=== PATIENT | female | born 1970 | race Caucasian/White ===

== ENCOUNTER → 2023-06-18 | Outpatient (CLI) | payer MEDICAID, SELFPAY ==
--- NOTE | 2023-06-18 15:40 | BI_ITS ---
MAMMOGRAPHY - BILATERAL SCREENING REASON FOR EXAM: Female, 52 years old. Routine annual screening examination. PERTINENT HISTORY: Grandmother with breast cancer. TECHNIQUE: Digital bilateral breast shannan (3D mammographic acquisition) in the CC and MLO projections. 2-D mediolateral oblique (MLO) and craniocaudad (CC) views of both breasts were obtained. CAD: Full Field Digital Mammography with Computer Added Detection was performed. COMPARISON: Comparison is made with prior outside examination dated October 27, 2014. FINDINGS: Breast Composition: The breasts are extremely dense, which lowers the sensitivity of mammography. There are no dominant masses or suspicious calcifications. Stable bilateral fat containing axillary lymph nodes. No other significant abnormalities are identified. There has been no significant change since the prior study. BI/SCRN MAMM (CAD)W/SHANNAN BILAT IMPRESSION: Stable bilateral screening mammogram. Yearly follow-up mammogram recommended. (A) ASSESSMENT CATEGORY: BIRADS Category 2: Benign. A letter regarding these results will be sent to the patient by the facility within 30 days. Approximately 10% of breast cancers are not detected by mammography. A normal mammogram should not delay biopsy of a clinically suspicious abnormality. [id number] Electronically Signed: Misha Machado MD at 9:35 EDT ,
== END | disposition home or self-care (01) ==
PROVIDERS: Referring Provider Nurse Practitioner Family; Visit Provider Nurse Practitioner Family
DX: Z12.31 Encounter for screening mammogram for malignant neoplasm of breast (principal); Z80.3 Family history of malignant neoplasm of breast
CPT/HCPCS: 77063; 77067

== ENCOUNTER 2023-10-11 08:09 | Day surgery (SDC) | payer MEDICAID, SELFPAY ==
[2023-10-11] VITALS (7 sets, daily range): BP systolic 100–124; BP diastolic 74–85; PULSE 59–74; RESP 14–17; TEMP 35.9–37; O2SAT 99–100; BMI 29.5
--- NOTE | 2023-10-11 08:36 | PCM.PRE.AN2 ---
ASA Classification* ASA Classification ASA Classification: 2 and 3 Assessment & Plan Anesthesia* Anesthesia Assessment Anesthesia Assessment: Discussed sedation and/or anesthesia options, risks, benefits, and alternatives with patient/parents/legal guardian/POA. Questions invited. The patient/parents/legal guardian/POA seems to understand and agrees to proceed with anesthesia plan. Reviewed the physical assessment, medical history, allergy history and patient home medications list prior to surgery/procedure/anesthetic and documented any changes. Performed airway and anesthesia risk assessments. Anesthesia Type Anesthesia Type: MAC (see written pre anesthesia record for full assessment) Anesthesia Focused Assessment* Airway Assessment Mouth opens: >3 cm Mallampati Score: II Focused Labs Anesthesia Preop lab: CBC CHEMISTRY COAG Pre-Assessment Diagnosis/Proposed Procedure Planned Operative Procedure(s): Colonoscopy,EGD Anesthesia History Anesthesia History - human resources team member: Anesthesia History - human resources team member Hx Hospitalization No 10/02/23 13:44 Any Problems With Anesthesia Yes: SLOW TO COME OUT OF 10/02/23 13:44 ANESTHESIA Cholinesterase deficiency No 10/02/23 13:44 You/Your Family Experience No 10/02/23 13:44 fever (hyperthermia) with Relationship Recent Exposure to Contagious Disease Does patient have nerve No 10/02/23 13:44 stimulator Patient instructed to have device shut off --Does patient have Pacemaker or ICD? When Was Last Pacemaker Check QUESTION #4 FULL TEXT: You/Your Family Experience fever (hyperthermia) with Anesthesia Last Oral Intake Last Oral intake: Last Oral Intake NPO since Meds taken in AM with sips of water? Meds patient instructed to take am of surgery PONV PONV - human resources team member: PONV - human resources team member Female Yes 10/02/23 13:44 HX of Motion Sickness No 10/02/23 13:44 HX of N/V After Surgery No 10/02/23 13:44 Non-Smoker No 10/02/23 13:44 Duration of Surgery greater No 10/02/23 13:44 than 60 minutes Number of Risk Factors 1 10/02/23 13:44 PONV Score Low Risk 10/02/23 13:44 Height & Weight Height & Weight: Anesthesia: Height & Weight Height 5 ft 9 in 07/13/23 08:34 Respiratory Assessment Respiratory Assessment - human resources team member: Respiratory Tract Infection Hx - human resources team member Hx Respiratory Tract Infection No 10/02/23 13:44 STOP Sleep Apnea STOP Sleep Apnea - human resources team member: STOP Sleep Apnea - human resources team member Hx Hypertension Yes 10/02/23 13:44 Hx Sleep Apnea No 10/02/23 13:44 CPAP BIPAP Do you snore loudly (louder Yes 10/02/23 13:44 than talking or can be heard Do you often feel tired/ No 10/02/23 13:44 fatigued/ sleepy during daytime? Has anyone observed you stop No 10/02/23 13:44 breathing during sleep? STOP Results Positive 10/02/23 13:44 QUESTION #5 FULL TEXT : Do you snore loudly (louder than talking or can be heard through closed doors)? 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 Specify any problems Hx of Preganancy in last 3 No 10/02/23 13:44 Months Nurse Filling Out Transfusion SFRANTZ 10/02/23 13:44 & Questions: Date: 10/02/23 10/02/23 13:44 Time: 13:47 10/02/23 13:44 Patient unable to answer at this time (ie. confused, unrespo /Reproduction History /Reproductive History - human resources team member: /Reproductive Hx- human resources team member Hx Now No 10/02/23 13:44 Gestational Age (in weeks): EDC: Hx Hx Para Hx Section SAB No 10/02/23 13:44 Active Medications Active Medications: Current Medications Generic Name Dose Route Start Last Admin Trade Name Freq PRN Reason Stop Dose Admin Lactated Ringer's 1,000 mls @ 15 mls/hr 10/11/23 08:[address] [facility] Medical History Wears hearing aid Post-menopausal History of steroid therapy Gastric reflux Non-smoker History of edema History of stress test Hypertension History of broken leg Kidney anomaly, congenital (~09/10/23) History of kidney problems delivery delivered Home Medications ?Medication ?Instructions ?Recorded ?Last Taken ?Type amlodipine 5 mg tablet 5 mg PO QDAY 07/13/23 Unknown History atorvastatin 10 mg tablet 10 mg PO QDAY 07/13/23 Unknown History cholecalciferol (vitamin D3) 50 100 mcg PO QDAY 07/13/23 Unknown History mcg (2,000 unit) capsule (Vitamin D3) fluticasone propionate 50 1 spray intranasal DAILY 07/13/23 Unknown History mcg/actuation nasal spray,suspension lisinopril 40 mg tablet 40 mg PO QDAY 07/13/23 Unknown History loratadine 10 mg tablet 10 mg PO QDAY 07/13/23 Unknown History omeprazole 20 mg capsule,delayed 20 mg PO QDAY 07/13/23 Unknown History release simvastatin 20 mg tablet 20 mg PO DAILY hyperlipidemia 07/13/23 Unknown History vitamin E (dl, acetate) 180 mg 180 mg PO QDAY 07/13/23 Unknown History (400 unit) capsule aspirin 81 mg chewable tablet 1 tab PO DAILY 10/02/23 Unknown History (Nuvia Chewable Low Dose Aspirin) cranberry 500 mg capsule 500 mg PO DAILY 10/02/23 Unknown History Allergy/AdvReac Type Severity Reaction Status Date / Time bee venom protein (honey bee) Allergy Severe Anaphylaxis Verified 10/02/23 13:28 Sulfa (Sulfonamide Allergy Severe Anaphylaxis Verified 10/02/23 13:28 Antibiotics) Family History Grandmother Breast cancer Father Heart disease Myocardial infarction Social History Smoking Status: Never smoker alcohol intake: never substance use type: does not use Review of Systems (Anesthesia) ROS Narrative System reviewed and no additional complaints, except as documented.
[2023-10-11] MEDS: Lactated Ringers 1,000 ML 15 ML IV (08:43)
--- NOTE | 2023-10-11 09:30 | IMM_PTH ---
PATIENT: ERI MEMRBENO LOC: EN U#:[id number] AGE/SX: 53/F ROOM: RE10/11/[address]: Dr. Javier Jones MD : 1970 BED: DIS: 10/11/2023 SPEC #: [id number] RECD: 10/11/23 13:55 STATUS: FIOR REGustavo #: [id number] MINERVA: 10/11/23 09:[address]: Javier Jones DEPT: IMMUNOHISTOCHEMISTRY RECD BY: Pedro Luis Floyd ENTERED: 10/11/23 13:55 SP TYPE: IMMUNO OTHR DR: [facility] Tissues: A - Gastric mucous membrane Procedures: H Pylori (initial) PHYSICIAN & INSTITUTION [place] [address] SPECIMEN INFORMATION: Tissue Source: A- Antrum biopsy Clinical Info: GERD, screening for colon cancer Specimen Number: [id number] CPT code: 34585 METHODOLOGY: Deparaffinized sections of prefer/formalin-fixed tissue or PAP/DQ stained slides are incubated with monoclonal/polyclonal antibodies/oligonucleotide probes. Localization is made via biotin free immunoperoxidase method. Appropriate controls are performed and reacted as expected. Results on target cell population are indicated in the following table: RESULTS: ANTIBODY / CLONE RESULT Block A H Pylori (polyclonal) negative These tests were developed and their performance characteristics determined by [facility]. They may not have been cleared or approved by the U.S. Food and Drug Administration. The FDA has determined that such clearance or approval is not necessary. The above immunohistochemical/dualISH markers are ordered and reviewed by the Pathologist. INTERPRETATION: A. Antrum, biopsy: Negative for Helicobacter pylori organisms. LOIS/ 10/12/2023
--- NOTE | 2023-10-11 09:30 | COLBX_PTH ---
PATIENT: ERI MEMBRENO LOC: EN U#:[id number] AGE/SX: 53/F ROOM: RE10/11/[address]: Dr. Javier Jones MD : 1970 BED: DIS: 10/11/2023 SPEC #: [id number] RECD: 10/11/23 13:23 STATUS: FIOR BERNA #: [id number] MINERVA: 10/11/23 09:[address]: Javier Jones DEPT: SURGICAL PATHOLOGY RECD BY: Ant Villafana ENTERED: 10/11/23 13:42 SP TYPE: COLON BX OTHR DR: Bre[facility] Tissues: A - Gastric mucous membrane B - Gastric mucous membrane C - Esophagus, NOS D - Esophagus, NOS E - Sigmoid colon biopsy F - Rectum, NOS Procedures: Surgery Specimen Level IV HEADER OPERATION: Colonoscopy, polypectomy, biopsy, hemostasis clip EGD PRE-OP DIAGNOSIS: GERD, screening for colon cancer TISSUE SUBMITTED: A- Antral biopsy, B- Fundal mucosal biopsy, C- Gastroesophageal junction biopsy, D- Mid esophagus, E- Sigmoid polyp, F- Rectal mucosal biopsy MICROSCOPIC DIAGNOSIS A. Antral biopsy: Mild gastritis. See microscopic description and comment. B. Fundal mucosa, biopsy: Fragments of gastric mucosa with mild chronic inflammation and focal changes suggestive of fundic gland polyp. C. Gastroesophageal junction, biopsy: A fragment of gastroesophageal mucosa with chronic inflammation. Intestinal metaplasia (goblet cell metaplasia) not identified. See comment. D. Mid esophagus, biopsy: Fragments of squamous mucosa with mild chronic inflammation. E. Sigmoid colon polyp, polypectomy: Fragments of tubular adenoma. F. Rectal mucosa, biopsy: A fragment of colonic mucosa, no pathologic diagnosis. LOIS/ 10/12/2023 COMMENT A. The results of immunohistochemistry for Helicobacter pylori will be reported separately ([id number]). C. This specimen predominantly consists of gastric mucosa. Alcian blue/PAS stain with matched control is used in the evaluation of the specimen. MICROSCOPIC DESCRIPTION Slides are reviewed. A. The specimen shows fragments of gastric mucosa with chronic inflammatory cell infiltrates in the lamina propria consisting of lymphocytes and plasma cells, consistent with mild chronic gastritis. GROSS DESCRIPTION A. Received in fixative is one container labeled with the patient's name and designated Antral biopsy. The specimen consists of two irregular fragments of light youngblood soft tissue that in aggregate measure 0.5 x 0.3 x 0.1 cm. The specimen is totally submitted in one cassette. B. Received in fixative is one container labeled with the patient's name and designated Fundal mucosal biopsy. The specimen consists of two irregular fragments of light youngblood soft tissue that measures 0.5 x 0.3 x 0.1 cm. The specimen is totally submitted in one cassette. C. Received in fixative is one container labeled with the patient's name and designated GE junction biopsy. The specimen consists of one irregular fragment of light youngblood soft tissue that measures 0.3 x 0.3 x 0.1 cm. The specimen is totally submitted in one cassette. D. Received in fixative is one container labeled with the patient's name and designated Mid esophagus biopsy. The specimen consists of multiple irregular fragments of light youngblood soft tissue that in aggregate measure 0.6 x 0.3 x 0.1 cm. The specimen is totally submitted in one cassette. E. Received in fixative is one container labeled with the patient's name and designated Sigmoid polyp. The specimen consists of multiple irregular fragments of light youngblood soft tissue that in aggregate measure 1.0 x 0.3 x 0.1 cm. The specimen is totally submitted in one cassette. F. Received in fixative is one container labeled with the patient's name and designated Rectal mucosal biopsy. The specimen consists of one irregular fragment of light youngblood soft tissue that measures 0.3 x 0.3 x 0.1 cm. The specimen is totally submitted in one cassette. LOIS/ 10/11/2023 TC:1 CPT:05011w4,59228
--- NOTE | 2023-10-11 09:45 | HP.PCM_ITS ---
History and Physical Date of Admission: 10/11/23 Date of Service: 07/13/23 MR#: [id number] Acct: [id number] Name: ERI MEMBRENO Rep #: [id number] : 1970 Provider: Dr. Javier Jones MD Age/Sex: 52/F Location: [facility] Status: Signed Intake Vital Signs 07/13/2407:34 Height 5 ft 9 in Weight: 199 lb 6 oz BMI 29.4 BP 120/82 H Blood Pressure Location Rt brachial Position Sitting Respiration 18 Pulse 69 Pulse Source Monitor Temp 97.2 F L Temp Source Temporal Pulse Oximetry (%) 98 Oxygen Delivery Method room air Intake Visit Reasons: GERD , SCREENING SCOPE Chief Complaint: GERD screening scope Is patient in pain?: No Allergies bee venom protein (honey bee) Allergy (Severe, Verified 07/13/23 08:35) AnaphylaxisSulfa (Sulfonamide Antibiotics) Allergy (Severe, Verified 07/13/23 08:35) Anaphylaxis Medications amlodipine 5 mg tablet 5 mg PO QDAY 07/13/23 [History Confirmed 07/13/23] atorvastatin 10 mg tablet 10 mg PO QDAY 07/13/23 [History Confirmed 07/13/23] cholecalciferol (vitamin D3) 50 mcg (2,000 unit) capsule (Vitamin D3) 100 mcg PO QDAY 07/13/23 [History Confirmed 07/13/23] fluticasone propionate 50 mcg/actuation nasal spray,suspension spray intranasal 07/13/23 [History Confirmed 07/13/23] lisinopril 40 mg tablet 40 mg PO QDAY 07/13/23 [History Confirmed 07/13/23] loratadine 10 mg tablet 10 mg PO QDAY 07/13/23 [History Confirmed 07/13/23] omeprazole 20 mg capsule,delayed release 20 mg PO QDAY 07/13/23 [History Confirmed 07/13/23] simvastatin 20 mg tablet 20 mg PO QPM hyperlipidemia 07/13/23 [History Confirmed 07/13/23] vitamin E (dl, acetate) 180 mg (400 unit) capsule 180 mg PO QDAY 07/13/23 [History Confirmed 07/13/23] PFSH Medical History (Updated 07/13/23 @ 20:[address] Javier Jones MD) delivery delivered Family History (Updated 07/13/23 @ 08:34 by Lisa Fry LPN) Grandmother Breast cancerFather Heart disease Myocardial infarction Social History (Updated 07/13/23 @ 08:34 by Lisa Fry LPN) Smoking Status: Never smoker alcohol intake: never substance use type: does not use HPI HPI HPI: Patient is a 52-year-old female who presents for further evaluation of gastroesophageal reflux disease as well as scheduling screening colonoscopy. They are referred for surgical consultation from Blanquita Lim NP of the [facility]. Patient states that she was first diagnosed with gastroesophageal reflux disease approximately 5 years ago when she was begun on omeprazole. She shares that unfortunately she lost her insurance and was unaware of [id number] PPI therapy so she effectively went off of omepr azole January and March 2023. She shares she had many symptoms during this time and was only later in this interval made aware of the [id number] option. She notes that her symptoms are very well-controlled on omeprazole and that she experiences No breakthrough symptoms even when eating spicy foods. She denies any prior history of EGD. She does confirm that her symptoms are those of reflux rather than heartburn when they are experienced and she describes them as burning like a shot of fireball. She denies any frequent nighttime awakenings. She states she takes dinner between 5 and 7 in the evening and is in bed by 11. She reports she is unable to prop her head because she gets a stiff neck. Patient has not had prior colonoscopy nor any other screening for colon cancer. They describe their bowel habits as normal. They have approximately 2 bowel movements per day and spend roughly a few minutes on the toilet without significant straining. They have not noticed recent bleeding or dark stools. They do not regularly take fiber supplements. Patient has no family history of colon cancer, inflammatory bowel disease, or diverticulitis. The patient's weight is stable. The patient is not prescribed anticoagulants/blood thinners. Relevant prior abdominal surgical history includes: section ROS General General: No weight change, appetite, fatigue, colon cancer, breast cancer or weakness HEENT HEENT: No difficulty swallowing, eye injury, eye surgery, swollen glands or hoarseness Endo Endocrine: No thyroid disease, diabetes mellitus, thyroid cancer, Hair loss, heat intolerance or cold intolerance Skin Skin: No rash or changing moles Musc Musculoskeletal: No back problems, arthritis, rheumatoid arthritis, gout or joint pain Cardio Cardiovascular: Yes high blood pressure; No murmur, pacemaker, heart disease, atrial fibrillation, heart attack, heart stent, palpitations, shortness of breat with exertion or chest pain Psych Psychiatric: Yes anxiety; No depression or hearing voices Resp Respiratory: No shortness of breath, Yes sleep apnea, No cough, No COPD, No asthma, No emphysema and No wheezing Gastro Gastrointestinal: No abdominal pain, No nausea or vomiting, No diarrhea, No constipation, No blood in stool, Yes acid reflux, No hemorrhoids, No ulcers, No gallbladder problem and No black,tarry stools Terry Hematologic: No blood thinners, No blood disorders, No bleeding, No anemia and No blood clots Neuro Neurologic: No numbness, No tingling and No weakness Exam Const General: cooperative and no acute distress Resp Effort & Inspection: normal respiratory effort GI Inspection: non-distended Palpation: soft and nontender Assessment and Plan Assessment and Plan (1) GERD (gastroesophageal reflux disease): Status: Chronic Comment: Patient has a history of chronic gastroesophageal reflux disease that is well- controlled on PPI therapy (omeprazole). In fact, she denies any significant breakthrough symptoms. She has never underwent investigative EGD for this diagnosis and wishes to be checked out for this issue at the same time as her colonoscopy, however, she is not necessarily inclined to pursue antireflux surgery at this time. Plan: EGD to be scheduled concurrent with screening colonoscopy below (2) Screening for colon cancer: Status: Acute Comment: Patient is a 52-year-old female who appears to be at average risk for colon cancer and denies any GI?related symptoms. She has never underwent prior colon cancer screening and wishes to do so at this time. She wishes to know the necessity of this procedure and I inform her that she is 8 years past due given the recommended age of 44 to begin screening. When frame this way she states that she is willing to proceed as recommended. We discussed the need to completed bowel prep as well as the procedure and post procedure results reporting. Plan: Plan will be to complete colonoscopy on first mutually agreeable date under local MAC. Pre-procedure prep discussed and paper instructions provided. Patient is also made aware that she will need to have a cdl truck driver with her the day of the procedure. I have examined the patient and the H&P has been reviewed. There are no clinical changes since date of exam. She does confirm she completed a prep for today's procedure and her output is now clear. She denies any questions related to the procedure. Will now proceed to endoscopy suite for EGD and colonoscopy as discussed in greater detail above.
--- NOTE | 2023-10-11 10:42 | PCM.POST.ANE ---
Anesthesia: Postop Eval I Current Vital Signs Temperature: 98.6 F Pulse Rate: 70 Blood Pressure: 118/85 Respiratory Rate: 14 Pulse Ox: 100 Assessment Airway patent: Yes Spontaneous unlabored respirations: Yes nausea: No Vomiting: No Anesthesia Complication: No Fluid Hydration Crystalloid volume administer (ml): 1 Total IV fluid infused: 1 Progress Note Anesthesia document: Postop Eval 1 completed: No
--- NOTE | 2023-10-11 10:56 | OP.EGD_ITS ---
Patient Name: Tamara Jose Procedure Date: 10/11/2023 9:41 AM Date of : 1970 Age: 53 Procedure: Upper GI endoscopy Indications: Gastro-esophageal reflux disease Providers: Javier Jones MD Referring MD: Breanna Mckeon [facility] Medicines: See the Anesthesia note for documentation of the administered medications Patient Profile: Refer to note in patient chart for documentation of history and physical. Complications: No immediate complications. Estimated blood loss: Minimal. Procedure: Pre-Anesthesia Assessment: - The heart rate, respiratory rate, oxygen saturations, blood pressure, adequacy of pulmonary ventilation, and response to care were monitored throughout the procedure. After obtaining informed consent, the endoscope was passed under direct vision. Throughout the procedure, the patient's blood pressure, pulse, and oxygen saturations were monitored continuously. The colonoscope was introduced through the mouth, and advanced to the second part of duodenum. The upper GI endoscopy was somewhat difficult due to the patient's oxygen desaturation. Successful completion of the procedure was aided by withdrawing and reinserting the scope, performing chin lift, administering oxygen and treating with ventilation. The patient tolerated the procedure fairly well. Scope In: 9:57:08 AM Scope Out: 10:17:41 AM Total Procedure Duration Time 0 hours 20 minutes 33 seconds Findings: No gross lesions were noted in the duodenal bulb, in the first portion of the duodenum and in the second portion of the duodenum. No biopsies or other specimens were collected for this exam. Striped moderately erythematous mucosa without bleeding was found in the gastric body and in the gastric antrum. Biopsies were taken with a cold forceps for histology. Estimated blood loss was minimal. Localized granular mucosa was found in the gastric fundus. Biopsies were taken with a cold forceps for histology. Estimated blood loss was minimal. A small hiatal hernia was present. The Z-line was irregular and was found 38 cm from the incisors. Biopsies were taken with a cold forceps for histology. Estimated blood loss was minimal. A few 2 to 4 mm mucosal nodules with a localized distribution were found in the middle third of the esophagus. Biopsies were taken with a cold forceps for histology. Estimated blood loss was minimal. The exam was otherwise without abnormality. Impression: - No gross lesions in the duodenal bulb, in the first portion of the duodenum and in the second portion of the duodenum. No specimens collected. - Erythematous mucosa in the gastric body and antrum. Biopsied. - Granular gastric mucosa. Biopsied. - Small hiatal hernia. - Z-line irregular, 38 cm from the incisors. Biopsied. - Mucosal nodule found in the esophagus. Biopsied. - The examination was otherwise normal. Recommendation: - Discharge patient to home (via wheelchair). - Resume previous diet today. - No aspirin, ibuprofen, naproxen, or other non-steroidal anti-inflammatory drugs for 2 days after biopsy. - Continue present medications. - Await pathology results. - Telephone my office for pathology results in 1 week. Procedure Code(s): --- Professional --- 47648, Esophagogastroduodenoscopy, flexible, transoral; with biopsy, single or multiple Diagnosis Code(s): --- Professional --- K31.89, Other diseases of stomach and duodenum K44.9, Diaphragmatic hernia without obstruction or gangrene K22.89, Other specified disease of esophagus K21.9, Gastro-esophageal reflux disease without esophagitis CPT copyright 2021 [employer]. All rights reserved. The codes documented in this report are preliminary and upon medical billing coder review may be revised to meet current compliance requirements. Javier Jones MD 10/11/2023 10:56:12 AM This report has been signed electronically. Number of Addenda: 0 Note Initiated On: 10/11/2023 9:41 AM
--- NOTE | 2023-10-11 10:56 | OP.CCLET_ITS ---
[facility] This procedure was performed on September. My impressions and recommendations are as follows: Impressions : - No gross lesions in the duodenal bulb, in the first portion of the duodenum and in the second portion of the duodenum. No specimens collected. - Erythematous mucosa in the gastric body and antrum. Biopsied. - Granular gastric mucosa. Biopsied. - Small hiatal hernia. - Z-line irregular, 38 cm from the incisors. Biopsied. - Mucosal nodule found in the esophagus. Biopsied. - The examination was otherwise normal. Recommendations : - Discharge patient to home (via wheelchair). - Resume previous diet today. - No aspirin, ibuprofen, naproxen, or other non-steroidal anti-inflammatory drugs for 2 days after biopsy. - Continue present medications. - Await pathology results. - Telephone my office for pathology results in 1 week. My findings are described in the full procedure note, which is enclosed. If I can be of further assistance, please feel free to contact me at Doctor phone number(s): , Work: . Sincerely, Javier Jones MD 10/11/2023 10:56:12 AM This report has been signed electronically.
--- NOTE | 2023-10-11 10:58 | PCM.POSTANE2 ---
Anesthesia Postop Eval I Sum Postop Eval Completion status Anesthesia document: Postop Eval 1 completed: No Anesthesia Postop Eval I Summary Anesthesia Postop Eval I Summary: Anesthesia Postop Eval I: Assessment Summary Airway patent Yes 10/11/23 10:42 Spontaneous unlabored Yes 10/11/23 10:42 respirations Mental status nausea No 10/11/23 10:42 Vomiting No 10/11/23 10:42 Anesthesia Postop Eval I: Fluid Summary Crystalloid volume administer 1 10/11/23 10:42 (ml) Colloids volume administered ( ml) Blood Product volume administered (ml) Total IV fluid infused 1 10/11/23 10:42 Anesthesia Postop Eval I: Summary Notes Anesthesia Complication No 10/11/23 10:42 Anesthesia Complication Comment: Post-operative progress note Anesthesia: Postop Eval II Evaluation Mental status: Awake Pain Level: 0 nausea: No Vomiting: No
--- NOTE | 2023-10-11 11:03 | OP.CCLET_ITS ---
10/11/2023 Breanna Mckeon [facility] Re : [facility] This procedure was performed on September. My impressions and recommendations are as follows: Impressions : - Congested mucosa in the rectum. Biopsied. - One 5 mm, non-bleeding polyp in the sigmoid colon, removed with a hot snare. Resected and retrieved. Recommendations : - Discharge patient to home (via wheelchair). - Resume previous diet today. - No aspirin, ibuprofen, naproxen, or other non-steroidal anti-inflammatory drugs for 2 days after biopsy. - Await pathology results. - Repeat colonoscopy date to be determined after pending pathology results are reviewed for surveillance based on pathology results. - Telephone my office for pathology results in 1 week. My findings are described in the full procedure note, which is enclosed. If I can be of further assistance, please feel free to contact me at Doctor phone number(s): , Work: . Sincerely, Javier Jones MD 10/11/2023 11:02:35 AM This report has been signed electronically.
--- NOTE | 2023-10-11 11:03 | OP.COLON_ITS ---
Patient Name: Tamara Jose Procedure Date: 10/11/2023 10:17 AM Date of : 1970 Age: 53 Procedure: Colonoscopy Indications: Screening for colorectal malignant neoplasm Providers: Javier Jones MD Referring MD: Breanna Mckeon [facility] Medicines: See the Anesthesia note for documentation of the administered medications Patient Profile: Refer to note in patient chart for documentation of history and physical. Last Colonoscopy: none. The patient's first colonoscopy is today. Complications: No immediate complications. Estimated blood loss: Minimal. Procedure: Pre-Anesthesia Assessment: - The heart rate, respiratory rate, oxygen saturations, blood pressure, adequacy of pulmonary ventilation, and response to care were monitored throughout the procedure. - The heart rate, respiratory rate, oxygen saturations, blood pressure, adequacy of pulmonary ventilation, and response to care were monitored throughout the procedure. After I obtained informed consent, the scope was passed under direct vision. Throughout the procedure, the patient's blood pressure, pulse, and oxygen saturations were monitored continuously. The colonoscope was introduced through the anus and advanced to the cecum, identified by palpation. The colonoscopy was somewhat difficult due to significant looping. Successful completion of the procedure was aided by changing the patient to a supine position and straightening and shortening the scope to obtain bowel loop reduction. The patient tolerated the procedure fairly well. The quality of the bowel preparation was adequate to identify polyps greater than 5 mm in size. Scope In: 10:19:10 AM Scope Withdrawal Time 0 hours 17 minutes 14 seconds Scope Out: 10:44:35 AM Total Procedure Duration Time 0 hours 25 minutes 25 seconds Findings: The perianal and digital rectal examinations were normal. Pertinent negatives include normal sphincter tone. An area of mildly congested mucosa was found in the rectum. Biopsies were taken with a cold forceps for histology. Estimated blood loss: 3 mL requiring treatment with placement of hemostatic clip(s). A 5 mm, non-bleeding polyp was found in the sigmoid colon. The polyp was pedunculated. The polyp was removed with a hot snare. Resection and retrieval were complete. Estimated blood loss was minimal. Impression: - Congested mucosa in the rectum. Biopsied. - One 5 mm, non-bleeding polyp in the sigmoid colon, removed with a hot snare. Resected and retrieved. Recommendation: - Discharge patient to home (via wheelchair). - Resume previous diet today. - No aspirin, ibuprofen, naproxen, or other non-steroidal anti-inflammatory drugs for 2 days after biopsy. - Await pathology results. - Repeat colonoscopy date to be determined after pending pathology results are reviewed for surveillance based on pathology results. - Telephone my office for pathology results in 1 week. Procedure Code(s): --- Professional --- 75754, Colonoscopy, flexible; with removal of tumor(s), polyp(s), or other lesion(s) by snare technique 17557, 59, Colonoscopy, flexible; with biopsy, single or multiple Diagnosis Code(s): --- Professional --- Z12.11, Encounter for screening for malignant neoplasm of colon K62.89, Other specified diseases of anus and rectum D12.5, Benign neoplasm of sigmoid colon CPT copyright 2021 [employer]. All rights reserved. The codes documented in this report are preliminary and upon leather etcher review may be revised to meet current compliance requirements. Javier Jones MD 10/11/2023 11:02:35 AM This report has been signed electronically. Number of Addenda: 0 Note Initiated On: 10/11/2023 10:17 AM
== END 2023-10-11 11:45 | disposition home or self-care (01) ==
LOC: EN 08:12 → AC 08:12
PROVIDERS: Visit Provider Surgery
PROC: 0DJD8ZZ Inspection of Lower Intestinal Tract, Via Natural or Artificial Opening Endoscopic (ICD-10-PCS; CPT 45378; principal; 2023-10-11 09:25)
DX: Z12.11 Encounter for screening for malignant neoplasm of colon (principal); K21.9 Gastro-esophageal reflux disease without esophagitis; K44.9 Diaphragmatic hernia without obstruction or gangrene; K63.5 Polyp of colon; Z79.899 Other long term (current) drug therapy; K31.89 Other diseases of stomach and duodenum; K22.89 Other specified disease of esophagus; K62.89 Other specified diseases of anus and rectum; K29.70 Gastritis, unspecified, without bleeding
CPT/HCPCS: 45380; 45385; 43239; 45382; 88305; 88342; J7120; J2405

== ENCOUNTER → 2024-01-15 | Outpatient (CLI) | payer MEDICAID, SELFPAY ==
[2024-01-23 14:10] LABS: Age Gdln ACOG Testing 30-65 (.); HPV APTIMA, High Risk Negative (Negative)
[2024-01-23 15:52] LABS: HPV Reflexed? YES, CHARGE PATIENT
== END | disposition home or self-care (01) ==
PROVIDERS: Referring Provider Nurse Practitioner Family; Visit Provider Nurse Practitioner Family
DX: Z01.419 Encounter for gynecological examination (general) (routine) without abnormal findings (principal)
CPT/HCPCS: 87624; 88175; G0145

== ENCOUNTER → 2024-03-24 | Outpatient (CLI) | payer MEDICAID, SELFPAY ==
--- NOTE | 2024-03-24 06:55 | CT_ITS ---
STUDY: CT CHEST WITHOUT CONTRAST REASON FOR EXAM: Female, 53 years old. HYPERTENSION RADIATION DOSAGE (If Supplied By Facility): CTDIvol = ( 12.19 ) mGy, DLP = ( 195.04 ) mGycm TECHNIQUE: Transaxial imaging was performed without the administration of intravenous contrast material. Cardiac over read examination. Individualized dose optimization techniques were used for this CT. COMPARISON: No relevant priors. FINDINGS: CHEST Increased linear markings at the lung bases slightly worse on the right side suggestive of scarring. Calcified granuloma in the superior aspect of the left lower lobe. Focal right calcified pleural plaque There are calcifications of the coronary arteries. Normal mediastinum. Normal hilar regions. Normal unenhanced pulmonary arteries. Normal aorta arch and descending thoracic aorta. There are degenerative changes of the thoracic spine. There is no demonstrated abnormality of the visualized upper abdomen. CT/Limited Chest CT Cardiac Only IMPRESSION: Findings suggestive of bibasilar scarring and calcified granuloma in the superior aspect of the left lower lobe. Coronary artery calcification. Electronically Signed: Misha Machado MD at 12:20 EST ,
--- NOTE | 2024-03-24 08:10 | CA.SCORE ---
Calcium Scoring Date of Study:: 03/24/24 Indications Indications: Hypertension hyperlipidemia Coronary Calcium Scoring: High-resolution Computed Tomographic imaging of the chest was performed on [03/24/2024], with particular attention paid to the coronary arteries. Images from the examination were analyzed for the presence and extent of coronary artery calcification , using coronary calcium quantification software. The patient tolerated the procedure well and there were no complications. The results of the coronary calcification analysis are provided below. Findings Coronary Artery Left Main (LM): 48 Left Anterior Descending (LAD): 87 Left Circumflex (LCX): 0 Right Coronary Artery (RCA): 0 Total Agatston Score: 135 Percentile Ranking: Greater than 90th percentile Calcium Scoring Interpretation: Different methods to categorize the overall amount of coronary plaque. Overall amount CAC SIS Visual of coronary plaque P1 Mild -100 <2 1-2 vessels with mild amount of plaque P2 Moderate 101-300 3-4 1-2 vessels with moderate amount, 3 vessels with mild amount of plaque P3 Severe 301-999 5-7 3 vessels with moderate amount, 1 vessel with severe amount of plaque P4 Extensive >1000 >8 2-3 vessels with severe amount of plaque Calcium Score: Moderate: 1-2 vessels w/moderate amt, 3 vessels w/mild amt of plaque Conclusion: Moderate atherosclerotic plaquing noted in 1-2 vessels.
== END | disposition home or self-care (01) ==
PROVIDERS: PCP Nurse Practitioner Family; Referring Provider Nurse Practitioner Family; Visit Provider Nurse Practitioner Family
DX: I10 Essential (primary) hypertension (principal); E78.5 Hyperlipidemia, unspecified; Z82.49 Family history of ischemic heart disease and other diseases of the circulatory system
CPT/HCPCS: 75571; 76380

== ENCOUNTER → 2024-06-13 | Outpatient (CLI) | payer MEDICAID, SELFPAY ==
--- NOTE | 2024-06-17 14:42 | STRESSREP_ITS ---
Stress Test Report Date: 06/13/2024 Procedure: Exercise tolerance test Indications: CAD Consent: Per the patient Procedure: The patient exercised on a Jean Carlos protocol for 6 minutes achieving a peak heart rate of 166 bpm (100% predicted maximal heart rate) with a peak blood pressure 162/90 mmHg and a peak MET capacity of approximately 7 MET's. The baseline ECG demonstrated normal sinus rhythm. The peak exercise ECG demonstrated no significant ischemic changes. [There were no cardiac dysrhythmias pretest, during exercise, or recovery]. The functional capacity was considered normal for age. The patient had no complaint of chest discomfort during exercise or recovery. The examination was discontinued secondary to achieving target heart rate. Impression: 1. Technically adequate (percent predicted maximal heart rate greater than 85%) exercise tolerance test 2. Stress test is negative for exercise-induced chest pain. 3. Stress test test is negative for exercise-induced EKG changes of ischemia. 4. Functional capacity is normal for age This note was generated with [employer] software. It may contain incorrect words, spelling, and punctuation that were not noted in checking the note before signing.
== END | disposition home or self-care (01) ==
LOC: CVS 11:08
PROVIDERS: PCP Nurse Practitioner Family; Referring Provider Internal Medicine Cardiovascular Disease; Visit Provider Internal Medicine Cardiovascular Disease
DX: E78.5 Hyperlipidemia, unspecified (principal); I25.10 Atherosclerotic heart disease of native coronary artery without angina pectoris
CPT/HCPCS: 93017

== ENCOUNTER → 2024-06-20 | Outpatient (CLI) | payer MEDICAID, SELFPAY ==
--- NOTE | 2024-06-20 09:56 | BI_ITS ---
EXAM: SCRN MAMM (CAD)W/SHANNAN BILAT 06/20/2024 CLINICAL HISTORY: F, Age 53 y/o , SCREENING. Family history of breast cancer in maternal grandmother in her 70s. TECHNIQUE: Bilateral screening digital breast tomosynthesis with 2D and 3D images. Computer aided detection. COMPARISON: 06/18/2023 FINDINGS: TISSUE DENSITY: The breast tissue is heterogenously dense, which may obscure small masses. The mammogram demonstrates that the patient has dense breasts. Supplemental screening with whole breast ultrasound or MRI may be considered for further evaluation. Bilateral Breast Mammographic Findings: No significant masses, calcifications or other abnormalities are identified. BI/SCRN MAMM (CAD)W/SHANNAN BILAT IMPRESSION: There is no mammographic evidence of malignancy in either breast. OVERALL FINAL ASSESSMENT: BIRADS 1 NEGATIVE. RECOMMENDATION: Routine annual follow-up in 1 Year A letter with findings and recommendations will be mailed to the patient. Reading Location: [id number]
== END | disposition home or self-care (01) ==
PROVIDERS: PCP Nurse Practitioner Family; Referring Provider Nurse Practitioner Family; Visit Provider Nurse Practitioner Family
DX: Z12.31 Encounter for screening mammogram for malignant neoplasm of breast (principal); Z80.3 Family history of malignant neoplasm of breast
CPT/HCPCS: 77063; 77067

== ENCOUNTER → 2024-09-10 | Outpatient (CLI) | payer MEDICAID, SELFPAY ==
[2024-09-10 17:09] LABS: Absolute Lymphocyte Count 0.77 X10^3/uL (0.83-4.51); Absolute Neutrophil Count 5.2 X10^3/uL (2.0-7.7); Basophil# 0.03 X10^3/uL; Basophil% 0.4 % (0-1); Eosinophil# 0.47 X10^3/uL; Eosinophils% 6.9 % (0-5); Hematocrit 41.7 % (37-47); Hemoglobin 13.8 g/dL (12.0-15.0); Lymphocyte # 0.77 X10^3/ul (0.83-4.51); Lymphocyte % 11.4 % (19-41); Mean Corp Hgb Conc 33.1 g/dL (32-36); Mean Corpuscular Hgb 30.9 pg (27.0-32.0); Mean Corpuscular Volume 93.3 fL (81-99); Mean Platelet Vol. 11.9 fl (6.2-12.0); Monocyte# 0.27 X10^3/uL; NRBC Flagged by Analyzer 0 % (0-5); Neutrophil % 76.9 % (47-70); Platelet Count 216 K/mm3 (150-450); RBC Distribution Width CV 13.5 % (11.6-14.6); RBC Distribution Width SD 45.9 fl (35.1-43.9); Red Blood Count 4.47 M/mm3 (4.2-5.4); White Blood Count 6.8 K/mm3 (4.4-11.0)
[2024-09-10 17:50] LABS: ALB/GLOB Ratio 1.3 RATIO (0.9-2.4); AST(SGOT) 98 U/L (<=31); Alanine Aminotransfer ALT/SGPT 100 U/L (<=34); Albumin, Serum 3.8 g/dL (3.5-5.0); Alkaline Phosphatase 74 U/L (35-104); Anion Gap 11 (5-15); BUN 8 mg/dL (4-19); BUN/Creat Ratio 11.9 RATIO (10-20); Bilirubin, Direct 0.27 mg/dL (0.00-0.30); Calcium,Total 9.4 mg/dL (7.6-11.0); Carbon Dioxide 24.4 mmol/L (21.0-32.0); Chloride 104 mmol/L (98-108); Cholesterol 125 mg/dL (<=200); Creatinine, Serum 0.68 mg/dL (0.70-1.20); EST Glomerular Filtration Rate 103 (>60); Globulin 2.9 g/dL (2.2-4.2); Glucose 106 mg/dL (70-99); High Density Lipoprotein 35 mg/dL; Low Density Lipoprotein Calc. 75 mg/dL; Potassium 3.8 mmol/L (3.3-5.1); Protein, Total 6.7 g/dL (5.9-8.4); Sodium Level 139 mmol/L (133-145); Total Bilirubin 0.63 mg/dL (0.00-1.30); Triglycerides 76 mg/dL; Very Low Density Lipoprotein 15 mg/dL (5-40)
--- OUTSIDE RECORDS SUMMARY | 2024-09-10 21:02 | XMS RPT_ITS | CCD ---
Author Organization [facility] CliniSywv Care Team Providers Care Teletype Or Varitype Keyboard Operator Name Role Phone ANGELINA, BERTHA Admitting Unavailable ANGELINA, BERTHA Attending Unavailable ANGELINA, BERTHA Primary Care Unavailable ANGELINA, BERTHA Consulting Unavailable PROVIDER, UNKNOWN Consulting Unavailable ANGELINA, BERTHA Admitting Unavailable ANGELINA, BERTHA Attending Unavailable ANGELINA, BERTHA Primary Care Unavailable ANGELINA, BERTHA Consulting Unavailable PROVIDER, UNKNOWN Consulting Unavailable ANGELINA, BERTHA Admitting Unavailable ANGELINA, BERTHA Attending Unavailable ANGELINA, BERTHA Primary Care Unavailable ANGELINA, BERTHA Consulting Unavailable PROVIDER, UNKNOWN Consulting Unavailable ANGELINA, BERTHA Admitting Unavailable ANGELINA, BERTHA Attending Unavailable ANGELINA, BERTHA Primary Care Unavailable ANGELINA, BERTHA Consulting Unavailable PROVIDER, UNKNOWN Consulting Unavailable ANGELINA, BERTHA Admitting Unavailable ANGELINA, BERTHA Attending Unavailable ANGELINA, BERTHA Primary Care Unavailable ANGELINA, BERTHA Consulting Unavailable PROVIDER, UNKNOWN Consulting Unavailable Angelina DIRECTOR RELIGIOUS EDUCATION, Bertha K Primary Care Provider ANGELINA, BERTHA Attending Unavailable ANGELINA, BERTHA Admitting Unavailable ANGELINA, BERTHA Primary Care Unavailable ANGELINA, BERTHA Consulting Unavailable PROVIDER, UNKNOWN Consulting Unavailable ANGELINA, BERTHA Consulting Unavailable ANGELINA, BERTHA Attending Unavailable ANGELINA, BERTHA Admitting Unavailable ANGELINA, BERTHA Primary Care Unavailable PROVIDER, UNKNOWN Consulting Unavailable ANGELINA, BERTHA Attending Unavailable ANGELINA, BERTHA Admitting Unavailable ANGELINA, BERTHA Primary Care Unavailable ANGELINA, BERTHA Consulting Unavailable PROVIDER, UNKNOWN Consulting Unavailable ZULEMA, VITA E Admitting Unavailable ZULEMA, VITA E Primary Care Unavailable ZULEMA, VITA E Attending Unavailable ANGELINA, BERTHA Consulting Unavailable PROVIDER, UNKNOWN Consulting Unavailable ANGELINA, BERTHA K Primary Care Unavailable DARON MARTINES Attending Unavailable ANGELINA, BERTHA K Primary Care Unavailable CHRISTI MORGAN Attending Unavailable Javier Morales Attending Unavailable Javier Morales Referring Unavailable Raphael [facility], Blanquita [facility] Referring Unavailable [facility], [facility] Mckeon Primary Care Unavailable Javier Jones Consulting Unavailable Javier Jones Attending Unavailable [facility], [facility] Referring Unavailable [facility] [place], [facility] Primary [facility] Unavailable Javier Jones Attending Unavailable [facility] [place], [facility] Primary Care Unavailable Raphael [facility], Blanquita Attending Unavailabl e Raphael [facility], Blanquita Referring Unavailabl e Raphael [facility], Blanquita Attending Unavailabl e Raphael [facility], Blanquita Referring Unavailabl e Raphael [facility], Blanquita [facility] [place], [facility] Primary Care Unavailable Raphael [facility], Blanquita Attending Unavailabl e Raphael [facility], Blanquita Primary Care Unavailabl e Raphael [facility], Blanquita Attending Unavailabl e Raphael [facility], Blanquita Referring Unavailabl e Javier Morales Attending Unavailable Raphael [facility], [place]an[place]ita Referring Unavailabl e Raphael [facility], [facility] Care Unavailable [facility] [place], [facility] Referring Unavailable Javier Jones Attending Unavailable Raphael [facility], Blanquita Consulting Unavailabl e Jhon Caldwell Attending Unavailable Raphael [facility], Blanquita Referring Unavailabl e Raphael [facility], [facility] Primary Care Unavailabl e Javier Morales Consulting Unavailable Javier Morales Referring Unavailable Vijay Mcclelland Attending Unavailabl e Raphael [facility], [facility] Primary Care Unavailabl e Raphael DIRECTOR RELIGIOUS EDUCATION-C, Blanquita Primary Care Provider Raphael DIRECTOR RELIGIOUS EDUCATION-C, Blanquita Attending Provider Raphael DIRECTOR RELIGIOUS EDUCATION-C, Blanquita Referring Provider Raphael DIRECTOR RELIGIOUS EDUCATION-C, Blanquita Other Provider Javi LIM, Dr. Ferreira Attending Provider [phone] Carmen LIM, Dr. Herrera Attending Provider Dr. Javier Morales MD Referring Provider Carmen LIM, Dr. Herrera Other Provider [phone] Krystin LIM, Dr. Linares Attending Provider Allergies Allergy Classification Reported Allergen(s) Allergy Type Date of Onset Reaction(s) Facility (2 sources) bee venom Drug allergy (disorder) [facility] Repository (2 sources) Sulfonamides (Antibiotic) Drug allergy (disorder) [facility] Repository (3 sources) Sulfonamides (Antibiotic); Translations: [SULFA (SULFONAMIDE ANTIBIOTICS)] Propensity to adverse reactions 3 Swelling [facility] (5 sources) Bee Venom Protein (Honey Bee); Translations: [BEE VENOM PROTEIN (HONEY BEE)] Propensity to adverse reactions 3 Anaphylaxis [facility] (1 source) Sulfonamides (Antibiotic) Drug allergy (disorder) 5 [facility] Repository (1 source) bee venom protein (honey bee) Drug allergy (disorder) 5 [facility] Repository (2 sources) Sulfonamides (Antibiotic) Allergy to substance 5 Anaphylaxis [facility] Medications Current Medications Medication Drug Class(es) Dates Sig (Normalized) Sig (Original) amLODIPine 10 mg oral tablet (6 sources) Dihydropyridine Calcium Channel Wyatt Start: 05-23-2024 take 1 tablet by mouth once daily Amlodipine 10 mg tablet Active 10 mg PO daily May 23, 2024 1:00am Start: 07-13-2023 End: 05-23-2024 take 1 tablet by mouth once daily Amlodipine 5 mg tablet Discontinued 5 mg PO daily July 13, 2023 12:00am May 23, 2024 2:05pm amLODIPine (NORV ASC) 10 mg tablet Take by mouth 1 (one) time each day. Active aspirin 81 mg chewable tablet (4 sources) Platelet Aggregation Inhibitor, Nonsteroidal Anti-inflammatory Drug Start: 10-02-2023 Aspirin (Nuvia Ch ewable Aspirin) 81 mg tablet,chewable Active 1 {tbl} PO DAILY October 02, 2023 12:00am take 1 tablet by mouth once joslyn y aspirin 81 mg EC tablet Take 1 tablet (81 mg total) by mouth 1 (one) time each day. Active cholecalciferol 0.05 mg oral capsule (2 sources) Vitamin D Start: 07-13-2023 take 1 capsule by mouth once daily Cholecalciferol (Vitamin D3) (Vitamin D3) 50 mcg (2,000 unit) capsule Active 100 ug PO daily July 13, 2023 12:00am Cranberry (2 sources) Non-Standardized Food Allergenic Extract, Non-Standardized Plant Allergenic Extract Start: 10-02-2023 take 1 capsule by mouth once daily Cranberry 500 mg capsule Active 500 mg PO DAILY October 02, 2023 12:00am administer with a meal fluticasone propionate 0.05 mg/actuat metered dose nasal spray (6 sources) Corticosteroid Start: 07-13-2023 End: 04-29-2024 Fluticasone Propionate 50 mcg/actuation spray,suspension Active 2 NMA INTRANASAL DAILY April 29, 2024 11:38am take 1 spray(s) nasal route once daily fluticasone propionate (FLONASE) 50 mcg/actuation nasal spray Administer 1 spray into each nostril 1 (one) time each day. Shake gently. Before first use, prime pump. After use, clean tip and replace cap. Active lisinopril 40 mg oral tablet (4 sources) Angiotensin Converting Enzyme Inhibitor Start: 07-13-2023 take 1 tablet by mouth once daily Lisinopril 40 mg tablet Active 40 mg PO daily July 13, 2023 12:00am take 1 tablet by mouth once joslyn y lisinopriL (PRINIVIL,ZESTRIL) 10 mg tablet Take 1 tablet (10 mg total) by mouth 1 (one) time each day. Active omeprazole 20 mg delayed release oral capsule (4 sources) Proton Pump Inhibitor Start: 07-13-2023 take 1 capsule by mouth once daily Omeprazole 20 mg capsule,delayed release(DR/EC) Active 20 mg PO daily July 13, 2023 12:00am take 1 capsule by mouth once dmitriy ly omeprazole (PriLOSEC) [address] capsule Take 1 capsule (10 mg total) by mouth 1 (one) time each day. Do not crush or chew. Active vitamin e 180 mg oral capsule (2 sources) Start: 07-13-2023 take 1 capsule by mouth once daily Vitamin E (Dl, Acetate) 180 mg (400 unit) capsule Active 180 mg PO daily July 13, 2023 12:00am Completed/Discontinued Medications Medication Drug Class(es) Dates Sig (Normalized) Sig (Original) acetaminophen 325 mg / HYDROcodone bitartrate 5 mg oral tablet (1 source) Opioid Agonist Start: 03-03-2023 End: 03-03-2023 HYDROcodone-aceta minophen (NORCO) 5-325 mg per tablet 1 tablet acetaminophen 325 mg / oxyCODONE hydrochloride 5 mg oral tablet (2 sources) Opioid Agonist Start: 08-20-2023 End: 08-20-2023 take 1 tablet by mouth once 1 tablet, oral, Once, On Sun08/20/23 at 1715, For 1 dose Start: 08-20-2023 End: 08-23-2023 take 1 tablet by mouth every six hours as needed oxyCODONE-acetaminophen (PERCOCET) 5-325 mg per tablet Take 1 tablet by mouth every 6 (six) hours if needed for severe pain for up to 3 days. Max Daily Amount: 4 tablets 12 tablet 08/20/2023 08/23/2023 Active amoxicillin 500 mg oral capsule (2 sources) Penicillin-class Antibacterial Start: 09-07-2023 End: 10-02-2023 take 1 capsule by mouth three times daily Amoxicillin 500 mg capsule Discontinued 500 mg PO THREE TIMES A DAY September 07, 2023 12:00am October 02, 2023 1:29pm atorvastatin 80 mg oral tablet (6 sources) HMG-CoA Reductase Inhibitor Start: 05-23-2024 End: 06-19-2024 take 1 tablet by mouth once daily Atorvastatin 80 mg tablet Discontinued 80 mg PO daily May 23, 2024 1:00am June 19, 2024 8:47am Start: 07-13-2023 End: 05-23-2024 take 1 tablet by mouth once daily Atorvastatin 10 mg tablet Discontinued 10 mg PO daily July 13, 2023 12:00am May 23, 2024 2:22pm cephalexin 500 mg oral capsule (2 sources) Cephalosporin Antibacterial Start: 03-03-2023 End: 03-10-2023 cephalexin (KEFLEX) capsule 500 mg ibuprofen 400 mg oral tablet (2 sources) Nonsteroidal Anti-inflammatory Drug Start: 09-07-2023 End: 10-02-2023 take 2 tablets by mouth once daily Ibuprofen 400 mg tablet Discontinued 800 mg PO DAILY September 07, 2023 12:00am October 02, 2023 1:29pm loratadine 10 mg oral tablet (4 sources) Start: 07-13-2023 End: 05-23-2024 take 1 tablet by mouth once daily Loratadine 10 mg tablet Discontinued 10 mg PO daily July 13, 2023 12:00am May 23, 2024 2:06pm phenazopyridine hydrochloride 95 mg oral tablet (2 sources) Start: 03-03-2023 End: 03-03-2023 phenazopyridine (PYRIDIUM) tablet 190 mg Start: 03-03-2023 End: 03-05-2023 take 1 tablet by mouth three times daily phenazopyridine (PYRIDIUM) 200 mg tablet Take 1 tablet (200 mg total) by mouth 3 (three) times a day for 2 days. 6 tablet 0 03/03/2023 03/05/2023 Active simvastatin 20 mg oral tablet (4 sources) HMG-CoA Reductase Inhibitor Start: 07-13-2023 End: 05-23-2024 take 1 tablet by mouth once daily Simvastatin 20 mg tablet Discontinued 20 mg PO DAILY July 13, 2023 12:00am May 23, 2024 2:06pm take 1 tablet by mouth at bedtim e simvastatin (ZOCOR) 10 mg tablet Take 1 tablet (10 mg total) by mouth at bedtime. Active Problems Active Problems Problem Classification Problem Date Documented Date Episodic/Chronic Allergic reactions (2 sources) Allergy status to sulfonamides status; Translations: [Latex allergy status] Onset: 08-14-2023 Episodic Coronary atherosclerosis and other heart disease (6 sources) Atherosclerotic heart disease of [place] coronary artery without angina pectoris; Translations: [Coronary arteriosclerosis] Onset: 05-23-2024 05-23-2024 Chronic Diabetes mellitus without complication (2 sources) Impaired fasting glucose; Translations: [Impaired fasting glucose] Onset: 10-17-2022 Episodic Disorders of lipid metabolism (7 sources) Hyperlipidemia, unspecified; Translations: [Pure hypercholesterolemia, unspecified] Onset: 05-23-2024 05-23-2024 Chronic Disorders of teeth and jaw (3 sources) Other specified disorders of teeth and supporting structures; Translations: [Other specified disorders of teeth and supporting structures] Onset: 08-14-2023 Episodic Esophageal disorders (2 sources) Gastroesophageal reflux disease; Translations: [Gastro-esophageal reflux disease without esophagitis] 07-13-2023 Chronic Comment on above: Patient has a histor y of chronic gastroesophageal reflux disease that is well-controlled on PPI therapy (omeprazole). In fact, she denies any significant breakthrough symptoms. She has never underwent investigative EGD for this diagnosis and wishes to be checked out for this issue at the same time as her colonoscopy, however, she is not necessarily inclined to pursue antireflux surgery at this time. 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 It is 1/3 size of normal kidney Headache; including migraine (1 source) Pain in face; Translations: [Face pain] 08-20-2023 Episodic Headache; including migraine (1 source) Headache; including migraine; Translations: [Headache, unspecified] Onset: 08-20-2023 Other aftercare (1 source) Other mcfp (current) drug therapy; Translations: [Other termite renewal inspector (current) drug therapy] Onset: 08-14-2023 Episodic Other screening for suspected conditions (not mental disorders or infectious disease) (6 sources) Encounter for screening mammogram for malignant neoplasm of breast; Translations: [Encounter for screening for diabetes mellitus] Onset: 10-23-2023 07-13-2023 Episodic Comment on above: Patient is a 52-year -old female who appears to be at average risk for colon cancer and denies any GI related symptoms. She has never underwent prior colon cancer screening and wishes to do so at this time. She wishes to know the necessity of this procedure and I inform her that she is 8 years past due given the recommended age of 44 to begin screening. When frame this way she states that she is willing to proceed as recommended. We discussed the need to completed bowel prep as well as the procedure and post procedure results reporting. Thyroid disorders (2 sources) Hypothyroidism, unspecified; Translations: [Hypothyroidism, unspecified] Onset: 01-19-2023 Chronic Past or Other Problems Problem Classification Problem Date Documented Da te Episodic/Chronic Urinary tract infections (2 sources) Acute cystitis; Translations: [Acute cystitis without hematuria] Onset: 03-03-2023 03-03-2023 Episodic Results Test Name Value Interpretation Reference Range Facility Breast imaging reportOrdered By: Melony Oscar on 06-20-2024 Study report [facility] Imaging Services [address] [place], [place] [id number] SCRN MAMM (CAD)W/SHANNAN NETTLES MR#: [id number] Acct: [id number] Name: TAMARA JOSE Rep #: [id number] : 1970 F 53 From: Heather Oscar MD PCP: ALEXA Bob, DIRECTOR RELIGIOUS EDUCATION-C Status: REG CLI Study:SCRN MAMM (CAD)W/SHANNAN BILAT Date of Exa m: 06/20/24 Exam# [id number] Ordering Dr: Blanquita Lim DIRECTOR RELIGIOUS EDUCATION-C EXAM: SCRN MAMM (CAD)W/SHANNAN BILAT 06/20/2024 CLINICAL HISTORY: F, Age 53 y/o , SCREENING. Family history of breast cancer in maternal grandmother in her 70s. TECHNIQUE: Bilateral screening digital breast tomosynthesis with 2D and 3D images. Computeraided detection. COMPARISON: 06/18/2023 FINDINGS: TISSUE DENSITY: The breast tissue is heterogenously dense, which may obscure small masses. The mammogram demonstrates that the patient has dense breasts. Supplemental screening with whole breast ultrasound or MRI may be considered for further evaluation. Bilateral Breast Mammographic Findings: No significant masses, calcifications or other abnormalities are identified. BI/SCRN MAMM (CAD)W/SHANNAN BILAT IMPRESSION: There is no mammographic evidence of malignancy in either breast. OVERALL FINAL ASSESSMENT: BIRADS 1 NEGATIVE. RECOMMENDATION: Routine annual follow-up in 1 Year A letter with findings and recommendations will be mailed to the patient. Reading Location: [facility] CC: [facility] DIRECTOR RELIGIOUS EDUCATION-C Blanquita Lim ~ Investment Officer: Signed [facility] SCRN MAMM (CAD)W/SHANNAN BILATo n 06-20-2024 SCRN MAMM (CAD)W/SHANNAN BILAT [facility] Imaging Services [address] [place] [id number] SCRN MAMM (CAD)W/SHANNAN BILAT MR#: [id number] Acct: [id number] Name: TAMARA JOSE Rep #: [id number] : 1970 F 53 From: Melony Oscar MD PCP: ALEXA Bob, DIRECTOR RELIGIOUS EDUCATION-C Status: REG CLI Study: SCRN MAMM (CAD)W/SHANNAN BILAT Date of Exam: 06/01 04/26 Exam# [id number] Ordering Dr: Blanquita Lim DIRECTOR RELIGIOUS EDUCATION-C EXAM: SCRN MAMM (CAD)W/SHANNAN BILAT 06/20/2024 CLINICAL HISTORY: F, Age 53 y/o , SCREENING. Family history of breast cancer in maternal grandmother in her 70s. TECHNIQUE: Bilateral screening digital breast tomosynthesis with 2D and 3D images. Computer aided detection. COMPARISON: 06/18/2023 FINDINGS: TISSUE DENSITY: The breast tissue is heterogenously dense, which may obscure small masses. The mammogram demonstrates that the patient has dense breasts. Supplemental screening with whole breast ultrasound or MRI may be considered for further evaluation. Bilateral Breast Mammographic Findings: No significant masses, calcifications or other abnormalities are identified. BI/SCRN MAMM (CAD)W/SHANNAN BILAT IMPRESSION: There is no mammographic evidence of malignancy in either breast. OVERALL FINAL ASSESSMENT: BIRADS 1 NEGATIVE. RECOMMENDATION: Routine annual follow-up in 1 Year A letter with findings and recommendations will be mailed to the patient. Reading Location: [id number] CC: ALEXA DIRECTOR RELIGIOUS EDUCATION-Bishnu Lim Investment Officer: Signed [facility] Cardiovascular stress test r eportOrdered By: Vijay Mcclelland on 06-17-2024 Study report [facility] Cardiovascular Services [address] [place] [address] MR#: [id number] Acct: [id number] Name: TAMARA JOSE Rep #: [id number] : 1970 53 From: Vijay jiménez MD Primary Care: ALEXA Bob, DIRECTOR RELIGIOUS EDUCATION-C Status: REG CLI Referring Dr: Javier Morales MD Sex: F C Stress Test Report Date: 06/13/2024 Procedure: Exercise tolerance test Indications: CAD Consent: Per the patient Procedure: The patient exercised on a Jean Carlos protocol for 6 minutes achieving a peak heart rate of 166 bpm (100% predicted maximal heart rate) with a peak blood pressure 162/90 mmHg and a peak MET capacity of approximately 7 MET's. The baseline ECG demonstrated normal sinus rhythm. The peak exercise ECG demonstrated no significant ischemic changes. [There were no cardiac dysrhythmias pretest, during exercise, or recovery]. The functional capacity was considered normal for age. The patient had no complaint of chest discomfort during exercise or recovery. The examination was discontinued secondary to achieving target heart rate. Impression: 1. Technically adequate (percent predicted maximal heart rate greater than 85%)exercise tolerance test 2. Stress test is negative for exercise-induced chest pain. 3. Stress test test is negative for exercise-induced EKG changes of ischemia. 4. Functional capacity is normal for age This note was generated with Filmasteration software. It may contain incorrectwords, spelling, and punctuation that were not noted in checking the note beforesigning. 06/17/241444 Date _ Vijay Mcclelland MD CC: ALEXA DIRECTOR RELIGIOUS EDUCATION-C Blanquita Lim; Dr. Javier Morales MD ~ Date Dictated: 06/17/241441 Date Transcribed: 06/17/241441 Investment Officer: NORA Londono [facility] Work Phone: Stress Reporton 06-17-[address] [facility] Cardiovascular Services [address] [place] [address] MR#: [id number] Acct: [id number] Name: TEMITAMARA Rep #: [id number] : 1970 53 From: Vijay Mcclelland MD Primary Care: ALEXA Bob, DIRECTOR RELIGIOUS EDUCATION-C Status: REG CLI Referring Dr: Javier Morales MD Sex: F C Stress Test Report Date: 06/13/2024 Procedure: Exercise tolerance test Indications: CAD Consent: Per the patient Procedure: The patient exercised on a Jean Carlos protocol for 6 minutes achieving a peak heart rate of 166 bpm (100% predicted maximal heart rate) with a peak blood pressure 162/90 mmHg and a peak MET capacity of approximately 7 MET's. The baseline ECG demonstrated normal sinus rhythm. The peak exercise ECG demonstrated no significant ischemic changes. [There were no cardiac dysrhythmias pretest, during exercise, or recovery]. The functional capacity was considered normal for age. The patient had no complaint of chest discomfort during exercise or recovery. The examination was discontinued secondary to achieving target heart rate. Impression: 1. Technically adequate (percent predicted maximal heart rate greater than 85%) exercise tolerance test 2. Stress test is negative for exercise-induced chest pain. 3. Stress test test is negative for exercise-induced EKG changes of ischemia. 4. Functional capacity is normal for age This note was generated with Filmasteration software. It may contain incorrect words, spelling, and punctuation that were not noted in checking the note before signing. 06/17/24 1445 Date Vijay Mcclelland MD CC: [facility] DIRECTOR RELIGIOUS EDUCATION-C Blanquita Lim; Dr. Javier Morales MD Date Dictated: 06/17/24 144 Date Transcribed: 06/17/241441 Investment Officer: NN Signed [facility] 12 Lead EKG performed by [facility] on 05-23-2024 12 Lead EKG performed by [address] [address] 12 Lead EKG performed by [facility] 05/23/24 1319 MR#: [id number] Acct: [id number] Name: TEMITAMARA Ivan Rep #: [id number] : 1970 53 From: Javier Morales MD Attending Dr: Dr. Javier Morales MD Status: DE P AMB Ordering Dr: Javier Morales MD Date: 05/23/24 Location: [facility] Sex: F C Admitted: BMS/12 Lead EKG performed by [facility] ECG Report Interpretation --Sinus Rhythm WITHIN NORMAL LIMITSElectronically signed on 05/23/2024 at 14:[address] Javier Morales [employer] Version [id number] 05/23/24 1501 Date Javier Morales MD CC: ALEXA Lim Date Dictated: 05/23/241318 Date Transcribed: 05/23/241318 Investment Officer: Signed [facility] Cardiology Visit Reporton Cardiology Visit Report [facility] [address] [place] [address] OFFICE VISIT Date of Service: 05/23/24 MR#: [id number] Acct: [id number] Name: TAMARA OJSE Rep #: [id number] : 1970 Provider: Dr. Javier krueger MD Age/Sex: 53/F Location[place] [facility] Status: Signed with Addenda ADDENDUM by Dr. Javier Morales MD on 05/23/24 at 1343 Addendum Addendum Details:: ECG in office today showed normal sinus rhythm and is within normal limits. Heart rate was 75. Assessment and Plan Assessment and Plan (1) Hyperlipidemia: Status: Acute Qualifiers: Hyperlipidemia type: pure hypercholesterolemia Qualified Code(s): E78.00 - Pure hypercholesterolemia, unspecified (2) CAD (coronary artery disease): Status: Acute Qualifiers: Coronary Disease-Associated Artery/Lesion type: [place] artery [place] vs. transplanted heart: [place] heart Associated angina: without angina Qualified Code(s): I25.10 - Atherosclerotic heart disease of [place] coronary artery without angina pectoris (3) Hypertension: Status: Chronic Qualifiers: Hypertension type: primary hypertension Qualified Code(s): I10 - Essential (primary) hypertension Comment: ON MEDS Orders: Orders 12 Lead EKG performed by [facility] Today E78.5 - Hyperlipidemia, unspecified Lipid Profile 3 Months E78.5 - Hyperlipidemia, unspecified Liver Profile 3 Months E78.5 - Hyperlipidemia, unspecified Stress Test Regular 2 Weeks E78.5 - Hyperlipidemia, unspecified, I25.10 - Atherosclerotic heart disease of [place] coronary artery without angina pectoris Medications: New atorvastatin 80 mg PO QDAY 30 tabs 3RF Discontinued atorvastatin Discontinued Reason: Order Changed 10 mg PO QDAY Plan Details Follow Up: 3 Years (As needed) 05/23/24 1343 Date Javier Morales MD cc: [facility] JESSICA Lim * Signed HPI HPI History of Present Illness Details: Patient is a 53-year-old white female that comes in today for new patient visit. Patient was referred for elevated calcium scoring. 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 She denies any lightheaded dizzy spells denies any chest tightness or squeezing denies any dyspnea on exertion or shortness of breath. She really has no symptoms at all. The patient has a very strong family history of multiple family members before age 55 with coronary events. She does have a history of hypertension which is treated and hyperlipidemia which is treated. She has never smoked and she is not diabetic. The patient had calcium scoring done March 2024 and her total score came out 135 87 in the left anterior descending and 48 in the left main. She had a remote treadmill stress test where she did 10.3 METS in May 2016 she had no chest symptoms and no EKG changes. There were some occasional PVCs in recovery. It was read as a negative stress test. Intake Vital Signs 10/11/23 08:40 05/23/24 13:02 Height 5 ft 8 in 5 ft 8 in Weight: 202 lb BMI 30.7 BP 121/82 H Blood Pressure Location Lt brachial Position Sitting Respiration 18 Pulse 70 Pulse Source Monitor Pulse Oximetry (%) 98 Oxygen Delivery Method room air Intake Visit Reasons: Moderate Plaque Formation (Raphael) Supervisor Files Required: No Accompanied by: Self Is patient in pain?: No Allergies bee venom protein (honey bee) Allergy (Severe, Verified 05/23/24 13:02) Anaphylaxis Sulfa (Sulfonamide Antibiotics) Allergy (Severe, Verified 05/23/24 13:02) Anaphylaxis Medications ???Medication ???Instructions ???Recorded ???Confirmed ???Type cholecalciferol (vitamin D3) 50 100 mcg PO QDAY 07/13/23 05/23/24 History mcg (2,000 unit) capsule (Vitamin D3) lisinopril 40 mg tablet 40 mg PO QDAY 07/13/23 05/23/24 Hi story omeprazole 20 mg capsule,delayed 20 mg PO QDAY 07/13/23 05/23/24 Hi story release vitamin E (dl, acetate) 180 mg 180 mg PO QDAY 07/13/23 05/23/24 H istory (400 unit) capsule aspirin 81 mg chewable tablet 1 tab PO DAILY 10/02/23 05/23/24 H istory (Nuvia Chewable Low Dose Aspirin) cranberry 500 mg capsule 500 mg PO DAILY 10/02/23 05/23/24 History fluticasone propionate 50 2 spray intranasal DAILY 04/29/24 05/23/24 History mcg/actuation nasal spray,suspension amlodipine 10 mg tablet 10 mg PO QDAY 05/23/24 05/23/24 Hi story atorvastatin 80 mg tablet 80 mg PO QDAY #30 tabs 05/23/24 Rx Have you fallen in the past year?: No [facility] Medical History Hyperlipidemia Wears hearing aid Post-menopausal History of steroid therapy Gastric reflux Non-smoker History of edema History of stress test Hypertension History (more content not included)... Normal [facility] Coronary Angiography CTon Coronary Angiography CT [facility] Imaging Services [address] [place] [address] 03/24/24 0810 MR#: [id number] Acct: [id number] Name: TAMARA JOSE Ivan Rep #: [id number] : 1970 53 From: Jhon Caldwell MD PCP: Blanquita Lim [facility], DIRECTOR RELIGIOUS EDUCATION-C Status:REG CLI Y Location: CT Calcium Scoring Date of Study:: 03/24/24 Indications Indications: Hypertension hyperlipidemia Coronary Calcium Scoring: High-resolution Computed Tomographic imaging of the chest was performed on [03/24/2024], with particular attention paid to the coronary arteries. Images from the examination were analyzed for the presence and extent of coronary artery calcification , using coronary calcium quantification software. The patient tolerated the procedure well and there were no complications. The results of the coronary calcification analysis are provided below. Findings Coronary Artery Left Main (LM): 48 Left Anterior Descending (LAD): 87 Left Circumflex (LCX): 0 Right Coronary Artery (RCA): 0 Total Agatston Score: 135 Percentile Ranking: Greater than 90th percentile Calcium Scoring Interpretation: Different methods to categorize the overall amount of coronary plaque. Overall amount CAC SIS Visual of coronary plaque P1 Mild -100 <2 1-2 vessels with mild amount of plaque P2 Moderate 101-300 3-4 1-2 vessels with moderate amount, 3 vessels with mild amount of plaque P3 Severe 301-999 5-7 3 vessels with moderate amount, 1 vessel with severe amount of plaque P4 Extensive >1000 >8 2-3 vessels with severe amount of plaque Calcium Score: Moderate: 1-2 vessels w/moderate amt, 3 vessels w/mild amt of plaque Conclusion: Moderate atherosclerotic plaquing noted in 1-2 vessels. 03/24/24811 Date [facility] Signature (if applicable): Date CC: [facility] DIRECTOR RELIGIOUS EDUCATION-C Blanquita Lim; Dr. Jhon Caldwell MD Signed Normal [facility] Limited Chest CT Cardiac Onl yon 03-24-[address] Cardiac Only [facility] Imaging Services [address] [place] [id number] Cardiac Only MR#: [id number] Acct: [id number] Name: TAMARA JOSE Rep #: [id number] : 1970 F 53 From: Misha whitten MD PCP: ALEXA Bob, DIRECTOR RELIGIOUS EDUCATION-C Status: [facility] Study: Limited Chest CT Cardiac Only Date of Exam: Exam# [id number] Ordering Dr: Blanquita Lim DIRECTOR RELIGIOUS EDUCATION-C [id number] STUDY: CT CHEST WITHOUT CONTRAST REASON FOR EXAM: Female, 53 years old. HYPERTENSION RADIATION DOSAGE (If Supplied By Facility): CTDIvol = ( 12.19 ) mGy, DLP = ( 195.04 ) mGycm TECHNIQUE: Transaxial imaging was performed without the administration of intravenous contrast material. Cardiac over read examination. Individualized dose optimization techniques were used for this CT. COMPARISON: No relevant priors. FINDINGS: CHEST Increased linear markings at the lung bases slightly worse on the right side suggestive of scarring. Calcified granuloma in the superior aspect of the left lower lobe. Focal right calcified pleural plaque There are calcifications of the coronary arteries. Normal mediastinum. Normal hilar regions. Normal unenhanced pulmonary arteries. Normal aorta arch and descending thoracic aorta. There are degenerative changes of the thoracic spine. There is no demonstrated abnormality of the visualized upper abdomen. CT/Limited Chest CT Cardiac Only IMPRESSION: Findings suggestive of bibasilar scarring and calcified granuloma in the superior aspect of the left lower lobe. Coronary artery calcification. Electronically Signed: Misha Machado MD at 12:20 EST Reading Location ID and State: [address] [place] [address] , Service support , CC: [facility] JESSICA Lim Investment Officer: Signed [facility] PAP IG w/Reflex HPV GDLNon 1 Path.prov.IDC-9 Comment Normal [facility] Comment on above: Order Comment: Speci men Comment: Source.............Cervix Specimen Comment: Other..............Post Menopausal;Other Specimen Comment: No. of containers..01 ThinPrep Vial Performed By: #### L [phone] #### [facility] [place], [address] Colonoscopy Reporton 024 Colonoscopy Report [facility] Medical Records Department [address] [place] [address] Colonoscopy Report MR#: [id number] Acct: [id number] Name: TAMARA JOSE Rep #: [id number] : 1970 53 From: Javier Jones MD PCP: [facility] Status:REG [facility] Patient Name: Tamara Jose Procedure Date: 10/11/2023 10:17 AM Date of : 1970 Age: 53 Procedure: Colonoscopy Indications: Screening for colorectal malignant neoplasm Providers: Javier Jones MD Referring MD: Ashley Mckeon [facility] Medicines: See the Anesthesia note for documentation of the administered medications Patient Profile: Refer to note in patient chart for documentation of history and physical. Last Colonoscopy: none. The patient's first colonoscopy is today. Complications: No immediate complications. Estimated blood loss: Minimal. Procedure: Pre-Anesthesia Assessment: - The heart rate, respiratory rate, oxygen saturations, blood pressure, adequacy of pulmonary ventilation, and response to care were monitored throughout the procedure. - The heart rate, respiratory rate, oxygen saturations, blood pressure, adequacy of pulmonary ventilation, and response to care were monitored throughout the procedure. After I obtained informed consent, the scope was passed under direct vision. Throughout the procedure, the patient's blood pressure, pulse, and oxygen saturations were monitored continuously. The colonoscope was introduced through the anus and advanced to the cecum, identified by palpation. The colonoscopy was somewhat difficult due to significant looping. Successful completion of the procedure was aided by changing the patient to a supine position and straightening and shortening the scope to obtain bowel loop reduction. The patient tolerated the procedure fairly well. The quality of the bowel preparation was adequate to identify polyps greater than 5 mm in size. Scope In: 10:19:10 AM Scope Withdrawal Time 0 hours 17 minutes 14 seconds Scope Out: 10:44:35 AM Total Procedure Duration Time 0 hours 25 minutes 25 seconds Findings: The perianal and digital rectal examinations were normal. Pertinent negatives include normal sphincter tone. An area of mildly congested mucosa was found in the rectum. Biopsies were taken with a cold forceps for histology. Estimated blood loss: 3 mL requiring treatment with placement of hemostatic clip(s). A 5 mm, non-bleeding polyp was found in the sigmoid colon. The polyp was pedunculated. The polyp was removed with a hot snare. Resection and retrieval were complete. Estimated blood loss was minimal. Impression: - Congested mucosa in the rectum. Biopsied. - One 5 mm, non-bleeding polyp in the sigmoid colon, removed with a hot snare. Resected and retrieved. Recommendation: - Discharge patient to home (via wheelchair). - Resume previous diet today. - No aspirin, ibuprofen, naproxen, or other non-steroidal anti-inflammatory drugs for 2 days after biopsy. - Await pathology results. - Repeat colonoscopy date to be determined after pending pathology results are reviewed for surveillance based on pathology results. - Telephone my office for pathology results in 1 week. Procedure Code(s): --- Professional --- 87134, Colonoscopy, flexible; with removal of tumor(s), polyp(s), or other lesion(s) by snare technique 88673, 59, Colonoscopy, flexible; with biopsy, single or multiple Diagnosis Code(s): --- Professional --- Z12.11, Encounter for screening for malignant neoplasm of colon K62.89, Other specified diseases of anus and rectum D12.5, Benign neoplasm of sigmoid colon CPT copyright 2021 [employer]. All rights reserved. The codes documented in this report are preliminary and upon remote medical coder review may be revised to meet current compliance requirements. Javier Jones MD 10/11/2023 11:02:35 AM This report has been signed electronically. Number of Addenda: 0 Note Initiated On: 10/11/2023 10:17 AM 10/11/23 1102 Date Javier Jones MD Cosigner Signature: Date (if indicated) CC: Dr. Javier Jones MD; [facility] Date Dictated: 10/11/23 1017 Date Transcribed: Investment Officer: MARIE Signed [facility] EGD Reporton 10-11-2023 EGD Report [facility] Medical Records Department [address] [place] [address] EGD Report MR#: [id number] Acct: [id number] Name: TAMARA JOSE Rep #: [id number] : 1970 53 From: Javier Jones MD PCP: [facility] Status:REG [facility] Patient Name: Tamara Jose Procedure Date: 10/11/2023 9:41 AM Date of : 1970 Age: 53 Procedure: Upper GI endoscopy Indications: Gastro-esophageal reflux disease Providers: Javier Jones MD Referring MD: Ashley Mckeon [facility] Medicines: See the Anesthesia note for documentation of the administered medications Patient Profile: Refer to note in patient chart for documentation of history and physical. Complications: No immediate complications. Estimated blood loss: Minimal. Procedure: Pre-Anesthesia Assessment: - The heart rate, respiratory rate, oxygen saturations, blood pressure, adequacy of pulmonary ventilation, and response to care were monitored throughout the procedure. After obtaining informed consent, the endoscope was passed under direct vision. Throughout the procedure, the patient's blood pressure, pulse, and oxygen saturations were monitored continuously. The colonoscope was introduced through the mouth, and advanced to the second part of duodenum. The upper GI endoscopy was somewhat difficult due to the patient's oxygen desaturation. Successful completion of the procedure was aided by withdrawing and reinserting the scope, performing chin lift, administering oxygen and treating with ventilation. The patient tolerated the procedure fairly well. Scope In: 9:57:08 AM Scope Out: 10:17:41 AM Total Procedure Duration Time 0 hours 20 minutes 33 seconds Findings: No gross lesions were noted in the duodenal bulb, in the first portion of the duodenum and in the second portion of the duodenum. No biopsies or other specimens were collected for this exam. Striped moderately erythematous mucosa without bleeding was found in the gastric body and in the gastric antrum. Biopsies were taken with a cold forceps for histology. Estimated blood loss was minimal. Localized granular mucosa was found in the gastric fundus. Biopsies were taken with a cold forceps for histology. Estimated blood loss was minimal. A small hiatal hernia was present. The Z-line was irregular and was found 38 cm from the incisors. Biopsies were taken with a cold forceps for histology. Estimated blood loss was minimal. A few 2 to 4 mm mucosal nodules with a localized distribution were found in the middle third of the esophagus. Biopsies were taken with a cold forceps for histology. Estimated blood loss was minimal. The exam was otherwise without abnormality. Impression: - No gross lesions in the duodenal bulb, in the first portion of the duodenum and in the second portion of the duodenum. No specimens collected. - Erythematous mucosa in the gastric body and antrum. Biopsied. - Granular gastric mucosa. Biopsied. - Small hiatal hernia. - Z-line irregular, 38 cm from the incisors. Biopsied. - Mucosal nodule found in the esophagus. Biopsied. - The examination was otherwise normal. Recommendation: - Discharge patient to home (via wheelchair). - Resume previous diet today. - No aspirin, ibuprofen, naproxen, or other non-steroidal anti-inflammatory drugs for 2 days after biopsy. - Continue present medications. - Await pathology results. - Telephone my office for pathology results in 1 week. Procedure Code(s): --- Professional --- 17944, Esophagogastroduodenosco py, flexible, transoral; with biopsy, single or multiple Diagnosis Code(s): --- Professional --- K31.89, Other diseases of stomach and duodenum K44.9, Diaphragmatic hernia without obstruction or gangrene K22.89, Other specified disease of esophagus K21.9, Gastro-esophageal reflux disease without esophagitis CPT copyright 2021 [employer]. All rights reserved. The codes documented in this report are preliminary and upon remote medical coder review may be revised to meet current compliance requirements. Javier Jones MD 10/11/2023 10:56:12 AM This report has been signed electronically. Number of Addenda: 0 Note Initiated On: 10/11/2023 9:41 AM 10/11/23 1056 Date Javier Jones MD Cosigner Signature: Date (if indicated) CC: Dr. Javier Jones MD; [facility] Date Dictated: 10/11/23940 Date Transcribed: Investment Officer: MARIE Signed [facility] H Pylori (initial)on 024 H Pylori (initial) ---- Patient Age/Sex Location Account Attending Physician TAMARA JOSE 53/F EN [id number] Dr. Javier Jones MD Specimen: [id number] Received: 10/11/23-135 Status: FIOR To Num: [id number] Spec Type: IMMUNO Subm Dr: Dr. Javier Jones MD PHYSICIAN INSTITUTION [place] [address] SPECIMEN INFORMATION: Tissue Source: A- Antrum biopsy Clinical Info: GERD, screening for colon cancer Specimen Number: [id number] CPT code: 04691 METHODOLOGY: Deparaffinized sections of prefer/formalin-fixed tissue or PAP/DQ stained slides are incubated with monoclonal/polyclonal antibodies/oligonucleoti de probes. Localization is made via biotin free immunoperoxidase method. Appropriate controls are performed and reacted as expected. Results on target cell population are indicated in the following table: RESULTS: ANTIBODY / CLONE RESULT Block A H Pylori (polyclonal) negative These tests were developed and their performance characteristics determined by [facility]. They may not have been cleared or approved by the U.S. Food and Drug Administration. The FDA has determined that such clearance or approval is not necessary. The above immunohistochemical/dual ADOLFO markers are ordered and reviewed by the Pathologist. INTERPRETATION: A. Antrum, biopsy: Negative for Helicobacter pylori organisms. LOIS/ 10/12/2023 Signed (signature on file) Dr. Mk Frias MD 10/12/23 1256 Normal [facility] Comment on above: Performed By: #### P H.PYLORI #### [facility] [address] [facility] [place], [address] MR/POSTOP.Geno 10-11-2023 MR/POSTOP.[facility] Medical Records Department [address] [place] [address] Anesthesia Postop Eval I 10/11/23 1042 MR#: [id number] Acct: [id number] Name: TAMARA JOSE Rep #: [id number] : 1970 53 From: Geoff Joyner MD PCP: [facility] Status:REG SDC Y Race: C Location: [place] [address] Anesthesia: Postop Eval I Current Vital Signs Temperature: 98.6 F Pulse Rate: 70 Blood Pressure: 118/85 Respiratory Rate: 14 Pulse Ox: 100 Assessment Airway patent: Yes Spontaneous unlabored respirations: Yes nausea: No Vomiting: No Anesthesia Complication: No Fluid Hydration Crystalloid volume administer (ml): 1 Total IV fluid infused: 1 Progress Note Anesthesia document: Postop Eval 1 completed: No 10/11/23 1044 Date Geoff Oviedo Signature: Date CC: Signed [facility] MR/[id number] 10-11-2023 MR/POSTOPAN2 [facility] Medical Records Department [address] [place] [address] Anesthesia Postop Eval II 10/11/23 1058 MR#: [id number] Acct: [id number] Name: TAMARA JOSE Rep #: [id number] : 1970 53 From: Mulugeta Cameron MD PCP: [facility] Status:REG SDC Y Race: C Location: [place] [address] Anesthesia Postop Eval I Sum Postop Eval Completion status Anesthesia document: Postop Eval 1 completed: No Anesthesia Postop Eval I Summary Anesthesia Postop Eval I Summary: Anesthesia Postop Eval I: Assessment Summary Airway patent Yes 10/11/23 10:42 Spontaneous unlabored Yes 10/11/23 10:42 respirations Mental status nausea No 10/11/23 10:42 Vomiting No 10/11/23 10:42 Anesthesia Postop Eval I: Fluid Summary Crystalloid volume administer 1 10/11/23 10:42 (ml) Colloids volume administered ( ml) Blood Product volume administered (ml) Total IV fluid infused 1 10/11/23 10:42 Anesthesia Postop Eval I: Summary Notes Anesthesia Complication No 10/11/23 10:42 Anesthesia Complication Comment: Post-operative progress note Anesthesia: Postop Eval II Evaluation Mental status: Awake Pain Level: 0 nausea: No Vomiting: No 10/11/23 1059 Date [facility] Signature: Date CC: Signed [facility] Surgery Specimen Level Michelle 10-11-2023 Surgery Specimen Level IV Patient Age/Sex Location Account Attending Physician TAMARA JOSE 53/F EN [id number] Dr. Javier Jones MD Specimen: [id number] Received: 10/11/23-1323 Status: FIOR To Num: [id number] Spec Type: COLON BX Subm Dr: Dr. Javier Jones MD HEADER OPERATION: Colonoscopy, polypectomy, biopsy, hemostasis clip EGD PRE-OP DIAGNOSIS: GERD, screening for colon cancer TISSUE SUBMITTED: A- Antral biopsy, B- Fundal mucosal biopsy, C- Gastroesophageal junction biopsy, D- Mid esophagus, E- Sigmoid polyp, F- Rectal mucosal biopsy MICROSCOPIC DIAGNOSIS A. Antral biopsy: Mild gastritis. See microscopic description and comment. B. Fundal mucosa, biopsy: Fragments of gastric mucosa with mild chronic inflammation and focal changes suggestive of fundic gland polyp. C. Gastroesophageal junction, biopsy: A fragment of gastroesophageal mucosa with chronic inflammation. Intestinal metaplasia (goblet cell metaplasia) not identified. See comment. D. Mid esophagus, biopsy: Fragments of squamous mucosa with mild chronic inflammation. E. Sigmoid colon polyp, polypectomy: Fragments of tubular adenoma. F. Rectal mucosa, biopsy: A fragment of colonic mucosa, no pathologic diagnosis. SJ/mr 10/12/2023 COMMENT A. The results of immunohistochemistry for Helicobacter pylori will be reported separately ([id number]). C. This specimen predominantly consists of gastric mucosa. Alcian blue/PAS stain with matched control is used in the evaluation of the specimen. MICROSCOPIC DESCRIPTION Slides are reviewed. A. The specimen shows fragments of gastric mucosa with chronic inflammatory cell infiltrates in the lamina propria consisting of lymphocytes and plasma cells, consistent with mild chronic gastritis. Patient Age/Sex Location Account Attending Physician TAMARA JOSE 53/F EN [id number] Dr. Javier Jones MD GROSS DESCRIPTION A. Received in fixative is one container labeled with the patient's name and designated Antral biopsy. The specimen consists of two irregular fragments of light youngblood soft tissue that in aggregate measure 0.5 x 0.3 x 0.1 cm. The specimen is totally submitted in one cassette. B. Received in fixative is one container labeled with the patient's name and designated Fundal mucosal biopsy. The specimen consists of two irregular fragments of light youngblood soft tissue that measures 0.5 x 0.3 x 0.1 cm. The specimen is totally submitted in one cassette. C. Received in fixative is one container labeled with the patient's name and designated GE junction biopsy. The specimen consists of one irregular fragment of light youngblood soft tissue that measures 0.3 x 0.3 x 0.1 cm. The specimen is totally submitted in one cassette. D. Received in fixative is one container labeled with the patient's name and designated Mid esophagus biopsy. The specimen consists of multiple irregular fragments of light youngblood soft tissue that in aggregate measure 0.6 x 0.3 x 0.1 cm. The specimen is totally submitted in one cassette. E. Received in fixative is one container labeled with the patient's name and designated Sigmoid polyp. The specimen consists of multiple irregular fragments of light youngblood soft tissue that in aggregate measure 1.0 x 0.3 x 0.1 cm. The specimen is totally submitted in one cassette. F. Received in fixative is one container labeled with the patient's name and designated Rectal mucosal biopsy. The specimen consists of one irregular fragment of light youngblood soft tissue that measures 0.3 x 0.3 x 0.1 cm. The specimen is totally submitted in one cassette. Gwen 10/11/2023 TC:1 CPT:10101o6,54595 Patient Age/Sex Location Account Attending Physician TAMARA JOSE 53/F EN [id number] Dr. Javier Jones MD Signed (signature on file) Dr. Mk Frias MD 10/12/23 1227 [facility] Comment on above: Performed By: #### P SUIV #### [facility] [address] [place], [address] Surgery Visit Reporton 07-12 Surgery Visit Report [facility] [address] [place] [address] OFFICE VISIT Date of Service: 07/13/23 MR#: [id number] Acct: [id number] Name: TAMARA JOSE Rep #: [id number] : 1970 Provider: Dr. Javier obregon MD Age/Sex: 52/F Location: [facility] Status: Signed Intake Vital Signs 07/13/23 08:34 Height 5 ft 9 in Weight: 199 lb 6 oz BMI 29.4 BP 120/82 H Blood Pressure Location Rt brachial Position Sitting Respiration 18 Pulse 69 Pulse Source Monitor Temp 97.2 F L Temp Source Temporal Pulse Oximetry (%) 98 Oxygen Delivery Method room air Intake Visit Reasons: GERD , SCREENING SCOPE Chief Complaint: GERD screening scope Is patient in pain?: No Allergies bee venom protein (honey bee) Allergy (Severe, Verified 07/13/23 08:35) Anaphylaxis Sulfa (Sulfonamide Antibiotics) Allergy (Severe, Verified 07/13/23 08:35) Anaphylaxis Medications amlodipine 5 mg tablet 5 mg PO QDAY 07/13/23 [History Confirmed 07/13/23] atorvastatin 10 mg tablet 10 mg PO QDAY 07/13/23 [History Confirmed 07/13/23] cholecalciferol (vitamin D3) 50 mcg (2,000 unit) capsule (Vitamin D3) 100 mcg PO QDAY 07/13/23 [History Confirmed 07/13/23] fluticasone propionate 50 mcg/actuation nasal spray,suspension spray intranasal 07/13/23 [History Confirmed 07/13/23] lisinopril 40 mg tablet 40 mg PO QDAY 07/13/23 [History Confirmed 07/13/23] loratadine 10 mg tablet 10 mg PO QDAY 07/13/23 [History Confirmed 07/13/23] omeprazole 20 mg capsule,delayed release 20 mg PO QDAY 07/13/23 [History Confirmed 07/13/23] simvastatin 20 mg tablet 20 mg PO QPM hyperlipidemia 07/13/23 [History Confirmed 07/13/23] vitamin E (dl, acetate) 180 mg (400 unit) capsule 180 mg PO QDAY 07/13/23 [History Confirmed 07/13/23] [facility] Medical History (Updated 07/13/23 @ 20:[address] Javier Jones MD) delivery delivered Family History (Updated 07/13/23 @ 08:34 by Lisa Fry LPN) Grandmother Breast cancer Father Heart disease Myocardial infarction Social History (Updated 07/13/23 @ 08:34 by Lisa Fry LPN) Smoking Status: Never smoker alcohol intake: never substance use type: does not use HPI HPI HPI: Patient is a 52-year-old female who presents for further evaluation of gastroesophageal reflux disease as well as scheduling screening colonoscopy. They are referred for surgical consultation fr lawrence Lim NP of the [facility]. Patient states that she was first diagnosed with gastroesophageal reflux disease approximately 5 years ago when she was begun on omeprazole. She shares that unfortunately she lost her insurance and was unaware of eiqi-[id number] PPI therapy so she effectively went off of omeprazole January and March 2023. She shares she had many symptoms during this time and was only later in this interval made aware of the vhbw-nch-nerrfbv option. She notes that her symptoms are very well-controlled on omeprazole and that she experiences No breakthrough symptoms even when eating spicy foods. She denies any prior history of EGD. She does confirm that her symptoms are those of reflux rather than heartburn when they are experienced and she describes them as burning like a shot of fireball. She denies any frequent nighttime awakenings. She states she takes dinner between 5 and 7 in the evening and is in bed by 11. She reports she is unable to prop her head because she gets a stiff neck. Patient has not had prior colonoscopy nor any other screening for colon cancer. They describe their bowel habits as normal. They have approximately 2 bowel movements per day and spend roughly a few minutes on the toilet without significant straining. They have not noticed recent bleeding or dark stools. They do not regularly take fiber supplements. Patient has no family history of colon cancer, inflammatory bowel disease, or diverticulitis. The patient's weight is stable. The patient is not prescribed anticoagulants/blood thinners. Relevant prior abdominal surgical history includes: section ROS General General: No weight change, appetite, fatigue, colon cancer, breast cancer or weakness HEENT HEENT: No difficulty swallowing, eye injury, eye surgery, swollen glands or hoarseness Endo Endocrine: No thyroid disease, diabetes mellitus, thyroid cancer, Hair loss, heat intolerance or cold intolerance Skin Skin: No rash or changing moles Musc Musculoskeletal: No back problems, arthritis, rheumatoid arthritis, gout or joint pain Cardio Cardiovascular: Yes high blood pressure; No murmur, pacemaker, heart disease, atrial fibrillation, heart attack, heart stent, palpitations, shortness of breat with exertion or chest pain Psych Psychiatric: Yes anxiety; No depression or hearing voices R (more content not included)... Normal [facility] Microscopic method Nom (U)Or dered By: Zoraida Gaspar on 03-03-2023 Bacteria LM.HPF (Urine sed) [#/Area] Few Abnormal None /HPF [facility] Interpretation and review of laboratory results [facility] Leukocyte clumps LM.HPF (Urine sed) [#/Area] Few Abnormal None /HPF [facility] RBC LM.HPF (Urine sed) [#/Area] 51-100 Abnormal [facility] WBC LM.HPF (Urine sed) [#/Area] 51-100 Abnormal [facility] Urinalysis dipstick W Reflex Microscopic panel (U)on 03-03-2023 Bacteria, Urine Few Abnormal None [facility] Comment on above: Performed By: #### 5 7020-0 #### [facility] LAB [address] [place] [address] RBC, Urine 51-100 Abnormal 0-5 [facility] Comment on above: Performed By: #### 5 7020-0 #### [facility] ([facility]) LAB [address] [place] [address] WBC Clumps, Urine Few Abnormal None [facility] Comment on above: Performed By: #### 5 7020-0 #### [facility] ([facility]) LAB [address] [place] [address] WBC, Urine 51-100 Abnormal 0-5 [facility] Comment on above: Performed By: #### 5 7020-0 #### JIMMY RODRIGUE[facility] ([facility]) LAB [address] [place] [address] Bilirubin Ql (U) Negative Negative mg/dL [facility] Clarity (U) Hazy Abnormal Clear [facility] Color (U) Light Yellow Abnormal Yellow [facility] Glucose Ql (U) Normal Normal mg/dL [facility] Hemoglobin Ql (U) 3+ Abnormal Negative eryth/mcL [facility] Interpretation and review of laboratory results Abnormal [facility] Ketones (U) [Mass/Vol] Negative Negative mg/dL [facility] Leukocyte esterase Test strip Ql (U) 500 Abnormal Negative WBCs/mcL [facility] Nitrite Ql (U) Negative Negative [facility] pH (U) 7.5 [pH] 5.0 - 8.0 pH [facility] Protein (U) [Mass/Vol] 30 mg/dL Abnormal Negative [facility] Specific gravity (U) [Rel density] 1.010 1.002 - 1.030 [facility] Urobilinogen (U) [Mass/Vol] Normal Normal mg/dL [facility] CMP with eGFRon 01-19-2023 AGE 52 years Normal [facility] Comment on above: Performed By: #### 2 68652 #### [facility],[address] [place] [address]3053 Albumin [Mass/Vol] 3.6 g/dL Normal 3.4 - 5.0 [facility] Comment on above: Performed By: #### 2 84688 #### [facility],[address] [place] [address] 58249 Albumin/Globulin [Mass ratio] 1.0 {ratio} Normal 0.9 - 1.6 [facility] Comment on above: Performed By: #### 2 12164 #### [facility],[address] [place] [address] 45842 ALK PHOS 96 U/L Normal 46 - 116 [facility] Comment on above: Performed By: #### 2 19839 #### [facility],[address] [place] [address] 54465 ALT [Catalytic activity/Vol] 54 U/L Normal 14 - 59 [facility] Comment on above: Performed By: #### 2 28573 #### [facility],[address] [place] [address] 72040 Anion gap [Moles/Vol] 13 mmol/L Normal 10 - 20 [facility] Comment on above: Performed By: #### 2 27043 #### [facility],[address] [place] [address] 04906 AST [Catalytic activity/Vol] 38 U/L Normal 13 - 39 [facility] Comment on above: Performed By: #### 2 68103 #### [facility],[address] [place] [address] 06479 B/C RATIO 12 ratio Normal 0 - 30 [facility] Comment on above: Performed By: #### 2 07502 #### [facility],[address] [place] [address] 05627 Bilirubin [Mass/Vol] 0.3 mg/dL Normal 0.2 - 1.0 [facility] Comment on above: Performed By: #### 2 91141 #### [facility],[address] [place] [address] 86830 Calcium [Mass/Vol] 8.8 mg/dL Normal 8.5 - 10.1 [facility] Comment on above: Performed By: #### 2 17691 #### [facility],[address] [place] [address] 98905 Chloride [Moles/Vol] 104 mmol/L Normal 98 - 107 [facility] Comment on above: Performed By: #### 2 36921 #### [facility],[address] [place] [address] 06243 CMP with eGFR Normal [facility] Comment on above: Result Comment: COMP REHENSIVE METABOLIC PANEL Performed By: #### 2 01164 #### [facility],[address] [place] [address] 92144 CO2 [Moles/Vol] 27.9 mmol/L Normal 21.0 - 32.0 [facility] Comment on above: Performed By: #### 2 03194 #### [facility],[address] [place] [address] 97544 Creatinine [Mass/Vol] 0.75 mg/dL Normal 0.55 - 1.02 [facility] Comment on above: Performed By: #### 2 14026 #### [facility],[address] [place] [address] 42844 GFR/1.73 sq M.predicted among non-blacks MDRD (S/P/Bld) [Vol rate/Area] mL/min/{1.73_m2} Normal 60 - 999 [facility] Comment on above: Performed By: #### 2 96736 #### [facility],[address] [place], [place] [address] Result Comment: ACCO RDING TO THE NATIONAL KIDNEY DISEASE EDUCATION PROGRAM(NKDE), A NORMAL eGFR IS A VALUE GREATER THAN OR EQUAL TO 60 ML/MIN/1.73 SQ METERS. CHRONIC KIDNEY DISEASE: <60mL/MIN/1.73 SQ METERS KIDNEY FAILURE: <15mL/MIN/1.73 SQ METERS THIS TEST SHOULD ONLY BE USED FOR PATIENTS 18 YEARS OF AGE AND OLDER. Globulin (S) [Mass/Vol] 3.5 g/dL Normal 1.5 - 3.8 [facility] Comment on above: Performed By: #### 2 03443 #### [facility],[address] [place] [address] 63476 Glucose [Mass/Vol] 147 mg/dL High 74 - 106 [facility] Comment on above: Performed By: #### 2 91883 #### [facility],[address] [place] [address] 70616 Potassium [Moles/Vol] 3.7 mmol/L Normal 3.5 - 5.1 [facility] Comment on above: Performed By: #### 2 00043 #### [facility],[address] [place] [address] 31549 Protein [Mass/Vol] 7.1 g/dL Normal 6.4 - 8.2 [facility] Comment on above: Performed By: #### 2 52839 #### [facility],[address] [place] [address] 68543 Sodium [Moles/Vol] 141 mmol/L Normal 136 - 145 [facility] Comment on above: Performed By: #### 2 00507 #### [facility],[address] [place] [address] 84125 Urea nitrogen [Mass/Vol] 9 mg/dL Normal 7 - 18 [facility] Comment on above: Performed By: #### 2 88483 #### [facility],[address] [place] [address] 73813 T4-FREE (FREE THYROXINE)on Free T4 [Mass/Vol] 0.90 ng/dL Normal 0.76 - 1.46 [facility] Comment on above: Result Comment: P otential of falsely elevated results when biotin concentrations are > 10 ng/mL. Performed By: #### 2 27400 #### [facility],[address] [place] [address] 04726 TSHon 01-19-2023 TSH Qn 4.05 m[IU]/L High 0.35 - 3.74 [facility] Comment on above: Performed By: #### 2 67811 #### [facility],[address] [place] [address] 65697 HGB A1C [CCL]on 10-18-2022 HbA1c (Bld) [Mass fraction] 5.6 % Normal 4.3-5.6 [facility] Comment on above: Result Comment: Amer ican Diabetes Association guidelines indicate that patients with HgbA1c in the range 5.7-6.4% are at increased risk for development of diabetes, and intervention by lifestyle modification may be beneficial. HgbA1c greater or equal to 6.5% is considered diagnostic of diabetes. Performed By: #### 2 06687 #### [address] [address] Hemoglobin A0 114 mg/dL Normal [facility] Comment on above: Result Comment: eAG: (Estimated average glucose) is a calculated value from HgbA1c and is apprenticeship training representative of the average blood glucose level in the last 2-3 month period. [facility] [address] [place] [address] Chris Hinojosa III, M.D. [id number] Performed By: #### 2 75642 #### [place] [id number] T4-FREE (FREE THYROXINE)on 0 10-17-2022 Free T4 [Mass/Vol] 0.79 ng/dL Normal 0.76 - 1.46 [facility] Comment on above: Result Comment: P otential of falsely elevated results when biotin concentrations are > 10 ng/mL. Performed By: #### 2 89374 #### [address] [address] TSHon 10-17-2022 TSH Qn 5.46 m[IU]/L High 0.35 - 3.74 [facility] Comment on above: Performed By: #### 2 31097 #### [address] [address] [employer] Cytology Reporton 2022 [employer] Cytology Report . Pathology Reports Accession: Collected Date/Time: Received Date/Time: Pathologist: [id number] 07/21/2022 09:53 EDT 07/21/2022 18:00 EDT JOCY REA MD [employer] Cytology Report SPECIMEN: Specimen Description: Liquid Prep w/ HPV Specimen: Cervical/Endocervical Screening or Diagnostic: Screening RELEVANT HISTORY: LMP: [id number] SPECIMEN ADEQUACY: SATISFACTORY FOR EVALUATION Endocervical/Transformat ional zone component present INTERPRETATION/RESULTS: EPITHELIAL CELL ABNORMALITIES, SQUAMOUS Atypical squamous cells of undetermined significance (ASC-US) HIGH RISK HPV TESTING: Event Code Result HPV Interp See Interp HPVN HPV Interp Text: High Risk HPV Typing: NEGATIVE HPV types 16, 18, 31, 33, 35, 39, 45, 51, 52, 56, 58, 59, 66 and 68 DNA were undetectable or below the pre-set threshold. The ortega High-Risk HPV DNA Test is not intended for use as a screening device for Pap normal women under age 30 and is not intended to substitute for regular Pap screening. The ortega High-Risk HPV DNA Test is designed to augment existing methods for the detection of cervical disease and should be used in conjunction with clinical information derived from other diagnostic and screening tests, physical examinations and full medical history in accordance with appropriate patient management procedures. NOTE: A negative result does not preclude the presence of HPV infection because results depend on adequate specimen collection, absence of inhibitors and sufficient DNA to be detected. As of: 07/26/22 16:00 EDT COMMENT: This Pap Test was successfully processed and evaluated with the assistance of the ISpeakPrep Test Imaging System. Pathology Reports Accession: Collected Date/Time: Received Date/Time: Pathologist: [id number] 07/21/2022 09:53 EDT 07/21/2022 18:00 EDT JOYC REA MD Electronically Signed by Pathology report verified by [facility] Screened by: PANTERA Electronically signed by JOCY REA Sign-Out Date: 07/27/2022 11:59 Performing Lab: [facility], [address] [place] [address] Pathology Dept Disclaimer The Pap test is a screening test for cervical cancer. As evidenced by published data, it is subject to both inherent false negative and false positive results. Your patient's results should be interpreted in context with pertinent clinical history including gynecological examination. Normal [facility] HPVon 07-26-2022 HPV Interp Normal See Interp HPVN [facility] Comment on above: Order Comment: Order placed by AP_HPV_ORDER rule from [id number] Result Comment: High Risk HPV Typing: NEGATIVE HPV types 16, 18, 31, 33, 35, 39, 45, 51, 52, 56, 58, 59, 66 and 68 DNA were undetectable or below the pre-set threshold. The [place]tega High-Risk HPV DNA Test is not intended for use as a screening device for Pap normal women under age 30 and is not intended to substitute for regular Pap screening. The [place]ga High-Risk HPV DNA Test is designed to augment existing methods for the detection of cervical disease and should be used in conjunction with clinical information derived from other diagnostic and screening tests, physical examinations and full medical history in accordance with appropriate patient management procedures. NOTE: A negative result does not preclude the presence of HPV infection because results depend on adequate specimen collection, absence of inhibitors and sufficient DNA to be detected. See Inter HPVN Performed By: #### H PV #### [place] [address] HPV Source Cervix Normal [facility] Comment on above: Order Comment: Order placed by AP_HPV_ORDER rule from [id number] Performed By: #### H PV #### [place] [address] CBC + DIFFon 07-21-2022 Baso # 0.00 x10EE3/UL Normal 0.00 - 0.10 [facility] Comment on above: Performed By: #### 2 83262 #### [address] [address] Basophils/100 WBC (Bld) 0.9 % Normal 0.0 - 2.0 [facility] Comment on above: Performed By: #### 2 80921 #### [facility],[address] [place] [address] 29034 CBC + DIFF Normal [facility] Comment on above: Result Comment: CBC- COMPLETE BLOOD COUNT Performed By: #### 2 35777 #### [address] [address] EO # 0.20 x10EE3/UL Normal 0.00 - 0.50 [facility] Comment on above: Performed By: #### 2 55985 #### [facility],[address] [place] [address] 07154 Eosinophils/100 WBC (Bld) 4.4 % Normal 0.0 - 7.0 [facility] Comment on above: Performed By: #### 2 00389 #### [facility],[address] [place] [address] Erythrocyte distribution width (RBC) [Ratio] 13.3 % Normal 12.0 - 15.6 [facility] Comment on above: Performed By: #### 2 61534 #### [facility],[address] [place] [address] Hematocrit (Bld) [Volume fraction] 41.2 % Normal 34.0 - 46.0 [facility] Comment on above: Performed By: #### 2 81208 #### [facility],[address] [place] [address] Hemoglobin (Bld) [Mass/Vol] 14.1 g/dL Normal 12.0 - 16.0 [facility] Comment on above: Performed By: #### 2 01118 #### [facility],[address] [place] [address] Lymph # 1.50 x10EE3/UL Normal 0.80 - 2.80 [facility] Comment on above: Performed By: #### 2 71071 #### [facility],[address] [place] [address] Lymphocytes/100 WBC (Bld) 28.9 % Normal 20.0 - 45.0 [facility] Comment on above: Performed By: #### 2 59064 #### [facility],[address] [place], [place] [id number] MANUAL DIFF N/A Normal [facility] Comment on above: Performed By: #### 2 72054 #### [facility],[address] [place] [address] MCH (RBC) [Entitic mass] 31 pg Normal 27 - 33 [facility] Comment on above: Performed By: #### 2 48053 #### [facility],[address] [place] [address] MCHC 34 X10 3 Normal 32 - 36 [facility] Comment on above: Performed By: #### 2 49832 #### [facility],[address] [place] [address] MCV (RBC) [Entitic vol] 91 fL Normal 80 - 99 [facility] Comment on above: Performed By: #### 2 19450 #### [facility],[address] [place] [address] Whitley # 0.50 x10EE3/UL Normal 0.20 - 1.00 [facility] Comment on above: Performed By: #### 2 00119 #### [facility],[address] [place] [address] MONOS % 9.5 % Normal 0.0 - 10.0 [facility] Comment on above: Performed By: #### 2 70135 #### [facility],[address] [place] [address] Morphology Michael (Bld) [Interp] N/A Normal [facility] Comment on above: Performed By: #### 2 58191 #### [facility],[address] [place] [address] Neut # 2.80 x10EE3/UL Normal 1.50 - 7.10 [facility] Comment on above: Performed By: #### 2 51718 #### [facility],[address] [place] [address] Neutrophils/100 WBC (Bld) 56.3 % Normal 46.0 - 76.0 [facility] Comment on above: Performed By: #### 2 82253 #### [facility],[address] [place] [address] PLATELET 242 x10EE3/UL Normal 150 - 450 [facility] Comment on above: Performed By: #### 2 63850 #### [facility],[address],[place] [address] Platelet mean volume (Bld) [Entitic vol] 9.8 fL Normal 6.6 - 10.5 [facility] Comment on above: Result Comment: AUTO MATED DIFFERENTIAL Performed By: #### 2 55781 #### [facility],[address] [place] [address] 23809 RBC 4.51 x 10EE6/UL Normal 4.10 - 5.30 [facility] Comment on above: Performed By: #### 2 10226 #### [facility],[address] [place] [address] 34458 WBC 5.1 x 10EE3/UL Normal 4.5 - 10.8 [facility] Comment on above: Performed By: #### 2 86381 #### [facility],[address] [place] [address] 28307 CMP with eGFRon 07-21-2022 AGE 51 years Normal [facility] Comment on above: Performed By: #### 2 07540 #### [facility],[address] [place] [address] 01956 Albumin [Mass/Vol] 4.3 g/dL Normal 3.4 - 5.0 [facility] Comment on above: Performed By: #### 2 37188 #### [facility],[address] [place] [address] 42893 Albumin/Globulin [Mass ratio] 1.3 {ratio} Normal 0.9 - 1.6 [facility] Comment on above: Performed By: #### 2 89851 #### [facility],[address] [place] [address] 19577 ALK PHOS 103 U/L Normal 46 - 116 [facility] Comment on above: Performed By: #### 2 43929 #### [facility],[address] [place] [address] 06943 ALT [Catalytic activity/Vol] 71 U/L High 14 - 59 [facility] Comment on above: Performed By: #### 2 97574 #### [facility],[address] [place] [address] 62773 Anion gap [Moles/Vol] 14 mmol/L Normal 10 - 20 [facility] Comment on above: Performed By: #### 2 73024 #### [facility],[address] [place] [address] 22816 AST [Catalytic activity/Vol] 50 U/L High 13 - 39 [facility] Comment on above: Performed By: #### 2 31413 #### [facility],[address] [place] [address] 77464 B/C RATIO 22 ratio Normal 0 - 30 [facility] Comment on above: Performed By: #### 2 45464 #### [facility],[address] [place] [address] 49140 Bilirubin [Mass/Vol] 0.4 mg/dL Normal 0.2 - 1.0 [facility] Comment on above: Performed By: #### 2 62208 #### [facility],[address] [place] [address] 12744 Calcium [Mass/Vol] 9.5 mg/dL Normal 8.5 - 10.1 [facility] Comment on above: Performed By: #### 2 30641 #### [facility],[address] [place] [address] 34441 Chloride [Moles/Vol] 106 mmol/L Normal 98 - 107 [facility] Comment on above: Performed By: #### 2 97938 #### [facility],[address] [place] [address] 48278 CMP with eGFR Normal [facility] Comment on above: Result Comment: COMP REHENSIVE METABOLIC PANEL Performed By: #### 2 05528 #### [facility],[address] [place] [address] 93063 CO2 [Moles/Vol] 30.3 mmol/L Normal 21.0 - 32.0 [facility] Comment on above: Performed By: #### 2 55864 #### [facility],[address] [place], [place] [address] Creatinine [Mass/Vol] 0.87 mg/dL Normal 0.55 - 1.02 [facility] Comment on above: Performed By: #### 2 16629 #### [facility],[address] [place], [place] [address] GFR/1.73 sq M.predicted among non-blacks MDRD (S/P/Bld) [Vol rate/Area] mL/min/{1.73_m2} Normal 60 - 999 [facility] Comment on above: Performed By: #### 2 40185 #### [facility] [facility],[address] [place] [address] Result Comment: ACCO RDING TO THE NATIONAL KIDNEY DISEASE EDUCATION PROGRAM(NKDE), A NORMAL eGFR IS A VALUE GREATER THAN OR EQUAL TO 60 ML/MIN/1.73 SQ METERS. CHRONIC KIDNEY DISEASE: <60mL/MIN/1.73 SQ METERS KIDNEY FAILURE: <15mL/MIN/1.73 SQ METERS THIS TEST SHOULD ONLY BE USED FOR PATIENTS 18 YEARS OF AGE AND OLDER. Globulin (S) [Mass/Vol] 3.3 g/dL Normal 1.5 - 3.8 [facility] Comment on above: Performed By: #### 2 [id number] #### [facility],[address] [place] [address]15 Glucose [Mass/Vol] 109 mg/dL High 74 - 106 [facility] Comment on above: Performed By: #### 2 [id number] #### [facility],[address] [place] [address] 58974 Potassium [Moles/Vol] 4.1 mmol/L Normal 3.5 - 5.1 [facility] Comment on above: Performed By: #### 2 [id number] #### [facility],[address] [place], [place] [id number] Protein [Mass/Vol] 7.6 g/dL Normal 6.4 - 8.2 [facility] Comment on above: Performed By: #### 2 [id number] #### [facility],[address] [place] [address] 15901 Sodium [Moles/Vol] 146 mmol/L High 136 - 145 [facility] Comment on above: Performed By: #### 2 [id number] #### [facility],[address] [place] [address] 51755 Urea nitrogen [Mass/Vol] 19 mg/dL High 7 - 18 [facility] Comment on above: Performed By: #### 2 [id number] #### [facility],[address] [place] [address] 77556 LIPID PROFILEon 07-21-2022 Cholesterol [Mass/Vol] 185 mg/dL Normal 0 - 240 [facility] Comment on above: Performed By: #### 2 00055 #### [facility],[address] [place] [address] 72228 Cholesterol in HDL [Mass/Vol] 67 mg/dL High 40 - 60 [facility] Comment on above: Performed By: #### 2 64461 #### [facility],[address] [place] [address] 04294 Cholesterol in LDL [Mass/Vol] 107 mg/dL Normal 0 - 129 [facility] Comment on above: Performed By: #### 2 [id number] #### [facility],[address] [place] [address] 99412 Cholesterol.total/C holesterol in HDL [Mass ratio] 2.8 {ratio} Normal 0.0 - 5.0 [facility] Comment on above: Performed By: #### 2 [id number] #### [facility],[address] [place] [address] 44892 Lipid 1996 panel Normal [facility] Comment on above: Result Comment: LIPI D PROFILE Performed By: #### 2 [id number] #### [facility],[address] [place] [address] 66450 Triglyceride [Mass/Vol] 55 mg/dL Normal 0 - 150 [facility] Comment on above: Performed By: #### 2 [id number] #### [facility],[address] [place] [address] 77432 T4-FREE (FREE THYROXINE)on 0 07-21-2022 Free T4 [Mass/Vol] 0.62 ng/dL Low 0.76 - 1.46 [facility] Comment on above: Result Comment: P otential of falsely elevated results when biotin concentrations are > 10 ng/mL. Performed By: #### 2 [id number] #### [facility],[address] [place] [address] 20537 TSHon 07-21-2022 TSH Qn 10.50 m[IU]/L High 0.35 - 3.74 [facility] Comment on above: Performed By: #### 2 [id number] #### [facility],[address] [place] [address] 29004 VITAMIN D, 25 HYDROXYon 07-02 VitD 25.70 ng/mL Low 30.00 - 100 [facility] Comment on above: Result Comment: 25-O HD3 indicates both endogenous production and supplementation. 25-OHD2 is an indicator of exogenous sources, such as diet or supplementation. Therapy is based on measurement of Total 25-OHD, with levels <20 ng/mL indicative of Vitamin D deficiency, while levels between 20 ng/mL and 30 ng/mL suggest insufficiency. Optimal levels are >=30ng/mL. Vitamin D, 25-OH D3 Not Established Vitamin D, 25-OH D2 Not Established Performed By: #### 2 [id number] #### [facility],[address] [place] [address]88 Vital Signs Date Time Vital Sign Value Performing Clinician Facility 05-23-2024 13:02-0500 Body height 172.72 cm Blanquita LOPEZ Work Phone: [facility] 05-23-2024 13:02-0500 Body mass index (BMI) [Ratio] 30.7 kg/m2 Blanquita LOPEZ Work Phone: [facility] 05-23-2024 13:02-0500 Body weight 91.62 kg Blanquitahelena Lim DIRECTOR RELIGIOUS EDUCATION-C Work Phone: [facility] 05-23-2024 13:02-0500 Diastolic blood pressure 82 mm[Hg] Blanquita Lim DIRECTOR RELIGIOUS EDUCATION-C Work Phone: [facility] 05-23-2024 13:02-0500 Heart rate 70 /min Blanquita Lim DIRECTOR RELIGIOUS EDUCATION-C Work Phone: [facility] 05-23-2024 13:02-0500 Respiratory rate 18 /min Blanquitahelena Lim DIRECTOR RELIGIOUS EDUCATION-C Work Phone: [facility] 05-23-2024 13:02-0500 SaO2% (BldA) [Mass fraction] 98 % Blanquitahelena Lim DIRECTOR RELIGIOUS EDUCATION-C Work Phone: [facility] 05-23-2024 13:02-0500 Systolic blood pressure 121 mm[Hg] Blanquita Lim DIRECTOR RELIGIOUS EDUCATION-C Work Phone: [facility] 08-20-2023 16:48-0400 Body height 172.7 cm Stayci Natterer DO Work Phone: [facility] 08-20-2023 16:48-0400 Body mass index (BMI) [Ratio] 29.19 kg/m2 Stayci Natterer DO Work Phone: [facility] 08-20-2023 16:48-0400 Body temperature 98.2 [degF] Stayci Natterer DO Work Phone: [facility] 08-20-2023 16:48-0400 Body weight 87.09 kg Stayci Natterer DO Work Phone: [facility] 08-20-2023 16:48-0400 Diastolic blood pressure 105 mm[Hg] Stayci Natterer DO Work Phone: [facility] 08-20-2023 16:48-0400 Heart rate 86 /min Stayci Natterer DO Work Phone: [facility] 08-20-2023 16:48-0400 Respiratory rate 18 /min Stayci Natterer DO Work Phone: [facility] 08-20-2023 16:48-0400 SaO2% (BldA) [Mass fraction] 100 % Stayci Natterer DO Work Phone: [facility] 08-20-2023 16:48-0400 Systolic blood pressure 156 mm[Hg] Stayci Natterer DO Work Phone: [facility] 03-03-2023 17:24-0500 Body height 175.3 cm Christi Morgan MD Work Phone: [facility] 03-03-2023 17:24-0500 Body mass index (BMI) [Ratio] 28.35 kg/m2 Christi Morgan MD Work Phone: [facility] 03-03-2023 17:24-0500 Body temperature 97.39 [degF] Christi Morgan MD Work Phone: [facility] 03-03-2023 17:24-0500 Body weight 87.09 kg Christi Morgan MD Work Phone: [facility] 03-03-2023 17:24-0500 Diastolic blood pressure 94 mm[Hg] Christi Morgan MD Work Phone: [facility] 03-03-2023 17:24-0500 Heart rate 94 /min Christi Morgan MD Work Phone: [facility] 03-03-2023 17:24-0500 Respiratory rate 16 /min Christi Morgan MD Work Phone: [facility] 03-03-2023 17:24-0500 SaO2% (BldA) [Mass fraction] 97 % Christi Morgan MD Work Phone: [facility] 03-03-2023 17:24-0500 Systolic blood pressure 140 mm[Hg] Christi Morgan MD Work Phone: [facility] Encounters Encounter Date Encounter Type Care Provider Facility Start: 06-20-2024 End: 06-20-2024 ambulatory Blanquita Lim DIRECTOR RELIGIOUS EDUCATION-C Work Phone: [facility] Work Phone: Start: 06-20-2024 End: 06-20-2024 Patient encounter procedure [facility] Blanquita Raphael DIRECTOR RELIGIOUS EDUCATION-C -Outpatient Breast Imaging Work Phone: Start: 06-20-2024 End: 06-20-2024 ambulatory Blanquita Raphael [facility] Facility:[facility] Start: 06-17-2024 ambulatory Javier Lucernemines Facility :[facility] Start: 06-17-2024 Non-patient / Non-visit Dr. Geneva Mcclelland MD -[facility] Start: 06-13-2024 End: 06-13-2024 ambulatory Blanquita Raphael DIRECTOR RELIGIOUS EDUCATION-C Work Phone: [facility] Work Phone: Start: 06-13-2024 End: 06-13-[address] Javier Morales MD -Cardiovascular Services Work Phone: Start: 06-13-2024 End: 06-13-2024 ambulatory Javier Morales Facility:[facility] Start: 05-23-2024 End: 05-23-[address] Javier Morales MD -[facility] Work Phone: Start: 05-23-2024 End: 05-23-2024 ambulatory Javier Morales Facility:[facility] Start: 03-24-2024 ambulatory [facility] Fa cility:[facility] Start: 03-24-2024 Non-patient / Non-visit Dr. Patricia LIM -[facility] Start: 03-24-2024 End: 03-24-2024 Patient encounter procedure [facility] Blanquita Raphael DIRECTOR RELIGIOUS EDUCATION-C -Cat Scan, [facility] Work Phone: Start: 03-24-2024 End: 03-24-2024 ambulatory Blanquita Raphael [facility] Facility:[facility] Start: 03-03-2024 Encounter for gynecological examination (general) (routine) without abnormal findings [facility] Start: 01-17-2024 ambulatory [facility] Facility:[facility] Start: 01-15-2024 End: 01-15-2024 ambulatory [facility] Facility:[facility] Start: 10-11-2023 ambulatory [facility] Facility[facility] Start: 10-11-2023 End: 10-11-2023 ambulatory [facility] Facility:[facility] Start: 08-20-2023 End: 08-20-2023 Emergency department patient visit BERTHA K ANGELINA [facility] Start: 08-20-2023 End: 08-20-2023 Emergency department patient visit Daron Martines DO Work Phone: [facility] Comment on above: Face pain (Primary D x) Start: 08-20-2023 End: 08-20-2023 Evaluation and management of inpatient Daron Martines DO Work Phone: [facility] Start: 08-15-2023 ambulatory BERTHA [facility] Start: 08-14-2023 End: 08-14-2023 Emergency department patient visit VITA POOLE [facility] Start: 07-13-2023 End: 07-13-2023 ambulatory [facility] Facility:[facility] Start: 06-18-2023 End: 06-18-2023 ambulatory [facility] Work Phone: Start: 06-18-2023 End: 06-18-2023 Patient encounter procedure [facility]-Outpatient Breast Imaging Work Phone: Start: 03-03-2023 End: 03-03-2023 Emergency department patient visit BERTHA ALFARO [facility] Start: 03-03-2023 End: 03-03-2023 Emergency department patient visit Christi Morgan MD Work Phone: [facility] Comment on above: Acute cystitis witho ut hematuria (Primary Dx) Start: 03-03-2023 End: 03-03-2023 Evaluation and management of inpatient Christi Morgan MD Work Phone: [facility] Start: 01-19-2023 End: 01-19-2023 ambulatory [facility] Start: 10-17-2022 End: 10-17-2022 ambulatory [facility] Start: 07-21-2022 End: 07-21-2022 ambulatory [facility] Start: 07-21-2022 Encounter for gynecological examination (general) (routine) without abnormal findings [facility] Procedures Date Procedure Procedure Detail Performing Clinician Start: 06-20-2024 Screening mammography Phani Lim NP-C Work Phone: Start: 05-23-2024 Evaluation of diagno stic study results Blanquita LOPEZ Work Phone: Start: 03-24-2024 CT angiography of co ronary arteries Blanquita LOPEZ Work Phone: Start: 06-18-2023 Screening mammography Start: 03-03-2023 Urnls dip stick/tabl et reagent auto microscopy Christi Morgan MD Work Phone: Plan of Treatment Date Care Activity Detail Author Start: 12-02-2023 Influenza vaccination Influenza Vaccine (Season Ended) [facility] Start: 08-20-2023 Hypertension/CHF/CAD Annual BMP Blood Test Hypertension/CHF/CAD Annual BMP Blood Test [facility] Start: 03-03-2023 Adolescent depression screening assessment Depression Screening [facility] Start: 03-03-2023 Hepatitis C screening Hepatitis C Screening [facility] Start: 03-03-2023 HIV screening HIV Screening [facility] Start: 03-03-2023 Lipid panel Cholesterol Screening (Lipid Panel) [facility] Start: 03-03-2023 Screening for malignant neoplasm of breast Breast Cancer Screening [facility] Start: 03-03-2023 Screening for malignant neoplasm of colon Colorectal Cancer Screening: Colonoscopy [facility] Start: 03-03-2023 Social Influencers of Health Screening Social Influencers of Health Screening [facility] Start: 12-01-2022 COVID-19 Vaccine ( season) COVID-19 Vaccine (2022-24 season) [facility] Start: 12-01-2022 Influenza vaccination Influenza Vaccine (#1) [facility] Start: 09-28-2019 Zoster Vaccines (1 of 2) Zoster Vaccines (1 of 2) [facility] Start: 1990 Screening for malignant neoplasm of cervix Cervical Cancer Screening: Pap Smear [facility] Start: 1988 DTaP,Tdap,and Td Vaccines (1 - Tdap) DTaP,Tdap,and Td Vaccines (1 - Tdap) [facility] Start: 1988 Hepatitis B Vaccines (1 of 3 - 19+ 3-dose series) Hepatitis B Vaccines (1 of 3 - 19+ 3-dose series) [facility] Start: 03-29-1970 COVID-19 Vaccine (#1) COVID-19 Vaccine (#1) [facility] Start: 1969 Hepatitis B Vaccines (1 of 3 - 3-dose series) Hepatitis B Vaccines (1 of 3 - 3-dose series) [facility] Start: 1969 Screening for malignant neoplasm of breast Breast Cancer Screening [facility] Hepatic function panel [facility] Lipid 1996 panel - Serum or Plasma [facility] Patient Education RAD RN Underst anding Coronary Calcium Scan [facility] Work Phone: Patient referral [facility] Work Phone: Payers Date Payer Category Payer Unknown [id number] 2024 Unknown [id number] 2023 Self-pay 2023 Medicaid [employer] [facility] [place] [employer] [id number] 2023-Present [address] [address] [place] [address] [id number] 2023 Unknown [id number] 1970 Unknown [id number] 1969 Unknown [id number] [id number] 1969 Unknown [id number] [id number] 1969 Unknown [id number] 2.16.840.1.206117.3.579.2.651 1969 Unknown [id number] 2.16.840.1.891917.3.579.2.651 1969 Unknown [id number] 2.16.840.1.169032.3.579.2.651 1969 Unknown [id number] [id number] Unknown ANTHEM [id number] Unknown [facility] 0 [id number] Unknown [id number] [id number] Unknown [id number] 2.840.1.375890.3.579.2.462 Unknown [id number] [id number] Unknown [id number] [id number] Unknown [id number] 2.840.1.498541.3.579.2.462 Unknown [id number] 2.16.840.1.572427.3.579.2.462 Unknown [id number] 2.16.840.1.817233.3.579.2.462 Unknown [id number] 2.16.840.1.588626.3.579.2.462 Unknown [id number] [id number] Unknown [id number] [id number] Unknown [id number] [id number] Unknown [id number] [id number] Social History Date Type Detail Facility Start: 03-03-2023 End: 10-02-2023 Tobacco smoking status NHIS Never smoked tobacco [facility] Start: 03-03-2023 Tobacco use and exposure Smokeless tobacco non-user [facility] Start: 03-03-2023 End: 08-20-2023 Alcohol intake Current drinker of alcohol (finding) [facility] Start: 03-03-2023 Alcohol Comment occassionally [facility] Start: 1970 Sex Assigned At Not on file [facility] Gender identity Not on file [facility] Start: 1970 Sex Assigned At Female [facility] Start: 06-24-2024 End: 06-27-2024 Sex Female (finding) [facility] Medical Equipment Procedure Code Equipment Code Equipment Origin al Text Equipment Identifier Dates Colonoscopy Ligation clip, metallic ([id number] Start: 10-11-2023 Evaluation note 05-23-2024 Note Date & Type Note Facility 05-23-2024 Evaluation note Diagnosis Onset Date Resolution CAD (coronary artery disease) acute May 23 12:57pm Hyperlipidemia acute May 042024 12:57pm Hypertension chronic May 12:57pm [facility] Work Phone: Clinical Note 10-11-2023 Note Date & Type Note Facility 10-11-2023 Note [facility] Medical Records Department [address] [place] [address] History Physical Exam 10/11/23 0945 MR#: [id number] Acct: [id number] Name: TAMARA JOSE Rep #: [id number] : 1970 53 From: Javier Jones MD [facility] Status:[facility] Location: [place] [address] History and Physical Date of Admission: 10/11/23 Date of Service: 07/13/23 MR#: [id number] Acct: [id number] Name: TAMARA JOSE Rep #: [id number] : 1970 Provider: Dr. Javier Jones MD Age/Sex: 52/F Location: [facility] Status: Signed Intake Vital Signs 07/13/2407:34 Height 5 ft 9 in Weight: 199 lb 6 oz BMI 29.4 BP 120/82 H Blood Pressure Location Rt brachial Position Sitting Respiration 18 Pulse 69 Pulse Source Monitor Temp 97.2 F L Temp Source Temporal Pulse Oximetry (%) 98 Oxygen Delivery Method room air Intake Visit Reasons: GERD , SCREENING SCOPE Chief Complaint: GERD screening scope Is patient in pain?: No Allergies bee venom protein (honey bee) Allergy (Severe, Verified 07/13/23 08:35) AnaphylaxisSulfa (Sulfonamide Antibiotics) Allergy (Severe, Verified 07/13/23 08:35) Anaphylaxis Medications amlodipine 5 mg tablet 5 mg PO QDAY 07/13/23 [History Confirmed 07/13/23] atorvastatin 10 mg tablet 10 mg PO QDAY 07/13/23 [History Confirmed 07/13/23] cholecalciferol (vitamin D3) 50 mcg (2,000 unit) capsule (Vitamin D3) 100 mcg PO QDAY 07/13/23 [History Confirmed 07/13/23] fluticasone propionate 50 mcg/actuation nasal spray,suspension spray intranasal 07/13/23 [History Confirmed 07/13/23] lisinopril 40 mg tablet 40 mg PO QDAY 07/13/23 [History Confirmed 07/13/23] loratadine 10 mg tablet 10 mg PO QDAY 07/13/23 [History Confirmed 07/13/23] omeprazole 20 mg capsule,delayed release 20 mg PO QDAY 07/13/23 [History Confirmed 07/13/23] simvastatin 20 mg tablet 20 mg PO QPM hyperlipidemia 07/13/23 [History Confirmed 07/13/23] vitamin E (dl, acetate) 180 mg (400 unit) capsule 180 mg PO QDAY 07/13/23 [History Confirmed 07/13/23] PFSH Medical History (Updated 07/13/23 @ 20:[address] Javier Jones MD) delivery delivered Family History (Updated 07/13/23 @ 08:34 by Lisa Fry LPN) Grandmother Breast cancerFather Heart disease Myocardial infarction Social History (Updated 07/13/23 @ 08:34 by Lisa Fry LPN) Smoking Status: Never smoker alcohol intake: never substance use type: does not use HPI HPI HPI: Patient is a 52-year-old female who presents for further evaluation of gastroesophageal reflux disease as well as scheduling screening colonoscopy. They are referred for surgical consultation from Blanquita Lim NP of the [facility]. Patient states that she was first diagnosed with gastroesophageal reflux disease approximately 5 years ago when she was begun on omeprazole. She shares that unfortunately she lost her insurance and was unaware of [id number] PPI therapy so she effectively went off of omeprazole January and March 2023. She shares she had many symptoms during this time and was only later in this interval made aware of the [id number] option. She notes that her symptoms are very well-controlled on omeprazole and that she experiences No breakthrough symptoms even when eating spicy foods. She denies any prior history of EGD. She does confirm that her symptoms are those of reflux rather than heartburn when they are experienced and she describes them as burning like a shot of fireball. She denies any frequent nighttime awakenings. She states she takes dinner between 5 and 7 in the evening and is in bed by 11. She reports she is unable to prop her head because she gets a stiff neck. Patient has not had prior colonoscopy nor any other screening for colon cancer. They describe their bowel habits as normal. They have approximately 2 bowel movements per day and spend roughly a few minutes on the toilet without significant straining. They have not noticed recent bleeding or dark stools. They do not regularly take fiber supplements. Patient has no family history of colon cancer, inflammatory bowel disease, or diverticulitis. The patient's weight is stable. The patient is not prescribed anticoagulants/blood thinners. Relevant prior abdominal surgical history includes: section ROS General General: No weight change, appetite, fatigue, colon cancer, breast cancer or weakness HEENT HEENT: No difficulty swallowing, eye injury, eye surgery, swollen glands or hoarseness Endo Endocrine: No thyroid disease, diabetes mellitus, thyroid cancer, Hair loss, heat intolerance or cold into (more content not included)... [facility] Discharge instructions 05-20-2024 Discharge Instructions Note Date & Type Note Facility 08-20-2023 Hospital Discharg e instructions Marion Wilson NP - 08/20/2023 5:40 PM EDT Have called in a prescription for Percocet to your pharmacy, please take this as directed pain relief. Medicine does contain Tylenol, do not take additional Tylenol when you are taking this medication. Return to the emergency department if you develop any new or worsening symptoms. documented in this encounter [facility] History of Present illness Narrative 08-20-2023 Kianna Juan RN - 08/20/2023 4:47 PM EDT Note Date & Type Note Facility 08-20-2023 History of Presen t illness Narrative Pt had 2 upper teeth extracted today. Now face swollen and having increased pain.pt has been rotating tylenol and ibuprofen with no relief. documented in this encounter [facility] History of Present illness Narrative 03-03-2023 Christi Morgan MD - 03/03/2023 5:16 PM EST Note Date & Type Note Facility 03-03-2023 History of Presen t illness Narrative [facility] Emergency Department Encounter Note Patient Name: Tamara Jose Initial Evaluation: 03/03/2023 : 1970 Patient's PCP: Bertha Alfaro NP Emergency Physician: Christi Morgan MD Chief Complaint Patient presents with Female Dysuria Pt having burning w/ urination, frequency that started last night. History of Present Illness HPI: 52-year-old female with a history of hypertension here with urinary symptoms. Patient reports about 2 days of subjective fevers, urinary urgency, frequency, dysuria and suprapubic discomfort, states she feels like she is being punched in the vagina. Patient denies any back pain or abdominal pain otherwise. She denies vomiting. Patient is a non-smoker, no history of diabetes She has no concern for STI, no vaginal discharge or drainage Family member present at the bedside, niece Chronic conditions affecting care-hypertension PDMP report reviewed ROS: Review of Systems Respiratory: Negative for cough and shortness of breath. Cardiovascular: Negative for chest pain. Gastrointestinal: Negative for diarrhea and vomiting. Genitourinary: Negative for hematuria. Musculoskeletal: Negative for back pain. Skin: Negative for rash. Remaining ROS are as documented in HPI. Previous History Past Medical History: Past Medical History: Diagnosis Date Hypertension Past Surgical History: History reviewed. No pertinent surgical history. Medications: Discharge Medication List as of 03/03/2023 6:13 PM START taking these medications Details cephalexin (KEFLEX) 500 mg capsule Take 1 capsule (500 mg total) by mouth 3 (three) times a day for 7 days., Starting 03/03/2023, Until 03/10/2023, Print phenazopyridine (PYRIDIUM) 200 mg tablet Take 1 tablet (200 mg total) by mouth 3 (three) times a day for 2 days., Starting 03/03/2023, Until 03/05/2023, Print CONTINUE these medications which have NOT CHANGED Details amLODIPine (NORVASC) 10 mg tablet Take by mouth 1 (one) time each day., Historical Med aspirin 81 mg EC tablet Take 1 tablet (81 mg total) by mouth 1 (one) time each day., Historical Med atorvastatin (LIPITOR) 10 mg tablet Take 1 tablet (10 mg total) by mouth at bedtime., Historical Med fluticasone propionate (FLONASE) 50 mcg/actuation nasal spray Administer 1 spray into each nostril 1 (one) time each day. Shake gently. Before first use, prime pump. After use, clean tip and replace cap., Historical Med lisinopriL (PRINIVIL,ZESTRIL) 10 mg tablet Take 1 tablet (10 mg total) by mouth 1 (one) time each day., Historical Med loratadine (CLARITIN) 10 mg tablet Take 1 tablet (10 mg total) by mouth 1 (one) time each day., Historical Med omeprazole (PriLOSEC) [address] capsule Take 1 capsule (10 mg total) by mouth 1 (one) time each day. Do not crush or chew., Historical Med simvastatin (ZOCOR) 10 mg tablet Take 1 tablet (10 mg total) by mouth at bedtime., Historical Med Allergies: Environmental [bee venom protein (honey bee)] and Sulfa (sulfonamide antibiotics) Social and Family History: Social History Tobacco Use Smoking status: Never Smokeless tobacco: Never Substance Use Topics Alcohol use: Yes Comment: occassionally No family history on file. Physical Exam ED Triage Vitals [03/03/23 1724] Temp Heart Rate Resp BP 36.3 C (97.4 F) 94 16 (!) 140/94 SpO2 Temp Source Heart Rate Source Patient Position 97 % Oral Monitor Sitting BP Location FiO2 (%) Left arm -- Pulse ox 97% Physical Exam Vitals and nursing note reviewed. Constitutional: General: She is not in acute distress. Appearance: She is not diaphoretic. HENT: Head: Normocephalic and atraumatic. Eyes: General: No scleral icterus. Conjunctiva/sclera: Conjunctivae normal. Cardiovascular: Rate and Rhythm: Normal rate and regular rhythm. Pulmonary: Effort: Pulmonary effort is normal. No respiratory distress. Breath sounds: Normal breath sounds. Abdominal: General: There is no distension. Palpations: Abdomen is soft. Tenderness: There is no abdominal tenderness. There is no guarding or rebound. Musculoskeletal: General: No swelling or deformity. Cervical back: Normal range of motion and neck supple. Skin: General: Skin is warm and dry. Neurological: Mental Status: She is alert and oriented to person, place, and time. Comments: Moves all extremities without difficulty ED Results: ED Labs: Labs Reviewed URINALYSIS WITH REFLEX MICROSCOPIC - Abnormal Result Value Color, Urine Light Yellow (*) Clarity, Urine Hazy (*) Specific [place]hen[place], Urine 1.010 pH, Urine 7.5 Leukocytes, Urine 500 (*) Nitrite, Urine Negative Protein, Urine 30 (*) Blood, Urine 3+ (*) Glucose, Urine Normal Ketones, Urine Negative Urobilinogen, Urine Normal Bilirubin, Urine Negative URINALYSIS MICROSCOPIC ONLY - Abnormal RBC, Urine 51-100 (*) WBC, Urine 51-100 (*) Bacteria, Urine Few (*) WBC Clumps, Urine Few (*) ED Radiology: No orders to display The laboratory results, imaging results and other diagnostic exam results related to this ED encounter were reviewed in the EMR. ED Procedures: Procedures ED Administered Mediations: Medications cephalexin (KEFLEX) capsule 500 mg (500 mg oral Given 03/03/231803) HYDROcodone-acetaminophen (NORCO) 5-325 mg per tablet 1 tablet (1 tablet oral Given 03/03/231802) phenazopyridine (PYRIDIUM) tablet 190 mg (190 mg oral Given 03/03/231802) ED Pre-Disposition Vitals: Vitals: 03/03/23 1724 BP: (!) 140/94 Pulse: 94 Resp: 16 Temp: 36.3 C (97.4 F) SpO2: 97% Medical Decision Making, ED Course MDM: Medical Decision Making Patient is awake, alert, nontoxic in appearance Afebrile, nontoxic though appears uncomfortable. Multiple diagnoses considered but not limited to cystitis, complicated UTI, STI, PID, ureteral stone Patient has no significant abdominal tenderness, denies any back pain or flank pain. She denies any gross hematuria No history of stones Considered CT imaging though no clinical indication at this time. Urine concerning for infection, will initiate Keflex, Azo Admission/observation considered though no clinical indication at this time, she is tolerating oral intake, hemodynamically stable. I discussed the importance of following up as an outpatient. Please see ED Course below for updates regarding ED results and course of the ED visit. ED Course: Clinical Impressions as of 03/03/232151 Acute cystitis without hematuria ED Prescriptions: ED Prescriptions Medication Sig Dispense Start Date End Date Auth. Provider cephalexin (KEFLEX) 500 mg capsule Take 1 capsule (500 mg total) by mouth 3 (three) times a day for 7 days. 21 each 03/03/2023 03/10/2023 Christi Morgan MD phenazopyridine (PYRIDIUM) 200 mg tablet Take 1 tablet (200 mg total) by mouth 3 (three) times a day for 2 days. 6 tablet 03/03/2023 03/05/2023 Christi Morgan MD Disposition: Discharge Condition: Stable Diagnosis / Impression: Final diagnoses: [N30.00] Acute cystitis without hematuria Physician Attestation Electronically signed by MD Christi Chavez MD 03/03/232156 Christi Morgan MD 03/03/232157 documented in this encounter [facility] Evaluation note Note Date & Type Note Facility Evaluation note Diagnosis Acute cystitis without hematuria- Primary documented in this encounter [facility] Evaluation note Note Date & Type Note Facility Evaluation note No assessment information availa ble [facility] Work Phone: Evaluation note Note Date & Type Note Facility Evaluation note Diagnosis Face pain- Primary Headache documented in this encounter [facility] Hospital Discharge instructions Attachments Note Date & Type Note Facility Hospital Discharge instructions The following attachments cannot be sent through Care Everywhere.UTI (Urinary Tract Infection): Female (Algerian)documented in this encounter [facility] Reason for referral (narrative) Note Date & Type Note Facility Reason for referral (narrative) No reason for referral information available [facility] Work Phone: Summary Purpose Family History Relationship Condition Age at Onset Recorded Date/T ángel grandmother Malignant neoplasm of breast Unknown father Cardiac disease Unknown Myocardial infarction Unknown mother Pulmonary embolism Unknown Advance Directives No Advanced Directives Records FoundNo Advanced Directives Records FoundNo Advanced Directives Records FoundNo Advanced Directives Records FoundNo Advanced Directives Records Found Chief Complaint and Reason for Visit Chief Complaint SCREENING Chief Complaint Admit Date HYPERTENSION March 24, 2024 6:51am HYPERTENSION March 24, 2024 8:10am Moderate Plaque Formation (Raphael) Fe2024 12:57pm CAD/ASHD June 13, 2024 11: 06am CAD/ASHD June 17, 2024 2:4 2pm SCREENING June 20, 2024 9:3 3am Reason for Visit Admit Date CAD (coronary artery disease) May 042024 12:57pm Hyperlipidemia May 23, 2024 12:57pm Hypertension May 23, 2024 12:57pm Additional Source Comments INFORMATION SOURCE (unrecogn ized section and content) DATE CREATED AUTHOR 07/28/2022 [facility] ([place]) DATE CREATED AUTHOR AUTHOR'S ORGANIZ ATION 01/20/2023 [facility] DATE CREATED AUTHOR AUTHOR'S ORGANIZ ATION 08/16/2023 [facility] DATE CREATED AUTHOR AUTHOR'S ORGANIZ ATION 08/22/2023 [facility] DATE CREATED AUTHOR AUTHOR'S ORGANIZ ATION 06/29/2024 [facility] Reason for Visit (unrecogniz ed section and content) Reason Comments Female Dysuria Pt having burning w/ urination, frequency that started last night. Reason Comments mouth pain Ordered Prescriptions (unrec ognized section and content) Prescription Sig Dispensed Refills Start Date End Da te phenazopyridine (PYRIDIUM) 200 mg tablet Take 1 tablet (200 mg total) by mouth 3 (three) times a day for 2 days. 6 tablet 0 03/03/2023 03/05/2023 cephalexin (KEFLEX) 500 mg capsule Take 1 capsule (500 mg total) by mouth 3 (three) times a day for 7 days. 21 each 0 03/03/2023 03/10/2023 Prescription Sig Dispensed Refills Start Date End Da te oxyCODONE-acetaminophen (PERCOCET) 5-325 mg per tablet Take 1 tablet by mouth every 6 (six) hours if needed for severe pain for up to 3 days. Max Daily Amount: 4 tablets 12 tablet 08/20/2023 08/23/2023 Scheduled Active and Recently Administ ered Medications (unrecognized section and content) Medication Order 03/01/2023 03/02/2023 03/03/2023 cephalexin (KEFLEX) capsule 500 mg (COMPLETED) 500 mg, oral, Once, On 03/03/23 at 1758, For 1 dose, Indication: Urinary Tract/Genitourinary 1803 (Given - Provid er: Ariel De Dios RN) HYDROcodone-acetaminophen (NORCO) 5-325 mg per tablet 1 tablet (COMPLETED) 1 tablet, oral, Once, On 03/03/23 at 1758, For 1 dose 1802 (Given - Provid er: Ariel De Dios RN) phenazopyridine (PYRIDIUM) tablet 190 mg (COMPLETED) 190 mg, oral, Once, On 03/03/23 at 1758, For 1 dose 180 (Given - Provid er: Ariel De Dios RN) Scheduled Medication Order 08/18/2023 08/19/2023 08/20/2023 oxyCODONE-acetaminophen (PERCOCET) 5-325 mg per tablet 1 tablet (COMPLETED) 1 tablet, oral, Once, On 08/20/23 at 1715, For 1 dose 172 (Given - Provid er: Solange Cheek RN) Care Teams (unrecognized sec tion and content) Teletype Or Varitype Keyboard Operator Relationship Specialty Start Date End Date Bertha Alfaro NP [address] [place] [phone] PCP - General Nurse Practitioner 03/03/23 Team Status: Active Member Role Status Dates Dr. Nathanael Joyner MD Family Provider Active [facility] Primary Care Provider A ctive Team Status: Inactive Member Role Status Dates [facility] Primary Care Provider A ctive Blanquita Lim DIRECTOR RELIGIOUS EDUCATION, DIRECTOR RELIGIOUS EDUCATION-C Attending Provider, Referrin g Provider Active Teletype Or Varitype Keyboard Operator Relationship Specialty Start Date End Date Bertha Alfaro NP [address] [place] [phone] PCP - General Nurse Practitioner 03/03/23 Team Status: Active Member Role Status Dates Blanquita Lim VSC, DIRECTOR RELIGIOUS EDUCATION-C Primary Care Provider Activ e Team Status: Inactive Member Role Status Dates Blanquita Lim VSC, DIRECTOR RELIGIOUS EDUCATION-C Primary Care Provider Activ e Start: March 24, 2024 End: March 24, 2024 Blanquita Lim VSC, DIRECTOR RELIGIOUS EDUCATION-C Attending Provider Active Start: March 24, 2024 End: March 24, 2024 Blanquita Lim VSC, DIRECTOR RELIGIOUS EDUCATION-C Referring Provider Active Start: March 24, 2024 End: March 24, 2024 Team Status: Active Member Role Status Dates Blanquita Lim VSC, DIRECTOR RELIGIOUS EDUCATION-C Primary Care Provider Activ e Start: March 24, 2024 Blanquita Lim VSC, DIRECTOR RELIGIOUS EDUCATION-C Referring Provider Active Start: March 24, 2024 Blanquita Lim VSC, DIRECTOR RELIGIOUS EDUCATION-C Other Provider Active Start: March 24, 2024 Dr. Jhon Caldwell MD Attending Provider Active S tart: March 24, 2024 Team Status: Inactive Member Role Status Dates Blanquita Lim VSC, DIRECTOR RELIGIOUS EDUCATION-C Primary Care Provider Activ e Start: May 23, 2024 End: May 23, 2024 Blanquita Lim VSC, DIRECTOR RELIGIOUS EDUCATION-C Referring Provider Active Start: May 23, 2024 End: May 23, 2024 Dr. Javier Morales MD Attending Provider Active Start: May 23, 2024 End: May 23, 2024 Team Status: Inactive Member Role Status Dates Blanquita Raphael LIU, DIRECTOR RELIGIOUS EDUCATION-C Primary Care Provider Activ e Start: June 13, 2024 End: June 13, 2024 Dr. Javier Morales MD Attending Provider Active Start: June 13, 2024 End: June 13, 2024 Dr. Javier Morales MD Referring Provider Active Start: June 13, 2024 End: June 13, 2024 Team Status: Active Member Role Status Dates Blanquitahelena SANTANAC, DIRECTOR RELIGIOUS EDUCATION-C Primary Care Provider Activ e Start: June 17, 2024 Dr. Javier Morales MD Referring Provider Active Start: June 17, 2024 Dr. Javier Morales MD Other Provider Active St art: June 17, 2024 Dr. Vijay Mcclelland MD Attending Provider Activ e Start: June 17, 2024 Team Status: Active Member Role Status Dates Blanquitahelena Lim VSC, DIRECTOR RELIGIOUS EDUCATION-C Primary Care Provider Activ e Start: June 20, 2024 Blanquita Lim VSC, DIRECTOR RELIGIOUS EDUCATION-C Attending Provider Active Start: June 20, 2024 Blanquita Lim VSC, DIRECTOR RELIGIOUS EDUCATION-C Referring Provider Active Start: June 20, 2024 Team Status: Inactive Member Role Status Dates Blanquita Lim VSC, DIRECTOR RELIGIOUS EDUCATION-C Primary Care Provider Activ e Start: June 20, 2024 End: June 20, 2024 Blanquita Lim VSC, DIRECTOR RELIGIOUS EDUCATION-C Attending Provider Active Start: June 20, 2024 End: June 20, 2024 Blanquita Lim VSC, DIRECTOR RELIGIOUS EDUCATION-C Referring Provider Active Start: June 20, 2024 End: June 20, 2024 Goals (unrecognized section and content) Goals may be documented in a n alternate sectionGoals may be documented in an alternate sectionGoals may be documented in an alternate section FOR RECORDS PERTAINING TO PATIENTS WHO ARE OR HAVE BEEN ENROLLED IN A CHEMICAL DEPENDENCY/SUBSTANCEABUSE PROGRAM, SOME INFORMATION MAY BE OMITTED. This clinical summary was aggregated from multiple sources. Caution should be exercised in using it in the provision of clinical care. This summary normalizes information from multiple sources, and as a consequence, information in this document may materially change the coding, format and clinical context of patient data. In addition, data may be omitted in some cases. CLINICAL DECISIONS SHOULD BE BASED ON THE PRIMARY CLINICAL RECORDS. [facility]. provides no warranty or guarantee of the accuracy or completeness of information in this document.
== END | disposition home or self-care (01) ==
PROVIDERS: Internal Medicine Cardiovascular Disease; PCP Nurse Practitioner Family; Visit Provider Nurse Practitioner Family
DX: Z13.1 Encounter for screening for diabetes mellitus (principal); R94.6 Abnormal results of thyroid function studies; E78.5 Hyperlipidemia, unspecified; I10 Essential (primary) hypertension
CPT/HCPCS: 36415; 80053; 80061; 82248; 83036; 84439; 84443; 85025

== ENCOUNTER 2024-10-06 09:09 | Observation (INO) | payer MEDICAID, SELFPAY ==
[2024-10-06] VITALS (10 sets, daily range): BP systolic 112–134; BP diastolic 74–86; PULSE 64–96; RESP 15–18; TEMP 36.6–37.1; O2SAT 96–99
--- NOTE | 2024-10-06 09:20 | CT_ITS ---
PROCEDURE: ABDOMEN/PELVIS W IV CONT ONLY 10/06/2024 REASON FOR EXAM: ABDOMINAL PAIN TECHNIQUE: ABDOMEN/PELVIS W IV CONT ONLY Coronal and Sagittal reconstruction series were provided. CONTRAST: Isovue-300 VOLUME: 94 mL One or more dose reduction techniques were used (e.g., Automated exposure control, adjustment of the mA and/or kV according to patient size, use of iterative reconstruction technique. RADIATION DOSE SUMMARY: CTDlvol: 9.97 in 20.0 mGy DLP: 1059.26 mGycm COMPARISON: None. FINDINGS: Lung bases: Sub segmental ground-glass airspace disease in the left lower lobe. Bilateral dependent atelectasis. The liver, spleen, pancreas, adrenals and kidneys are unremarkable. Gallbladder: Large peripheral calcified stone in the gallbladder Urinary bladder and reproductive organs are unremarkable. Bowel: No acute process. Normal caliber and appearance. Appendix: Normal caliber and appearance. Lymph nodes: No adenopathy. Vasculature: Minimal scattered calcific plaque Peritoneum / Retroperitoneum: No free air or free fluid. Bones: No aggressive bone lesion. CT/Abdomen/Pelvis W IV Cont ONLY IMPRESSION: No CT evidence of acute process in the abdomen or pelvis. Reading [facility]
--- NOTE | 2024-10-06 09:26 | EX.ED.DYSGE1 ---
HPI History of Present Illness Chief Complaint: Abd Pain Narrative Narrative: Chief complaint and HPI: Abdominal pain and nausea. 54-year-old female with past medical history of reported 3 kidneys, HTN, GERD, HLD presents for evaluation of abdominal pain and nausea. Patient states for the past 2 weeks she has felt unwell. States it started with URI symptoms and a cough. States that this resolved and now she has had general abdominal pain, nausea, decreased appetite, diarrhea. She states that her taste is different and that she often feels full. Patient states maybe it is my gallbladder. Denies any fever, chills, shortness of breath, chest pain, emesis, dysuria. Review of systems: See HPI Medications: As listed on the chart Allergies: As listed on the chart PFSH: Per chart Vital signs: As listed on the chart. Reviewed. Physical exam: Gen: A&O x3, NAD Head: Normocephalic, atraumatic Eyes: No sclera icterus, conjunctiva clear ENT: Moist mucous membranes Neck: Trachea midline, No JVD CV: RRR, no murmurs, no peripheral edema Resp: Lungs CTA BL, no w/r/c GI: Abd soft, non-distended, mildly tender to palpation diffusely, no r/r/g : No CVA tenderness Musc: Full ROM, no deformity Skin: Warm, dry Neuro: Alert, oriented, grossly intact, sensation intact Psych: Cooperative, appropriate mood and affect [facility] Medical History Hyperlipidemia Wears hearing aid Post-menopausal History of steroid therapy Gastric reflux Non-smoker History of edema History of stress test Hypertension History of broken leg Kidney anomaly, congenital (~09/10/23) History of kidney problems delivery delivered Home Medications ?Medication ?Instructions ?Recorded ?Last Taken ?Type cholecalciferol (vitamin D3) 50 100 mcg PO QDAY 07/13/23 10/10/23 History mcg (2,000 unit) capsule (Vitamin D3) lisinopril 40 mg tablet 40 mg PO QDAY 07/13/23 10/11/23 History omeprazole 20 mg capsule,delayed 20 mg PO QDAY 07/13/23 10/11/23 History release vitamin E (dl, acetate) 180 mg 180 mg PO QDAY 07/13/23 10/10/23 History (400 unit) capsule aspirin 81 mg chewable tablet 1 tab PO DAILY 10/02/23 10/10/23 History (Nuvia Chewable Low Dose Aspirin) cranberry 500 mg capsule 500 mg PO DAILY 10/02/23 10/10/23 History fluticasone propionate 50 2 spray intranasal DAILY 04/29/24 Unknown History mcg/actuation nasal spray,suspension amlodipine 10 mg tablet 10 mg PO QDAY 05/23/24 Unknown History atorvastatin 10 mg tablet 10 mg PO QHS 10/06/24 Unknown History cephalexin 500 mg capsule 500 mg PO Q12 #14 CAPSULES 10/06/24 Unknown Rx simvastatin 20 mg tablet 20 mg PO QHS 10/06/24 Unknown History Allergy/AdvReac Type Severity Reaction Status Date / Time bee venom protein (honey bee) Allergy Severe Anaphylaxis Verified 10/06/24 09:11 Sulfa (Sulfonamide Allergy Severe Anaphylaxis Verified 10/06/24 09:11 Antibiotics) Family History Grandmother Breast cancer Father Heart disease Myocardial infarction Mother Pulmonary embolism Social History Smoking Status: Never smoker alcohol intake: never substance use type: does not use EXAM Physical Exam Const Vital Signs: 10/06/24 09:10 10/06/24 11:09 10/06/24 13:00 Temperature 98 F 98.7 F Temperature Source Oral Oral Pulse Rate 95 86 77 Respiratory Rate 16 16 Blood Pressure 115/78 124/86 H 125/80 H Blood Pressure Mean 90 98 95 Pulse Ox 97 96 Oxygen Delivery Method Room Air Room Air 10/06/24 15:00 Temperature Temperature Source Pulse Rate 64 Respiratory Rate 18 Blood Pressure 134/78 H Blood Pressure Mean 96 Pulse Ox 98 Oxygen Delivery Method Room Air MDM MDM MDM Narrative Medical decision making narrative: 54-year-old female with past medical history of reported 3 kidneys, HTN, GERD, HLD presents for evaluation of abdominal pain and nausea. Patient states 2 weeks ago she developed URI symptoms that resolved. Since then she has had generalized abdominal pain, nausea, decreased appetite, diarrhea. Also endorses taste changes. See physical exam findings. On presentation, patient is no acute distress. Vitals are stable. Differential diagnosis includes but is not limited to viral illness, COVID-19 infection, electrolyte abnormality, dehydration, colitis, cholecystitis, pancreatitis. Zofran and NS bolus ordered. Patient states her pain is minimal and declined pain. Laboratory workup ordered including CT abdomen pelvis. CBC without leukocytosis or anemia. Platelets unremarkable. CMP without MANNY. Patient has transaminitis with an AST of 458 and an ALT of 400. These have significantly increased from August 2024 on chart review. Direct bilirubin mildly elevated at 3.6. Alkaline phosphatase normal. Lipase unremarkable. UA positive for UTI. Urine cultures sent and Keflex prescribed. CT abdomen pelvis shows no acute process of the abdomen or pelvis. Patient does not have 3 kidneys. Gallbladder does have a large peripheral calcified stone but otherwise is unremarkable. On reevaluation, patient not endorsing any epigastric or right upper quadrant pain. Her abdominal exam is benign. However given the significant transaminitis will obtain ultrasound of the abdomen. Ultrasound of the abdomen shows multiple gallstones otherwise no unremarkable. Patient has fatty infiltration of the liver. No clear etiology for the patient's transaminitis at this time however patient is on atorvastatin which may be the cause of her transaminitis. Given her transaminitis, Dr. Mckeon was consulted with GI and patient was discussed. Concerned that her transaminitis may be secondary to statin and concern for possible rhabdomyolysis as the cause of her transaminitis. Recommended LDH and CPK. Patient had a delayed stay at emergency department secondary to labs taking a while to result. I did call the lab multiple times about the LDH and CPK. Patient was informed to wait. LDH elevated at 1314. CPK elevated at 5727. Patient is in rhabdomyolysis likely secondary to statin therapy. Another NS bolus ordered. Patient will warrant admission. She was updated on results and confirmed understanding of plan. I spoke with the hospitalist service who accepted admission. Impression: 1. Rhabdomyolysis likely secondary to statin therapy 2. Transaminitis secondary to #1 3. UTI Lab Data Labs: Laboratory Results - last 24 hr 10/06/24 10/06/24 09:35 09:55 WBC 6.4 RBC 4.46 Hgb 13.7 Hct 41.7 MCV 93.5 MCH 30.7 MCHC 32.9 RDW Std Deviation 52.3 H RDW Coeff of Micheal 15.0 H Plt Count 247 MPV 11.6 Immature Gran % (Auto) 0.200 Neut % (Auto) 75.3 H Lymph % (Auto) 7.6 L [place] % (Auto) 5.9 Eos % (Auto) 10.4 H Baso % (Auto) 0.6 Absolute Neuts (auto) 4.9 Absolute Lymphs (auto) 0.49 L Nucleated RBC % 0 Sodium 139 Potassium 3.6 Chloride 103 Carbon Dioxide 24.7 Anion Gap 11 BUN 8 Creatinine 0.51 L Estim Creat Clear Calc 146.05 Est GFR (MDRD) Non-Af 110 BUN/Creatinine Ratio 15.1 Glucose 110 H Calcium 8.9 Total Bilirubin 0.75 Direct Bilirubin 0.36 H AST 458 H ALT 404 H Alkaline Phosphatase 56 Lactate Dehydrogenase 1314 H Total Creatine Kinase 5727 H Total Protein 6.1 Albumin 3.5 Globulin 2.6 Lipase 28 Urine Color Olga Lidia Urine Clarity Sl. Cloudy Urine pH 6.0 Ur Specific [place] 1.020 Urine Protein 30 H Urine Glucose (UA) Normal Urine Ketones Negative Urine Occult Blood 150 H Urine Nitrite Positive H Urine Bilirubin Negative Urine Urobilinogen 1 H Ur Leukocyte Esterase 100 H Urine RBC 5-10 SEEN Urine WBC 10-25 SEEN Ur Squamous Epith Cells 5-10 SEEN Urine Bacteria 3+ Hyaline Casts 0-5 SEEN Urine Mucus 0 SEEN Radiography Diagnostic Testing: Clinical Impression(s) from Imaging Studies Abdomen/Pelvis CT 10/06/24 09:20 IMPRESSION: No CT evidence of acute process in the abdomen or pelvis. Reading Location: [facility] Abdomen Ultrasound 10/06/24 12:09 IMPRESSION: Multiple gallstones. Fatty infiltration of the liver. Reading Location: [place] [address] Discharge Plan Triage Chief Complaint: Abd Pain ED Provider: Will Silveira Dx/Rx/DC Orders Clinical Impression: UTI (urinary tract infection) Instructions: ED UTIs Women Prescriptions: New cephalexin 500 mg capsule 500 mg PO Q12 Qty: 14 0RF No Action lisinopril 40 mg tablet 40 mg PO QDAY omeprazole 20 mg capsule,delayed release(DR/EC) 20 mg PO QDAY cholecalciferol (vitamin D3) [Vitamin D3] 50 mcg (2,000 unit) capsule 100 mcg PO QDAY vitamin E (dl, acetate) 180 mg (400 unit) capsule 180 mg PO QDAY fluticasone propionate 50 mcg/actuation spray,suspension 2 spray intranasal DAILY amlodipine 10 mg tablet 10 mg PO QDAY cranberry 500 mg capsule 500 mg PO DAILY Rx Instructions: administer with a meal aspirin [Nuvia Chewable Aspirin] 81 mg tablet,chewable 1 tab PO DAILY atorvastatin 10 mg tablet 10 mg PO QHS simvastatin 20 mg tablet 20 mg PO QHS Primary Care Provider: Blanquita Lim Referrals: Blanquita Lim, AUTOMAT[employer] SCREWMAKER-C [Primary Care Provider] - 3-5 Days Print Language: Telugu Disposition Disposition: Home, Self Care
[2024-10-06] MEDS: 0.9% Normal Saline (1000mL) 1,000 ML 999 ML IV (09:42)
[2024-10-06 09:47] LABS: Hematocrit 41.7 % (37-47); Hemoglobin 13.7 g/dL (12.0-15.0); Immature Granulocytes Count 0.010 X10^3/uL (0.0-0.0); Mean Corp Hgb Conc 32.9 g/dL (32-36); Mean Corpuscular Volume 93.5 fL (81-99); Mean Platelet Vol. 11.6 fl (6.2-12.0); NRBC Flagged by Analyzer 0 % (0-5); POSITIVE DIFFERENTIAL YES; Platelet Count 247 K/mm3 (150-450); RBC Distribution Width CV 15.0 % (11.6-14.6); RBC Distribution Width SD 52.3 fl (35.1-43.9); Red Blood Count 4.46 M/mm3 (4.2-5.4); White Blood Count 6.4 K/mm3 (4.4-11.0)
[2024-10-06 10:10] LABS: Mucous, Urine 0 SEEN /hpf (<or=2+)
[2024-10-06 10:22] LABS: Color, Urine Amber (Yellow); Glucose, Dipstick Normal (Normal); Ketone-Dipstick Negative (Negative); Leukocyte Esterase-Dipstick 100 /ul (Negative); Nitrite-Dipstick Positive (Negative); Occult Blood-Urine 150 /ul (Negative); Protein-Dipstick 30 mg/dl (Negative); Specific Gravity, Urine 1.020 (1.002-1.030); Urine Bilirubin Dipstick Negative (Negative)
[2024-10-06 10:23] LABS: AST(SGOT) 458 U/L (<=31); Alanine Aminotransfer ALT/SGPT 404 U/L (<=34); Albumin, Serum 3.5 g/dL (3.5-5.0); Alkaline Phosphatase 56 U/L (35-104); Anion Gap 11 (5-15); BUN 8 mg/dL (4-19); BUN/Creat Ratio 15.1 RATIO (10-20); Bilirubin, Direct 0.36 mg/dL (0.00-0.30); Calcium,Total 8.9 mg/dL (7.6-11.0); Carbon Dioxide 24.7 mmol/L (21.0-32.0); Chloride 103 mmol/L (98-108); Estimated Creatinine Clearance 146.05 ml/min (50-250); Globulin 2.6 g/dL (2.2-4.2); Glucose 110 mg/dL (70-99); Lipase 28 U/L (13-75); Potassium 3.6 mmol/L (3.3-5.1)
[2024-10-06 10:49] LABS: Red Blood Cells-Urine 5-10 SEEN /hpf (0-5)
[2024-10-06 10:50] LABS: Squamous Epithelial Cells - UA 5-10 SEEN /hpf (5-10)
--- NOTE | 2024-10-06 12:09 | US_ITS ---
PROCEDURE: ABDOMEN LIMITED 10/06/2024 REASON FOR EXAM: ELEVATED LIVER ENZYMES, ASSESS FOR LIVER/GALLBLADD COMPARISON: Prior CT scan of the abdomen and pelvis done earlier in the day. FINDINGS: Liver: Fatty infiltration of the liver. The liver is not enlarged. It measures 16.2 cm. Gallbladder: Multiple gallstones are seen. Gallbladder wall is not thickened. Common bile duct: Normal measuring 4 mm. . Pancreas: Normal Other: Visualized portions of the right kidney are unremarkable. No right upper quadrant ascites. US/Abdomen Limited IMPRESSION: Multiple gallstones. Fatty infiltration of the liver. Reading Location: [place] [address]
[2024-10-06 15:22] LABS: CPK Total, Creatine Kinase 5727 U/L (24-195)
[2024-10-06 15:35] LABS: LDH 1314 U/L (84-246)
[2024-10-06] MEDS: 0.9% Normal Saline (1000mL) 1,000 ML 1000 ML IV (16:38)
--- NOTE | 2024-10-06 17:27 | PCM.HP.STD ---
HPI - General General Date of Admission: 10/06/24 Date of Service: 10/06/24 Chief Complaint: Weakness, fatigue, aching muscles HPI Narrative ERI MEMBRENO, is a 54-year-old female history of GERD, hypertension, hyperlipidemia who presented to [facility] ED 10/06/2024 with abdominal pain and nausea. She has felt unwell for 2 weeks and notes that started with URI symptoms and a cough but that has now resolved and she has been having general abdominal pain, nausea, decreased appetite and diarrhea and also feels her taste is different than usual and she has early satiety. No fevers or chills, shortness of breath, chest pain, emesis, dysuria. In the ED temp 98, heart rate 95 blood pressure 115/78, respiratory rate 16 and pulse ox 97% on room air. CBC with white blood cell count 6.4 and hemoglobin 13.7. BMP with normal kidney function and no electrolyte abnormalities. Lipase of 28. LFTs did reveal a total bili of 0.75 with a direct bili of 0.36, AST 458 and ALT of 404 with normal alk phos. UA with nitrate, leuk esterase, blood cells and 3+ bacteria. COVID and flu negative. CTA of the abdomen and pelvis with no acute process and abdominal ultrasound with multiple gallstones and fatty infiltration of the liver but normal common bile duct, no thickening gallbladder wall, and liver is not enlarged. CK noted to be 5700, LDH 1300. Given abnormal labs and persistent symptoms hospitalist contacted for admission. Patient evaluated at bedside. She reports that for the past 2 to 3 weeks she has had significant fatigue and weakness and muscle aches. She has had some intermittent abdominal pain as well the worst of which was on Sunday and is felt nauseated particularly with eating, had diarrhea as well though this is slowly becoming more formed. Does note that she had a sinus infection several weeks ago and finished Augmentin and azithromycin but has not been on these for couple of weeks. Denies fevers but reports she does get some chilled feeling. No present chest pain or shortness of breath, has some chronic swelling in right lower extremity after she broke it. Denies any changes in urination. Reports she has been lightheaded twice over the past couple of weeks as well but none today, at present actually feeling little bit better [facility] Medical History Hyperlipidemia Wears hearing aid Post-menopausal History of steroid therapy Gastric reflux Non-smoker History of edema History of stress test Hypertension History of broken leg Kidney anomaly, congenital (~09/10/23) History of kidney problems delivery delivered Home Medications ?Medication ?Instructions ?Recorded ?Last Taken ?Type cholecalciferol (vitamin D3) 50 100 mcg PO QDAY 07/13/23 10/10/23 History mcg (2,000 unit) capsule (Vitamin D3) lisinopril 40 mg tablet 40 mg PO QDAY 07/13/23 10/11/23 History omeprazole 20 mg capsule,delayed 20 mg PO QDAY 07/13/23 10/11/23 History release vitamin E (dl, acetate) 180 mg 180 mg PO QDAY 07/13/23 10/10/23 History (400 unit) capsule aspirin 81 mg chewable tablet 1 tab PO DAILY 10/02/23 10/10/23 History (Nuvia Chewable Low Dose Aspirin) cranberry 500 mg capsule 500 mg PO DAILY 10/02/23 10/10/23 History fluticasone propionate 50 2 spray intranasal DAILY 04/29/24 Unknown History mcg/actuation nasal spray,suspension amlodipine 10 mg tablet 10 mg PO QDAY 05/23/24 Unknown History atorvastatin 10 mg tablet 10 mg PO QHS 10/06/24 Unknown History cephalexin 500 mg capsule 500 mg PO Q12 #14 CAPSULES 10/06/24 Unknown Rx simvastatin 20 mg tablet 20 mg PO QHS 10/06/24 Unknown History Allergy/AdvReac Type Severity Reaction Status Date / Time bee venom protein (honey bee) Allergy Severe Anaphylaxis Verified 10/06/24 09:11 Sulfa (Sulfonamide Allergy Severe Anaphylaxis Verified 10/06/24 09:11 Antibiotics) Family History Grandmother Breast cancer Father Heart disease Myocardial infarction Mother Pulmonary embolism Social History Smoking Status: Never smoker alcohol intake: never substance use type: does not use ROS ROS Narrative General: Sometimes will feel hot and cold but no overt fever HENT: Denies headache, did have sinus infection with the symptoms improved EYES: Denies changes in vision Resp: Denies cough, denies shortness of breath Cardiac: Denies chest pain GI: Has had some intermittent general abdominal pain, and it is worse on Sunday and nausea especially with eating resulting in poor p.o. intake, had been having diarrhea though this is slowly becoming more formed : Denies changes in urination Extremity: Some chronic right lower extremity swelling MSK: Generalized weakness, fatigue, muscle cramps and aching Neuro: Denies any numbness/tingling Heme: Denies any bleeding or bruising Skin: Denies rashes Psychiatric: No complaints voiced Vital Signs Vital Signs Vital Signs: 10/06/24 09:10 10/06/24 11:09 10/06/24 13:00 Temperature 98 F 98.7 F Temperature Source Oral Oral Pulse Rate 95 86 77 Respiratory Rate 16 16 Blood Pressure 115/78 124/86 H 125/80 H Blood Pressure Mean 90 98 95 Pulse Ox 97 96 Oxygen Delivery Method Room Air Room Air 10/06/24 15:00 10/06/24 16:33 10/06/24 16:57 Temperature 98.2 F 98.1 F Temperature Source Oral Pulse Rate 64 81 78 Respiratory Rate 18 17 15 Blood Pressure 134/78 H 117/76 112/74 Blood Pressure Mean 96 89 86 Pulse Ox 98 96 99 Oxygen Delivery Method Room Air Room Air Weight Weight: 89.721 kg Body Mass Index (BMI) 30.0 Physical Exam Narrative General: Alert, oriented, no apparent distress HEENT: Atraumatic, normocephalic Eyes: Anicteric, normal conjunctiva, extraocular movements grossly intact Neck: Supple Respiratory: Clear to auscultation bilaterally, normal respiratory effort Cardiovascular: Regular rate and rhythm GI: Soft, nontender, nondistended Extremities: Some edema in right lower extremity which she reports is chronic Musculoskeletal: Moving all extremities Neuro: No overt focal neurological deficits Skin: Some bilateral lower extremity chronic skin changes Psych: Cooperative Results Lab / Micro Data 10/06/24 09:35 10/06/24 09:35 Labs: Laboratory Results - last 24 hr 10/06/24 09:35: WBC 6.4, RBC 4.46, Hgb 13.7, Hct 41.7, MCV 93.5, MCH 30.7, MCHC 32.9, RDW Std Deviation 52.3 H, RDW Coeff of Micheal 15.0 H, Plt Count 247, MPV 11.6, Immature Gran % (Auto) 0.200, Neut % (Auto) 75.3 H, Lymph % (Auto) 7.6 L, [place] % (Auto) 5.9, Eos % (Auto) 10.4 H, Baso % (Auto) 0.6, Absolute Neuts (auto) 4.9, Absolute Lymphs (auto) 0.49 L, Nucleated RBC % 0, Sodium 139, Potassium 3.6, Chloride 103, Carbon Dioxide 24.7, Anion Gap 11, BUN 8, Creatinine 0.51 L, Estim Creat Clear Calc 146.05, Est GFR (MDRD) Non-Af 110, BUN/Creatinine Ratio 15.1, Glucose 110 H, Calcium 8.9, Total Bilirubin 0.75, Direct Bilirubin 0.36 H, AST 458 H, ALT 404 H, Alkaline Phosphatase 56, Lactate Dehydrogenase 1314 H, Total Creatine Kinase 5727 H, Total Protein 6.1, Albumin 3.5, Globulin 2.6, Lipase 28 10/06/24 09:55: Urine Color Olga Lidia, Urine Clarity Sl. Cloudy, Urine pH 6.0, Ur Specific [place] 1.020, Urine Protein 30 H, Urine Glucose (UA) Normal, Urine Ketones Negative, Urine Occult Blood 150 H, Urine Nitrite Positive H, Urine Bilirubin Negative, Urine Urobilinogen 1 H, Ur Leukocyte Esterase 100 H, Urine RBC 5-10 SEEN, Urine WBC 10-25 SEEN, Ur Squamous Epith Cells 5-10 SEEN, Urine Bacteria 3+, Hyaline Casts 0-5 SEEN, Urine Mucus 0 SEEN Micro: Microbiology 10/06/24 09:55 Mucosa - Nose SARS-CoV-2, Influenza & RSV (PCR) - Final Imaging Radiology Impression Abdomen/Pelvis CT 10/06/24 09:20 IMPRESSION: No CT evidence of acute process in the abdomen or pelvis. Reading Location: [facility] Abdomen Ultrasound 10/06/24 12:09 IMPRESSION: Multiple gallstones. Fatty infiltration of the liver. Reading Location: [facility] Assessment & Plan Assessment/Plan (1) UTI (urinary tract infection): (2) Elevated LFTs: (3) Elevated CPK: PLAN: Plan # Abdominal pain/nausea/diarrhea -CT abdomen no acute process -Does have elevated LFTs but imaging only reveals fatty infiltration of liver with no acute process -COVID-negative - Given stool is beginning to firm and is not necessarily diarrhea anymore we will hold off on any stool studies -Will check hepatitis panel -Will treat UTI as this could be a cause or contributor of symptoms -IV fluids -Supportive care -TSH - Transitional diet # Elevated CPK and LDH - Concern for rhabdo potentially due to statin, was on atorvastatin and seems to now be on simvastatin, both are listed on med list but will need to clarify what she is taking, has not filled atorvastatin for months, did recently fill the simvastatin however - CK was 5700 with an elevated LDH and elevated liver function tests - IV fluids - Trend CPK and LDH - Trend liver function # Elevated liver function tests -AST of 458 and ALT of 404 - Mild elevation of direct bili 0.36 but total bili within normal limits and alk phos not elevated -Will check hepatitis panel -Repeat in a.m. -Imaging has been fairly benign -Possibly secondary to the above, trend CK and liver function # Abnormal UA with concern for UTI -UA with blood, nitrite, leuk esterase, white blood cells and bacteria -Empiric antibiotics while awaiting culture and sensitivity data #GERD -Continue PPI #Hypertension - BP only 112/74, holding home antihypertensives, add back as tolerated # Hyperlipidemia - Holding home statin #DVT ppx: Lovenox subcu Estrella Gross MD Charges/Coding Visit Charges Inpatient E&M: 06899 Init Hosp L2
[2024-10-06] MEDS: 0.9% Normal Saline (1000mL) 1,000 ML 150 ML IV (19:01)
[2024-10-07] MEDS: 0.9% Normal Saline (1000mL) 1,000 ML 150 ML IV ×4 (02:08→22:35)
[2024-10-07 02:15] VITALS: BP 128/80; PULSE 88; RESP 16; TEMP 36.9; O2SAT 96
[2024-10-07 06:33] LABS: Hematocrit 36.3 % (37-47); Hemoglobin 12.0 g/dL (12.0-15.0); Immature Granulocytes Count 0.020 X10^3/uL (0.0-0.0); Mean Corp Hgb Conc 33.1 g/dL (32-36); Mean Corpuscular Volume 94.8 fL (81-99); Mean Platelet Vol. 11.9 fl (6.2-12.0); NRBC Flagged by Analyzer 0 % (0-5); Platelet Count 222 K/mm3 (150-450); RBC Distribution Width CV 15.2 % (11.6-14.6); RBC Distribution Width SD 52.6 fl (35.1-43.9); Red Blood Count 3.83 M/mm3 (4.2-5.4); White Blood Count 5.7 K/mm3 (4.4-11.0)
[2024-10-07 06:43] LABS: Prothrombin Time (Protime)PT. 15.7 SECONDS (11.7-14.9)
[2024-10-07 07:01] VITALS: PULSE 72
[2024-10-07 07:18] LABS: AST(SGOT) 325 U/L (<=31); Alanine Aminotransfer ALT/SGPT 283 U/L (<=34); Albumin, Serum 2.8 g/dL (3.5-5.0); Alkaline Phosphatase 46 U/L (35-104); Anion Gap 8 (5-15); BUN 6 mg/dL (4-19); BUN/Creat Ratio 13.1 RATIO (10-20); Calcium,Total 8.0 mg/dL (7.6-11.0); Carbon Dioxide 23.0 mmol/L (21.0-32.0); Chloride 108 mmol/L (98-108); Estimated Creatinine Clearance 165.51 ml/min (50-250); Globulin 2.1 g/dL (2.2-4.2); Glucose 102 mg/dL (70-99); LDH 963 U/L (84-246); Potassium 3.3 mmol/L (3.3-5.1)
[2024-10-07 09:10] VITALS: BP 110/73; PULSE 79; RESP 16; TEMP 36.3; O2SAT 95
[2024-10-07] MEDS: Fluticasone 0.05% 1 SPRAY NASAL.SRY 2 SPRAY NASAL (09:15)
[2024-10-07 10:16] LABS: CPK Total, Creatine Kinase 3084 U/L (24-195)
--- NOTE | 2024-10-07 14:09 | CASEMGMT ---
TANIA JESUS Screen: Dx: elevated CK LACE:1 6 Clicks:24 Medical record reviewed and patient evaluated for identification of discharge planning needs. Based on this review, at this time criteria are not present to indicate a need for discharge planning. Will remain available to assist with discharge planning needs as identified or requested.
--- NOTE | 2024-10-07 15:52 | NURSING ---
Pt walking coulter at this time.
[2024-10-07 16:00] VITALS: BP 121/76; PULSE 90; RESP 17; TEMP 36.7; O2SAT 97
--- NOTE | 2024-10-07 16:33 | PCM.PN.HOSP ---
Reason for Visit Reason for Visit: Diagnoses Urinary tract infection, site not specified (10/06/24) Abnormal levels of other serum enzymes (10/06/24) Other specified abnormal findings of blood chemistry (10/06/24) Subjective Subjective Patient was seen and examined today, she does not complain of any abdominal discomfort. CPK and LDH was lower today. I am not sure what is causing the patient's liver enzyme elevation, the CPK elevation may be caused by statin that she was taking for hyperlipidemia. Patient states she does not want to take anything for cholesterol, she has a past history of coronary artery disease according to the medical record, I will have to talk with her tomorrow about perhaps taking Zetia in place of a statin. Patient has no urinary symptoms, she does not want to take Rocephin for her abnormal UA, I have elected to stop antibiotics at this time and observe her. Objective Data Objective Data Vital Signs: Vital Signs Temp Pulse Resp BP Pulse Ox O2 Del Method 98.1 F 90 17 121/76 H 97 Room Air 10/07/24 16:00 10/07/24 16:00 10/07/24 16:00 10/07/24 16:00 10/07/24 16:00 10/07/24 16:00 Oxygen Delivery Method Room Air Weight: 89.7 kg Body Mass Index (BMI) 30.0 Intake & Output: Intake and Output for Last 24 Hours 10/05/24 10/06/24 10/07/24 23:59 23:59 23:59 Intake Total 2500 / 2500 3960 / 3960 Balance 2500 / 2500 3960 / 3960 Lab / Micro Data 10/07/24 05:34 10/07/24 05:34 Labs: Laboratory Results - last 24 hr 10/07/24 05:34: WBC 5.7, RBC 3.83 L, Hgb 12.0, Hct 36.3 L, MCV 94.8, MCH 31.3, MCHC 33.1, RDW Std Deviation 52.6 H, RDW Coeff of Micheal 15.2 H, Plt Count 222, MPV 11.9, Immature Gran % (Auto) 0.400, Neut % (Auto) 64.4, Lymph % (Auto) 12.4 L, [place] % (Auto) 6.9, Eos % (Auto) 15.2 H, Baso % (Auto) 0.7, Absolute Neuts (auto) 3.7, Absolute Lymphs (auto) 0.70 L, Nucleated RBC % 0, PT 15.7 H, INR 1.2, Sodium 139, Potassium 3.3, Chloride 108, Carbon Dioxide 23.0, Anion Gap 8, BUN 6, Creatinine 0.45 L, Estim Creat Clear Calc 165.51, Est GFR (MDRD) Non-Af 114, BUN/Creatinine Ratio 13.1, Glucose 102 H, Calcium 8.0, Total Bilirubin 0.50, AST 325 H, ALT 283 H, Alkaline Phosphatase 46, Lactate Dehydrogenase 963 H, Total Creatine Kinase 3084 H, Total Protein 4.9 L, Albumin 2.8 L, Globulin 2.1 L, Albumin/Globulin Ratio 1.3, TSH 7.560 H Micro: Microbiology 10/06/24 09:55 Urine, Clean Catch Urine Culture - 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 10/06/24 09:55 Mucosa - Nose SARS-CoV-2, Influenza & RSV (PCR) - Final Physical Exam Const alert, oriented x3, no apparent distress and healthy appearing General Appearance: cooperative, well kempt and well developed Orientation / Consciousness: awake, oriented to person, oriented to place and oriented to time HEENT normocephalic, head/scalp atraumatic and moist oral mucous membranes Eyes PERRL, EOMs intact bilaterally and conjunctivae normal Neck supple, no JVD, thyroid normal and no carotid bruits General: trachea midline Resp normal respiratory effort, no retractions, no use of accessory muscles and clear to auscultation bilaterally Auscultation: Negative for rales, rhonchi or wheezes Cardio regular rate, regular rhythm, S1 normal heart sound, S2 normal heart sound, no murmurs, no rub and no gallops GI normal to inspection, nondistended, normoactive bowel sounds, soft to palpation, non-tender and non-distended Extremity no clubbing, cyanosis or edema Skin no rashes or lesions noted General Skin Exam: no breakdown Neuro oriented x3, CN's II-XII intact bilaterally, no focal motor deficits and no sensory deficits noted Sensorium / Orientation: awake and alert Speech: speech normal Psych affect normal Assessment & Plan Assessment/Plan (1) Elevated CPK: PLAN: Plan 1. Rhabdomyolysis-secondary to statin use, lab will be rechecked tomorrow, patient's creatinine remains normal #2 elevated liver function tests-etiology unclear, these appear to be trending downward at this time, patient had a CT of the abdomen as well as an ultrasound, ultrasound did not show the presence of gallstones, I do not think this was causing the elevated liver enzymes. #3 coronary artery disease-again patient will need to take something for her elevated cholesterol, her last LDL cholesterol was 75 while she was taking simvastatin but she was on a small dose. I will discuss placing her on Zetia tomorrow #4 essential hypertension-patient will remain on her present medications for blood pressure, I have elected to cut the dose of her lisinopril and amlodipine due to her normal blood pressure today, I will see if this controls her blood pressure. #5 GERD-patient is on a PPI Total clinical time spent by myself addressing the patient's medical issues, reviewing all of her data, and collaborating with the patient's care team: 35 minutes Charges/Coding Visit Charges Inpatient E&M: 51550 Subs Hosp L2
[2024-10-07 20:30] VITALS: BP 133/85; PULSE 86; RESP 18; TEMP 36.9; O2SAT 98
[2024-10-08] MEDS: 0.9% Normal Saline (1000mL) 1,000 ML 150 ML IV (03:57)
[2024-10-08 04:03] VITALS: BP 118/75; PULSE 83; RESP 18; TEMP 36.3
[2024-10-08 05:07] LABS: HEPATITIS B SURFACE AG Negative (Negative); Hep C Antibodies Non Reactive (Non Reactive)
[2024-10-08 06:57] LABS: AST(SGOT) 316 U/L (<=31); Alanine Aminotransfer ALT/SGPT 295 U/L (<=34); Albumin, Serum 2.7 g/dL (3.5-5.0); Alkaline Phosphatase 47 U/L (35-104); Bilirubin, Direct 0.21 mg/dL (0.00-0.30); Globulin 2.3 g/dL (2.2-4.2)
[2024-10-08 07:10] LABS: CPK Total, Creatine Kinase 3464 U/L (24-195)
[2024-10-08 08:13] VITALS: BP 142/92; PULSE 99; RESP 16; TEMP 36.9; O2SAT 95
--- NOTE | 2024-10-08 08:17 | DCINST_ITS ---
Discharge Instructions Diet Discharge Diet: No restrictions DC O2, CPAP, BIPAP needs Home O2 Discharge instructions: No Dressing / Incision Discharge Activity: Return to Normal Activity Weight Bearing Status: Full weight bearing Follow Up Care Test Results: Test results from this visit will be discussed in further detail at your follow- up appointment, if applicable. Discharge Plan Admission Admit Date/Time: 10/06/24 17:28 Primary Reason for Your Visit: Rhabdomyolysis Attending Provider: Bayron Leal Primary Care Provider: Blanquita Lim Consulting Providers: Estrella Gross Instructions Patient Instructions: ED UTIs Women Discharge Orders/Prescriptions Prescriptions: Continued lisinopril 40 mg tablet 40 mg PO QDAY omeprazole 20 mg capsule,delayed release(DR/EC) 20 mg PO QDAY cholecalciferol (vitamin D3) [Vitamin D3] 50 mcg (2,000 unit) capsule 100 mcg PO QDAY fluticasone propionate 50 mcg/actuation spray,suspension 2 spray intranasal DAILY amlodipine 10 mg tablet 10 mg PO QDAY cranberry 500 mg capsule 500 mg PO DAILY Rx Instructions: administer with a meal Discontinued vitamin E (dl, acetate) 180 mg (400 unit) capsule 180 mg PO QDAY aspirin [Nuvia Chewable Aspirin] 81 mg tablet,chewable 1 tab PO DAILY atorvastatin 10 mg tablet 10 mg PO QHS simvastatin 20 mg tablet 20 mg PO QHS Referrals / Follow Up: Blanquita Lim, MORTGAGE ASSISTANT-C [Primary Care Provider] - In 1 Week (You will need your liver function tests redrawn, a BMP, and a CPK drawn) Disposition Disposition (needs filled in before D/C Order can be placed): Home, Self Care
--- NOTE | 2024-10-08 08:21 | DS.PCM_ITS ---
Providers Date of Admission: 10/06/24 Date of Discharge: 10/08/24 Primary Care Physician: Blanquita Lim [facility], DIALS SUPERVISOR-C Reason For Visit: ELEVATED CK Diagnosis Discharge Diagnosis (1) Elevated CPK: Status: Acute Code(s): R74.8 - Abnormal levels of other serum enzymes Plan 1. Rhabdomyolysis-secondary to statin use, lab will be rechecked tomorrow, patient's creatinine remains normal #2 elevated liver function tests-etiology unclear, these appear to be trending downward at this time, patient had a CT of the abdomen as well as an ultrasound, ultrasound did not show the presence of gallstones, I do not think this was causing the elevated liver enzymes. #3 coronary artery disease-again patient will need to take something for her elevated cholesterol, her last LDL cholesterol was 75 while she was taking simvastatin but she was on a small dose. I will discuss placing her on Zetia tomorrow #4 essential hypertension-patient will remain on her present medications for blood pressure, I have elected to cut the dose of her lisinopril and amlodipine due to her normal blood pressure today, I will see if this controls her blood pressure. #5 GERD-patient is on a PPI Total clinical time spent by myself addressing the patient's medical issues, reviewing all of her data, and collaborating with the patient's care team: 35 minutes Medications at Discharge Home Medications cholecalciferol (vitamin D3) 50 mcg (2,000 unit) capsule (Vitamin D3) 100 mcg PO QDAY 07/13/23 lisinopril 40 mg tablet 40 mg PO QDAY 07/13/23 omeprazole 20 mg capsule,delayed release 20 mg PO QDAY 07/13/23 cranberry 500 mg capsule 500 mg PO DAILY 10/02/23 fluticasone propionate 50 mcg/actuation nasal spray,suspension 2 spray intranasal DAILY 04/29/24 amlodipine 10 mg tablet 10 mg PO QDAY 05/23/24 Hospital Course Operations None Procedures None Summary of Care Provided Minutes Spent on Discharge: 31 Hospital Course: This 54-year-old white female was seen in the emergency room at [facility] with a chief complaint of abdominal pain and nausea. Patient states that for the last 2 weeks prior she had felt unwell, she has a general abdominal pain nausea decreased appetite and diarrhea. Labs obtained showed a normal CBC, chemistry profile was remarkable for an AST of 458, ALT of 404, lactate dehydrogenase at 1314 and a total creatinine kinase of 5724. Urinalysis showed 3+ bacteria, 10-25 WBCs, 5-10 RBCs. Patient's leukocyte Estrace was high at 100. CT of the abdomen and pelvis showed no acute process in the abdomen or pelvis. Abdominal ultrasound was then performed which showed multiple gallstones and fatty infiltration of the liver. Patient was admitted to [place] [id number] for rhabdomyolysis and given IV fluids, liver enzymes trended downward, I had a discussion with Dr. Morales who had seen the patient in his office due to a high coronary calcium score, it was recommended that the patient did take a statin and it was felt that the patient's rhabdomyolysis was probably from statin. I discussed this with the patient and she declined to take any other med for cholesterol. I told her she would need to follow-up with her physician and get a repeat lipid panel off her statin. Dr. Morales recommended that because the calcium heart score was elevated she maintain an LDL cholesterol below 100. Patient had a stress test recently which was unremarkable. On 10/08/2024, patient was seen and examined: On examination she appeared in good health and spirits, she does not appear to be in any distress. Vital signs as documented. Skin warm and dry and without overt rashes. Neck without JVD, thyroid appears normal, trachea is midline, neck is supple. Lungs clear, normal air movement was noted. Heart exam notable for regular rhythm, normal sounds and absence of murmurs, rubs or gallops. Abdomen unremarkable and without evidence of organomegaly, masses, or abdominal aortic enlargement, bowel sounds are present in all 4 quadrants, no abdominal tenderness was noted. Extremities nonedematous, no cyanosis was noted, no clubbing was noted. Neuro: Cranial nerves II through XII are grossly intact, no focal motor deficits were noted, sensation to light touch and pinprick is intact, motor exam 5/5 throughout. Psych: Patient is alert and oriented x3, she does not appear anxious or depressed, she does not appear agitated. Patient was discharged home in stable condition on 10/08/2024 Weight / BMI Weight Weight: 89.7 kg Body Mass Index (BMI) 30.0 ABG / Lab / Microbiology Data 10/07/24 05:34 10/07/24 05:34 Laboratory: Laboratory Results - last 24 hr 10/06/24 19:34: Hepatitis A IgM Ab Negative, Hep Bs Antigen Negative, Hep B Core IgM Ab Negative, Hepatitis C Ab (EIA) Non Reactive, Hep C Ab Comment Comment 10/07/24 05:34: Total Creatine Kinase 3084 H 10/08/24 05:44: Total Bilirubin 0.44, Direct Bilirubin 0.21, AST 316 H, ALT 295 H, Alkaline Phosphatase 47, Total Creatine Kinase 3464 H, Total Protein 5.0 L, A lbumin 2.7 L, Globulin 2.3 Microbiology: Microbiology 10/06/24 09:55 Urine, Clean Catch Urine Culture - Final Escherichia coli 10/06/24 09:55 Mucosa - Nose SARS-CoV-2, Influenza & RSV (PCR) - Final D/C Instructions Discharge Diet: No restrictions Weight Bearing Status: Full weight bearing DC O2, CPAP, BIPAP Needs Home O2 Discharge instructions: No Meaningful Use Info Meaningful Use Meaningful Use Diagnoses (Choose all that apply): None applicable Discharge Plan Admission Admit Date/Time: 10/06/24 17:28 Primary Reason for Your Visit: Rhabdomyolysis Attending Provider: Bayron Leal Primary Care Provider: Blanquita Lim Consulting Providers: Estrella Gross Instructions Patient Instructions: Rhabdomyolysis, ED UTIs Women Discharge Orders/Prescriptions Prescriptions: Continued lisinopril 40 mg tablet 40 mg PO QDAY omeprazole 20 mg capsule,delayed release(DR/EC) 20 mg PO QDAY cholecalciferol (vitamin D3) [Vitamin D3] 50 mcg (2,000 unit) capsule 100 mcg PO QDAY fluticasone propionate 50 mcg/actuation spray,suspension 2 spray intranasal DAILY amlodipine 10 mg tablet 10 mg PO QDAY cranberry 500 mg capsule 500 mg PO DAILY Rx Instructions: administer with a meal Discontinued vitamin E (dl, acetate) 180 mg (400 unit) capsule 180 mg PO QDAY aspirin [Nuvia Chewable Aspirin] 81 mg tablet,chewable 1 tab PO DAILY atorvastatin 10 mg tablet 10 mg PO QHS simvastatin 20 mg tablet 20 mg PO QHS Referrals / Follow Up: Blanquita Lim, DIALS SUPERVISOR-C [Primary Care Provider] - In 1 Week (You will need your liver function tests redrawn, a BMP, and a CPK drawn) Disposition Disposition (needs filled in before D/C Order can be placed): Home, Self Care Charges/Coding Visit Charges Inpatient E&M: 14340 Disch Hosp >30min
== END 2024-10-08 11:40 | disposition home or self-care (01) | DRG 558 ==
LOC: ED 16:06 → MS3 10-07 07:10
PROVIDERS: Admitting Provider Internal Medicine; Emergency Provider Surgery; PCP Nurse Practitioner Family; Visit Provider Internal Medicine
DX: M62.82 Rhabdomyolysis (principal); G72.0 Drug-induced myopathy; N39.0 Urinary tract infection, site not specified; I10 Essential (primary) hypertension; K76.0 Fatty (change of) liver, not elsewhere classified; E78.5 Hyperlipidemia, unspecified; K80.20 Calculus of gallbladder without cholecystitis without obstruction; K21.9 Gastro-esophageal reflux disease without esophagitis; I25.10 Atherosclerotic heart disease of native coronary artery without angina pectoris; R74.01 Elevation of levels of liver transaminase levels; T46.6X5A Adverse effect of antihyperlipidemic and antiarteriosclerotic drugs, initial encounter; Z79.51 Long term (current) use of inhaled steroids; Z79.899 Other long term (current) drug therapy; Z79.82 Long term (current) use of aspirin; R74.8 Abnormal levels of other serum enzymes
CPT/HCPCS: 36415; 74177; 76705; 80048; 80053; 80074; 80076; 81001; 82550; 83615; 83690; 84443; 85025; 85610; 87077; 87086; 87088; 87186; 87631; 96361; 96372; 96374; 99221; 99284; Q9967; A4216; G0378; J2405

== ENCOUNTER → 2024-10-10 | Outpatient (CLI) | payer MEDICAID, SELFPAY ==
[2024-10-10 16:35] LABS: AST(SGOT) 478 U/L (<=31); Alanine Aminotransfer ALT/SGPT 411 U/L (<=34); Albumin, Serum 3.0 g/dL (3.5-5.0); Alkaline Phosphatase 53 U/L (35-104); Anion Gap 11 (5-15); BUN 6 mg/dL (4-19); BUN/Creat Ratio 13.1 RATIO (10-20); Bilirubin, Direct 0.29 mg/dL (0.00-0.30); Calcium,Total 8.9 mg/dL (7.6-11.0); Carbon Dioxide 23.5 mmol/L (21.0-32.0); Chloride 105 mmol/L (98-108); Globulin 2.5 g/dL (2.2-4.2); Glucose 93 mg/dL (70-99); Potassium 3.5 mmol/L (3.3-5.1); Pro- Brain NATRIURETIC PEPTIDE 312 pg/mL (<=900)
[2024-10-10 17:13] LABS: LDH 1317 U/L (84-246)
[2024-10-11 10:09] LABS: CPK Total, Creatine Kinase 6231 U/L (24-195)
[2024-10-15 15:08] LABS: Creatine Kinase BB 0 % (0); Creatine Kinase MM 76 % (97-100); Creatine Kinase,Total,Serum 5834 U/L (32-182); Macro I 17 % (Not Observed); Macro II 0 % (Not Observed)
== END | disposition home or self-care (01) ==
LOC: LAB 14:28
PROVIDERS: PCP Nurse Practitioner Family; Referring Provider Nurse Practitioner Family; Visit Provider Nurse Practitioner Family
DX: M62.82 Rhabdomyolysis (principal); R63.5 Abnormal weight gain
CPT/HCPCS: 36415; 80048; 80076; 82550; 82552; 83615; 83880

== ENCOUNTER → 2024-10-13 | Outpatient (CLI) | payer MEDICAID, SELFPAY ==
[2024-10-13 16:17] LABS: AST(SGOT) 432 U/L (<=31); Alanine Aminotransfer ALT/SGPT 416 U/L (<=34); Albumin, Serum 3.0 g/dL (3.5-5.0); Alkaline Phosphatase 58 U/L (35-104); Anion Gap 11 (5-15); BUN 7 mg/dL (4-19); BUN/Creat Ratio 15.6 RATIO (10-20); Calcium,Total 8.8 mg/dL (7.6-11.0); Carbon Dioxide 24.6 mmol/L (21.0-32.0); Chloride 104 mmol/L (98-108); Globulin 2.6 g/dL (2.2-4.2); Glucose 147 mg/dL (70-99); Potassium 3.5 mmol/L (3.3-5.1)
[2024-10-13 16:33] LABS: CPK Total, Creatine Kinase 5541 U/L (24-195)
[2024-10-13 16:53] LABS: LDH 1301 U/L (84-246)
== END | disposition home or self-care (01) ==
LOC: LAB 14:31
PROVIDERS: PCP Nurse Practitioner Family; Referring Provider Nurse Practitioner Family; Visit Provider Nurse Practitioner Family
DX: M62.82 Rhabdomyolysis (principal); R63.5 Abnormal weight gain
CPT/HCPCS: 36415; 80053; 82550; 83615

== ENCOUNTER 2024-10-16 13:51 | Emergency (ER) | payer MEDICAID, SELFPAY ==
[2024-10-16 13:51] VITALS: BP 135/88; PULSE 105; RESP 18; TEMP 37.1; O2SAT 97; BMI 31.0
--- NOTE | 2024-10-16 14:41 | EX.ED.DYSGE1 ---
HPI <BRIAN Acosta - Last Filed: 10/16/24 21:45> History of Present Illness Chief Complaint: Edema Narrative Narrative: 54-year-old female with past medical history of HTN, HLD, CAD, GERD presents with bilateral leg edema. She was admitted from 10/06 through 10/08 for rhabdomyolysis secondary to statin use and elevated liver enzymes. She was given copious IV fluids. At discharge they discontinued her statin and amlodipine. When going home she states she was edematous with eyelids swelling and some swelling in her feet. She followed up at the [facility] and had repeat labs which looked okay. The swelling in her feet has been worsening. It goes down somewhat overnight but then significantly swells during the day. She took Lasix once last week and once today but does not know the dose. She denies chest pain, shortness of breath, orthopnea but does have a dry cough. [facility] <BRIAN Acosta - Last Filed: 10/16/24 21:45> [facility] Medical History Hyperlipidemia Wears hearing aid Post-menopausal History of steroid therapy Gastric reflux Non-smoker History of edema History of stress test Hypertension History of broken leg Kidney anomaly, congenital (~09/10/23) History of kidney problems delivery delivered Home Medications ?Medication ?Instructions ?Recorded ?Last Taken ?Type cholecalciferol (vitamin D3) 50 100 mcg PO QDAY 07/13/23 10/10/23 History mcg (2,000 unit) capsule (Vitamin D3) lisinopril 40 mg tablet 40 mg PO QDAY 07/13/23 10/11/23 History omeprazole 20 mg capsule,delayed 20 mg PO QDAY 07/13/23 10/11/23 History release cranberry 500 mg capsule 500 mg PO DAILY 10/02/23 10/10/23 History fluticasone propionate 50 2 spray intranasal DAILY 04/29/24 Unknown History mcg/actuation nasal spray,suspension amlodipine 10 mg tablet 10 mg PO QDAY 05/23/24 Unknown History Allergy/AdvReac Type Severity Reaction Status Date / Time bee venom protein (honey bee) Allergy Severe Anaphylaxis Verified 10/16/24 13:53 Sulfa (Sulfonamide Allergy Severe Anaphylaxis Verified 10/16/24 13:53 Antibiotics) Family History Grandmother Breast cancer Father Heart disease Myocardial infarction Mother Pulmonary embolism Social History Smoking Status: Never smoker alcohol intake: never substance use type: does not use ROS <BRIAN Acosta - Last Filed: 10/16/24 21:45> ROS ED ROS Narrative Constitutional: Negative for fever, chills, malaise. CVS: Negative for chest pain. Respiratory: Negative for shortness of breath orthopnea. GI: Negative for abdominal pain, nausea, vomiting. EXAM <BRIAN Acosta Last Filed: 10/16/24 21:45> Physical Exam Narrative Exam Narrative: CONST: Patient sitting in no acute distress. EYES: Normal inspection. NECK: Normal inspection. RESP: No respiratory distress, bibasilar crackles. CVS: Regular rate and rhythm, no murmur, no gallop. ABD: Soft and nontender, no guarding or rebound, nondistended. SKIN: Color normal, no rash, warm, dry, intact. EXTREMITIES: 3+ pitting edema both feet. Chronic venous stasis of the right grady. NEURO: Alert and answering questions appropriately. PSYCH: Normal affect. Const Vital Signs: 10/16/24 13:51 10/16/24 15:27 10/16/24 15:51 Temperature 98.7 F 98.7 F Temperature Source Oral Pulse Rate 105 H 105 H Respiratory Rate 18 18 Respiratory Effort Normal Non-Labored Respiratory Pattern Normal Blood Pressure 135/88 H 135/88 H Blood Pressure Mean 103 103 Pulse Ox 97 97 Oxygen Delivery Method Room Air <Dr. Mulugeta Chaney, DO - Last Filed: 10/16/24 22:35> Physical Exam Const Vital Signs: 10/16/24 13:51 10/16/24 15:27 10/16/24 15:51 Temperature 98.7 F 98.7 F Temperature Source Oral Pulse Rate 105 H 105 H Respiratory Rate 18 18 Respiratory Effort Normal Non-Labored Respiratory Pattern Normal Blood Pressure 135/88 H 135/88 H Blood Pressure Mean 103 103 Pulse Ox 97 97 Oxygen Delivery Method Room Air MDM <BRIAN Acosta - Last Filed: 10/16/24 21:45> MDM MDM Narrative Medical decision making narrative: Differential: Fluid overload, congestive heart failure, dependent edema Patient presents with bilateral lower extremity edema that started after receiving lots of IV fluids during recent admission for IV rhabdomyolysis. She is taken 2 doses of Lasix 20 mg from the [facility] without improvement. She appears well and nontoxic. Heart rate 25 with otherwise normal vital signs. She speaking full sentences in no distress. Lung sounds slight bibasilar rales. She has 3+ pitting edema both feet. There is no signs of infection. There is chronic venous stasis changes of the right leg where she states she had prior surgery. CBC is unremarkable. Electrolytes and renal function are normal. She has transaminitis that looks similar to previous. During her admission she had negative CT of the abdomen/pelvis and gallbladder ultrasound so I provided a GI referral to evaluate the transaminitis but is not causing acute issues. Chest x-ray shows some fluid and likely developing left pleural effusion. Again she is not hypoxic and does not require admission. She was given IV Lasix 40 mg and instructed to start taking the Lasix 20 mg daily and follow-up with her primary care physician. She was discharged in stable condition. Lab Data Attestation: I reviewed the patient's lab results. Labs: Laboratory Results - last 24 hr 10/16/24 14:50 WBC 6.0 RBC 4.48 Hgb 14.0 Hct 41.7 MCV 93.1 MCH 31.3 MCHC 33.6 RDW Std Deviation 54.0 H RDW Coeff of Micheal 15.7 H Plt Count 264 MPV 11.3 Immature Gran % (Auto) 0.200 Neut % (Auto) 73.9 H Lymph % (Auto) 12.5 L Oldham % (Auto) 5.5 Eos % (Auto) 7.2 H Baso % (Auto) 0.7 Absolute Neuts (auto) 4.4 Absolute Lymphs (auto) 0.75 L Nucleated RBC % 0 Sodium 138 Potassium 3.8 Chloride 102 Carbon Dioxide 25.8 Anion Gap 10 BUN 8 Creatinine 0.44 L Estim Creat Clear Calc 171.85 Est GFR (MDRD) Non-Af 114 BUN/Creatinine Ratio 18.2 Glucose 114 H Calcium 9.1 Total Bilirubin 0.55 AST 438 H ALT 390 H Alkaline Phosphatase 54 NT pro BNP II 74 Total Protein 5.5 L Albumin 3.1 L Globulin 2.5 Albumin/Globulin Ratio 1.2 Radiography Diagnostic Testing: Clinical Impression(s) from Imaging Studies Chest X-Ray 10/16/24 15:04 IMPRESSION: Heart size is upper limits of normal. Mild vascular congestion with the blunting of the left costophrenic angle and bibasilar atelectasis worse at the left lung base. Reading Location: [place] [id number] ED attending interpretation of two-view chest x-ray shows normal heart size, left pleural effusion. <Dr. Mulugeta Chaney, DO - Last Filed: 10/16/24 22:35> [facility] History & Record Review Additional record(s) reviewed:: Prior inpatient record, Prior ED visit and Prior labs Lab Data Labs: Laboratory Results - last 24 hr 10/16/24 14:50 WBC 6.0 RBC 4.48 Hgb 14.0 Hct 41.7 MCV 93.1 MCH 31.3 MCHC 33.6 RDW Std Deviation 54.0 H RDW Coeff of Micheal 15.7 H Plt Count 264 MPV 11.3 Immature Gran % (Auto) 0.200 Neut % (Auto) 73.9 H Lymph % (Auto) 12.5 L Old[place] % (Auto) 5.5 Eos % (Auto) 7.2 H Baso % (Auto) 0.7 Absolute Neuts (auto) 4.4 Absolute Lymphs (auto) 0.75 L Nucleated RBC % 0 Sodium 138 Potassium 3.8 Chloride 102 Carbon Dioxide 25.8 Anion Gap 10 BUN 8 Creatinine 0.44 L Estim Creat Clear Calc 171.85 Est GFR (MDRD) Non-Af 114 BUN/Creatinine Ratio 18.2 Glucose 114 H Calcium 9.1 Total Bilirubin 0.55 AST 438 H ALT 390 H Alkaline Phosphatase 54 NT pro BNP II 74 Total Protein 5.5 L Albumin 3.1 L Globulin 2.5 Albumin/Globulin Ratio 1.2 Radiography Diagnostic Testing: Clinical Impression(s) from Imaging Studies Chest X-Ray 10/16/24 15:04 IMPRESSION: Heart size is upper limits of normal. Mild vascular congestion with the blunting of the left costophrenic angle and bibasilar atelectasis worse at the left lung base. Reading Location: [id number] Treatment and Re-Evaluation :: I have personally performed a face to face assessment of the patient and have reviewed the JANEL Note. I performed a substantive portion of the visit including all aspects of the following. My petersen findings include: History: Patient presents with lower extremity swelling that has been getting worse over the past week. Patient states she was recently admitted here and was given IV fluids at that time. Patient states that she noted increased swelling in her legs. Patient admits to some subjective fevers. Patient states her fevers are worse at night. Patient admits to a slight cough but denies any shortness of breath. Patient states her swelling gets better when she is able to elevate her legs. Patient states nothing makes it worse. Exam: Vital signs are stable. Patient is afebrile. Patient is in no acute distress. Oral mucosa is pink and moist. Neck is supple. Trachea is midline. There is no JVD. Heart was regular rate and rhythm. Lungs are clear and equal bilaterally. There is good respiratory effort noted. Abdomen is soft. Bowel sounds are normal. There is no tenderness. Cranial nerves II through XII are intact. There are no focal motor or sensory deficits. Medical Decision Making: Differential diagnosis includes acute kidney injury, congestive heart failure, and peripheral edema. CBC will be obtained to assess for leukocytosis and anemia. Comprehensive metabolic profile will be obtained to assess for hepatic function, renal function, and electrolyte abnormality. BNP will be obtained to assess for congestive heart failure. Chest x-ray will be obtained to assess for congestive heart failure and pneumonia. Patient was given a dose of Lasix here. CBC was reviewed and was within normal limits. Comprehensive metabolic profile was reviewed. AST was slightly elevated at 438 and ALT was slightly elevated at 390. These are unchanged compared to previous results. Total bilirubin and alkaline phosphatase are within normal limits. The remainder is essentially within normal limits. BNP was reviewed and was normal at 74. PA and lateral chest x-ray was obtained. There are 2 views. On my independent interpretation, lung roche are clear. There is borderline cardiomegaly. Bony thorax is normal. There is no acute process noted. Radiologist also interpreted the x-ray and agrees. Patient was advised of her findings. Patient was instructed to continue her Lasix daily. Patient was instructed to follow-up with her primary care physician in 5 to 7 days. Patient understood and was agreeable with the plan. All questions were answered. Discharge Plan Triage Chief Complaint: Edema ED Midlevel Provider: Suzanna Jordan ED Provider: Mulugeta Chaney Dx/Rx/DC Orders Clinical Impression: Bilateral edema of lower extremity, Transaminitis Instructions: ED Peripheral Edema, Bilateral Prescriptions: No Action lisinopril 40 mg tablet 40 mg PO QDAY omeprazole 20 mg capsule,delayed release(DR/EC) 20 mg PO QDAY cholecalciferol (vitamin D3) [Vitamin D3] 50 mcg (2,000 unit) capsule 100 mcg PO QDAY fluticasone propionate 50 mcg/actuation spray,suspension 2 spray intranasal DAILY amlodipine 10 mg tablet 10 mg PO QDAY cranberry 500 mg capsule 500 mg PO DAILY Rx Instructions: administer with a meal Primary Care Provider: Blanquita Lim Referrals: Willis Mckeon DO [Med Staff - Active Staff] - Blanquita Lim, [employer] [Primary Care Provider] - Activity Restrictions/Additional Instructions: You were given a dose of IV Lasix 40 mg. Take the Lasix you have from the [facility] at home once daily. Call them for further instructions as they may need to increase it Travella frequently to help decrease the swelling. You also still have high liver enzymes and need to follow-up with a specialist for this. Print Language: Panamanian Disposition Disposition: Home, Self Care Discharge Date/Time: 10/16/24 16:00
[2024-10-16 15:02] LABS: Hematocrit 41.7 % (37-47); Hemoglobin 14.0 g/dL (12.0-15.0); Immature Granulocytes Count 0.010 X10^3/uL (0.0-0.0); Mean Corp Hgb Conc 33.6 g/dL (32-36); Mean Corpuscular Volume 93.1 fL (81-99); Mean Platelet Vol. 11.3 fl (6.2-12.0); NRBC Flagged by Analyzer 0 % (0-5); Platelet Count 264 K/mm3 (150-450); RBC Distribution Width CV 15.7 % (11.6-14.6); RBC Distribution Width SD 54.0 fl (35.1-43.9); Red Blood Count 4.48 M/mm3 (4.2-5.4); White Blood Count 6.0 K/mm3 (4.4-11.0)
--- NOTE | 2024-10-16 15:04 | RAD_ITS ---
PROCEDURE: CHEST PA AND LATERAL 10/16/2024 REASON FOR EXAM: EDEMA TECHNIQUE: CHEST PA AND LATERAL COMPARISON: None FINDINGS: Hardware: None Heart: Heart size upper limits of normal. Mediastinum: The mediastinal contour is unremarkable. Lungs: Small left pleural effusion with left basilar infiltration and/or atelectasis. Mild atelectasis at the right lung base. Mild vascular congestion. Bones: Degenerative changes are identified within the thoracic spine. RAD/Chest PA and Lateral IMPRESSION: Heart size is upper limits of normal. Mild vascular congestion with the blunting of the left costophrenic angle and b ibasilar atelectasis worse at the left lung base. [facility]
[2024-10-16 15:25] LABS: AST(SGOT) 438 U/L (<=31); Alanine Aminotransfer ALT/SGPT 390 U/L (<=34); Albumin, Serum 3.1 g/dL (3.5-5.0); Alkaline Phosphatase 54 U/L (35-104); Anion Gap 10 (5-15); BUN 8 mg/dL (4-19); BUN/Creat Ratio 18.2 RATIO (10-20); Calcium,Total 9.1 mg/dL (7.6-11.0); Carbon Dioxide 25.8 mmol/L (21.0-32.0); Chloride 102 mmol/L (98-108); Estimated Creatinine Clearance 171.85 ml/min (50-250); Globulin 2.5 g/dL (2.2-4.2); Glucose 114 mg/dL (70-99); Potassium 3.8 mmol/L (3.3-5.1); Pro- Brain NATRIURETIC PEPTIDE 74 pg/mL (<=900)
[2024-10-16 15:51] VITALS: BP 135/88; PULSE 105; RESP 18; TEMP 37.1; O2SAT 97
--- OUTSIDE RECORDS SUMMARY | 2024-10-16 20:25 | XMS RPT_ITS | CCD ---
Author Organization [facility] Care Team Providers Care Channel Cementer Insole Machine Name Role Phone NATE, ADITHYA Admitting Unavailable NATE, ADITHYA Attending Unavailable NATE, ADITHYA Primary Care Unavailable NATE, ADITHYA Consulting Unavailable PROVIDER, UNKNOWN Consulting Unavailable NATE, ADITHYA Admitting Unavailable NATE, ADITHYA Attending Unavailable NATE, ADITHYA Primary Care Unavailable NATE, ADITHYA Consulting Unavailable PROVIDER, UNKNOWN Consulting Unavailable NATE, ADITHYA Admitting Unavailable NATE, ADITHYA Attending Unavailable NATE, ADITHYA Primary Care Unavailable NATE, ADITHYA Consulting Unavailable PROVIDER, UNKNOWN Consulting Unavailable NATE, ADITHYA Admitting Unavailable NATE, ADITHYA Attending Unavailable NATE, ADITHYA Primary Care Unavailable NATE, ADITHYA Consulting Unavailable PROVIDER, UNKNOWN Consulting Unavailable NATE, ADITHYA Admitting Unavailable NATE, ADITHYA Attending Unavailable NATE, ADITHYA Primary Care Unavailable NATE, ADITHYA Consulting Unavailable PROVIDER, UNKNOWN Consulting Unavailable Nate EMPLOYMENT OFFICE CLERK, Adithya K Primary Care Provider NATE, ADITHYA Attending Unavailable NATE, ADITHYA Admitting Unavailable NTAE, ADITHYA Primary Care Unavailable NATE, ADITHYA Consulting Unavailable PROVIDER, UNKNOWN Consulting Unavailable NATE, ADITHYA Consulting Unavailable NATE, ADITHYA Attending Unavailable NATE, ADITHYA Admitting Unavailable NATE, ADITHYA Primary Care Unavailable PROVIDER, UNKNOWN Consulting Unavailable NATE, ADITHYA Attending Unavailable NATE, ADITHYA Admitting Unavailable NATE, ADITHYA Primary Care Unavailable NATE, ADITHYA Consulting Unavailable PROVIDER, UNKNOWN Consulting Unavailable ZULEMAVITA E Admitting Unavailable ZULEMA, VITA E Primary Care Unavailable ZULEMAVITA E Attending Unavailable NATE, ADITHYA Consulting Unavailable PROVIDER, UNKNOWN Consulting Unavailable NATE, ADITHYA K Primary Care Unavailable LACIE MARTINES Attending Unavailable NATE, ADITHYA K Primary Care Unavailable CHRISTI MORGAN Attending Unavailable Raphael EMPLOYMENT OFFICE CLERK-C, Blanquita Primary Care Provider [phone] Raphael EMPLOYMENT OFFICE CLERK-C, Blanquita Attending Provider Raphael EMPLOYMENT OFFICE CLERK-C, Blanquita Referring Provider Raphael EMPLOYMENT OFFICE CLERK-C, Blanquita Other Provider Javi LIM, Dr. Ferreira Attending Provider [phone] Carmen LIM, Dr. Herrera Attending Provider Carmen LIM, Dr. Herrera Referring Provider Carmen LIM, Dr. Herrera Other Provider [phone] Krystin LIM, Dr. Linares Attending Provider Raphael EMPLOYMENT OFFICE CLERK-C, Blanquita Primary Care Provider Raphael EMPLOYMENT OFFICE CLERK-C, Blanquita Referring Provider Raphael EMPLOYMENT OFFICE CLERK-C, Blanquita Attending Provider Raphael EMPLOYMENT OFFICE CLERK-C, Blanquita Primary Care Provider Carmen LIM, Dr. Herrera Attending Provider Raphael EMPLOYMENT OFFICE CLERK-C, [place]ita Referring Provider Raoul SANCHEZ, Dr. [facility] Emergency Provider Renato LIM, Dr. De La Rosa Attending Provider Renato LIM, Dr. De La Rosa Admit Provider Renato LIM, Dr. De La Rosa Other Provider Dr. Bayron Leal DO Attending Provider Elvis SANCHEZ, Dr. Verma Other Provider Raphael VSC, Blanquita Attending Unavailabl e Raphael VSC, Blanquita Primary Care Unavailabl e Raphael VSC, Blanquita Referring Unavailabl e Raphael VSC, Blanquita Attending Unavailabl e Raphael VSC, Blanquita Primary Care Unavailabl e Raphael VSC, Blanquita Primary Care UnavailEstrella Vo Attending Unavailable Estrella Gross Consulting Unavailable Estrella Gross Admitting Unavailable Raphael VSC, [place]anquita Primary Care Unavailabl e Bayron Leal Attending Unavailable Bayron Leal Consulting Unavailable Raphael VSC, [place]quita Primary Care UnavailJavier Santoyo Referring Unavailable Javier Morales Attending Unavailable Raphael [facility]SC, [place] Primary Care Unavailabl e Vijay Mcclelland Attending Unavailabl e Javier Morales Referring Unavailable Javier Morales Consulting Unavailable [facility], [place] Primary Care Unavailabl e Raphael [facility], [place] Referring Unavailabl e Javier Morales Attending Unavailable Raphael [facility], [place] Consulting Unavailabl e Raphael [facility], [place] Primary Care Unavailabl e Raphael [facility], [place] Referring Unavailabl e Jhon Caldwell Attending Unavailable [facility], [place] [facility] Unavailable [facility], [place] Attending Unavailabl [facility], [facility] Unavailable [facility], [place] Attending Unavailabl e Mackenzie Hernandez Referring Unavailable ChicahoMackenzie bravo Attending Unavailable [facility], [facility] Primary Care Unavailabl e [facility], [place] Attending Unavailabl e [facility], [facility] Primary Care Unavailabl e [facility], [place] Referring Unavailabl e Estrella Gross Consulting Unavailable Estrella Gross Admitting Unavailable [facility], [facility] Unavailabl e Bayron Leal Attending Unavailable ChicahoMackenzie bravo Referring Unavailable [facility], [facility] Primary Care Unavailabl e Tannholawrence, Mackenzie Attending Unavailable Allergies Allergy Classification Reported Allergen(s) Allergy Type Date of Onset Reaction(s) Facility (2 sources) bee venom Drug allergy (disorder) [facility] (2 sources) Sulfonamides (Antibiotic) Drug allergy (disorder) [facility] (3 sources) Sulfonamides (Antibiotic); Translations: [SULFA (SULFONAMIDE ANTIBIOTICS)] Propensity to adverse reactions 3 Swelling [facility] (8 sources) Bee Venom Protein (Honey Bee); Translations: [BEE VENOM PROTEIN (HONEY BEE)] Propensity to adverse reactions 3 Anaphylaxis [facility] (5 sources) Sulfonamides (Antibiotic) Allergy to substance 5 Anaphylaxis [facility] (1 source) Sulfonamides (Antibiotic) Drug allergy (disorder) 5 [facility] (1 source) bee venom protein (honey bee) Drug allergy (disorder) 5 [facility] Medications Current Medications Medication Drug Class(es) Dates Sig (Normalized) Sig (Original) amLODIPine 10 mg oral tablet (12 sources) Dihydropyridine Calcium Channel Wyatt Start: 05-23-2024 [...] mouth 1 (one) time each day. Active cephalexin 500 mg oral capsule (3 sources) Cephalosporin Antibacterial Start: 10-06-2024 take 1 capsule by mouth every twelve hours Cephalexin 500 mg capsule Active 500 mg PO EVERY 12 HOURS 14 0 October 06, 2024 12:00am Start: 03-03-2023 End: 03-10-2023 cephalexin (KEFLEX) capsule 500 mg cholecalciferol 0.05 mg oral capsule (5 sources) Vitamin D Start: 07-13-2023 take 1 capsule by mouth once daily Cholecalciferol (Vitamin D3) (Vitamin D3) 50 mcg (2,000 unit) capsule Active 100 ug PO daily July 13, 2023 12:00am Cranberry (5 sources) Non-Standardized Food Allergenic Extract, Non-Standardized Plant Allergenic Extract Start: 10-02-2023 take 1 capsule by mouth once daily Cranberry 500 mg capsule Active 500 mg PO DAILY October 02, 2023 12:00am administer with a meal fluticasone propionate 0.05 mg/actuat metered dose nasal spray (12 sources) Corticosteroid Start: 07-13-2023 End: 04-29-2024 Fluticasone [...] cap. Active lisinopril 40 mg oral tablet (7 sources) Angiotensin Converting Enzyme Inhibitor Start: 07-13-2023 take 1 tablet by mouth once daily Lisinopril 40 mg tablet Active 40 mg PO daily July 13, 2023 12:00am take 1 tablet by mouth once joslyn y lisinopriL (PRINIVIL,ZESTRIL) 10 mg tablet Take 1 tablet (10 mg total) by mouth 1 (one) time each day. Active omeprazole 20 mg delayed release oral capsule (7 sources) Proton Pump Inhibitor Start: 07-13-2023 take 1 capsule by mouth once daily Omeprazole 20 mg capsule,delayed release(DR/EC) Active 20 mg PO daily July 13, 2023 12:00am take 1 capsule by mouth once dmitriy ly omeprazole (PriLOSEC) [address] capsule Take 1 capsule (10 mg total) by mouth 1 (one) time each day. Do not crush or chew. Active Completed/Discontinued Medications Medication Drug Class(es) Dates Sig [...] 08/23/2023 Active amoxicillin 500 mg oral capsule (5 sources) Penicillin-class Antibacterial Start: 09-07-2023 End: 10-02-2023 take 1 capsule by mouth three times daily Amoxicillin 500 mg capsule Discontinued 500 mg PO THREE TIMES A DAY September 07, 2023 12:00am October 02, 2023 1:29pm aspirin 81 mg chewable tablet (7 sources) Platelet Aggregation Inhibitor, Nonsteroidal Anti-inflammatory Drug Start: 10-02-2023 End: 10-08-2024 Aspirin (Nuvia Chewable Aspirin) 81 mg tablet,chewable Discontinued 1 {tbl} PO DAILY October 02, 2023 12:00am October 08, 2024 8:19am take 1 tablet by mouth once joslyn y aspirin 81 mg EC tablet Take 1 tablet (81 mg total) by mouth 1 (one) time each day. Active atorvastatin 10 mg oral tablet (14 sources) HMG-CoA Reductase Inhibitor Start: 10-06-2024 End: 10-08-2024 take 1 tablet by mouth at bedtime Atorvastatin 10 mg tablet Discontinued 10 mg PO AT BEDTIME October 06, 2024 12:00am October 08, 2024 8:19am Start: 05-23-2024 End: 06-19-2024 take 1 tablet by mouth once daily Atorvastatin 80 mg tablet Discontinued 80 mg PO daily 29 06May 23, 2024 1:00am June 19, 2024 8:47am Start: 07-13-2023 End: 05-23-2024 take 1 tablet by mouth once daily Atorvastatin 10 mg tablet Discontinued 10 mg PO daily July 13, 2023 12:00am May 23, 2024 2:22pm ibuprofen 400 mg oral tablet (5 sources) Nonsteroidal Anti-inflammatory Drug Start: 09-07-2023 End: 10-02-2023 take 2 tablets by mouth once daily Ibuprofen 400 mg tablet Discontinued 800 mg PO DAILY September 07, 2023 12:00am October 02, 2023 1:29pm loratadine 10 mg oral tablet (7 sources) Start: 07-13-2023 End: 05-23-2024 take 1 [...] 03/05/2023 Active simvastatin 20 mg oral tablet (9 sources) HMG-CoA Reductase Inhibitor Start: 10-06-2024 End: 10-08-2024 take 1 tablet by mouth at bedtime Simvastatin 20 mg tablet Discontinued 20 mg PO AT BEDTIME October 06, 2024 12:00am October 08, 2024 8:20am Start: 07-13-2023 End: 05-23-2024 take 1 tablet by mouth once daily Simvastatin 20 mg tablet Discontinued 20 mg PO DAILY July 13, 2023 12:00am May 23, 2024 2:06pm hyperlipidemia take 1 tablet by nakia th at bedtime simvastatin (ZOCOR) 10 mg tablet Take 1 tablet (10 mg total) by mouth at bedtime. Active vitamin e 180 mg oral capsule (5 sources) Start: 07-13-2023 End: 10-08-2024 take 1 capsule by mouth once daily Vitamin E (Dl, Acetate) 180 mg (400 unit) capsule Discontinued 180 mg PO daily July 13, 2023 12:00am October 08, 2024 8:20am Problems Problem Classification Problem Date Documented Date Episodic/Chronic Allergic reactions (2 sources) Allergy status to sulfonamides status; Translations: [Latex allergy status] Onset: 08-14-2023 Episodic Coronary atherosclerosis and other heart disease (10 sources) Coronary arteriosclerosis; Translations: [Atherosclerotic heart disease of algaaciq coronary artery without angina pectoris] Onset: 05-23-2024 05-23-2024 Chronic Diabetes mellitus without complication (2 sources) Impaired fasting glucose; Translations: [Impaired fasting glucose] Onset: 10-17-2022 Episodic Disorders of lipid metabolism (11 sources) Hyperlipidemia; Translations: [Hyperlipidemia, unspecified] Onset: 05-23-2024 05-23-2024 Chronic Disorders of teeth and jaw (3 sources) Other specified disorders of teeth and supporting structures; Translations: [Other specified disorders of teeth and supporting structures] Onset: 08-14-2023 Episodic Esophageal disorders (5 sources) Gastroesophageal reflux disease; Translations: [Gastro-esophageal reflux [...] antireflux surgery at this time. Essential hypertension (13 sources) Essential (primary) hypertension; Translations: [Hypertensive disorder] Onset: 01-19-2023 05-23-2024 Chronic Comment on above: ON MEDS Genitourinary congenital anomalies (5 sources) Congenital anomaly of the kidney; Translations: [...] Onset: 08-20-2023 Other aftercare (1 source) Other group home (current) drug therapy; Translations: [Other manager intermediate (current) drug therapy] Onset: 08-14-2023 Episodic Other connective tissue disease (1 source) Rhabdomyolysis; Translations: [Rhabdomyolysis] Onset: 10-13-2024 Episodic Other liver diseases (4 sources) Increased creatine kinase level; Translations: [Abnormal levels of other serum enzymes] 10-06-2024 Episodic Other liver diseases (2 sources) Abnormal levels of other serum enzymes; Translations: [Abnormal levels of other serum enzymes] Onset: 10-12-2024 Episodic Other nutritional; endocrine; and metabolic disorders (1 source) Abnormal weight gain; Translations: [Abnormal weight gain] Onset: 10-13-2024 Episodic Other screening for suspected conditions (not mental disorders or infectious disease) (16 sources) Patient encounter status; Translations: [Encounter for screening for malignant neoplasm of colon] Onset: 01-16-2024 07-13-2023 Episodic Comment on above: Patient is [...] unspecified; Translations: [Hypothyroidism, unspecified] Onset: 01-19-2023 Chronic Unclassified (1 source) You will need your liver function tests redrawn, a BMP, and a CPK drawn Urinary tract infections (8 sources) Acute cystitis; Translations: [Acute cystitis without hematuria] Onset: 03-03-2023 03-03-2023 Episodic Results Test Name Value Interpretation Reference Range Facility CPK Total, Creatine Kinaseon 10-13-2024 CPK TOTAL 5541 U/L High 24-195 [facility] Comment on above: Performed By: #### L 500.4050, L501.3620, L504.2610 #### [facility] [address] [place], [address] Comprehensive Metabolic Prof ilon 10-13-2024 Albumin [Mass/Vol] 3.0 g/dL Low 3.5-5.0 [facility] Comment on above: Performed By: #### L 500.4050, L501.3620, L504.2610 #### [facility] [address] [place], [address] Albumin/Globulin [Mass ratio] 1.2 {ratio} Normal 0.9-2.4 [facility] Comment on above: Performed By: #### L 500.4050, L501.3620, L504.2610 #### [facility] [address] [place], [address] ALK PHOS 58 U/L Normal 35-104 [facility] Comment on above: Performed By: #### L 500.4050, L501.3620, L504.2610 #### [facility] [address] [place], [address] ALT [Catalytic activity/Vol] 416 U/L High <=34 [facility] Comment on above: Performed By: #### L 500.4050, L501.3620, L504.2610 #### [facility] [address] [place], [address] AST [Catalytic activity/Vol] 432 U/L High <=31 [facility] Comment on above: Performed By: #### L 500.4050, L501.3620, L504.2610 #### [facility] [address] [place], [address] Bilirubin [Mass/Vol] 0.61 mg/dL Normal 0.00-1.30 [facility] Comment on above: Performed By: #### L 500.4050, L501.3620, L504.2610 #### [facility] [address] [place], [address] BUN/CRE 15.6 RATIO Normal 10-20 [facility] Comment on above: Performed By: #### L 500.4050, L501.3620, L504.2610 #### [facility] [address] [place], [address] Calcium [Mass/Vol] 8.8 mg/dL Normal 7.6-11.0 [facility] Comment on above: Performed By: #### L 500.4050, L501.3620, L504.2610 #### [facility] [address] [place], [address] Chloride [Moles/Vol] 104 mmol/L Normal 98-108 [facility] Comment on above: Performed By: #### L 500.4050, L501.3620, L504.2610 #### [facility] [address] [place], [address] CO2 [Moles/Vol] 24.6 mmol/L Normal 21.0-32.0 [facility] Comment on above: Performed By: #### L 500.4050, L501.3620, L504.2610 #### [facility] [address] [place], [address] Creatinine [Mass/Vol] 0.48 mg/dL Low 0.70-1.20 [facility] Comment on above: Performed By: #### L 500.4050, L501.3620, L504.2610 #### [facility] [address] [place], [address] GAP 11 Normal 5-15 [facility] Comment on above: Performed By: #### L 500.4050, L501.3620, L504.2610 #### [facility] [address] [place], [address] GFR/1.73 sq M.predicted among non-blacks MDRD (S/P/Bld) [Vol rate/Area] 112 mL/min/{1.73_m2} Normal >60 [facility] Comment on above: Result Comment: mL/m in/1.73m2 CKD-EPI Creatinine Equation (2020) Performed By: #### L 500.4050, L501.3620, L504.2610 #### [facility] [address] [place], [address] Globulin (S) [Mass/Vol] 2.6 g/dL Normal 2.2-4.2 [facility] Comment on above: Performed By: #### L 500.4050, L501.3620, L504.2610 #### [facility] [address] [place], [address] Glucose [Mass/Vol] 147 mg/dL High 70-99 [facility] Comment on above: Performed By: #### L 500.4050, L501.3620, L504.2610 #### [facility] [address] [place], [address] Potassium [Moles/Vol] 3.5 mmol/L Normal 3.3-5.1 [facility] Comment on above: Performed By: #### L 500.4050, L501.3620, L504.2610 #### [facility] [address] [place], [address] Sodium [Moles/Vol] 140 mmol/L Normal 133-145 [facility] Comment on above: Performed By: #### L 500.4050, L501.3620, L504.2610 #### [facility] [address] [place], [address] T PROT 5.5 g/dL Low 5.9-8.4 [facility] Comment on above: Performed By: #### L 500.4050, L501.3620, L504.2610 #### [facility] [address] [place], [address] Urea nitrogen [Mass/Vol] 7 mg/dL Normal 4-19 [facility] Comment on above: Performed By: #### L 500.4050, L501.3620, L504.2610 #### [facility] [address] [place], [address] LDHon 10-13-2024 LDH 1301 U/L High 84-246 [facility] Comment on above: Order Comment: 1 Performed By: #### L 500.4050, L501.3620, L504.2610 #### [facility] [address] [place], [address] CPK Total, Creatine Kinaseon 10-11-2024 CPK TOTAL 6231 U/L High 24-195 [facility] Comment on above: Performed By: #### L 3000.0375 #### [facility] [address] [place], [address] Basic Metabolic Profile (BMP )on 10-10-2024 BUN/CRE 13.1 RATIO Normal 10-20 [facility] Comment on above: Performed By: #### L 500.3400, L504.2610, L501.3620, L503.7505, L500.2500 #### [facility] [address] [place], [address] Calcium [Mass/Vol] 8.9 mg/dL Normal 7.6-11.0 [facility] Comment on above: Performed By: #### L 500.3400, L504.2610, L501.3620, L503.7505, L500.2500 #### [facility] [address] [place], [address] Chloride [Moles/Vol] 105 mmol/L Normal 98-108 [facility] Comment on above: Performed By: #### L 500.3400, L504.2610, L501.3620, L503.7505, L500.2500 #### [facility] [address] [place], [address] CO2 [Moles/Vol] 23.5 mmol/L Normal 21.0-32.0 [facility] Comment on above: Performed By: #### L 500.3400, L504.2610, L501.3620, L503.7505, L500.2500 #### [facility] [address] [place], [address] Creatinine [Mass/Vol] 0.45 mg/dL Low 0.70-1.20 [facility] Comment on above: Performed By: #### L 500.3400, L504.2610, L501.3620, L503.7505, L500.2500 #### [facility] [address] [place], [address] GAP 11 Normal 5-15 [facility] Comment on above: Performed By: #### L 500.3400, L504.2610, L501.3620, L503.7505, L500.2500 #### [facility] [address] [place], [address] GFR/1.73 sq M.predicted among non-blacks MDRD (S/P/Bld) [Vol rate/Area] 114 mL/min/{1.73_m2} Normal >60 [facility] Comment on above: Result Comment: mL/m in/1.73m2 CKD-EPI Creatinine Equation (2020) Performed By: #### L 500.3400, L504.2610, L501.3620, L503.7505, L500.2500 #### [facility] [address] [place], [address] Glucose [Mass/Vol] 93 mg/dL Normal 70-99 [facility] Comment on above: Performed By: #### L 500.3400, L504.2610, L501.3620, L503.7505, L500.2500 #### [facility] [address] [place], [address] Potassium [Moles/Vol] 3.5 mmol/L Normal 3.3-5.1 [facility] Comment on above: Performed By: #### L 500.3400, L504.2610, L501.3620, L503.7505, L500.2500 #### [facility] [address] [place], [address] Sodium [Moles/Vol] 140 mmol/L Normal 133-145 [facility] Comment on above: Performed By: #### L 500.3400, L504.2610, L501.3620, L503.7505, L500.2500 #### [facility] [address] [place], [address] Urea nitrogen [Mass/Vol] 6 mg/dL Normal 4-19 [facility] Comment on above: Performed By: #### L 500.3400, L504.2610, L501.3620, L503.7505, L500.2500 #### [facility] [address] [place], [address] L503.7505on 10-10-2024 Natriuretic peptide B (Bld) [Mass/Vol] 312 pg/mL Normal <=900 [facility] Comment on above: Result Comment: Hear t Failure Unlikely: < 300 pg/mL Heart Failure Likely < 50 Years: > 450 pg/mL 50-75 Years: > 900 pg/mL >75 Years: > 1800 pg/mL Performed By: #### L 500.3400, L504.2610, L501.3620, L503.7505, L500.2500 #### [facility] [address] [place], [address] LDHon 10-10-2024 LDH 1317 U/L High 84-246 [facility] Comment on above: Order Comment: 1 Performed By: #### L 3000.0375 #### [facility] [address] [place], [address] Liver Profileon 10-10-2024 Albumin [Mass/Vol] 3.0 g/dL Low 3.5-5.0 [facility] Comment on above: Performed By: #### L 500.3400, L504.2610, L501.3620, L503.7505, L500.2500 #### [facility] [address] [place], [address] ALK PHOS 53 U/L Normal 35-104 [facility] Comment on above: Performed By: #### L 500.3400, L504.2610, L501.3620, L503.7505, L500.2500 #### [facility] [address] [place], [address] ALT [Catalytic activity/Vol] 411 U/L High <=34 [facility] Comment on above: Performed By: #### L 500.3400, L504.2610, L501.3620, L503.7505, L500.2500 #### [facility] [address] [place], [address] AST [Catalytic activity/Vol] 478 U/L High <=31 [facility] Comment on above: Performed By: #### L 500.3400, L504.2610, L501.3620, L503.7505, L500.2500 #### [facility] [address] [place], [address] Bilirubin [Mass/Vol] 0.64 mg/dL Normal 0.00-1.30 [facility] Comment on above: Performed By: #### L 500.3400, L504.2610, L501.3620, L503.7505, L500.2500 #### [facility] [address] [place], [address] Bilirubin.direct [Mass/Vol] 0.29 mg/dL Normal 0.00-0.30 [facility] Comment on above: Performed By: #### L 500.3400, L504.2610, L501.3620, L503.7505, L500.2500 #### [facility] [address] [place], [address] Globulin (S) [Mass/Vol] 2.5 g/dL Normal 2.2-4.2 [facility] Comment on above: Performed By: #### L 500.3400, L504.2610, L501.3620, L503.7505, L500.2500 #### [facility] [address] [place], [address] T PROT 5.5 g/dL Low 5.9-8.4 [facility] Comment on above: Performed By: #### L 500.3400, L504.2610, L501.3620, L503.7505, L500.2500 #### [facility] [address] [place], [address] Bilirubin directOrdered By: Bayron Leal on 10-08-2024 Bilirubin.direct [Mass/Vol] 0.21 mg/dL 0.00-0.30 [facility] Bilirubin, totalOrdered By: Bayron Leal on 10-08-2024 Bilirubin [Mass/Vol] 0.44 mg/dL 0.00-1.30 [facility] CPK Total, Creatine Kinaseon 10-08-2024 CPK TOTAL 3464 U/L High 24-195 [facility] Comment on above: Performed By: #### L 3000.0375 #### [facility] [address] [place], [address] Discharge Instructionon Discharge Instruction [facility] Medical Records Department [address] [place] [address] Instructions for Home/Discharge Instructions 10/08/24 0817 MR#: [id number] Acct: [id number] Name: TAMARA JOSE Rep #: [id number] : 1970 54 From: Bayron Leal DO PCP: LAEXA Bob, VERA-C Status:ADM IN Discharge Instructions Diet Discharge Diet: No restrictions DC O2, CPAP, BIPAP needs Home O2 Discharge instructions: No Dressing / Incision Discharge Activity: Return to Normal Activity Weight Bearing Status: Full weight bearing Follow Up Care Test Results: Test results from this visit will be discussed in further detail at your follow-up appointment, if applicable. Discharge Plan Admission Admit Date/Time: 10/06/24 17:28 Primary Reason for Your Visit: Rhabdomyolysis Attending Provider: Bayron Leal Primary Care Provider: Blanquita Lim Consulting Providers: Estrella Gross Instructions Patient Instructions: ED UTIs Women Discharge Orders/Prescriptions Prescriptions: Continued lisinopril 40 mg tablet 40 mg PO QDAY omeprazole 20 mg capsule,delayed release(DR/EC) 20 mg PO QDAY cholecalciferol (vitamin D3) [Vitamin D3] 50 mcg (2,000 unit) capsule 100 mcg PO QDAY fluticasone propionate 50 mcg/actuation spray,suspension 2 spray intranasal DAILY amlodipine 10 mg tablet 10 mg PO QDAY cranberry 500 mg capsule 500 mg PO DAILY Rx Instructions: administer with a meal Discontinued vitamin E (dl, acetate) 180 mg (400 unit) capsule 180 mg PO QDAY aspirin [Nuvia Chewable Aspirin] 81 mg tablet,chewable 1 tab PO DAILY atorvastatin 10 mg tablet 10 mg PO QHS simvastatin 20 mg tablet 20 mg PO QHS Referrals / Follow Up: Blanquita Lim, EMPLOYMENT OFFICE CLERK-C [Primary Care Provider] - In 1 Week (You will need your liver function tests redrawn, a BMP, and a CPK drawn) Disposition Disposition (needs filled in before D/C Order can be placed): Home, Self Care 10/08/24 0821 Bayron Leal DO CC: [facility] EMPLOYMENT OFFICE CLERK-C Blanquita Lim; Dr. Estrella Gross MD Signed Normal [facility] Hepatitis Panel Acuteon COMMENT Comment Normal . [facility] Comment on above: Result Comment: Not infected with HCV unless early or acute infection is suspected (which may be delayed in an immunocompromised individual), or other evidence exists to indicate HCV infection. Performed at: [facility] [id number] Log Inspector: Kevin Prasad PhD, Phone: [phone] Performed By: #### L 3000.0375 #### [facility] [address] [place], [place], [id number] HEP B CORE,IgM Negative Normal Negative [facility] Comment on above: Performed By: #### L 3000.0375 #### [facility] [address] [place], [place], [address] HEP B SURF AG Negative Normal Negative [facility] Comment on above: Performed By: #### L 3000.0375 #### [facility] [address] [place], [place], [id number] HEP C VIRUS AB Non-Reactive Normal Non Reactive [facility] Comment on above: Performed By: #### L 3000.0375 #### [facility] [address] [place], [place], [address] HEPATITIS A-IgM Negative Normal Negative [facility] Comment on above: Result Comment: A ne gative anti-HAV IgM result suggests no recent or current HAV infection. Performed By: #### L 3000.0375 #### [facility] [address] [place], [place], [address] Laboratory - Chemistry and C hemistry - challengeOrdered By: Bayron Leal on 10-08-2024 AST [Catalytic activity/Vol] 316 U/L High <32 [facility] Liver Profileon 10-08-2024 Albumin [Mass/Vol] 2.7 g/dL Low 3.5-5.0 [facility] Comment on above: Performed By: #### L 3000.0375 #### [facility] [address] [place], [address] ALK PHOS 47 U/L Normal 35-104 [facility] Comment on above: Performed By: #### L 3000.0375 #### [facility] [address] [place], [address] ALT [Catalytic activity/Vol] 295 U/L High <=34 [facility] Comment on above: Performed By: #### L 3000.0375 #### [facility] [address] [place], [address] AST [Catalytic activity/Vol] 316 U/L High <=31 [facility] Comment on above: Performed By: #### L 3000.0375 #### [facility] [address] [place], [address] Bilirubin [Mass/Vol] 0.44 mg/dL Normal 0.00-1.30 [facility] Comment on above: Performed By: #### L 3000.0375 #### [facility] [address] [place], [address] Bilirubin.direct [Mass/Vol] 0.21 mg/dL Normal 0.00-0.30 [facility] Comment on above: Performed By: #### L 3000.0375 #### [facility] [address] [place], [address] Globulin (S) [Mass/Vol] 2.3 g/dL Normal 2.2-4.2 [facility] Comment on above: Performed By: #### L 3000.0375 #### [facility] [address] [place], [place], [address] T PROT 5.0 g/dL Low 5.9-8.4 [facility] Comment on above: Performed By: #### L 3000.0375 #### [facility] [address] [place], [place], [address] Serum globulin measurementOr dered By: Bayron Leal on 10-08-2024 Globulin (S) [Mass/Vol] 2.3 g/dL 2.2-4.2 [facility] Serum or plasma alanine reynoso otransferase (ALT) measurementOrdered By: Bayron Leal on 10-08-2024 ALT [Catalytic activity/Vol] 295 U/L High <35 [facility] Serum or plasma albumin anish urement (mass/volume)Ordered By: Bayron Leal on 10-08-2024 Albumin [Mass/Vol] 2.7 g/dL Low 3.5-5.0 [facility] Serum or plasma alkaline brian sphatase measurementOrdered By: Bayron Leal on 10-08-2024 ALP [Catalytic activity/Vol] 47 U/L 35-104 [facility] Serum or plasma creatine kin ase activityOrdered By: Bayron Leal on 10-08-2024 CK [Catalytic activity/Vol] 3464 U/L High 24-195 [facility] Total proteinOrdered By: Kristen Leal on 10-08-2024 Protein [Mass/Vol] 5.0 g/dL Low 5.9-8.4 [facility] Urine Cultureon 10-08-2024 [facility] Escherichia coli [place] Count >100,000 Escherichia coli: REACTION Ampicillin Islt KATHRYN 8 Ampicillin+Sulbac Islt KATHRYN 4 S Cefepime Islt KATHRYN <=0.12 S cefTRIAXone Islt KATHRYN <=0.25 S Ciprofloxacin Islt KATHRYN <=0.06 S B-Lactamase Extended Susc Islt NEG Gentamicin Islt KATHRYN <=1 S levoFLOXacin Islt KATHRYN <=0.12 S Meropenem Islt KATHRYN <=0.25 S Nitrofurantoin Islt KATHRYN <=16 S Pip+Tazo Islt KATHRYN <=4 S TMP SMX Islt KATHRYN <=20 S Normal [facility] Comment on above: Performed By: #### M 100.2200 #### [facility] [address] [place], [address] Absolute lymphocyte countOrd ered By: Estrella Gross on 10-07-2024 Lymphocytes Auto (Unsp spec) [#/Vol] 0.70 10*3/uL Low 0.83-4.51 [facility] Absolute neutrophil countOrd ered By: Estrella Gross on 10-07-2024 Neutrophils (Bld) [#/Vol] 3.7 10*3/uL 2.0-7.7 [facility] Anion gap in Serum or Plasma Ordered By: Estrella Gross on 10-07-2024 Anion gap [Moles/Vol] 8 mmol/L 5-15 [facility] Automated lymphocyte count a s percentage of total leukocytesOrdered By: Estrella Gross on 10-07-2024 Lymphocytes/100 WBC Auto (Unsp spec) 12.4 % Low 19-41 [facility] BUN/creatinine ratioOrdered By: Estrella Gross on 10-07-2024 Urea nitrogen/Creatinine [Mass ratio] 13.1 mg/mg 10-20 [facility] Basophil percentageOrdered B y: Estrella Gross on 10-07-2024 Basophils/100 WBC (Bld) 0.7 % 0-1 [facility] CBC W/Diff, Automatedon Absolute Lymph 0.70 X10 3/uL Low 0.83-4.51 [facility] Comment on above: Performed By: #### L 3000.0375 #### [facility] [address] [place], [address] Absolute Neut 3.7 X10 3/uL Normal 2.0-7.7 [facility] Comment on above: Performed By: #### L 3000.0375 #### [facility] [address] [place], [address] Basophils/100 WBC (Bld) 0.7 % Normal 0-1 [facility] Comment on above: Performed By: #### L 3000.0375 #### [facility] [address] [place], [address] Eosinophils/100 WBC (Bld) 15.2 % High 0-5 [facility] Comment on above: Performed By: #### L 3000.0375 #### [facility] [address] [place], [address] Erythrocyte distribution width (RBC) [Ratio] 15.2 % High 11.6-14.6 [facility] Comment on above: Performed By: #### L 3000.0375 #### [facility] [address] [place], [address] Hematocrit (Bld) [Volume fraction] 36.3 % Low 37-47 [facility] Comment on above: Performed By: #### L 3000.0375 #### [facility] [address] [place], [address] Hemoglobin (Bld) [Mass/Vol] 12.0 g/dL Normal 12.0-15.0 [facility] Comment on above: Performed By: #### L 3000.0375 #### [facility] [address] [place], [address] IG% 0.400 Normal 0.0-0.9 [facility] Comment on above: Result Comment: IG% - Immature Granulocytes (promyelocytes, myelocytes and metamyelocytes) > 1% indicates that a LEFT SHIFT is Present. Performed By: #### L 3000.0375 #### [facility] [address] [place], [address] Lymphocytes/100 WBC (Bld) 12.4 % Low 19-41 [facility] Comment on above: Performed By: #### L 3000.0375 #### [facility] [address] [place], [address] MCH (RBC) [Entitic mass] 31.3 pg Normal 27.0-32.0 [facility] Comment on above: Performed By: #### L 3000.0375 #### [facility] [address] [place], [address] MCHC (RBC) [Mass/Vol] 33.1 g/dL Normal 32-36 [facility] Comment on above: Performed By: #### L 3000.0375 #### [facility] [address] [place], [address] MCV (RBC) [Entitic vol] 94.8 fL Normal 81-99 [facility] Comment on above: Performed By: #### L 3000.0375 #### [facility] [address] [place], [address] Monocytes/100 WBC (Bld) 6.9 % Normal 0-10 [facility] Comment on above: Performed By: #### L 3000.0375 #### [facility] [address] [place], [address] Neutrophils/100 WBC (Bld) 64.4 % Normal 47-70 [facility] Comment on above: Performed By: #### L 3000.0375 #### [facility] [address] [place], [address] Nucleated RBC (Bld) [#/Vol] 0 10*3/uL Normal 0-5 [facility] Comment on above: Performed By: #### L 3000.0375 #### [facility] [address] [place], [address] Platelet mean volume (Bld) [Entitic vol] 11.9 fL Normal 6.2-12.0 [facility] Comment on above: Performed By: #### L 3000.0375 #### [facility] [address] [place], [address] Platelets (Bld) [#/Vol] 222 10*3/uL Normal 150-450 [facility] Comment on above: Performed By: #### L 3000.0375 #### [facility] [address] [place], [address] RBC (Bld) [#/Vol] 3.83 10*6/uL Low 4.2-5.4 [facility] Comment on above: Performed By: #### L 3000.0375 #### [facility] [address] [place], [address] RDW SD 52.6 fl High 35.1-43.9 [facility] Comment on above: Performed By: #### L 3000.0375 #### [facility] [address] [place], [address] WBC (Bld) [#/Vol] 5.7 10*3/uL Normal 4.4-11.0 [facility] Comment on above: Performed By: #### L 3000.0375 #### [facility] [address] [place], [address] CPK Total, Creatine Kinaseon 10-07-2024 CPK TOTAL 3084 U/L High 24-195 [facility] Comment on above: Performed By: #### L 3000.0375 #### [facility] [address] [place], [address] Carbon dioxide, total [Moles /volume] in Central venous bloodOrdered By: Estrella Gross on 10-07-2024 CO2 [Moles/Vol] 23.0 mmol/L 21.0-32.0 [facility] Chloride assayOrdered By: Kameron Gross on 10-07-2024 Chloride [Moles/Vol] 108 mmol/L 98-108 [facility] Comprehensive Metabolic Prof ilon 10-07-2024 Albumin [Mass/Vol] 2.8 g/dL Low 3.5-5.0 [facility] Comment on above: Performed By: #### L 3000.0375 #### [facility] [address] [place], [address] Albumin/Globulin [Mass ratio] 1.3 {ratio} Normal 0.9-2.4 [facility] Comment on above: Performed By: #### L 3000.0375 #### [facility] [address] [place], [address] ALK PHOS 46 U/L Normal 35-104 [facility] Comment on above: Performed By: #### L 3000.0375 #### [facility] [address] [place], [address] ALT [Catalytic activity/Vol] 283 U/L High <=34 [facility] Comment on above: Performed By: #### L 3000.0375 #### [facility] [address] [place], [address] AST [Catalytic activity/Vol] 325 U/L High <=31 [facility] Comment on above: Performed By: #### L 3000.0375 #### [facility] [address] [place], [address] Bilirubin [Mass/Vol] 0.50 mg/dL Normal 0.00-1.30 [facility] Comment on above: Performed By: #### L 3000.0375 #### [facility] [address] [place], [address] BUN/CRE 13.1 RATIO Normal 10-20 [facility] Comment on above: Performed By: #### L 3000.0375 #### [facility] [address] [place], [address] Calcium [Mass/Vol] 8.0 mg/dL Normal 7.6-11.0 [facility] Comment on above: Performed By: #### L 3000.0375 #### [facility] [address] [place], [address] Chloride [Moles/Vol] 108 mmol/L Normal 98-108 [facility] Comment on above: Performed By: #### L 3000.0375 #### [facility] [address] [place], [address] CO2 [Moles/Vol] 23.0 mmol/L Normal 21.0-32.0 [facility] Comment on above: Performed By: #### L 3000.0375 #### [facility] [address] [place], [address] Creatinine [Mass/Vol] 0.45 mg/dL Low 0.70-1.20 [facility] Comment on above: Performed By: #### L 3000.0375 #### [facility] [address] [place], [address] ECRCL 165.51 ml/min Normal 50-250 [facility] Comment on above: Performed By: #### L 3000.0375 #### [facility] [address] [place], [address] GAP 8 Normal 5-15 [facility] Comment on above: Performed By: #### L 3000.0375 #### [facility] [address] [place], [address] GFR/1.73 sq M.predicted among non-blacks MDRD (S/P/Bld) [Vol rate/Area] 114 mL/min/{1.73_m2} Normal >60 [facility] Comment on above: Result Comment: mL/m in/1.73m2 CKD-EPI Creatinine Equation (2020) Performed By: #### L 3000.0375 #### [facility] [address] [place], [address] Globulin (S) [Mass/Vol] 2.1 g/dL Low 2.2-4.2 [facility] Comment on above: Performed By: #### L 3000.0375 #### [facility] [address] [place], [address] Glucose [Mass/Vol] 102 mg/dL High 70-99 [facility] Comment on above: Performed By: #### L 3000.0375 #### [facility] [address] [place], [address] Potassium [Moles/Vol] 3.3 mmol/L Normal 3.3-5.1 [facility] Comment on above: Performed By: #### L 3000.0375 #### [facility] [address] [place], [address] Sodium [Moles/Vol] 139 mmol/L Normal 133-145 [facility] Comment on above: Performed By: #### L 3000.0375 #### [facility] [address] [place], [address] T PROT 4.9 g/dL Low 5.9-8.4 [facility] Comment on above: Performed By: #### L 3000.0375 #### [facility] [address] [place], [address] Urea nitrogen [Mass/Vol] 6 mg/dL Normal 4-19 [facility] Comment on above: Performed By: #### L 3000.0375 #### [facility] [address] [place], [address] Eosinophil percentageOrdered By: Estrella Gross on 10-07-2024 Eosinophils/100 WBC (Bld) 15.2 % High 0-5 [facility] Erythrocyte distribution wid th ratioOrdered By: Estrella Gross on 10-07-2024 Erythrocyte distribution width (RBC) [Ratio] 15.2 % High 11.6-14.6 [facility] Erythrocyte distribution wid th standard deviationOrdered By: Estrella Gross on 10-07-2024 Erythrocyte distribution width (RBC) [Ratio] 52.6 fl High 35.1-43.9 [facility] Glomerular filtration rate ( GFR) estimation/1.73 sq m using serum, plasma, or whole bOrdered By: Estrella Gross on 10-07-2024 GFR/1.73 sq M.predicted among non-blacks MDRD (S/P/Bld) [Vol rate/Area] 114 mL/min/{1.73_m2} >60 [facility] Comment on above: mL/min/1.73m2 CKD-EP I Creatinine Equation (2020) Hematocrit Auto (Bld) [Volum e fraction]Ordered By: Estrella Gross on 10-07-2024 Hematocrit (Bld) [Volume fraction] 36.3 % Low 37-47 [facility] Hemoglobin measurementOrdere d By: Estrella Gross on 10-07-2024 Hemoglobin (Bld) [Mass/Vol] 12.0 g/dL 12.0-15.0 [facility] Immature granulocytes/100 WB C Auto (Bld)Ordered By: Estrella Gross on 10-07-2024 Immature granulocytes/100 WBC (Bld) 0.400 % 0.0-0.9 [facility] Comment on above: IG% - Immature Granu locytes (promyelocytes, myelocytes and metamyelocytes) > 1% indicates that a LEFT SHIFT is Present. International normalized rat io (INR) calculationOrdered By: Estrella Gross on 10-07-2024 INR Coag (Bld) [Relative time] 1.2 {INR} [facility] LDHon 10-07-2024 LDH 963 U/L High 84-246 [facility] Comment on above: Performed By: #### L 3000.0375 #### [facility] [address] [place] [address], [address] Lactate dehydrogenase (LDH) measurementOrdered By: Estrella Gross on 10-07-2024 LDH [Catalytic activity/Vol] 963 U/L High 84-246 [facility] MCV (mean corpuscular volume ) determinationOrdered By: Estrella Gross on 10-07-2024 MCV (RBC) [Entitic vol] 94.8 fL 81-99 [facility] Mean corpuscular hemoglobin (MCH) determinationOrdered By: Estrella Gross on 10-07-2024 MCH (RBC) [Entitic mass] 31.3 pg 27.0-32.0 [facility] Mean corpuscular hemoglobin concentration (MCHC) determinationOrdered By: Estrella Gross on 10-07-2024 MCHC (RBC) [Mass/Vol] 33.1 g/dL 32-36 [facility] Mean platelet volume determi nationOrdered By: Estrella Gross on 10-07-2024 Platelet mean volume (Bld) [Entitic vol] 11.9 fL 6.2-12.0 [facility] Monocyte percentageOrdered B y: Estrella Gross on 10-07-2024 Monocytes/100 WBC (Bld) 6.9 % 0-10 [facility] Neutrophil percentageOrdered By: Estrella Gross on 10-07-2024 Neutrophils/100 WBC (Bld) 64.4 % 47-70 [facility] Nucleated red blood cell per centageOrdered By: Estrella Gross on 10-07-2024 Nucleated RBC/100 WBC (Bld) [Ratio] 0 % 0-5 [facility] Platelet countOrdered By: Kameron Gross on 10-07-2024 Platelets (Bld) [#/Vol] 222 10*3/uL 150-450 [facility] Potassium measurement (mass/ volume)Ordered By: Estrella Gross on 10-07-2024 Potassium (Unsp spec) [Mass/Vol] 3.3 mmol/L 3.3-5.1 [facility] Prothrombin Time w/INRon INR Coag (PPP) [Relative time] 1.2 {INR} Normal [facility] Comment on above: Performed By: #### L 3000.0375 #### [facility] [address] [place], [address] PT Coag (PPP) [Time] 15.7 s High 11.7-14.9 [facility] Comment on above: Performed By: #### L 3000.0375 #### [facility] [address] [place], [address] Prothrombin timeOrdered By: Estrella Gross on 10-07-2024 PT Coag (PPP) [Time] 15.7 s High 11.7-14.9 [facility] RBC Auto (Bld) [#/Vol]Ordere d By: Estrella Gross on 10-07-2024 RBC (Bld) [#/Vol] 3.83 10*6/uL Low 4.2-5.4 [facility] Serum creatinine measurement (mass/volume)Ordered By: Estrella Gross on 10-07-2024 Creatinine [Mass/Vol] 0.45 mg/dL Low 0.70-1.20 [facility] Serum glucose measurement (m ass/volume)Ordered By: Estrella Gross on 10-07-2024 Glucose [Mass/Vol] 102 mg/dL High 70-99 [facility] Serum or plasma albumin/glob ulin mass ratioOrdered By: Estrella Gross on 10-07-2024 Albumin/Globulin [Mass ratio] 1.3 {ratio} 0.9-2.4 [facility] Serum or plasma calcium anish urement (mass/volume)Ordered By: Estrella Gross on 10-07-2024 Calcium [Mass/Vol] 8.0 mg/dL 7.6-11.0 [facility] Serum or plasma urea nitroge n measurement (mass/volume)Ordered By: Estrella Gross on 10-07-2024 Urea nitrogen [Mass/Vol] 6 mg/dL 4-19 [facility] Sodium levelOrdered By: Sharon Gross on 10-07-2024 Sodium [Moles/Vol] 139 mmol/L 133-145 [facility] TSH DL <= 0.005 mIU/L QnOrde red By: Estrella Gross on 10-07-2024 TSH Qn 7.560 uIU/mL High 0.300-4.200 [facility] Thyroid Stim Hormone (TSH)on 10-07-2024 TSH 7.560 uIU/mL High 0.300-4.200 [facility] Comment on above: Performed By: #### L 3000.0375 #### [facility] [address] [place], [place], [address] White blood cell (WBC) count Ordered By: Estrella Gross on 10-07-2024 WBC (Bld) [#/Vol] 5.7 10*3/uL 4.4-11.0 [facility] Abdomen Limitedon 10-06-2024 Abdomen Limited [facility] [address] [place] [address] Abdomen Limited MR#: [id number] Acct: [id number] Name: TAMARA JOSE Rep #: [id number] : 1970 F 54 From: Misha whitten MD PCP: ALEXA Bob, EMPLOYMENT OFFICE CLERK-C Status: REG ER Study: Abdomen Limited Date of Exam: 10/06/24 Exam# [id number] Ordering Dr: Will Silveira DO PROCEDURE: ABDOMEN LIMITED 10/06/2024 REASON FOR EXAM: ELEVATED LIVER ENZYMES, ASSESS FOR LIVER/GALLBLADD COMPARISON: Prior CT scan of the abdomen and pelvis done earlier in the day. FINDINGS: Liver: Fatty infiltration of the liver. The liver is not enlarged. It measures 16.2 cm. Gallbladder: Multiple gallstones are seen. Gallbladder wall is not thickened. Common bile duct: Normal measuring 4 mm. . Pancreas: Normal Other: Visualized portions of the right kidney are unremarkable. No right upper quadrant ascites. US/Abdomen Limited IMPRESSION: Multiple gallstones. Fatty infiltration of the liver. Reading Location: [facility] CC: [facility] EMPLOYMENT OFFICE CLERK-C Blanquita Lim; Dr. Will Silveira DO Vehicle Service Attendant: Signed Normal [facility] Abdomen/Pelvis W IV Cont ONL Yon 10-06-2024 Abdomen/Pelvis W IV Cont ONLY [facility] Imaging Services [address] [place] [address] Abdomen/Pelvis W IV Cont ONLY MR#: [id number] Acct: [id number] Name: TAMARA JOSE Rep #: [id number] : 1970 F 54 From: Khang Robb DO PCP: ALEXA Bob, EMPLOYMENT OFFICE CLERK-C Status: REG ER Study: Abdomen/Pelvis W IV Cont ONLY Date of Exam: Exam# [id number] Ordering Dr: Will Silveira DO PROCEDURE: ABDOMEN/PELVIS W IV CONT ONLY 10/06/2024 REASON FOR EXAM: ABDOMINAL PAIN TECHNIQUE: ABDOMEN/PELVIS W IV CONT ONLY Coronal and Sagittal reconstruction series were provided. CONTRAST: Isovue-300 VOLUME: 94 mL One or more dose reduction techniques were used (e.g., Automated exposure control, adjustment of the mA and/or kV according to patient size, use of iterative reconstruction technique. RADIATION DOSE SUMMARY: CTDlvol: 9.97 in 20.0 mGy DLP: 1059.26 mGycm COMPARISON: None. FINDINGS: Lung bases: Sub segmental ground-glass airspace disease in the left lower lobe. Bilateral dependent atelectasis. The liver, spleen, pancreas, adrenals and kidneys are unremarkable. Gallbladder: Large peripheral calcified stone in the gallbladder Urinary bladder and reproductive organs are unremarkable. Bowel: No acute process. Normal caliber and appearance. Appendix: Normal caliber and appearance. Lymph nodes: No adenopathy. Vasculature: Minimal scattered calcific plaque Peritoneum / Retroperitoneum: No free air or free fluid. Bones: No aggressive bone lesion. CT/Abdomen/Pelvis W IV Cont ONLY IMPRESSION: No CT evidence of acute process in the abdomen or pelvis. Reading Location[facility] CC: [facility] EMPLOYMENT OFFICE CLERKJasvir Lim; Dr. Will Silveira DO Vehicle Service Attendant: Signed Normal [facility] Absolute lymphocyte countOrd ered By: Will Silveira on 10-06-2024 Lymphocytes Auto (Unsp spec) [#/Vol] 0.49 10*3/uL Low 0.83-4.51 [facility] Absolute neutrophil countOrd ered By: Will Silveira on 10-06-2024 Neutrophils (Bld) [#/Vol] 4.9 10*3/uL 2.0-7.7 [facility] Anion gap in Serum or Plasma Ordered By: Will Silveira on 10-06-2024 Anion gap [Moles/Vol] 11 mmol/L 5-15 [facility] Automated lymphocyte count a s percentage of total leukocytesOrdered By: Will Silveira on 10-06-2024 Lymphocytes/100 WBC Auto (Unsp spec) 7.6 % Low 19-41 [facility] BUN/creatinine ratioOrdered By: Will Silveira on 10-06-2024 Urea nitrogen/Creatinine [Mass ratio] 15.1 mg/mg 10- [facility] Basic Metabolic Profile (BMP )on 10-06-2024 BUN/CRE 15.1 RATIO Normal - [facility] Comment on above: Performed By: #### L 504.2610, [id number] #### [facility] [address] [place], [address] Calcium [Mass/Vol] 8.9 mg/dL Normal 7.6-11.0 [facility] Comment on above: Performed By: #### L [id number], [id number] #### [facility] [address] [place], [address] Chloride [Moles/Vol] 103 mmol/L Normal 98-108 [facility] Comment on above: Performed By: #### L 504.2610, [id number] #### [facility] [address] [place], [address] CO2 [Moles/Vol] 24.7 mmol/L Normal 21.0-32.0 [facility] Comment on above: Performed By: #### L [id number], [id number] #### [facility] [address] [place], [address] Creatinine [Mass/Vol] 0.51 mg/dL Low 0.70-1.20 [facility] Comment on above: Performed By: #### L 504.2610, [id number] #### [facility] [address] [place], [address] ECRCL 146.05 ml/min Normal 50-250 [facility] Comment on above: Performed By: #### L 504.2610, [id number] #### [facility] [address] [place], [address] GAP 11 Normal 5-15 [facility] Comment on above: Performed By: #### L 504.2610, [id number] #### [facility] [address] [place], [address] GFR/1.73 sq M.predicted among non-blacks MDRD (S/P/Bld) [Vol rate/Area] 110 mL/min/{1.73_m2} Normal >60 [facility] Comment on above: Result Comment: mL/m in/1.73m2 CKD-EPI Creatinine Equation (2020) Performed By: #### L 504.2610, [id number] #### [facility] [address] [place], [address] Glucose [Mass/Vol] 110 mg/dL High 70-99 [facility] Comment on above: Performed By: #### L 504.2610, [id number] #### [facility] [address] [place], [address] Potassium [Moles/Vol] 3.6 mmol/L Normal 3.3-5.1 [facility] Comment on above: Performed By: #### L 504.2610, [id number] #### [facility] [address] [place], [address] Sodium [Moles/Vol] 139 mmol/L Normal 133-145 [facility] Comment on above: Performed By: #### L 504.2610, [id number] #### [facility] [address] [place], [address] Urea nitrogen [Mass/Vol] 8 mg/dL Normal 4-19 [facility] Comment on above: Performed By: #### L 504.2610, [id number] #### [facility] [address] [place], [address] Basophil percentageOrdered B y: Will Silveira on 10-06-2024 Basophils/100 WBC (Bld) 0.6 % 0-1 [facility] Bilirubin Test strip Ql (U)O rdered By: Will Silveira on 10-06-2024 Bilirubin Ql (U) Negative Negative [facility] Bilirubin directOrdered By: Will Silveira on 10-06-2024 Bilirubin.direct [Mass/Vol] 0.36 mg/dL High 0.00-0.30 [facility] Bilirubin, totalOrdered By: Will Silveira on 10-06-2024 Bilirubin [Mass/Vol] 0.75 mg/dL 0.00-1.30 [facility] CBC W/Diff, Automatedon Absolute Lymph 0.49 X10 3/uL Low 0.83-4.51 [facility] Comment on above: Performed By: #### L 504.2610, [id number] #### [facility] [address] [place], [address] Absolute Neut 4.9 X10 3/uL Normal 2.0-7.7 [facility] Comment on above: Performed By: #### L 504.2610, [id number] #### [facility] [address] [place], [address] Basophils/100 WBC (Bld) 0.6 % Normal 0-1 [facility] Comment on above: Performed By: #### L 504.2610, [id number] #### [facility] [address] [place], [address] Eosinophils/100 WBC (Bld) 10.4 % High 0-5 [facility] Comment on above: Performed By: #### L 504.2610, [id number] #### [facility] [address] [place], [address] Erythrocyte distribution width (RBC) [Ratio] 15.0 % High 11.6-14.6 [facility] Comment on above: Performed By: #### L 504.2610, [id number] #### [facility] [address] [place], [address] Hematocrit (Bld) [Volume fraction] 41.7 % Normal 37-47 [facility] Comment on above: Performed By: #### L 504.2610, [id number] #### [facility] [address] [place], [address] Hemoglobin (Bld) [Mass/Vol] 13.7 g/dL Normal 12.0-15.0 [facility] Comment on above: Performed By: #### L 504.2610, [id number] #### [facility] [address] [place], [address] IG% 0.200 Normal 0.0-0.9 [facility] Comment on above: Result Comment: IG% - Immature Granulocytes (promyelocytes, myelocytes and metamyelocytes) > 1% indicates that a LEFT SHIFT is Present. Performed By: #### L 504.2610, [id number] #### [facility] [address] [place], [address] Lymphocytes/100 WBC (Bld) 7.6 % Low 19-41 [facility] Comment on above: Performed By: #### L 504.2610, [id number] #### [facility] [address] [place], [address] MCH (RBC) [Entitic mass] 30.7 pg Normal 27.0-32.0 [facility] Comment on above: Performed By: #### L 504.2610, [id number] #### [facility] [address] [place], [address] MCHC (RBC) [Mass/Vol] 32.9 g/dL Normal 32-36 [facility] Comment on above: Performed By: #### L 504.2610, [id number] #### [facility] [address] [place], [address] MCV (RBC) [Entitic vol] 93.5 fL Normal 81-99 [facility] Comment on above: Performed By: #### L 504.2610, [id number] #### [facility] [address] [place], [address] Monocytes/100 WBC (Bld) 5.9 % Normal 0-10 [facility] Comment on above: Performed By: #### L 504.2610, [id number] #### [facility] [address] [place], [address] Neutrophils/100 WBC (Bld) 75.3 % High 47-70 [facility] Comment on above: Performed By: #### L 504.2610, [id number] #### [facility] [address] [place], [address] Nucleated RBC (Bld) [#/Vol] 0 10*3/uL Normal 0-5 [facility] Comment on above: Performed By: #### L 504.2610, [id number] #### [facility] [address] [place], [address] Platelet mean volume (Bld) [Entitic vol] 11.6 fL Normal 6.2-12.0 [facility] Comment on above: Performed By: #### L 504.2610, [id number] #### [facility] [address] [place], [address] Platelets (Bld) [#/Vol] 247 10*3/uL Normal 150-450 [facility] Comment on above: Performed By: #### L 504.2610, [id number] #### [facility] [address] [place], [address] RBC (Bld) [#/Vol] 4.46 10*6/uL Normal 4.2-5.4 [facility] Comment on above: Performed By: #### L 504.2610, [id number] #### [facility] [address] [place], [address] RDW SD 52.3 fl High 35.1-43.9 [facility] Comment on above: Performed By: #### L 504.2610, [id number] #### [facility] [address] [place], [address] WBC (Bld) [#/Vol] 6.4 10*3/uL Normal 4.4-11.0 [facility] Comment on above: Performed By: #### L 504.2610, [id number] #### [facility] [address] [place], [address] CPK Total, Creatine Kinaseon 10-06-2024 CPK TOTAL 5727 U/L High 24-195 [facility] Comment on above: Performed By: #### L 504.2610, [id number] #### [facility] [address] [place], [address] Carbon dioxide, total [Moles /volume] in Central venous bloodOrdered By: Will Silveira on 10-06-2024 CO2 [Moles/Vol] 24.7 mmol/L 21.0-32.0 [facility] Chloride assayOrdered By: Du Silveira on 10-06-2024 Chloride [Moles/Vol] 103 mmol/L 98-108 [facility] Emergency Department Summary on 10-06-2024 Emergency Department Summary [facility] Medical Records Department [address] [place] [address] Emergency Department Summary 10/06/24 MR#: [id number] Acct: [id number] Name: TAMARA JOSE Rep #: [id number] : 1970 54 From: Will Silveira DO PCP: Blanquita Lim Bishnu, EMPLOYMENT OFFICE CLERK-C Status:REG ER Location: ED HPI History of Present Illness Chief Complaint: Abd Pain Narrative Narrative: Chief complaint and HPI: Abdominal pain and nausea. 54-year-old female with past medical history of reported 3 kidneys, HTN, GERD, HLD presents for evaluation of abdominal pain and nausea. Patient states for the past 2 weeks she has felt unwell. States it started with URI symptoms and a cough. States that this resolved and now she has had general abdominal pain, nausea, decreased appetite, diarrhea. She states that her taste is different and that she often feels full. Patient states maybe it is my gallbladder. Denies any fever, chills, shortness of breath, chest pain, emesis, dysuria. Review of systems: See HPI Medications: As listed on the chart Allergies: As listed on the chart PFSH: Per chart Vital signs: As listed on the chart. Reviewed. Physical exam: Gen: A O x3, NAD Head: Normocephalic, atraumatic Eyes: No sclera icterus, conjunctiva clear ENT: Moist mucous membranes Neck: Trachea midline, No JVD CV: RRR, no murmurs, no peripheral edema Resp: Lungs CTA BL, no w/r/c GI: Abd soft, non-distended, mildly tender to palpation diffusely, no r/r/g : No CVA tenderness Musc: Full ROM, no deformity Skin: Warm, dry Neuro: Alert, oriented, grossly intact, sensation intact Psych: Cooperative, appropriate mood and affect [facility] Medical History Hyperlipidemia Wears hearing aid Post-menopausal History of steroid therapy Gastric reflux Non-smoker History of edema History of stress test Hypertension History of broken leg Kidney anomaly, 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) History of kidney problems delivery delivered Home Medications ???Medication ???Instructions ???Recorded ???Last Taken ???Type cholecalciferol (vitamin D3) 50 100 mcg PO QDAY 07/13/23 10/10/23 History mcg (2,000 unit) capsule (Vitamin D3) lisinopril 40 mg tablet 40 mg PO QDAY 07/13/23 10/11/23 Hi story omeprazole 20 mg capsule,delayed 20 mg PO QDAY 07/13/23 10/11/23 Hi story release vitamin E (dl, acetate) 180 mg 180 mg PO QDAY 07/13/23 10/10/23 H istory (400 unit) capsule aspirin 81 mg chewable tablet 1 tab PO DAILY 10/02/23 10/10/23 H istory (Nuvia Chewable Low Dose Aspirin) cranberry 500 mg capsule 500 mg PO DAILY 10/02/23 10/10/23 History fluticasone propionate 50 2 spray intranasal DAILY 04/29/24 Unknown History mcg/actuation nasal spray,suspension amlodipine 10 mg tablet 10 mg PO QDAY 05/23/24 Unknown His tory atorvastatin 10 mg tablet 10 mg PO QHS 10/06/24 Unknown Hist ory cephalexin 500 mg capsule 500 mg PO Q12 #14 CAPSULES 5 Unknown Rx simvastatin 20 mg tablet 20 mg PO QHS 10/06/24 Unknown Hist ory Allergy/AdvReac Type Severity Reaction Status Date / Time bee venom protein (honey bee) Allergy Severe Anaphylaxis Verified 10/06/24 09:11 Sulfa (Sulfonamide Allergy Severe Anaphylaxis Verified 10/06/24 09:11 Antibiotics) Family History Grandmother Breast cancer Father Heart disease Myocardial infarction Mother Pulmonary embolism Social History Smoking Status: Never smoker alcohol intake: never substance use type: does not use EXAM Physical Exam Const Vital Signs: 10/06/24 09:10 10/06/24 11:09 10/06/24 13:00 Temperature 98 F 98.7 F Temperature Source Oral Oral Pulse Rate 95 86 77 Respiratory Rate 16 16 Blood Pressure 115/78 124/86 H 125/80 H Blood Pressure Mean 90 98 95 Pulse Ox 97 96 Oxygen Delivery Method Room Air Room Air 10/06/24 15:00 Temperature Temperature Source Pulse Rate 64 Respiratory Rate 18 Blood Pressure 134/78 H Blood Pressure Mean 96 Pulse Ox 98 Oxygen Delivery Method Room Air MDM MDM MDM Narrative Medical decision making narrative: 54-year-old female with past medical history of reported 3 kidneys, HTN, GERD, HLD presents for evaluation of abdominal pain and nausea. Patient states 2 weeks ago she developed URI symptoms that resolved. Since then she has had generalized abdominal pain, nausea, decreased appetite, diarrhea. Also endorses taste changes. See physical exam findings. On presentation, patient is no acute distress. Vitals are stable. Differential diagnosis includes but is not limited to viral illness, COVID-19 infection, kishor (more content not included)... Normal [facility] Eosinophil percentageOrdered By: [facility] on 10-06-2024 Eosinophils/100 WBC (Bld) 10.4 % High 0-5 [facility] Erythrocyte distribution wid th ratioOrdered By: [facility] on 10-06-2024 Erythrocyte distribution width (RBC) [Ratio] 15.0 % High 11.6-14.6 [facility] Erythrocyte distribution wid th standard deviationOrdered By: [facility] on 10-06-2024 Erythrocyte distribution width (RBC) [Ratio] 52.3 fl High 35.1-43.9 [facility] Glomerular filtration rate ( GFR) estimation/1.73 sq m using serum, plasma, or whole bOrdered By: [facility] on 10-06-2024 GFR/1.73 sq M.predicted among non-blacks MDRD (S/P/Bld) [Vol rate/Area] 110 mL/min/{1.73_m2} >60 [facility] Comment on above: mL/min/1.73m2 CKD-EP I Creatinine Equation (2020) H AND P Exam - [facility] 10-06-2024 H&P Exam - Hospitalist [facility] Medical Records Department [address] [place] [address] H P Exam - Hospitalist 10/06/24 1727 MR#: [id number] Acct: [id number] Name: TAMARA JOSE Ivan Rep #: [id number] : 1970 54 From: Estrella Gross MD PCP: ALEXA Bob, EMPLOYMENT OFFICE CLERK-C Status:REG ER Location: ED HPI - General General Date of Admission: 10/06/24 Date of Service: 10/06/24 Chief Complaint: Weakness, fatigue, aching muscles HPI Narrative TAMARA JOSE, is a 54-year-old female history of GERD, hypertension, hyperlipidemia who presented to [facility] ED 10/06/2024 with abdominal pain and nausea. She has felt unwell for 2 weeks and notes that started with URI symptoms and a cough but that has now resolved and she has been having general abdominal pain, nausea, decreased appetite and diarrhea and also feels her taste is different than usual and she has early satiety. No fevers or chills, shortness of breath, chest pain, emesis, dysuria. In the ED temp 98, heart rate 95 blood pressure 115/78, respiratory rate 16 and pulse ox 97% on room air. CBC with white blood cell count 6.4 and hemoglobin 13.7. BMP with normal kidney function and no electrolyte abnormalities. Lipase of 28. LFTs did reveal a total bili of 0.75 with a direct bili of 0.36, AST 458 and ALT of 404 with normal alk phos. UA with nitrate, leuk esterase, blood cells and 3+ bacteria. COVID and flu negative. CTA of the abdomen and pelvis with no acute process and abdominal ultrasound with multiple gallstones and fatty infiltration of the liver but normal common bile duct, no thickening gallbladder wall, and liver is not enlarged. CK noted to be 5700, LDH 1300. Given abnormal labs and persistent symptoms hospitalist contacted for admission. Patient evaluated at bedside. She reports that for the past 2 to 3 weeks she has had significant fatigue and weakness and muscle aches. She has had some intermittent abdominal pain as well the worst of which was on Sunday and is felt nauseated particularly with eating, had diarrhea as well though this is slowly becoming more formed. Does note that she had a sinus infection several weeks ago and finished Augmentin and azithromycin but has not been on these for couple of weeks. Denies fevers but reports she does get some chilled feeling. No present chest pain or shortness of breath, has some chronic swelling in right lower extremity after she broke it. Denies any changes in urination. 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) History of kidney problems delivery delivered Home Medications ???Medication ???Instructions ???Recorded ???Last Taken ???Type cholecalciferol (vitamin D3) 50 100 mcg PO QDAY 07/13/23 10/10/23 History mcg (2,000 unit) capsule (Vitamin D3) lisinopril 40 mg tablet 40 mg PO QDAY 07/13/23 10/11/23 Hi story omeprazole 20 mg capsule,delayed 20 mg PO QDAY 07/13/23 10/11/23 Hi story release vitamin E (dl, acetate) 180 mg 180 mg PO QDAY 07/13/23 10/10/23 H istory (400 unit) capsule aspirin 81 mg chewable tablet 1 tab PO DAILY 10/02/23 10/10/23 H istory (Nuvia Chewable Low Dose Aspirin) cranberry 500 mg capsule 500 mg PO DAILY 10/02/23 10/10/23 History fluticasone propionate 50 2 spray intranasal DAILY 04/29/24 Unknown History mcg/actuation nasal spray,suspension amlodipine 10 mg tablet 10 mg PO QDAY 05/23/24 Unknown His tory atorvastatin 10 mg tablet 10 mg PO QHS 10/06/24 Unknown Hist ory cephalexin 500 mg capsule 500 mg PO Q12 #14 CAPSULES 5 Unknown Rx simvastatin 20 mg tablet 20 mg PO QHS 10/06/24 Unknown Hist ory Allergy/AdvReac Type Severity Reaction Status Date / Time bee venom protein (honey bee) Allergy Severe Anaphylaxis Verified 10/06/24 09:11 Sulfa (Sulfonamide Allergy Severe Anaphylaxis Verified 10/06/24 09:11 Antibiotics) Family History Grandmother Breast cancer Father Heart disease Myocardial infarction Mother Pulmonary embolism Social History Smoking Status: Never smoker alcohol intake: never substance use type: does not use ROS ROS Narrative General: Sometimes will feel hot and cold but no overt fever HENT: Denies headache, did have sinus infection with the symptoms improved EYES: Denies changes in vision Resp: Denies cough, denies shortness of breath C (more content not included)... Normal [facility] Hematocrit Auto (Bld) [Volum e fraction]Ordered By: Will Silveira on 10-06-2024 Hematocrit (Bld) [Volume fraction] 41.7 % 37-47 [facility] Hemoglobin measurementOrdere d By: Will Silveira on 10-06-2024 Hemoglobin (Bld) [Mass/Vol] 13.7 g/dL 12.0-15.0 [facility] Hyaline casts LM.LPF (Urine sed) [#/Area]Ordered By: Will Silveira on 10-06-2024 Hyaline casts (Urine sed) [#/Area] 0 /[LPF] 0-5 [facility] Immature granulocytes/100 WB C Auto (Bld)Ordered By: Will Silveira on 10-06-2024 Immature granulocytes/100 WBC (Bld) 0.200 % 0.0-0.9 [facility] Comment on above: IG% - Immature Granu locytes (promyelocytes, myelocytes and metamyelocytes) > 1% indicates that a LEFT SHIFT is Present. Influenza virus A and B and SARS-CoV-2 (COVID-19) and Respiratory syncytial virus RNAOrdered By: Will Silveira on 10-06-2024 SARS-CoV-2 (COVID-19) RNA ALISON+probe Ql (Unsp spec) [facility] Ketones Test strip Ql (U)Ord ered By: Will Silveira on 10-06-2024 Ketones Ql (U) Negative Negative [facility] LDHon 10-06-2024 LDH 1314 U/L High 84-246 [facility] Comment on above: Performed By: #### L 504.2610, L501.3620 #### [facility] [address] [place] [address], [address] Laboratory - Chemistry and C hemistry - challengeOrdered By: Will Silveira on 10-06-2024 AST [Catalytic activity/Vol] 458 U/L High <32 [facility] Lactate dehydrogenase (LDH) measurementOrdered By: Will Silveira on 10-06-2024 LDH [Catalytic activity/Vol] 1314 U/L High 84-246 [facility] Lipaseon 10-06-2024 Lipase [Catalytic activity/Vol] 28 U/L Normal 13-75 [facility] Comment on above: Result Comment: Cornelius ace note: LIPASE revised reference range effective 22. New Lipase methodology. Expected to produce lower values than the previous assay method. NEW Reference Range: 13 - 75 U/L Performed By: #### L 504.2610, L501.3620 #### [facility] [address] [place], [address] Lipase measurementOrdered By : Will Silveira on 10-06-2024 Lipase [Catalytic activity/Vol] 28 U/L 13-75 [facility] Comment on above: Please note:LIPASE r evised reference range effective 22. New Lipase methodology. Expected to produce lower values than the previous assay method. NEW Reference Range: 13 - 75 U/L Liver Profileon 10-06-2024 Albumin [Mass/Vol] 3.5 g/dL Normal 3.5-5.0 [facility] Comment on above: Performed By: #### L 504.2610, [id number] #### [facility] [address] [place], [address] ALK PHOS 56 U/L Normal 35-104 [facility] Comment on above: Performed By: #### L 504.2610, [id number] #### [facility] [address] [place], [address] ALT [Catalytic activity/Vol] 404 U/L High <=34 [facility] Comment on above: Performed By: #### L 504.2610, [id number] #### [facility] [address] [place], [address] AST [Catalytic activity/Vol] 458 U/L High <=31 [facility] Comment on above: Performed By: #### L 504.2610, [id number] #### [facility] [address] [place], [address] Bilirubin [Mass/Vol] 0.75 mg/dL Normal 0.00-1.30 [facility] Comment on above: Performed By: #### L 504.2610, [id number] #### [facility] [address] [place], [address] Bilirubin.direct [Mass/Vol] 0.36 mg/dL High 0.00-0.30 [facility] Comment on above: Performed By: #### L 504.2610, [id number] #### [facility] [address] [place], [address] Globulin (S) [Mass/Vol] 2.6 g/dL Normal 2.2-4.2 [facility] Comment on above: Performed By: #### L 504.2610, [id number] #### [facility] [address] [place], [address] T PROT 6.1 g/dL Normal 5.9-8.4 [facility] Comment on above: Performed By: #### L 504.2610, [id number] #### [facility] [address] [place], [address] M100.678on 10-06-2024 M100.678 Pending SARS-CoV-2 (COVID 19) Negative INFLUENZA A Negative INFLUENZA B Negative RSV PCR Negative Normal [facility] Comment on above: Performed By: #### L 504.2610, [id number] #### [facility] [address] [place], [address] MCV (mean corpuscular volume ) determinationOrdered By: Will Silveira on 10-06-2024 MCV (RBC) [Entitic vol] 93.5 fL 81-99 [facility] Mean corpuscular hemoglobin (MCH) determinationOrdered By: Will Silveira on 10-06-2024 MCH (RBC) [Entitic mass] 30.7 pg 27.0-32.0 [facility] Mean corpuscular hemoglobin concentration (MCHC) determinationOrdered By: Will Silveira on 10-06-2024 MCHC (RBC) [Mass/Vol] 32.9 g/dL 32-36 [facility] Mean platelet volume determi nationOrdered By: Will Silveira on 10-06-2024 Platelet mean volume (Bld) [Entitic vol] 11.6 fL 6.2-12.0 [facility] Microscopic analysis of urin e for red blood cells (RBC)Ordered By: Will Silveira on 10-06-2024 Microscopic analysis of urine for red blood cells (RBC) 5-10 SEEN /hpf 0-5 [facility] Monocyte percentageOrdered B y: Will Silveira on 10-06-2024 Monocytes/100 WBC (Bld) 5.9 % 0-10 [facility] Mucus LM Ql (Urine sed)Order ed By: Will Silveira on 10-06-2024 Mucus Ql (Urine sed) 0 SEEN /hpf [facility] Neutrophil percentageOrdered By: Will Silveira on 10-06-2024 Neutrophils/100 WBC (Bld) 75.3 % High 47-70 [facility] Nitrite Test strip Ql (U)Ord ered By: Will Silveira on 10-06-2024 Nitrite Ql (U) Positive High Negative [facility] No Panel InformationOrdered By: Estrella Gross on 10-06-2024 Hepatitis C Antibody Comment Comment . [facility] Comment on above: Not infected with HC V unless early or acute infection issuspected (which may be delayed in an immunocompromisedindividual), or other evidence exists to indicate HCVinfection.Performed at: [facility] [id number] Director: Kevin Prasad PhD, Phone: [phone] Nucleated red blood cell per centageOrdered By: Will Silveira on 10-06-2024 Nucleated RBC/100 WBC (Bld) [Ratio] 0 % 0-5 [facility] Platelet countOrdered By: Du Silveira on 10-06-2024 Platelets (Bld) [#/Vol] 247 10*3/uL 150-450 [facility] Potassium measurement (mass/ volume)Ordered By: Will Silveira on 10-06-2024 Potassium (Unsp spec) [Mass/Vol] 3.6 mmol/L 3.3-5.1 [facility] Protein Test strip Ql (U)Ord ered By: Will Silveira on 10-06-2024 Protein Ql (U) 30 mg/dl High Negative [facility] RBC Auto (Bld) [#/Vol]Ordere d By: Will Silveira on 10-06-2024 RBC (Bld) [#/Vol] 4.46 10*6/uL 4.2-5.4 [facility] Serum creatinine measurement (mass/volume)Ordered By: Will Silveira on 10-06-2024 Creatinine [Mass/Vol] 0.51 mg/dL Low 0.70-1.20 [facility] Serum globulin measurementOr dered By: Will Silveira on 10-06-2024 Globulin (S) [Mass/Vol] 2.6 g/dL 2.2-4.2 [facility] Serum glucose measurement (m ass/volume)Ordered By: Will Silveira on 10-06-2024 Glucose [Mass/Vol] 110 mg/dL High 70-99 [facility] Serum or plasma alanine reynoso otransferase (ALT) measurementOrdered By: Will Silveira on 10-06-2024 ALT [Catalytic activity/Vol] 404 U/L High <35 [facility] Serum or plasma albumin anish urement (mass/volume)Ordered By: Will Atwood on 10-06-2024 Albumin [Mass/Vol] 3.5 g/dL 3.5-5.0 [facility] Serum or plasma alkaline brian sphatase measurementOrdered By: Will Silveira on 10-06-2024 ALP [Catalytic activity/Vol] 56 U/L 35-104 [facility] Serum or plasma calcium anish urement (mass/volume)Ordered By: Will Atwood on 10-06-2024 Calcium [Mass/Vol] 8.9 mg/dL 7.6-11.0 [facility] Serum or plasma creatine kin ase activityOrdered By: Will Silveira on 10-06-2024 CK [Catalytic activity/Vol] 5727 U/L High 24-195 [facility] Serum or plasma hepatitis B virus surface antigen detection by immunoassayOrdered By: Estrella Gross on 10-06-2024 HBV surface Ag IA Ql Negative Negative [facility] Serum or plasma urea nitroge n measurement (mass/volume)Ordered By: Will Silveira on 10-06-2024 Urea nitrogen [Mass/Vol] 8 mg/dL 4-19 [facility] Sodium levelOrdered By: Beka Silveira on 10-06-2024 Sodium [Moles/Vol] 139 mmol/L 133-145 [facility] Squamous epithelial cells de tection in urine sediment by light microscopyOrdered By: Will Silveira on 10-06-2024 Epithelial cells.squamous LM Ql (Urine sed) 5-10 SEEN /hpf 5-10 [facility] Total proteinOrdered By: Mg Silveira on 10-06-2024 Protein [Mass/Vol] 6.1 g/dL 5.9-8.4 [facility] Urinalysis, Completeon 10-06 CAST,HYALINE 0-5 SEEN Normal 0-5 [facility] Comment on above: Order Comment: COLOR OF URINE MAY AFFECT DIPSTICK RESULTS.CLEAN CATCH Performed By: #### L 504.2610, [id number] #### [facility] [address] [place], [address] BACTERIA 3+ /hpf Normal None Seen [facility] Comment on above: Order Comment: COLOR OF URINE MAY AFFECT DIPSTICK RESULTS.CLEAN CATCH Performed By: #### L 504.2610, [id number] #### [facility] [address] [place], [address] EPI,SQUAMOUS 5-10 SEEN Normal 5-10 [facility] Comment on above: Order Comment: COLOR OF URINE MAY AFFECT DIPSTICK RESULTS.CLEAN CATCH Performed By: #### L 504.2610, [id number] #### [facility] [address] [place], [address] RBC 5-10 SEEN Normal 0-5 [facility] Comment on above: Order Comment: COLOR OF URINE MAY AFFECT DIPSTICK RESULTS.CLEAN CATCH Performed By: #### L 504.2610, [id number] #### [facility] [address] [place], [address] WBC 10-25 SEEN Normal 0-5 [facility] Comment on above: Order Comment: COLOR OF URINE MAY AFFECT DIPSTICK RESULTS.CLEAN CATCH Performed By: #### L 504.2610, [id number] #### [facility] [address] [place], [address] Mucus Ql (Urine sed) 0 SEEN Normal [facility] Comment on above: Order Comment: COLOR OF URINE MAY AFFECT DIPSTICK RESULTS.CLEAN CATCH Performed By: #### L 504.2610, [id number] #### [facility] [address] [place], [address] Urine clarityOrdered By: Mg Silveira on 10-06-2024 Clarity (U) Sl. Cloudy Clear [facility] Urine color determinationOrd ered By: Will Silveira on 10-06-2024 Color (U) Olga Lidia Yellow [facility] Urine cultureOrdered By: Mg Silveira on 10-06-2024 Bacteria identified Cx Nom (U) Escherichia coli Abnormal [facility] Urine glucose detectionOrder ed By: Will Silveira on 10-06-2024 Glucose Ql (U) Normal mg/dl Normal [facility] Urine leukocyte esterase det ection by dipstickOrdered By: Will Silveira on 10-06-2024 Leukocyte esterase Test strip Ql (U) 100 /ul High Negative [facility] Urine pHOrdered By: Will Lira on 10-06-2024 pH (U) 6.0 [pH] 5.0 - 8.0 [facility] Urine sediment bacteria coun t by microscopy (number/high power field)Ordered By: Will Silveira on 10-06-2024 Bacteria LM.HPF (Urine sed) [#/Area] 3 /[HPF] None Seen [facility] Urine specific gravity measu rementOrdered By: Will Silveira on 10-06-2024 Specific gravity (U) [Rel density] 1.020 1.002-1.030 [facility] Urine urobilinogen measureme ntOrdered By: Will Silveira on 10-06-2024 Urobilinogen Ql (U) 1 mg/dl High Normal [facility] White blood cell (WBC) count Ordered By: Will Silveira on 10-06-2024 WBC (Bld) [#/Vol] 6.4 10*3/uL 4.4-11.0 [facility] White blood cell countOrdere d By: Will Silveira on 10-06-2024 White blood cell count 10-25 SEEN /hpf 0-5 [facility] Absolute lymphocyte countOrd ered By: Javier Morales on 09-10-2024 Lymphocytes Auto (Unsp spec) [#/Vol] 0.77 10*3/uL Low 0.83-4.51 [facility] Absolute neutrophil countOrd ered By: Javier Morales on 09-10-2024 Neutrophils (Bld) [#/Vol] 5.2 10*3/uL 2.0-7.7 [facility] Anion gap in Serum or Plasma Ordered By: Javier Morales on 09-10-2024 Anion gap [Moles/Vol] 11 mmol/L 5-15 [facility] Automated lymphocyte count a s percentage of total leukocytesOrdered By: Javier Morales on 06-11-2025 Lymphocytes/100 WBC Auto (Unsp spec) 11.4 % Low 19-41 [facility] BUN/creatinine ratioOrdered By: Javier Morales on 09-10-2024 Urea nitrogen/Creatinine [Mass ratio] 11.9 mg/mg 10-20 [facility] Basophil percentageOrdered B y: Javier Morales on 09-10-2024 Basophils/100 WBC (Bld) 0.4 % 0-1 [facility] Bilirubin directOrdered By: Javier Morales on 09-10-2024 Bilirubin.direct [Mass/Vol] 0.27 mg/dL 0.00-0.30 [facility] Bilirubin, Directon 09-11-19 25 Bilirubin.direct [Mass/Vol] 0.27 mg/dL Normal 0.00-0.30 [facility] Comment on above: Order Comment: DR.MH DICKENS ORDERED LIPID AND LIVERNP.MICHAEL ORDERED LIPID,CMP,CBCD,A1C,TSH,AND T4F Performed By: #### L 504.2610, [id number] #### [facility] [address] [place], [address] Bilirubin, totalOrdered By: Javier Morales on 09-10-2024 Bilirubin [Mass/Vol] 0.63 mg/dL 0.00-1.30 [facility] CBC W/Diff, Automatedon 08-31 Absolute Lymph 0.77 X10 3/uL Low 0.83-4.51 [facility] Comment on above: Order Comment: DR.MH DICKENS ORDERED LIPID AND LIVERNP.MICHAEL ORDERED LIPID,CMP,CBCD,A1C,TSH,AND T4F Performed By: #### L 504.2610, [id number] #### [facility] [address] [place], [address] Absolute Neut 5.2 X10 3/uL Normal 2.0-7.7 [facility] Comment on above: Order Comment: DR.MH DICKENS ORDERED LIPID AND LIVERNP.MICHAEL ORDERED LIPID,CMP,CBCD,A1C,TSH,AND T4F Performed By: #### L 504.2610, [id number] #### [facility] [address] [place], [address] Basophils/100 WBC (Bld) 0.4 % Normal 0-1 [facility] Comment on above: Order Comment: DR.MH DICKENS ORDERED LIPID AND LIVERNP.JFRANKLIN ORDERED LIPID,CMP,CBCD,A1C,TSH,AND T4F Performed By: #### L 504.2610, [id number] #### [facility] [address] [place], [address] Eosinophils/100 WBC (Bld) 6.9 % High 0-5 [facility] Comment on above: Order Comment: DR.MH DICKENS ORDERED LIPID AND LIVERNP.JFRANKLIN ORDERED LIPID,CMP,CBCD,A1C,TSH,AND T4F Performed By: #### L 504.2610, [id number] #### [facility] [address] [place], [address] Erythrocyte distribution width (RBC) [Ratio] 13.5 % Normal 11.6-14.6 [facility] Comment on above: Order Comment: DR.MH DICKENS ORDERED LIPID AND LIVERNP.JFRANKLIN ORDERED LIPID,CMP,CBCD,A1C,TSH,AND T4F Performed By: #### L 504.2610, [id number] #### [facility] [address] [place], [address] Hematocrit (Bld) [Volume fraction] 41.7 % Normal 37-47 [facility] Comment on above: Order Comment: DR.MH DICKENS ORDERED LIPID AND LIVERNP.JFRANKLIN ORDERED LIPID,CMP,CBCD,A1C,TSH,AND T4F Performed By: #### L 504.2610, [id number] #### [facility] [address] [place], [address] Hemoglobin (Bld) [Mass/Vol] 13.8 g/dL Normal 12.0-15.0 [facility] Comment on above: Order Comment: DR.MH DICKENS ORDERED LIPID AND LIVERNP.JFRANKLIN ORDERED LIPID,CMP,CBCD,A1C,TSH,AND T4F Performed By: #### L 504.2610, [id number] #### [facility] [address] [place], [address] IG% 0.400 Normal 0.0-0.9 [facility] Comment on above: Order Comment: DR.MH DICKENS ORDERED LIPID AND LIVERNP.RANKLIN ORDERED LIPID,CMP,CBCD,A1C,TSH,AND T4F Result Comment: IG% - Immature Granulocytes (promyelocytes, myelocytes and metamyelocytes) > 1% indicates that a LEFT SHIFT is Present. Performed By: #### L 504.2610, [id number] #### [facility] [address] [facility] [place], [address] Lymphocytes/100 WBC (Bld) 11.4 % Low 19-41 [facility] Comment on above: Order Comment: DR.MH DICKENS [facility] LIPID,CMP,CBCD,A1C,TSH,AND T4F Performed By: #### L 504.2610, [id number] #### [facility] [address] [place], [address] MCH (RBC) [Entitic mass] 30.9 pg Normal 27.0-32.0 [facility] Comment on above: Order Comment: DR.MH DICKENS ORDERED LIPID AND LIVERNP.RANIN ORDERED LIPID,CMP,CBCD,A1C,TSH,AND T4F Performed By: #### L 504.2610, [id number] #### [facility] [address] [place], [address] MCHC (RBC) [Mass/Vol] 33.1 g/dL Normal 32-36 [facility] Comment on above: Order Comment: DR.MH DICKENS ORDERED LIPID AND LIVERNP.RANKLIN ORDERED LIPID,CMP,CBCD,A1C,TSH,AND T4F Performed By: #### L 504.2610, [id number] #### [facility] [address] [place], [address] MCV (RBC) [Entitic vol] 93.3 fL Normal 81-99 [facility] Comment on above: Order Comment: DR.MH DICKENS ORDERED LIPID AND LIVERNP.JFRANKLIN ORDERED LIPID,CMP,CBCD,A1C,TSH,AND T4F Performed By: #### L 504.2610, [id number] #### [facility] [address] [place], [address] Monocytes/100 WBC (Bld) 4.0 % Normal 0-10 [facility] Comment on above: Order Comment: DR.MH DICKENS ORDERED LIPID AND LIVERNP.KDRANKLIN ORDERED LIPID,CMP,CBCD,A1C,TSH,AND T4F Performed By: #### L 504.2610, [id number] #### [facility] [address] [place], [address] Neutrophils/100 WBC (Bld) 76.9 % High 47-70 [facility] Comment on above: Order Comment: DR.MH DICKENS ORDERED LIPID AND LIVERNP.KDRANJANETIN ORDERED LIPID,CMP,CBCD,A1C,TSH,AND T4F Performed By: #### L 504.2610, [id number] #### [facility] [address] [place], [address] Nucleated RBC (Bld) [#/Vol] 0 10*3/uL Normal 0-5 [facility] Comment on above: Order Comment: DR.MH DICKENS ORDERED LIPID AND LIVERNP.KDRANJANETIN ORDERED LIPID,CMP,CBCD,A1C,TSH,AND T4F Performed By: #### L 504.2610, [id number] #### [facility] [address] [place], [address] Platelet mean volume (Bld) [Entitic vol] 11.9 fL Normal 6.2-12.0 [facility] Comment on above: Order Comment: DR.MH DICKENS ORDERED LIPID AND LIVERNP.KDRANKLIN ORDERED LIPID,CMP,CBCD,A1C,TSH,AND T4F Performed By: #### L 504.2610, [id number] #### [facility] [address] [place], [address] Platelets (Bld) [#/Vol] 216 10*3/uL Normal 150-450 [facility] Comment on above: Order Comment: DR.MH DICKENS ORDERED LIPID AND LIVERNP.JFRANKLIN ORDERED LIPID,CMP,CBCD,A1C,TSH,AND T4F Performed By: #### L 504.2610, [id number] #### [facility] [address] [place], [address] RBC (Bld) [#/Vol] 4.47 10*6/uL Normal 4.2-5.4 [facility] Comment on above: Order Comment: DR.MH DICKENS ORDERED LIPID AND LIVERNP.JFRANKLIN ORDERED LIPID,CMP,CBCD,A1C,TSH,AND T4F Performed By: #### L 504.2610, [id number] #### [facility] [address] [place], [address] RDW SD 45.9 fl High 35.1-43.9 [facility] Comment on above: Order Comment: DR.MH DICKENS ORDERED LIPID AND LIVERNP.KDRANKLIN ORDERED LIPID,CMP,CBCD,A1C,TSH,AND T4F Performed By: #### L 504.2610, [id number] #### [facility] [address] [place], [address] WBC (Bld) [#/Vol] 6.8 10*3/uL Normal 4.4-11.0 [facility] Comment on above: Order Comment: DR.MH DICKENS ORDERED LIPID AND LIVERNP.JFRANKLIN ORDERED LIPID,CMP,CBCD,A1C,TSH,AND T4F Performed By: #### L 504.2610, [id number] #### [facility] [address] [place], [address] Calculated very low density lipoprotein (VLDL) cholesterol measurementOrdered By: Javier Morlaes on 09-10-2024 Calculated very low density lipoprotein (VLDL) cholesterol measurement 15 mg/dL 5-40 [facility] Carbon dioxide, total [Moles /volume] in Central venous bloodOrdered By: Javier Morales on 09-10-2024 CO2 [Moles/Vol] 24.4 mmol/L 21.0-32.0 [facility] Chloride assayOrdered By: Ann-Marie Morales on 09-10-2024 Chloride [Moles/Vol] 104 mmol/L 98-108 [facility] Comprehensive Metabolic Prof ilon 09-10-2024 Albumin [Mass/Vol] 3.8 g/dL Normal 3.5-5.0 [facility] Comment on above: Order Comment: DR.MH DICKENS ORDERED LIPID AND LIVERNP.MICHAEL ORDERED LIPID,CMP,CBCD,A1C,TSH,AND T4F Performed By: #### L 504.2610, [id number] #### [facility] [address] [place], [address] Albumin/Globulin [Mass ratio] 1.3 {ratio} Normal 0.9-2.4 [facility] Comment on above: Order Comment: DR.MH DICKENS ORDERED LIPID AND LIVERNP.MICHAEL ORDERED LIPID,CMP,CBCD,A1C,TSH,AND T4F Performed By: #### L 504.2610, [id number] #### [facility] [address] [place], [address] ALK PHOS 74 U/L Normal 35-104 [facility] Comment on above: Order Comment: DR.MH DICKENS ORDERED LIPID AND LIVERNP.MICHAEL ORDERED LIPID,CMP,CBCD,A1C,TSH,AND T4F Performed By: #### L 504.2610, [id number] #### [facility] [address] [place], [address] ALT [Catalytic activity/Vol] 100 U/L High <=34 [facility] Comment on above: Order Comment: DR.MH DICKENS ORDERED LIPID AND LIVERNP.JFRANKLIN ORDERED LIPID,CMP,CBCD,A1C,TSH,AND T4F Performed By: #### L 504.2610, [id number] #### [facility] [address] [place], [address] AST [Catalytic activity/Vol] 98 U/L High <=31 [facility] Comment on above: Order Comment: DR.MH DICKENS ORDERED LIPID AND LIVERNP.JFRANKLIN ORDERED LIPID,CMP,CBCD,A1C,TSH,AND T4F Performed By: #### L 504.2610, [id number] #### [facility] [address] [place], [address] Bilirubin [Mass/Vol] 0.63 mg/dL Normal 0.00-1.30 [facility] Comment on above: Order Comment: DR.MH DICKENS ORDERED LIPID AND LIVERNP.JFRANKLIN ORDERED LIPID,CMP,CBCD,A1C,TSH,AND T4F Performed By: #### L 504.2610, [id number] #### [facility] [address] [place], [address] BUN/CRE 11.9 RATIO Normal 10-20 [facility] Comment on above: Order Comment: DR.MH DICKENS ORDERED LIPID AND LIVERNP.JFRANKLIN ORDERED LIPID,CMP,CBCD,A1C,TSH,AND T4F Performed By: #### L 504.2610, [id number] #### [facility] [address] [place], [address] Calcium [Mass/Vol] 9.4 mg/dL Normal 7.6-11.0 [facility] Comment on above: Order Comment: DR.MH DICKENS ORDERED LIPID AND LIVERNP.JFRANKLIN ORDERED LIPID,CMP,CBCD,A1C,TSH,AND T4F Performed By: #### L 504.2610, [id number] #### [facility] [address] [place], [address] Chloride [Moles/Vol] 104 mmol/L Normal 98-108 [facility] Comment on above: Order Comment: DR.MH DICKENS ORDERED LIPID AND LIVERNP.KDRANKLIN ORDERED LIPID,CMP,CBCD,A1C,TSH,AND T4F Performed By: #### L 504.2610, [id number] #### [facility] [address] [place], [address] CO2 [Moles/Vol] 24.4 mmol/L Normal 21.0-32.0 [facility] Comment on above: Order Comment: DR.MH DICKENS ORDERED LIPID AND LIVERNP.LEOBARDOIN ORDERED LIPID,CMP,CBCD,A1C,TSH,AND T4F Performed By: #### L 504.2610, [id number] #### [facility] [address] [place], [address] Creatinine [Mass/Vol] 0.68 mg/dL Low 0.70-1.20 [facility] Comment on above: Order Comment: DR.MH DICKENS ORDERED LIPID AND LIVERNP.MICHAEL ORDERED LIPID,CMP,CBCD,A1C,TSH,AND T4F Performed By: #### L 504.2610, [id number] #### [facility] [address] [place], [address] GAP 11 Normal 5-15 [facility] Comment on above: Order Comment: DR.MH DICKENS ORDERED LIPID AND LIVERNP.MICHAEL ORDERED LIPID,CMP,CBCD,A1C,TSH,AND T4F Performed By: #### L 504.2610, [id number] #### [facility] [address] [place], [address] GFR/1.73 sq M.predicted among non-blacks MDRD (S/P/Bld) [Vol rate/Area] 103 mL/min/{1.73_m2} Normal >60 [facility] Comment on above: Order Comment: DR.MH DICKENS ORDERED LIPID AND LIVERNP.MICHAEL ORDERED LIPID,CMP,CBCD,A1C,TSH,AND T4F Result Comment: mL/m in/1.73m2 CKD-EPI Creatinine Equation (2020) Performed By: #### L 504.2610, [id number] #### [facility] [address] [place], [address] Globulin (S) [Mass/Vol] 2.9 g/dL Normal 2.2-4.2 [facility] Comment on above: Order Comment: DR.MH DICKENS ORDERED LIPID AND LIVERNP.MICHAEL ORDERED LIPID,CMP,CBCD,A1C,TSH,AND T4F Performed By: #### L 504.2610, [id number] #### [facility] [address] [place], [address] Glucose [Mass/Vol] 106 mg/dL High 70-99 [facility] Comment on above: Order Comment: DR.MH DICKENS ORDERED LIPID AND LIVERNP.MICHAEL ORDERED LIPID,CMP,CBCD,A1C,TSH,AND T4F Performed By: #### L 504.2610, [id number] #### [facility] [address] [place], [address] Potassium [Moles/Vol] 3.8 mmol/L Normal 3.3-5.1 [facility] Comment on above: Order Comment: DR.MH DICKENS ORDERED LIPID AND LIVERNP.MICHAEL ORDERED LIPID,CMP,CBCD,A1C,TSH,AND T4F Performed By: #### L 504.2610, [id number] #### [facility] [address] [place], [address] Sodium [Moles/Vol] 139 mmol/L Normal 133-145 [facility] Comment on above: Order Comment: DR.MH DICKENS ORDERED LIPID AND LIVERNP.KDRANJANETIN ORDERED LIPID,CMP,CBCD,A1C,TSH,AND T4F Performed By: #### L 504.2610, L501.3620 #### [facility] [address] [place], [place], [id number] T PROT 6.7 g/dL Normal 5.9-8.4 [facility] Comment on above: Order Comment: DR.MH DICKENS ORDERED LIPID AND LIVERNP.JFRANKLIN ORDERED LIPID,CMP,CBCD,A1C,TSH,AND T4F Performed By: #### L 504.2610, L501.3620 #### [facility] [address] [place], [address] Urea nitrogen [Mass/Vol] 8 mg/dL Normal 4-19 [facility] Comment on above: Order Comment: DR.MH DICKENS ORDERED LIPID AND LIVERNP.JFRANKLIN ORDERED LIPID,CMP,CBCD,A1C,TSH,AND T4F Performed By: #### L 504.2610, L501.3620 #### [facility] [address] [place], [address] Eosinophil percentageOrdered By: Javier Morales on 09-10-2024 Eosinophils/100 WBC (Bld) 6.9 % High 0-5 [facility] Erythrocyte distribution wid th ratioOrdered By: Javier Morales on 09-10-2024 Erythrocyte distribution width (RBC) [Ratio] 13.5 % 11.6-14.6 [facility] Erythrocyte distribution wid th standard deviationOrdered By: Javier Morales on 09-10-2024 Erythrocyte distribution width (RBC) [Ratio] 45.9 fl High 35.1-43.9 [facility] Glomerular filtration rate ( GFR) estimation/1.73 sq m using serum, plasma, or whole bOrdered By: Javier Morales on 09-10-2024 GFR/1.73 sq M.predicted among non-blacks MDRD (S/P/Bld) [Vol rate/Area] 103 mL/min/{1.73_m2} >60 [facility] Comment on above: mL/min/1.73m2 CKD-EP I Creatinine Equation (2020) Hematocrit Auto (Bld) [Volum e fraction]Ordered By: Javier Morales on 09-10-2024 Hematocrit (Bld) [Volume fraction] 41.7 % 37-47 [facility] Hemoglobin A1con 09-10-2024 HbA1c (Bld) [Mass fraction] 6.0 % High <=5.6 [facility] Comment on above: Order Comment: DR.MH DICKENS ORDERED LIPID AND LIVERNP.MICHAEL ORDERED LIPID,CMP,CBCD,A1C,TSH,AND T4F Result Comment: Norm al < 5.7 % Prediabetic 5.7 - 6.4 % Diabetic >or= 6.5 % Please note range changes. Performed By: #### L 504.2610, L501.3620 #### [facility] [address] [place], [place], [id number] Hemoglobin A1c percentageOrd ered By: Javier Morales on 09-10-2024 HbA1c (Bld) [Mass fraction] 6.0 % High <5.7 [facility] Comment on above: Normal < 5.7 % Predi abetic 5.7 - 6.4 % Diabetic >or= 6.5 % Please note range changes. Hemoglobin measurementOrdere d By: Javier Morales on 09-10-2024 Hemoglobin (Bld) [Mass/Vol] 13.8 g/dL 12.0-15.0 [facility] Immature granulocytes/100 WB C Auto (Bld)Ordered By: Javier Morales on 09-10-2024 Immature granulocytes/100 WBC (Bld) 0.400 % 0.0-0.9 [facility] Comment on above: IG% - Immature Granu locytes (promyelocytes, myelocytes and metamyelocytes) > 1% indicates that a LEFT SHIFT is Present. LDL calc ser/plasOrdered By: Javier Morales on 09-10-2024 Cholesterol in LDL [Mass/Vol] 75 mg/dL [facility] Comment on above: Vlovbscuuy=926-126 m g/dL & Higher Mjla=919 mg/dL or greater Laboratory - Chemistry and C hemistry - challengeOrdered By: Javier Morales on 09-10-2024 AST [Catalytic activity/Vol] 98 U/L High <32 [facility] Lipid Profileon 09-10-2024 CHOL:HDL 3.60 Normal [facility] Comment on above: Order Comment: DR.MH DICKENS ORDERED LIPID AND LIVERNP.MONTEZKLIN ORDERED LIPID,CMP,CBCD,A1C,TSH,AND T4F Performed By: #### L 504.2610, L501.3620 #### [facility] [address] [place], [address] Cholesterol [Mass/Vol] 125 mg/dL Normal <=200 [facility] Comment on above: Order Comment: DR.MH DICKENS ORDERED LIPID AND LIVERNP.KDRANKLIN ORDERED LIPID,CMP,CBCD,A1C,TSH,AND T4F Result Comment: Chol esterol level, Desirable <200 mg/dL Borderline high cholesterol 200-239 mg/dL High cholesterol >=240 mg/dL Recommendations of the NCEP Adult Treatment Panel for the following risk-cutoff thresholds for the [place] population. Performed By: #### L 504.2610, L5.3620 #### [facility] [address] [place], [address] Cholesterol in HDL [Mass/Vol] 35 mg/dL Low [facility] Comment on above: Order Comment: DR.MH DICKENS ORDERED LIPID AND LIVERNP.MONTEZKLIN ORDERED LIPID,CMP,CBCD,A1C,TSH,AND T4F Result Comment: Essence onal Cholesterol Education Program (NCEP) guidelines: <40 mg/dL: Low HDL-cholesterol (major risk factor for CHD) >= 60 mg/dL: High HDL-cholesterol (negative risk factor for CHD) HDL-cholesterol is affected by a number of factors, e.g. smoking, exercise, hormones, sex and age. Performed By: #### L 504.2610, L5.3620 #### [facility] [address] [place], [address] Cholesterol in LDL [Mass/Vol] 75 mg/dL Normal [facility] Comment on above: Order Comment: DR.MH DICKENS ORDERED LIPID AND LIVERNP.MICHAEL ORDERED LIPID,CMP,CBCD,A1C,TSH,AND T4F Result Comment: Bord atqxyd=322-200 mg/dL Higher Fbad=672 mg/dL or greater Performed By: #### L 504.2610, L501.3620 #### [facility] [address] [place], [place], [address] Cholesterol in VLDL [Mass/Vol] 15 mg/dL Normal 5-40 [facility] Comment on above: Order Comment: DR.MH DICKENS ORDERED LIPID AND LIVERNP.MONTEZKLIN ORDERED LIPID,CMP,CBCD,A1C,TSH,AND T4F Performed By: #### L 504.2610, L501.3620 #### [facility] [address] [place], [address] Triglyceride [Mass/Vol] 76 mg/dL Normal [facility] Comment on above: Order Comment: DR.MH DICKENS ORDERED LIPID AND LIVERNP.MICHAEL ORDERED LIPID,CMP,CBCD,A1C,TSH,AND T4F Result Comment: The drugs N-Acetylcysteine and Metamizole may falsely depress this assay. Normal range: <150 mg/dL Borderline High: 150-199 mg/dL High: 200-499 mg/dL Very High: >500 mg/dL Performed By: #### L 504.2610, L501.3620 #### [facility] [address] [place], [place], [address] MCV (mean corpuscular volume ) determinationOrdered By: Javier Morales on 09-10-2024 MCV (RBC) [Entitic vol] 93.3 fL 81-99 [facility] Mean corpuscular hemoglobin (MCH) determinationOrdered By: Javier Morales on 09-10-2024 MCH (RBC) [Entitic mass] 30.9 pg 27.0-32.0 [facility] Mean corpuscular hemoglobin concentration (MCHC) determinationOrdered By: Javier Morales on 09-10-2024 MCHC (RBC) [Mass/Vol] 33.1 g/dL 32-36 [facility] Mean platelet volume determi nationOrdered By: Javier Morales on 09-10-2024 Platelet mean volume (Bld) [Entitic vol] 11.9 fL 6.2-12.0 [facility] Monocyte percentageOrdered B y: Javier Morales on 09-10-2024 Monocytes/100 WBC (Bld) 4.0 % 0-10 [facility] Neutrophil percentageOrdered By: Javier Morales on 09-10-2024 Neutrophils/100 WBC (Bld) 76.9 % High 47-70 [facility] Nucleated red blood cell per centageOrdered By: Javier Morales on 09-10-2024 Nucleated RBC/100 WBC (Bld) [Ratio] 0 % 0-5 [facility] Platelet countOrdered By: Ann-Marie Morales on 09-10-2024 Platelets (Bld) [#/Vol] 216 10*3/uL 150-450 [facility] Potassium measurement (mass/ volume)Ordered By: Javier Morales on 09-10-2024 Potassium (Unsp spec) [Mass/Vol] 3.8 mmol/L 3.3-5.1 [facility] RBC Auto (Bld) [#/Vol]Ordere d By: Javier Morales on 09-10-2024 RBC (Bld) [#/Vol] 4.47 10*6/uL 4.2-5.4 [facility] Screening total cholesterol/ high density lipoprotein (HDL) cholesterol ratioOrdered By: Javier Morales on 09-10-2024 Cholesterol.total/Darlene sterol in HDL [Mass ratio] 3.60 {ratio} [facility] Serum creatinine measurement (mass/volume)Ordered By: Javier Morales on 09-10-2024 Creatinine [Mass/Vol] 0.68 mg/dL Low 0.70-1.20 [facility] Serum globulin measurementOr dered By: Javier Morales on 09-10-2024 Globulin (S) [Mass/Vol] 2.9 g/dL 2.2-4.2 [facility] Serum glucose measurement (m ass/volume)Ordered By: Javier Morales on 09-10-2024 Glucose [Mass/Vol] 106 mg/dL High 70-99 [facility] Serum or plasma alanine reynoso otransferase (ALT) measurementOrdered By: Javier Morales on 09-10-2024 ALT [Catalytic activity/Vol] 100 U/L High <35 [facility] Serum or plasma albumin anish urement (mass/volume)Ordered By: Javier Morales on 09-10-2024 Albumin [Mass/Vol] 3.8 g/dL 3.5-5.0 [facility] Serum or plasma albumin/glob ulin mass ratioOrdered By: Javier Morales on 09-10-2024 Albumin/Globulin [Mass ratio] 1.3 {ratio} 0.9-2.4 [facility] Serum or plasma alkaline brian sphatase measurementOrdered By: Javier Morales on 09-10-2024 ALP [Catalytic activity/Vol] 74 U/L 35-104 [facility] Serum or plasma calcium anish urement (mass/volume)Ordered By: Javier Morales on 09-10-2024 Calcium [Mass/Vol] 9.4 mg/dL 7.6-11.0 [facility] Serum or plasma cholesterol in HDL measurement (mass/volume)Ordered By: Javier Morales on 09-10-2024 Cholesterol in HDL [Mass/Vol] 35 mg/dL Low >40 [facility] Comment on above: National Cholesterol Education Program (NCEP) guidelines:<40 mg/dL: Low HDL-cholesterol (major risk factor for CHD)>= 60 mg/dL: High HDL-cholesterol (negative risk factor for CHD)HDL-cholesterol is affected by a number of factors, e.g. smoking, exercise, hormones, sex and age. Serum or plasma cholesterol measurement (mass/volume)Ordered By: Javier Morales on 09-10-2024 Cholesterol [Mass/Vol] 125 mg/dL <201 [facility] Comment on above: Cholesterol level, D esirable <200 mg/dLBorderline high cholesterol 200-239 mg/dLHigh cholesterol >=240 mg/dLRecommendations of the NCEP Adult Treatment Panel for the following risk-cutoff thresholds for the [place] population. Serum or plasma urea nitroge n measurement (mass/volume)Ordered By: Javier Morales on 09-10-2024 Urea nitrogen [Mass/Vol] 8 mg/dL 4-19 [facility] Sodium levelOrdered By: Ethan Morales on 09-10-2024 Sodium [Moles/Vol] 139 mmol/L 133-145 [facility] T4 Free Directon 09-10-2024 T4 FREE DIRECT 0.80 ng/dL Normal 0.76-1.46 [facility] Comment on above: Order Comment: DR.MH DICKENS ORDERED LIPID AND LIVERNP.MICHAEL ORDERED LIPID,CMP,CBCD,A1C,TSH,AND T4F Performed By: #### L 504.2610, L501.3620 #### [facility] [address] [place], [address] T4 freeOrdered By: Javier dickens on 09-10-2024 Free T4 [Mass/Vol] 0.80 ng/dL 0.76-1.46 [facility] TSH DL <= 0.005 mIU/L QnOrde red By: Javier Morales on 09-10-2024 TSH Qn 7.450 uIU/mL High 0.300-4.200 [facility] Thyroid Stim Hormone (TSH)on 09-10-2024 TSH 7.450 uIU/mL High 0.300-4.200 [facility] Comment on above: Order Comment: DR.MH DICKENS ORDERED LIPID AND LIVERNP.MICHAEL ORDERED LIPID,CMP,CBCD,A1C,TSH,AND T4F Performed By: #### L 504.2610, L501.3620 #### [facility] [address] [facility] [place], [address] Total proteinOrdered By: Kathryn Morales on 09-10-2024 Protein [Mass/Vol] 6.7 g/dL 5.9-8.4 [facility] Triglycerides measurementOrd ered By: Javier Morales on 09-10-2024 Triglyceride [Mass/Vol] 76 mg/dL <199 [facility] Comment on above: The drugs N-Acetylcy steine and Metamizole may falsely depress this assay. Normal range: <150 mg/dLBorderline High: 150-199 mg/dLHigh: 200-499 mg/dLVery High: >500 mg/dL White blood cell (WBC) count Ordered By: Javier Morales on 09-10-2024 WBC (Bld) [#/Vol] 6.8 10*3/uL 4.4-11.0 [facility] Breast imaging reportOrdered By: Melony Oscar on 06-20-2024 Study report [facility] Imaging Services [address] [place], [place] [id number] SCRN MAMM (CAD)W/SHANNAN BILAT MR#: [id number] Acct: [id number] Name: TAMARA JOSE Rep #: [id number] : 1970 F 53 From: Heather Ocsar MD PCP: Blanquita Lim, Bishnu, EMPLOYMENT OFFICE CLERK-C Status: [facility] Study:SCRN MAMM (CAD)W/SHANNAN BILAT Date of Exa m: 06/20/24 Exam# [id number] Ordering Dr: Blanquita Lim Bishnu EMPLOYMENT OFFICE CLERK-C EXAM: SCRN MAMM (CAD)W/SHANNAN BILAT 06/20/2024 CLINICAL [...] be mailed to the patient. Reading Location: [id number] CC: [facility] EMPLOYMENT OFFICE CLERK-C Blanquita Lim ~ Vehicle Service Attendant: Signed [facility] SCRN MAMM (CAD)W/SHANNAN BILATo n 06-20-2024 SCRN MAMM (CAD)W/SHANNAN BILAT [facility] Imaging Services [address] [place] [address] SCRN MAMM (CAD)W/SHANNAN BILAT MR#: [id number] Acct: [id number] Name: TAMARA JOSE Rep #: [id number] : 1970 F 53 From: Melony Oscar MD PCP: ALEXA Bob, EMPLOYMENT OFFICE CLERK-C Status: REG CLI Study: SCRN MAMM (CAD)W/SHANNAN BILAT Date of Exam: 06/01 04/26 Exam# [id number] Ordering Dr: Blanquita Lim EMPLOYMENT OFFICE CLERK-C EXAM: SCRN MAMM (CAD)W/SHANNAN BILAT 06/20/2024 CLINICAL [...] be mailed to the patient. Reading Location: [id number] CC: [facility] EMPLOYMENT OFFICE CLERK-C Blanquita Lim Vehicle Service Attendant: Signed Normal [facility] Cardiovascular stress test r eportOrdered By: Vijay Mcclelland on 06-17-2024 Study report [facility] [address] [place] [address] MR#: [id number] Acct: [id number] Name: TAMARA JOSE Rep #: [id number] : 1970 53 From: Vijay jiménez MD Primary Care: ALEXA Bob, EMPLOYMENT OFFICE CLERK-C Status: REG CLI Referring Dr: Javier Morales [...] for age This note was generated with Skywordation software. It may contain incorrectwords, spelling, and punctuation that were not noted in checking the note beforesigning. 06/17/241444 Date _ Vijay Mcclelland MD CC: ALEXA EMPLOYMENT OFFICE CLERK-C Blanquita Lim; Dr. Javier Morales MD ~ Date Dictated: 06/17/241441 Date Transcribed: 06/17/241441 Vehicle Service Attendant: NORA Londono [facility] Work Phone: Stress Reporton 06-17-2024 Stress Report [facility] [address] [place] [address] MR#: [id number] Acct: [id number] Name: TEMITAMARA Rep #: [id number] : 1970 53 From: Vijay Mcclelland MD Primary Care: ALEXA Bob, EMPLOYMENT OFFICE CLERK-C Status: REG CLI Referring Dr: Javier Morales [...] for age This note was generated with Skywordation software. It may contain incorrect words, spelling, and punctuation that were not noted in checking the note before signing. 06/17/241444 Date Vijay Mcclelland MD CC: Bishnu EMPLOYMENT OFFICE CLERK-C Blanquita Lim; Dr. Javier Morales MD Date Dictated: 06/17/241441 Date Transcribed: 06/17/241441 Vehicle Service Attendant: NN Signed Normal [facility] 12 Lead EKG performed by [facility] on 05-23-2024 12 Lead EKG performed by [address] [address] 12 Lead EKG performed by [facility] 05/23/24 1319 MR#: [id number] Acct: [id number] Name: TEMITAMARA A Rep #: [id number] : 1970 53 From: Javier Morales MD Attending Dr: Dr. Javier Morales MD Status: DE P AMB Ordering Dr: Javier Morales MD Date: 05/23/24 [place] [facility] [place] F C Admitted: [facility]/12 Lead EKG performed by [facility] ECG Report Interpretation ---Sinus Rhythm WITHIN NORMAL LIMITSElectronically signed on 05/23/2024 at 14:[address] Javier Morales [employer] Software Version 8610 05/23/24 1501 Date Javier Morales MD CC: ALEXA Lim Date Dictated: 05/23/241318 Date Transcribed: 05/23/241318 Vehicle Service Attendant: Signed Normal [facility] Cardiology Visit Reporton Cardiology Visit Report [facility] [address] [place] [address] OFFICE VISIT Date of Service: 05/23/24 MR#: [id number] Acct: [id number] Name: TAMARA JOES Rep #: [id number] : 1970 Provider: Dr. Javier krueger MD Age/Sex: 53/F Location: [facility] Status: Signed with Addenda ADDENDUM by Dr. Javier Moraels MD on 05/23/24 at 1343 Addendum Addendum Details:: ECG in office today showed normal sinus rhythm and is within normal limits. Heart rate was 75. Assessment and Plan Assessment and Plan (1) Hyperlipidemia: Status: Acute Qualifiers: Hyperlipidemia type: pure hypercholesterolemia Qualified Code(s): E78.00 - Pure hypercholesterolemia, unspecified (2) CAD (coronary artery disease): Status: Acute Qualifiers: Coronary Disease-Associated Artery/Lesion type: algaaciq artery [place] vs. transplanted heart: alga[place]q heart Associated angina: without angina Qualified Code(s): I25.10 - Atherosclerotic heart disease of algaaciq coronary artery without angina pectoris (3) Hypertension: Status: Chronic Qualifiers: Hypertension type: primary hypertension Qualified Code(s): I10 - Essential (primary) hypertension Comment: ON MEDS Orders: Orders 12 Lead EKG performed by [facility] Today E78.5 - Hyperlipidemia, unspecified Lipid Profile 3 Months E78.5 - Hyperlipidemia, unspecified Liver Profile 3 Months E78.5 - Hyperlipidemia, unspecified Stress Test Regular 2 Weeks E78.5 - Hyperlipidemia, unspecified, I25.10 - Atherosclerotic heart disease of algaaciq coronary artery without angina pectoris Medications: New atorvastatin 80 mg PO QDAY 30 tabs 3RF Discontinued atorvastatin Discontinued Reason: Order Changed 10 mg PO QDAY Plan Details Follow Up: 3 Years (As needed) 05/23/24 1343 Date Javier Morales MD cc: [facility] EMPLOYMENT OFFICE CLERK-Bishnu CampBlanquita Raphael * Signed HPI HPI History of Present Illness Details: Patient is a 53-year-old white female that comes in today for new patient visit. Patient was referred for elevated calcium scoring. 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 Normal [facility] Coronary Angiography CTon Coronary Angiography CT [facility] Imaging Services [address] [place] [address] 03/24/24 0810 MR#: [id number] Acct: [id number] Name: TEMITAMARA A Rep #: [id number] : 1970 53 From: Jhon Caldwell MD PCP: Blanquita Lim Bishnu, EMPLOYMENT OFFICE CLERK-C Status:REG CLI Y Location: CT Calcium Scoring [...] Moderate atherosclerotic plaquing noted in 1-2 vessels. 03/24/24 0812 Date Jhon Oviedo Signature (if applicable): Date CC: [facility] JASMINAC Blanquita Lim; Dr. Jhon Caldwell MD Signed Normal [facility] Limited Chest CT Cardiac [facility] 03-24-[address] Cardiac Only [facility] Imaging Services [address] [place] [address] Cardiac Only MR#: [id number] Acct: [id number] Name: TAMARA JOSE Rep #: [id number] : 1970 F 53 From: Misha whitten MD PCP: ALEXA Bob, EMPLOYMENT OFFICE CLERK-C Status: [facility] Study: Limited Chest CT Cardiac Only Date of Exam: Exam# [id number] Ordering Dr: Blanquita Lim EMPLOYMENT OFFICE CLERK-C [id number] STUDY: CT CHEST WITHOUT CONTRAST REASON FOR [...] Signed: Misha Machado MD at 12:20 EST , CC: [facility] JESSICA Lim Vehicle Service Attendant: Signed Normal [facility] PAP IG w/Reflex HPV GDLNon 1 Path.prov.IDC-9 Comment Normal [facility] Comment on above: Order Comment: Speci men Comment: Source.............CervixSpecimen Comment: Other..............Post Menopausal;OtherSpecimen Comment: No. of containers..01 ThinPrep Vial Performed By: #### L 504.2610, L501.3620 #### [facility] [address] [place], [address] Microscopic method Nom (U)Or dered By: Zoraida Gaspar on 03-03-2023 Bacteria LM.HPF (Urine sed) [#/Area] Few Abnormal None /HPF [facility] Interpretation and review of laboratory results Abnormal [facility] Leukocyte clumps LM.HPF (Urine sed) [#/Area] Few Abnormal None /HPF [facility] RBC LM.HPF (Urine sed) [#/Area] 51-100 Abnormal [facility] WBC LM.HPF (Urine sed) [#/Area] 51-100 Abnormal [facility] Urinalysis dipstick W Reflex Microscopic panel (U)on 03-03-2023 Bacteria, Urine Few Abnormal None [facility] Comment on above: Performed By: #### 5 7020-0 #### [facility] [address] [place] [address] RBC, Urine 51-100 Abnormal 0-5 [facility] Comment on above: Performed By: #### 5 7020-0 #### [facility] [address] [place] [address] WBC Clumps, Urine Few Abnormal None [facility] Comment on above: Performed By: #### 5 7020-0 #### [facility] [address] [place] [address] WBC, Urine 51-100 Abnormal 0-5 [facility] Comment on above: Performed By: #### 5 7020-0 #### [facility] [address] [place] [address] Bilirubin Ql (U) Negative Negative mg/dL [facility] Clarity (U) Hazy Abnormal Clear [facility] Color (U) Light Yellow Abnormal Yellow [facility] Glucose Ql (U) Normal Normal mg/dL [facility] Hemoglobin Ql (U) 3+ Abnormal Negative eryth/mcL [facility] Interpretation and review of laboratory results Abnormal [facility] Ketones (U) [Mass/Vol] Negative Negat madyson mg/dL [facility] Leukocyte esterase Test strip Ql (U) 500 Abnormal Negative WBCs/mcL [facility] Nitrite Ql (U) Negative Negative [facility] pH (U) 7.5 [pH] 5.0 - 8.0 pH [facility] Protein (U) [Mass/Vol] 30 mg/dL Abnormal Negative Tr [facility] Specific gravity (U) [Rel density] 1.010 1.002 - 1.030 [facility] Urobilinogen (U) [Mass/Vol] Normal Normal mg/dL [facility] CMP with eGFRon 01-19-2023 AGE 52 years Normal [facility] Comment on above: Performed By: #### 2 07139 #### [facility],[address] [place] [address] Albumin [Mass/Vol] 3.6 g/dL Normal 3.4 - 5.0 [facility] Comment on above: Performed By: #### 2 09829 #### [facility],[address] [place], [place] [address] Albumin/Globulin [Mass ratio] 1.0 {ratio} Normal 0.9 - 1.6 [facility] Comment on above: Performed By: #### 2 61501 #### [facility],[address] [place] [address] ALK PHOS 96 U/L Normal 46 - 116 [facility] Comment on above: Performed By: #### 2 56389 #### [facility],[address] [place] [address] ALT [Catalytic activity/Vol] 54 U/L Normal 14 - 59 [facility] Comment on above: Performed By: #### 2 99167 #### [facility],[address] [place] [address] Anion gap [Moles/Vol] 13 mmol/L Normal 10 - 20 [facility] Comment on above: Performed By: #### 2 00887 #### [facility],[address] [place] [address] AST [Catalytic activity/Vol] 38 U/L Normal 13 - 39 [facility] Comment on above: Performed By: #### 2 94492 #### [facility],[address] [place] [address] B/C RATIO 12 ratio Normal 0 - 30 [facility] Comment on above: Performed By: #### 2 27207 #### [facility],[address] [place] [address] Bilirubin [Mass/Vol] 0.3 mg/dL Normal 0.2 - 1.0 [facility] Comment on above: Performed By: #### 2 60628 #### [facility] [facility] [place] [address] Calcium [Mass/Vol] 8.8 mg/dL Normal 8.5 - 10.1 [facility] Comment on above: Performed By: #### 2 05252 #### [facility],[address] [place], [place] [address] Chloride [Moles/Vol] 104 mmol/L Normal 98 - 107 [facility] Comment on above: Performed By: #### 2 88464 #### [facility],[address] [place] [address] CMP with eGFR Normal [facility] Comment on above: Result Comment: COMP REHENSIVE METABOLIC PANEL Performed By: #### 2 74162 #### [facility],[address] [place] [address] 18183 CO2 [Moles/Vol] 27.9 mmol/L Normal 21.0 - 32.0 [facility] Comment on above: Performed By: #### 2 71118 #### [facility],[address] [place] [address] 74955 Creatinine [Mass/Vol] 0.75 mg/dL Normal 0.55 - 1.02 [facility] Comment on above: Performed By: #### 2 87314 #### [facility],[address] [place], [place] [address] GFR/1.73 sq M.predicted among non-blacks MDRD (S/P/Bld) [Vol rate/Area] mL/min/{1.73_m2} Normal 60 - 999 [facility] Comment on above: Performed By: #### 2 03467 #### [facility],[address] [place] [address] 27214 Result Comment: ACCO RDING TO THE NATIONAL KIDNEY DISEASE EDUCATION PROGRAM(NKDE), A NORMAL eGFR IS A VALUE GREATER THAN OR EQUAL TO 60 ML/MIN/1.73 SQ METERS. CHRONIC KIDNEY DISEASE: <60mL/MIN/1.73 SQ METERS KIDNEY FAILURE: <15mL/MIN/1.73 SQ METERS THIS TEST SHOULD ONLY BE USED FOR PATIENTS 18 YEARS OF AGE AND OLDER. Globulin (S) [Mass/Vol] 3.5 g/dL Normal 1.5 - 3.8 [facility] Comment on above: Performed By: #### 2 48915 #### [facility],[address] [place] [address] 58092 Glucose [Mass/Vol] 147 mg/dL High 74 - 106 [facility] Comment on above: Performed By: #### 2 79535 #### [address] [address] Potassium [Moles/Vol] 3.7 mmol/L Normal 3.5 - 5.1 [facility] Comment on above: Performed By: #### 2 04461 #### [facility],[address] [place] [address] 71158 Protein [Mass/Vol] 7.1 g/dL Normal 6.4 - 8.2 [facility] Comment on above: Performed By: #### 2 65461 #### [facility],[address] [place] [address] 42379 Sodium [Moles/Vol] 141 mmol/L Normal 136 - 145 [facility] Comment on above: Performed By: #### 2 22535 #### [facility],[address] [place], [place] [address] Urea nitrogen [Mass/Vol] 9 mg/dL Normal 7 - 18 [facility] Comment on above: Performed By: #### 2 36809 #### [address] [address] T4-FREE (FREE THYROXINE)on Free T4 [Mass/Vol] 0.90 ng/dL Normal 0.76 - 1.46 [facility] Comment on above: Result Comment: P otential of falsely elevated results when biotin concentrations are > 10 ng/mL. Performed By: #### 2 30086 #### [address] [address] TSHon 01-19-2023 TSH Qn 4.05 m[IU]/L High 0.35 - 3.74 [facility] Comment on above: Performed By: #### 2 97988 #### [address] [address] HGB A1C [CCL]on 10-18-2022 HbA1c (Bld) [Mass fraction] 5.6 % Normal 4.3-5.6 [facility] Comment on above: Result Comment: [place] Diabetes Association guidelines indicate that patients with HgbA1c in the range 5.7-6.4% are at increased risk for development of diabetes, and intervention by lifestyle modification may be beneficial. HgbA1c greater or equal to 6.5% is considered diagnostic of diabetes. Performed By: #### 2 08890 #### [address] [address] Hemoglobin A0 114 mg/dL Normal [facility] Comment on above: Result Comment: eAG: (Estimated average glucose) is a calculated value from HgbA1c and is herbicide service sales representative of the average blood glucose level in the last 2-[address] [facility] [address] [place] [address] Chris Hinojosa III, M.D. [id number] Performed By: #### 2 47651 #### [facility],[address] [place] [address] T4-FREE (FREE THYROXINE)on 0 10-17-2022 Free T4 [Mass/Vol] 0.79 ng/dL Normal 0.76 - 1.46 [facility] Comment on above: Result Comment: P otential of falsely elevated results when biotin concentrations are > 10 ng/mL. Performed By: #### 2 40755 #### [facility],[address] [place] [address] TSHon 10-17-2022 TSH Qn 5.46 m[IU]/L High 0.35 - 3.74 [facility] Comment on above: Performed By: #### 2 28898 #### [place] [id number] [employer] Cytology Reporton 2022 [employer] Cytology Report . Pathology Reports Accession: Collected Date/Time: Received Date/Time: Pathologist: [id number] 07/21/2022 09:53 EDT 07/21/2022 18:00 EDT JOCY REA MD [employer] Cytology Report SPECIMEN: Specimen Description: Liquid Prep w/ HPV Specimen: Cervical/Endocervical Screening or Diagnostic: Screening RELEVANT HISTORY: LMP: menopausal [id number] SPECIMEN ADEQUACY: SATISFACTORY FOR EVALUATION Endocervical/Transforma tional zone component present INTERPRETATION/RESULTS: EPITHELIAL CELL ABNORMALITIES, [...] and evaluated with the assistance of the [employer] ThinPrep Test Imaging System. Pathology Reports Accession: Collected Date/Time: Received Date/Time: Pathologist: [id number] 07/21/2022 09:53 EDT 07/21/2022 18:00 EDT JOCY REA MD Electronically Signed by Pathology report verified by [facility] Screened by: PANTERA GRIFFIN Electronically signed by JOCY REA Sign-Out Date: 07/27/2022 11:59 Performing Lab: [facility], [address] [place] [address] Pathology Dept Disclaimer The Pap test is a screening test for cervical cancer. As evidenced by published data, it is subject to both inherent false negative and false positive results. Your patient's results should be interpreted in context with pertinent clinical history including gynecological examination. Normal [facility] [place] HPVon 07-26-2022 HPV Interp Normal See Inter HPVN [facility] Comment on above: Order Comment: Order placed by AP_HPV_ORDER rule from [id number] Result Comment: High Risk HPV Typing: NEGATIVE [...] and sufficient DNA to be detected. See Interp HPVN Performed By: #### H PV #### [facility] [address] [place] [address]227 HPV Source Cervix Normal [facility] Comment on above: Order Comment: Order placed by AP_HPV_ORDER rule from [id number] Performed By: #### H PV #### [facility] [address] [place] [address]31 CBC + DIFFon 07-21-2022 Baso # 0.00 x10EE3/UL Normal 0.00 - 0.10 [facility] Comment on above: Performed By: #### 2 17237 #### [facility],[address] [place] [address]150 Basophils/100 WBC (Bld) 0.9 % Normal 0.0 - 2.0 [facility] Comment on above: Performed By: #### 2 40896 #### [facility],[address] [place] [address] 30058 CBC + DIFF Normal [facility] Comment on above: Result Comment: CBC- COMPLETE BLOOD COUNT Performed By: #### 2 01340 #### [facility],[address] [place] [address] 29216 EO # 0.20 x10EE3/UL Normal 0.00 - 0.50 [facility] Comment on above: Performed By: #### 2 63684 #### [facility],[address] [place] [address] Eosinophils/100 WBC (Bld) 4.4 % Normal 0.0 - 7.0 [facility] Comment on above: Performed By: #### 2 55128 #### [facility],[address] [place] [address] 32088 Erythrocyte distribution width (RBC) [Ratio] 13.3 % Normal 12.0 - 15.6 [facility] Comment on above: Performed By: #### 2 13861 #### [facility],[address] [place] [address] Hematocrit (Bld) [Volume fraction] 41.2 % Normal 34.0 - 46.0 [facility] Comment on above: Performed By: #### 2 89692 #### [facility],[address] [place] [address] Hemoglobin (Bld) [Mass/Vol] 14.1 g/dL Normal 12.0 - 16.0 [facility] Comment on above: Performed By: #### 2 89553 #### [facility],[address] [place] [address] Lymph # 1.50 x10EE3/UL Normal 0.80 - 2.80 [facility] Comment on above: Performed By: #### 2 00526 #### [facility],[address] [place] [address] Lymphocytes/100 WBC (Bld) 28.9 % Normal 20.0 - 45.0 [facility] Comment on above: Performed By: #### 2 89684 #### [facility],[address] [place], [place] [address] MANUAL DIFF N/A Normal [facility] Comment on above: Performed By: #### 2 50770 #### [facility],[address] [place], [place] [address] MCH (RBC) [Entitic mass] 31 pg Normal 27 - 33 [facility] Comment on above: Performed By: #### 2 78269 #### [facility],[address] [place] [address]287 MCHC 34 X10 3 Normal 32 - 36 [facility] Comment on above: Performed By: #### 2 93534 #### [facility],[address] [place] [address] 88211 MCV (RBC) [Entitic vol] 91 fL Normal 80 - 99 [facility] Comment on above: Performed By: #### 2 52620 #### [facility],[address] [place], [place] [address] [place] # 0.50 x10EE3/UL Normal 0.20 - 1.00 [facility] Comment on above: Performed By: #### 2 84598 #### [facility],[address] [place] [address] 88475 MONOS % 9.5 % Normal 0.0 - 10.0 [facility] Comment on above: Performed By: #### 2 51112 #### [facility],[address] [place] [address] 68544 Morphology Michael (Bld) [Interp] N/A Normal [facility] Comment on above: Performed By: #### 2 56215 #### [facility],[address] [place] [address] 56908 Neut # 2.80 x10EE3/UL Normal 1.50 - 7.10 [facility] Comment on above: Performed By: #### 2 66175 #### [facility],[address] [place] [address] 79841 Neutrophils/100 WBC (Bld) 56.3 % Normal 46.0 - 76.0 [facility] Comment on above: Performed By: #### 2 48617 #### [facility],[address] [place] [address] 32204 PLATELET 242 x10EE3/UL Normal 150 - 450 [facility] Comment on above: Performed By: #### 2 80149 #### [facility],[address] [place] [address] 05187 Platelet mean volume (Bld) [Entitic vol] 9.8 fL Normal 6.6 - 10.5 [facility] Comment on above: Result Comment: AUTO MATED DIFFERENTIAL Performed By: #### 2 18069 #### [facility],[address] [place] [address] 37730 RBC 4.51 x 10EE6/UL Normal 4.10 - 5.30 [facility] Comment on above: Performed By: #### 2 50368 #### [facility],[address] [place] [address] 77907 WBC 5.1 x 10EE3/UL Normal 4.5 - 10.8 [facility] Comment on above: Performed By: #### 2 90840 #### [facility],[address] [place] [address] 35073 CMP with eGFRon 07-21-2022 AGE 51 years Normal [facility] Comment on above: Performed By: #### 2 59019 #### [facility],[address] [place] [address] Albumin [Mass/Vol] 4.3 g/dL Normal 3.4 - 5.0 [facility] Comment on above: Performed By: #### 2 82774 #### [facility],[address] [place] [address] Albumin/Globulin [Mass ratio] 1.3 {ratio} Normal 0.9 - 1.6 [facility] Comment on above: Performed By: #### 2 30791 #### [facility],[address] [place], [place] [address] ALK PHOS 103 U/L Normal 46 - 116 [facility] Comment on above: Performed By: #### 2 16839 #### [facility],[address] [place] [address] 40591 ALT [Catalytic activity/Vol] 71 U/L High 14 - 59 [facility] Comment on above: Performed By: #### 2 84351 #### [facility],[address] [place] [address] 03468 Anion gap [Moles/Vol] 14 mmol/L Normal 10 - 20 [facility] Comment on above: Performed By: #### 2 31874 #### [address] [address] AST [Catalytic activity/Vol] 50 U/L High 13 - 39 [facility] Comment on above: Performed By: #### 2 80410 #### [facility],[address] [place] [address] 12199 B/C RATIO 22 ratio Normal 0 - 30 [facility] Comment on above: Performed By: #### 2 46310 #### [facility],[address] [place] [address] 35466 Bilirubin [Mass/Vol] 0.4 mg/dL Normal 0.2 - 1.0 [facility] Comment on above: Performed By: #### 2 65456 #### [facility],[address] [place] [address]607 Calcium [Mass/Vol] 9.5 mg/dL Normal 8.5 - 10.1 [facility] Comment on above: Performed By: #### 2 81207 #### [facility],[address] [place] [address]123 Chloride [Moles/Vol] 106 mmol/L Normal 98 - 107 [facility] Comment on above: Performed By: #### 2 56335 #### [facility],[address] [place] [address]9828 CMP with eGFR Normal [facility] Comment on above: Result Comment: COMP REHENSIVE METABOLIC PANEL Performed By: #### 2 41567 #### [facility],[address] [place] [address] 78761 CO2 [Moles/Vol] 30.3 mmol/L Normal 21.0 - 32.0 [facility] Comment on above: Performed By: #### 2 89869 #### [facility],[address] [place] [address] 95397 Creatinine [Mass/Vol] 0.87 mg/dL Normal 0.55 - 1.02 [facility] Comment on above: Performed By: #### 2 77988 #### [facility],[address] [place] [address] 88864 GFR/1.73 sq M.predicted among non-blacks MDRD (S/P/Bld) [Vol rate/Area] mL/min/{1.73_m2} Normal 60 - 999 [facility] Comment on above: Performed By: #### 2 79646 #### [facility],[address] [place] [address] 16873 Result Comment: ACCO RDING TO THE NATIONAL KIDNEY DISEASE EDUCATION PROGRAM(NKDE), A NORMAL eGFR IS A VALUE GREATER THAN OR EQUAL TO 60 ML/MIN/1.73 SQ METERS. CHRONIC KIDNEY DISEASE: <60mL/MIN/1.73 SQ METERS KIDNEY FAILURE: <15mL/MIN/1.73 SQ METERS THIS TEST SHOULD ONLY BE USED FOR PATIENTS 18 YEARS OF AGE AND OLDER. Globulin (S) [Mass/Vol] 3.3 g/dL Normal 1.5 - 3.8 [facility] Comment on above: Performed By: #### 2 39399 #### [facility],[address] [place] [address] 19677 Glucose [Mass/Vol] 109 mg/dL High 74 - 106 [facility] Comment on above: Performed By: #### 2 25106 #### [facility],[address] [place] [address] 21846 Potassium [Moles/Vol] 4.1 mmol/L Normal 3.5 - 5.1 [facility] Comment on above: Performed By: #### 2 26167 #### [facility],[address] [place] [address] 56025 Protein [Mass/Vol] 7.6 g/dL Normal 6.4 - 8.2 [facility] Comment on above: Performed By: #### 2 74753 #### [facility],[address] [place] [address] 23821 Sodium [Moles/Vol] 146 mmol/L High 136 - 145 [facility] Comment on above: Performed By: #### 2 55832 #### [facility],[address] [place] [address] 37137 Urea nitrogen [Mass/Vol] 19 mg/dL High 7 - 18 [facility] Comment on above: Performed By: #### 2 72165 #### [address],[place] [address] LIPID PROFILEon 07-21-2022 Cholesterol [Mass/Vol] 185 mg/dL Normal 0 - 240 [facility] Comment on above: Performed By: #### 2 61458 #### [facility],[address] [place] [address] 97386 Cholesterol in HDL [Mass/Vol] 67 mg/dL High 40 - 60 [facility] Comment on above: Performed By: #### 2 86865 #### [facility],[address] [place] [address] 88522 Cholesterol in LDL [Mass/Vol] 107 mg/dL Normal 0 - 129 [facility] Comment on above: Performed By: #### 2 00719 #### [facility],[address] [place] [address] 71008 Cholesterol.total/Darlene sterol in HDL [Mass ratio] 2.8 {ratio} Normal 0.0 - 5.0 [facility] Comment on above: Performed By: #### 2 54293 #### [facility],[address] [place] [address] 07833 Lipid 1996 panel Normal [facility] Comment on above: Result Comment: LIPI D PROFILE Performed By: #### 2 51986 #### [facility],[address] [place] [address] 68054 Triglyceride [Mass/Vol] 55 mg/dL Normal 0 - 150 [facility] Comment on above: Performed By: #### 2 33234 #### [facility],[address] [place] [address] 17216 T4-FREE (FREE THYROXINE)on 0 07-21-2022 Free T4 [Mass/Vol] 0.62 ng/dL Low 0.76 - 1.46 [facility] Comment on above: Result Comment: P otential of falsely elevated results when biotin concentrations are > 10 ng/mL. Performed By: #### 2 25014 #### [facility],[address] [place] [address] 41966 TSHon 07-21-2022 TSH Qn 10.50 m[IU]/L High 0.35 - 3.74 [facility] Comment on above: Performed By: #### 2 50348 #### [facility],[address] [place] [address] 52224 VITAMIN D, 25 HYDROXYon 07-02 VitD 25.70 ng/mL Low 30.00 - 100 [facility] Comment on above: Result Comment: 25-O HD3 [...] D2 Not Established Performed By: #### 2 57750 #### [facility],[address] [place] [address] 64270 Vital Signs Date Time Vital Sign Value Performing Clinician Facility 10-08-2024 08:13-0400 Body temperature 98.5 [degF] Blanquita Lim NP-C Work Phone: [facility] 10-08-2024 08:13-0400 Diastolic blood pressure 92 mm[Hg] Blanquita Lim EMPLOYMENT OFFICE CLERK-C Work Phone: [facility] 10-08-2024 08:13-0400 Heart rate 99 /min Blanquita Lim NP-C Work Phone: [facility] 10-08-2024 08:13-0400 Respiratory rate 16 /min Blanquita Lim NP-C Work Phone: [facility] 10-08-2024 08:13-0400 SaO2% (BldA) [Mass fraction] 95 % Blanquita Lim NP-C Work Phone: [facility] 10-08-2024 08:13-0400 Systolic blood pressure 142 mm[Hg] Blanquita Raphael EMPLOYMENT OFFICE CLERK-C Work Phone: 3(033)[phone] [place] [address] 10-06-2024 18:44-0400 Body height 172.72 cm Blanquita Lim EMPLOYMENT OFFICE CLERK-C Work Phone: 6(885)189-873775 [place] [address] 10-06-2024 18:44-0400 Body mass index (BMI) [Ratio] 30 kg/m2 Blanquita Lim EMPLOYMENT OFFICE CLERK-C Work Phone: 9(862)729-940461 [place] [address] 10-06-2024 18:44-0400 Body weight 89.7 kg Blanquita Lim EMPLOYMENT OFFICE CLERK-C Work Phone: 4(885)703-986075 [place] [address] 10-06-2024 16:57-0400 Body temperature 98.1 [degF] Blanquita Lim EMPLOYMENT OFFICE CLERK-C Work Phone: 0(605)226-202375 [place] [address] 10-06-2024 16:57-0400 Diastolic blood pressure 74 mm[Hg] Blanquita Lim EMPLOYMENT OFFICE CLERK-C Work Phone: 2(513)177-264875 [place] [address] 10-06-2024 16:57-0400 Heart rate 78 /min Blanquita Lim EMPLOYMENT OFFICE CLERK-C Work Phone: 7(132)958-716675 [place] [address] 10-06-2024 16:57-0400 Respiratory rate 15 /min Blanquita Lim EMPLOYMENT OFFICE CLERK-C Work Phone: 7(626)[phone] [place] [address] 10-06-2024 16:57-0400 SaO2% (BldA) [Mass fraction] 99 % Blanquita Lim EMPLOYMENT OFFICE CLERK-C Work Phone: 5(895)073-178575 [place] [address] 10-06-2024 16:57-0400 Systolic blood pressure 112 mm[Hg] Blanquita Lim EMPLOYMENT OFFICE CLERK-C Work Phone: 5(478)959-138375 [place] [address] 10-06-2024 09:10-0400 Body height 172.72 cm Blanquita Lim EMPLOYMENT OFFICE CLERK-C Work Phone: 5(803)257-349675 [place] [address] 10-06-2024 09:10-0400 Body mass index (BMI) [Ratio] 30 kg/m2 Blanquita Lim EMPLOYMENT OFFICE CLERK-C Work Phone: 0(344)[phone] [address] 10-06-2024 09:10-0400 Body weight 89.72 kg Blanquita Lim EMPLOYMENT OFFICE CLERK-C Work Phone: [facility] 05-23-2024 13:02-0500 Body height 172.72 cm Blanquita Lim EMPLOYMENT OFFICE CLERK-C Work Phone: [facility] 05-23-2024 13:02-0500 Body mass index (BMI) [Ratio] 30.7 kg/m2 Blanquita Lim EMPLOYMENT OFFICE CLERK-C Work Phone: [facility] 05-23-2024 13:02-0500 Body weight 91.62 kg Blanquita Lim EMPLOYMENT OFFICE CLERK-C Work Phone: [facility] 05-23-2024 13:02-0500 Diastolic blood pressure 82 mm[Hg] Blanquita Lim EMPLOYMENT OFFICE CLERK-C Work Phone: [facility] 05-23-2024 13:02-0500 Heart rate 70 /min Blanquita Lim EMPLOYMENT OFFICE CLERK-C Work Phone: [facility] 05-23-2024 13:02-0500 Respiratory rate 18 /min Blanquita Lim EMPLOYMENT OFFICE CLERK-C Work Phone: [facility] 05-23-2024 13:02-0500 SaO2% (BldA) [Mass fraction] 98 % Blanquita Lim EMPLOYMENT OFFICE CLERK-C Work Phone: [facility] 05-23-2024 13:02-0500 Systolic blood pressure 121 mm[Hg] Blanquita Lim EMPLOYMENT OFFICE CLERK-C Work Phone: [facility] 08-20-2023 16:48-0400 Body height 172.7 cm Stayci Natterer DO Work Phone: [facility] 08-20-2023 16:48-0400 Body mass index (BMI) [Ratio] 29.19 kg/m2 Stay Natterer DO Work Phone: [facility] 08-20-2023 16:48-0400 Body temperature 98.2 [degF] Stayci Natterer DO Work Phone: [facility] 08-20-2023 16:48-0400 Body weight 87.09 kg Stayci Natterer DO Work Phone: [facility] 08-20-2023 16:48-0400 Diastolic blood pressure 105 mm[Hg] Stayci Natterer DO Work Phone: [facility] 08-20-2023 16:48-0400 Heart rate 86 /min Stayci Natterer DO Work Phone: [facility] 08-20-2023 16:48-0400 Respiratory rate 18 /min Stayci Natterer DO Work Phone: [facility] 08-20-2023 16:48-0400 SaO2% (BldA) [Mass fraction] 100 % Stayci Natterer DO Work Phone: [facility] 08-20-2023 16:48-0400 Systolic blood pressure 156 mm[Hg] Stayci Natterer DO Work Phone: [facility] 03-03-2023 17:24-0500 Body height 175.3 cm Christi Morgan MD Work Phone: [facility] 03-03-2023 17:24-0500 Body mass index (BMI) [Ratio] 28.35 kg/m2 Christi Morgan MD Work Phone: [facility] 03-03-2023 17:24-0500 Body temperature 97.39 [degF] Christi Morgan MD Work Phone: [facility] 03-03-2023 17:24-0500 Body weight 87.09 kg Christi Morgan MD Work Phone: [facility] 03-03-2023 17:24-0500 Diastolic blood pressure 94 mm[Hg] Christi Morgan MD Work Phone: [facility] 03-03-2023 17:24-0500 Heart rate 94 /min Christi Morgan MD Work Phone: [facility] 03-03-2023 17:24-0500 Respiratory rate 16 /min Christi Morgan MD Work Phone: [facility] 03-03-2023 17:24-0500 SaO2% (BldA) [Mass fraction] 97 % Christi Morgan MD Work Phone: [facility] 03-03-2023 17:24-0500 Systolic blood pressure 140 mm[Hg] Christi Morgan MD Work Phone: [facility] Encounters Encounter Date Encounter Type Care Provider Facility Start: 10-13-2024 ambulatory [facility] Facility :[facility] Start: 10-10-2024 ambulatory [facility] Facility :[facility] Start: 10-07-2024 Non-patient / Non-visit Dr. Barbara Leal DO -[facility] Work Phone: Start: 10-06-2024 End: 10-08-2024 Evaluation and management of inpatient Dr. Estrella Gross MD -[facility] 3 Work Phone: Start: 10-06-2024 ambulatory Estrella Gross Facility:[facility] Start: 10-06-2024 Non-patient / Non-visit Dr. Estrella benavides MD -[facility] Work Phone: Start: 09-10-2024 End: 09-10-2024 ambulatory Blanquita Lim EMPLOYMENT OFFICE CLERK-C Work Phone: [facility] Work Phone: Start: 09-10-2024 End: 09-10-2024 Patient encounter procedure [facility] Blanquita Lim NP-C -Laboratory [facility]anna Mckeon Start: 09-10-2024 End: 09-10-2024 ambulatory Blanquita Lim [facility] Facility:[facility] Start: 06-20-2024 End: 06-20-2024 ambulatory Blanquita Lim EMPLOYMENT OFFICE CLERK-C Work Phone: [facility] Work Phone: Start: 06-20-2024 End: 06-20-2024 Patient encounter procedure [facility] Blanquita Lim EMPLOYMENT OFFICE CLERK-C -Outpatient Breast Imaging Work Phone: Start: 06-20-2024 End: 06-20-2024 ambulatory Blanquita Lim VSC Facility:[facility] Start: 06-17-2024 [facility] Start: 06-17-2024 Non-patient / Non-visit Dr. Geneva Mclcelland MD -[facility] Start: 06-13-2024 End: 06-13-2024 ambulatory Blanquita Lim EMPLOYMENT OFFICE CLERK-C Work Phone: [facility] Work Phone: Start: 06-13-2024 End: 06-13-[address] Javier Morales MD -[facility] Work Phone: Start: 06-13-2024 End: 06-13-20[facility] Start: 05-23-2024 End: 05-23-[address] Javier Morales MD -[facility] Work Phone: Start: 05-23-2024 End: 05-23-2024 ambulatory Blanquita Lim [facility] Facility:[facility] Start: 03-24-2024 ambulatory Blanquita Lim [facility] Fa cility:[facility] Start: 03-24-2024 Non-patient / Non-visit Dr. Patricia LIM -[facility] Start: 03-24-2024 End: 03-24-2024 Patient encounter procedure [facility] Blanquita Lim EMPLOYMENT OFFICE CLERK-C -Cat Scan, [facility] Work Phone: Start: 03-24-2024 End: 03-24-2024 [facility] Start: 03-03-2024 Encounter for gynecological examination (general) (routine) without abnormal findings Blanquita [facility] Start: 01-17-2024 ambulatory [facility] Facility:[facility] Start: 01-15-2024 End: 01-15-2024 [facility] Start: 08-20-2023 End: 08-20-2023 Emergency department patient visit ADITHYA ALFARO [facility] Start: 08-20-2023 End: 08-20-2023 Emergency department patient visit Staysteph Martines DO Work Phone: [facility] Emergency Room Comment on above: Face pain (Primary D x) Start: 08-20-2023 End: 08-20-2023 Evaluation and management of inpatient Lacie Martines DO Work Phone: [facility] Emergency [facility] Start: 08-15-2023 ambulatory [facility] Start: 08-14-2023 End: 08-14-2023 Emergency department patient visit VITA Landeros [facility]ULE[facility] Start: 06-18-2023 End: 06-18-2023 ambulatory [facility] Work Phone: Start: 06-18-2023 End: 06-18-2023 Patient encounter procedure [facility]-Outpatient Breast Imaging Work Phone: Start: 03-03-2023 End: 03-03-2023 Emergency department patient visit ADITHYA ALFARO [facility] Start: 03-03-2023 End: 03-03-2023 Emergency department patient visit Christi Morgan MD Work Phone: [facility] Emergency Room Comment on above: Acute cystitis witho ut hematuria (Primary Dx) Start: 03-03-2023 End: 03-03-2023 Evaluation and management of inpatient Christi Morgan MD Work Phone: [facility] Emergency [facility] Start: 01-19-2023 End: 01-19-2023 ambulatory [facility] Start: 10-17-2022 End: 10-17-2022 ambulatory [facility] Start: 07-21-2022 End: 07-21-2022 ambulatory [facility] Start: 07-21-2022 Encounter for gynecological examination (general) (routine) without abnormal findings [facility] Procedures Date Procedure Procedure Detail Performing Clinician Start: 10-07-2024 Estimated creatinine clearance Blanquita LOPEZ Work Phone: Start: 10-06-2024 Hepatitis A virus an tibody, IgM type Blanquita Lim EMPLOYMENT OFFICE CLERK-C Work Phone: Comment on above: A negative anti-HAV IgM result suggests no recent orcurrent HAV infection. Start: 10-06-2024 Hepatitis B core ant ibody measurement, IgM type Blanquita Lim EMPLOYMENT OFFICE CLERK-C Work Phone: Start: 10-06-2024 Hepatitis C antibody measurement Blanquita Lim EMPLOYMENT OFFICE CLERK-C Work Phone: Start: 10-06-2024 SARS-CoV-2, Influenz a & RSV (PCR) Blanquita Lim EMPLOYMENT OFFICE CLERK-C Work Phone: Start: 10-06-2024 Urine culture Blanquita keith EMPLOYMENT OFFICE CLERK-C Work Phone: Start: 10-06-2024 Ultrasonography of abdomen Blanquita Lim EMPLOYMENT OFFICE CLERK-C Work Phone: Start: 10-06-2024 Urnls dip stick/tabl et reagent auto microscopy Blanquita Lim EMPLOYMENT OFFICE CLERK-C Work Phone: Start: 10-06-2024 Estimated creatinine clearance Blanquita Lim EMPLOYMENT OFFICE CLERK-C Work Phone: Start: 10-06-2024 Computed tomography of abdomen and pelvis with intravenous contrast Blanquita Lim EMPLOYMENT OFFICE CLERK-C Work Phone: Start: 06-20-2024 Screening mammography Phani Lim EMPLOYMENT OFFICE CLERK-C Work Phone: Start: 05-23-2024 Evaluation of diagno stic study results Blanquita Lim EMPLOYMENT OFFICE CLERK-C Work Phone: Start: 03-24-2024 CT angiography of co ronary arteries Blanquita Lim EMPLOYMENT OFFICE CLERK-C Work Phone: Start: 06-18-2023 Screening mammography Start: 03-03-2023 Urnls dip stick/tabl et reagent auto microscopy Christi Morgan MD Work Phone: Plan of Treatment Date Care Activity Detail Author Start: 10-08-2024 Patient discharge [facility] Start: 10-08-2024 [facility] Start: 10-07-2024 Care planning and problem solving actions [facility] Start: 10-07-2024 Prothrombin time [facility] Start: 10-07-2024 Thyroid stimulating hormone measurement [facility] Start: 10-06-2024 Following clinical pathway protocol [facility] Start: 10-06-2024 Assessment of risk of venous thromboembolism [facility] Start: 10-06-2024 Inhalation therapy procedure [facility] Start: 10-06-2024 Insertion of catheter into peripheral vein [facility] Start: 10-06-2024 Measuring intake and output [facility] Start: 10-06-2024 Providing care according to standard [facility] Start: 10-06-2024 Provision of activity privileges [facility] Start: 10-06-2024 [facility] Start: 10-06-2024 Verification routine [facility] Start: 10-06-2024 Admission procedure [facility] Start: 10-06-2024 Bacteria identified in Urine by Culture Urine Culture [facility] Start: 10-06-2024 [facility] Start: 12-02-2023 Influenza vaccination Influenza Vaccine (Season Ended) [facility] Start: 08-20-2023 Hypertension/CHF/CAD Annual BMP Blood Test Hypertension/CHF/CAD Annual BMP Blood Test [facility] Start: 03-03-2023 Adolescent depression screening assessment Depression Screening [facility] Start: 03-03-2023 Hepatitis C screening Hepatitis C Screening [facility] Start: 03-03-2023 HIV screening HIV Screening [facility] Start: 03-03-2023 Lipid panel Cholesterol Screening (Lipid Panel) [facility] Start: 03-03-2023 Screening for malignant neoplasm of breast Breast Cancer Screening [facility] Start: 03-03-2023 Screening for malignant neoplasm of colon Colorectal Cancer Screening: Colonoscopy [facility] Start: 03-03-2023 Social Influencers of Health Screening Social Influencers of Health Screening [facility] Start: 12-01-2022 COVID-19 Vaccine ( season) COVID-19 Vaccine ( season) [facility] Start: 12-01-2022 Influenza vaccination Influenza Vaccine (#1) [facility] Start: 09-28-2019 Zoster Vaccines (1 of 2) Zoster Vaccines (1 of 2) [facility] Start: 1990 Screening for malignant neoplasm of cervix Cervical Cancer Screening: Pap Smear [facility] Start: 1988 DTaP,Tdap,and Td Vaccines (1 - Tdap) DTaP,Tdap,and Td Vaccines (1 - Tdap) [facility] Start: 1988 Hepatitis B Vaccines (1 of 3 - 19+ 3-dose series) Hepatitis B Vaccines (1 of 3 - 19+ 3-dose series) [facility] Start: 03-29-1970 COVID-19 Vaccine (#1) COVID-19 Vaccine (#1) [facility] Start: 1969 Hepatitis B Vaccines (1 of 3 - 3-dose series) Hepatitis B Vaccines (1 of 3 - 3-dose series) [facility] Start: 1969 Screening for malignant neoplasm of breast Breast Cancer Screening [facility] Alanine aminotransfe rase [Enzymatic activity/volume] in Serum or Plasma [facility] Albumin [Mass/volume ] in Serum or Plasma [facility] Alkaline phosphatase [Enzymatic activity/volume] in Serum or Plasma [facility] Anion gap in Serum o r Plasma [facility] Bilirubin, total measurement [facility] BUN/Creatinine ratio [facility] Calcium [Mass/volume ] in Serum or Plasma [facility] Carbon dioxide, tota l [Moles/volume] in Central venous blood [facility] Creatine kinase [Enz ymatic activity/volume] in Serum or Plasma [facility] Creatinine [Mass/vol ume] in Serum or Plasma [facility] Erythrocyte mean corpuscular volume determination [facility] Glucose [Mass/volume ] in Serum or Plasma [facility] Hematocrit [Volume Fraction] of Blood [facility] Hemoglobin [Mass/vol ume] in Blood [facility] Hepatic function panel [facility] Hepatitis A virus Ig M Ab [Presence] in Serum [facility] Hepatitis B core ant ibody measurement, IgM type [facility] Hepatitis B surface antigen measurement [facility] Hepatitis C antibody measurement [facility] INR in Blood by Coag ulation assay [facility] Lactate dehydrogenas e measurement [facility] Leukocytes [#/volume ] in Blood [facility] Lipid 1996 panel - S sara or Plasma [facility] Mean corpuscular hem oglobin concentration determination [facility] Mean corpuscular hem oglobin determination [facility] Measurement of renal function [facility] Neutrophil count [facility] Neutrophil percent differential count [facility] Patient Education [facility] Work Phone: Patient referral [facility] Work Phone: Platelets [#/volume] in Blood [facility] Potassium measurement [facility] Red blood cell count [facility] Red cell distributio n width determination [facility] Serum chloride measurement [facility] Sodium measurement [facility] Total protein measurement [facility] Urea nitrogen [Mass/ volume] in Serum or Plasma [facility] Urine culture [facility] Payers Date Payer Category Payer Unknown [id number] 2024 Unknown [id number] 2024 Self-pay 2023 Medicaid [employer] [facility] [place] [employer] [id number] 2023-Present [address] [address] [place] [address] [id number] 2023 Unknown [id number] 1970 Unknown [id number]..[id number] 1970 Unknown [id number] 2..[id number] 1969 Unknown [id number] 2.16.840.1.216854.3.579.2.651 1969 Unknown [id number] 2.16.840.1.100621.3.579.2.65 1969 Unknown [id number] 2.16.840.1.710042.3.579.2.651 1969 Unknown [id number] 2.16.840.1.004150.3.579.2.651 1969 Unknown [id number] 2.16.840.1.252536.3.579.2.1143 Unknown [id number] Unknown [place] [id number] Unknown [id number] 2.16.840.1.958752.3.579.2.462 Unknown [id number] 2.16.840.1.224392.3.579.2.462 Unknown [id number] 2.16.840.1.815803.3.579.2.462 Unknown [id number] 2.16.840.1.146014.3.579.2.462 Unknown [id number] 2.16.840.1.388815.3.579.2.462 Unknown [id number] 2.16.840.1.137401.3.579.2.462 Unknown [id number] 2.16.840.1.633197.3.579.2.462 Unknown [id number] 2.16.840.1.623395.3.579.2.462 Unknown [id number] 2.16.840.1.023293.3.579.2.462 Unknown [id number] 2.16.840.1.289135.3.579.2.462 Unknown [id number] 2.16.840.1.796058.3.579.2.462 Unknown [id number] 2.16.840.1.922871.3.579.2.462 Unknown [id number] 2.16.840.1.077787.3.579.2.462 Unknown [id number] 2.16.840.1.914622.3.579.2.462 Unknown [id number] 2.16.840.1.191174.3.579.2.462 Unknown [id number] 2.16.840.1.489251.3.579.2.462 Social History Date Type Detail Facility Start: 03-03-2023 End: 10-06-2024 Tobacco smoking status NHIS Never smoked tobacco [facility] Start: 03-03-2023 Tobacco use and exposure Smokeless tobacco non-user [facility] Start: 03-03-2023 End: 08-20-2023 Alcohol intake Current drinker of alcohol (finding) [facility] Start: 03-03-2023 Alcohol Comment occassionally [facility] Start: 1970 Sex Assigned At Not on file [facility] identity [facility] 1970 Sex Assigned At Female [facility] Start: 06-24-2024 End: 06-27-2024 Sex Female (finding) [facility] Medical Equipment Procedure Code Equipment Code Equipment Origin al Text Equipment Identifier Dates Colonoscopy Ligation clip, metallic ([id number] FDA Start: 10-11-2023 Goals Date Patient Goal Desired Activity /State Functional Status Date Assessment Result Facility 10-08-2024 Functional status Ambulates [facility] Work Phone: Mental Status Date Assessment Result Facility 10-08-2024 Cognitive function Voice/Name [facility] Work Phone: Clinical Notes 03-03-2023 to 10-08-2024 Note Date & Type Note Facility 10-08-2024 Discharge summary Note Date/Time October 08, 2024 8:21a m [facility] Medical Records Department [address] [place] [address] Instructions for Home/Discharge Instructions 10/08/24 0817 MR#: [id number] Acct: [id number] Name: TAMARA JOSE Ivan Rep #:[id number] : 1970 54 From: Bayron Leal DO PCP: ALEXA Bob, EMPLOYMENT OFFICE CLERK-C Statu s:ADM IN Discharge Instructions Diet Discharge Diet: No restrictions DC O2, CPAP, BIPAP needs Home O2 Discharge instructions: No Dressing / Incision Discharge Activity: Return to Normal Activity Weight Bearing Status: Full weight bearing Follow Up Care Test Results: Test results from this visit will be discussed in further detail at your follow-up appointment, if applicable. Discharge Plan Admission Admit Date/Time: 10/06/24 17:28 Primary Reason for Your Visit: Rhabdomyolysis Attending Provider: Bayron Leal Primary Care Provider: Blanquita Lim Consulting Providers: Estrella Gross Instructions Patient Instructions: ED UTIs Women Discharge Orders/Prescriptions Prescriptions: Continued lisinopril 40 mg tablet 40 mg PO QDAY omeprazole 20 mg capsule,delayed release(DR/EC) 20 mg PO QDAY cholecalciferol (vitamin D3) [Vitamin D3] 50 mcg (2,000 unit) capsule 100 mcg PO QDAY fluticasone propionate 50 mcg/actuation spray,suspension 2 spray intranasal DAILY amlodipine 10 mg tablet 10 mg PO QDAY cranberry 500 mg capsule 500 mg PO DAILY Rx Instructions: administer with a meal Discontinued vitamin E (dl, acetate) 180 mg (400 unit) capsule 180 mg PO QDAY aspirin [Nuvia Chewable Aspirin] 81 mg tablet,chewable 1 tab PO DAILY atorvastatin 10 mg tablet 10 mg PO QHS simvastatin 20 mg tablet 20 mg PO QHS Referrals / Follow Up: Blanquita Lim, EMPLOYMENT OFFICE CLERK-C [Primary Care Provider] - In 1 Week (You will need your liver function tests redrawn, a BMP, and a CPK drawn) Disposition Disposition (needs filled in before D/C Order can be placed): Home, Self Care 10/08/24 08<Electronically signed by Bayron Leal DO>Bayron Leal DO CC: [facility] EMPLOYMENT OFFICE CLERK-C Blanquita Lim; Dr. Estrella Gross MD ~ Signed [facility] Work Phone: 1(162) 744-748707-09-2025 Discharge summary [facility] Medical Records Department [address] [place] [address] Instructions for Home/Discharge Instructions 10/08/24 0817 MR#: [id number] Acct: [id number] Name: TAMARA JOSE Rep #:[id number] : 1970 54 From: Bayron Leal DO PCP: ALEXA Bob, EMPLOYMENT OFFICE CLERK-C Statu s:ADM IN Discharge Instructions Diet Discharge Diet: No restrictions DC O2, CPAP, BIPAP needs Home O2 Discharge instructions: No Dressing / Incision Discharge Activity: Return to Normal Activity Weight Bearing Status: Full weight bearing Follow Up Care Test Results: Test results from this visit will be discussed in further detail at your follow- up appointment, if applicable. Discharge Plan Admission Admit Date/Time: 10/06/24 17:28 Primary Reason for Your Visit: Rhabdomyolysis Attending Provider: Bayron Leal Primary Care Provider: Blanquita Lim Consulting Providers: Estrella Gross Instructions Patient Instructions: ED UTIs Women Discharge Orders/Prescriptions Prescriptions: Continued lisinopril 40 mg tablet 40 mg PO QDAY omeprazole 20 mg capsule,delayed release(DR/EC) 20 mg PO QDAY cholecalciferol (vitamin D3) [Vitamin D3] 50 mcg (2,000 unit) capsule 100 mcg PO QDAY fluticasone propionate 50 mcg/actuation spray,suspension 2 spray intranasal DAILY amlodipine 10 mg tablet 10 mg PO QDAY cranberry 500 mg capsule 500 mg PO DAILY Rx Instructions: administer with a meal Discontinued vitamin E (dl, acetate) 180 mg (400 unit) capsule 180 mg PO QDAY aspirin [Nuvia Chewable Aspirin] 81 mg tablet,chewable 1 tab PO DAILY atorvastatin 10 mg tablet 10 mg PO QHS simvastatin 20 mg tablet 20 mg PO QHS Referrals / Follow Up: Blanquita Lim, EMPLOYMENT OFFICE CLERK-C [Primary Care Provider] - In 1 Week (You will need your liver function tests redrawn, a BMP, and a CPK drawn) Disposition Disposition (needs filled in before D/C Order can be placed): Home, Self Care 10/08/24 0821Bayron Leal DO CC: ALEXA EMPLOYMENT OFFICE CLERK-C Blanquita Lim; Dr. Estrella Gross MD ~ [facility]07-09-2025 [facility] Medical Records Department [address] [place] [address] Discharge Summary 10/08/24 0821 MR#: [id number] Acct: [id number] Name: TAMARA JOSE Rep #: [id number] : 1970 54 From: Bayron Leal DO PCP: ALEXA Bob, JESSICA Status:DIS IN [place] [facility] [id number] Providers Date of Admission: 10/06/24 Date of Discharge: 10/08/24 Primary Care Physician: ALEXA Bob, EMPLOYMENT OFFICE CLERK-C Reason For Visit: ELEVATED CK Diagnosis Discharge Diagnosis (1) Elevated CPK: Status: Acute Code(s): R74.8 - Abnormal levels of other serum enzymes Plan 1. Rhabdomyolysis-secondary to statin use, lab will be rechecked tomorrow, patient's creatinine remains normal #2 elevated liver function tests-etiology unclear, these appear to be trending downward at this time, patient had a CT of the abdomen as well as an ultrasound, ultrasound did not show the presence of gallstones, I do not think this was causing the elevated liver enzymes. #3 coronary artery disease-again patient will need to take something for her elevated cholesterol, her last LDL cholesterol was 75 while she was taking simvastatin but she was on a small dose. I will discuss placing her on Zetia tomorrow #4 essential hypertension-patient will remain on her present medications for blood pressure, I have elected to cut the dose of her lisinopril and amlodipine due to her normal blood pressure today, I will see if this controls her blood pressure. #5 GERD-patient is on a PPI Total clinical time spent by myself addressing the patient's medical issues, reviewing all of her data, and collaborating with the patient's care team: 35 minutes Medications at Discharge Home Medications cholecalciferol (vitamin D3) 50 mcg (2,000 unit) capsule (Vitamin D3) 100 mcg PO QDAY 07/13/23 lisinopril 40 mg tablet 40 mg PO QDAY 07/13/23 omeprazole 20 mg capsule,delayed release 20 mg PO QDAY 07/13/23 cranberry 500 mg capsule 500 mg PO DAILY 10/02/23 fluticasone propionate 50 mcg/actuation nasal spray,suspension 2 spray intranasal DAILY 04/29/24 amlodipine 10 mg tablet 10 mg PO QDAY 05/23/24 Hospital Course Operations None Procedures None Summary of Care Provided Minutes Spent on Discharge: 31 Hospital Course: This 54-year-old white female was seen in the emergency room at [facility] with a chief complaint of abdominal pain and nausea. Patient states that for the last 2 weeks prior she had felt unwell, she has a general abdominal pain nausea decreased appetite and diarrhea. Labs obtained showed a normal CBC, chemistry profile was remarkable for an AST of 458, ALT of 404, lactate dehydrogenase at 1314 and a total creatinine kinase of 5724. Urinalysis showed 3+ bacteria, 10-25 WBCs, 5-10 RBCs. Patient's leukocyte Estrace was high at 100. CT of the abdomen and pelvis showed no acute process in the abdomen or pelvis. Abdominal ultrasound was then performed which showed multiple gallstones and fatty infiltration of the liver. Patient was admitted to [place] [address] for rhabdomyolysis and given IV fluids, liver enzymes trended downward, I had a discussion with Dr. Morales who had seen the patient in his office due to a high coronary calcium score, it was recommended that the patient did take a statin and it was felt that the patient's rhabdomyolysis was probably from statin. I discussed this with the patient and she declined to take any other med for cholesterol. I told her she would need to follow-up with her physician and get a repeat lipid panel off her statin. Dr. Morales recommended that because the calcium heart score was elevated she maintain an LDL cholesterol below 100. Patient had a stress test recently which was unremarkable. On 10/08/2024, patient was seen and examined: On examination she appeared in good health and spirits, she does not appear to be in any distress. Vital signs as documented. Skin warm and dry and without overt rashes. Neck without JVD, thyroid appears normal, trachea is midline, neck is supple. Lungs clear, normal air movement was noted. Heart exam notable for regular rhythm, normal sounds and absence of murmurs, rubs or gallops. Abdomen unremarkable and without evidence of organomegaly, masses, or abdominal aortic enlargement, bowel sounds are present in all 4 quadrants, no abdominal tenderness was noted. Extremities nonedematous, no cyanosis was noted, no clubbing was noted. Neuro: Cranial nerves II through XII are grossly intact, no focal motor deficits were noted, sensation to light touch and pinprick is intact, motor exam 5/5 throughout. Psych: Patient is alert and oriented x3, she does not appear anxious or depressed, she does not appear agitated. Patient was discharged home in stable condition on 10/08/2024 Weight / BMI Weight Weight: 89.7 kg Body Mass Index (BMI) 30.0 ABG / Lab / M (more content not included)...[facility]07-08-2025 Progress note Author Bayron Leal [facility] Note Date/Time October 07, 2024 4:41p m [facility] Medical Records Department [address] [place] [address] Progress Note - Hospitalist 10/07/24 1633 MR#: [id number] Acct: [id number] Name: TAMARA JOSE Rep #:[id number] : 1970 54 From: Bayron Leal DO PCP: Blanquita Lim, Bishnu, EMPLOYMENT OFFICE CLERK-C Statu s:ADM IN [place] [facility] [place] [id number] Reason for Visit Reason for Visit: Diagnoses Urinary tract infection, site not specified (10/06/24) Abnormal levels of other serum enzymes (10/06/24) Other specified abnormal findings of blood chemistry (10/06/24) Subjective Subjective Patient was seen and examined today, she does not complain of any abdominal discomfort. CPK and LDH was lower today. I am not sure what is causing the patient's liver enzyme elevation, the CPK elevation may be caused by statin thatshe was taking for hyperlipidemia. Patient states she does not want to take anything for cholesterol, she has a past history of coronary artery disease according to the medical record, I will have to talk with her tomorrow about perhaps taking Zetia in place of a statin. Patient has no urinary symptoms, shedoes not want to take Rocephin for her abnormal UA, I have elected to stop antibiotics at this time and observe her. Objective Data Objective Data Vital Signs: Vital Signs Temp Pulse Resp BP Pulse Ox O2 Del Method 98.1 F 90 17 121/76 H 97 Room Air 10/07/24 16:00 10/07/24 16:00 10/07/24 16:00 10/07/24 16:00 10/07/24 16:00 10/07/24 16:00 Oxygen Delivery Method Room Air Weight: 89.7 kg Body Mass Index (BMI) 30.0 Intake & Output: Intake and Output for Last 24 Hours 10/05/24 10/06/24 10/07/24 23:59 23:59 23:59 Intake Total 2500 / 2500 3960 / 3960 Balance 2500 / 2500 3960 / 3960 Lab / Micro Data 10/07/24 05:34 10/07/24 05:34 Labs: Laboratory Results - last 24 hr 10/07/24 05:34: WBC 5.7, RBC 3.83 L, Hgb 12.0, Hct 36.3 L, MCV 94.8, MCH 31.3, MCHC 33.1, RDW Std Deviation 52.6 H, RDW Coeff of Micheal 15.2 H, Plt Count 222, MPV11.9, Immature Gran % (Auto) 0.400, Neut % (Auto) 64.4, Lymph % (Auto) 12.4 L, [place] % (Auto) 6.9, Eos % (Auto) 15.2 H, Baso % (Auto) 0.7, Absolute Neuts (auto)3.7, Absolute Lymphs (auto) 0.70 L, Nucleated RBC % 0, PT 15.7 H, INR 1.2, Sodium 139, Potassium 3.3, Chloride 108, Carbon Dioxide 23.0, Anion Gap 8, BUN 6, Creatinine 0.45 L, Estim Creat Clear Calc 165.51, Est GFR (MDRD) Non-Af 114, BUN/Creatinine Ratio 13.1, Glucose 102 H, Calcium 8.0, Total Bilirubin 0.50, CAU277 H, ALT 283 H, Alkaline Phosphatase 46, Lactate Dehydrogenase 963 H, Total Creatine Kinase 3084 H, Total Protein 4.9 L, Albumin 2.8 L, Globulin 2.1 L, Albumin/Globulin Ratio 1.3, TSH 7.560 H Micro: Microbiology 10/06/24 09:55 Urine, Clean Catch Urine Culture - Preliminary GNR lactose oil field caser 10/06/24 09:55 Mucosa - Nose SARS-CoV-2, Influenza & RSV (PCR) - Final Physical Exam Const alert, oriented x3, no apparent distress and healthy appearing General Appearance: cooperative, well kempt and well developed Orientation / Consciousness: awake, oriented to person, oriented to place and oriented to time HEENT normocephalic, head/scalp atraumatic and moist oral mucous membranes Eyes PERRL, EOMs intact bilaterally and conjunctivae normal Neck supple, no JVD, thyroid normal and no carotid bruits General: trachea midline Resp normal respiratory effort, no retractions, no use of accessory muscles and clearto auscultation bilaterally Auscultation: Negative for rales, rhonchi or wheezes Cardio regular rate, regular rhythm, S1 normal heart sound, S2 normal heart sound, no murmurs, no rub and no gallops GI normal to inspection, nondistended, normoactive bowel sounds, soft to palpation,non-tender and non-distended Extremity no clubbing, cyanosis or edema Skin no rashes or lesions noted General Skin Exam: no breakdown Neuro oriented x3, CN's II-XII intact bilaterally, no focal motor deficits and no sensory deficits noted Sensorium / Orientation: awake and alert Speech: speech normal Psych affect normal Assessment & Plan Assessment/Plan (1) Elevated CPK: PLAN: Plan 1. Rhabdomyolysis-secondary to statin use, lab will be rechecked tomorrow, patient's creatinine remains normal #2 elevated liver function tests-etiology unclear, these appear to be trending downward at this time, patient had a CT of the abdomen as well as an ultrasound,ultrasound did not show the presence of gallstones, I do not think this was causing the elevated liver enzymes. #3 coronary artery disease-again patient will need to take something for her elevated cholesterol, her last LDL cholesterol was 75 while she was taking simvastatin but she was on a small dose. I will discuss placing her on Zetia tomorrow #4 essential hypertension-patient will remain on her present medications for blood pressure, I have elected to cut the dose of her lisinopril and amlodipine due to her normal blood pressure today, I will see if this controls her blood pressure. #5 GERD-patient is on a PPI Total clinical time spent by myself addressing the patient's medical issues, reviewing all of her data, and collaborating with the patient's care team: 35 minutes Charges/Coding Visit Charges Inpatient E&M: 71227 Subs Hosp L2 10/07/24 1641 <Electronically signed by Bayron Leal DO> Cosigner Signature (if applicable): CC: ~ Signed [facility] Work Phone: [phone]) 567-384107-08-2025 Progress note [facility] Medical Records Department [address] [place] [address] Progress Note - Hospitalist 10/07/24 1633 MR#: [id number] Acct: [id number] Name: TAMARA JOSE Rep #:[id number] : 1970 54 From: Bayron Leal DO PCP: ALEXA Bob, EMPLOYMENT OFFICE CLERK-C Statu s:[place]M [place] [facility] [id number] Reason for Visit Reason for Visit: Diagnoses Urinary tract infection, site not specified (10/06/24) Abnormal levels of other serum enzymes (10/06/24) Other specified abnormal findings of blood chemistry (10/06/24) Subjective Subjective Patient was seen and examined today, she does not complain of any abdominal discomfort. CPK and LDHwas lower today. I am not sure what is causing the patient's liver enzyme elevation, the CPK elevation may be caused by statin thatshe was taking for hyperlipidemia. Patient states she does not want to take anything for cholesterol, she has a past history of coronary artery disease according to themedical record, I will have to talk with her tomorrow about perhaps taking Zetia in place of a statin. Patient has no urinary symptoms, shedoes not want to take Rocephin for her abnormal UA, I have elected to stop antibiotics at this time and observe her. Objective Data Objective Data Vital Signs: Vital Signs Temp Pulse Resp BP Pulse Ox O2 Del Method 98.1 F 90 17 121/76 H 97 Room Air 10/07/24 16:00 10/07/24 16:00 10/07/24 16:00 10/07/24 16:00 10/07/24 16:00 10/07/24 16:00 Oxygen Delivery Method Room Air Weight: 89.7 kg Body Mass Index (BMI) 30.0 Intake & Output: Intake and Output for Last 24 Hours 10/05/24 10/06/24 10/07/24 23:59 23:59 23:59 Intake Total 2500 / 2500 3960 / 3960 Balance 2500 / 2500 3960 / 3960 Lab / Micro Data 10/07/24 05:34 10/07/24 05:34 Labs: Laboratory Results - last 24 hr 10/07/24 05:34: WBC 5.7, RBC 3.83 L, Hgb 12.0, Hct 36.3 L, MCV 94.8, MCH 31.3, MCHC 33.1, RDW Std Deviation 52.6 H, RDW Coeff of Micheal 15.2 H, Plt Count 222, MPV11.9, Immature Gran % (Auto) 0.400, Neut% (Auto) 64.4, Lymph % (Auto) 12.4 L, [place] % (Auto) 6.9, Eos % (Auto) 15.2 H, Baso % (Auto) 0.7, Absolute Neuts (auto)3.7, Absolute Lymphs (auto) 0.70 L, Nucleated RBC % 0, PT 15.7 H, INR 1.2, [id number], Potassium 3.3, Chloride 108, Carbon Dioxide 23.0, Anion Gap 8, BUN 6, Creatinine 0.45 L, EstimCreat Clear Calc 165.51, Est GFR (MDRD) Non-Af 114, BUN/Creatinine Ratio 13.1, Glucose 102 H, Calcium 8.0, Total Bilirubin 0.50, [id number] H, ALT 283 H, Alkaline Phosphatase 46, Lactate Dehydrogenase 963 H, Total Creatine Kinase 3084 H, Total Protein 4.9 L, Albumin 2.8 L, Globulin 2.1 L, Albumin/Globulin Ratio 1.3, TSH 7.560 H Micro: Microbiology 10/06/24 09:55 Urine, Clean Catch Urine Culture - Preliminary GNR lactose oil field caser 10/06/24 09:55 Mucosa - Nose SARS-CoV-2, Influenza & RSV (PCR) - Final Physical Exam Const alert, oriented x3, no apparent distress and healthy appearing General Appearance: cooperative, well kempt and well developed Orientation / Consciousness: awake, oriented to person, oriented to place and oriented to time HEENT normocephalic, head/scalp atraumatic and moist oral mucous membranes Eyes PERRL, EOMs intact bilaterally and conjunctivae normal Neck supple, no JVD, thyroid normal and no carotid bruits General: trachea midline Resp normal respiratory effort, no retractions, no use of accessory muscles and clearto auscultation bilaterally Auscultation: Negative for rales, rhonchi or wheezes Cardio regular rate, regular rhythm, S1 normal heart sound, S2 normal heart sound, no murmurs, no rub and no gallops GI normal to inspection, nondistended, normoactive bowel sounds, soft to palpation,non-tender and non-distended Extremity no clubbing, cyanosis or edema Skin no rashes or lesions noted General Skin Exam: no breakdown Neuro oriented x3, CN's II-XII intact bilaterally, no focal motor deficits and no sensory deficits noted Sensorium / Orientation: awake and alert Speech: speech normal Psych affect normal Assessment & Plan Assessment/Plan (1) Elevated CPK: PLAN: Plan 1. Rhabdomyolysis-secondary to statin use, lab will be rechecked tomorrow, patient's creatinine remains normal #2 elevated liver function tests-etiology unclear, these appear to be trending downward at this time, patient had a CT of the abdomen as well as an ultrasound,ultrasound did not show the presence of gallstones, I do not think this was causing the elevated liver enzymes. #3 coronary artery disease-again patient will need to take something for her elevated cholesterol, her last LDL cholesterol was 75 while she was taking simvastatin but she was on a small dose. I willdiscuss placing her on Zetia tomorrow #4 essential hypertension-patient will remain on her present medications for blood pressure, I haveelected to cut the dose of her lisinopril and amlodipine due to her normal blood pressure today, I will see if this controls her blood pressure. #5 GERD-patient is on a PPI Total clinical time spent by myself addressing the patient's medical issues, reviewing all of her data, and collaborating with the patient's care team: 35 minutes Charges/Coding Visit Charges Inpatient E&M: 91000 Subs Hosp L2 10/07/24 1641 Cosigner Signature (if applicable): CC: ~ Signed [facility]07-07-2025 Discharge summary Author Will Silveira [facility] Note Date/Time October 06, 2024 6:05p m [facility] Medical Records Department [address] [place] [address] Emergency Department Summary 10/06/24 MR#: [id number] Acct: [id number] Name: TAMARA JOSE Rep #:[id number] : 1970 54 From: Will easleyett DO PCP: ALEXA Bob, EMPLOYMENT OFFICE CLERK-C Statu s:REG ER Location: ED HPI History of Present Illness Chief Complaint: Abd Pain Narrative Narrative: Chief complaint and HPI: Abdominal pain and nausea. 54-year-old female with past medical history of reported 3 kidneys, HTN, GERD, HLD presents for evaluation of abdominal pain and nausea. Patient states for the past 2 weeks she has felt unwell. States it started with URI symptoms and a cough. States that this resolved and now she has had general abdominal pain, nausea, decreasedappetite, diarrhea. She states that her taste is different and that she often feels full. Patient states maybe it is my gallbladder. Denies any fever, chills, shortness of breath, chest pain, emesis, dysuria. Review of systems: See HPI Medications: As listed on the chart Allergies: As listed on the chart PFSH: Per chart Vital signs: As listed on the chart. Reviewed. Physical exam: Gen: A&O x3, NAD Head: Normocephalic, atraumatic Eyes: No sclera icterus, conjunctiva clear ENT: Moist mucous membranes Neck: Trachea midline, No JVD CV: RRR, no murmurs, no peripheral edema Resp: Lungs CTA BL, no w/r/c GI: Abd soft, non-distended, mildly tender to palpation diffusely, no r/r/g : No CVA tenderness Musc: Full ROM, no deformity Skin: Warm, dry Neuro: Alert, oriented, grossly intact, sensation intact Psych: Cooperative, appropriate mood and affect [facility] Medical History Hyperlipidemia Wears hearing aid Post-menopausal History of steroid therapy Gastric reflux Non-smoker History of edema History of stress test Hypertension History of broken leg Kidney anomaly, congenital (~09/10/23) History of kidney problems delivery delivered Home Medications ?Medication ?Instructions ?Recorded ?Last Taken ?Type cholecalciferol (vitamin D3) 50 100 mcg PO QDAY 10/10/23 History mcg (2,000 unit) capsule (Vitamin D3) lisinopril 40 mg tablet 40 mg PO QDAY 07/13/2310/10 History omeprazole 20 mg capsule,delayed 20 mg PO QDAY 4 10/11/23 History release vitamin E (dl, acetate) 180 mg 180 mg PO QDAY 07/13/23 10/10/23 History (400 unit) capsule aspirin 81 mg chewable tablet 1 tab PO DAILY 10/02/23 10/10/23 History (Nuvia Chewable Low Dose Aspirin) cranberry 500 mg capsule 500 mg PO DAILY 10/02/2301/23 History fluticasone propionate 50 2 spray intranasal DAILY Unknown History mcg/actuation nasal spray,suspension amlodipine 10 mg tablet 10 mg PO QDAY 05/23/24 Unkno wn History atorvastatin 10 mg tablet 10 mg PO QHS 10/06/24 Unknow n History cephalexin 500 mg capsule 500 mg PO Q12 #14 CAPSULES 0 10/06/24 Unknown Rx simvastatin 20 mg tablet 20 mg PO QHS 10/06/24 Unknow n History Allergy/AdvReac Type Severity Reaction Status Date / Time bee venom protein (honey bee) Allergy Severe Anaphylaxis Verified 10/06/24 09:11 Sulfa (Sulfonamide Allergy Severe Anaphylaxis Verified 10/06/24 09:11 Antibiotics) Family History Grandmother Breast cancer Father Heart disease Myocardial infarction Mother Pulmonary embolism Social History Smoking Status: Never smoker alcohol intake: never substance use type: does not use EXAM Physical Exam Const Vital Signs: 10/06/24 09:10 10/06/24 11:09 10/06/24 13:00 Temperature 98 F 98.7 F Temperature Source Oral Oral Pulse Rate 95 86 77 Respiratory Rate 16 16 Blood Pressure 115/78 124/86 H 125/80 H Blood Pressure Mean 90 98 95 Pulse Ox 97 96 Oxygen Delivery Method Room Air Room Air 10/06/24 15:00 Temperature Temperature Source Pulse Rate 64 Respiratory Rate 18 Blood Pressure 134/78 H Blood Pressure Mean 96 Pulse Ox 98 Oxygen Delivery Method Room Air MDM MDM MDM Narrative Medical decision making narrative: 54-year-old female with past medical history of reported 3 kidneys, HTN, GERD, HLD presents for evaluation of abdominal pain and nausea. Patient states 2 weeks ago she developed URI symptoms that resolved. Since then she has had generalized abdominal pain, nausea, decreased appetite, diarrhea. Also endorsestaste changes. See physical exam findings. On presentation, patient is no acute distress. Vitals are stable. Differential diagnosis includes but is not limited to viral illness, COVID-19 infection, electrolyte abnormality, dehydration, colitis, cholecystitis, pancreatitis. Zofran and NS bolus ordered. Patient states her pain is minimal and declined pain. Laboratory workup ordered including CT abdomen pelvis. CBC without leukocytosis or anemia. Platelets unremarkable. CMP without MANNY. Patient has transaminitis with an ASTof 458 and an ALT of 400. These have significantly increased from August 2024 on chart review. Direct bilirubin mildly elevated at 3.6. Alkaline phosphatase normal. Lipase unremarkable. UA positive for UTI. Urine cultures sent and Keflex prescribed. CT abdomen pelvis shows no acute process of the abdomen or pelvis. Patient does not have 3 kidneys. Gallbladder does have a large peripheral calcified stone but otherwise is unremarkable. On reevaluation, patient not endorsing any epigastric or right upper quadrant pain. Her abdominal exam is benign. However given the significant transaminitis will obtain ultrasound of the abdomen. Ultrasound of the abdomen shows multiple gallstones otherwise no unremarkable. Patient has fatty infiltration of the liver. No clear etiology for the patient's transaminitis at this time however patient is on atorvastatin which may be the cause of her transaminitis. Given her transaminitis, Dr. Mckeon was consulted with GI and patient was discussed. Concerned that her transaminitis may be secondary to statin and concern for possible rhabdomyolysis as the cause of her transaminitis. Recommended LDH and CPK. Patient had a delayed stay at emergency department secondary to labs taking a while to result. I did call the lab multiple times about the LDH and CPK. Patient was informed to wait. LDH elevated at 1314. CPK elevated at 5727. Patient is in rhabdomyolysis likely secondary to statin therapy. AnotherNS bolus ordered. Patient will warrant admission. She was updated on results and confirmed understanding of plan. I spoke with the hospitalist service who accepted admission. Impression: 1. Rhabdomyolysis likely secondary to statin therapy 2. Transaminitis secondary to #1 3. UTI Lab Data Labs: Laboratory Results - last 24 hr 10/06/24 10/06/24 09:35 09:55 WBC 6.4 RBC 4.46 Hgb 13.7 Hct 41.7 MCV 93.5 MCH 30.7 MCHC 32.9 RDW Std Deviation 52.3 H RDW Coeff of Micheal 15.0 H Plt Count 247 MPV 11.6 Immature Gran % (Auto) 0.200 Neut % (Auto) 75.3 H Lymph % (Auto) 7.6 L [place] % (Auto) 5.9 Eos % (Auto) 10.4 H Baso % (Auto) 0.6 Absolute Neuts (auto) 4.9 Absolute Lymphs (auto) 0.49 L Nucleated RBC % 0 Sodium 139 Potassium 3.6 Chloride 103 Carbon Dioxide 24.7 Anion Gap 11 BUN 8 Creatinine 0.51 L Estim Creat Clear Calc 146.05 Est GFR (MDRD) Non-Af 110 BUN/Creatinine Ratio 15.1 Glucose 110 H Calcium 8.9 Total Bilirubin 0.75 Direct Bilirubin 0.36 H AST 458 H ALT 404 H Alkaline Phosphatase 56 Lactate Dehydrogenase 1314 H Total Creatine Kinase 5727 H Total Protein 6.1 Albumin 3.5 Globulin 2.6 Lipase 28 Urine Color Olga Lidia Urine Clarity Sl. Cloudy Urine pH 6.0 Ur Specific [place] 1.020 Urine Protein 30 H Urine Glucose (UA) Normal Urine Ketones Negative Urine Occult Blood 150 H Urine Nitrite Positive H Urine Bilirubin Negative Urine Urobilinogen 1 H Ur Leukocyte Esterase 100 H Urine RBC 5-10 SEEN Urine WBC 10-25 SEEN Ur Squamous Epith Cells 5-10 SEEN Urine Bacteria 3+ Hyaline Casts 0-5 SEEN Urine Mucus 0 SEEN Radiography Diagnostic Testing: Clinical Impression(s) from Imaging Studies Abdomen/Pelvis CT 10/06/24 09:20 IMPRESSION: No CT evidence of acute process in the abdomen or pelvis. Reading Location: [facility] Abdomen Ultrasound 10/06/24 12:09 IMPRESSION: Multiple gallstones. Fatty infiltration of the liver. Reading Location: [facility] Discharge Plan Triage Chief Complaint: Abd Pain ED Provider: Will Silveira Dx/Rx/DC Orders Clinical Impression: UTI (urinary tract infection) Instructions: ED UTIs Women Prescriptions: New cephalexin 500 mg capsule 500 mg PO Q12 Qty: 14 0RF No Action lisinopril 40 mg tablet 40 mg PO QDAY omeprazole 20 mg capsule,delayed release(DR/EC) 20 mg PO QDAY cholecalciferol (vitamin D3) [Vitamin D3] 50 mcg (2,000 unit) capsule 100 mcg PO QDAY vitamin E (dl, acetate) 180 mg (400 unit) capsule 180 mg PO QDAY fluticasone propionate 50 mcg/actuation spray,suspension 2 spray intranasal DAILY amlodipine 10 mg tablet 10 mg PO QDAY cranberry 500 mg capsule 500 mg PO DAILY Rx Instructions: administer with a meal aspirin [Nuvia Chewable Aspirin] 81 mg tablet,chewable 1 tab PO DAILY atorvastatin 10 mg tablet 10 mg PO QHS simvastatin 20 mg tablet 20 mg PO QHS Primary Care Provider: Blanquita Lim Referrals: Blanquita Lim, EMPLOYMENT OFFICE CLERK-C [Primary Care Provider] - 3-5 Days Print Language: Iranian Disposition Disposition: Home, Self Care What to do if you have Problems For any increased pain, shortness of breath, bleeding, nausea or vomiting, chestpain, or any unexpected problems, contact your Primary Care Provider. Call [facility] ([phone]) or report to the closest Emergency Room. Call 911 if necessary. 10/06/24 1805 <Electronically signed by Will Silveira DO> Cosigner Signature (if applicable): CC: ALEXA EMPLOYMENT OFFICE CLERK-C Blanquita Lim ~ Signed [facility] Work Phone: [phone] History and physical note Author Estrella Gross [facility] Note Date/Time October 06, 2024 5:48p m [facility] Medical Records Department [address] [place] [address] H&P Exam - Hospitalist 10/06/24 1727 MR#: [id number] Acct: [id number] Name: TAMARA JOSE Rep #:[id number] : 1970 54 From: Estrella Gross MD PCP: ALEXA Bob, EMPLOYMENT OFFICE CLERK-C Statu s:REG ER Location: ED HPI - General General Date of Admission: 10/06/24 Date of Service: 10/06/24 Chief Complaint: Weakness, fatigue, aching muscles HPI Narrative TAMARA JOSE, is a 54-year-old female history of GERD, hypertension, hyperlipidemia who presented to [facility] ED 10/06/2024 with abdominal pain and nausea. She has felt unwell for 2 weeks and notes that started with URI symptoms and a cough but that has now resolved and she has beenhaving general abdominal pain, nausea, decreased appetite and diarrhea and also feels her taste is different than usual and she has early satiety. No fevers orchills, shortness of breath, chest pain, emesis, dysuria. In the ED temp 98, heart rate 95 blood pressure 115/78, respiratory rate 16 and pulse ox 97% on room air. CBC with white blood cell count 6.4 and hemoglobin 13.7. BMP with normal kidney function and no electrolyte abnormalities. Lipase of 28. LFTs did reveal a total bili of 0.75 with a direct bili of 0.36, AST 458 and ALT of 404 with normal alk phos. UA with nitrate, leuk esterase, blood cells and 3+ bacteria. COVID and flu negative. CTA of the abdomen and pelvis with no acute process and abdominal ultrasound with multiple gallstones and fatty infiltrationof the liver but normal common bile duct, no thickening gallbladder wall, and liver is not enlarged. CK noted to be 5700, LDH 1300. Given abnormal labs and persistent symptoms hospitalist contacted for admission. Patient evaluated at bedside. She reports that for the past 2 to 3 weeks she has had significant fatigue and weakness and muscle aches. She has had some intermittent abdominal pain as well the worst of which was on Sunday and is felt nauseated particularlywith eating, had diarrhea as well though this is slowly becoming more formed. Does note that she had a sinus infection several weeks ago and finished Augmentin and azithromycin but has not been on these for couple of weeks. Denies fevers but reports she does get some chilled feeling. No present chest pain or shortness of breath, has some chronic swelling in right lower extremity after she broke it. Denies any changes in urination. Reports she has been lightheaded twice over the past couple of weeks as well but none today, at present actually feeling little bit better [facility] Medical History Hyperlipidemia Wears hearing aid Post-menopausal History of steroid therapy Gastric reflux Non-smoker History of edema History of stress test Hypertension History of broken leg Kidney anomaly, congenital (~09/10/23) History of kidney problems delivery delivered Home Medications ?Medication ?Instructions ?Recorded ?Last Taken ?Type cholecalciferol (vitamin D3) 50 100 mcg PO QDAY 10/10/23 History mcg (2,000 unit) capsule (Vitamin D3) lisinopril 40 mg tablet 40 mg PO QDAY 07/13/2310/10 History omeprazole 20 mg capsule,delayed 20 mg PO QDAY 4 10/11/23 History release vitamin E (dl, acetate) 180 mg 180 mg PO QDAY 04/12/24 07/10/24 History (400 unit) capsule aspirin 81 mg chewable tablet 1 tab PO DAILY 10/02/23 10/10/23 History (Nuvia Chewable Low Dose Aspirin) cranberry 500 mg capsule 500 mg PO DAILY 10/02/2301/23 History fluticasone propionate 50 2 spray intranasal DAILY Unknown History mcg/actuation nasal spray,suspension amlodipine 10 mg tablet 10 mg PO QDAY 05/23/24 Unkno wn History atorvastatin 10 mg tablet 10 mg PO QHS 10/06/24 Unknow n History cephalexin 500 mg capsule 500 mg PO Q12 #14 CAPSULES 0 10/06/24 Unknown Rx simvastatin 20 mg tablet 20 mg PO QHS 10/06/24 Unknow n History Allergy/AdvReac Type Severity Reaction Status Date / Time bee venom protein (honey bee) Allergy Severe Anaphylaxis Verified 10/06/24 09:11 Sulfa (Sulfonamide Allergy Severe Anaphylaxis Verified 10/06/24 09:11 Antibiotics) Family History Grandmother Breast cancer Father Heart disease Myocardial infarction Mother Pulmonary embolism Social History Smoking Status: Never smoker alcohol intake: never substance use type: does not use ROS ROS Narrative General: Sometimes will feel hot and cold but no overt fever HENT: Denies headache, did have sinus infection with the symptoms improved EYES: Denies changes in vision Resp: Denies cough, denies shortness of breath Cardiac: Denies chest pain GI: Has had some intermittent general abdominal pain, and it is worse on Sunday and nausea especially with eating resulting in poor p.o. intake, had been having diarrhea though this is slowly becoming more formed : Denies changes in urination Extremity: Some chronic right lower extremity swelling MSK: Generalized weakness, fatigue, muscle cramps and aching Neuro: Denies any numbness/tingling Heme: Denies any bleeding or bruising Skin: Denies rashes Psychiatric: No complaints voiced Vital Signs Vital Signs Vital Signs: 10/06/24 09:10 10/06/24 11:09 10/06/24 13:00 Temperature 98 F 98.7 F Temperature Source Oral Oral Pulse Rate 95 86 77 Respiratory Rate 16 16 Blood Pressure 115/78 124/86 H 125/80 H Blood Pressure Mean 90 98 95 Pulse Ox 97 96 Oxygen Delivery Method Room Air Room Air 10/06/24 15:00 10/06/24 16:33 10/06/24 16:57 Temperature 98.2 F 98.1 F Temperature Source Oral Pulse Rate 64 81 78 Respiratory Rate 18 17 15 Blood Pressure 134/78 H 117/76 112/74 Blood Pressure Mean 96 89 86 Pulse Ox 98 96 99 Oxygen Delivery Method Room Air Room Air Weight Weight: 89.721 kg Body Mass Index (BMI) 30.0 Physical Exam Narrative General: Alert, oriented, no apparent distress HEENT: Atraumatic, normocephalic Eyes: Anicteric, normal conjunctiva, extraocular movements grossly intact Neck: Supple Respiratory: Clear to auscultation bilaterally, normal respiratory effort Cardiovascular: Regular rate and rhythm GI: Soft, nontender, nondistended Extremities: Some edema in right lower extremity which she reports is chronic Musculoskeletal: Moving all extremities Neuro: No overt focal neurological deficits Skin: Some bilateral lower extremity chronic skin changes Psych: Cooperative Results Lab / Micro Data 10/06/24 09:35 10/06/24 09:35 Labs: Laboratory Results - last 24 hr 10/06/24 09:35: WBC 6.4, RBC 4.46, Hgb 13.7, Hct 41.7, MCV 93.5, MCH 30.7, MCHC 32.9, RDW Std Deviation 52.3 H, RDW Coeff of Micheal 15.0 H, Plt Count 247, MPV 11.6, Immature Gran % (Auto) 0.200, Neut % (Auto) 75.3 H, Lymph % (Auto) 7.6 L, [place] % (Auto) 5.9, Eos % (Auto) 10.4 H, Baso % (Auto) 0.6, Absolute Neuts (auto)4.9, Absolute Lymphs (auto) 0.49 L, Nucleated RBC % 0, Sodium 139, Potassium 3.6, Chloride 103, Carbon Dioxide 24.7, Anion Gap 11, BUN 8, Creatinine 0.51 L, Estim Creat Clear Calc 146.05, Est GFR (MDRD) Non-Af 110, BUN/Creatinine Ratio 15.1, Glucose 110 H, Calcium 8.9, Total Bilirubin 0.75, Direct Bilirubin 0.36 H,AST 458 H, ALT 404 H, Alkaline Phosphatase 56, Lactate Dehydrogenase 1314 H, Total Creatine Kinase 5727 H, Total Protein 6.1, Albumin 3.5, Globulin 2.6, Lipase 28 10/06/24 09:55: Urine Color Olga Lidia, Urine Clarity Sl. Cloudy, Urine pH 6.0, Ur Specific [place] 1.020, Urine Protein 30 H, Urine Glucose (UA) Normal, Urine Ketones Negative, Urine Occult Blood 150 H, Urine Nitrite Positive H, Urine Bilirubin Negative, Urine Urobilinogen 1 H, Ur Leukocyte Esterase 100 H, Urine RBC 5-10 SEEN, Urine WBC 10-25 SEEN, Ur Squamous Epith Cells 5-10 SEEN, Urine Bacteria 3+, Hyaline Casts 0-5 SEEN, Urine Mucus 0 SEEN Micro: Microbiology 10/06/24 09:55 Mucosa - Nose SARS-CoV-2, Influenza & RSV (PCR) - Final Imaging Radiology Impression Abdomen/Pelvis CT 10/06/24 09:20 IMPRESSION: No CT evidence of acute process in the abdomen or pelvis. Reading Location: [facility] Abdomen Ultrasound 10/06/24 12:09 IMPRESSION: Multiple gallstones. Fatty infiltration of the liver. Reading Location: [facility] Assessment & Plan Assessment/Plan (1) UTI (urinary tract infection): (2) Elevated LFTs: (3) Elevated CPK: PLAN: Plan # Abdominal pain/nausea/diarrhea -CT abdomen no acute process -Does have elevated LFTs but imaging only reveals fatty infiltration of liver with no acute process -COVID-negative - Given stool is beginning to firm and is not necessarily diarrhea anymore we will hold off on any stool studies -Will check hepatitis panel -Will treat UTI as this could be a cause or contributor of symptoms -IV fluids -Supportive care -TSH - Transitional diet # Elevated CPK and LDH - Concern for rhabdo potentially due to statin, was on atorvastatin and seems tonow be on simvastatin, both are listed on med list but will need to clarify whatshe is taking, has not filled atorvastatin for months, did recently fill the simvastatin however - CK was 5700 with an elevated LDH and elevated liver function tests - IV fluids - Trend CPK and LDH - Trend liver function # Elevated liver function tests -AST of 458 and ALT of 404 - Mild elevation of direct bili 0.36 but total bili within normal limits and alkphos not elevated -Will check hepatitis panel -Repeat in a.m. -Imaging has been fairly benign -Possibly secondary to the above, trend CK and liver function # Abnormal UA with concern for UTI -UA with blood, nitrite, leuk esterase, white blood cells and bacteria -Empiric antibiotics while awaiting culture and sensitivity data #GERD -Continue PPI #Hypertension - BP only 112/74, holding home antihypertensives, add back as tolerated # Hyperlipidemia - Holding home statin #DVT ppx: Lovenox subcu Estrella Gross MD Charges/Coding Visit Charges Inpatient E&M: 57768 Init Hosp L2 10/06/24 1748 <Electronically signed by Estrella Gross MD> Cosigner Signature (if applicable): CC: [employer] OFFICE CLERK-C Blanquita Lim; Dr. Estrella Gross MD~ Signed [facility] Work Phone: 1(820) 554-474207-07-2025 Evaluation note* Diagnosis Onset Date Resolution Status Admit Date Elevated CPK acute October 06 5:28pm Elevated LFTs acute October 06, 025 5:28pm UTI (urinary tract infection) acute October 06, 2024 5:28pm [facility] Work Phone: [phone]) 825-154907-07-2025 Discharge summary [facility] Medical Records Department [address] [place] [address] Emergency Department Summary 10/06/24 MR#: [id number] Acct: [id number] Name: TAMARA JOSE Rep #:[id number] : 1970 54 From: Will carrasquillo DO PCP: ALEXA Bob, EMPLOYMENT OFFICE CLERK-C Statu s:REG ER Location: ED HPI History of Present Illness Chief Complaint: Abd Pain Narrative Narrative: Chief complaint and HPI: Abdominal pain and nausea. 54-year-old female with past medical history ofreported 3 kidneys, HTN, GERD, HLD presents for evaluation of abdominal pain and nausea. Patient states for the past 2 weeks she has felt unwell. States it started with URI symptoms and a cough. States that this resolved and now she has had general abdominal pain, nausea, decreasedappetite, diarrhea. She states that her taste is different and that she often feels full. Patient states maybe it ismy gallbladder. Denies any fever, chills, shortness of breath, chest pain, emesis, dysuria. Review of systems: See HPI Medications: As listed on the chart Allergies: As listed on the chart PFSH: Per chart Vital signs: As listed on the chart. Reviewed. Physical exam: Gen: A&O x3, NAD Head: Normocephalic, atraumatic Eyes: No sclera icterus, conjunctiva clear ENT: Moist mucous membranes Neck: Trachea midline, No JVD CV: RRR, no murmurs, no peripheral edema Resp: Lungs CTA BL, no w/r/c GI: Abd soft, non-distended, mildly tender to palpation diffusely, no r/r/g : No CVA tenderness Musc: Full ROM, no deformity Skin: Warm, dry Neuro: Alert, oriented, grossly intact, sensation intact Psych: Cooperative, appropriate mood and affect [facility] Medical History Hyperlipidemia Wears hearing aid Post-menopausal History of steroid therapy Gastric reflux Non-smoker History of edema History of stress test Hypertension History of broken leg Kidney anomaly, congenital (~09/10/23) History of kidney problems delivery delivered Home Medications ?Medication ?Instructions ?Recorded ?Last Taken ?Type cholecalciferol (vitamin D3) 50 100 mcg PO QDAY 10/10/23 History mcg (2,000 unit) capsule (Vitamin D3) lisinopril 40 mg tablet 40 mg PO QDAY 07/13/2310/10 History omeprazole 20 mg capsule,delayed 20 mg PO QDAY 4 10/11/23 History release vitamin E (dl, acetate) 180 mg 180 mg PO QDAY 07/13/23 10/10/23 History (400 unit) capsule aspirin 81 mg chewable tablet 1 tab PO DAILY 10/02/23 10/10/23 History (Nuvia Chewable Low Dose Aspirin) cranberry 500 mg capsule 500 mg PO DAILY 10/02/2301/23 History fluticasone propionate 50 2 spray intranasal DAILY Unknown History mcg/actuation nasal spray,suspension amlodipine 10 mg tablet 10 mg PO QDAY 05/23/24 Unkno wn History atorvastatin 10 mg tablet 10 mg PO QHS 10/06/24 Unknow n History cephalexin 500 mg capsule 500 mg PO Q12 #14 CAPSULES 0 10/06/24 Unknown Rx simvastatin 20 mg tablet 20 mg PO QHS 10/06/24 Unknow n History Allergy/AdvReac Type Severity Reaction Status Date / Time bee venom protein (honey bee) Allergy Severe Anaphylaxis Verified 10/06/24 09:11 Sulfa (Sulfonamide Allergy Severe Anaphylaxis Verified 10/06/24 09:11 Antibiotics) Family History Grandmother Breast cancer Father Heart disease Myocardial infarction Mother Pulmonary embolism Social History Smoking Status: Never smoker alcohol intake: never substance use type: does not use EXAM Physical Exam Const Vital Signs: 10/06/24 09:10 10/06/24 11:09 10/06/24 13:00 Temperature 98 F 98.7 F Temperature Source Oral Oral Pulse Rate 95 86 77 Respiratory Rate 16 16 Blood Pressure 115/78 124/86 H 125/80 H Blood Pressure Mean 90 98 95 Pulse Ox 97 96 Oxygen Delivery Method Room Air Room Air 10/06/24 15:00 Temperature Temperature Source Pulse Rate 64 Respiratory Rate 18 Blood Pressure 134/78 H Blood Pressure Mean 96 Pulse Ox 98 Oxygen Delivery Method Room Air MDM MDM MDM Narrative Medical decision making narrative: 54-year-old female with past medical history of reported 3 kidneys, HTN, GERD, HLD presents for evaluation of abdominal pain and nausea. Patient states 2 weeks ago she developed URI symptoms that resolved. Since then she has had generalized abdominal pain, nausea, decreased appetite, diarrhea. Alsoendorsestaste changes. See physical exam findings. On presentation, patient is no acute distress. Vi tals are stable. Differential diagnosis includes but is not limited to viral illness, COVID-19 infection, electrolyte abnormality, dehydration, colitis, cholecystitis, pancreatitis. Zofran and NS bolus ordered. Patient states her pain is minimal and declined pain. Laboratory workup ordered including CT abdomen pelvis. CBC without leukocytosis or anemia. Platelets unremarkable. CMP without MANNY. Patient has transaminitis with an ASTof 458 and an ALT of 400. These have significantly increased fromAugust 2024 on chart review. Direct bilirubin mildly elevated at 3.6. Alkaline phosphatase normal. Lipase unremarkable. UA positive for UTI. Urine cultures sent and Keflex prescribed. CT abdomen pelvisshows no acute process of the abdomen or pelvis. Patient does not have 3 kidneys. Gallbladder does have a large peripheral calcified stone but otherwise is unremarkable. On reevaluation, patient not endorsing any epigastric or right upper quadrant pain. Her abdominal exam is benign. However given the significant transaminitis will obtain ultrasound of the abdomen. Ultrasound of the abdomen shows multiple gallstones otherwise no unremarkable. Patient has fatty infiltration of the liver. No clearetiology for the patient's transaminitis at this time however patient is on atorvastatin which may be the cause of her transaminitis. Given her transaminitis, Dr. Mckeon was consulted with GI and patient was discussed. Concerned that her transaminitis may be secondary to statin and concern for possible rhabdomyolysis as the cause of her transaminitis. Recommended LDH and CPK. Patient had a delayed stay at emergency department secondary to labs taking a while to result. I did call the lab multiple times about the LDH and CPK. Patient was informed to wait. LDH elevated at 1314. CPK elevated at 5727. Patient is in rhabdomyolysis likely secondary to statin therapy. AnotherNS bolus ordered. Patient will warrant admission. She was updated on results and confirmed understanding of plan. I spoke with the hospitalist service who accepted admission. Impression: 1. Rhabdomyolysis likely secondary to statin therapy 2. Transaminitis secondary to #1 3. UTI Lab Data Labs: Laboratory Results - last 24 hr 10/06/24 10/06/24 09:35 09:55 WBC 6.4 RBC 4.46 Hgb 13.7 Hct 41.7 MCV 93.5 MCH 30.7 MCHC 32.9 RDW Std Deviation 52.3 H RDW Coeff of Micheal 15.0 H Plt Count 247 MPV 11.6 Immature Gran % (Auto) 0.200 Neut % (Auto) 75.3 H Lymph % (Auto) 7.6 L [place] % (Auto) 5.9 Eos % (Auto) 10.4 H Baso % (Auto) 0.6 Absolute Neuts (auto) 4.9 Absolute Lymphs (auto) 0.49 L Nucleated RBC % 0 Sodium 139 Potassium 3.6 Chloride 103 Carbon Dioxide 24.7 Anion Gap 11 BUN 8 Creatinine 0.51 L Estim Creat Clear Calc 146.05 Est GFR (MDRD) Non-Af 110 BUN/Creatinine Ratio 15.1 Glucose 110 H Calcium 8.9 Total Bilirubin 0.75 Direct Bilirubin 0.36 H AST 458 H ALT 404 H Alkaline Phosphatase 56 Lactate Dehydrogenase 1314 H Total Creatine Kinase 5727 H Total Protein 6.1 Albumin 3.5 Globulin 2.6 Lipase 28 Urine Color Olga Lidia Urine Clarity Sl. Cloudy Urine pH 6.0 Ur Specific [place] 1.020 Urine Protein 30 H Urine Glucose (UA) Normal Urine Ketones Negative Urine Occult Blood 150 H Urine Nitrite Positive H Urine Bilirubin Negative Urine Urobilinogen 1 H Ur Leukocyte Esterase 100 H Urine RBC 5-10 SEEN Urine WBC 10-25 SEEN Ur Squamous Epith Cells 5-10 SEEN Urine Bacteria 3+ Hyaline Casts 0-5 SEEN Urine Mucus 0 SEEN Radiography Diagnostic Testing: Clinical Impression(s) from Imaging Studies Abdomen/Pelvis CT 10/06/24 09:20 IMPRESSION: No CT evidence of acute process in the abdomen or pelvis. Reading Location: [facility] Abdomen Ultrasound 10/06/24 12:09 IMPRESSION: Multiple gallstones. Fatty infiltration of the liver. Reading Location: [facility]- Discharge Plan Triage Chief Complaint: Abd Pain ED Provider: Will Silveira Dx/Rx/DC Orders Clinical Impression: UTI (urinary tract infection) Instructions: ED UTIs Women Prescriptions: New cephalexin 500 mg capsule 500 mg PO Q12 Qty: 14 0RF No Action lisinopril 40 mg tablet 40 mg PO QDAY omeprazole 20 mg capsule,delayed release(DR/EC) 20 mg PO QDAY cholecalciferol (vitamin D3) [Vitamin D3] 50 mcg (2,000 unit) capsule 100 mcg PO QDAY vitamin E (dl, acetate) 180 mg (400 unit) capsule 180 mg PO QDAY fluticasone propionate 50 mcg/actuation spray,suspension 2 spray intranasal DAILY amlodipine 10 mg tablet 10 mg PO QDAY cranberry 500 mg capsule 500 mg PO DAILY Rx Instructions: administer with a meal aspirin [Nuvia Chewable Aspirin] 81 mg tablet,chewable 1 tab PO DAILY atorvastatin 10 mg tablet 10 mg PO QHS simvastatin 20 mg tablet 20 mg PO QHS Primary Care Provider: Blanquita Lim Referrals: Blanquita Lim, EMPLOYMENT OFFICE CLERK-C [Primary Care Provider] - 3-5 Days Print Language: Iranian Disposition Disposition: Home, Self Care What to do if you have Problems For any increased pain, shortness of breath, bleeding, nausea or vomiting, chestpain, or any unexpected problems, contact your Primary Care Provider. Call [facility] ([phone]) or report tothe closest Emergency Room. Call 911 if necessary. 10/06/24 1805 Cosigner Signature (if applicable): CC: [employer] EMPLOYMENT OFFICE CLERKJasvir Lim ~ Signed [facility]07-07-2025 History and physical note [facility] Medical Records Department [address] [place] [address] H&P Exam - Hospitalist 10/06/24 1727 MR#: [id number] Acct: [id number] Name: TAMARA JOSE Rep #:[id number] : 1970 54 From: Estrella Gross MD PCP: ALEXA Bob, EMPLOYMENT OFFICE CLERK-Bishnu Statu s:REG ER Location: ED HPI - General General Date of Admission: 10/06/24 Date of Service: 10/06/24 Chief Complaint: Weakness, fatigue, aching muscles HPI Narrative TAMARA JOSE, is a 54-year-old female history of GERD, hypertension, hyperlipidemia who presented to [facility] ED 10/06/2024 with abdominal pain and nausea. She has felt unwell for2 weeks and notes that started with URI symptoms and a cough but that has now resolved and she has beenhaving general abdominal pain, nausea, decreased appetite and diarrhea and also feels her taste is different than usual and she has early satiety. No fevers orchills, shortness of breath, chest pain, emesis, dysuria. In the ED temp 98, heart rate 95 blood pressure 115/78, respiratory rate 16 andpulse ox 97% on room air. CBC with white blood cell count 6.4 and hemoglobin 13.7. BMP with normal kidney function and no electrolyte abnormalities. Lipase of 28. LFTs did reveal a total bili of 0.75with a direct bili of 0.36, AST 458 and ALT of 404 with normal alk phos. UA with nitrate, leuk esterase, blood cells and 3+ bacteria. COVID and flu negative. CTA of the abdomen and pelvis with no acute process and abdominal ultrasound with multiple gallstones and fatty infiltrationof the liver but n ormal common bile duct, no thickening gallbladder wall, and liver is not enlarged. CK noted to be 5700, LDH 1300. Given abnormal labs and persistent symptoms hospitalist contacted for admission. Patient evaluated at bedside. She reports that for the past 2 to 3 weeks she has had significant fatigueand weakness and muscle aches. She has had some intermittent abdominal pain as well the worst of which was on Sunday and is felt nauseated particularlywith eating, had diarrhea as well though this isslowly becoming more formed. Does note that she had a sinus infection several weeks ago and finished Augmentin and azithromycin but has not been on these for couple of weeks. Denies fevers but reports she does get some chilled feeling. No present chest pain or shortness of breath, has some chronic swelling in right lower extremity after she broke it. Denies any changes in urination. Reports she has been lightheaded twice over the past couple of weeks as well but none today, at present actually feeling little bit better [facility] Medical History Hyperlipidemia Wears hearing aid Post-menopausal History of steroid therapy Gastric reflux Non-smoker History of edema History of stress test Hypertension History of broken leg Kidney anomaly, congenital (~09/10/23) History of kidney problems delivery delivered Home Medications ?Medication ?Instructions ?Recorded ?Last Taken ?Type cholecalciferol (vitamin D3) 50 100 mcg PO QDAY 10/10/23 History mcg (2,000 unit) capsule (Vitamin D3) lisinopril 40 mg tablet 40 mg PO QDAY 07/13/2310/10 History omeprazole 20 mg capsule,delayed 20 mg PO QDAY 4 10/11/23 History release vitamin E (dl, acetate) 180 mg 180 mg PO QDAY 07/13/23 10/10/23 History (400 unit) capsule aspirin 81 mg chewable tablet 1 tab PO DAILY 10/02/23 10/10/23 History (Nuvia Chewable Low Dose Aspirin) cranberry 500 mg capsule 500 mg PO DAILY 10/02/2301/23 History fluticasone propionate 50 2 spray intranasal DAILY Unknown History mcg/actuation nasal spray,suspension amlodipine 10 mg tablet 10 mg PO QDAY 05/23/24 Unkno wn History atorvastatin 10 mg tablet 10 mg PO QHS 10/06/24 Unknow n History cephalexin 500 mg capsule 500 mg PO Q12 #14 CAPSULES 0 10/06/24 Unknown Rx simvastatin 20 mg tablet 20 mg PO QHS 10/06/24 Unknow n History Allergy/AdvReac Type Severity Reaction Status Date / Time bee venom protein (honey bee) Allergy Severe Anaphylaxis Verified 10/06/24 09:11 Sulfa (Sulfonamide Allergy Severe Anaphylaxis Verified 10/06/24 09:11 Antibiotics) Family History Grandmother Breast cancer Father Heart disease Myocardial infarction Mother Pulmonary embolism Social History Smoking Status: Never smoker alcohol intake: never substance use type: does not use ROS ROS Narrative General: Sometimes will feel hot and cold but no overt fever HENT: Denies headache, did have sinus infection with the symptoms improved EYES: Denies changes in vision Resp: Denies cough, denies shortness of breath Cardiac: Denies chest pain GI: Has had some intermittent general abdominal pain, and it is worse on Sunday and nausea especially with eating resulting in poor p.o. intake, had been having diarrhea though this is slowly becoming more formed : Denies changes in urination Extremity: Some chronic right lower extremity swelling MSK: Generalized weakness, fatigue, muscle cramps and aching Neuro: Denies any numbness/tingling Heme: Denies any bleeding or bruising Skin: Denies rashes Psychiatric: No complaints voiced Vital Signs Vital Signs Vital Signs: 10/06/24 09:10 10/06/24 11:09 10/06/24 13:00 Temperature 98 F 98.7 F Temperature Source Oral Oral Pulse Rate 95 86 77 Respiratory Rate 16 16 Blood Pressure 115/78 124/86 H 125/80 H Blood Pressure Mean 90 98 95 Pulse Ox 97 96 Oxygen Delivery Method Room Air Room Air 10/06/24 15:00 10/06/24 16:33 10/06/24 16:57 Temperature 98.2 F 98.1 F Temperature Source Oral Pulse Rate 64 81 78 Respiratory Rate 18 17 15 Blood Pressure 134/78 H 117/76 112/74 Blood Pressure Mean 96 89 86 Pulse Ox 98 96 99 Oxygen Delivery Method Room Air Room Air Weight Weight: 89.721 kg Body Mass Index (BMI) 30.0 Physical Exam Narrative General: Alert, oriented, no apparent distress HEENT: Atraumatic, normocephalic Eyes: Anicteric, normal conjunctiva, extraocular movements grossly intact Neck: Supple Respiratory: Clear to auscultation bilaterally, normal respiratory effort Cardiovascular: Regular rate and rhythm GI: Soft, nontender, nondistended Extremities: Some edema in right lower extremity which she reports is chronic Musculoskeletal: Moving all extremities Neuro: No overt focal neurological deficits Skin: Some bilateral lower extremity chronic skin changes Psych: Cooperative Results Lab / Micro Data 10/06/24 09:35 10/06/24 09:35 Labs: Laboratory Results - last 24 hr 10/06/24 09:35: WBC 6.4, RBC 4.46, Hgb 13.7, Hct 41.7, MCV 93.5, MCH 30.7, MCHC 32.9, RDW Std Deviation 52.3 H, RDW Coeff of Micheal 15.0 H, Plt Count 247, MPV 11.6, Immature Gran % (Auto) 0.200, Neut % (Auto) 75.3 H, Lymph % (Auto) 7.6 L, [place] % (Auto) 5.9, Eos % (Auto) 10.4 H, Baso % (Auto) 0.6, Absolute Neuts (auto)4.9, Absolute Lymphs (auto) 0.49 L, Nucleated RBC % 0, Sodium 139, Potassium 3.6, Chloride 103, Carbon Dioxide 24.7, Anion Gap 11, BUN 8, Creatinine 0.51 L, Estim Creat Clear Calc 146.05, Est GFR (MDRD) Non-Af 110, BUN/Creatinine Ratio 15.1, Glucose 110 H, Calcium 8.9, Total Bilirubin 0.75, Direct Bilirubin 0.36 H,AST 458 H, ALT 404 H, Alkaline Phosphatase 56, Lactate Dehydrogenase 1314 H, Total Creatine Kinase 5727 H, Total Protein 6.1, Albumin 3.5, Globulin 2.6, Lipase 28 10/06/24 09:55: Urine Color Olga Lidia, Urine Clarity Sl. Cloudy, Urine pH 6.0, Ur Specific [place] 1.020, Urine Protein 30 H, Urine Glucose (UA) Normal, Urine Ketones Negative, Urine Occult Blood 150 H, Urine Nitrite Positive H, Urine Bilirubin Negative, Urine Urobilinogen 1 H, Ur Leukocyte Esterase 100 H, Urine RBC 5-10 SEEN, Urine WBC 10-25 SEEN, Ur Squamous Epith Cells 5-10 SEEN, Urine Bacteria 3+, Hyaline Casts 0-5 SEEN, Urine Mucus 0 SEEN Micro: Microbiology 10/06/24 09:55 Mucosa - Nose SARS-CoV-2, Influenza & RSV (PCR) - Final Imaging Radiology Impression Abdomen/Pelvis CT 10/06/24 09:20 IMPRESSION: No CT evidence of acute process in the abdomen or pelvis. Reading Location: [facility] Abdomen Ultrasound 10/06/24 12:09 IMPRESSION: Multiple gallstones. Fatty infiltration of the liver. [facility] Assessment & Plan Assessment/Plan (1) UTI (urinary tract infection): (2) Elevated LFTs: (3) Elevated CPK: PLAN: Plan # Abdominal pain/nausea/diarrhea -CT abdomen no acute process -Does have elevated LFTs but imaging only reveals fatty infiltration of liver with no acute process -COVID-negative - Given stool is beginning to firm and is not necessarily diarrhea anymore we will hold off on any stool studies -Will check hepatitis panel -Will treat UTI as this could be a cause or contributor of symptoms -IV fluids -Supportive care -TSH - Transitional diet # Elevated CPK and LDH - Concern for rhabdo potentially due to statin, was on atorvastatin and seems tonow be on simvastatin, both are listed on med list but will need to clarify whatshe is taking, has not filled atorvastatin for months, did recently fill the simvastatin however - CK was 5700 with an elevated LDH and elevated liver function tests - IV fluids - Trend CPK and LDH - Trend liver function # Elevated liver function tests -AST of 458 and ALT of 404 - Mild elevation of direct bili 0.36 but total bili within normal limits and alkphos not elevated -Will check hepatitis panel -Repeat in a.m. -Imaging has been fairly benign -Possibly secondary to the above, trend CK and liver function # Abnormal UA with concern for UTI -UA with blood, nitrite, leuk esterase, white blood cells and bacteria -Empiric antibiotics while awaiting culture and sensitivity data #GERD -Continue PPI #Hypertension - BP only 112/74, holding home antihypertensives, add back as tolerated # Hyperlipidemia - Holding home statin #DVT ppx: Lovenox subcu Estrella Gross MD Charges/Coding Visit Charges Inpatient E&M: 25800 Init Hosp L2 10/06/24 1748 Cosigner Signature (if applicable): CC: Bishnu EMPLOYMENT OFFICE CLERK-C Blanquita Lim; Dr. Estrella Gross MD~ Signed [facility]07-07-2025 Radiology Diagnostic study note [facility] Imaging Services [address] [place], [place] [id number] Abdomen Limited MR#: [id number] Acct: [id number] Name: TAMARA JOSE Rep #: [id number] : 1970 F 54 From: Mick Machado MD PCP: ALEXA Bob, EMPLOYMENT OFFICE CLERK-C Status: REG ER Study:Abdomen Limited Date of Exam: 10/24 Exam# [id number] Ordering Dr: Will Tinsley DO PROCEDURE: ABDOMEN LIMITED 10/06/2024 REASON FOR EXAM: ELEVATED LIVER ENZYMES, ASSESS FOR LIVER/GALLBLADD COMPARISON: Prior CT scan of the abdomen and pelvis done earlier in the day. FINDINGS: Liver: Fatty infiltration of the liver. The liver is not enlarged. It xayjtdjt14.2 cm. Gallbladder: Multiple gallstones are seen. Gallbladder wall is not thickened. Common bile duct: Normal measuring 4 mm. . Pancreas: Normal Other: Visualized portions of the right kidney are unremarkable. No right upperquadrant ascites. US/Abdomen Limited IMPRESSION: Multiple gallstones. Fatty infiltration of the liver. Reading Location: [facility] CC: ALEXA EMPLOYMENT OFFICE CLERK-Bishnu Lim; Dr. Will Silveira DO ~ Vehicle Service Attendant: Signed [facility]07-07-2025 Radiology Diagnostic study note [facility] Imaging Services [address] [place] [address] Abdomen/Pelvis W IV Cont ONLY MR#: [id number] Acct: [id number] Name: TAMARA JOSE Rep #: [id number] : 1970 F 54 From: Pet er Desean SANCHEZ PCP: ALEXA Bob, EMPLOYMENT OFFICE CLERK-C Status: REG ER Study:Abdomen/Pelvis W IV Cont ONLY Date of E xam: 10/06/24 Exam# [id number] Ordering Dr: Will Tinsley DO PROCEDURE: ABDOMEN/PELVIS W IV CONT ONLY 10/06/2024 REASON FOR EXAM: ABDOMINAL PAIN TECHNIQUE: ABDOMEN/PELVIS W IV CONT ONLY Coronal and Sagittal reconstruction series were provided. CONTRAST: Isovue-300 VOLUME: 94 mL One or more dose reduction techniques were used (e.g., Automated exposure control, adjustment of the mA and/or kV according to patient size, use of iterative reconstruction technique. RADIATION DOSE SUMMARY: CTDlvol: 9.97 in 20.0 mGy DLP: 1059.26 mGycm COMPARISON: None. FINDINGS: Lung bases: Sub segmental ground-glass airspace disease in the left lower lobe. Bilateral dependentatelectasis. The liver, spleen, pancreas, adrenals and kidneys are unremarkable. Gallbladder: Large peripheral calcified stone in the gallbladder Urinary bladder and reproductive organs are unremarkable. Bowel: No acute process. Normal caliber and appearance. Appendix: Normal caliber and appearance. Lymph nodes: No adenopathy. Vasculature: Minimal scattered calcific plaque Peritoneum / Retroperitoneum: No free air or free fluid. Bones: No aggressive bone lesion. CT/Abdomen/Pelvis W IV Cont ONLY IMPRESSION: No CT evidence of acute process in the abdomen or pelvis. Reading Location: [facility]- CC: [facility] EMPLOYMENT OFFICE CLERK-C Blanquita Lim; Dr. Will Silveira DO ~ Vehicle Service Attendant: Signed [facility]02-21-2025 Evaluation note* Diagnosis Onset Date Resolution Status Admit Date CAD (coronary artery disease) acute May 23, 2024 12:57pm Hyperlipidemia acute May 042024 12:57pm Hypertension chronic May 12:57pm [facility] Work Phone: 1(180) 187-626005-20-2024 Hospital Discharge instructions* Discharge Instructions* Marion Wilson NP - 08/20/2023 5:40 PM EDT Have called in a prescription for Percocet to your pharmacy, please take this as directed pain relief. Medicine does contain Tylenol, do not take additional Tylenol when you are taking this medication. Return to the emergency department if you develop any new or worsening symptoms. documented in this encounterWarren General [id number] History of Present illness Narrative* Kianna Juan RN - 08/20/2023 4:47 PM EDT Pt had 2 upper teeth extracted today. Now face swollen and having increased pain.pt has been rotating tylenol and ibuprofen with no relief. documented in this encounterWarren General [id number] History of Present illness Narrative* Christi Morgan MD - 03/03/2023 5:16 PM EST [facility] Emergency Department Encounter Note Patient Name: Tamara Jose Initial Evaluation: 03/03/2023 : 1970 Patient's PCP: Adithya Alfaro NP Emergency Physician: Christi Morgan MD [...] by mouth 3 (three) times a day for7 days., Starting 03/03/2023, Until 03/10/2023, Print phenazopyridine [...] total) by mouth 1 (one) time each day.Do not crush or chew., Historical Med simvastatin [...] Yellow (*) Clarity, Urine Hazy (*) Specific Cushing, Urine 1.010 pH, Urine 7.5 Leukocytes, Urine [...] capsule 500 mg (500 mg oral Given 03/03/23 1804) HYDROcodone-acetaminophen (NORCO) 5-325 mg per tablet 1 [...] indication at this time, she is tolerating oralintake, hemodynamically stable. I discussed the importance of [...] by mouth 3 (three) times a day for7 days. 21 each 03/03/2023 03/10/2023 Christi Morgan [...] Christi Morgan MD 03/03/232157 documented in this encounterThe [facility]al[facility] [place] note* Diagnosis Acute cystitis without hematuria- Primary documented in this encounter [facility] noteNo assessment information availableWSheltering Arms Hospital Work Phone: Evaluation note* Diagnosis Face pain- Primary Headache documented in this encounter [facility] note* Diagnosis Onset Date Resolution Status Admit Date Elevated CPK acute October 06 5:28pm Elevated LFTs acute October 06 025 5:28pm UTI (urinary tract infection) acute October 06, 2024 5:28pm [facility] Work Phone: History and physical note Author Estrella Gross [facility] Note Date/Time October 06, 2024 5:48p m [facility] Medical Records Department [address] [place] [address] H&P Exam - Hospitalist 10/06/24 1727 MR#: [id number] Acct: [id number] Name: TAMARA JOSE Rep #:[id number] : 1970 54 From: Estrella Gross MD PCP: ALEXA Bob, EMPLOYMENT OFFICE CLERK-C Statu s:REG ER Location: ED HPI - General General Date of Admission: 10/06/24 Date of Service: 10/06/24 Chief Complaint: Weakness, fatigue, aching muscles HPI Narrative TAMARA JOSE, is a 54-year-old female history of GERD, hypertension, hyperlipidemia who presented to [facility] ED 10/06/2024 with abdominal pain and nausea. She has felt unwell for 2 weeks and notes that started with URI symptoms and a cough but that has now resolved and she has beenhaving general abdominal pain, nausea, decreased appetite and diarrhea and also feels her taste is different than usual and she has early satiety. No fevers orchills, shortness of breath, chest pain, emesis, dysuria. In the ED temp 98, heart rate 95 blood pressure 115/78, respiratory rate 16 and pulse ox 97% on room air. CBC with white blood cell count 6.4 and hemoglobin 13.7. BMP with normal kidney function and no electrolyte abnormalities. Lipase of 28. LFTs did reveal a total bili of 0.75 with a direct bili of 0.36, AST 458 and ALT of 404 with normal alk phos. UA with nitrate, leuk esterase, blood cells and 3+ bacteria. COVID and flu negative. CTA of the abdomen and pelvis with no acute process and abdominal ultrasound with multiple gallstones and fatty infiltrationof the liver but normal common bile duct, no thickening gallbladder wall, and liver is not enlarged. CK noted to be 5700, LDH 1300. Given abnormal labs and persistent symptoms hospitalist contacted for admission. Patient evaluated at bedside. She reports that for the past 2 to 3 weeks she has had significant fatigue and weakness and muscle aches. She has had some intermittent abdominal pain as well the worst of which was on Sunday and is felt nauseated particularlywith eating, had diarrhea as well though this is slowly becoming more formed. Does note that she had a sinus infection several weeks ago and finished Augmentin and azithromycin but has not been on these for couple of weeks. Denies fevers but reports she does get some chilled feeling. No present chest pain or shortness of breath, has some chronic swelling in right lower extremity after she broke it. Denies any changes in urination. Reports she has been lightheaded twice over the past couple of weeks as well but none today, at present actually feeling little bit better [facility] Medical History Hyperlipidemia Wears hearing aid Post-menopausal History of steroid therapy Gastric reflux Non-smoker History of edema History of stress test Hypertension History of broken leg Kidney anomaly, congenital (~09/10/23) History of kidney problems delivery delivered Home Medications ?Medication ?Instructions ?Recorded ?Last Taken ?Type cholecalciferol (vitamin D3) 50 100 mcg PO QDAY 10/10/23 History mcg (2,000 unit) capsule (Vitamin D3) lisinopril 40 mg tablet 40 mg PO QDAY 07/13/2310/10 History omeprazole 20 mg capsule,delayed 20 mg PO QDAY 4 10/11/23 History release vitamin E (dl, acetate) 180 mg 180 mg PO QDAY 07/13/23 10/10/23 History (400 unit) capsule aspirin 81 mg chewable tablet 1 tab PO DAILY 10/02/23 10/10/23 History (Nuvia Chewable Low Dose Aspirin) cranberry 500 mg capsule 500 mg PO DAILY 10/02/2301/23 History fluticasone propionate 50 2 spray intranasal DAILY Unknown History mcg/actuation nasal spray,suspension amlodipine 10 mg tablet 10 mg PO QDAY 05/23/24 Unkno wn History atorvastatin 10 mg tablet 10 mg PO QHS 10/06/24 Unknow n History cephalexin 500 mg capsule 500 mg PO Q12 #14 CAPSULES 0 10/06/24 Unknown Rx simvastatin 20 mg tablet 20 mg PO QHS 10/06/24 Unknow n History Allergy/AdvReac Type Severity Reaction Status Date / Time bee venom protein (honey bee) Allergy Severe Anaphylaxis Verified 10/06/24 09:11 Sulfa (Sulfonamide Allergy Severe Anaphylaxis Verified 10/06/24 09:11 Antibiotics) Family History Grandmother Breast cancer Father Heart disease Myocardial infarction Mother Pulmonary embolism Social History Smoking Status: Never smoker alcohol intake: never substance use type: does not use ROS ROS Narrative General: Sometimes will feel hot and cold but no overt fever HENT: Denies headache, did have sinus infection with the symptoms improved EYES: Denies changes in vision Resp: Denies cough, denies shortness of breath Cardiac: Denies chest pain GI: Has had some intermittent general abdominal pain, and it is worse on Sunday and nausea especially with eating resulting in poor p.o. intake, had been having diarrhea though this is slowly becoming more formed : Denies changes in urination Extremity: Some chronic right lower extremity swelling MSK: Generalized weakness, fatigue, muscle cramps and aching Neuro: Denies any numbness/tingling Heme: Denies any bleeding or bruising Skin: Denies rashes Psychiatric: No complaints voiced Vital Signs Vital Signs Vital Signs: 10/06/24 09:10 10/06/24 11:09 10/06/24 13:00 Temperature 98 F 98.7 F Temperature Source Oral Oral Pulse Rate 95 86 77 Respiratory Rate 16 16 Blood Pressure 115/78 124/86 H 125/80 H Blood Pressure Mean 90 98 95 Pulse Ox 97 96 Oxygen Delivery Method Room Air Room Air 10/06/24 15:00 10/06/24 16:33 10/06/24 16:57 Temperature 98.2 F 98.1 F Temperature Source Oral Pulse Rate 64 81 78 Respiratory Rate 18 17 15 Blood Pressure 134/78 H 117/76 112/74 Blood Pressure Mean 96 89 86 Pulse Ox 98 96 99 Oxygen Delivery Method Room Air Room Air Weight Weight: 89.721 kg Body Mass Index (BMI) 30.0 Physical Exam Narrative General: Alert, oriented, no apparent distress HEENT: Atraumatic, normocephalic Eyes: Anicteric, normal conjunctiva, extraocular movements grossly intact Neck: Supple Respiratory: Clear to auscultation bilaterally, normal respiratory effort Cardiovascular: Regular rate and rhythm GI: Soft, nontender, nondistended Extremities: Some edema in right lower extremity which she reports is chronic Musculoskeletal: Moving all extremities Neuro: No overt focal neurological deficits Skin: Some bilateral lower extremity chronic skin changes Psych: Cooperative Results Lab / Micro Data 10/06/24 09:35 10/06/24 09:35 Labs: Laboratory Results - last 24 hr 10/06/24 09:35: WBC 6.4, RBC 4.46, Hgb 13.7, Hct 41.7, MCV 93.5, MCH 30.7, MCHC 32.9, RDW Std Deviation 52.3 H, RDW Coeff of Micheal 15.0 H, Plt Count 247, MPV 11.6, Immature Gran % (Auto) 0.200, Neut % (Auto) 75.3 H, Lymph % (Auto) 7.6 L, [place] % (Auto) 5.9, Eos % (Auto) 10.4 H, Baso % (Auto) 0.6, Absolute Neuts (auto)4.9, Absolute Lymphs (auto) 0.49 L, Nucleated RBC % 0, Sodium 139, Potassium 3.6, Chloride 103, Carbon Dioxide 24.7, Anion Gap 11, BUN 8, Creatinine 0.51 L, Estim Creat Clear Calc 146.05, Est GFR (MDRD) Non-Af 110, BUN/Creatinine Ratio 15.1, Glucose 110 H, Calcium 8.9, Total Bilirubin 0.75, Direct Bilirubin 0.36 H,AST 458 H, ALT 404 H, Alkaline Phosphatase 56, Lactate Dehydrogenase 1314 H, Total Creatine Kinase 5727 H, Total Protein 6.1, Albumin 3.5, Globulin 2.6, Lipase 28 10/06/24 09:55: Urine Color Olga Lidia, Urine Clarity Sl. Cloudy, Urine pH 6.0, Ur Specific Cushing 1.020, Urine Protein 30 H, Urine Glucose (UA) Normal, Urine Ketones Negative, Urine Occult Blood 150 H, Urine Nitrite Positive H, Urine Bilirubin Negative, Urine Urobilinogen 1 H, Ur Leukocyte Esterase 100 H, Urine RBC 5-10 SEEN, Urine WBC 10-25 SEEN, Ur Squamous Epith Cells 5-10 SEEN, Urine Bacteria 3+, Hyaline Casts 0-5 SEEN, Urine Mucus 0 SEEN Micro: Microbiology 10/06/24 09:55 Mucosa - Nose SARS-CoV-2, Influenza & RSV (PCR) - Final Imaging Radiology Impression Abdomen/Pelvis CT 10/06/24 09:20 IMPRESSION: No CT evidence of acute process in the abdomen or pelvis. Reading Location: [facility] Abdomen Ultrasound 10/06/24 12:09 IMPRESSION: Multiple gallstones. Fatty infiltration of the liver. [facility] Assessment & Plan Assessment/Plan (1) UTI (urinary tract infection): (2) Elevated LFTs: (3) Elevated CPK: PLAN: Plan # Abdominal pain/nausea/diarrhea -CT abdomen no acute process -Does have elevated LFTs but imaging only reveals fatty infiltration of liver with no acute process -COVID-negative - Given stool is beginning to firm and is not necessarily diarrhea anymore we will hold off on any stool studies -Will check hepatitis panel -Will treat UTI as this could be a cause or contributor of symptoms -IV fluids -Supportive care -TSH - Transitional diet # Elevated CPK and LDH - Concern for rhabdo potentially due to statin, was on atorvastatin and seems tonow be on simvastatin, both are listed on med list but will need to clarify whatshe is taking, has not filled atorvastatin for months, did recently fill the simvastatin however - CK was 5700 with an elevated LDH and elevated liver function tests - IV fluids - Trend CPK and LDH - Trend liver function # Elevated liver function tests -AST of 458 and ALT of 404 - Mild elevation of direct bili 0.36 but total bili within normal limits and alkphos not elevated -Will check hepatitis panel -Repeat in a.m. -Imaging has been fairly benign -Possibly secondary to the above, trend CK and liver function # Abnormal UA with concern for UTI -UA with blood, nitrite, leuk esterase, white blood cells and bacteria -Empiric antibiotics while awaiting culture and sensitivity data #GERD -Continue PPI #Hypertension - BP only 112/74, holding home antihypertensives, add back as tolerated # Hyperlipidemia - Holding home statin #DVT ppx: Lovenox subcu Estrella Gross MD Charges/Coding Visit Charges Inpatient E&M: 76701 Init Hosp L2 10/06/24 1748 <Electronically signed by Estrella Gross MD> Cosigner Signature (if applicable): CC: C EMPLOYMENT OFFICE CLERK-C Blanquita Lim; Dr. Estrella Gross MD~ Signed [facility] Work Phone: Hospital Discharge instructions* Attachments The following attachments cannot be sent through Care Everywhere. * UTI (Urinary Tract Infection): Female (Iranian) documented in this encounterTr[facility] Centersp[facility] Discharge instructions Additional Instructions Date of Discharge: 10/08/24WShel[facility] Work Phone: Reason for referral (narrative)No reason for referral information availableWSheltering Arms Hospital Work Phone: Summary Purpose Family History No Family History Records Found Relationship Condition Age at Onset Recorded Date/T ángel grandmother Malignant neoplasm of breast Unknown father Cardiac disease Unknown Myocardial infarction Unknown mother Pulmonary embolism Unknown Advance Directives No Advanced Directives Records Found Advance Directive Response Recorded Date/ Time Do you have a Healthcare Power of Quality Control Microbiology Supervisor? No October 06, 2024 9:59am Advance Directive Response Recorded Date/ Time Do you have a Healthcare Power of Quality Control Microbiology Supervisor? No October 06, 2024 6:44pm Chief Complaint and Reason for Visit Chief Complaint SCREENING Chief Complaint Admit Date HYPERTENSION March 24, 2024 6:51am HYPERTENSION March 24, 2024 8:10am Moderate Plaque Formation (Raphael) Fe ru2024 12:57pm CAD/ASHD June 13, 2024 11: 06am CAD/ASHD June 17, 2024 2:4 2pm SCREENING June 20, 2024 9:3 3am Reason for Visit Admit Date CAD (coronary artery disease) May 042024 12:57pm Hyperlipidemia May 23, 2024 12:57pm Hypertension May 23, 2024 12:57pm Chief Complaint Admit Date Moderate Plaque Formation (Raphael) Feb ruary 2024 12:57pm CAD/ASHD June 13, 2024 11: 06am CAD/ASHD June 17, 2024 2:4 2pm SCREENING June 20, 2024 9:3 3am Chief Complaint Admit Date CAD/ASHD June 13, 2024 11: 06am CAD/ASHD June 17, 2024 2:4 2pm SCREENING June 20, 2024 9:3 3am abdom October 06, 2024 5:27p m ELEVATED CK October 06, 2024 5:28p m Reason for Visit Admit Date Elevated CPK October 06, 2024 5:28p m Elevated LFTs October 06, 2024 5:28p m UTI (urinary tract infection) October 06, 2024 5:28pm Chief Complaint Admit Date CAD/ASHD June 13, 2024 11: 06am CAD/ASHD June 17, 2024 2:4 2pm SCREENING June 20, 2024 9:3 3am abdom October 06, 2024 5:27p m ELEVATED CK October 06, 2024 5:28p m ELEVATED CK October 07, 2024 4:33p m Additional Source Comments INFORMATION SOURCE (unrecogn ized section and content) DATE CREATED AUTHOR 07/28/2022 [facility] ([place]) DATE CREATED AUTHOR AUTHOR'S ORGANIZ ATION 01/20/2023 [facility] DATE CREATED AUTHOR AUTHOR'S ORGANIZ ATION 08/16/2023 [facility] DATE CREATED AUTHOR AUTHOR'S ORGANIZ ATION 08/22/2023 [facility] DATE CREATED AUTHOR AUTHOR'S ORGANIZ ATION 10/15/2024 [facility] Reason for Visit (unrecogniz ed section and [...] On 08/20/23 at 1715, For 1 dose 1722 (Given - Provid er: Solange Cheek RN) Care Teams (unrecognized sec tion and content) Channel Cementer Insole Machine Relationship Specialty Start Date End Date Adithya Alfaro NP [address] [facility] [address] [place] [phone] PCP - General Nurse Practitioner 03/03/23 Team Status: Active Member Role Status Dates Dr. Nathanael Joyner MD Family Provider Active [facility] Primary Care Provider A ctive Team Status: Inactive Member Role Status Dates [facility] Primary Care Provider A ctive Blanquita Lim EMPLOYMENT OFFICE CLERK, EMPLOYMENT OFFICE CLERK-C Attending Provider, Referrin g Provider Active [employer] Relationship Specialty Start Date End Date Nate Adithyaivan Ponce NP [address] [place] [phone] PCP - General Nurse Practitioner 03/03/23 Team Status: Active Member Role Status Dates Blanquitahelena Lim VSC, EMPLOYMENT OFFICE CLERK-C Primary Care Provider Activ e Team Status: Inactive Member Role Status Dates Blanquita Lim VSC, EMPLOYMENT OFFICE CLERK-C Primary Care Provider Activ e Start: March 24, 2024 End: March 24, 2024 Blanquita Lim VSC, EMPLOYMENT OFFICE CLERK-C Attending Provider Active Start: March 24, 2024 End: March 24, 2024 Blanquita Lim VSC, EMPLOYMENT OFFICE CLERK-C Referring Provider Active Start: March 24, 2024 End: March 24, 2024 Team Status: Active Member Role Status Dates Blanquitahelena Lim VSC, EMPLOYMENT OFFICE CLERK-C Primary Care Provider Activ e Start: March 24, 2024 Blanquita Lim VSC, EMPLOYMENT OFFICE CLERK-C Referring Provider Active Start: March 24, 2024 Blanquita Lim VSC, EMPLOYMENT OFFICE CLERK-C Other Provider Active Start: March 24, 2024 Dr. Jhon Caldwell MD Attending Provider Active S tart: March 24, 2024 Team Status: Inactive Member Role Status Dates Blanquita Lim VSC, EMPLOYMENT OFFICE CLERK-C Primary Care Provider Activ e Start: May 23, 2024 End: May 23, 2024 Blanquita Lim VSC, EMPLOYMENT OFFICE CLERK-C Referring Provider Active Start: May 23, 2024 End: May 23, 2024 Dr. Javier Morales MD Attending Provider Active Start: May 23, 2024 End: May 23, 2024 Team Status: Inactive Member Role Status Dates Blanquitahelena Lim VSC, EMPLOYMENT OFFICE CLERK-C Primary Care Provider Activ e Start: June 13, 2024 End: June 13, 2024 Dr. Javier Morales MD Attending Provider Active Start: June 13, 2024 End: June 13, 2024 Dr. Javier Morales MD Referring Provider Active Start: June 13, 2024 End: June 13, 2024 Team Status: Active Member Role Status Dates Blanquita Raphael SANTANAC, EMPLOYMENT OFFICE CLERK-C Primary Care Provider Activ e Start: June 17, 2024 Dr. Javier Morales MD Referring Provider Active Start: June 17, 2024 Dr. Javier Morales MD Other Provider Active St art: June 17, 2024 Dr. Vijay Mcclelland MD Attending Provider Activ e Start: June 17, 2024 Team Status: Active Member Role Status Dates Blanquita Lim VSC, EMPLOYMENT OFFICE CLERK-C Primary Care Provider Activ e Start: June 20, 2024 Blanquita Lim VSC, EMPLOYMENT OFFICE CLERK-C Attending Provider Active Start: June 20, 2024 Blanquitaarsalan Lim VSC, EMPLOYMENT OFFICE CLERK-C Referring Provider Active Start: June 20, 2024 Team Status: Inactive Member Role Status Dates Blanquita Lim VSC, EMPLOYMENT OFFICE CLERK-C Primary Care Provider Activ e Start: June 20, 2024 End: June 20, 2024 Blanquita Lim VSC, EMPLOYMENT OFFICE CLERK-C Attending Provider Active Start: June 20, 2024 End: June 20, 2024 Blanquita Lim VSC, EMPLOYMENT OFFICE CLERK-C Referring Provider Active Start: June 20, 2024 End: June 20, 2024 Team Status: Inactive Member Role Status Dates Blanquita Lim VSC, EMPLOYMENT OFFICE CLERK-C Primary Care Provider Activ e Start: September 10, 2024 End: September 10, 2024 Blanquita Lim VSC, EMPLOYMENT OFFICE CLERK-C Attending Provider Active Start: September 10, 2024 End: September 10, 2024 Team Status: Active Member Role/Relationship Status Dates Blanquita Lim VSC, EMPLOYMENT OFFICE CLERK-C Primary Care Provider Activ e Team Status: Inactive Member Role/Relationship Status Dates Blanquita Lim VSC, EMPLOYMENT OFFICE CLERK-C Primary Care Provider Activ e Start: June 13, 2024 End: June 13, 2024 Dr. Javier Morales MD Attending Provider Active Start: June 13, 2024 End: June 13, 2024 Dr. Javier Morales MD Referring Provider Active Start: June 13, 2024 End: June 13, 2024 Team Status: Active Member Role/Relationship Status Dates Blanquita SANTANAC, EMPLOYMENT OFFICE CLERK-C Primary Care Provider Activ e Start: June 17, 2024 Dr. Javier Morales MD Referring Provider Active Start: June 17, 2024 Dr. Javier Morales MD Other Provider Active St art: June 17, 2024 Dr. Vijay Mcclelland MD Attending Provider Activ e Start: June 17, 2024 Team Status: Inactive Member Role/Relationship Status Dates Blanquita SANTANAC, EMPLOYMENT OFFICE CLERK-C Primary Care Provider Activ e Start: June 20, 2024 End: June 20, 2024 Blanquita SANTANAC, EMPLOYMENT OFFICE CLERK-C Attending Provider Active Start: June 20, 2024 End: June 20, 2024 Blanquita Lim VSC, EMPLOYMENT OFFICE CLERK-C Referring Provider Active Start: June 20, 2024 End: June 20, 2024 Team Status: Inactive Member Role/Relationship Status Dates Blanquita Lim VSC, EMPLOYMENT OFFICE CLERK-C Primary Care Provider Activ e Start: September 10, 2024 End: September 10, 2024 Blanquita Lim VSC, EMPLOYMENT OFFICE CLERK-C Attending Provider Active Start: September 10, 2024 End: September 10, 2024 Team Status: Active Member Role/Relationship Status Dates Blanquita SANTANAC, EMPLOYMENT OFFICE CLERK-C Primary Care Provider Activ e Start: October 06, 2024 Dr. Will Silveira , DO Emergency Provider Activ e Start: October 06, 2024 Dr. Estrella Gross MD Attending Provider Active Start: October 06, 2024 Team Status: Active Member Role/Relationship Status Dates Blanquita SANTANAC, EMPLOYMENT OFFICE CLERK-C Primary Care Provider Activ e Start: October 06, 2024 Dr. Will Silveira DO Emergency Provider Activ e Start: October 06, 2024 Dr. Estrella Gross MD Admit Provider Active Star t: October 06, 2024 Dr. Estrella Gross MD Attending Provider Active Start: October 06, 2024 Team Status: Inactive Member Role/Relationship Status Dates Blanquita SANTANAC, EMPLOYMENT OFFICE CLERK-C Primary Care Provider Activ e Start: October 06, 2024 End: October 08, 2024 Dr. Will Silveira DO Emergency Provider Activ e Start: October 06, 2024 End: October 08, 2024 Dr. Estrella Gross MD Admit Provider Active Star t: October 06, 2024 End: October 08, 2024 Dr. Estrella Gross MD Other Provider Active Star t: October 06, 2024 End: October 08, 2024 Dr. Bayron Leal , Attending Provider Active Start: October 06, 2024 End: October 08, 2024 Team Status: Active Member Role/Relationship Status Dates Blanquita Raphael LIU, EMPLOYMENT OFFICE CLERK-C Primary Care Provider Activ e Start: October 07, 2024 Dr. Will Silveira , Emergency Provider Activ e Start: October 07, 2024 Dr. Estrella Gross MD Admit Provider Active Star t: October 07, 2024 Dr. Estrella Gross MD Other Provider Active Star t: October 07, 2024 Dr. Bayron Leal , DO Attending Provider Active Start: October 07, 2024 Dr. Bayron Leal , DO Other Provider Active S tart: October 07, 2024 Goals (unrecognized section and content) Goals [...] BE BASED ON THE PRIMARY CLINICAL RECORDS. [employer] provides no warranty or guarantee of the accuracy or completeness of information in this document.
== END 2024-10-16 16:00 | disposition home or self-care (01) ==
PROVIDERS: Physician Assistant; Emergency Provider Emergency Medicine; PCP Nurse Practitioner Family; Visit Provider Emergency Medicine
DX: R60.0 Localized edema (principal); I25.10 Atherosclerotic heart disease of native coronary artery without angina pectoris; E78.5 Hyperlipidemia, unspecified; I10 Essential (primary) hypertension; R74.8 Abnormal levels of other serum enzymes; R74.01 Elevation of levels of liver transaminase levels
CPT/HCPCS: 71046; 80053; 83880; 85025; 96374; 99284; J1938

== ENCOUNTER → 2024-10-23 | Outpatient (CLI) | payer MEDICAID, SELFPAY ==
[2024-10-23 17:11] LABS: AST(SGOT) 472 U/L (<=31); Alanine Aminotransfer ALT/SGPT 415 U/L (<=34); Albumin, Serum 3.3 g/dL (3.5-5.0); Alkaline Phosphatase 54 U/L (35-104); Anion Gap 12 (5-15); BUN 13 mg/dL (4-19); BUN/Creat Ratio 27.7 RATIO (10-20); Bilirubin, Direct 0.19 mg/dL (0.00-0.30); Calcium,Total 9.3 mg/dL (7.6-11.0); Carbon Dioxide 21.2 mmol/L (21.0-32.0); Chloride 100 mmol/L (98-108); Ferritin 280 ng/mL (22-378); Globulin 2.4 g/dL (2.2-4.2); Glucose 131 mg/dL (70-99); Iron Binding Capacity,Total 263 ug/dL (250-450); Potassium 4.6 mmol/L (3.3-5.1)
[2024-10-23 17:21] LABS: Prothrombin Time (Protime)PT. 14.2 SECONDS (11.7-14.9)
[2024-10-23 18:20] LABS: CRP 8.85 mg/L (0.0-3.0); Iron 63 ug/dL (50-170); Iron Binding Capacity,Unsat 200 ug/dL (228-428); LDH 1179 U/L (84-246)
[2024-10-27 11:08] LABS: CPK Total, Creatine Kinase 5826 U/L (24-195)
[2024-10-27 16:08] LABS: ANTINUCLEAR ANTIBODIES DIRECT Negative (Negative)
[2024-10-28 07:08] LABS: Anti-Smooth Muscle ABS 22 Units (0-19); Cytoplasmic Ab (C-ANCA) <1:20 titer (Neg:<1:20); Immunoglobulin A 248 mg/dL (87-352); Perinuclear Ab (P-ANCA) <1:20 titer (Neg:<1:20)
== END | disposition home or self-care (01) ==
LOC: VSLAB 13:39
PROVIDERS: Nurse Practitioner Acute Care; PCP Nurse Practitioner Family; Visit Provider Nurse Practitioner Family
DX: R63.5 Abnormal weight gain (principal); M62.82 Rhabdomyolysis; R74.01 Elevation of levels of liver transaminase levels; R60.0 Localized edema; R79.89 Other specified abnormal findings of blood chemistry
CPT/HCPCS: 80048; 80076; 82390; 82550; 82728; 82784; 83516; 83540; 83550; 83615; 84443; 85610; 86037; 86038; 86140; 86225; 86704; 86708

== ENCOUNTER → 2024-10-28 | Outpatient (CLI) | payer MEDICAID, SELFPAY ==
[2024-10-28 17:17] LABS: Free T3 2.7 pg/mL (2.18-3.98); T4 Total, Thyroxin 7.8 ug/dL (4.8-13.9)
[2024-10-29 14:08] LABS: Lyme Scn Total Ab w/Rflx Negative (Negative)
== END | disposition home or self-care (01) ==
LOC: VSLAB 12:27
PROVIDERS: PCP Nurse Practitioner Family
DX: R94.6 Abnormal results of thyroid function studies (principal); M62.81 Muscle weakness (generalized)
CPT/HCPCS: 36415; 84436; 84439; 84443; 84481; 86376; 86618; 86800

== ENCOUNTER → 2024-10-30 | Outpatient (CLI) | payer MEDICAID, SELFPAY | END | disposition home or self-care (01) | LOC: LAB 12:38 | PROVIDERS: PCP Nurse Practitioner Family; Referring Provider Nurse Practitioner Acute Care; Visit Provider Nurse Practitioner Acute Care | DX: R74.01 Elevation of levels of liver transaminase levels (principal); R60.0 Localized edema; R74.8 Abnormal levels of other serum enzymes; R53.1 Weakness | CPT/HCPCS: 36415; 82085 ==

== ENCOUNTER → 2024-11-24 | Outpatient (CLI) | payer MEDICAID, SELFPAY ==
--- OUTSIDE RECORDS SUMMARY | 2024-11-24 15:57 | XMS RPT_ITS | CCD ---
Author Organization [facility] CliniSymt Care Team Providers Care Moshgiach Name Role Phone NATE, ADITHYA Admitting Unavailable [...] Consulting Unavailable PROVIDER, UNKNOWN Consulting Unavailable Nate PICKER AND PACKER, Adithya K Primary Care Provider [phone] NATE, ADITHYA Attending Unavailable NATE, ADITHYA Admitting Unavailable NATE, ADITHYA Primary Care Unavailable NATE, ADITHYA Consulting Unavailable PROVIDER, UNKNOWN Consulting Unavailable NATE, ADITHYA Consulting Unavailable NATE, ADITHYA Attending Unavailable NATE, ADITHYA Admitting Unavailable NATE, ADITHYA Primary Care Unavailable PROVIDER, UNKNOWN Consulting Unavailable NATE, ADITHYA Attending Unavailable NATE, ADITHYA Admitting Unavailable NATE, ADITHYA Primary Care Unavailable NATE, ADITHYA Consulting Unavailable PROVIDER, UNKNOWN Consulting Unavailable ZULEMA, VITA E Admitting Unavailable ZULEMA, VITA E Primary Care Unavailable ZULEMA, VITA E Attending Unavailable NATE, ADITHYA Consulting Unavailable PROVIDER, UNKNOWN Consulting Unavailable NATE, ADITHYA K Primary Care Unavailable LACIE MALIK Attending Unavailable NATE, ADITHYA K Primary Care Unavailable CHRISTI MORGAN Attending Unavailable Raphael PICKER AND PACKER-C, Blanquita Primary Care Provider Raphael PICKER AND PACKER-C, Blanquita Attending Provider Raphael PICKER AND PACKER-C, Blanquita Referring Provider Raphael PICKER AND PACKER-C, Blanquita Other Provider Javi ILM, Dr. Ferreira Attending Provider Carmen LIM, Dr. Herrera Attending Provider Carmen LIM, Dr. Herrera Referring Provider Carmen LIM, Dr. Herrera Other Provider [phone] Krystin LIM, Dr. Linares Attending Provider Raphael PICKER AND PACKER-C, Blanquita Primary Care Provider Raphael PICKER AND PACKER-C, Blanquita Referring Provider Raphael PICKER AND PACKER-C, Blanquita Attending Provider Raphael PICKER AND PACKER-C, Blanquita Primary Care Provider Carmen LIM, Dr. Herrera Attending Provider Raphael PICKER AND PACKER-C, Blanquita Referring Provider Raoul SANCHEZ, Dr. Solis Emergency Provider Renato LIM, Dr. De La Rosa Attending Provider Renato LIM, Dr. De La Rosa Admit Provider Renato LIM, Dr. De La Rosa Other Provider Dr. Bayron Leal DO Attending Provider Dr. Bayron Leal DO Other Provider Raphael PICKER AND PACKER-C, Blanquita Primary Care Provider Tannhof PICKER AND PACKER-C, Mackenzie Attending Provider Tannhof PICKER AND PACKER-C, Mackenzie Referring Provider Dr. Mulugeta Chaney DO Emergency Provider [phone] Silviano PICKER AND PACKER-C, Christi Attending Provider Raphael PICKER AND PACKER-C, Blanquita Primary Care Provider Raphael PICKER AND PACKER-C, Blanquita Attending Provider Dr. Mulugeta Chaney DO Attending Provider Raphael PICKER AND PACKER-C, Blanquita Referring Provider Silviano PICKER AND PACKER-C, Christi Other Provider Eh PICKER AND PACKER-CMahesh Attending Provider Silviano PICKER AND PACKER-CChristi Referring Provider Jonathan LIM, Dr. Coffey Attending Provider [phone] Raphael, Blanquita Primary Care Unavailable Raphael, Blanquita Referring Unavailable Raphael, Blanquita Attending Unavailable Raphael, Blanquita Consulting Unavailable Raphael, Blanquita Primary Care Unavailable Raphael, Blanquita Referring Unavailable Jhon Caldwell Attending Unavailable Renato Estrella Consulting Unavailable Gross, Estrella Admitting Unavailable Raphael, Blanquita Primary Care Unavailable Bayron Leal Attending Unavailable Bayron Leal Consulting Unavailable Raphael, Blanquita Primary Care Unavailable David Mackenzie Referring Unavailable Mackenzie Hernandez Attending Unavailable Raphael, Blanquita Referring Unavailable Medical Wolcott, [facility] Care Unavailable Raphael, Blanquita Attending Unavailable Raphael, Blanquita Primary Care Unavailable Beam Mahesh LIU Attending Unavailable Raphael, Blanquita Primary Care Unavailable Alexx Castillo Referring Unavailable Alexx Castillo Attending Unavailable Javier Morales Referring Unavailable Javier Morales Consulting Unavailable Raphael, Blanquita Primary Care Unavailable Vijay Mcclelland Attending Unavailabl e Estrella Gross Attending Unavailable Raphael, Blanquita Primary Care Unavailable Raphael, Blanquita Primary Care Unavailable Alexx Castillo Referring Unavailable Alexx Castillo Attending Unavailable Mackenzie Hernandez Referring Unavailable Mackenzie Hernandez Attending Unavailable Raphael, Blanquita Primary Care Unavailable Raphael, Blanquita Primary Care Unavailable Christi Shore Referring Unavailable Christi Shore Attending Unavailable Javier Morales Attending Unavailable Raphael, Blanquita Primary Care Unavailable Javier Morales Referring Unavailable Gross, Estrella Consulting Unavailable Gross, Estrella Admitting Unavailable Raphael, Blanquita Primary Care Unavailable Bayron Leal Attending Unavailable Medical Wolcott, [facility] Care Unavailable Raphael, Blanquita Attending Unavailable Raphael, Blanquita Attending Unavailable Raphael, Blanquita Referring Unavailable Raphael, Blanquita Primary Care Unavailable Raphael, Blanquita Primary Care Unavailable Mulugeta Chaney Attending Unavailable Raphael, Blanquita Attending Unavailable Raphael, Blanquita Primary Care Unavailable Raphael, Blanquita Primary Care Unavailable Christi Shore Consulting Unavailable Mackenzie Hernandez Attending Unavailable Raphael, Blanquita Primary Care Unavailable Raphael, Blanquita Referring Unavailable Christi Shore Attending Unavailable RaphaelBlanquita Primary Care Unavailable Blanquita Lim Referring Unavailable Alexx Castillo Attending Unavailable Blanquita Lim Referring Unavailable Javier Morales Attending Unavailable RaphaelBlanquita Primary Care Unavailable Allergies Allergy Classification Reported Allergen(s) Allergy Type Date of Onset Reaction(s) Facility (2 sources) bee venom Drug allergy (disorder) [facility] Repository (2 sources) Sulfonamides (Antibiotic) Drug allergy (disorder) [facility] Repository (3 sources) Sulfonamides (Antibiotic); Translations: [SULFA (SULFONAMIDE ANTIBIOTICS)] Propensity to adverse reactions 3 Swelling [facility] (15 sources) Bee Venom Protein (Honey Bee); Translations: [BEE VENOM PROTEIN (HONEY BEE)] Propensity to adverse reactions 3 Anaphylaxis [facility] (12 sources) Sulfonamides (Antibiotic) Allergy to substance 5 Anaphylaxis [facility] (1 source) Sulfonamides (Antibiotic) Drug allergy (disorder) 5 [facility] Repository (1 source) bee venom protein (honey bee) Drug allergy (disorder) 5 [facility] Repository Medications Current Medications Medication Drug Class(es) Dates Sig (Normalized) Sig (Original) amLODIPine 10 mg oral tablet (20 sources) Dihydropyridine Calcium Channel Wyatt Start: 05-23-2024 [...] time each day. Active aspirin 81 mg oral tablet (19 sources) Platelet Aggregation Inhibitor, Nonsteroidal Anti-inflammatory Drug Start: 10-17-2024 take 1 tablet by mouth once daily Aspirin 81 mg tablet Active 81 mg PO daily October 17, 2024 12:00am Start: 10-02-2023 End: 10-08-2024 Aspirin (Nuvia Chewable Aspi rin) 81 mg tablet,chewable Discontinued 1 {tbl} PO DAILY October 02, 2023 12:00am October 08, 2024 8:19am take 1 tablet by nakia th once daily aspirin 81 mg EC tablet Take 1 [...] 500 mg cholecalciferol 0.05 mg oral capsule (12 sources) Vitamin D Start: 07-13-2023 take 1 capsule by mouth once daily Cholecalciferol (Vitamin D3) (Vitamin D3) 50 mcg (2,000 unit) capsule Active 100 ug PO daily July 13, 2023 12:00am Cranberry (12 sources) Non-Standardized Food Allergenic Extract, Non-Standardized Plant Allergenic Extract Start: 10-02-2023 take 1 capsule by mouth once daily Cranberry 500 mg capsule Active 500 mg PO DAILY October 02, 2023 12:00am administer with a meal fluticasone propionate 0.05 mg/actuat metered dose nasal spray (20 sources) Corticosteroid Start: 07-13-2023 End: 04-29-2024 Fluticasone Propionate 50 mcg/actuation spray,suspension Active 2 NMA INTRANASAL DAILY April 29, 2024 11:38am take 1 spray(s) nasal route once daily fluticasone propionate (FLONASE) 50 mcg/actuation nasal spray Administer 1 spray into each nostril 1 (one) time each day. Shake gently. Before first use, prime pump. After use, clean tip and replace cap. Active furosemide 20 mg oral tablet (5 sources) Loop Diuretic Start: 10-17-2024 take 1 tablet by mouth once daily Furosemide (Lasix) 20 mg tablet Active 20 mg PO daily October 17, 2024 12:00am icosapent ethyl 1000 mg oral capsule (5 sources) Start: 10-17-2024 take 2 capsules by mouth twice daily Icosapent Ethyl 1 gram capsule Active 2 g PO TWICE A DAY October 17, 2024 12:00am lisinopril 40 mg oral tablet (14 sources) Angiotensin Converting Enzyme Inhibitor Start: 07-13-2023 take 1 tablet by mouth once daily Lisinopril 40 mg tablet Active 40 mg PO daily July 13, 2023 12:00am take 1 tablet by mouth once joslyn y lisinopriL (PRINIVIL,ZESTRIL) 10 mg tablet Take 1 tablet (10 mg total) by mouth 1 (one) time each day. Active omeprazole 20 mg delayed release oral capsule (14 sources) Proton Pump Inhibitor Start: 07-13-2023 take [...] 08/23/2023 Active amoxicillin 500 mg oral capsule (12 sources) Penicillin-class Antibacterial Start: 09-07-2023 End: 10-02-2023 take 1 capsule by mouth three times daily Amoxicillin 500 mg capsule Discontinued 500 mg PO THREE TIMES A DAY September 07, 2023 12:00am October 02, 2023 1:29pm atorvastatin 10 mg oral tablet (20 sources) HMG-CoA Reductase Inhibitor Start: 10-06-2024 End: 10-08-2024 take 1 tablet by mouth at bedtime Atorvastatin 10 mg tablet Discontinued 10 mg PO AT BEDTIME October 06, 2024 12:00am October 08, 2024 8:19am Start: 05-23-2024 End: 06-19-2024 take 1 tablet by mouth once daily Atorvastatin 80 mg tablet Discontinued 80 mg PO daily 30 3 May 23, 2024 1:00am June 19, 2024 8:47am Start: 07-13-2023 End: 05-23-2024 take 1 tablet by mouth once daily Atorvastatin 10 mg tablet Discontinued 10 mg PO daily July 13, 2023 12:00am May 23, 2024 2:22pm ibuprofen 400 mg oral tablet (12 sources) Nonsteroidal Anti-inflammatory Drug Start: 09-07-2023 End: 10-02-2023 take 2 tablets by mouth once daily Ibuprofen 400 mg tablet Discontinued 800 mg PO DAILY September 07, 2023 12:00am October 02, 2023 1:29pm loratadine 10 mg oral tablet (14 sources) Start: 07-13-2023 End: 05-23-2024 take 1 [...] 03/05/2023 Active simvastatin 20 mg oral tablet (20 sources) HMG-CoA Reductase Inhibitor Start: 10-06-2024 End: [...] Active vitamin e 180 mg oral capsule (12 sources) Start: 07-13-2023 End: 10-08-2024 take 1 capsule by mouth once daily Vitamin E (Dl, Acetate) 180 mg (400 unit) capsule Discontinued 180 mg PO daily July 13, 2023 12:00am October 08, 2024 8:20am Problems Problem Classification Problem Date Documented Date Episodic/Chronic Abdominal pain (1 source) Unspecified abdominal pain; Translations: [Unspecified abdominal pain] Onset: 10-30-2024 Episodic Allergic reactions (2 sources) Allergy status to sulfonamides status; Translations: [Latex allergy status] Onset: 08-14-2023 Episodic Coronary atherosclerosis and other heart disease (17 sources) Coronary arteriosclerosis; Translations: [Atherosclerotic heart disease of [place] coronary artery without angina pectoris] Onset: 05-23-2024 05-23-2024 Chronic Diabetes mellitus without complication (2 sources) Impaired fasting glucose; Translations: [Impaired fasting glucose] Onset: 10-17-2022 Episodic Disorders of lipid metabolism (19 sources) Hyperlipidemia; Translations: [Hyperlipidemia, unspecified] Onset: 05-23-2024 05-23-2024 Chronic Disorders of teeth and jaw (3 sources) Other specified disorders of teeth and supporting structures; Translations: [Other specified disorders of teeth and supporting structures] Onset: 08-14-2023 Episodic Esophageal disorders (12 sources) Gastroesophageal reflux disease; Translations: [Gastro-esophageal reflux [...] antireflux surgery at this time. Essential hypertension (20 sources) Essential (primary) hypertension; Translations: [Hypertensive disorder] Onset: 01-19-2023 05-23-2024 Chronic Comment on above: ON MEDS Genitourinary congenital anomalies (12 sources) Congenital anomaly of the kidney; Translations: [Congenital malformation of kidney, unspecified] Onset: 09-01-2023 04-29-2024 Chronic Comment on above: patient says she has an extra kidney on left side. It is 1/3 size of normal kidney Headache; including migraine (1 source) Pain in face; Translations: [Face pain] 08-20-2023 Episodic Headache; including migraine (1 source) Headache; including migraine; Translations: [Headache, unspecified] Onset: 08-20-2023 Malaise and fatigue (2 sources) Asthenia; Translations: [Weakness] 10-29-2024 Episodic Other aftercare (1 source) Other terminal makeup operator (current) drug therapy; Translations: [Other terminal makeup operator (current) drug therapy] Onset: 08-14-2023 Episodic Other connective tissue disease (1 source) Rhabdomyolysis; Translations: [Rhabdomyolysis] Onset: 10-17-2024 Episodic Other liver diseases (19 sources) Increased creatine kinase level; Translations: [Abnormal levels of other serum enzymes] 10-06-2024 Episodic Other liver diseases (14 sources) Enzyme level - finding; Translations: [Elevated transaminase measurement] 10-16-2024 Episodic Other liver diseases (2 sources) Elevated liver enzymes level; Translations: [Abnormal levels of other serum enzymes] 11-05-2024 Episodic Other liver diseases (1 source) Abnormal levels of other serum enzymes; Translations: [Abnormal levels of other serum enzymes] Onset: 11-19-2024 Episodic Other nutritional; endocrine; and metabolic disorders (1 source) Abnormal weight gain; Translations: [Abnormal weight gain] Onset: 10-28-2024 Episodic Other screening for suspected conditions (not mental disorders or infectious disease) (20 sources) Patient encounter status; Translations: [Encounter for [...] the procedure and post procedure results reporting. Residual codes; unclassified (12 sources) Bilateral lower limb edema; Translations: [Localized edema] 10-16-2024 Episodic Residual codes; unclassified (3 sources) Peripheral edema; Translations: [Localized edema] 10-29-2024 Episodic Residual codes; unclassified (1 source) Localized edema; Translations: [Localized edema] Onset: 10-21-2024 Episodic Thyroid disorders (2 sources) Hypothyroidism, unspecified; Translations: [Hypothyroidism, unspecified] Onset: 01-19-2023 Chronic Unclassified (8 sources) You will need your liver function tests redrawn, a BMP, and a CPK drawn Unclassified (2 sources) Elevation of levels of liver transaminase levels; Translations: [Elevation of levels of liver transaminase levels] Onset: 11-06-2024 Urinary tract infections (20 sources) Acute cystitis; Translations: [Acute cystitis without hematuria] Onset: 03-03-2023 03-03-2023 Episodic Results Test Name Value Interpretation Reference Range Facility Gastroenterology Visit Repor ton 11-05-2024 Gastroenterology Visit Report [facility] Gastroenterology [address] [place] [address] OFFICE VISIT Date of Service: 11/05/24 MR#: [id number] Acct: [id number] Name: TAMARA JOSE Rep #: [id number] 9 : 1970 Provider: Dr. Alexx king MD Age/Sex: 54/F Location[place] [facility] [place] Status: Signed Intake Vital Signs 10/17/24 11:33 11/05/24 13:01 Height 5 ft 8 in 5 ft 8 in Weight: 199 lb 6 oz 192 lb BMI 30.3 29.2 BP 122/75 H 112/76 Blood Pressure Location Lt brachial Lt brachial Position Sitting Sitting Respiration 15 Pulse 101 H 109 H Pulse Source Monitor Monitor Pulse Oximetry (%) 93 93 Oxygen Delivery Method room air room air Intake Visit Reasons: FU Chief Complaint: Elevated Liver Enzymes Allergies bee venom protein (honey bee) Allergy (Severe, Verified 10/17/24 11:37) Anaphylaxis Sulfa (Sulfonamide Antibiotics) Allergy (Severe, Verified 10/17/24 11:37) Anaphylaxis [facility] Medical History (Updated 11/05/24 @ 13:[address] Alexx Castillo MD) Elevated CPK UTI (urinary tract infection) Elevated LFTs Hyperlipidemia Wears hearing aid Post-menopausal History of steroid therapy Gastric reflux Non-smoker History of edema History of stress test Hypertension History of broken leg Kidney anomaly, 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) History of kidney problems delivery delivered Family History Grandmother Breast cancer Father Heart disease Myocardial infarction Mother Pulmonary embolism Social History Smoking Status: Never smoker alcohol intake: never substance use type: does not use HPI HPI Chief Complaint: Elevated Liver Enzymes Details: * TAMARA JOSE, is a 54 F who presents to the office today for hepatology consult for fatty liver and elevated LFTs. [facility] inpatient 7.7 -7.9 for rhabdomyolysis secondary to statin use and elevated liver enzymes. PHM includes HTN, HLD, CAD, GERD. TSH is elevated and recently started on levothyroxine 75 mcg by PCP, Blanquita Lim. She has been on statins for last couple years but from the beginning of this year she was feeling generalized weakness/fatigue and had to exert her for normal walking but she thought she is working 2 jobs that is why she is tired. From [place] she felt like difficulty in getting on steps/walking upstairs and had to push her arms in order to get up from the chair. Imbalance. Social history: Never been a smoker. wine about once or twice in a month for couple years as a teenager. Never been a alcoholic. Denies substance use ROS Const Constitutional: Positive for fatigue, weakness and weight change; No fever(s) ENT ENT: No difficulty swallowing Resp Respiratory: No shortness of breath or wheezing Cardio Cardiology: No chest pain at rest or dyspnea on exertion Gastro GI: Positive for abdominal pain; No belching, bloating, change in bowel habits, change in stool character, coffee ground emesis, constipation, cramping, diarrhea, heartburn, difficulty swallowing, feeling full early, excessive flatus, incontinent of stools, Vomiting blood/hematemesis, Blood in stool, loose stools, Black,tarry stools, nausea/dyspepsia, pain with swallowing, vomiting or other Genitourinary-Female: No difficulty urinating or burning urination Musc Musculoskeletal: Positive for abnormal gait, muscle weakness and stiffness; No joint pain Skin Skin: No yellowing of the eye or itchy eyes Neuro Neurology: Positive for abnormal gait and weakness Psych Psychiatric: No anxiety and No depression Endo Endocrine: Positive for fatigue and weight change Aller/Imm Allergy/Immunologic: No itchy eyes or wheezing Terry/Lymp Hematologic/Lymphatic: No easy bleeding or easy bruising Exam Const General: cooperative, no acute distress and well developed Nutritional Appearance: average body habitus and overweight Orientation: alert, awake and oriented x3 Other: Mainly from fluid. 29.2 kg/m???, body weight 192 pounds HENMT Head: normocephalic and atraumatic Nose: external nose normal Face and sinus: normal facial exam Mouth: moist mucous membranes Eyes Pupils: PERRL EOM: EOM intact bilaterally Neck Neck: normal visual inspection, no meningeal signs and trachea midline Carotids: no bruits Chest Chest palpation inspection: normal inspection of the chest Resp Effort Inspection: normal respiratory effort and symmetric chest movement Auscultation: Bilateral: Clear to Auscultation Cardio Palpation: normal PMI Rate: regular rate Rhythm: regular rhythm Heart Sounds: S1 normal and S2 normal GI Auscultation: normal bowel sounds Percussion: normal to percussion Palpation: soft, no hepatosplenomegaly and no guarding Other: No ascites. No tenderness (more content not included)... Normal [facility] [id number] 11-04-2024 [facility] Misc. COMMENT Normal . [facility] Comment on above: Order Comment: [id number] 9ELF SERUM RF Result Comment: Test Ordered: [id number] Enhanced Liver Fibrosis (ELF) ELF(TM) Score 12.75 [H ] BN Reference Range: <9.80 ELF(TM) Score Interpretation: Risk cut-offs to assess the likelihood of progression to cirrhosis and liver-related clinical events within 3.9 years following baseline ELF score (IQR: 14.0-22.4 months)*: Lower risk < 9.80 Mid risk 9.80 - 11.29 Higher risk >11.29 Note: The ELF(TM) Score is a unitless numerical value. *Almas SA, Alireza VW, Elio T, et al. Selonsertib for patients with bridging fibrosis or compensated cirrhosis due to [place]: Results from randomized phase III STELLAR trials. J Hepatol. 2020 Sep;73(1):26-39. Performed at: [address] [id number] [employer] Teacher: Last Thomson MD, Phone: [phone] Performed at: [facility] [address] [id number] [employer] Teacher: Kevin Prasad PhD, Phone: [phone] Performed By: #### L 504.2610, L501.3620 #### [facility] [address] [place], [place], [id number] Aldolaseon 11-03-2024 ALDOLASE > 56.0 High 3.3-10.3 [facility] Comment on above: Result Comment: Perf ormed at: [address] [id number] [employer] Teacher: Kevin Prasad PhD, Phone: [phone] Performed By: #### L 504.2610, L501.3620 #### [facility] [address] [place], [address] Aldolase ser/plasOrdered By: Christi Shore on 10-30-2024 Aldolase [Catalytic activity/Vol] mU/mL High 3.3-10.3 [facility] Comment on above: Performed at: [address] [id number] Director: Kevin Prasad PhD, Phone: [phone] Thyroid Antibodieson 025 TG AB < 1.0 Normal 0.0-0.9 [facility] Comment on above: Result Comment: Thyr oglobulin Antibody measured by [employer] Methodology It should be noted that the presence of thyroglobulin antibodies may not be pathogenic nor diagnostic, especially at very low levels. The assay deck mechanic has found that four percent of individuals without evidence of thyroid disease or autoimmunity will have positive TgAb levels up to 4 IU/mL. Performed at: [facility] [address] [id number] [employer] Teacher: Kevin Prasad PhD, Phone: [phone] Performed By: #### L 803.2200, L3410.2920, L300.3900, L3400.0700, L3100.5450, L3100.0300, L500.3400, L3100.0460, L3200.1400, L800.1280, L3300.1200 #### [facility] [address] [place], [address] THYR PEROX AB 275 IU/mL High 0-34 [facility] Comment on above: Performed By: #### L 803.2200, L3410.2920, L300.3900, L3400.0700, L3100.5450, L3100.0300, L500.3400, L3100.0460, L3200.1400, L800.1280, L3300.1200 #### [facility] [address] [facility] [place], [address] Lyme Screen W/Reflex WBon LYME SCREEN Ab Negative Normal Negative [facility] Comment on above: Order Comment: ADDED ON AT [facility] FOR QUICKER RESULTS Result Comment: Lyme antibodies not detected. Reflex testing is not indicated. No laboratory evidence of infection with B. burgdorferi (Lyme disease). Negative results may occur in patients recently infected (less than or equal to 14 days) with B. burgdorferi. If recent infection is suspected, repeat testing on a new sample collected in 7 to 14 days is recommended. Performed By: #### L 803.2200, L3410.2920, L300.3900, L3400.0700, L3100.5450, L3100.0300, L500.3400, L3100.0460, L3200.1400, L800.1280, L3300.1200 #### [facility] [address] [place], [address] FERMÍN w/ Reflex Mult Confirmon 10-28-2024 ANTI-DNA (DS)AB TNP Normal [facility] Comment on above: Performed By: #### L 803.2200, L3410.2920, L300.3900, L3400.0700, L3100.5450, L3100.0300, L500.3400, L3100.0460, L3200.1400, L800.1280, L3300.1200 #### [facility] [address] [place], [place], [id number] ANTI-SS-A TNP Normal [facility] Comment on above: Performed By: #### L 803.2200, L3410.2920, L300.3900, L3400.0700, L3100.5450, L3100.0300, L500.3400, L3100.0460, L3200.1400, L800.1280, L3300.1200 #### [facility] [address] [place], [place], [id number] ANTI-SS-B TNP Normal [facility] Comment on above: Performed By: #### L 803.2200, L3410.2920, L300.3900, L3400.0700, L3100.5450, L3100.0300, L500.3400, L3100.0460, L3200.1400, L800.1280, L3300.1200 #### [facility] [address] [place], [place], [id number] ANCAon 10-28-2024 Atypical pANCA <1:20 Normal Neg:<1:20 [facility] Comment on above: Result Comment: The atypical pANCA pattern has been observed in a significant percentage of patients with ulcerative colitis, primary sclerosing cholangitis and autoimmune hepatitis. Performed By: #### L 504.2610, L501.3620 #### [facility] [address] [place], [place], [id number] Cytoplasmic Ab <1:20 Normal Neg:<1:20 [facility] Comment on above: Performed By: #### L 504.2610, L501.3620 #### [facility] [address] [place], [place], [address] Perinuclear Ab. <1:20 Normal Neg:<1:20 [facility] Comment on above: Result Comment: The presence of positive fluorescence exhibiting P-ANCA or C-ANCA patterns alone is not specific for the diagnosis of Ricarda's Granulomatosis (WG) or microscopic polyangiitis. Decisions about treatment should not be based solely on ANCA IFA results. The [employer] ANCA [employer] Consensus recommends follow up testing of positive sera with both WA- 3 and MPO-ANCA enzyme immunoassays. As many as 5% serum samples are positive only by EIA. Ref. AM J Clin Pathol 1999;111:507-513. Performed By: #### L 504.2610, L501.3620 #### [facility] [address] [place], [address] Anti-Smooth Muscle ABSon ANTISMOOTH MUSC 22 Units Abnormal 0-19 [facility] Comment on above: Result Comment: Nega tive 0 - 19 Weak positive 20 - 30 Moderate to strong positive >30 Actin Antibodies are found in 52-85% of patients with autoimmune hepatitis or chronic active hepatitis and in 22% of patients with primary biliary cirrhosis. Performed By: #### L 803.2200, L3410.2920, L300.3900, L3400.0700, L3100.5450, L3100.0300, L500.3400, L3100.0460, L3200.1400, L800.1280, L3300.1200 #### [facility] [address] [place], [address] Ceruloplasminon 10-28-2024 CERULOPLASMIN 21.8 mg/dL Normal 19.0-39.0 [facility] Comment on above: Performed By: #### L 504.2610, L501.3620 #### [facility] [address] [place], [address] Free T3on 10-28-2024 Free T3 [Mass/Vol] 2.7 pg/mL Normal 2.18-3.98 [facility] Comment on above: Performed By: #### L 803.2200, L3410.2920, L300.3900, L3400.0700, L3100.5450, L3100.0300, L500.3400, L3100.0460, L3200.1400, L800.1280, L3300.1200 #### [facility] [address] [place], [place], [id number] Free [id number] By: Mahesh mcfarlane on 10-28-2024 Free T3 [Mass/Vol] 2.7 pg/mL 2.18-3.98 [facility] Hepatitis A AB, Totalon 10-01 HEPATITIS A,TOT Negative Normal Negative [facility] Comment on above: Result Comment: Comm ent: The HAV total antibody assay detects both IgG and IgM but does not differentiate between them. A negative result suggests susceptibility to infection. A positive result could be due to vaccination, previously resolved infection or active infection. Testing for HAV IgM should be performed if active HAV infection is suspected. [employer] offers profiles that will automatically reflex positive HAV total antibody results to IgM (e.g., panel #[id number] HAV Antibody w/ Rfx). Performed at: [facility] [employer] [employer] [address] [id number] [employer] Teacher: Kevin Prasad PhD, Phone: [phone] Performed By: #### L 803.2200, L3410.2920, L300.3900, L3400.0700, L3100.5450, L3100.0300, L500.3400, L3100.0460, L3200.1400, L800.1280, L3300.1200 #### [facility] [address] [place], [place], [address] Hepatitis B Core Ab Totalon 10-28-2024 HEP B CORE,TOT Negative Normal Negative [facility] Comment on above: Performed By: #### L 803.2200, L3410.2920, L300.3900, L3400.0700, L3100.5450, L3100.0300, L500.3400, L3100.0460, L3200.1400, L800.1280, L3300.1200 #### [facility] [address] [place], [address] Immunoglobulin Aon 5 IMMUNOGLOB A QN 248 mg/dL Normal 87-352 [facility] Comment on above: Order Comment: N Performed By: #### L 803.2200, L3410.2920, L300.3900, L3400.0700, L3100.5450, L3100.0300, L500.3400, L3100.0460, L3200.1400, L800.1280, L3300.1200 #### [facility] [address] [place], [address] Serum or plasma thyroperoxid ase antibody assay (units/volume)Ordered By: Mahesh Beam on 10-28-2024 TPO Ab Qn 275 [IU]/mL High 0-34 [facility] T4 Free Directon 10-28-2024 T4 FREE DIRECT 0.90 ng/dL Normal 0.76-1.46 [facility] Comment on above: Performed By: #### L 803.2200, L3410.2920, L300.3900, L3400.0700, L3100.5450, L3100.0300, L500.3400, L3100.0460, L3200.1400, L800.1280, L3300.1200 #### [facility] [address] [place], [address] T4 Total, Thyroxinon 025 T4 [Mass/Vol] 7.8 ug/dL Normal 4.8-13.9 [facility] Comment on above: Performed By: #### L 803.2200, L3410.2920, L300.3900, L3400.0700, L3100.5450, L3100.0300, L500.3400, L3100.0460, L3200.1400, L800.1280, L3300.1200 #### [facility] [address] [place], [address] T4 freeOrdered By: Mahesh B eam on 10-28-2024 Free T4 [Mass/Vol] 0.90 ng/dL 0.76-1.46 [facility] TSH DL <= 0.005 mIU/L QnOrde red By: Zebulun Beam on 10-28-2024 TSH Qn 12.100 uIU/mL High 0.300-4.20 0 [facility] Thyroid Stim Hormone (TSH)on 10-28-2024 TSH 12.100 uIU/mL High 0.300-4.20 0 [facility] Comment on above: Performed By: #### L 803.2200, L3410.2920, L300.3900, L3400.0700, L3100.5450, L3100.0300, L500.3400, L3100.0460, L3200.1400, L800.1280, L3300.1200 #### [facility] [address] [place], [address] ThyroxineOrdered By: Yulun Beam on 10-28-2024 T4 [Mass/Vol] 7.8 ug/dL 4.8-13.9 [facility] t-Transglutaminase IgAon tTG IGA <2 Normal 0-3 [facility] Comment on above: Result Comment: Nega tive 0 - 3 Weak Positive 4 - 10 Positive >10 Tissue Transglutaminase (tTG) has been identified as the endomysial antigen. Studies have demonstr- ated that endomysial IgA antibodies have over 99% specificity for gluten sensitive enteropathy. Performed By: #### L 504.2610, L501.3620 #### [facility] [address] [place], [address] Anti-Mitochondrial ABon 07-2 ANTIMITOCHON AB <20.0 Normal 0.0-20.0 [facility] Comment on above: Result Comment: Nega tive 0.0 - 20.0 Equivocal 20.1 - 24.9 Positive >24.9 Mitochondrial (M2) Antibodies are found in 90-96% of patients with primary biliary cirrhosis. Performed By: #### L 803.2200, L3410.2920, L300.3900, L3400.0700, L3100.5450, L3100.0300, L500.3400, L3100.0460, L3200.1400, L800.1280, L3300.1200 #### [facility] [address] [place], [address] CPK Total, Creatine Kinaseon 10-27-2024 CPK TOTAL 5826 U/L High [facility] Comment on above: Order Comment: THY1 4 [facility],CRP,CPK AND LDHINTERNAL ORDERS FROM ANURADHA AND Performed By: #### L 803.2200, L3410.2920, L300.3900, L3400.0700, L3100.5450, L3100.0300, L500.3400, L3100.0460, L3200.1400, L800.1280, L3300.1200 #### [facility] [address] [place], [address] Anion gap in Serum or Plasma Ordered By: Christi Shore on 10-23-2024 Anion gap [Moles/Vol] 12 mmol/L - [facility] BUN/creatinine ratioOrdered By: Christi Shore on 10-23-2024 Urea nitrogen/Creatinine [Mass ratio] 27.7 mg/mg High 01-19 [facility] Basic Metabolic Profile (BMP )on 10-23-2024 BUN/CRE 27.7 RATIO High 01-19 [facility] Comment on above: Order Comment: PICKER AND PACKER.AT [facility] ORDERED CMP,CRP,AND LDH.INTERNAL ORDERS FROM ANURADHA AND Performed By: #### L 504.2610, L501.3620 #### [facility] [address] [place], [address] Calcium [Mass/Vol] 9.3 mg/dL Normal 7.6-11.0 [facility] Comment on above: Order Comment: PICKER AND PACKER.AT [facility] ORDERED CMP,CRP,AND LDH.INTERNAL ORDERS FROM ANURADHA AND Performed By: #### L 504.2610, L501.3620 #### [facility] [address] [place], [address] Chloride [Moles/Vol] 100 mmol/L Normal 98-108 [facility] Comment on above: Order Comment: PICKER AND PACKER.AT [facility] ORDERED CMP,CRP,AND LDH.INTERNAL ORDERS FROM ANURADHA AND Performed By: #### L 504.2610, L501.3620 #### [facility] [address] [place], [address] CO2 [Moles/Vol] 21.2 mmol/L Normal 21.0-32.0 [facility] Comment on above: Order Comment: PICKER AND PACKER.AT [facility] ORDERED CMP,CRP,AND LDH.INTERNAL ORDERS FROM ANURADHA AND Performed By: #### L 504.2610, L501.3620 #### [facility] [address] [place], [address] Creatinine [Mass/Vol] 0.46 mg/dL Low 0.70-1.20 [facility] Comment on above: Order Comment: PICKER AND PACKER.AT [facility] ORDERED CMP,CRP,AND LDH.INTERNAL ORDERS FROM ANURADHA AND Performed By: #### L 504.2610, L501.3620 #### [facility] [address] [place], [address] GAP 12 Normal 5-15 [facility] Comment on above: Order Comment: PICKER AND PACKER.AT [facility] ORDERED CMP,CRP,AND LDH.INTERNAL ORDERS FROM ANURADHA AND Performed By: #### L 504.2610, L501.3620 #### [facility] [address] [place], [address] GFR/1.73 sq M.predicted among non-blacks MDRD (S/P/Bld) [Vol rate/Area] 113 mL/min/{1.73_m2} Normal >60 [facility] Comment on above: Order Comment: PICKER AND PACKER.AT [facility] ORDERED CMP,CRP,AND LDH.INTERNAL ORDERS FROM ANURADHA AND Result Comment: mL/m in/1.73m2 CKD-EPI Creatinine Equation (2020) Performed By: #### L 504.2610, L501.3620 #### [facility] [address] [place], [address] Glucose [Mass/Vol] 131 mg/dL High 70-99 [facility] Comment on above: Order Comment: PICKER AND PACKER.AT [facility] ORDERED CMP,CRP,AND LDH.INTERNAL ORDERS FROM ANURADHA AND Performed By: #### L 504.2610, L501.3620 #### [facility] [address] [place], [address] Potassium [Moles/Vol] 4.6 mmol/L Normal 3.3-5.1 [facility] Comment on above: Order Comment: PICKER AND PACKER.AT [facility] ORDERED CMP,CRP,AND LDH.INTERNAL ORDERS FROM ANURADHA AND Performed By: #### L 504.2610, L501.3620 #### [facility] [address] [place], [address] Sodium [Moles/Vol] 134 mmol/L Normal 133-145 [facility] Comment on above: Order Comment: PICKER AND PACKER.AT [facility] ORDERED CMP,CRP,AND LDH.INTERNAL ORDERS FROM ANURADHA AND Performed By: #### L 504.2610, L501.3620 #### [facility] [address] [place], [address] Urea nitrogen [Mass/Vol] 13 mg/dL Normal 4-19 [facility] Comment on above: Order Comment: PICKER AND PACKER.AT [facility] ORDERED CMP,CRP,AND LDH.INTERNAL ORDERS FROM ANURADHA AND Performed By: #### L 504.2610, L501.3620 #### [facility] [address] [address] [place], [place], [id number] Bilirubin directOrdered By: Christi Shore on 10-23-2024 Bilirubin.direct [Mass/Vol] 0.19 mg/dL 0.00-0.3 0 [facility] Bilirubin, totalOrdered By: Christi Shore on 10-23-2024 Bilirubin [Mass/Vol] 0.44 mg/dL 0.00-1.30 [facility] CRPon 10-23-2024 C-REACTIVE PROT 8.85 mg/L High 0.0-3.0 [facility] Comment on above: Order Comment: PICKER AND PACKER.AT [facility] ORDERED CMP,CRP,AND LDH.INTERNAL ORDERS FROM ANURADHA AND Performed By: #### L 803.2200, L3410.2920, L300.3900, L3400.0700, L3100.5450, L3100.0300, L500.3400, L3100.0460, L3200.1400, L800.1280, L3300.1200 #### [facility] [address] [facility] [place], [address] Carbon dioxide, total [Moles /volume] in Central venous bloodOrdered By: Christi Shore on 10-23-2024 CO2 [Moles/Vol] 21.2 mmol/L 21.0-32.0 [facility] Chloride assayOrdered By: Randall Shore on 10-23-2024 Chloride [Moles/Vol] 100 mmol/L 98-108 [facility] Ferritinon 10-23-2024 Ferritin [Mass/Vol] 280 ng/mL Normal 22-378 [facility] Comment on above: Order Comment: PICKER AND PACKER.AT [facility] ORDERED CMP,CRP,AND LDH.INTERNAL ORDERS FROM ANURADHA AND Performed By: #### L 803.2200, L3410.2920, L300.3900, L3400.0700, L3100.5450, L3100.0300, L500.3400, L3100.0460, L3200.1400, L800.1280, L3300.1200 #### [facility] [address] [place], [address] Glomerular filtration rate ( GFR) estimation/1.73 sq m using serum, plasma, or whole bOrdered By: Christi Shore on 10-23-2024 GFR/1.73 sq M.predicted among non-blacks MDRD (S/P/Bld) [Vol rate/Area] 113 mL/min/{1.73_m2} >60 [facility] Comment on above: mL/min/1.73m2 CKD-EP I Creatinine Equation (2020) International normalized rat io (INR) calculationOrdered By: Christi Shore on 10-23-2024 INR Coag (Bld) [Relative time] 1.1 {INR} [facility] Iron measurement (mass/mass) Ordered By: Christi Shore on 10-23-2024 Iron (Unsp spec) [Mass/Mass] 63 ug/dL 50-170 [facility] Iron+Iron Binding Capacityon 10-23-2024 Iron [Mass/Vol] 63 ug/dL Normal 50-170 [facility] Comment on above: Order Comment: AT [facility] ORDERED CMP,CRP,AND LDH.INTERNAL ORDERS FROM ANURADHA AND Performed By: #### L 803.2200, L3410.2920, L300.3900, L3400.0700, L3100.5450, L3100.0300, L500.3400, L3100.0460, L3200.1400, L800.1280, L3300.1200 #### [facility] [address] [place], [address] (053 UIBC 200 ug/dL Low 228-428 [facility] Comment on above: Order Comment: AT [facility] ORDERED CMP,CRP,AND LDH.INTERNAL ORDERS FROM ANURADHA AND Performed By: #### L 803.2200, L3410.2920, L300.3900, L3400.0700, L3100.5450, L3100.0300, L500.3400, L3100.0460, L3200.1400, L800.1280, L3300.1200 #### [facility] [address] [place], [address] LDHon 10-23-2024 LDH 1179 U/L High 84-246 [facility] Comment on above: Order Comment: PICKER AND PACKER.AT [facility] ORDERED CMP,CRP,AND LDH.INTERNAL ORDERS FROM ANURADHA AND 1 Performed By: #### L 803.2200, L3410.2920, L300.3900, L3400.0700, L3100.5450, L3100.0300, L500.3400, L3100.0460, L3200.1400, L800.1280, L3300.1200 #### [facility] [address] [place], [address] Laboratory - Chemistry and C hemistry - challengeOrdered By: Christi Shore on 10-23-2024 AST [Catalytic activity/Vol] 472 U/L High <32 [facility] Lactate dehydrogenase (LDH) measurementOrdered By: Christi Shore on 10-23-2024 LDH [Catalytic activity/Vol] 1179 U/L High 84-246 [facility] Liver Profileon 10-23-2024 Albumin [Mass/Vol] 3.3 g/dL Low 3.5-5.0 [facility] Comment on above: Order Comment: PICKER AND PACKER.AT [facility] ORDERED CMP,CRP,AND LDH.INTERNAL ORDERS FROM ANURADHA AND Performed By: #### L 504.2610, L501.3620 #### [facility] [address] [place], [address] ALK PHOS 54 U/L Normal 35-104 [facility] Comment on above: Order Comment: PICKER AND PACKER.AT [facility] ORDERED CMP,CRP,AND LDH.INTERNAL ORDERS FROM PICKER AND PACKER.JANTHONY AND Performed By: #### L 504.2610, L501.3620 #### [facility] [address] [place], [address] ALT [Catalytic activity/Vol] 415 U/L High <=34 [facility] Comment on above: Order Comment: PICKER AND PACKER.AT [facility] ORDERED CMP,CRP,AND LDH.INTERNAL ORDERS FROM ANURADHA AND Performed By: #### L 504.2610, L501.3620 #### [facility] [address] [place], [address] AST [Catalytic activity/Vol] 472 U/L High <=31 [facility] Comment on above: Order Comment: PICKER AND PACKER.AT [facility] ORDERED CMP,CRP,AND LDH.INTERNAL ORDERS FROM ANURADHA AND Performed By: #### L 504.2610, L501.3620 #### [facility] [address] [place], [address] Bilirubin [Mass/Vol] 0.44 mg/dL Normal 0.00-1.30 [facility] Comment on above: Order Comment: PICKER AND PACKER.AT [facility] ORDERED CMP,CRP,AND LDH.INTERNAL ORDERS FROM ANURADHA AND Performed By: #### L 504.2610, L501.3620 #### [facility] [address] [place], [address] Bilirubin.direct [Mass/Vol] 0.19 mg/dL Normal 0.00-0.3 0 [facility] Comment on above: Order Comment: PICKER AND PACKER.AT [facility] ORDERED CMP,CRP,AND LDH.INTERNAL ORDERS FROM ANURADHA AND Performed By: #### L 504.2610, L501.3620 #### [facility] [address] [place], [address] Globulin (S) [Mass/Vol] 2.4 g/dL Normal 2.2-4.2 [facility] Comment on above: Order Comment: PICKER AND PACKER.AT [facility] ORDERED CMP,CRP,AND LDH.INTERNAL ORDERS FROM ANURADHA AND Performed By: #### L 504.2610, L501.3620 #### [facility] [address] [place], [address] T PROT 5.7 g/dL Low 5.9-8.4 [facility] Comment on above: Order Comment: PICKER AND PACKER.AT [facility] ORDERED CMP,CRP,AND LDH.INTERNAL ORDERS FROM ANURADHA AND Performed By: #### L 504.2610, L501.3620 #### [facility] [address] [place], [address] ALB Normal 3.5-5.0 [facility] Comment on above: Result Comment: ADDE D TO C439 Performed By: #### L 803.2200, L3410.2920, L300.3900, L3400.0700, L3100.5450, L3100.0300, L500.3400, L3100.0460, L3200.1400, L800.1280, L3300.1200 #### [facility] [address] [place], [address] ALK PHOS Normal 35-104 [facility] Comment on above: Result Comment: ADDE D TO C439 Performed By: #### L 803.2200, L3410.2920, L300.3900, L3400.0700, L3100.5450, L3100.0300, L500.3400, L3100.0460, L3200.1400, L800.1280, L3300.1200 #### [facility] [address] [place], [address] ALT Normal <=34 [facility] Comment on above: Result Comment: ADDE D TO C439 Performed By: #### L 803.2200, L3410.2920, L300.3900, L3400.0700, L3100.5450, L3100.0300, L500.3400, L3100.0460, L3200.1400, L800.1280, L3300.1200 #### [facility] [address] [place], [address] AST Normal <=31 [facility] Comment on above: Result Comment: ADDE D TO C439 Performed By: #### L 803.2200, L3410.2920, L300.3900, L3400.0700, L3100.5450, L3100.0300, L500.3400, L3100.0460, L3200.1400, L800.1280, L3300.1200 #### [facility] [address] [place], [place], [id number] (415) D BILI Normal 0.00-0.30 [facility] Comment on above: Result Comment: ADDE D TO C439 Performed By: #### L 803.2200, L3410.2920, L300.3900, L3400.0700, L3100.5450, L3100.0300, L500.3400, L3100.0460, L3200.1400, L800.1280, L3300.1200 #### [facility] [address] [place], [place], [id number] (753) T BILI Normal 0.00-1.30 [facility] Comment on above: Result Comment: ADDE D TO C439 Performed By: #### L 803.2200, L3410.2920, L300.3900, L3400.0700, L3100.5450, L3100.0300, L500.3400, L3100.0460, L3200.1400, L800.1280, L3300.1200 #### [facility] [address] [place], [place], [address] (540) T PROT Normal 5.9-8.4 [facility] Comment on above: Result Comment: ADDE D TO C439 Performed By: #### L 803.2200, L3410.2920, L300.3900, L3400.0700, L3100.5450, L3100.0300, L500.3400, L3100.0460, L3200.1400, L800.1280, L3300.1200 #### [facility] [address] [place], [place], [id number] No Panel InformationOrdered By: Christi Shore on 10-23-2024 Unsaturated Iron Binding Capacity 200 ug/dL Low 228-428 [facility] Potassium measurement (mass/ volume)Ordered By: Christi Shore on 10-23-2024 Potassium (Unsp spec) [Mass/Vol] 4.6 mmol/L 3.3-5.1 [facility] Prothrombin Time w/INRon INR Coag (PPP) [Relative time] 1.1 {INR} Normal [facility] Comment on above: Performed By: #### L 803.2200, L3410.2920, L300.3900, L3400.0700, L3100.5450, L3100.0300, L500.3400, L3100.0460, L3200.1400, L800.1280, L3300.1200 #### [facility] [address] [place], [place], [id number] PT Coag (PPP) [Time] 14.2 s Normal 11.7-14.9 [facility] Comment on above: Performed By: #### L 803.2200, L3410.2920, L300.3900, L3400.0700, L3100.5450, L3100.0300, L500.3400, L3100.0460, L3200.1400, L800.1280, L3300.1200 #### [facility] [address] [place], [place], [address] Prothrombin timeOrdered By: Christi Shore on 10-23-2024 PT Coag (PPP) [Time] 14.2 s 11.7-14.9 [facility] Serum DNA double strand anti body assay (units/volume)Ordered By: Christi Shore on 10-23-2024 DNA double strand Ab Qn (S) [facility] Comment on above: Test not performed Serum Scl-70 antibody assay (units/volume)Ordered By: Christi Shore on 10-23-2024 SCL-70 extractable nuclear Ab Qn (S) [facility] Comment on above: Test not performed Serum classic neutrophil cyt oplasmic antibody assay (units/volume)Ordered By: Chrisit Shore on 10-23-2024 Neutrophil cytoplasmic Ab.classic Qn (S) <1:20 titer Neg:<1:20 [facility] Serum creatinine measurement (mass/volume)Ordered By: Christi Shore on 10-23-2024 Creatinine [Mass/Vol] 0.46 mg/dL Low 0.70-1.20 [facility] Serum globulin measurementOr dered By: Christi Shore on 10-23-2024 Globulin (S) [Mass/Vol] 2.4 g/dL 2.2-4.2 [facility] Serum glucose measurement (m ass/volume)Ordered By: Christi Shore on 10-23-2024 Glucose [Mass/Vol] 131 mg/dL High 70-99 [facility] Serum hepatitis B virus core antibody detectionOrdered By: Christi Shore on 10-23-2024 HBV core Ab Ql (S) Negative Negative [facility] Serum mitochondria antibody detectionOrdered By: Christi Shore on 10-23-2024 Mitochondria Ab Ql (S) <20.0 Units 0.0-20.0 [facility] Comment on above: Negative 0.0 - 20.0 Equivocal 20.1 - 24.9 Positive >24.9Mitochondrial (M2) Antibodies are found in 90-96% ofpatients with primary biliary cirrhosis. Serum or plasma C reactive p rotein measurement (mass/volume)Ordered By: Christi Shore on 10-23-2024 CRP [Mass/Vol] 8.85 mg/L High 0.0-3.0 [facility] Serum or plasma IgA measurem ent (mass/volume)Ordered By: Christi Shore on 10-23-2024 IgA [Mass/Vol] 248 mg/dL 87-352 [facility] Serum or plasma actin IgG an tibody assay (units/volume)Ordered By: Christi Shore on 10-23-2024 Actin IgG Qn 22 Units High 0-19 [facility] Comment on above: Negative 0 - 19 Weak positive 20 - 30 Moderate to strong positive >30 Actin Antibodies are found in 52-85% of patients with autoimmune hepatitis or chronic active hepatitis and in 22% of patients with primary biliary cirrhosis. Serum or plasma alanine reynoso otransferase (ALT) measurementOrdered By: Christi Shore on 10-23-2024 ALT [Catalytic activity/Vol] 415 U/L High <35 [facility] Serum or plasma albumin anish urement (mass/volume)Ordered By: Christi Shore on 10-23-2024 Albumin [Mass/Vol] 3.3 g/dL Low 3.5-5.0 [facility] Serum or plasma alkaline brian sphatase measurementOrdered By: Christi Shore on 10-23-2024 ALP [Catalytic activity/Vol] 54 U/L 35-104 [facility] Serum or plasma calcium anish urement (mass/volume)Ordered By: Chrsiti Shore on 10-23-2024 Calcium [Mass/Vol] 9.3 mg/dL 7.6-11.0 [facility] Serum or plasma creatine kin ase activityOrdered By: Christi Shore on 10-23-2024 CK [Catalytic activity/Vol] 5826 U/L High 24-195 [facility] Serum or plasma ferritin alex surement (mass/volume)Ordered By: Christi Shore on 10-23-2024 Ferritin [Mass/Vol] 280 ng/mL 22-378 [facility] Serum or plasma iron saturat ion measurement (mass fraction)Ordered By: Christi Shore on 10-23-2024 Iron saturation [Mass fraction] 24.0 % 13-59 [facility] Serum or plasma urea nitroge n measurement (mass/volume)Ordered By: Christi Shore on 10-23-2024 Urea nitrogen [Mass/Vol] 13 mg/dL 4-19 [facility] Serum perinuclear neutrophil cytoplasmic antibody titer by immunofluorescenceOrdered By: Christi Shore on 10-23-2024 Neutrophil cytoplasmic Ab.perinuclear IF (S) [Titer] <1:20 titer Neg:<1:20 [facility] Comment on above: The presence of posi tive fluorescence exhibiting P-ANCA orC-ANCA patterns alone is not specific for the diagnosis ofWegener's Granulomatosis (WG) or microscopic polyangiitis.Decisions about treatment should not be based solely onANCA IFA results. The [employer] Consensusrecommends follow up testing of positive sera with both WA-3 and MPO-ANCA enzyme immunoassays. As many as 5% serumsamples are positive only by EIA. Ref. AM J Clin Bvkeul6624;111:507-513. Serum tissue transglutaminas e (tTG) IgA antibody assay (units/volume)Ordered By: Christi Shore on 10-23-2024 tTG IgA Qn (S) <2 U/mL 0-3 [facility] Comment on above: Negative 0 - 3 Weak Positive 4 - 10 Positive >10 Tissue Transglutaminase (tTG) has been identified as the endomysial antigen. Studies have demonstr- ated that endomysial IgA antibodies have over 99% specificity for gluten sensitive enteropathy. Sodium levelOrdered By: Moni Shore on 10-23-2024 Sodium [Moles/Vol] 134 mmol/L 133-145 [facility] TSH DL <= 0.005 mIU/L QnOrde red By: Christi Shore on 10-23-2024 TSH Qn 11.200 uIU/mL High 0.300-4.20 0 [facility] Thyroid Stim Hormone (TSH)on 10-23-2024 TSH 11.200 uIU/mL High 0.300-4.20 0 [facility] Comment on above: Order Comment: HUMBERTO KNAPP ORDERED CMP,CRP,AND LDH.INTERNAL ORDERS FROM ANURADHA AND Performed By: #### L 803.2200, L3410.2920, L300.3900, L3400.0700, L3100.5450, L3100.0300, L500.3400, L3100.0460, L3200.1400, L800.1280, L3300.1200 #### [facility] [address] [place], [address] Total proteinOrdered By: Cele Shore on 10-23-2024 Protein [Mass/Vol] 5.7 g/dL Low 5.9-8.4 [facility] Gastroenterology Visit Repor ton 10-17-2024 Gastroenterology Visit Report [facility]astroenterology [address] [place] [address] OFFICE VISIT Date of Service: 10/17/24 MR#: [id number] Acct: [id number] Name: TAMARA JOSE Rep #: [id number] : 1970 Provider: JESSICA medellin Age/Sex: 54/F Location: [facility] Status: Signed Intake Vital Signs 10/16/24 13:51 10/17/24 11:33 Height 5 ft 8 in 5 ft 8 in Weight: 199 lb 6 oz BMI 30.3 BP 122/75 H Blood Pressure Location Lt brachial Position Sitting Respiration 15 Pulse 101 H Pulse Source Monitor Pulse Oximetry (%) 93 Oxygen Delivery Method room air Intake Visit Reasons: ER F ELEVATED LIVER ENZYMES Chief Complaint: Elevated Liver Enzymes Allergies bee venom protein (honey bee) Allergy (Severe, Verified 10/17/24 11:37) Anaphylaxis Sulfa (Sulfonamide Antibiotics) Allergy (Severe, Verified 10/17/24 11:37) Anaphylaxis Medications ???Medication ???Instructions ???Recorded ???Confirmed ???Type cholecalciferol (vitamin D3) 50 100 mcg PO QDAY 07/13/23 10/17/24 History mcg (2,000 unit) capsule (Vitamin D3) lisinopril 40 mg tablet 40 mg PO QDAY 07/13/23 10/17/24 Hi story omeprazole 20 mg capsule,delayed 20 mg PO QDAY 07/13/23 10/17/24 Hi story release cranberry 500 mg capsule 500 mg PO DAILY 10/02/23 10/17/24 History fluticasone propionate 50 2 spray intranasal DAILY 04/29/24 10/17/24 History mcg/actuation nasal spray,suspension amlodipine 10 mg tablet 10 mg PO QDAY 05/23/24 10/17/24 Hi story aspirin 81 mg tablet 81 mg PO QDAY 10/17/24 10/17/24 Hi story furosemide 20 mg tablet (Lasix) 20 mg PO QDAY 10/17/24 10/17/24 Hi story icosapent ethyl 1 gram capsule 2 g PO BID 10/17/24 10/17/24 Histo ry Nurse's Note: Patient is here from a ER follow up due to some high liver enzymes. She originally went into the ER due to the muscle attacks she was getting and they did some lab work and thats when they told her she had high liver enzymes. She has some swelling in her feet and ankles. 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 Rhabdomyolysis-seconda ry to statin use, lab will be rechecked [...] pressure. #5 GERD-patient is on a PPI ER 10/16/2024 54-year-old female with past medical history of HTN, HLD, CAD, GERD presents with bilateral leg edema. She was admitted from 10/06 through 10/08 for rhabdomyolysis secondary to statin use and elevat ed liver enzymes. She was given copious IV fluids. At discharge they discontinued her statin and amlodipine. When going home she states she was edematous with eyelids swelling and some swelling in her feet. She followed up at the [place] [facility] and had repeat labs which looked okay. The swelling in her feet has been worsening. It goes down somewhat overnight but then significantly swells during the day. She took Lasix once last week and once today but does not know the dose. She denies chest pain, shortness of breath, orthopnea but does have a dry cough. ABD US 10/06/2024 Multiple gallstones. Fatty infiltration of the liver. - back in ED yesterday to get Lasix due to BLE edema worsening - she reports she was on a cholesterol medication that she states whiteside (more content not included)... Normal [facility] Absolute lymphocyte countOrd ered By: Suzanna Jordan on 10-16-2024 Lymphocytes Auto (Unsp spec) [#/Vol] 0.75 10*3/uL Low 0.83-4.51 [facility] Absolute neutrophil countOrd ered By: Suzanna Jordan on 10-16-2024 Neutrophils (Bld) [#/Vol] 4.4 10*3/uL 2.0-7.7 [facility] Anion gap in Serum or Plasma Ordered By: Suzanna Jordan on 10-16-2024 Anion gap [Moles/Vol] 10 mmol/L 5-15 [facility] Automated lymphocyte count a s percentage of total leukocytesOrdered By: Suzanna Jordan on 10-16-2024 Lymphocytes/100 WBC Auto (Unsp spec) 12.5 % Low 19-41 [facility] BUN/creatinine ratioOrdered By: Suzanna Jordan on 10-16-2024 Urea nitrogen/Creatinine [Mass ratio] 18.2 mg/mg 10-20 [facility] Basophil percentageOrdered B y: Suzanna Jordan on 10-16-2024 Basophils/100 WBC (Bld) 0.7 % 0-1 [facility] Bilirubin, totalOrdered By: Suzanna Jordan on 10-16-2024 Bilirubin [Mass/Vol] 0.55 mg/dL 0.00-1.30 [facility] CBC W/Diff, Automatedon - Absolute Lymph 0.75 X10 3/uL Low 0.83-4.51 [facility] Comment on above: Performed By: #### L 504.2610, L501.3620 #### [facility] [address] [place], [address] Absolute Neut 4.4 X10 3/uL Normal 2.0-7.7 [facility] Comment on above: Performed By: #### L 504.2610, L501.3620 #### [facility] [address] [place], [address] Basophils/100 WBC (Bld) 0.7 % Normal 0-1 [facility] Comment on above: Performed By: #### L 504.2610, L501.3620 #### [facility] [address] [place], [address] Eosinophils/100 WBC (Bld) 7.2 % High 0-5 [facility] Comment on above: Performed By: #### L 504.2610, L501.3620 #### [facility] [address] [place], [address] Erythrocyte distribution width (RBC) [Ratio] 15.7 % High 11.6-14.6 [facility] Comment on above: Performed By: #### L 504.2610, L501.3620 #### [facility] [address] [place], [address] Hematocrit (Bld) [Volume fraction] 41.7 % Normal 37-47 [facility] Comment on above: Performed By: #### L 504.2610, L501.3620 #### [facility] [address] [place], [address] Hemoglobin (Bld) [Mass/Vol] 14.0 g/dL Normal 12.0-15. 0 [facility] Comment on above: Performed By: #### L 504.2610, L501.3620 #### [facility] [address] [place], [address] IG% 0.200 Normal 0.0-0.9 [facility] Comment on above: Result Comment: IG% - Immature Granulocytes (promyelocytes, myelocytes and metamyelocytes) > 1% indicates that a LEFT SHIFT is Present. Performed By: #### L 504.2610, L501.3620 #### [facility] [address] [place], [address] Lymphocytes/100 WBC (Bld) 12.5 % Low 19-41 [facility] Comment on above: Performed By: #### L 504.2610, L501.3620 #### [facility] [address] [place], [address] MCH (RBC) [Entitic mass] 31.3 pg Normal 27.0-32.0 [facility] Comment on above: Performed By: #### L 504.2610, L501.3620 #### [facility] [address] [place], [address] MCHC (RBC) [Mass/Vol] 33.6 g/dL Normal 32-36 [facility] Comment on above: Performed By: #### L 504.2610, L501.3620 #### [facility] [address] [place], [address] MCV (RBC) [Entitic vol] 93.1 fL Normal 81-99 [facility] Comment on above: Performed By: #### L 504.2610, L501.3620 #### [facility] [address] [place], [address] Monocytes/100 WBC (Bld) 5.5 % Normal 0-10 [facility] Comment on above: Performed By: #### L 504.2610, L501.3620 #### [facility] [address] [place], [address] Neutrophils/100 WBC (Bld) 73.9 % High 47-70 [facility] Comment on above: Performed By: #### L 504.2610, L501.3620 #### [facility] [address] [place], [address] Nucleated RBC (Bld) [#/Vol] 0 10*3/uL Normal 0-5 [facility] Comment on above: Performed By: #### L 504.2610, L501.3620 #### [facility] [address] [place], [address] Platelet mean volume (Bld) [Entitic vol] 11.3 fL Normal 6.2-12.0 [facility] Comment on above: Performed By: #### L 504.2610, L501.3620 #### [facility] [address] [place], [address] Platelets (Bld) [#/Vol] 264 10*3/uL Normal 150-450 [facility] Comment on above: Performed By: #### L 504.2610, L501.3620 #### [facility] [address] [place], [address] RBC (Bld) [#/Vol] 4.48 10*6/uL Normal 4.2-5.4 [facility] Comment on above: Performed By: #### L 504.2610, L501.3620 #### [facility] [address] [place], [address] RDW SD 54.0 fl High 35.1-43.9 [facility] Comment on above: Performed By: #### L 504.2610, L501.3620 #### [facility] [address] [place], [address] WBC (Bld) [#/Vol] 6.0 10*3/uL Normal 4.4-11.0 [facility] Comment on above: Performed By: #### L 504.2610, L501.3620 #### [facility] [address] [place], [address] Carbon dioxide, total [Moles /volume] in Central venous bloodOrdered By: Suzanna Jordan on 10-16-2024 CO2 [Moles/Vol] 25.8 mmol/L 21.0-32.0 [facility] Chest PA and Lateralon 10-16 Chest PA and Lateral [facility] Imaging Services [address] [place] [address] Chest PA and Lateral MR#: [id number] Acct: [id number] Name: TAMARA JOSE Rep #: [id number] : 1970 F 54 From: Misha whitten MD PCP: ALEXA Bob, [employer] Status: REG ER Study: Chest PA and Lateral Date of Exam: 10/16/24 Exam# [id number] Ordering Dr: Suzanna Jordan PROCEDURE: CHEST PA AND LATERAL 10/16/2024 REASON FOR EXAM: EDEMA TECHNIQUE: CHEST PA AND LATERAL COMPARISON: None FINDINGS: Hardware: None Heart: Heart size upper limits of normal. Mediastinum: The mediastinal contour is unremarkable. Lungs: Small left pleural effusion with left basilar infiltration and/or atelectasis. Mild atelectasis at the right lung base. Mild vascular congestion. Bones: Degenerative changes are identified within the thoracic spine. RAD/Chest PA and Lateral IMPRESSION: Heart size is upper limits of normal. Mild vascular congestion with the blunting of the left costophrenic angle and bibasilar atelectasis worse at the left lung base. Reading Location: [facility]-1 CC: [facility] [employer]-Bishnu Lim; BRIAN Acosta Library Assistant: Signed Normal [facility] Chloride assayOrdered By: Rose Jordan on 10-16-2024 Chloride [Moles/Vol] 102 mmol/L 98-108 [facility] Comprehensive Metabolic Prof ilon 10-16-2024 Albumin [Mass/Vol] 3.1 g/dL Low 3.5-5.0 [facility] Comment on above: Performed By: #### L 504.2610, L501.3620 #### [facility] [address] [place], [address] Albumin/Globulin [Mass ratio] 1.2 {ratio} Normal 0.9-2.4 [facility] Comment on above: Performed By: #### L 504.2610, L501.3620 #### [facility] [address] [place], [address] ALK PHOS 54 U/L Normal 35-104 [facility] Comment on above: Performed By: #### L 504.2610, L501.3620 #### [facility] [address] [place], [address] ALT [Catalytic activity/Vol] 390 U/L High <=34 [facility] Comment on above: Performed By: #### L 504.2610, L501.3620 #### [facility] [address] [place], [address] AST [Catalytic activity/Vol] 438 U/L High <=31 [facility] Comment on above: Performed By: #### L 504.2610, L501.3620 #### [facility] [address] [place], [address] Bilirubin [Mass/Vol] 0.55 mg/dL Normal 0.00-1.30 [facility] Comment on above: Performed By: #### L 504.2610, L501.3620 #### [facility] [address] [place], [address] BUN/CRE 18.2 RATIO Normal 10-20 [facility] Comment on above: Performed By: #### L 504.2610, L501.3620 #### [facility] [address] [place], [address] Calcium [Mass/Vol] 9.1 mg/dL Normal 7.6-11.0 [facility] Comment on above: Performed By: #### L 504.2610, L501.3620 #### [facility] [address] [place], [address] Chloride [Moles/Vol] 102 mmol/L Normal 98-108 [facility] Comment on above: Performed By: #### L 504.2610, L501.3620 #### [facility] [address] [place], [address] CO2 [Moles/Vol] 25.8 mmol/L Normal 21.0-32.0 [facility] Comment on above: Performed By: #### L 504.2610, L501.3620 #### [facility] [address] [place], [address] Creatinine [Mass/Vol] 0.44 mg/dL Low 0.70-1.20 [facility] Comment on above: Performed By: #### L 504.2610, L501.3620 #### [facility] [address] [place], [address] ECRCL 171.85 ml/min Normal 50-250 [facility] Comment on above: Performed By: #### L 504.2610, L501.3620 #### [facility] [address] [place], [address] GAP 10 Normal 5-15 [facility] Comment on above: Performed By: #### L 504.2610, L501.3620 #### [facility] [address] [place], [address] GFR/1.73 sq M.predicted among non-blacks MDRD (S/P/Bld) [Vol rate/Area] 114 mL/min/{1.73_m2} Normal >60 [facility] Comment on above: Result Comment: mL/m in/1.73m2 CKD-EPI Creatinine Equation (2020) Performed By: #### L 504.2610, L501.3620 #### [facility] [address] [place], [address] Globulin (S) [Mass/Vol] 2.5 g/dL Normal 2.2-4.2 [facility] Comment on above: Performed By: #### L 504.2610, L501.3620 #### [facility] [address] [place], [address] Glucose [Mass/Vol] 114 mg/dL High 70-99 [facility] Comment on above: Performed By: #### L 504.2610, L501.3620 #### [facility] [address] [place], [address] Potassium [Moles/Vol] 3.8 mmol/L Normal 3.3-5.1 [facility] Comment on above: Performed By: #### L 504.2610, L501.3620 #### [facility] [address] [place], [address] Sodium [Moles/Vol] 138 mmol/L Normal 133-145 [facility] Comment on above: Performed By: #### L 504.2610, L501.3620 #### [facility] [address] [place], [address] T PROT 5.5 g/dL Low 5.9-8.4 [facility] Comment on above: Performed By: #### L 504.2610, L501.3620 #### [facility] [address] [place], [address] Urea nitrogen [Mass/Vol] 8 mg/dL Normal 4-19 [facility] Comment on above: Performed By: #### L 504.2610, L501.3620 #### [facility] [address] [place], [address] Emergency Department Summary on 10-16-2024 Emergency Department Summary [facility] Medical Records Department [address] [place] [address] Emergency Department Summary 10/16/24 MR#: [id number] Acct: [id number] Name: TAMARA JOSE Rep #: [id number] : 1970 54 From: Suzanna TORRES PCP: ALEXA Bob, [employer] Status:DEP ER Location: ED HPI History of Present Illness Chief Complaint: Edema Narrative Narrative: 54-year-old female with past medical history of HTN, HLD, CAD, GERD presents with bilateral leg edema. She was admitted from 10/06 through 10/08 for rhabdomyolysis secondary to statin use and elevated liver enzymes. She was given copious IV fluids. At discharge they discontinued her statin and amlodipine. When going home she states she was edematous with eyelids swelling and some swelling in her feet. She followed up at the [place] [facility] and had repeat labs which looked okay. The swelling in her feet has been worsening. It goes down somewhat overnight but then significantly swells during the day. She took Lasix once last week and once today but does not know the dose. She denies chest pain, shortness of breath, orthopnea but does have a dry cough. [facility] Medical History Hyperlipidemia Wears hearing [...] PO QDAY 07/13/23 10/11/23 Hi story release cranberry 500 mg capsule 500 mg PO DAILY 10/02/23 10/10/23 History fluticasone propionate 50 2 spray intranasal DAILY 04/29/24 Unknown History mcg/actuation nasal spray,suspension amlodipine 10 mg tablet 10 mg PO QDAY 05/23/24 Unknown His tory Allergy/AdvReac Type Severity Reaction Status Date / Time bee venom protein (honey bee) Allergy Severe Anaphylaxis Verified 10/16/24 13:53 Sulfa (Sulfonamide Allergy Severe Anaphylaxis Verified 10/16/24 13:53 Antibiotics) Family History Grandmother Breast cancer Father Heart disease Myocardial infarction Mother Pulmonary embolism Social History Smoking Status: Never smoker alcohol intake: never substance use type: does not use ROS ROS ED ROS Narrative Constitutional: Negative for fever, chills, malaise. CVS: Negative for chest pain. Respiratory: Negative for shortness of breath orthopnea. GI: Negative for abdominal pain, nausea, vomiting. EXAM Physical Exam Narrative Exam Narrative: CONST: Patient sitting in no acute distress. EYES: Normal inspection. NECK: Normal inspection. RESP: No respiratory distress, bibasilar crackles. CVS: Regular rate and rhythm, no murmur, no gallop. ABD: Soft and nontender, no guarding or rebound, nondistended. SKIN: Color normal, no rash, warm, dry, intact. EXTREMITIES: 3+ pitting edema both feet. Chronic venous stasis of the right grady. NEURO: Alert and answering questions appropriately. PSYCH: Normal affect. Const Vital Signs: 10/16/24 13:51 10/16/24 15:27 10/16/24 15:51 Temperature 98.7 F 98.7 F Temperature Source Oral Pulse Rate 105 H 105 H Respiratory Rate 18 18 Respiratory Effort Normal Non-Labored Respiratory Pattern Normal Blood Pressure 135/88 H 135/88 H Blood Pressure Mean 103 103 Pulse Ox 97 97 Oxygen Delivery Method Room Air Physical Exam Const Vital Signs: 10/16/24 13:51 10/16/24 15:27 10/16/24 15:51 Temperature 98.7 F 98.7 F Temperature Source Oral Pulse Rate 105 H 105 H Respiratory Rate 18 18 Respiratory Effort Normal Non-Labored Respiratory Pattern Normal Blood Pressure 135/88 H 135/88 H Blood Pressure Mean 103 103 Pulse Ox 97 97 Oxygen Delivery Method Room Air MDM MDM MDM Narrative Medical decision making narrative: Differential: Fluid overload, congestive heart failure, dependent edema Patient presents with bilateral lower extremity edema that started after receiving lots of IV fluids during recent admission for IV rhabdomyolysis. She is taken 2 doses of Lasix 20 mg from the [place] [facility] without improvement. She appears well and nontoxic. Heart rate 25 with otherwise normal vital signs. She speaking full sentences in no distress. Lung sounds slight bibasilar rales. Sh (more content not included)... Normal [facility] Eosinophil percentageOrdered By: Suzanna Jordan on 10-16-2024 Eosinophils/100 WBC (Bld) 7.2 % High 0-5 [facility] Erythrocyte distribution wid th ratioOrdered By: Suzanna Jordan on 10-16-2024 Erythrocyte distribution width (RBC) [Ratio] 15.7 % High 11.6-14.6 [facility] Erythrocyte distribution wid th standard deviationOrdered By: Suzanna Jordan on 10-16-2024 Erythrocyte distribution width (RBC) [Ratio] 54.0 fl High 35.1-43.9 [facility] Glomerular filtration rate ( GFR) estimation/1.73 sq m using serum, plasma, or whole bOrdered By: Suzanna Jordan on 10-16-2024 GFR/1.73 sq M.predicted among non-blacks MDRD (S/P/Bld) [Vol rate/Area] 114 mL/min/{1.73_m2} >60 [facility] Comment on above: mL/min/1.73m2 CKD-EP I Creatinine Equation (2020) Hematocrit Auto (Bld) [Volum e fraction]Ordered By: Suzanna Jordan on 10-16-2024 Hematocrit (Bld) [Volume fraction] 41.7 % 37-47 [facility] Hemoglobin measurementOrdere d By: Suzanna Jordan on 10-16-2024 Hemoglobin (Bld) [Mass/Vol] 14.0 g/dL 12.0-15. 0 [facility] Immature granulocytes/100 WB C Auto (Bld)Ordered By: Suzanna Jordan on 10-16-2024 Immature granulocytes/100 WBC (Bld) 0.200 % 0.0-0.9 [facility] Comment on above: IG% - Immature Granu locytes (promyelocytes, myelocytes and metamyelocytes) > 1% indicates that a LEFT SHIFT is Present. L503.7505on 10-16-2024 Natriuretic peptide B (Bld) [Mass/Vol] 74 pg/mL Normal <=900 [facility] Comment on above: Result Comment: Hear t Failure Unlikely: < 300 pg/mL Heart Failure Likely < 50 Years: > 450 pg/mL 50-75 Years: > 900 pg/mL >75 Years: > 1800 pg/mL Performed By: #### L 504.2610, L501.3620 #### [facility] [address] [place], [address] Laboratory - Chemistry and C hemistry - challengeOrdered By: Suzanna Jordan on 10-16-2024 AST [Catalytic activity/Vol] 438 U/L High <32 [facility] MCV (mean corpuscular volume ) determinationOrdered By: Suzanna Jordan on 10-16-2024 MCV (RBC) [Entitic vol] 93.1 fL 81-99 [facility] Mean corpuscular hemoglobin (MCH) determinationOrdered By: Suzanna Jordan on 10-16-2024 MCH (RBC) [Entitic mass] 31.3 pg 27.0-32.0 [facility] Mean corpuscular hemoglobin concentration (MCHC) determinationOrdered By: Suzanna Jordan on 10-16-2024 MCHC (RBC) [Mass/Vol] 33.6 g/dL 32-36 [facility] Mean platelet volume determi nationOrdered By: Suzanna Jordan on 10-16-2024 Platelet mean volume (Bld) [Entitic vol] 11.3 fL 6.2-12.0 [facility] Monocyte percentageOrdered B y: Suzanna Jordan on 10-16-2024 Monocytes/100 WBC (Bld) 5.5 % 0-10 [facility] Natriuretic peptide.B prohor jane N-Terminal [Mass/volume] in Serum or PlasmaOrdered By: Suzanna Jordan on 10-16-2024 Natriuretic peptide.B prohormone N-Terminal [Mass/Vol] 74 pg/mL <900 [facility] Comment on above: Heart Failure Unlike ly: < 300 pg/mLHeart Failure Likely< 50 Years: > 450 pg/mL50-75 Years: > 900 pg/mL>75 Years: > 1800 pg/mL Neutrophil percentageOrdered By: Suzanna Jordan on 10-16-2024 Neutrophils/100 WBC (Bld) 73.9 % High 47-70 [facility] Nucleated red blood cell per centageOrdered By: Suzanna Jordan on 10-16-2024 Nucleated RBC/100 WBC (Bld) [Ratio] 0 % 0-5 [facility] Platelet countOrdered By: Rose Jordan on 10-16-2024 Platelets (Bld) [#/Vol] 264 10*3/uL 150-450 [facility] Potassium measurement (mass/ volume)Ordered By: Suzanna Jordan on 10-16-2024 Potassium (Unsp spec) [Mass/Vol] 3.8 mmol/L 3.3-5.1 [facility] RBC Auto (Bld) [#/Vol]Ordere d By: Suzanna Jordan on 10-16-2024 RBC (Bld) [#/Vol] 4.48 10*6/uL 4.2-5.4 [facility] Serum creatinine measurement (mass/volume)Ordered By: Suzanna Jordan on 10-16-2024 Creatinine [Mass/Vol] 0.44 mg/dL Low 0.70-1.20 [facility] Serum globulin measurementOr dered By: Suzanna Jordan on 10-16-2024 Globulin (S) [Mass/Vol] 2.5 g/dL 2.2-4.2 [facility] Serum glucose measurement (m ass/volume)Ordered By: Suzanna Jordan on 10-16-2024 Glucose [Mass/Vol] 114 mg/dL High 70-99 [facility] Serum or plasma alanine reynoso otransferase (ALT) measurementOrdered By: Suzanna Jordan on 10-16-2024 ALT [Catalytic activity/Vol] 390 U/L High <35 [facility] Serum or plasma albumin anish urement (mass/volume)Ordered By: Suzanna Jordan on 10-16-2024 Albumin [Mass/Vol] 3.1 g/dL Low 3.5-5.0 [facility] Serum or plasma albumin/glob ulin mass ratioOrdered By: Suzanna Jordan on 10-16-2024 Albumin/Globulin [Mass ratio] 1.2 {ratio} 0.9-2.4 [facility] Serum or plasma alkaline brian sphatase measurementOrdered By: Suzanna Jordan on 10-16-2024 ALP [Catalytic activity/Vol] 54 U/L 35-104 [facility] Serum or plasma calcium anish urement (mass/volume)Ordered By: Suzanna Jordan on 10-16-2024 Calcium [Mass/Vol] 9.1 mg/dL 7.6-11.0 [facility] Serum or plasma urea nitroge n measurement (mass/volume)Ordered By: Suzanna Jordan on 10-16-2024 Urea nitrogen [Mass/Vol] 8 mg/dL 4-19 [facility] Sodium levelOrdered By: Suzanna Jordan on 10-16-2024 Sodium [Moles/Vol] 138 mmol/L 133-145 [facility] Total proteinOrdered By: Dee Dee Jordan on 10-16-2024 Protein [Mass/Vol] 5.5 g/dL Low 5.9-8.4 [facility] White blood cell (WBC) count Ordered By: Suzanna Jordan on 10-16-2024 WBC (Bld) [#/Vol] 6.0 10*3/uL 4.4-11.0 [facility] CPK Isoenzyme (Ref. Lab)on 0 10-15-2024 CK-BB 0 Normal 0 [facility] Comment on above: Result Comment: Perf ormed at: - [facility] [address] [id number] [employer] Teacher: Kevin Prasad PhD, Phone: [phone] Performed By: #### L 803.2200, L3410.2920, L300.3900, L3400.0700, L3100.5450, L3100.0300, L500.3400, L3100.0460, L3200.1400, L800.1280, L3300.1200 #### [facility] [address] [place], [place], [id number] CK-MM 76 Low 97-100 [facility] Comment on above: Performed By: #### L 803.2200, L3410.2920, L300.3900, L3400.0700, L3100.5450, L3100.0300, L500.3400, L3100.0460, L3200.1400, L800.1280, L3300.1200 #### [facility] [address] [place], [place], [id number] CK.MB [Mass/Vol] 7 ng/mL High 0-3 [facility] Comment on above: Performed By: #### L 803.2200, L3410.2920, L300.3900, L3400.0700, L3100.5450, L3100.0300, L500.3400, L3100.0460, L3200.1400, L800.1280, L3300.1200 #### [facility] [address] [place], [place], [id number] CPK,TOTAL,SERUM 5834 U/L High 32-182 [facility] Comment on above: Result Comment: Resu lts confirmed on dilution. Performed By: #### L 803.2200, L3410.2920, L300.3900, L3400.0700, L3100.5450, L3100.0300, L500.3400, L3100.0460, L3200.1400, L800.1280, L3300.1200 #### [facility] [address] [place], [address] Macro I 17 High Not Observed [facility] Comment on above: Result Comment: Macr o CK Type 1 is a complex of CK-BB and IgG created via an antigen-antibody reaction. It can lead to the false- positive diagnosis of acute myocardial infarction by CK-MB interference in some immunoassay techniques. The clinical relevance of Macro CK Type 1 is not clearly established. It is not associated with a particular type of disease and has been observed with various diseases and in apparently healthy individuals. Myositis, including autoimmune myositis, polymyositis, malignancy-associated dermatomyositis, and drug-induced myositis, has been diagnosed in >50% of the patients with Macro CK Type 1. Performed By: #### L 803.2200, L3410.2920, L300.3900, L3400.0700, L3100.5450, L3100.0300, L500.3400, L3100.0460, L3200.1400, L800.1280, L3300.1200 #### [facility] [address] [facility] [place], [address] Macro II 0 Normal Not Observed [facility] Comment on above: Performed By: #### L 803.2200, L3410.2920, L300.3900, L3400.0700, L3100.5450, L3100.0300, L500.3400, L3100.0460, L3200.1400, L800.1280, L3300.1200 #### [facility] [address] [facility] [address] [facility] [address] [place], [place], [id number] Anion gap in Serum or Plasma Ordered By: Mackenzie Hernandez on 10-13-2024 Anion gap [Moles/Vol] 11 mmol/L - [facility] BUN/creatinine ratioOrdered By: Mackenzie Hernandez on 10-13-2024 Urea nitrogen/Creatinine [Mass ratio] 15.6 mg/mg - [facility] Bilirubin, totalOrdered By: Mackenzie Hernandez on 10-13-2024 Bilirubin [Mass/Vol] 0.61 mg/dL 0.00-1.30 [facility] CPK Total, Creatine Kinaseon 07-14-2025 CPK TOTAL 5541 U/L High 24-195 [facility] Comment on above: Performed By: #### L 803.2200, L3410.2920, L300.3900, L3400.0700, L3100.5450, L3100.0300, L500.3400, L3100.0460, L3200.1400, L800.1280, L3300.1200 #### [facility] [address] [place], [place], [id number] Carbon dioxide, total [Moles /volume] in Central venous bloodOrdered By: Mackenzie Hernandez on 10-13-2024 CO2 [Moles/Vol] 24.6 mmol/L 21.0-32.0 [facility] Chloride assayOrdered By: Wiliam Hernandez on 10-13-2024 Chloride [Moles/Vol] 104 mmol/L 98-108 [facility] Comprehensive Metabolic Prof ilon 10-13-2024 Albumin [Mass/Vol] 3.0 g/dL Low 3.5-5.0 [facility] Comment on above: Performed By: #### L 803.2200, L3410.2920, L300.3900, L3400.0700, L3100.5450, L3100.0300, L500.3400, L3100.0460, L3200.1400, L800.1280, L3300.1200 #### [facility] [address] [place], [place], [id number] Albumin/Globulin [Mass ratio] 1.2 {ratio} Normal 0.9-2.4 [facility] Comment on above: Performed By: #### L 803.2200, L3410.2920, L300.3900, L3400.0700, L3100.5450, L3100.0300, L500.3400, L3100.0460, L3200.1400, L800.1280, L3300.1200 #### [facility] [address] [place], [place], [id number] ALK PHOS 58 U/L Normal 35-104 [facility] Comment on above: Performed By: #### L 803.2200, L3410.2920, L300.3900, L3400.0700, L3100.5450, L3100.0300, L500.3400, L3100.0460, L3200.1400, L800.1280, L3300.1200 #### [facility] [address] [place], [place], [id number] ALT [Catalytic activity/Vol] 416 U/L High <=34 [facility] Comment on above: Performed By: #### L 803.2200, L3410.2920, L300.3900, L3400.0700, L3100.5450, L3100.0300, L500.3400, L3100.0460, L3200.1400, L800.1280, L3300.1200 #### [facility] [address] [place], [address] AST [Catalytic activity/Vol] 432 U/L High <=31 [facility] Comment on above: Performed By: #### L 803.2200, L3410.2920, L300.3900, L3400.0700, L3100.5450, L3100.0300, L500.3400, L3100.0460, L3200.1400, L800.1280, L3300.1200 #### [facility] [address] [place], [address] Bilirubin [Mass/Vol] 0.61 mg/dL Normal 0.00-1.30 [facility] Comment on above: Performed By: #### L 803.2200, L3410.2920, L300.3900, L3400.0700, L3100.5450, L3100.0300, L500.3400, L3100.0460, L3200.1400, L800.1280, L3300.1200 #### [facility] [address] [place], [address] BUN/CRE 15.6 RATIO Normal 10-20 [facility] Comment on above: Performed By: #### L 803.2200, L3410.2920, L300.3900, L3400.0700, L3100.5450, L3100.0300, L500.3400, L3100.0460, L3200.1400, L800.1280, L3300.1200 #### [facility] [address] [place], [address] Calcium [Mass/Vol] 8.8 mg/dL Normal 7.6-11.0 [facility] Comment on above: Performed By: #### L 803.2200, L3410.2920, L300.3900, L3400.0700, L3100.5450, L3100.0300, L500.3400, L3100.0460, L3200.1400, L800.1280, L3300.1200 #### [facility] [address] [place], [place], [phone] Chloride [Moles/Vol] 104 mmol/L Normal 98-108 [facility] Comment on above: Performed By: #### L 803.2200, L3410.2920, L300.3900, L3400.0700, L3100.5450, L3100.0300, L500.3400, L3100.0460, L3200.1400, L800.1280, L3300.1200 #### [facility] [address] [place], [address] CO2 [Moles/Vol] 24.6 mmol/L Normal 21.0-32.0 [facility] Comment on above: Performed By: #### L 803.2200, L3410.2920, L300.3900, L3400.0700, L3100.5450, L3100.0300, L500.3400, L3100.0460, L3200.1400, L800.1280, L3300.1200 #### [facility] [address] [place], [address] Creatinine [Mass/Vol] 0.48 mg/dL Low 0.70-1.20 [facility] Comment on above: Performed By: #### L 803.2200, L3410.2920, L300.3900, L3400.0700, L3100.5450, L3100.0300, L500.3400, L3100.0460, L3200.1400, L800.1280, L3300.1200 #### [facility] [address] [place], [address] GAP 11 Normal 5-15 [facility] Comment on above: Performed By: #### L 803.2200, L3410.2920, L300.3900, L3400.0700, L3100.5450, L3100.0300, L500.3400, L3100.0460, L3200.1400, L800.1280, L3300.1200 #### [facility] [address] [place], [address] GFR/1.73 sq M.predicted among non-blacks MDRD (S/P/Bld) [Vol rate/Area] 112 mL/min/{1.73_m2} Normal >60 [facility] Comment on above: Result Comment: mL/m in/1.73m2 CKD-EPI Creatinine Equation (2020) Performed By: #### L 803.2200, L3410.2920, L300.3900, L3400.0700, L3100.5450, L3100.0300, L500.3400, L3100.0460, L3200.1400, L800.1280, L3300.1200 #### [facility] [address] [place], [address] Globulin (S) [Mass/Vol] 2.6 g/dL Normal 2.2-4.2 [facility] Comment on above: Performed By: #### L 803.2200, L3410.2920, L300.3900, L3400.0700, L3100.5450, L3100.0300, L500.3400, L3100.0460, L3200.1400, L800.1280, L3300.1200 #### [facility] [address] [place], [address] Glucose [Mass/Vol] 147 mg/dL High 70-99 [facility] Comment on above: Performed By: #### L 803.2200, L3410.2920, L300.3900, L3400.0700, L3100.5450, L3100.0300, L500.3400, L3100.0460, L3200.1400, L800.1280, L3300.1200 #### [facility] [address] [place], [address] Potassium [Moles/Vol] 3.5 mmol/L Normal 3.3-5.1 [facility] Comment on above: Performed By: #### L 803.2200, L3410.2920, L300.3900, L3400.0700, L3100.5450, L3100.0300, L500.3400, L3100.0460, L3200.1400, L800.1280, L3300.1200 #### [facility] [address] [place], [address] Sodium [Moles/Vol] 140 mmol/L Normal 133-145 [facility] Comment on above: Performed By: #### L 803.2200, L3410.2920, L300.3900, L3400.0700, L3100.5450, L3100.0300, L500.3400, L3100.0460, L3200.1400, L800.1280, L3300.1200 #### [facility] [address] [place], [address] T PROT 5.5 g/dL Low 5.9-8.4 [facility] Comment on above: Performed By: #### L 803.2200, L3410.2920, L300.3900, L3400.0700, L3100.5450, L3100.0300, L500.3400, L3100.0460, L3200.1400, L800.1280, L3300.1200 #### [facility] [address], [place], [id number] Urea nitrogen [Mass/Vol] 7 mg/dL Normal 4-19 [facility] Comment on above: Performed By: #### L 803.2200, L3410.2920, L300.3900, L3400.0700, L3100.5450, L3100.0300, L500.3400, L3100.0460, L3200.1400, L800.1280, L3300.1200 #### [facility] [address] [place], [address] Glomerular filtration rate ( GFR) estimation/1.73 sq m using serum, plasma, or whole bOrdered By: Mackenzie Hernandez on 10-13-2024 GFR/1.73 sq M.predicted among non-blacks MDRD (S/P/Bld) [Vol rate/Area] 112 mL/min/{1.73_m2} >60 [facility] Comment on above: mL/min/1.73m2 CKD-EP I Creatinine Equation (2020) LDHon 10-13-2024 LDH 1301 U/L High 84-246 [facility] Comment on above: Order Comment: 1 Performed By: #### L 803.2200, L3410.2920, L300.3900, L3400.0700, L3100.5450, L3100.0300, L500.3400, L3100.0460, L3200.1400, L800.1280, L3300.1200 #### [facility] [address] [place], [address] Laboratory - Chemistry and C hemistry - challengeOrdered By: Mackenzie Hernandez on 10-13-2024 AST [Catalytic activity/Vol] 432 U/L High <32 [facility] Lactate dehydrogenase (LDH) measurementOrdered By: Mackenzie Hernandez on 10-13-2024 LDH [Catalytic activity/Vol] 1301 U/L High 84-246 [facility] Potassium measurement (mass/ volume)Ordered By: Mackenzie Hernandez on 10-13-2024 Potassium (Unsp spec) [Mass/Vol] 3.5 mmol/L 3.3-5.1 [facility] Serum creatinine measurement (mass/volume)Ordered By: Mackenzie Hernandez on 10-13-2024 Creatinine [Mass/Vol] 0.48 mg/dL Low 0.70-1.20 [facility] Serum globulin measurementOr dered By: Mackenzie Hernandez on 10-13-2024 Globulin (S) [Mass/Vol] 2.6 g/dL 2.2-4.2 [facility] Serum glucose measurement (m ass/volume)Ordered By: Mackenzie Hernandez on 10-13-2024 Glucose [Mass/Vol] 147 mg/dL High 70-99 [facility] Serum or plasma alanine reynoso otransferase (ALT) measurementOrdered By: Mackenzie Hernandez on 10-13-2024 ALT [Catalytic activity/Vol] 416 U/L High <35 [facility] Serum or plasma albumin anish urement (mass/volume)Ordered By: Mackenzie Hernandez 10-13-2024 Albumin [Mass/Vol] 3.0 g/dL Low 3.5-5.0 [facility] Serum or plasma albumin/glob ulin mass ratioOrdered By: Mackenzie Hernandez 10-13-2024 Albumin/Globulin [Mass ratio] 1.2 {ratio} 0.9-2.4 [facility] Serum or plasma alkaline brian sphatase measurementOrdered By: Mackenzie Hernandez 10-13-2024 ALP [Catalytic activity/Vol] 58 U/L 35-104 [facility] Serum or plasma calcium anish urement (mass/volume)Ordered By: Mackenzie Hernandez 10-13-2024 Calcium [Mass/Vol] 8.8 mg/dL 7.6-11.0 [facility] Serum or plasma creatine kin ase activityOrdered By: Mackenzie Hernandez 10-13-2024 CK [Catalytic activity/Vol] 5541 U/L High 24-195 [facility] Serum or plasma urea nitroge n measurement (mass/volume)Ordered By: Mackenzie Hernandez on 10-13-2024 Urea nitrogen [Mass/Vol] 7 mg/dL 4-19 [facility] Sodium levelOrdered By: Nicole Hernandez on 10-13-2024 Sodium [Moles/Vol] 140 mmol/L 133-145 [facility] Total proteinOrdered By: Arian burnsy David on 10-13-2024 Protein [Mass/Vol] 5.5 g/dL Low 5.9-8.4 [facility] CPK Total, Creatine Kinaseon 10-11-2024 CPK TOTAL 6231 U/L High [facility] Comment on above: Performed By: #### L 803.2200, L3410.2920, L300.3900, L3400.0700, L3100.5450, L3100.0300, L500.3400, L3100.0460, L3200.1400, L800.1280, L3300.1200 #### [facility] [address] [place], [place], [id number] Anion gap in Serum or Plasma Ordered By: Mackenzie Hernandez on 10-10-2024 Anion gap [Moles/Vol] 11 mmol/L 08-14 [facility] BUN/creatinine ratioOrdered By: Mackenzie Hernandez on 10-10-2024 Urea nitrogen/Creatinine [Mass ratio] 13.1 mg/mg 01-19 [facility] Basic Metabolic Profile (BMP )on 10-10-2024 BUN/CRE 13.1 RATIO Normal 01-19 [facility] Comment on above: Performed By: #### L 803.2200, L3410.2920, L300.3900, L3400.0700, L3100.5450, L3100.0300, L500.3400, L3100.0460, L3200.1400, L800.1280, L3300.1200 #### [facility] [address] [place], [place], [id number] Calcium [Mass/Vol] 8.9 mg/dL Normal 7.6-11.0 [facility] Comment on above: Performed By: #### L 803.2200, L3410.2920, L300.3900, L3400.0700, L3100.5450, L3100.0300, L500.3400, L3100.0460, L3200.1400, L800.1280, L3300.1200 #### [facility] [address] [place], [place], [phone] ([phone] Chloride [Moles/Vol] 105 mmol/L Normal 98-108 [facility] Comment on above: Performed By: #### L 803.2200, L3410.2920, L300.3900, L3400.0700, L3100.5450, L3100.0300, L500.3400, L3100.0460, L3200.1400, L800.1280, L3300.1200 #### [facility] [address] [place], [place], [phone] (402) CO2 [Moles/Vol] 23.5 mmol/L Normal 21.0-32.0 [facility] Comment on above: Performed By: #### L 803.2200, L3410.2920, L300.3900, L3400.0700, L3100.5450, L3100.0300, L500.3400, L3100.0460, L3200.1400, L800.1280, L3300.1200 #### [facility] [address] [place], [place], [phone] (436) Creatinine [Mass/Vol] 0.45 mg/dL Low 0.70-1.20 [facility] Comment on above: Performed By: #### L 803.2200, L3410.2920, L300.3900, L3400.0700, L3100.5450, L3100.0300, L500.3400, L3100.0460, L3200.1400, L800.1280, L3300.1200 #### [facility] [address] [place], [place], [phone] Normal 5-15 [facility] Comment on above: Performed By: #### L 803.2200, L3410.2920, L300.3900, L3400.0700, L3100.5450, L3100.0300, L500.3400, L3100.0460, L3200.1400, L800.1280, L3300.1200 #### [facility] [address] [place], [address] GFR/1.73 sq M.predicted among non-blacks MDRD (S/P/Bld) [Vol rate/Area] 114 mL/min/{1.73_m2} Normal >60 [facility] Comment on above: Result Comment: mL/m in/1.73m2 CKD-EPI Creatinine Equation (2020) Performed By: #### L 803.2200, L3410.2920, L300.3900, L3400.0700, L3100.5450, L3100.0300, L500.3400, L3100.0460, L3200.1400, L800.1280, L3300.1200 #### [facility] [address] [place], [address] Glucose [Mass/Vol] 93 mg/dL Normal 70-99 [facility] Comment on above: Performed By: #### L 803.2200, L3410.2920, L300.3900, L3400.0700, L3100.5450, L3100.0300, L500.3400, L3100.0460, L3200.1400, L800.1280, L3300.1200 #### [facility] [address] [place], [address] (508 Potassium [Moles/Vol] 3.5 mmol/L Normal 3.3-5.1 [facility] Comment on above: Performed By: #### L 803.2200, L3410.2920, L300.3900, L3400.0700, L3100.5450, L3100.0300, L500.3400, L3100.0460, L3200.1400, L800.1280, L3300.1200 #### [facility] [address] [facility] [address] [place] [place], [address] Sodium [Moles/Vol] 140 mmol/L Normal 133-145 [facility] Comment on above: Performed By: #### L 803.2200, L3410.2920, L300.3900, L3400.0700, L3100.5450, L3100.0300, L500.3400, L3100.0460, L3200.1400, L800.1280, L3300.1200 #### [facility] [address] [facility] [place], [address] Urea nitrogen [Mass/Vol] 6 mg/dL Normal 4-19 [facility] Comment on above: Performed By: #### L 803.2200, L3410.2920, L300.3900, L3400.0700, L3100.5450, L3100.0300, L500.3400, L3100.0460, L3200.1400, L800.1280, L3300.1200 #### [facility] [address] [facility] [place], [address] Bilirubin directOrdered By: Mackenzie Hernandez on 10-10-2024 Bilirubin.direct [Mass/Vol] 0.29 mg/dL 0.00-0.3 0 [facility] Bilirubin, totalOrdered By: Mackenzie Hernandez on 10-10-2024 Bilirubin [Mass/Vol] 0.64 mg/dL 0.00-1.30 [facility] Carbon dioxide, total [Moles /volume] in Central venous bloodOrdered By: Mackenzie Hernandez on 10-10-2024 CO2 [Moles/Vol] 23.5 mmol/L 21.0-32.0 [facility] Chloride assayOrdered By: Wiliam Hernandez on 10-10-2024 Chloride [Moles/Vol] 105 mmol/L 98-108 [facility] Glomerular filtration rate ( GFR) estimation/1.73 sq m using serum, plasma, or whole bOrdered By: Mackenzie Hernandez on 10-10-2024 GFR/1.73 sq M.predicted among non-blacks MDRD (S/P/Bld) [Vol rate/Area] 114 mL/min/{1.73_m2} >60 [facility] Comment on above: mL/min/1.73m2 CKD-EP I Creatinine Equation (2020) L503.7505on 10-10-2024 Natriuretic peptide B (Bld) [Mass/Vol] 312 pg/mL Normal <=900 [facility] Comment on above: Result Comment: Hear t Failure Unlikely: < 300 pg/mL Heart Failure Likely < 50 Years: > 450 pg/mL 50-75 Years: > 900 pg/mL >75 Years: > 1800 pg/mL Performed By: #### L 803.2200, L3410.2920, L300.3900, L3400.0700, L3100.5450, L3100.0300, L500.3400, L3100.0460, L3200.1400, L800.1280, L3300.1200 #### [facility] [address] [facility] [place], [address] LDHon 10-10-2024 LDH 1317 U/L High 84-246 [facility] Comment on above: Order Comment: 1 Performed By: #### L 803.2200, L3410.2920, L300.3900, L3400.0700, L3100.5450, L3100.0300, L500.3400, L3100.0460, L3200.1400, L800.1280, L3300.1200 #### [facility] [address] [facility] [place], [place], [id number] Laboratory - Chemistry and C hemistry - challengeOrdered By: Mackenzie Hernandez on 10-10-2024 AST [Catalytic activity/Vol] 478 U/L High <32 [facility] Lactate dehydrogenase (LDH) measurementOrdered By: Mackenzie Hernandez on 10-10-2024 LDH [Catalytic activity/Vol] 1317 U/L High 84-246 [facility] Liver Profileon 10-10-2024 Albumin [Mass/Vol] 3.0 g/dL Low 3.5-5.0 [facility] Comment on above: Performed By: #### L 803.2200, L3410.2920, L300.3900, L3400.0700, L3100.5450, L3100.0300, L500.3400, L3100.0460, L3200.1400, L800.1280, L3300.1200 #### [facility] [address] [facility] [place], [address] ALK PHOS 53 U/L Normal 35-104 [facility] Comment on above: Performed By: #### L 803.2200, L3410.2920, L300.3900, L3400.0700, L3100.5450, L3100.0300, L500.3400, L3100.0460, L3200.1400, L800.1280, L3300.1200 #### [facility] [address] [facility] [place], [place], [id number] ALT [Catalytic activity/Vol] 411 U/L High <=34 [facility] Comment on above: Performed By: #### L 803.2200, L3410.2920, L300.3900, L3400.0700, L3100.5450, L3100.0300, L500.3400, L3100.0460, L3200.1400, L800.1280, L3300.1200 #### [facility] [address] [facility] [place], [place], [id number] AST [Catalytic activity/Vol] 478 U/L High <=31 [facility] Comment on above: Performed By: #### L 803.2200, L3410.2920, L300.3900, L3400.0700, L3100.5450, L3100.0300, L500.3400, L3100.0460, L3200.1400, L800.1280, L3300.1200 #### [facility] [address] [facility] [place], [place], [address] Bilirubin [Mass/Vol] 0.64 mg/dL Normal 0.00-1.30 [facility] Comment on above: Performed By: #### L 803.2200, L3410.2920, L300.3900, L3400.0700, L3100.5450, L3100.0300, L500.3400, L3100.0460, L3200.1400, L800.1280, L3300.1200 #### [facility] [address] [place], [address] (248) Bilirubin.direct [Mass/Vol] 0.29 mg/dL Normal 0.00-0.3 0 [facility] Comment on above: Performed By: #### L 803.2200, L3410.2920, L300.3900, L3400.0700, L3100.5450, L3100.0300, L500.3400, L3100.0460, L3200.1400, L800.1280, L3300.1200 #### [facility] [address] [place], [address] Globulin (S) [Mass/Vol] 2.5 g/dL Normal 2.2-4.2 [facility] Comment on above: Performed By: #### L 803.2200, L3410.2920, L300.3900, L3400.0700, L3100.5450, L3100.0300, L500.3400, L3100.0460, L3200.1400, L800.1280, L3300.1200 #### [facility] [address] [place], [address] T PROT 5.5 g/dL Low 5.9-8.4 [facility] Comment on above: Performed By: #### L 803.2200, L3410.2920, L300.3900, L3400.0700, L3100.5450, L3100.0300, L500.3400, L3100.0460, L3200.1400, L800.1280, L3300.1200 #### [facility] [place], [address] Natriuretic peptide.B prohor jane N-Terminal [Mass/volume] in Serum or PlasmaOrdered By: Mackenzie Hernandez on 10-10-2024 Natriuretic peptide.B prohormone N-Terminal [Mass/Vol] 312 pg/mL <900 [facility] Comment on above: Heart Failure Unlike ly: < 300 pg/mLHeart Failure Likely< 50 Years: > 450 pg/mL50-75 Years: > 900 pg/mL>75 Years: > 1800 pg/mL Potassium measurement (mass/ volume)Ordered By: Mackenzie Hernandez on 10-10-2024 Potassium (Unsp spec) [Mass/Vol] 3.5 mmol/L 3.3-5.1 [facility] Serum creatinine measurement (mass/volume)Ordered By: Mackenzie Hernandez on 10-10-2024 Creatinine [Mass/Vol] 0.45 mg/dL Low 0.70-1.20 [facility] Serum globulin measurementOr dered By: Mackenzie Hernandez on 10-10-2024 Globulin (S) [Mass/Vol] 2.5 g/dL 2.2-4.2 [facility] Serum glucose measurement (m ass/volume)Ordered By: Mackenzie Hernandez on 10-10-2024 Glucose [Mass/Vol] 93 mg/dL 70-99 [facility] Serum or plasma alanine reynoso otransferase (ALT) measurementOrdered By: Mackenzie Hernandez on 10-10-2024 ALT [Catalytic activity/Vol] 411 U/L High <35 [facility] Serum or plasma albumin anish urement (mass/volume)Ordered By: Mackenzie Hernandez on 10-10-2024 Albumin [Mass/Vol] 3.0 g/dL Low 3.5-5.0 [facility] Serum or plasma alkaline brian sphatase measurementOrdered By: Mackenzie Hernandez on 10-10-2024 ALP [Catalytic activity/Vol] 53 U/L 35-104 [facility] Serum or plasma calcium anish urement (mass/volume)Ordered By: Mackenzie Hernandez on 10-10-2024 Calcium [Mass/Vol] 8.9 mg/dL 7.6-11.0 [facility] Serum or plasma creatine kin ase BB/total creatine kinase enzymatic activity ratio byOrdered By: Mackenzie Hernandez on 10-10-2024 CK.BB Elph [Catalytic fraction] 0 % 0 [facility] Comment on above: Performed at: [address] [id number] Director: Kevin Prasad PhD, Phone: [phone] Serum or plasma creatine kin ase MB/total creatine kinase enzymatic activity ratio byOrdered By: Mackenzie Hernandez on 10-10-2024 CK.MB Elph [Catalytic fraction] 7 % High 0-3 [facility] Serum or plasma creatine kin ase activityOrdered By: Mackenzie Hernandez on 10-10-2024 CK [Catalytic activity/Vol] 6231 U/L High 24-195 [facility] Serum or plasma macromolecul ar type 1 creatine kinase/total creatine kinase enzymaticOrdered By: Mackenzie Hernandez on 10-10-2024 CK.macromolecular type 1 [Catalytic fraction] 17 % High Not Observed [facility] Comment on above: Macro CK Type 1 is a complex of CK-BB and IgG created viaan antigen-antibody reaction. It can lead to the false-positive diagnosis of acute myocardial infarction by CK-MBinterference in some immunoassay techniques. The clinicalrelevance of Macro CK Type 1 is not clearly established. Itis not associated with a particular type of disease and hasbeen observed with various diseases and in apparentlyhealthy individuals. Myositis, including autoimmunemyositis, polymyositis, malignancy-associateddermatomyositis, and drug-induced myositis, has beendiagnosed in >50% of the patients with Macro CK Type 1. Serum or plasma macromolecul ar type 2 creatine kinase/total creatine kinase enzymaticOrdered By: Mackenzie Hernandez on 10-10-2024 CK.macromolecular type 2 [Catalytic fraction] 0 % Not Observed [facility] Serum or plasma urea nitroge n measurement (mass/volume)Ordered By: Mackenzie Hernandez on 10-10-2024 Urea nitrogen [Mass/Vol] 6 mg/dL 4-19 [facility] Serum total creatine kinase measurementOrdered By: Mackenzie Hernandez on 10-10-2024 CK [Catalytic activity/Vol] 5834 U/L High 32-182 [facility] Comment on above: Results confirmed on dilution. Sodium levelOrdered By: Nicole Hernandez on 10-10-2024 Sodium [Moles/Vol] 140 mmol/L 133-145 [facility] Total proteinOrdered By: Arian Hernandez on 10-10-2024 Protein [Mass/Vol] 5.5 g/dL Low 5.9-8.4 [facility] Bilirubin directOrdered By: Bayron Leal on 10-08-2024 Bilirubin.direct [Mass/Vol] 0.21 mg/dL 0.00-0.3 0 [facility] Bilirubin, totalOrdered By: Bayron Leal on 10-08-2024 Bilirubin [Mass/Vol] 0.44 mg/dL 0.00-1.30 [facility] CPK Total, Creatine Kinaseon 10-08-2024 CPK TOTAL 3464 U/L High 24-195 [facility] Comment on above: Performed By: #### L 803.2200, L3410.2920, L300.3900, L3400.0700, L3100.5450, L3100.0300, L500.3400, L3100.0460, L3200.1400, L800.1280, L3300.1200 #### [facility] [address] [facility] [place], [address] Discharge Instructionon 07 Discharge Instruction [facility] Medical Records Department [address] [place] [address] Instructions for Home/Discharge Instructions 10/08/24 0817 MR#: [id number] Acct: [id number] Name: TAMARA JOSE Rep #: [id number] : 1970 54 From: Bayron Leal DO PCP: ALEXA Bob, [facility] [employer] [facility] Status:ADM IN Discharge Instructions Diet Discharge Diet: [...] QHS Referrals / Follow Up: Blanquita Lim, [employer] [Primary Care Provider] - In 1 Week (You will need your liver function tests redrawn, a BMP, and a CPK drawn) Disposition Disposition (needs filled in before D/C Order can be placed): Home, Self Care 10/08/24 0821 Bayron Leal DO CC: [facility] [employer] [facility] Blanquita Lim; Dr. Estrella Gross MD Signed Normal [facility] Hepatitis Panel Acuteon COMMENT Comment Normal . [facility] Comment on above: Result Comment: Not infected with HCV unless early or acute infection is suspected (which may be delayed in an immunocompromised individual), or other evidence exists to indicate HCV infection. Performed at: [facility] [address] [id number] [employer] Teacher: Kevin Prasad PhD, Phone: [phone] Performed By: #### L 800.8596, X5410.1220, L300.3900, L3400.0700, L3100.5450, L3100.0300, L500.3400, L3100.0460, L3200.1400, L800.1280, L3300.1200 #### [facility] [address] [facility] [place], [address] HEP B CORE,IgM Negative Normal Negative [facility] Comment on above: Performed By: #### L 803.2200, L3410.2920, L300.3900, L3400.0700, L3100.5450, L3100.0300, L500.3400, L3100.0460, L3200.1400, L800.1280, L3300.1200 #### [facility] [address] [place], [address] HEP B SURF AG Negative Normal Negative [facility] Comment on above: Performed By: #### L 803.2200, L3410.2920, L300.3900, L3400.0700, L3100.5450, L3100.0300, L500.3400, L3100.0460, L3200.1400, L800.1280, L3300.1200 #### [facility] [address] [place], [address] HEP C VIRUS AB Non-Reactive Normal Non Reactive [facility] Comment on above: Performed By: #### L 803.2200, L3410.2920, L300.3900, L3400.0700, L3100.5450, L3100.0300, L500.3400, L3100.0460, L3200.1400, L800.1280, L3300.1200 #### [facility] [address] [facility] [place], [address] HEPATITIS A-IgM Negative Normal Negative [facility] Comment on above: Result Comment: A ne gative anti-HAV IgM result suggests no recent or current HAV infection. Performed By: #### L 803.2200, L3410.2920, L300.3900, L3400.0700, L3100.5450, L3100.0300, L500.3400, L3100.0460, L3200.1400, L800.1280, L3300.1200 #### [facility] [address] [place], [address] Laboratory - Chemistry and C hemistry - challengeOrdered By: Bayron Leal on 10-08-2024 AST [Catalytic activity/Vol] 316 U/L High <32 [facility] Liver Profileon 10-08-2024 Albumin [Mass/Vol] 2.7 g/dL Low 3.5-5.0 [facility] Comment on above: Performed By: #### L 803.2200, L3410.2920, L300.3900, L3400.0700, L3100.5450, L3100.0300, L500.3400, L3100.0460, L3200.1400, L800.1280, L3300.1200 #### [facility] [address] [place], [address] ALK PHOS 47 U/L Normal 35-104 [facility] Comment on above: Performed By: #### L 803.2200, L3410.2920, L300.3900, L3400.0700, L3100.5450, L3100.0300, L500.3400, L3100.0460, L3200.1400, L800.1280, L3300.1200 #### [facility] [address] [place], [address] ALT [Catalytic activity/Vol] 295 U/L High <=34 [facility] Comment on above: Performed By: #### L 803.2200, L3410.2920, L300.3900, L3400.0700, L3100.5450, L3100.0300, L500.3400, L3100.0460, L3200.1400, L800.1280, L3300.1200 #### [facility] [address] [place], [address] AST [Catalytic activity/Vol] 316 U/L High <=31 [facility] Comment on above: Performed By: #### L 803.2200, L3410.2920, L300.3900, L3400.0700, L3100.5450, L3100.0300, L500.3400, L3100.0460, L3200.1400, L800.1280, L3300.1200 #### [facility] [address] [place], [address] Bilirubin [Mass/Vol] 0.44 mg/dL Normal 0.00-1.30 [facility] Comment on above: Performed By: #### L 803.2200, L3410.2920, L300.3900, L3400.0700, L3100.5450, L3100.0300, L500.3400, L3100.0460, L3200.1400, L800.1280, L3300.1200 #### [facility] [address] [place], [place], [id number] (375) Bilirubin.direct [Mass/Vol] 0.21 mg/dL Normal 0.00-0.3 0 [facility] Comment on above: Performed By: #### L 803.2200, L3410.2920, L300.3900, L3400.0700, L3100.5450, L3100.0300, L500.3400, L3100.0460, L3200.1400, L800.1280, L3300.1200 #### [facility] [address] [place], [place], [id number] (729) Globulin (S) [Mass/Vol] 2.3 g/dL Normal 2.2-4.2 [facility] Comment on above: Performed By: #### L 803.2200, L3410.2920, L300.3900, L3400.0700, L3100.5450, L3100.0300, L500.3400, L3100.0460, L3200.1400, L800.1280, L3300.1200 #### [facility] [address] [place], [address] T PROT 5.0 g/dL Low 5.9-8.4 [facility] Comment on above: Performed By: #### L 803.2200, L3410.2920, L300.3900, L3400.0700, L3100.5450, L3100.0300, L500.3400, L3100.0460, L3200.1400, L800.1280, L3300.1200 #### [facility] [address] [place], [address] Serum globulin measurementOr dered By: Bayron Leal on 10-08-2024 Globulin (S) [Mass/Vol] 2.3 g/dL 2.2-4.2 [facility] Serum or plasma alanine reynoso otransferase (ALT) measurementOrdered By: Bayron Leal on 10-08-2024 ALT [Catalytic activity/Vol] 295 U/L High <35 [facility] Serum or plasma albumin anish urement (mass/volume)Ordered By: Bayron Leal on 10-08-2024 Albumin [Mass/Vol] 2.7 g/dL Low 3.5-5.0 [facility] Serum or plasma alkaline brian sphatase measurementOrdered By: Bayron Leal on 10-08-2024 ALP [Catalytic activity/Vol] 47 U/L 35-104 [facility] Serum or plasma creatine kin ase activityOrdered By: Bayron Leal on 10-08-2024 CK [Catalytic activity/Vol] 3464 U/L High 24-195 [facility] Total proteinOrdered By: Kristen Leal on 10-08-2024 Protein [Mass/Vol] 5.0 g/dL Low 5.9-8.4 [facility] Urine Cultureon 10-08-2024 URC Escherichia coli Eaton Count >100,000 Escherichia coli: REACTION Ampicillin Islt [...] TMP SMX Islt KATHRYN <=20 S Normal [facility] Comment on above: Performed By: #### L 803.2200, L3410.2920, L300.3900, L3400.0700, L3100.5450, L3100.0300, L500.3400, L3100.0460, L3200.1400, L800.1280, L3300.1200 #### [facility] [address] [place], [place], [id number] Absolute lymphocyte countOrd ered By: Estrella Gross on 10-07-2024 Lymphocytes Auto (Unsp spec) [#/Vol] 0.70 10*3/uL Low 0.83-4.51 [facility] Absolute neutrophil countOrd ered By: Estrella Gross on 10-07-2024 Neutrophils (Bld) [#/Vol] 3.7 10*3/uL 2.0-7.7 [facility] Anion gap in Serum or Plasma Ordered By: Estrella Gross on 10-07-2024 Anion gap [Moles/Vol] 8 mmol/L 5-15 [facility] Automated lymphocyte count a s percentage of total leukocytesOrdered By: Estrella Gross on 10-07-2024 Lymphocytes/100 WBC Auto (Unsp spec) 12.4 % Low 19-41 [facility] BUN/creatinine ratioOrdered By: Estrella Gross on 10-07-2024 Urea nitrogen/Creatinine [Mass ratio] 13.1 mg/mg 10-20 [facility] Basophil percentageOrdered B y: Estrella Gross on 10-07-2024 Basophils/100 WBC (Bld) 0.7 % 0-1 [facility] CBC W/Diff, Automatedon Absolute Lymph 0.70 X10 3/uL Low 0.83-4.51 [facility] Comment on above: Performed By: #### L 803.2200, L3410.2920, L300.3900, L3400.0700, L3100.5450, L3100.0300, L500.3400, L3100.0460, L3200.1400, L800.1280, L3300.1200 #### [facility] [address] [facility] [place], [address] Absolute Neut 3.7 X10 3/uL Normal 2.0-7.7 [facility] Comment on above: Performed By: #### L 803.2200, L3410.2920, L300.3900, L3400.0700, L3100.5450, L3100.0300, L500.3400, L3100.0460, L3200.1400, L800.1280, L3300.1200 #### [facility] [address] [facility] [place], [address] Basophils/100 WBC (Bld) 0.7 % Normal 0-1 [facility] Comment on above: Performed By: #### L 803.2200, L3410.2920, L300.3900, L3400.0700, L3100.5450, L3100.0300, L500.3400, L3100.0460, L3200.1400, L800.1280, L3300.1200 #### [facility] [address] [facility] [place], [address] Eosinophils/100 WBC (Bld) 15.2 % High 0-5 [facility] Comment on above: Performed By: #### L 803.2200, L3410.2920, L300.3900, L3400.0700, L3100.5450, L3100.0300, L500.3400, L3100.0460, L3200.1400, L800.1280, L3300.1200 #### [facility] [address] [facility] [place], [address] Erythrocyte distribution width (RBC) [Ratio] 15.2 % High 11.6-14.6 [facility] Comment on above: Performed By: #### L 803.2200, L3410.2920, L300.3900, L3400.0700, L3100.5450, L3100.0300, L500.3400, L3100.0460, L3200.1400, L800.1280, L3300.1200 #### [facility] [address] [place], [address] Hematocrit (Bld) [Volume fraction] 36.3 % Low 37-47 [facility] Comment on above: Performed By: #### L 803.2200, L3410.2920, L300.3900, L3400.0700, L3100.5450, L3100.0300, L500.3400, L3100.0460, L3200.1400, L800.1280, L3300.1200 #### [facility] [address] [facility] [place], [address] Hemoglobin (Bld) [Mass/Vol] 12.0 g/dL Normal 12.0-15. 0 [facility] Comment on above: Performed By: #### L 803.2200, L3410.2920, L300.3900, L3400.0700, L3100.5450, L3100.0300, L500.3400, L3100.0460, L3200.1400, L800.1280, L3300.1200 #### [facility] [address] [facility] [place], [address] IG% 0.400 Normal 0.0-0.9 [facility] Comment on above: Result Comment: IG% - Immature Granulocytes (promyelocytes, myelocytes and metamyelocytes) > 1% indicates that a LEFT SHIFT is Present. Performed By: #### L 803.2200, L3410.2920, L300.3900, L3400.0700, L3100.5450, L3100.0300, L500.3400, L3100.0460, L3200.1400, L800.1280, L3300.1200 #### [facility] [address] [facility] [place], [address] Lymphocytes/100 WBC (Bld) 12.4 % Low 19-41 [facility] Comment on above: Performed By: #### L 803.2200, L3410.2920, L300.3900, L3400.0700, L3100.5450, L3100.0300, L500.3400, L3100.0460, L3200.1400, L800.1280, L3300.1200 #### [facility] [address] [place], [address] MCH (RBC) [Entitic mass] 31.3 pg Normal 27.0-32.0 [facility] Comment on above: Performed By: #### L 803.2200, L3410.2920, L300.3900, L3400.0700, L3100.5450, L3100.0300, L500.3400, L3100.0460, L3200.1400, L800.1280, L3300.1200 #### [facility] [address] [place], [address] MCHC (RBC) [Mass/Vol] 33.1 g/dL Normal 32-36 [facility] Comment on above: Performed By: #### L 803.2200, L3410.2920, L300.3900, L3400.0700, L3100.5450, L3100.0300, L500.3400, L3100.0460, L3200.1400, L800.1280, L3300.1200 #### [facility] [address] [place], [address] MCV (RBC) [Entitic vol] 94.8 fL Normal 81-99 [facility] Comment on above: Performed By: #### L 803.2200, L3410.2920, L300.3900, L3400.0700, L3100.5450, L3100.0300, L500.3400, L3100.0460, L3200.1400, L800.1280, L3300.1200 #### [facility] [address] [place], [address] Monocytes/100 WBC (Bld) 6.9 % Normal 0-10 [facility] Comment on above: Performed By: #### L 803.2200, L3410.2920, L300.3900, L3400.0700, L3100.5450, L3100.0300, L500.3400, L3100.0460, L3200.1400, L800.1280, L3300.1200 #### [facility] [address] [facility], [address] Neutrophils/100 WBC (Bld) 64.4 % Normal 47-70 [facility] Comment on above: Performed By: #### L 803.2200, L3410.2920, L300.3900, L3400.0700, L3100.5450, L3100.0300, L500.3400, L3100.0460, L3200.1400, L800.1280, L3300.1200 #### [facility] [address] [facility] [place], [address] Nucleated RBC (Bld) [#/Vol] 0 10*3/uL Normal 0-5 [facility] Comment on above: Performed By: #### L 803.2200, L3410.2920, L300.3900, L3400.0700, L3100.5450, L3100.0300, L500.3400, L3100.0460, L3200.1400, L800.1280, L3300.1200 #### [facility] [address] [place], [address] Platelet mean volume (Bld) [Entitic vol] 11.9 fL Normal 6.2-12.0 [facility] Comment on above: Performed By: #### L 803.2200, L3410.2920, L300.3900, L3400.0700, L3100.5450, L3100.0300, L500.3400, L3100.0460, L3200.1400, L800.1280, L3300.1200 #### [facility] [address] [place], [address] ( Platelets (Bld) [#/Vol] 222 10*3/uL Normal 150-450 [facility] Comment on above: Performed By: #### L 803.2200, L3410.2920, L300.3900, L3400.0700, L3100.5450, L3100.0300, L500.3400, L3100.0460, L3200.1400, L800.1280, L3300.1200 #### [facility] [address] [place], [address] ( RBC (Bld) [#/Vol] 3.83 10*6/uL Low 4.2-5.4 [facility] Comment on above: Performed By: #### L 803.2200, L3410.2920, L300.3900, L3400.0700, L3100.5450, L3100.0300, L500.3400, L3100.0460, L3200.1400, L800.1280, L3300.1200 #### [facility] [address] [place], [address] ( RDW SD 52.6 fl High 35.1-43.9 [facility] Comment on above: Performed By: #### L 803.2200, L3410.2920, L300.3900, L3400.0700, L3100.5450, L3100.0300, L500.3400, L3100.0460, L3200.1400, L800.1280, L3300.1200 #### [facility] [address] [place], [address] ( WBC (Bld) [#/Vol] 5.7 10*3/uL Normal 4.4-11.0 [facility] Comment on above: Performed By: #### L 803.2200, L3410.2920, L300.3900, L3400.0700, L3100.5450, L3100.0300, L500.3400, L3100.0460, L3200.1400, L800.1280, L3300.1200 #### [facility] [address] [place], [place], [phone] (191) CPK Total, Creatine Kinaseon 10-07-2024 CPK TOTAL 3084 U/L High 24-195 [facility] Comment on above: Performed By: #### L 803.2200, L3410.2920, L300.3900, L3400.0700, L3100.5450, L3100.0300, L500.3400, L3100.0460, L3200.1400, L800.1280, L3300.1200 #### [facility] [address] [place], [address] Carbon dioxide, total [Moles /volume] in Central venous bloodOrdered By: Estrella Gross on 10-07-2024 CO2 [Moles/Vol] 23.0 mmol/L 21.0-32.0 [facility] Chloride assayOrdered By: Brian Gross on 10-07-2024 Chloride [Moles/Vol] 108 mmol/L 98-108 [facility] Comprehensive Metabolic Prof ilon 10-07-2024 Albumin [Mass/Vol] 2.8 g/dL Low 3.5-5.0 [facility] Comment on above: Performed By: #### L 803.2200, L3410.2920, L300.3900, L3400.0700, L3100.5450, L3100.0300, L500.3400, L3100.0460, L3200.1400, L800.1280, L3300.1200 #### [facility] [address] [place], [place], [phone] (295) Albumin/Globulin [Mass ratio] 1.3 {ratio} Normal 0.9-2.4 [facility] Comment on above: Performed By: #### L 803.2200, L3410.2920, L300.3900, L3400.0700, L3100.5450, L3100.0300, L500.3400, L3100.0460, L3200.1400, L800.1280, L3300.1200 #### [facility] [address] [place], [address] ALK PHOS 46 U/L Normal 35-104 [facility] Comment on above: Performed By: #### L 803.2200, L3410.2920, L300.3900, L3400.0700, L3100.5450, L3100.0300, L500.3400, L3100.0460, L3200.1400, L800.1280, L3300.1200 #### [facility] [address] [facility] [place], [address] ALT [Catalytic activity/Vol] 283 U/L High <=34 [facility] Comment on above: Performed By: #### L 803.2200, L3410.2920, L300.3900, L3400.0700, L3100.5450, L3100.0300, L500.3400, L3100.0460, L3200.1400, L800.1280, L3300.1200 #### [facility] [address] [facility] [place], [address] AST [Catalytic activity/Vol] 325 U/L High <=31 [facility] Comment on above: Performed By: #### L 803.2200, L3410.2920, L300.3900, L3400.0700, L3100.5450, L3100.0300, L500.3400, L3100.0460, L3200.1400, L800.1280, L3300.1200 #### [facility] [address] [facility] [place], [address] Bilirubin [Mass/Vol] 0.50 mg/dL Normal 0.00-1.30 [facility] Comment on above: Performed By: #### L 803.2200, L3410.2920, L300.3900, L3400.0700, L3100.5450, L3100.0300, L500.3400, L3100.0460, L3200.1400, L800.1280, L3300.1200 #### [facility] [address] [place], [address] BUN/CRE 13.1 RATIO Normal 10-20 [facility] Comment on above: Performed By: #### L 803.2200, L3410.2920, L300.3900, L3400.0700, L3100.5450, L3100.0300, L500.3400, L3100.0460, L3200.1400, L800.1280, L3300.1200 #### [facility] [address] [place], [address] Calcium [Mass/Vol] 8.0 mg/dL Normal 7.6-11.0 [facility] Comment on above: Performed By: #### L 803.2200, L3410.2920, L300.3900, L3400.0700, L3100.5450, L3100.0300, L500.3400, L3100.0460, L3200.1400, L800.1280, L3300.1200 #### [facility] [address] [place], [address] Chloride [Moles/Vol] 108 mmol/L Normal 98-108 [facility] Comment on above: Performed By: #### L 803.2200, L3410.2920, L300.3900, L3400.0700, L3100.5450, L3100.0300, L500.3400, L3100.0460, L3200.1400, L800.1280, L3300.1200 #### [facility] [address] [place], [address] CO2 [Moles/Vol] 23.0 mmol/L Normal 21.0-32.0 [facility] Comment on above: Performed By: #### L 803.2200, L3410.2920, L300.3900, L3400.0700, L3100.5450, L3100.0300, L500.3400, L3100.0460, L3200.1400, L800.1280, L3300.1200 #### [facility] [address] [place], [address] Creatinine [Mass/Vol] 0.45 mg/dL Low 0.70-1.20 [facility] Comment on above: Performed By: #### L 803.2200, L3410.2920, L300.3900, L3400.0700, L3100.5450, L3100.0300, L500.3400, L3100.0460, L3200.1400, L800.1280, L3300.1200 #### [facility] [address] [place], [place], [id number] ECRCL 165.51 ml/min Normal 50-250 [facility] Comment on above: Performed By: #### L 803.2200, L3410.2920, L300.3900, L3400.0700, L3100.5450, L3100.0300, L500.3400, L3100.0460, L3200.1400, L800.1280, L3300.1200 #### [facility] [address] [place], [place], [id number] GAP 8 Normal 5-15 [facility] Comment on above: Performed By: #### L 803.2200, L3410.2920, L300.3900, L3400.0700, L3100.5450, L3100.0300, L500.3400, L3100.0460, L3200.1400, L800.1280, L3300.1200 #### [facility] [address] [place], [place], [phone] (855) GFR/1.73 sq M.predicted among non-blacks MDRD (S/P/Bld) [Vol rate/Area] 114 mL/min/{1.73_m2} Normal >60 [facility] Comment on above: Result Comment: mL/m in/1.73m2 CKD-EPI Creatinine Equation (2020) Performed By: #### L 803.2200, L3410.2920, L300.3900, L3400.0700, L3100.5450, L3100.0300, L500.3400, L3100.0460, L3200.1400, L800.1280, L3300.1200 #### [facility] [address] [place], [address] Globulin (S) [Mass/Vol] 2.1 g/dL Low 2.2-4.2 [facility] Comment on above: Performed By: #### L 803.2200, L3410.2920, L300.3900, L3400.0700, L3100.5450, L3100.0300, L500.3400, L3100.0460, L3200.1400, L800.1280, L3300.1200 #### [facility] [address] [place], [address] Glucose [Mass/Vol] 102 mg/dL High 70-99 [facility] Comment on above: Performed By: #### L 803.2200, L3410.2920, L300.3900, L3400.0700, L3100.5450, L3100.0300, L500.3400, L3100.0460, L3200.1400, L800.1280, L3300.1200 #### [facility] [address] [place], [address] Potassium [Moles/Vol] 3.3 mmol/L Normal 3.3-5.1 [facility] Comment on above: Performed By: #### L 803.2200, L3410.2920, L300.3900, L3400.0700, L3100.5450, L3100.0300, L500.3400, L3100.0460, L3200.1400, L800.1280, L3300.1200 #### [facility] [address] [place], [address] Sodium [Moles/Vol] 139 mmol/L Normal 133-145 [facility] Comment on above: Performed By: #### L 803.2200, L3410.2920, L300.3900, L3400.0700, L3100.5450, L3100.0300, L500.3400, L3100.0460, L3200.1400, L800.1280, L3300.1200 #### [facility] [address] [place], [place], [phone] (534) T PROT 4.9 g/dL Low 5.9-8.4 [facility] Comment on above: Performed By: #### L 803.2200, L3410.2920, L300.3900, L3400.0700, L3100.5450, L3100.0300, L500.3400, L3100.0460, L3200.1400, L800.1280, L3300.1200 #### [facility] [address] [facility] [place], [place], [phone] (925) Urea nitrogen [Mass/Vol] 6 mg/dL Normal 4-19 [facility] Comment on above: Performed By: #### L 803.2200, L3410.2920, L300.3900, L3400.0700, L3100.5450, L3100.0300, L500.3400, L3100.0460, L3200.1400, L800.1280, L3300.1200 #### [facility] [address] [facility] [place], [place], [phone] Eosinophil percentageOrdered By: Estrella Gross on 10-07-2024 Eosinophils/100 WBC (Bld) 15.2 % High 0-5 [facility] Erythrocyte distribution wid th ratioOrdered By: Estrella Gross on 10-07-2024 Erythrocyte distribution width (RBC) [Ratio] 15.2 % High 11.6-14.6 [facility] Erythrocyte distribution wid th standard deviationOrdered By: Estrella Gross on 10-07-2024 Erythrocyte distribution width (RBC) [Ratio] 52.6 fl High 35.1-43.9 [facility] Glomerular filtration rate ( GFR) estimation/1.73 sq m using serum, plasma, or whole bOrdered By: Estrella Gross on 10-07-2024 GFR/1.73 sq M.predicted among non-blacks MDRD (S/P/Bld) [Vol rate/Area] 114 mL/min/{1.73_m2} >60 [facility] Comment on above: mL/min/1.73m2 CKD-EP I Creatinine Equation (2020) Hematocrit Auto (Bld) [Volum e fraction]Ordered By: Estrella Gross on 10-07-2024 Hematocrit (Bld) [Volume fraction] 36.3 % Low 37-47 [facility] Hemoglobin measurementOrdere d By: Estrella Gross on 10-07-2024 Hemoglobin (Bld) [Mass/Vol] 12.0 g/dL 12.0-15. 0 [facility] Immature granulocytes/100 WB C Auto (Bld)Ordered By: Estrella Gross on 10-07-2024 Immature granulocytes/100 WBC (Bld) 0.400 % 0.0-0.9 [facility] Comment on above: IG% - Immature Granu locytes (promyelocytes, myelocytes and metamyelocytes) > 1% indicates that a LEFT SHIFT is Present. International normalized rat io (INR) calculationOrdered By: Estrella Gross on 10-07-2024 INR Coag (Bld) [Relative time] 1.2 {INR} [facility] LDHon 10-07-2024 LDH 963 U/L High 84-246 [facility] Comment on above: Performed By: #### L 803.2200, L3410.2920, L300.3900, L3400.0700, L3100.5450, L3100.0300, L500.3400, L3100.0460, L3200.1400, L800.1280, L3300.1200 #### [facility] [address] [place] [address], [phone] Lactate dehydrogenase (LDH) measurementOrdered By: Estrella Gross on 10-07-2024 LDH [Catalytic activity/Vol] 963 U/L High 84-246 [facility] MCV (mean corpuscular volume ) determinationOrdered By: Estrella Gross on 10-07-2024 MCV (RBC) [Entitic vol] 94.8 fL 81-99 [facility] Mean corpuscular hemoglobin (MCH) determinationOrdered By: Estrella Gross on 10-07-2024 MCH (RBC) [Entitic mass] 31.3 pg 27.0-32.0 [facility] Mean corpuscular hemoglobin concentration (MCHC) determinationOrdered By: Estrella Gross on 10-07-2024 MCHC (RBC) [Mass/Vol] 33.1 g/dL 32-36 [facility] Mean platelet volume determi nationOrdered By: Estrella Gross on 10-07-2024 Platelet mean volume (Bld) [Entitic vol] 11.9 fL 6.2-12.0 [facility] Monocyte percentageOrdered B y: Estrella Gross on 10-07-2024 Monocytes/100 WBC (Bld) 6.9 % 0-10 [facility] Neutrophil percentageOrdered By: Estrella Gross on 10-07-2024 Neutrophils/100 WBC (Bld) 64.4 % 47-70 [facility] Nucleated red blood cell per centageOrdered By: Estrella Gross on 10-07-2024 Nucleated RBC/100 WBC (Bld) [Ratio] 0 % 0-5 [facility] Platelet countOrdered By: Brian Gross on 10-07-2024 Platelets (Bld) [#/Vol] 222 10*3/uL 150-450 [facility] Potassium measurement (mass/ volume)Ordered By: Estrella Gross on 10-07-2024 Potassium (Unsp spec) [Mass/Vol] 3.3 mmol/L 3.3-5.1 [facility] Prothrombin Time w/INRon INR Coag (PPP) [Relative time] 1.2 {INR} Normal [facility] Comment on above: Performed By: #### L 803.2200, L3410.2920, L300.3900, L3400.0700, L3100.5450, L3100.0300, L500.3400, L3100.0460, L3200.1400, L800.1280, L3300.1200 #### [facility] [address] [facility] [place], [place], [phone] PT Coag (PPP) [Time] 15.7 s High 11.7-14.9 [facility] Comment on above: Performed By: #### L 803.2200, L3410.2920, L300.3900, L3400.0700, L3100.5450, L3100.0300, L500.3400, L3100.0460, L3200.1400, L800.1280, L3300.1200 #### [facility] [address] [facility] [place], [place], [phone] Prothrombin timeOrdered By: Estrella Gross on 10-07-2024 PT Coag (PPP) [Time] 15.7 s High 11.7-14.9 [facility] RBC Auto (Bld) [#/Vol]Ordere d By: Estrella Gross on 10-07-2024 RBC (Bld) [#/Vol] 3.83 10*6/uL Low 4.2-5.4 [facility] Serum creatinine measurement (mass/volume)Ordered By: Estrella Gross on 10-07-2024 Creatinine [Mass/Vol] 0.45 mg/dL Low 0.70-1.20 [facility] Serum glucose measurement (m ass/volume)Ordered By: Estrella Gross on 10-07-2024 Glucose [Mass/Vol] 102 mg/dL High 70-99 [facility] Serum or plasma albumin/glob ulin mass ratioOrdered By: Estrella Gross on 10-07-2024 Albumin/Globulin [Mass ratio] 1.3 {ratio} 0.9-2.4 [facility] Serum or plasma calcium anish urement (mass/volume)Ordered By: Estrella Gross on 10-07-2024 Calcium [Mass/Vol] 8.0 mg/dL 7.6-11.0 [facility] Serum or plasma urea nitroge n measurement (mass/volume)Ordered By: Estrella Gross on 10-07-2024 Urea nitrogen [Mass/Vol] 6 mg/dL 4-19 [facility] Sodium levelOrdered By: Sharon Gross on 10-07-2024 Sodium [Moles/Vol] 139 mmol/L 133-145 [facility] TSH DL <= 0.005 mIU/L QnOrde red By: Estrella Gross on 10-07-2024 TSH Qn 7.560 uIU/mL High 0.300-4.20 0 [facility] Thyroid Stim Hormone (TSH)on 10-07-2024 TSH 7.560 uIU/mL High 0.300-4.20 0 [facility] Comment on above: Performed By: #### L 803.2200, L3410.2920, L300.3900, L3400.0700, L3100.5450, L3100.0300, L500.3400, L3100.0460, L3200.1400, L800.1280, L3300.1200 #### [facility] [address] [place], [place], [id number] White blood cell (WBC) count Ordered By: Estrella Gross on 10-07-2024 WBC (Bld) [#/Vol] 5.7 10*3/uL 4.4-11.0 [facility] Abdomen Limitedon 10-06-2024 Abdomen Limited [facility] Imaging Services [address] [place], [place] [address] Abdomen Limited MR#: [id number] Acct: [id number] Name: TAMARA JOSE Rep #: [id number] : 1970 F 54 From: Misha whitten MD PCP: Blanquita Lim Bishnu, [employer] Status: REG ER Study: Abdomen Limited Date of Exam: 10/06/24 Exam# [id number] Ordering Dr: Will Silveira DO PROCEDURE: ABDOMEN [...] Fatty infiltration of the liver. Reading Location: [facility] CC: [facility] Blanquita Lim; Dr. Will Silveira DO Library Assistant: Signed Normal [facility] Abdomen/Pelvis W IV Cont ONL Yon 10-06-2024 Abdomen/Pelvis W IV Cont ONLY [facility] Imaging Services [address] [place] [address] Abdomen/Pelvis W IV Cont ONLY MR#: [id number] Acct: [id number] Name: TAMARA JOSE Ivan Rep #: [id number] : 1970 F 54 From: Khang Robb DO PCP: Blanquita Lim [facility], [employer] Status: REG ER Study: Abdomen/Pelvis W IV Cont ONLY Date of Exam: Exam# [id number] Ordering Dr: Will Silveira DO PROCEDURE: ABDOMEN/PELVIS [...] in the abdomen or pelvis. Reading Location: [facility] CC: [facility] [employer] [facility] Lim; Dr. Will Silveira DO Library Assistant: Signed Normal [facility] Absolute lymphocyte countOrd ered By: Will Silveira on 10-06-2024 Lymphocytes Auto (Unsp spec) [#/Vol] 0.49 10*3/uL Low 0.83-4.51 [facility] Absolute neutrophil countOrd ered By: Will Silveira on 10-06-2024 Neutrophils (Bld) [#/Vol] 4.9 10*3/uL 2.0-7.7 [facility] Anion gap in Serum or Plasma Ordered By: Will Silveira on 10-06-2024 Anion gap [Moles/Vol] 11 mmol/L 5-15 [facility] Automated lymphocyte count a s percentage of total leukocytesOrdered By: Will Silveira on 10-06-2024 Lymphocytes/100 WBC Auto (Unsp spec) 7.6 % Low 19-41 [facility] BUN/creatinine ratioOrdered By: Will Silveira on 10-06-2024 Urea nitrogen/Creatinine [Mass ratio] 15.1 mg/mg 10-20 [facility] Basic Metabolic Profile (BMP )on 10-06-2024 BUN/CRE 15.1 RATIO Normal - [facility] Comment on above: Performed By: #### L 803.2200, L3410.2920, L300.3900, L3400.0700, L3100.5450, L3100.0300, L500.3400, L3100.0460, L3200.1400, L800.1280, L3300.1200 #### [facility] [address] [place], [place] [address], [address] Calcium [Mass/Vol] 8.9 mg/dL Normal 7.6-11.0 [facility] Comment on above: Performed By: #### L 803.2200, L3410.2920, L300.3900, L3400.0700, L3100.5450, L3100.0300, L500.3400, L3100.0460, L3200.1400, L800.1280, L3300.1200 #### [facility] [address] [place], [address] Chloride [Moles/Vol] 103 mmol/L Normal 98-108 [facility] Comment on above: Performed By: #### L 803.2200, L3410.2920, L300.3900, L3400.0700, L3100.5450, L3100.0300, L500.3400, L3100.0460, L3200.1400, L800.1280, L3300.1200 #### [facility] [address] [place], [address] CO2 [Moles/Vol] 24.7 mmol/L Normal 21.0-32.0 [facility] Comment on above: Performed By: #### L 803.2200, L3410.2920, L300.3900, L3400.0700, L3100.5450, L3100.0300, L500.3400, L3100.0460, L3200.1400, L800.1280, L3300.1200 #### [facility] [address] [place], [address] Creatinine [Mass/Vol] 0.51 mg/dL Low 0.70-1.20 [facility] Comment on above: Performed By: #### L 803.2200, L3410.2920, L300.3900, L3400.0700, L3100.5450, L3100.0300, L500.3400, L3100.0460, L3200.1400, L800.1280, L3300.1200 #### [facility] [address] [place], [address] ECRCL 146.05 ml/min Normal 50-250 [facility] Comment on above: Performed By: #### L 803.2200, L3410.2920, L300.3900, L3400.0700, L3100.5450, L3100.0300, L500.3400, L3100.0460, L3200.1400, L800.1280, L3300.1200 #### [facility] [address] [place], [address] GAP 11 Normal 5-15 [facility] Comment on above: Performed By: #### L 803.2200, L3410.2920, L300.3900, L3400.0700, L3100.5450, L3100.0300, L500.3400, L3100.0460, L3200.1400, L800.1280, L3300.1200 #### [facility] [address] [facility] [place], [place], [phone] GFR/1.73 sq M.predicted among non-blacks MDRD (S/P/Bld) [Vol rate/Area] 110 mL/min/{1.73_m2} Normal >60 [facility] Comment on above: Result Comment: mL/m in/1.73m2 CKD-EPI Creatinine Equation (2020) Performed By: #### L 803.2200, L3410.2920, L300.3900, L3400.0700, L3100.5450, L3100.0300, L500.3400, L3100.0460, L3200.1400, L800.1280, L3300.1200 #### [facility] [address] [place], [place], [id number] Glucose [Mass/Vol] 110 mg/dL High 70-99 [facility] Comment on above: Performed By: #### L 803.2200, L3410.2920, L300.3900, L3400.0700, L3100.5450, L3100.0300, L500.3400, L3100.0460, L3200.1400, L800.1280, L3300.1200 #### [facility] [address] [facility] [place], [address] Potassium [Moles/Vol] 3.6 mmol/L Normal 3.3-5.1 [facility] Comment on above: Performed By: #### L 803.2200, L3410.2920, L300.3900, L3400.0700, L3100.5450, L3100.0300, L500.3400, L3100.0460, L3200.1400, L800.1280, L3300.1200 #### [facility] [address] [place], [place], [phone] (247) Sodium [Moles/Vol] 139 mmol/L Normal 133-145 [facility] Comment on above: Performed By: #### L 803.2200, L3410.2920, L300.3900, L3400.0700, L3100.5450, L3100.0300, L500.3400, L3100.0460, L3200.1400, L800.1280, L3300.1200 #### [facility] [address] [place], [place], [phone] (312) Urea nitrogen [Mass/Vol] 8 mg/dL Normal 4-19 [facility] Comment on above: Performed By: #### L 803.2200, L3410.2920, L300.3900, L3400.0700, L3100.5450, L3100.0300, L500.3400, L3100.0460, L3200.1400, L800.1280, L3300.1200 #### [facility] [address] [place], [place], [phone] (043) Basophil percentageOrdered B y: Will Silveira on 10-06-2024 Basophils/100 WBC (Bld) 0.6 % 0-1 [facility] Bilirubin Test strip Ql (U)O rdered By: Will Silveira on 10-06-2024 Bilirubin Ql (U) Negative Negative [facility] Bilirubin directOrdered By: Will Silveira on 10-06-2024 Bilirubin.direct [Mass/Vol] 0.36 mg/dL High 0.00-0.3 0 [facility] Bilirubin, totalOrdered By: Will Silveira on 10-06-2024 Bilirubin [Mass/Vol] 0.75 mg/dL 0.00-1.30 [facility] CBC W/Diff, Automatedon Absolute Lymph 0.49 X10 3/uL Low 0.83-4.51 [facility] Comment on above: Performed By: #### L 803.2200, L3410.2920, L300.3900, L3400.0700, L3100.5450, L3100.0300, L500.3400, L3100.0460, L3200.1400, L800.1280, L3300.1200 #### [facility] [address] [place], [place], [phone] Absolute Neut 4.9 X10 3/uL Normal 2.0-7.7 [facility] Comment on above: Performed By: #### L 803.2200, L3410.2920, L300.3900, L3400.0700, L3100.5450, L3100.0300, L500.3400, L3100.0460, L3200.1400, L800.1280, L3300.1200 #### [facility] [address] [place], [address] Basophils/100 WBC (Bld) 0.6 % Normal 0-1 [facility] Comment on above: Performed By: #### L 803.2200, L3410.2920, L300.3900, L3400.0700, L3100.5450, L3100.0300, L500.3400, L3100.0460, L3200.1400, L800.1280, L3300.1200 #### [facility] [address] [place], [address] Eosinophils/100 WBC (Bld) 10.4 % High 0-5 [facility] Comment on above: Performed By: #### L 803.2200, L3410.2920, L300.3900, L3400.0700, L3100.5450, L3100.0300, L500.3400, L3100.0460, L3200.1400, L800.1280, L3300.1200 #### [facility] [address] [place], [address] (111) Erythrocyte distribution width (RBC) [Ratio] 15.0 % High 11.6-14.6 [facility] Comment on above: Performed By: #### L 803.2200, L3410.2920, L300.3900, L3400.0700, L3100.5450, L3100.0300, L500.3400, L3100.0460, L3200.1400, L800.1280, L3300.1200 #### [facility] [address] [place], [place], [phone] (231) Hematocrit (Bld) [Volume fraction] 41.7 % Normal 37-47 [facility] Comment on above: Performed By: #### L 803.2200, L3410.2920, L300.3900, L3400.0700, L3100.5450, L3100.0300, L500.3400, L3100.0460, L3200.1400, L800.1280, L3300.1200 #### [facility] [address] [place], [place], [phone] (308) Hemoglobin (Bld) [Mass/Vol] 13.7 g/dL Normal 12.0-15. 0 [facility] Comment on above: Performed By: #### L 803.2200, L3410.2920, L300.3900, L3400.0700, L3100.5450, L3100.0300, L500.3400, L3100.0460, L3200.1400, L800.1280, L3300.1200 #### [facility] [address] [facility] [place], [address] IG% 0.200 Normal 0.0-0.9 [facility] Comment on above: Result Comment: IG% - Immature Granulocytes (promyelocytes, myelocytes and metamyelocytes) > 1% indicates that a LEFT SHIFT is Present. Performed By: #### L 803.2200, L3410.2920, L300.3900, L3400.0700, L3100.5450, L3100.0300, L500.3400, L3100.0460, L3200.1400, L800.1280, L3300.1200 #### [facility] [address] [facility] [place], [address] Lymphocytes/100 WBC (Bld) 7.6 % Low 19-41 [facility] Comment on above: Performed By: #### L 803.2200, L3410.2920, L300.3900, L3400.0700, L3100.5450, L3100.0300, L500.3400, L3100.0460, L3200.1400, L800.1280, L3300.1200 #### [facility] [address] [facility] [place], [address] MCH (RBC) [Entitic mass] 30.7 pg Normal 27.0-32.0 [facility] Comment on above: Performed By: #### L 803.2200, L3410.2920, L300.3900, L3400.0700, L3100.5450, L3100.0300, L500.3400, L3100.0460, L3200.1400, L800.1280, L3300.1200 #### [facility] [address] [facility] [place], [address] MCHC (RBC) [Mass/Vol] 32.9 g/dL Normal 32-36 [facility] Comment on above: Performed By: #### L 803.2200, L3410.2920, L300.3900, L3400.0700, L3100.5450, L3100.0300, L500.3400, L3100.0460, L3200.1400, L800.1280, L3300.1200 #### [facility] [address] [place], [address] MCV (RBC) [Entitic vol] 93.5 fL Normal 81-99 [facility] Comment on above: Performed By: #### L 803.2200, L3410.2920, L300.3900, L3400.0700, L3100.5450, L3100.0300, L500.3400, L3100.0460, L3200.1400, L800.1280, L3300.1200 #### [facility] [address] [place], [place], [phone] (187) Monocytes/100 WBC (Bld) 5.9 % Normal 0-10 [facility] Comment on above: Performed By: #### L 803.2200, L3410.2920, L300.3900, L3400.0700, L3100.5450, L3100.0300, L500.3400, L3100.0460, L3200.1400, L800.1280, L3300.1200 #### [facility] [address] [place], [address] Neutrophils/100 WBC (Bld) 75.3 % High 47-70 [facility] Comment on above: Performed By: #### L 803.2200, L3410.2920, L300.3900, L3400.0700, L3100.5450, L3100.0300, L500.3400, L3100.0460, L3200.1400, L800.1280, L3300.1200 #### [facility] [address] [place], [address] Nucleated RBC (Bld) [#/Vol] 0 10*3/uL Normal 0-5 [facility] Comment on above: Performed By: #### L 803.2200, L3410.2920, L300.3900, L3400.0700, L3100.5450, L3100.0300, L500.3400, L3100.0460, L3200.1400, L800.1280, L3300.1200 #### [facility] [address] [place], [place], [phone] (187) Platelet mean volume (Bld) [Entitic vol] 11.6 fL Normal 6.2-12.0 [facility] Comment on above: Performed By: #### L 803.2200, L3410.2920, L300.3900, L3400.0700, L3100.5450, L3100.0300, L500.3400, L3100.0460, L3200.1400, L800.1280, L3300.1200 #### [facility] [address] [place], [place], [phone] (603) Platelets (Bld) [#/Vol] 247 10*3/uL Normal 150-450 [facility] Comment on above: Performed By: #### L 803.2200, L3410.2920, L300.3900, L3400.0700, L3100.5450, L3100.0300, L500.3400, L3100.0460, L3200.1400, L800.1280, L3300.1200 #### [facility] [address] [place], [place], [phone] (534) RBC (Bld) [#/Vol] 4.46 10*6/uL Normal 4.2-5.4 [facility] Comment on above: Performed By: #### L 803.2200, L3410.2920, L300.3900, L3400.0700, L3100.5450, L3100.0300, L500.3400, L3100.0460, L3200.1400, L800.1280, L3300.1200 #### [facility] [address] [place], [address] RDW SD 52.3 fl High 35.1-43.9 [facility] Comment on above: Performed By: #### L 803.2200, L3410.2920, L300.3900, L3400.0700, L3100.5450, L3100.0300, L500.3400, L3100.0460, L3200.1400, L800.1280, L3300.1200 #### [facility] [address] [place], [address] WBC (Bld) [#/Vol] 6.4 10*3/uL Normal 4.4-11.0 [facility] Comment on above: Performed By: #### L 803.2200, L3410.2920, L300.3900, L3400.0700, L3100.5450, L3100.0300, L500.3400, L3100.0460, L3200.1400, L800.1280, L3300.1200 #### [facility] [address] [place], [address] CPK Total, Creatine Kinaseon 10-06-2024 CPK TOTAL 5727 U/L High 24-195 [facility] Comment on above: Performed By: #### L 504.2610, L501.3620 #### [facility] [address] [facility] [place], [address] Carbon dioxide, total [Moles /volume] in Central venous bloodOrdered By: Will Silveira on 10-06-2024 CO2 [Moles/Vol] 24.7 mmol/L 21.0-32.0 [facility] Chloride assayOrdered By: Du Silveira on 10-06-2024 Chloride [Moles/Vol] 103 mmol/L 98-108 [facility] Emergency Department Summary on 10-06-2024 Emergency Department Summary [facility] Medical Records Department [address] [place] [address] Emergency Department Summary 10/06/24 MR#: [id number] Acct: [id number] Name: TAMARA JOSE Rep #: [id number] : 1970 54 From: Will Silveira DO PCP: ALEXA Bob, [employer] Status:REG ER Location: ED HPI History of [...] intact Psych: Cooperative, appropriate mood and affect [facility] Medical History Hyperlipidemia Wears hearing [...] infection, kishor (more content not included)... Normal [facility] Eosinophil percentageOrdered By: [facility] on 10-06-2024 Eosinophils/100 WBC (Bld) 10.4 % High 0-5 [facility] Erythrocyte distribution wid th ratioOrdered By: Caromont Healtht on 10-06-2024 Erythrocyte distribution width (RBC) [Ratio] 15.0 % High 11.6-14.6 [facility] Erythrocyte distribution wid th standard deviationOrdered By: [facility] on 10-06-2024 Erythrocyte distribution width (RBC) [Ratio] 52.3 fl High 35.1-43.9 [facility] Glomerular filtration rate ( GFR) estimation/1.73 sq m using serum, plasma, or whole bOrdered By: [facility] on 10-06-2024 GFR/1.73 sq M.predicted among non-blacks MDRD (S/P/Bld) [Vol rate/Area] 110 mL/min/{1.73_m2} >60 [facility] Comment on above: mL/min/1.73m2 CKD-EP I Creatinine Equation (2020) H AND P Exam - [facility] 10-06-2024 H&P Exam - Hospitalist [facility] Medical Records Department [address] [place] [address] H P Exam - Hospitalist 10/06/24 1727 MR#: [id number] Acct: [id number] Name: TAMARA JOSE Ivan Rep #: [id number] : 1970 54 From: Estrella Gross MD PCP: ALEXA Bob, [employer] Status:REG ER Location: ED HPI - General General Date of Admission: 10/06/24 Date of Service: 10/06/24 Chief Complaint: Weakness, fatigue, aching muscles HPI Narrative TAMARA JOSE, is a 54-year-old female history of GERD, hypertension, hyperlipidemia who presented to [facility] ED 10/06/2024 with abdominal pain and nausea. [...] at present actually feeling little bit better [facility] Medical History Hyperlipidemia Wears hearing aid Post-menopausal [...] breath C (more content not included)... Normal [facility] Hematocrit Auto (Bld) [Volum e fraction]Ordered By: Will Silveira on 10-06-2024 Hematocrit (Bld) [Volume fraction] 41.7 % 37-47 [facility] Hemoglobin measurementOrdere d By: Will Silveira on 10-06-2024 Hemoglobin (Bld) [Mass/Vol] 13.7 g/dL 12.0-15. 0 [facility] Hyaline casts LM.LPF (Urine sed) [#/Area]Ordered By: Willmadison Silveira on 10-06-2024 Hyaline casts (Urine sed) [#/Area] 0 /[LPF] 0-5 [facility] Immature granulocytes/100 WB C Auto (Bld)Ordered By: Willmadison Silveira on 10-06-2024 Immature granulocytes/100 WBC (Bld) 0.200 % 0.0-0.9 [facility] Comment on above: IG% - Immature Granu locytes (promyelocytes, myelocytes and metamyelocytes) > 1% indicates that a LEFT SHIFT is Present. Influenza virus A and B and SARS-CoV-2 (COVID-19) and Respiratory syncytial virus RNAOrdered By: Will Silveira on 10-06-2024 SARS-CoV-2 (COVID-19) RNA ALISON+probe Ql (Unsp spec) [facility] Ketones Test strip Ql (U)Ord ered By: Will Silveira on 10-06-2024 Ketones Ql (U) Negative Negative [facility] LDHon 10-06-2024 LDH 1314 U/L High 84-246 [facility] Comment on above: Performed By: #### L 504.2610, L501.3620 #### [facility] [address] [place], [place], [id number] Laboratory - Chemistry and C hemistry - challengeOrdered By: Will Silveira on 10-06-2024 AST [Catalytic activity/Vol] 458 U/L High <32 [facility] Lactate dehydrogenase (LDH) measurementOrdered By: Will Silveira on 10-06-2024 LDH [Catalytic activity/Vol] 1314 U/L High 84-246 [facility] Lipaseon 10-06-2024 Lipase [Catalytic activity/Vol] 28 U/L Normal 13-75 [facility] Comment on above: Result Comment: Cornelius ace note: LIPASE revised reference range effective 22. New Lipase methodology. Expected to produce lower values than the previous assay method. NEW Reference Range: 13 - 75 U/L Performed By: #### L 803.2200, L3410.2920, L300.3900, L3400.0700, L3100.5450, L3100.0300, L500.3400, L3100.0460, L3200.1400, L800.1280, L3300.1200 #### [facility] [address] [facility] [address] [place], [place], [phone] Lipase measurementOrdered By : Will Silveira on 10-06-2024 Lipase [Catalytic activity/Vol] 28 U/L 13-75 [facility] Comment on above: Please note:LIPASE r evised reference range effective 22. New Lipase methodology. Expected to produce lower values than the previous assay method. NEW Reference Range: 13 - 75 U/L Liver Profileon 10-06-2024 Albumin [Mass/Vol] 3.5 g/dL Normal 3.5-5.0 [facility] Comment on above: Performed By: #### L 803.2200, L3410.2920, L300.3900, L3400.0700, L3100.5450, L3100.0300, L500.3400, L3100.0460, L3200.1400, L800.1280, L3300.1200 #### [facility] [address] [place], [place], [phone] (401) ALK PHOS 56 U/L Normal 35-104 [facility] Comment on above: Performed By: #### L 803.2200, L3410.2920, L300.3900, L3400.0700, L3100.5450, L3100.0300, L500.3400, L3100.0460, L3200.1400, L800.1280, L3300.1200 #### [facility] [address] [place], [place], [phone] (533) ALT [Catalytic activity/Vol] 404 U/L High <=34 [facility] Comment on above: Performed By: #### L 803.2200, L3410.2920, L300.3900, L3400.0700, L3100.5450, L3100.0300, L500.3400, L3100.0460, L3200.1400, L800.1280, L3300.1200 #### [facility] [address] [place], [place], [phone] (963) AST [Catalytic activity/Vol] 458 U/L High <=31 [facility] Comment on above: Performed By: #### L 803.2200, L3410.2920, L300.3900, L3400.0700, L3100.5450, L3100.0300, L500.3400, L3100.0460, L3200.1400, L800.1280, L3300.1200 #### [facility] [address] [facility] [place], [address] (822) Bilirubin [Mass/Vol] 0.75 mg/dL Normal 0.00-1.30 [facility] Comment on above: Performed By: #### L 803.2200, L3410.2920, L300.3900, L3400.0700, L3100.5450, L3100.0300, L500.3400, L3100.0460, L3200.1400, L800.1280, L3300.1200 #### [facility] [address] [facility] [place], [address] Bilirubin.direct [Mass/Vol] 0.36 mg/dL High 0.00-0.3 0 [facility] Comment on above: Performed By: #### L 803.2200, L3410.2920, L300.3900, L3400.0700, L3100.5450, L3100.0300, L500.3400, L3100.0460, L3200.1400, L800.1280, L3300.1200 #### [facility] [address] [place], [address] Globulin (S) [Mass/Vol] 2.6 g/dL Normal 2.2-4.2 [facility] Comment on above: Performed By: #### L 803.2200, L3410.2920, L300.3900, L3400.0700, L3100.5450, L3100.0300, L500.3400, L3100.0460, L3200.1400, L800.1280, L3300.1200 #### [facility] [address] [facility] [place], [address] T PROT 6.1 g/dL Normal 5.9-8.4 [facility] Comment on above: Performed By: #### L 803.2200, L3410.2920, L300.3900, L3400.0700, L3100.5450, L3100.0300, L500.3400, L3100.0460, L3200.1400, L800.1280, L3300.1200 #### [facility] [address] [facility] [place], [address] M100.678on 10-06-2024 M100.678 Pending SARS-CoV-2 (COVID 19) Negative INFLUENZA A Negative INFLUENZA B Negative RSV PCR Negative Normal [facility] Comment on above: Performed By: #### L 803.2200, L3410.2920, L300.3900, L3400.0700, L3100.5450, L3100.0300, L500.3400, L3100.0460, L3200.1400, L800.1280, L3300.1200 #### [facility] [address] [facility] [place], [address] MCV (mean corpuscular volume ) determinationOrdered By: Will Silveira on 10-06-2024 MCV (RBC) [Entitic vol] 93.5 fL 81-99 [facility] Mean corpuscular hemoglobin (MCH) determinationOrdered By: Will Silveira on 10-06-2024 MCH (RBC) [Entitic mass] 30.7 pg 27.0-32.0 [facility] Mean corpuscular hemoglobin concentration (MCHC) determinationOrdered By: Will Silveira on 10-06-2024 MCHC (RBC) [Mass/Vol] 32.9 g/dL 32-36 [facility] Mean platelet volume determi nationOrdered By: Will Silveira on 10-06-2024 Platelet mean volume (Bld) [Entitic vol] 11.6 fL 6.2-12.0 [facility] Microscopic analysis of urin e for red blood cells (RBC)Ordered By: Will Silveira on 10-06-2024 Microscopic analysis of urine for red blood cells (RBC) 5-10 SEEN /hpf 0-5 [facility] Monocyte percentageOrdered B y: Will Silveira on 10-06-2024 Monocytes/100 WBC (Bld) 5.9 % 0-10 [facility] Mucus LM Ql (Urine sed)Order ed By: Will Silveira on 10-06-2024 Mucus Ql (Urine sed) 0 SEEN /hpf [facility] Neutrophil percentageOrdered By: Will Raoul on 10-06-2024 Neutrophils/100 WBC (Bld) 75.3 % High 47-70 [facility] Nitrite Test strip Ql (U)Ord ered By: Will Silveira on 10-06-2024 Nitrite Ql (U) Positive High Negative [facility] No Panel InformationOrdered By: Estrella Gross on 10-06-2024 Hepatitis C Antibody Comment Comment . [facility] Comment on above: Not infected with HC V unless early or acute infection issuspected (which may be delayed in an immunocompromisedindividual), or other evidence exists to indicate HCVinfection.Performed at: [facility] [id number] Director: Kevin Prasad PhD, Phone: [phone] Nucleated red blood cell per centageOrdered By: Will Silveira on 10-06-2024 Nucleated RBC/100 WBC (Bld) [Ratio] 0 % 0-5 [facility] Platelet countOrdered By: Du Silveira on 10-06-2024 Platelets (Bld) [#/Vol] 247 10*3/uL 150-450 [facility] Potassium measurement (mass/ volume)Ordered By: Will Silveira on 10-06-2024 Potassium (Unsp spec) [Mass/Vol] 3.6 mmol/L 3.3-5.1 [facility] Protein Test strip Ql (U)Ord ered By: Will Silveira on 10-06-2024 Protein Ql (U) 30 mg/dl High Negative [facility] RBC Auto (Bld) [#/Vol]Ordere d By: Will Silveira on 10-06-2024 RBC (Bld) [#/Vol] 4.46 10*6/uL 4.2-5.4 [facility] Serum creatinine measurement (mass/volume)Ordered By: Will Silveira on 10-06-2024 Creatinine [Mass/Vol] 0.51 mg/dL Low 0.70-1.20 [facility] Serum globulin measurementOr dered By: Will Silveira on 10-06-2024 Globulin (S) [Mass/Vol] 2.6 g/dL 2.2-4.2 [facility] Serum glucose measurement (m ass/volume)Ordered By: Will Silveira on 10-06-2024 Glucose [Mass/Vol] 110 mg/dL High 70-99 [facility] Serum or plasma alanine reynoso otransferase (ALT) measurementOrdered By: Will Silveira on 10-06-2024 ALT [Catalytic activity/Vol] 404 U/L High <35 [facility] Serum or plasma albumin anish urement (mass/volume)Ordered By: Will Atwood on 10-06-2024 Albumin [Mass/Vol] 3.5 g/dL 3.5-5.0 [facility] Serum or plasma alkaline brian sphatase measurementOrdered By: Will Silveira on 10-06-2024 ALP [Catalytic activity/Vol] 56 U/L 35-104 [facility] Serum or plasma calcium anish urement (mass/volume)Ordered By: Will Atwood on 10-06-2024 Calcium [Mass/Vol] 8.9 mg/dL 7.6-11.0 [facility] Serum or plasma creatine kin ase activityOrdered By: Will Silveira on 10-06-2024 CK [Catalytic activity/Vol] 5727 U/L High 24-195 [facility] Serum or plasma hepatitis B virus surface antigen detection by immunoassayOrdered By: Estrella Gross on 10-06-2024 HBV surface Ag IA Ql Negative Negative [facility] Serum or plasma urea nitroge n measurement (mass/volume)Ordered By: Will Silveira on 10-06-2024 Urea nitrogen [Mass/Vol] 8 mg/dL 4-19 [facility] Sodium levelOrdered By: Beka Silveira on 10-06-2024 Sodium [Moles/Vol] 139 mmol/L 133-145 [facility] Squamous epithelial cells de tection in urine sediment by light microscopyOrdered By: Will Silveira on 10-06-2024 Epithelial cells.squamous LM Ql (Urine sed) 5-10 SEEN /hpf 5-10 [facility] Total proteinOrdered By: Mg Silveira on 10-06-2024 Protein [Mass/Vol] 6.1 g/dL 5.9-8.4 [facility] Urinalysis, Completeon 10-06 CAST,HYALINE 0-5 SEEN Normal 0-5 [facility] Comment on above: Order Comment: COLOR OF URINE MAY AFFECT DIPSTICK RESULTS.CLEAN CATCH Performed By: #### L 803.2200, L3410.2920, L300.3900, L3400.0700, L3100.5450, L3100.0300, L500.3400, L3100.0460, L3200.1400, L800.1280, L3300.1200 #### [facility] [address] [place], [address] BACTERIA 3+ /hpf Normal None Seen [facility] Comment on above: Order Comment: COLOR OF URINE MAY AFFECT DIPSTICK RESULTS.CLEAN CATCH Performed By: #### L 803.2200, L3410.2920, L300.3900, L3400.0700, L3100.5450, L3100.0300, L500.3400, L3100.0460, L3200.1400, L800.1280, L3300.1200 #### [facility] [address] [place], [place], [id number] EPI,SQUAMOUS 5-10 SEEN Normal 5-10 [facility] Comment on above: Order Comment: COLOR OF URINE MAY AFFECT DIPSTICK RESULTS.CLEAN CATCH Performed By: #### L 803.2200, L3410.2920, L300.3900, L3400.0700, L3100.5450, L3100.0300, L500.3400, L3100.0460, L3200.1400, L800.1280, L3300.1200 #### [facility] [address] [place], [place], [phone] ([phone] RBC 5-10 SEEN Normal 0-5 [facility] Comment on above: Order Comment: COLOR OF URINE MAY AFFECT DIPSTICK RESULTS.CLEAN CATCH Performed By: #### L 803.2200, L3410.2920, L300.3900, L3400.0700, L3100.5450, L3100.0300, L500.3400, L3100.0460, L3200.1400, L800.1280, L3300.1200 #### [facility] [address] [place], [place], [phone] [phone] 10-25 SEEN Normal 0-5 [facility] Comment on above: Order Comment: COLOR OF URINE MAY AFFECT DIPSTICK RESULTS.CLEAN CATCH Performed By: #### L 803.2200, L3410.2920, L300.3900, L3400.0700, L3100.5450, L3100.0300, L500.3400, L3100.0460, L3200.1400, L800.1280, L3300.1200 #### [facility] [address] [place], [address] Mucus Ql (Urine sed) 0 SEEN Normal [facility] Comment on above: Order Comment: COLOR OF URINE MAY AFFECT DIPSTICK RESULTS.CLEAN CATCH Performed By: #### L 803.2200, L3410.2920, L300.3900, L3400.0700, L3100.5450, L3100.0300, L500.3400, L3100.0460, L3200.1400, L800.1280, L3300.1200 #### [facility] [address] [place], [place], [phone] Urine clarityOrdered By: Mg Silveira on 10-06-2024 Clarity (U) Sl. Cloudy Clear [facility] Urine color determinationOrd ered By: Will Silveira on 10-06-2024 Color (U) Olga Lidia Yellow [facility] Urine cultureOrdered By: Mg Silveira on 10-06-2024 Bacteria identified Cx Nom (U) Escherichia coli Abnormal [facility] Urine glucose detectionOrder ed By: Will Silveira on 10-06-2024 Glucose Ql (U) Normal mg/dl Normal [facility] Urine leukocyte esterase det ection by dipstickOrdered By: Will Silveira on 10-06-2024 Leukocyte esterase Test strip Ql (U) 100 /ul High Negative [facility] Urine pHOrdered By: Will Lira on 10-06-2024 pH (U) 6.0 [pH] 5.0 - 8.0 [facility] Urine sediment bacteria coun t by microscopy (number/high power field)Ordered By: Will Silveira on 10-06-2024 Bacteria LM.HPF (Urine sed) [#/Area] 3 /[HPF] None Seen [facility] Urine specific gravity measu rementOrdered By: Will Silveira on 10-06-2024 Specific gravity (U) [Rel density] 1.020 1.002-1.03 0 [facility] Urine urobilinogen measureme ntOrdered By: Willmadison Silveira on 10-06-2024 Urobilinogen Ql (U) 1 mg/dl High Normal [facility] White blood cell (WBC) count Ordered By: Will Silveira on 10-06-2024 WBC (Bld) [#/Vol] 6.4 10*3/uL 4.4-11.0 [facility] White blood cell countOrdere d By: Will Silveira on 10-06-2024 White blood cell count 10-25 SEEN /hpf 0-5 [facility] Absolute lymphocyte countOrd ered By: Javier Morales on 09-10-2024 Lymphocytes Auto (Unsp spec) [#/Vol] 0.77 10*3/uL Low 0.83-4.51 [facility] Absolute neutrophil countOrd ered By: Javier Morales on 09-10-2024 Neutrophils (Bld) [#/Vol] 5.2 10*3/uL 2.0-7.7 [facility] Anion gap in Serum or Plasma Ordered By: Javier Morales on 09-10-2024 Anion gap [Moles/Vol] 11 mmol/L 5-15 [facility] Automated lymphocyte count a s percentage of total leukocytesOrdered By: Javier Morales on 09-10-2024 Lymphocytes/100 WBC Auto (Unsp spec) 11.4 % Low 19-41 [facility] BUN/creatinine ratioOrdered By: Javier Morales on 09-10-2024 Urea nitrogen/Creatinine [Mass ratio] 11.9 mg/mg 10-20 [facility] Basophil percentageOrdered B y: Javier Morales on 09-10-2024 Basophils/100 WBC (Bld) 0.4 % 0-1 [facility] Bilirubin directOrdered By: Javier Morales on 09-10-2024 Bilirubin.direct [Mass/Vol] 0.27 mg/dL 0.00-0.3 0 [facility] Bilirubin, Directon 09-11-19 25 Bilirubin.direct [Mass/Vol] 0.27 mg/dL Normal 0.00-0.3 0 [facility] Comment on above: Order Comment: DR.MH ALVAREZ ORDERED LIPID AND LIVERNP.MICHAEL ORDERED LIPID,CMP,CBCD,A1C,TSH,AND T4F Performed By: #### L 803.2200, L3410.2920, L300.3900, L3400.0700, L3100.5450, L3100.0300, L500.3400, L3100.0460, L3200.1400, L800.1280, L3300.1200 #### [facility] [address] [place], [place], [phone] ([phone] Bilirubin, totalOrdered By: Javier Morales on 09-10-2024 Bilirubin [Mass/Vol] 0.63 mg/dL 0.00-1.30 [facility] CBC W/Diff, Automatedon 08-31 Absolute Lymph 0.77 X10 3/uL Low 0.83-4.51 [facility] Comment on above: Order Comment: DR.MH ALVAREZ ORDERED LIPID AND LIVERNP.MICHAEL ORDERED LIPID,CMP,CBCD,A1C,TSH,AND T4F Performed By: #### L 803.2200, L3410.2920, L300.3900, L3400.0700, L3100.5450, L3100.0300, L500.3400, L3100.0460, L3200.1400, L800.1280, L3300.1200 #### [facility] [address] [place], [address] Absolute Neut 5.2 X10 3/uL Normal 2.0-7.7 [facility] Comment on above: Order Comment: DR.MH ALVAREZ ORDERED LIPID AND LIVERNP.MICHAEL ORDERED LIPID,CMP,CBCD,A1C,TSH,AND T4F Performed By: #### L 803.2200, L3410.2920, L300.3900, L3400.0700, L3100.5450, L3100.0300, L500.3400, L3100.0460, L3200.1400, L800.1280, L3300.1200 #### [facility] [address] [place], [address] Basophils/100 WBC (Bld) 0.4 % Normal 0-1 [facility] Comment on above: Order Comment: DR.MH ALVAREZ ORDERED LIPID AND LIVERNP.MONTEZKLDULCE ORDERED LIPID,CMP,CBCD,A1C,TSH,AND T4F Performed By: #### L 803.2200, L3410.2920, L300.3900, L3400.0700, L3100.5450, L3100.0300, L500.3400, L3100.0460, L3200.1400, L800.1280, L3300.1200 #### [facility] [address] [place], [address] Eosinophils/100 WBC (Bld) 6.9 % High 0-5 [facility] Comment on above: Order Comment: DR.MH ALVAREZ ORDERED LIPID AND LIVERNP.MICHAEL ORDERED LIPID,CMP,CBCD,A1C,TSH,AND T4F Performed By: #### L 803.2200, L3410.2920, L300.3900, L3400.0700, L3100.5450, L3100.0300, L500.3400, L3100.0460, L3200.1400, L800.1280, L3300.1200 #### [facility] [address] [place], [address] Erythrocyte distribution width (RBC) [Ratio] 13.5 % Normal 11.6-14.6 [facility] Comment on above: Order Comment: DR.MH ALVAREZ ORDERED LIPID AND LIVERNP.KDRANKLDULCE ORDERED LIPID,CMP,CBCD,A1C,TSH,AND T4F Performed By: #### L 803.2200, L3410.2920, L300.3900, L3400.0700, L3100.5450, L3100.0300, L500.3400, L3100.0460, L3200.1400, L800.1280, L3300.1200 #### [facility] [address] [facility], [address] Hematocrit (Bld) [Volume fraction] 41.7 % Normal 37-47 [facility] Comment on above: Order Comment: DR.MH ALVAREZ ORDERED LIPID AND LIVERNP.JFRANKLIN ORDERED LIPID,CMP,CBCD,A1C,TSH,AND T4F Performed By: #### L 803.2200, L3410.2920, L300.3900, L3400.0700, L3100.5450, L3100.0300, L500.3400, L3100.0460, L3200.1400, L800.1280, L3300.1200 #### [facility] [address] [facility] [place], [address] Hemoglobin (Bld) [Mass/Vol] 13.8 g/dL Normal 12.0-15. 0 [facility] Comment on above: Order Comment: DR.MH ALVAREZ ORDERED LIPID AND LIVERNP.JFRANKLIN ORDERED LIPID,CMP,CBCD,A1C,TSH,AND T4F Performed By: #### L 803.2200, L3410.2920, L300.3900, L3400.0700, L3100.5450, L3100.0300, L500.3400, L3100.0460, L3200.1400, L800.1280, L3300.1200 #### [facility] [address] [place], [address] IG% 0.400 Normal 0.0-0.9 [facility] Comment on above: Order Comment: DR.MH ALVAREZ ORDERED LIPID AND LIVERNP.JFRANKLIN ORDERED LIPID,CMP,CBCD,A1C,TSH,AND T4F Result Comment: IG% - Immature Granulocytes (promyelocytes, myelocytes and metamyelocytes) > 1% indicates that a LEFT SHIFT is Present. Performed By: #### L 803.2200, L3410.2920, L300.3900, L3400.0700, L3100.5450, L3100.0300, L500.3400, L3100.0460, L3200.1400, L800.1280, L3300.1200 #### [facility] [address] [place], [address] Lymphocytes/100 WBC (Bld) 11.4 % Low 19-41 [facility] Comment on above: Order Comment: DR.MH ALVAREZ ORDERED LIPID AND LIVERNP.JFRANKLIN ORDERED LIPID,CMP,CBCD,A1C,TSH,AND T4F Performed By: #### L 803.2200, L3410.2920, L300.3900, L3400.0700, L3100.5450, L3100.0300, L500.3400, L3100.0460, L3200.1400, L800.1280, L3300.1200 #### [facility] [address] [place], [address] MCH (RBC) [Entitic mass] 30.9 pg Normal 27.0-32.0 [facility] Comment on above: Order Comment: DR.MH ALVAREZ ORDERED LIPID AND LIVERNP.JFRANKLIN ORDERED LIPID,CMP,CBCD,A1C,TSH,AND T4F Performed By: #### L 803.2200, L3410.2920, L300.3900, L3400.0700, L3100.5450, L3100.0300, L500.3400, L3100.0460, L3200.1400, L800.1280, L3300.1200 #### [facility] [address] [place], [address] MCHC (RBC) [Mass/Vol] 33.1 g/dL Normal 32-36 [facility] Comment on above: Order Comment: DR.MH ALVAREZ ORDERED LIPID AND LIVERNP.JFRANKLIN ORDERED LIPID,CMP,CBCD,A1C,TSH,AND T4F Performed By: #### L 803.2200, L3410.2920, L300.3900, L3400.0700, L3100.5450, L3100.0300, L500.3400, L3100.0460, L3200.1400, L800.1280, L3300.1200 #### [facility] [address] [place], [address] MCV (RBC) [Entitic vol] 93.3 fL Normal 81-99 [facility] Comment on above: Order Comment: DR.MH ALVAREZ ORDERED LIPID AND LIVERNP.KDRANKLIN ORDERED LIPID,CMP,CBCD,A1C,TSH,AND T4F Performed By: #### L 803.2200, L3410.2920, L300.3900, L3400.0700, L3100.5450, L3100.0300, L500.3400, L3100.0460, L3200.1400, L800.1280, L3300.1200 #### [facility] [address] [place], [address] Monocytes/100 WBC (Bld) 4.0 % Normal 0-10 [facility] Comment on above: Order Comment: DR.MH ALVAREZ ORDERED LIPID AND LIVERNP.KDRANJANETIN ORDERED LIPID,CMP,CBCD,A1C,TSH,AND T4F Performed By: #### L 803.2200, L3410.2920, L300.3900, L3400.0700, L3100.5450, L3100.0300, L500.3400, L3100.0460, L3200.1400, L800.1280, L3300.1200 #### [facility] [address] [place], [address] Neutrophils/100 WBC (Bld) 76.9 % High 47-70 [facility] Comment on above: Order Comment: DR.MH ALVAREZ ORDERED LIPID AND LIVERNP.JFRANKLIN ORDERED LIPID,CMP,CBCD,A1C,TSH,AND T4F Performed By: #### L 803.2200, L3410.2920, L300.3900, L3400.0700, L3100.5450, L3100.0300, L500.3400, L3100.0460, L3200.1400, L800.1280, L3300.1200 #### [facility] [address] [place], [address] Nucleated RBC (Bld) [#/Vol] 0 10*3/uL Normal 0-5 [facility] Comment on above: Order Comment: DR.MH ALVAREZ ORDERED LIPID AND LIVERNP.JFRANKLIN ORDERED LIPID,CMP,CBCD,A1C,TSH,AND T4F Performed By: #### L 803.2200, L3410.2920, L300.3900, L3400.0700, L3100.5450, L3100.0300, L500.3400, L3100.0460, L3200.1400, L800.1280, L3300.1200 #### [facility] [address] [facility] [place], [address] Platelet mean volume (Bld) [Entitic vol] 11.9 fL Normal 6.2-12.0 [facility] Comment on above: Order Comment: DR.MH ALVAREZ ORDERED LIPID AND LIVERNP.JFRANKLIN ORDERED LIPID,CMP,CBCD,A1C,TSH,AND T4F Performed By: #### L 803.2200, L3410.2920, L300.3900, L3400.0700, L3100.5450, L3100.0300, L500.3400, L3100.0460, L3200.1400, L800.1280, L3300.1200 #### [facility] [address] [place], [address] Platelets (Bld) [#/Vol] 216 10*3/uL Normal 150-450 [facility] Comment on above: Order Comment: DR.MH ALVAREZ ORDERED LIPID AND LIVERNP.JFRANKLIN ORDERED LIPID,CMP,CBCD,A1C,TSH,AND T4F Performed By: #### L 803.2200, L3410.2920, L300.3900, L3400.0700, L3100.5450, L3100.0300, L500.3400, L3100.0460, L3200.1400, L800.1280, L3300.1200 #### [facility] [address] [place], [address] RBC (Bld) [#/Vol] 4.47 10*6/uL Normal 4.2-5.4 [facility] Comment on above: Order Comment: DR.MH ALVAREZ ORDERED LIPID AND LIVERNP.JFRANKLIN ORDERED LIPID,CMP,CBCD,A1C,TSH,AND T4F Performed By: #### L 803.2200, L3410.2920, L300.3900, L3400.0700, L3100.5450, L3100.0300, L500.3400, L3100.0460, L3200.1400, L800.1280, L3300.1200 #### [facility] [address] [place], [address] RDW SD 45.9 fl High 35.1-43.9 [facility] Comment on above: Order Comment: DR.MH ALVAREZ ORDERED LIPID AND LIVERNP.JFRANKLIN ORDERED LIPID,CMP,CBCD,A1C,TSH,AND T4F Performed By: #### L 803.2200, L3410.2920, L300.3900, L3400.0700, L3100.5450, L3100.0300, L500.3400, L3100.0460, L3200.1400, L800.1280, L3300.1200 #### [facility] [address] [place], [address] WBC (Bld) [#/Vol] 6.8 10*3/uL Normal 4.4-11.0 [facility] Comment on above: Order Comment: DR.MH ALVAREZ ORDERED LIPID AND LIVERNP.JFRANKLIN ORDERED LIPID,CMP,CBCD,A1C,TSH,AND T4F Performed By: #### L 803.2200, L3410.2920, L300.3900, L3400.0700, L3100.5450, L3100.0300, L500.3400, L3100.0460, L3200.1400, L800.1280, L3300.1200 #### [facility] [address] [facility] [place], [place], [id number] Calculated very low density lipoprotein (VLDL) cholesterol measurementOrdered By: Javier Morales on 09-10-2024 Calculated very low density lipoprotein (VLDL) cholesterol measurement 15 mg/dL 5-40 [facility] Carbon dioxide, total [Moles /volume] in Central venous bloodOrdered By: Javier Morales on 09-10-2024 CO2 [Moles/Vol] 24.4 mmol/L 21.0-32.0 [facility] Chloride assayOrdered By: Ann-Marie Morales on 09-10-2024 Chloride [Moles/Vol] 104 mmol/L 98-108 [facility] Comprehensive Metabolic Prof ilon 09-10-2024 Albumin [Mass/Vol] 3.8 g/dL Normal 3.5-5.0 [facility] Comment on above: Order Comment: DR.MH ALVAREZ ORDERED LIPID AND LIVERNP.MICHAEL ORDERED LIPID,CMP,CBCD,A1C,TSH,AND T4F Performed By: #### L 803.2200, L3410.2920, L300.3900, L3400.0700, L3100.5450, L3100.0300, L500.3400, L3100.0460, L3200.1400, L800.1280, L3300.1200 #### [facility] [address] [facility] [place], [place], [id number] Albumin/Globulin [Mass ratio] 1.3 {ratio} Normal 0.9-2.4 [facility] Comment on above: Order Comment: DR.MH ALVAREZ ORDERED LIPID AND LIVERNP.MICHAEL ORDERED LIPID,CMP,CBCD,A1C,TSH,AND T4F Performed By: #### L 803.2200, L3410.2920, L300.3900, L3400.0700, L3100.5450, L3100.0300, L500.3400, L3100.0460, L3200.1400, L800.1280, L3300.1200 #### [facility] [address] [place], [place], [id number] ALK PHOS 74 U/L Normal 35-104 [facility] Comment on above: Order Comment: DR.MH ALVAREZ ORDERED LIPID AND LIVERNP.JFRANKLIN ORDERED LIPID,CMP,CBCD,A1C,TSH,AND T4F Performed By: #### L 803.2200, L3410.2920, L300.3900, L3400.0700, L3100.5450, L3100.0300, L500.3400, L3100.0460, L3200.1400, L800.1280, L3300.1200 #### [facility] [address] [place], [place], [phone] ALT [Catalytic activity/Vol] 100 U/L High <=34 [facility] Comment on above: Order Comment: DR.MH ALVAREZ ORDERED LIPID AND LIVERNP.JFRANKLIN ORDERED LIPID,CMP,CBCD,A1C,TSH,AND T4F Performed By: #### L 803.2200, L3410.2920, L300.3900, L3400.0700, L3100.5450, L3100.0300, L500.3400, L3100.0460, L3200.1400, L800.1280, L3300.1200 #### [facility] [address] [place], [place], [id number] AST [Catalytic activity/Vol] 98 U/L High <=31 [facility] Comment on above: Order Comment: DR.MH ALVAREZ ORDERED LIPID AND LIVERNP.JFRANKLIN ORDERED LIPID,CMP,CBCD,A1C,TSH,AND T4F Performed By: #### L 803.2200, L3410.2920, L300.3900, L3400.0700, L3100.5450, L3100.0300, L500.3400, L3100.0460, L3200.1400, L800.1280, L3300.1200 #### [facility] [address] [place], [address] Bilirubin [Mass/Vol] 0.63 mg/dL Normal 0.00-1.30 [facility] Comment on above: Order Comment: DR.MH ALVAREZ ORDERED LIPID AND LIVERNP.JFRANKLIN ORDERED LIPID,CMP,CBCD,A1C,TSH,AND T4F Performed By: #### L 803.2200, L3410.2920, L300.3900, L3400.0700, L3100.5450, L3100.0300, L500.3400, L3100.0460, L3200.1400, L800.1280, L3300.1200 #### [facility] [address] [facility] [place], [address] BUN/CRE 11.9 RATIO Normal 10-20 [facility] Comment on above: Order Comment: DR.MH ALVAREZ ORDERED LIPID AND LIVERNP.JFRANKLIN ORDERED LIPID,CMP,CBCD,A1C,TSH,AND T4F Performed By: #### L 803.2200, L3410.2920, L300.3900, L3400.0700, L3100.5450, L3100.0300, L500.3400, L3100.0460, L3200.1400, L800.1280, L3300.1200 #### [facility] [address] [place], [place], [id number] Calcium [Mass/Vol] 9.4 mg/dL Normal 7.6-11.0 [facility] Comment on above: Order Comment: DR.MH ALVAREZ ORDERED LIPID AND LIVERNP.JFRANKLIN ORDERED LIPID,CMP,CBCD,A1C,TSH,AND T4F Performed By: #### L 803.2200, L3410.2920, L300.3900, L3400.0700, L3100.5450, L3100.0300, L500.3400, L3100.0460, L3200.1400, L800.1280, L3300.1200 #### [facility] [address] [place], [address] Chloride [Moles/Vol] 104 mmol/L Normal 98-108 [facility] Comment on above: Order Comment: DR.MH ALVAREZ ORDERED LIPID AND LIVERNP.KDRANKLIN ORDERED LIPID,CMP,CBCD,A1C,TSH,AND T4F Performed By: #### L 803.2200, L3410.2920, L300.3900, L3400.0700, L3100.5450, L3100.0300, L500.3400, L3100.0460, L3200.1400, L800.1280, L3300.1200 #### [facility] [address] [place], [place], [phone] (186) CO2 [Moles/Vol] 24.4 mmol/L Normal 21.0-32.0 [facility] Comment on above: Order Comment: DR.MH ALVAREZ ORDERED LIPID AND LIVERNP.KDRANKLIN ORDERED LIPID,CMP,CBCD,A1C,TSH,AND T4F Performed By: #### L 803.2200, L3410.2920, L300.3900, L3400.0700, L3100.5450, L3100.0300, L500.3400, L3100.0460, L3200.1400, L800.1280, L3300.1200 #### [facility] [address] [place], [place], [phone] Creatinine [Mass/Vol] 0.68 mg/dL Low 0.70-1.20 [facility] Comment on above: Order Comment: DR.MH ALVAREZ ORDERED LIPID AND LIVERNP.KDRANKLIN ORDERED LIPID,CMP,CBCD,A1C,TSH,AND T4F Performed By: #### L 803.2200, L3410.2920, L300.3900, L3400.0700, L3100.5450, L3100.0300, L500.3400, L3100.0460, L3200.1400, L800.1280, L3300.1200 #### [facility] [address] [place], [address] GAP 11 Normal 5-15 [facility] Comment on above: Order Comment: DR.MH ALVAREZ ORDERED LIPID AND LIVERNP.MICHAEL ORDERED LIPID,CMP,CBCD,A1C,TSH,AND T4F Performed By: #### L 803.2200, L3410.2920, L300.3900, L3400.0700, L3100.5450, L3100.0300, L500.3400, L3100.0460, L3200.1400, L800.1280, L3300.1200 #### [facility] [address] [place], [place], [id number] GFR/1.73 sq M.predicted among non-blacks MDRD (S/P/Bld) [Vol rate/Area] 103 mL/min/{1.73_m2} Normal >60 [facility] Comment on above: Order Comment: DR.MH ALVAREZ ORDERED LIPID AND LIVERNP.MICHAEL ORDERED LIPID,CMP,CBCD,A1C,TSH,AND T4F Result Comment: mL/m in/1.73m2 CKD-EPI Creatinine Equation (2020) Performed By: #### L 803.2200, L3410.2920, L300.3900, L3400.0700, L3100.5450, L3100.0300, L500.3400, L3100.0460, L3200.1400, L800.1280, L3300.1200 #### [facility] [address] [facility] [place], [place], [phone] Globulin (S) [Mass/Vol] 2.9 g/dL Normal 2.2-4.2 [facility] Comment on above: Order Comment: DR.MH ALVAREZ ORDERED LIPID AND LIVERNP.MICHAEL ORDERED LIPID,CMP,CBCD,A1C,TSH,AND T4F Performed By: #### L 803.2200, L3410.2920, L300.3900, L3400.0700, L3100.5450, L3100.0300, L500.3400, L3100.0460, L3200.1400, L800.1280, L3300.1200 #### [facility] [address] [place], [address] Glucose [Mass/Vol] 106 mg/dL High 70-99 [facility] Comment on above: Order Comment: DR.MH ALVAREZ ORDERED LIPID AND LIVERNP.JFRANKLIN ORDERED LIPID,CMP,CBCD,A1C,TSH,AND T4F Performed By: #### L 803.2200, L3410.2920, L300.3900, L3400.0700, L3100.5450, L3100.0300, L500.3400, L3100.0460, L3200.1400, L800.1280, L3300.1200 #### [facility] [address] [place], [address] Potassium [Moles/Vol] 3.8 mmol/L Normal 3.3-5.1 [facility] Comment on above: Order Comment: DR.MH ALVAREZ ORDERED LIPID AND LIVERNP.JFRANKLIN ORDERED LIPID,CMP,CBCD,A1C,TSH,AND T4F Performed By: #### L 803.2200, L3410.2920, L300.3900, L3400.0700, L3100.5450, L3100.0300, L500.3400, L3100.0460, L3200.1400, L800.1280, L3300.1200 #### [facility] [address] [place], [place], [phone] (210) Sodium [Moles/Vol] 139 mmol/L Normal 133-145 [facility] Comment on above: Order Comment: DR.MH ALVAREZ ORDERED LIPID AND LIVERNP.JFRANKLIN ORDERED LIPID,CMP,CBCD,A1C,TSH,AND T4F Performed By: #### L 803.2200, L3410.2920, L300.3900, L3400.0700, L3100.5450, L3100.0300, L500.3400, L3100.0460, L3200.1400, L800.1280, L3300.1200 #### [facility] [address] [place], [address] T PROT 6.7 g/dL Normal 5.9-8.4 [facility] Comment on above: Order Comment: DR.MH AVLAREZ ORDERED LIPID AND LIVERNP.MICHAEL ORDERED LIPID,CMP,CBCD,A1C,TSH,AND T4F Performed By: #### L 803.2200, L3410.2920, L300.3900, L3400.0700, L3100.5450, L3100.0300, L500.3400, L3100.0460, L3200.1400, L800.1280, L3300.1200 #### [facility] [address] [place], [address] Urea nitrogen [Mass/Vol] 8 mg/dL Normal 4-19 [facility] Comment on above: Order Comment: DR.MH ALVAREZ ORDERED LIPID AND LIVERNP.LEOBARDOIN ORDERED LIPID,CMP,CBCD,A1C,TSH,AND T4F Performed By: #### L 803.2200, L3410.2920, L300.3900, L3400.0700, L3100.5450, L3100.0300, L500.3400, L3100.0460, L3200.1400, L800.1280, L3300.1200 #### [facility] [address] [place], [address] Eosinophil percentageOrdered By: Javier Morales on 09-10-2024 Eosinophils/100 WBC (Bld) 6.9 % High 0-5 [facility] Erythrocyte distribution wid th ratioOrdered By: Javier Morales on 09-10-2024 Erythrocyte distribution width (RBC) [Ratio] 13.5 % 11.6-14.6 [facility] Erythrocyte distribution wid th standard deviationOrdered By: Javier Morales on 09-10-2024 Erythrocyte distribution width (RBC) [Ratio] 45.9 fl High 35.1-43.9 [facility] Glomerular filtration rate ( GFR) estimation/1.73 sq m using serum, plasma, or whole bOrdered By: Javier Morales on 09-10-2024 GFR/1.73 sq M.predicted among non-blacks MDRD (S/P/Bld) [Vol rate/Area] 103 mL/min/{1.73_m2} >60 [facility] Comment on above: mL/min/1.73m2 CKD-EP I Creatinine Equation (2020) Hematocrit Auto (Bld) [Volum e fraction]Ordered By: Javier Morales on 09-10-2024 Hematocrit (Bld) [Volume fraction] 41.7 % 37-47 [facility] Hemoglobin A1con 09-10-2024 HbA1c (Bld) [Mass fraction] 6.0 % High <=5.6 [facility] Comment on above: Order Comment: DR.MH ALVAERZ ORDERED LIPID AND LIVERNP.MICHAEL ORDERED LIPID,CMP,CBCD,A1C,TSH,AND T4F Result Comment: Norm al < 5.7 % Prediabetic 5.7 - 6.4 % Diabetic >or= 6.5 % Please note range changes. Performed By: #### L 803.2200, L3410.2920, L300.3900, L3400.0700, L3100.5450, L3100.0300, L500.3400, L3100.0460, L3200.1400, L800.1280, L3300.1200 #### [facility] [place], [address] Hemoglobin A1c percentageOrd ered By: Javier Morales on 09-10-2024 HbA1c (Bld) [Mass fraction] 6.0 % High <5.7 [facility] Comment on above: Normal < 5.7 % Predi abetic 5.7 - 6.4 % Diabetic >or= 6.5 % Please note range changes. Hemoglobin measurementOrdere d By: Javier Morales on 09-10-2024 Hemoglobin (Bld) [Mass/Vol] 13.8 g/dL 12.0-15. 0 [facility] Immature granulocytes/100 WB C Auto (Bld)Ordered By: Javier Morales on 09-10-2024 Immature granulocytes/100 WBC (Bld) 0.400 % 0.0-0.9 [facility] Comment on above: IG% - Immature Granu locytes (promyelocytes, myelocytes and metamyelocytes) > 1% indicates that a LEFT SHIFT is Present. LDL calc ser/plasOrdered By: Javier Morales on 09-10-2024 Cholesterol in LDL [Mass/Vol] 75 mg/dL [facility] Comment on above: Rgpxjdihwx=610-392 m g/dL & Higher Jctb=100 mg/dL or greater Laboratory - Chemistry and C hemistry - challengeOrdered By: Javier Morales on 09-10-2024 AST [Catalytic activity/Vol] 98 U/L High <32 [facility] Lipid Profileon 09-10-2024 CHOL:HDL 3.60 Normal [facility] Comment on above: Order Comment: DR.MH ALVAREZ ORDERED LIPID AND LIVERNP.MICHAEL ORDERED LIPID,CMP,CBCD,A1C,TSH,AND T4F Performed By: #### L 803.2200, L3410.2920, L300.3900, L3400.0700, L3100.5450, L3100.0300, L500.3400, L3100.0460, L3200.1400, L800.1280, L3300.1200 #### [facility] Laboratory [address] [place], [place], [id number] (994) Cholesterol [Mass/Vol] 125 mg/dL Normal <=200 [facility] Comment on above: Order Comment: DR.MH ALVAREZ ORDERED LIPID AND LIVERNP.MICHAEL ORDERED LIPID,CMP,CBCD,A1C,TSH,AND T4F Result Comment: Chol esterol level, Desirable <200 mg/dL Borderline high cholesterol 200-239 mg/dL High cholesterol >=240 mg/dL Recommendations of the NCEP Adult Treatment Panel for the following risk-cutoff thresholds for the [place]. Performed By: #### L 803.2200, L3410.2920, L300.3900, L3400.0700, L3100.5450, L3100.0300, L500.3400, L3100.0460, L3200.1400, L800.1280, L3300.1200 #### [facility] [address] [place], [address] Cholesterol in HDL [Mass/Vol] 35 mg/dL Low [facility] Comment on above: Order Comment: DR.MH ALVAREZ ORDERED LIPID AND LIVERNP.MONTEZKLIN ORDERED LIPID,CMP,CBCD,A1C,TSH,AND T4F Result Comment: [place] onal Cholesterol Education Program (NCEP) guidelines: <40 mg/dL: Low HDL-cholesterol (major risk factor for CHD) >= 60 mg/dL: High HDL-cholesterol (negative risk factor for CHD) HDL-cholesterol is affected by a number of factors, e.g. smoking, exercise, hormones, sex and age. Performed By: #### L 803.2200, L3410.2920, L300.3900, L3400.0700, L3100.5450, L3100.0300, L500.3400, L3100.0460, L3200.1400, L800.1280, L3300.1200 #### [facility] [address] [place], [place], [phone] (219) Cholesterol in LDL [Mass/Vol] 75 mg/dL Normal [facility] Comment on above: Order Comment: DR.MH ALVAREZ ORDERED LIPID AND LIVERNP.MONTEZKLIN ORDERED LIPID,CMP,CBCD,A1C,TSH,AND T4F Result Comment: Bord ipysge=590-957 mg/dL Higher Pkvf=064 mg/dL or greater Performed By: #### L 803.2200, L3410.2920, L300.3900, L3400.0700, L3100.5450, L3100.0300, L500.3400, L3100.0460, L3200.1400, L800.1280, L3300.1200 #### [facility] [address] [place], [place], [id number] (978) Cholesterol in VLDL [Mass/Vol] 15 mg/dL Normal 5-40 [facility] Comment on above: Order Comment: DR.MH ALVAREZ ORDERED LIPID AND LIVERNP.KDRANKLIN ORDERED LIPID,CMP,CBCD,A1C,TSH,AND T4F Performed By: #### L 803.2200, L3410.2920, L300.3900, L3400.0700, L3100.5450, L3100.0300, L500.3400, L3100.0460, L3200.1400, L800.1280, L3300.1200 #### [facility] [address] [place], [address] Triglyceride [Mass/Vol] 76 mg/dL Normal [facility] Comment on above: Order Comment: DR.MH ALVAREZ ORDERED LIPID AND LIVERNP.MICHAEL ORDERED LIPID,CMP,CBCD,A1C,TSH,AND T4F Result Comment: The drugs N-Acetylcysteine and Metamizole may falsely depress this assay. Normal range: <150 mg/dL Borderline High: 150-199 mg/dL High: 200-499 mg/dL Very High: >500 mg/dL Performed By: #### L 803.2200, L3410.2920, L300.3900, L3400.0700, L3100.5450, L3100.0300, L500.3400, L3100.0460, L3200.1400, L800.1280, L3300.1200 #### [facility] [address] [place], [place], [id number] MCV (mean corpuscular volume ) determinationOrdered By: Javier Morales on 09-10-2024 MCV (RBC) [Entitic vol] 93.3 fL 81-99 [facility] Mean corpuscular hemoglobin (MCH) determinationOrdered By: Javier Morales on 09-10-2024 MCH (RBC) [Entitic mass] 30.9 pg 27.0-32.0 [facility] Mean corpuscular hemoglobin concentration (MCHC) determinationOrdered By: Javier Morales on 09-10-2024 MCHC (RBC) [Mass/Vol] 33.1 g/dL 32-36 [facility] Mean platelet volume determi nationOrdered By: Javier Morales on 09-10-2024 Platelet mean volume (Bld) [Entitic vol] 11.9 fL 6.2-12.0 [facility] Monocyte percentageOrdered B y: Javier Morales on 09-10-2024 Monocytes/100 WBC (Bld) 4.0 % 0-10 [facility] Neutrophil percentageOrdered By: Javier Morales on 09-10-2024 Neutrophils/100 WBC (Bld) 76.9 % High 47-70 [facility] Nucleated red blood cell per centageOrdered By: Javier Morales on 09-10-2024 Nucleated RBC/100 WBC (Bld) [Ratio] 0 % 0-5 [facility] Platelet countOrdered By: Ann-Marie Morales on 09-10-2024 Platelets (Bld) [#/Vol] 216 10*3/uL 150-450 [facility] Potassium measurement (mass/ volume)Ordered By: Javier Morales on 09-10-2024 Potassium (Unsp spec) [Mass/Vol] 3.8 mmol/L 3.3-5.1 [facility] RBC Auto (Bld) [#/Vol]Ordere d By: Javier Morales on 09-10-2024 RBC (Bld) [#/Vol] 4.47 10*6/uL 4.2-5.4 [facility] Screening total cholesterol/ high density lipoprotein (HDL) cholesterol ratioOrdered By: Javier Morales on 09-10-2024 Cholesterol.total/Cholester ol in HDL [Mass ratio] 3.60 {ratio} [facility] Serum creatinine measurement (mass/volume)Ordered By: Javier Morales on 09-10-2024 Creatinine [Mass/Vol] 0.68 mg/dL Low 0.70-1.20 [facility] Serum globulin measurementOr dered By: Javier Morales on 09-10-2024 Globulin (S) [Mass/Vol] 2.9 g/dL 2.2-4.2 [facility] Serum glucose measurement (m ass/volume)Ordered By: Javier Morales on 09-10-2024 Glucose [Mass/Vol] 106 mg/dL High 70-99 [facility] Serum or plasma alanine reynoso otransferase (ALT) measurementOrdered By: Javier Morales on 09-10-2024 ALT [Catalytic activity/Vol] 100 U/L High <35 [facility] Serum or plasma albumin ainsh urement (mass/volume)Ordered By: Javier Morales on 09-10-2024 Albumin [Mass/Vol] 3.8 g/dL 3.5-5.0 [facility] Serum or plasma albumin/glob ulin mass ratioOrdered By: Javier Morales on 09-10-2024 Albumin/Globulin [Mass ratio] 1.3 {ratio} 0.9-2.4 [facility] Serum or plasma alkaline brian sphatase measurementOrdered By: Javier Morales on 09-10-2024 ALP [Catalytic activity/Vol] 74 U/L 35-104 [facility] Serum or plasma calcium anish urement (mass/volume)Ordered By: Javier Morales on 09-10-2024 Calcium [Mass/Vol] 9.4 mg/dL 7.6-11.0 [facility] Serum or plasma cholesterol in HDL measurement (mass/volume)Ordered By: Javier Morales on 09-10-2024 Cholesterol in HDL [Mass/Vol] 35 mg/dL Low >40 [facility] Comment on above: National Cholesterol Education Program (NCEP) guidelines:<40 mg/dL: Low HDL-cholesterol (major risk factor for CHD)>= 60 mg/dL: High HDL-cholesterol (negative risk factor for CHD)HDL-cholesterol is affected by a number of factors, e.g. smoking, exercise, hormones, sex and age. Serum or plasma cholesterol measurement (mass/volume)Ordered By: Javier Morales on 09-10-2024 Cholesterol [Mass/Vol] 125 mg/dL <201 [facility] Comment on above: Cholesterol level, D esirable <200 mg/dLBorderline high cholesterol 200-239 mg/dLHigh cholesterol >=240 mg/dLRecommendations of the NCEP Adult Treatment Panel for the following risk-cutoff thresholds for the [place]. Serum or plasma urea nitroge n measurement (mass/volume)Ordered By: Javier Morales on 09-10-2024 Urea nitrogen [Mass/Vol] 8 mg/dL 4-19 [facility] Sodium levelOrdered By: Ethan Morales on 09-10-2024 Sodium [Moles/Vol] 139 mmol/L 133-145 [facility] T4 Free Directon 09-10-2024 T4 FREE DIRECT 0.80 ng/dL Normal 0.76-1.46 [facility] Comment on above: Order Comment: DR.MH ALVAREZ ORDERED LIPID AND LIVERNP.MICHAEL ORDERED LIPID,CMP,CBCD,A1C,TSH,AND T4F Performed By: #### L 803.2200, L3410.2920, L300.3900, L3400.0700, L3100.5450, L3100.0300, L500.3400, L3100.0460, L3200.1400, L800.1280, L3300.1200 #### [facility] Laboratory [address] [facility] [place], [address] T4 freeOrdered By: Javier alvarez on 09-10-2024 Free T4 [Mass/Vol] 0.80 ng/dL 0.76-1.46 [facility] TSH DL <= 0.005 mIU/L QnOrde red By: Javier Morales on 09-10-2024 TSH Qn 7.450 uIU/mL High 0.300-4.20 0 [facility] Thyroid Stim Hormone (TSH)on 09-10-2024 TSH 7.450 uIU/mL High 0.300-4.20 0 [facility] Comment on above: Order Comment: DR.MH ALVAREZ ORDERED LIPID AND LIVERNP.MICHAEL ORDERED LIPID,CMP,CBCD,A1C,TSH,AND T4F Performed By: #### L 803.2200, L3410.2920, L300.3900, L3400.0700, L3100.5450, L3100.0300, L500.3400, L3100.0460, L3200.1400, L800.1280, L3300.1200 #### [facility] [address] [facility] [place], [address] Total proteinOrdered By: Kathryn Morales on 09-10-2024 Protein [Mass/Vol] 6.7 g/dL 5.9-8.4 [facility] Triglycerides measurementOrd ered By: Javier Morales on 09-10-2024 Triglyceride [Mass/Vol] 76 mg/dL <199 [facility] Comment on above: The drugs N-Acetylcy steine and Metamizole may falsely depress this assay. Normal range: <150 mg/dLBorderline High: 150-199 mg/dLHigh: 200-499 mg/dLVery High: >500 mg/dL White blood cell (WBC) count Ordered By: Javier Morales on 09-10-2024 WBC (Bld) [#/Vol] 6.8 10*3/uL 4.4-11.0 [facility] Breast imaging reportOrdered By: Melony Oscar on 06-20-2024 Study report [facility] Imaging Services [address] [place] [address] SCRN MAMM (CAD)W/SHANNAN BILAT MR#: [id number] Acct: [id number] Name: TAMARA JOSE Rep #: [id number] : 1970 F 53 From: Heather Oscar MD PCP: ALEXA Bob, [employer] Status: REG CLI Study:SCRN MAMM (CAD)W/SHANNAN BILAT Date of Exa m: 06/20/24 Exam# [id number] Ordering Dr: Blanquita Lim [employer] EXAM: SCRN MAMM (CAD)W/SHANNAN BILAT 06/20/2024 CLINICAL [...] be mailed to the patient. Reading Location: [id number] CC: [facility] [employer] Blanquita Lim ~ Library Assistant: Signed [facility] SCRN MAMM (CAD)W/SHANNAN BILATo n 06-20-2024 SCRN MAMM (CAD)W/SHANNAN BILAT [facility] Imaging Services [address] [place] [address] SCRN MAMM (CAD)W/SHANNAN BILAT MR#: [id number] Acct: [id number] Name: TAMARA JOSE Rep #: [id number] : 1970 F 53 From: Melony Oscar MD PCP: ALEXA Bob, [employer] Status: REG CLI Study: SCRN MAMM (CAD)W/SHANNAN BILAT Date of Exam: 06/01 04/26 Exam# [id number] Ordering Dr: Blanquita Lim [employer] EXAM: SCRN MAMM (CAD)W/SHANNAN BILAT 06/20/2024 CLINICAL [...] be mailed to the patient. Reading Location: [id number] CC: [facility] [employer] Blanquita Lim Library Assistant: Signed Normal [facility] Cardiovascular stress test r eportOrdered By: Vijay Mcclellnad on 06-17-2024 Study report [facility] Cardiovascular Services [address] [place] [address] MR#: [id number] Acct: [id number] Name: TAMARA JOSE Rep #: [id number] : 1970 53 From: Vijay jiménez MD Primary Care: ALEXA Bob, [employer] Status: REG CLI Referring Dr: Javier Morales [...] for age This note was generated with [employer]ogl[employer] dictation software. It may contain incorrectwords, spelling, and punctuation that were not noted in checking the note beforesigning. 06/17/24 1445 Date _ Vijay Mcclelland MD CC: [facility] [employer] Blanquita Lim; Dr. Javier Morales MD ~ Date Dictated: 06/17/241441 Date Transcribed: 06/17/24 144 Library Assistant: NORA Signed [facility] Work Phone: Stress Reporton 06-17-2024 Stress Report [facility] Cardiovascular Services [address] [place] [address] MR#: [id number] Acct: [id number] Name: TAMARA JOSE Rep #: [id number] : 1970 53 From: Vijay Mcclelland MD Primary Care: ALEXA Bob, [employer] Status: REG CLI Referring Dr: Javier Morales [...] for age This note was generated with Acceleraation software. It may contain incorrect words, spelling, and punctuation that were not noted in checking the note before signing. 06/17/24 1445 Date Vijay Mcclelland MD CC: [facility] [employer] Blanquita Lim; Dr. Javier Morales MD Date Dictated: 06/17/24 1442 Date Transcribed: 06/17/241441 Library Assistant: NN Signed Normal [facility] 12 Lead EKG performed by [facility] on 05-23-2024 12 Lead EKG performed by [facility] [address] [place] [address] 12 Lead EKG performed by [facility] 05/23/24 1319 MR#: [id number] Acct: [id number] Name: TAMARA JOSE Rep #: [id number] : 1970 53 From: Javier Morales MD Attending Dr: Dr. Javier Morales MD Status: DE P AMB Ordering Dr: Javier Morales MD Date: 05/23/24 [place] [facility] Sex: F C Admitted: [facility]/12 Lead EKG performed by [facility] ECG Report Interpretation ----Sinus Rhythm WITHIN NORMAL LIMITSElectronically signed on 05/23/2024 at 14:[address] Javier Morales [employer] Software Version 8610 05/23/24 1501 Date Javier Morales MD CC: [facility] [employer] Blanquita Lim Date Dictated: 05/23/24 1319 Date Transcribed: 05/23/241318 Library Assistant: Signed Normal [facility] Cardiology Visit Reporton Cardiology Visit Report [facility] [address] [place] [address] OFFICE VISIT Date of Service: 05/23/24 MR#: [id number] Acct: [id number] Name: TAMARA JOSE Rep #: [id number] : 1970 Provider: Dr. Javier krueger MD Age/Sex: 53/F Location: [facility] Status: Signed with Addenda ADDENDUM by Dr. [...] Status: Acute Qualifiers: Coronary Disease-Associated Artery/Lesion type: [place] artery [place] vs. transplanted heart: [place] heart Associated angina: without angina Qualified Code(s): I25.10 - Atherosclerotic heart disease of [place] coronary artery without angina pectoris (3) Hypertension: Status: Chronic Qualifiers: Hypertension type: primary hypertension Qualified Code(s): I10 - Essential (primary) hypertension Comment: ON MEDS Orders: Orders 12 Lead EKG performed by [facility] Today E78.5 - Hyperlipidemia, unspecified Lipid Profile 3 Months E78.5 - Hyperlipidemia, unspecified Liver Profile 3 Months E78.5 - Hyperlipidemia, unspecified Stress Test Regular 2 Weeks E78.5 - Hyperlipidemia, unspecified, I25.10 - Atherosclerotic heart disease of [place] coronary artery without angina pectoris Medications: New atorvastatin 80 mg PO QDAY 30 tabs 3RF Discontinued atorvastatin Discontinued Reason: Order Changed 10 mg PO QDAY Plan Details Follow Up: 3 Years (As needed) 05/23/24 1343 Date Javier Morales MD cc: [facility] [employer] Blanquita Lim * Signed HPI HPI History of Present Illness Details: Patient is a 53-year-old white female that comes in today for new patient visit. Patient was referred for elevated calcium scoring. 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 Normal [facility] Coronary Angiography CTon Coronary Angiography CT [facility] Imaging Services [address] [place] [address] 03/24/24 0810 MR#: [id number] Acct: [id number] Name: TAMARA JOSE Rep #: [id number] : 1970 53 From: Jhon Caldwell MD PCP: ALEXA Bob, [employer] Status:REG CLI Y Location: CT Calcium Scoring [...] in 1-2 vessels. 03/24/24 0812 Date Jhon Ortizign Signature (if applicable): Date CC: ALEXA Lim; Dr. Jhon Caldwell MD Signed Normal [facility] Limited Chest CT Cardiac Onl [facility] 03-24-[address] Cardiac Only [facility] Imaging Services [address] [place] [address] Cardiac Only MR#: [id number] Acct: [id number] Name: TAMARA JOSE Rep #: [id number] : 1970 F 53 From: Misha whitten MD PCP: ALEXA Bob, [employer] Status: REG CLI Study: Limited Chest CT Cardiac Only Date of Exam: Exam# [id number] Ordering Dr: Blanquita Lim [facility] [employer] [id number] STUDY: CT CHEST WITHOUT CONTRAST REASON FOR [...] Machado MD at 12:20 EST , CC: [facility] [employer] Blanquita Lim Library Assistant: Signed Normal [facility] PAP IG w/Reflex HPV GDLNon 1 Path.prov.IDC-9 Comment Normal [facility] Comment on above: Order Comment: Speci men Comment: Source.............CervixSpecimen Comment: Other..............Post Menopausal;OtherSpecimen Comment: No. of containers..01 ThinPrep Vial Performed By: #### L 803.2200, L3410.2920, L300.3900, L3400.0700, L3100.5450, L3100.0300, L500.3400, L3100.0460, L3200.1400, L800.1280, L3300.1200 #### [facility] Laboratory [address] [place], [address] Microscopic method Nom (U)Or dered By: Zoraida Gaspar on 03-03-2023 Bacteria LM.HPF (Urine sed) [#/Area] Few Abnormal None /HPF [facility] Interpretation and review of laboratory results Abnormal [facility] Leukocyte clumps LM.HPF (Urine sed) [#/Area] Few Abnormal None /HPF [facility] RBC LM.HPF (Urine sed) [#/Area] 51-100 Abnormal [facility] WBC LM.HPF (Urine sed) [#/Area] 51-100 Abnormal [facility] Urinalysis dipstick W Reflex Microscopic panel (U)on 03-03-2023 Bacteria, Urine Few Abnormal None [facility] Comment on above: Performed By: #### 5 7020-0 #### [facility] [address] [place] [address] RBC, Urine 51-100 Abnormal 0-5 [facility] Comment on above: Performed By: #### 5 7020-0 #### [facility] [address] [place] [address] WBC Clumps, Urine Few Abnormal None [facility] Comment on above: Performed By: #### 5 7020-0 #### [facility] [address] [place] [address] WBC, Urine 51-100 Abnormal 0-5 [facility] Comment on above: Performed By: #### 5 7020-0 #### [facility] [address] [place] [address] Bilirubin Ql (U) Negative Negative mg/dL [facility] Clarity (U) Hazy Abnormal Clear [facility] Color (U) Light Yellow Abnormal Yellow [facility] Glucose Ql (U) Normal Normal mg/dL [facility] Hemoglobin Ql (U) 3+ Abnormal Negative eryth/mcL [facility] Interpretation and review of laboratory results Abnormal [facility] Ketones (U) [Mass/Vol] Negative Negat madyson mg/dL [facility] Leukocyte esterase Test strip Ql (U) 500 Abnormal Negative WBCs/mcL [facility] Nitrite Ql (U) Negative Negative [facility] pH (U) 7.5 [pH] 5.0 - 8.0 pH [facility] Protein (U) [Mass/Vol] 30 mg/dL Abnormal Negative [facility] Specific gravity (U) [Rel density] 1.010 1.002 - 1.030 [facility] Urobilinogen (U) [Mass/Vol] Normal Normal mg/dL [facility] CMP with eGFRon 01-19-2023 AGE 52 years Normal [facility] Comment on above: Performed By: #### 2 29910 #### [facility],[address] [place] [address] Albumin [Mass/Vol] 3.6 g/dL Normal 3.4 - 5.0 [facility] Comment on above: Performed By: #### 2 80791 #### [facility],[address] [place] [address] Albumin/Globulin [Mass ratio] 1.0 {ratio} Normal 0.9 - 1.6 [facility] Comment on above: Performed By: #### 2 55598 #### [facility],[address] [place] [address] ALK PHOS 96 U/L Normal 46 - 116 [facility] Comment on above: Performed By: #### 2 59195 #### [facility],[address] [place] [address]99 ALT [Catalytic activity/Vol] 54 U/L Normal 14 - 59 [facility] Comment on above: Performed By: #### 2 64475 #### [facility],[address] [place] [address] Anion gap [Moles/Vol] 13 mmol/L Normal 10 - 20 [facility] Comment on above: Performed By: #### 2 18783 #### [facility],[address] [place] [address] AST [Catalytic activity/Vol] 38 U/L Normal 13 - 39 [facility] Comment on above: Performed By: #### 2 64137 #### [facility],[address] [place] [address]755 B/C RATIO 12 ratio Normal 0 - 30 [facility] Comment on above: Performed By: #### 2 57670 #### [facility],[address] [place] [address] 11877 Bilirubin [Mass/Vol] 0.3 mg/dL Normal 0.2 - 1.0 [facility] Comment on above: Performed By: #### 2 55193 #### [facility],[address] [place] [address] 32516 Calcium [Mass/Vol] 8.8 mg/dL Normal 8.5 - 10.1 [facility] Comment on above: Performed By: #### 2 55502 #### [facility],[address] [place] [address] 74116 Chloride [Moles/Vol] 104 mmol/L Normal 98 - 107 [facility] Comment on above: Performed By: #### 2 36319 #### [facility],[address] [place] [address] CMP with eGFR Normal [facility] Comment on above: Result Comment: COMP REHENSIVE METABOLIC PANEL Performed By: #### 2 04712 #### [facility],[address] [place] [address] 99446 CO2 [Moles/Vol] 27.9 mmol/L Normal 21.0 - 32.0 [facility] Comment on above: Performed By: #### 2 [address]22 #### [address] [address] Creatinine [Mass/Vol] 0.75 mg/dL Normal 0.55 - 1.02 [facility] Comment on above: Performed By: #### 2 14237 #### [place] [id number] GFR/1.73 sq M.predicted among non-blacks MDRD (S/P/Bld) [Vol rate/Area] mL/min/{1.73_m2} Normal 60 - 999 [facility] Comment on above: Performed By: #### 2 52496 #### [place] [address] Result Comment: ACCO RDING TO THE NATIONAL KIDNEY DISEASE EDUCATION PROGRAM(NKDE), A NORMAL eGFR IS A VALUE GREATER THAN OR EQUAL TO 60 ML/MIN/1.73 SQ METERS. CHRONIC KIDNEY DISEASE: <60mL/MIN/1.73 SQ METERS KIDNEY FAILURE: <15mL/MIN/1.73 SQ METERS THIS TEST SHOULD ONLY BE USED FOR PATIENTS 18 YEARS OF AGE AND OLDER. Globulin (S) [Mass/Vol] 3.5 g/dL Normal 1.5 - 3.8 [facility] Comment on above: Performed By: #### 2 [address]73 #### [address] [address] Glucose [Mass/Vol] 147 mg/dL High 74 - 106 [facility] Comment on above: Performed By: #### 2 65755 #### [address] [address] Potassium [Moles/Vol] 3.7 mmol/L Normal 3.5 - 5.1 [facility] Comment on above: Performed By: #### 2 39135 #### [address] [address] Protein [Mass/Vol] 7.1 g/dL Normal 6.4 - 8.2 [facility] [facility] Comment on above: Performed By: #### 2 96119 #### [place] [id number] Sodium [Moles/Vol] 141 mmol/L Normal 136 - 145 [facility] Comment on above: Performed By: #### 2 19627 #### [place] [id number] Urea nitrogen [Mass/Vol] 9 mg/dL Normal 7 - 18 [facility] Comment on above: Performed By: #### 2 01921 #### [place] [id number] T4-FREE (FREE THYROXINE)on Free T4 [Mass/Vol] 0.90 ng/dL Normal 0.76 - 1.46 [facility] Comment on above: Result Comment: P otential of falsely elevated results when biotin concentrations are > 10 ng/mL. Performed By: #### 2 99246 #### [address] [address] TSHon 01-19-2023 TSH Qn 4.05 m[IU]/L High 0.35 - 3.74 [facility] Comment on above: Performed By: #### 2 69220 #### [address] [address] HGB A1C [CCL]on 10-18-2022 HbA1c (Bld) [Mass fraction] 5.6 % Normal 4.3-5.6 [facility] Comment on above: Result Comment: Amer [place] Diabetes Association guidelines indicate that patients with HgbA1c in the range 5.7-6.4% are at increased risk for development of diabetes, and intervention by lifestyle modification may be beneficial. HgbA1c greater or equal to 6.5% is considered diagnostic of diabetes. Performed By: #### 2 28862 #### [address] [address] Hemoglobin A0 114 mg/dL Normal [facility] Comment on above: Result Comment: eAG: (Estimated average glucose) is a calculated value from HgbA1c and is product representative of the average blood glucose level in the last 2-3 month period. [facility] [address] [place] [address] Chris Hinojosa III, M.D. [id number] Performed By: #### 2 47669 #### [address] [address] T4-FREE (FREE THYROXINE)on 0 10-17-2022 Free T4 [Mass/Vol] 0.79 ng/dL Normal 0.76 - 1.46 [facility] Comment on above: Result Comment: P otential of falsely elevated results when biotin concentrations are > 10 ng/mL. Performed By: #### 2 81772 #### [address] [address] TSHon 10-17-2022 TSH Qn 5.46 m[IU]/L High 0.35 - 3.74 [facility] Comment on above: Performed By: #### 2 70652 #### [address] [address] [employer] Cytology Reporton 2022 [employer] Cytology Report . Pathology Reports Accession: Collected Date/Time: Received Date/Time: Pathologist: [id number] 07/21/2022 09:53 EDT 07/21/2022 18:00 EDT JOCY REA MD [employer] [facility] Report SPECIMEN: Specimen Description: Liquid Prep w/ HPV Specimen: Cervical/Endocervical Screening or Diagnostic: Screening RELEVANT HISTORY: LMP: menopausal [id number] SPECIMEN ADEQUACY: SATISFACTORY FOR EVALUATION Endocervical/Transform ational zone component present INTERPRETATION/RESULTS : EPITHELIAL CELL ABNORMALITIES, SQUAMOUS Atypical squamous cells [...] and evaluated with the assistance of the [employer] ThinPrep Test Imaging System. Pathology Reports Accession: Collected Date/Time: Received Date/Time: Pathologist: [id number] 07/21/2022 09:53 EDT 07/21/2022 18:00 EDT JOCY REA MD Electronically Signed by Pathology report verified by [facility] Screened by: PANTERA DW Electronically signed by JOCY REA Sign-Out Date: 07/27/2022 11:59 Performing Lab: [facility], [address] [place] [address] Pathology Dept Disclaimer The Pap test is a screening test for cervical cancer. As evidenced by published data, it is subject to both inherent false negative and false positive results. Your patient's results should be interpreted in context with pertinent clinical history including gynecological examination. [facility] HPVon 07-26-2022 HPV Interp Normal See Interp HPVN [facility] Comment on above: Order Comment: Order placed by AP_HPV_ORDER rule from [id number] Result Comment: High Risk HPV Typing: NEGATIVE [...] HPVN Performed By: #### H PV #### [place] [address] HPV Source Cervix Normal [facility] Comment on above: Order Comment: Order placed by AP_HPV_ORDER rule from [id number] Performed By: #### H PV #### [place] [id number] CBC + DIFFon 07-21-2022 Baso # 0.00 x10EE3/UL Normal 0.00 - 0.10 [facility] Comment on above: Performed By: #### 2 26722 #### [facility],[address] [place] [address] Basophils/100 WBC (Bld) 0.9 % Normal 0.0 - 2.0 [facility] Comment on above: Performed By: #### 2 47080 #### [facility],[address] [place] [address] CBC + DIFF Normal [facility] Comment on above: Result Comment: CBC- COMPLETE BLOOD COUNT Performed By: #### 2 40638 #### [facility],[address] [place] [address] EO # 0.20 x10EE3/UL Normal 0.00 - 0.50 [facility] Comment on above: Performed By: #### 2 57920 #### [facility],[address] [place] [address] Eosinophils/100 WBC (Bld) 4.4 % Normal 0.0 - 7.0 [facility] Comment on above: Performed By: #### 2 14372 #### [facility],[address] [place], [place] [id number] Erythrocyte distribution width (RBC) [Ratio] 13.3 % Normal 12.0 - 15.6 [facility] Comment on above: Performed By: #### 2 91548 #### [facility],[address] [place] [address] Hematocrit (Bld) [Volume fraction] 41.2 % Normal 34.0 - 46.0 [facility] Comment on above: Performed By: #### 2 74815 #### [facility],[address] [place] [address] Hemoglobin (Bld) [Mass/Vol] 14.1 g/dL Normal 12.0 - 16.0 [facility] Comment on above: Performed By: #### 2 38205 #### [facility],[address] [place] [address] Lymph # 1.50 x10EE3/UL Normal 0.80 - 2.80 [facility] Comment on above: Performed By: #### 2 14189 #### [facility],[address] [place] [address] Lymphocytes/100 WBC (Bld) 28.9 % Normal 20 .0 - 45.0 [facility] Comment on above: Performed By: #### 2 04408 #### [facility],[address] [place], [place] [id number] MANUAL DIFF N/A Normal [facility] Comment on above: Performed By: #### 2 68394 #### [facility],[address] [place], [place] [id number] MCH (RBC) [Entitic mass] 31 pg Normal 27 - 33 [facility] Comment on above: Performed By: #### 2 75867 #### [facility],[address] [place], [place] [id number] MCHC 34 X10 3 Normal 32 - 36 [facility] Comment on above: Performed By: #### 2 11600 #### [facility],[address] [place] [address] MCV (RBC) [Entitic vol] 91 fL Normal 80 - 99 [facility] Comment on above: Performed By: #### 2 67398 #### [facility],[address] [place] [address] Madera # 0.50 x10EE3/UL Normal 0.20 - 1.00 [facility] Comment on above: Performed By: #### 2 17471 #### [facility],[address] [place] [address] MONOS % 9.5 % Normal 0.0 - 10.0 [facility] Comment on above: Performed By: #### 2 33364 #### [facility],[address] [place] [address] Morphology Michael (Bld) [Interp] N/A Normal [facility] Comment on above: Performed By: #### 2 05769 #### [facility],[address] [place] [address] Neut # 2.80 x10EE3/UL Normal 1.50 - 7.10 [facility] Comment on above: Performed By: #### 2 55695 #### [facility],[address] [place] [address] Neutrophils/100 WBC (Bld) 56.3 % Normal 46 .0 - 76.0 [facility] Comment on above: Performed By: #### 2 77166 #### [facility],[address] [place] [address] PLATELET 242 x10EE3/UL Normal 150 - 450 [facility] Comment on above: Performed By: #### 2 08212 #### [facility],[address] [place] [address] Platelet mean volume (Bld) [Entitic vol] 9.8 fL Normal 6.6 - 10.5 [facility] Comment on above: Result Comment: AUTO MATED DIFFERENTIAL Performed By: #### 2 94524 #### [facility],[address] [place] [address] RBC 4.51 x 10EE6/UL Normal 4.10 - 5.30 [facility] Comment on above: Performed By: #### 2 27993 #### [facility],[address] [place] [address] WBC 5.1 x 10EE3/UL Normal 4.5 - 10.8 [facility] Comment on above: Performed By: #### 2 54692 #### [facility],[address] [place] [address] CMP with eGFRon 07-21-2022 AGE 51 years Normal [facility] Comment on above: Performed By: #### 2 71026 #### [facility],[address] [place] [address] Albumin [Mass/Vol] 4.3 g/dL Normal 3.4 - 5.0 [facility] Comment on above: Performed By: #### 2 08121 #### [facility],[address] [place] [address] Albumin/Globulin [Mass ratio] 1.3 {ratio} Normal 0.9 - 1.6 [facility] Comment on above: Performed By: #### 2 14935 #### [facility],[address] [place] [address] ALK PHOS 103 U/L Normal 46 - 116 [facility] Comment on above: Performed By: #### 2 92649 #### [facility],[address] [place] [address]69 ALT [Catalytic activity/Vol] 71 U/L High 14 - 59 [facility] Comment on above: Performed By: #### 2 46812 #### [facility],[address] [place] [address] Anion gap [Moles/Vol] 14 mmol/L Normal 10 - 20 [facility] Comment on above: Performed By: #### 2 73578 #### [facility],[address] [place] [address] AST [Catalytic activity/Vol] 50 U/L High 13 - 39 [facility] Comment on above: Performed By: #### 2 29024 #### [facility],[address] [place], [place] [id number] B/C RATIO 22 ratio Normal 0 - 30 [facility] Comment on above: Performed By: #### 2 87383 #### [facility],[address] [place] [address] Bilirubin [Mass/Vol] 0.4 mg/dL Normal 0.2 - 1.0 [facility] Comment on above: Performed By: #### 2 25250 #### [facility],[address] [place] [address] Calcium [Mass/Vol] 9.5 mg/dL Normal 8.5 - 10.1 [facility] Comment on above: Performed By: #### 2 85699 #### [facility],[address] [place] [address] Chloride [Moles/Vol] 106 mmol/L Normal 98 - 107 [facility] Comment on above: Performed By: #### 2 26018 #### [facility],[address] [place] [address] 21196 CMP with eGFR Normal [facility] Comment on above: Result Comment: COMP REHENSIVE METABOLIC PANEL Performed By: #### 2 57215 #### [facility],[address] [place] [address]23 CO2 [Moles/Vol] 30.3 mmol/L Normal 21.0 - 32.0 [facility] Comment on above: Performed By: #### 2 09570 #### [facility],[address] [place] [address] Creatinine [Mass/Vol] 0.87 mg/dL Normal 0.55 - 1.02 [facility] Comment on above: Performed By: #### 2 51693 #### [facility],[address] [place] [address] 11613 GFR/1.73 sq M.predicted among non-blacks MDRD (S/P/Bld) [Vol rate/Area] mL/min/{1.73_m2} Normal 60 - 999 [facility] Comment on above: Performed By: #### 2 18655 #### [facility],[address] [place] [address] Result Comment: ACCO RDING TO THE NATIONAL KIDNEY DISEASE EDUCATION PROGRAM(NKDE), A NORMAL eGFR IS A VALUE GREATER THAN OR EQUAL TO 60 ML/MIN/1.73 SQ METERS. CHRONIC KIDNEY DISEASE: <60mL/MIN/1.73 SQ METERS KIDNEY FAILURE: <15mL/MIN/1.73 SQ METERS THIS TEST SHOULD ONLY BE USED FOR PATIENTS 18 YEARS OF AGE AND OLDER. Globulin (S) [Mass/Vol] 3.3 g/dL Normal 1.5 - 3.8 [facility] Comment on above: Performed By: #### 2 85466 #### [address] [address] Glucose [Mass/Vol] 109 mg/dL High 74 - 106 [facility] Comment on above: Performed By: #### 2 15758 #### [address] [address] Potassium [Moles/Vol] 4.1 mmol/L Normal 3.5 - 5.1 [facility] Comment on above: Performed By: #### 2 54052 #### [address] [address] Protein [Mass/Vol] 7.6 g/dL Normal 6.4 - 8.2 [facility] Comment on above: Performed By: #### 2 94384 #### [facility],[address] [place] [address]196 Sodium [Moles/Vol] 146 mmol/L High 136 - 145 [facility] Comment on above: Performed By: #### 2 45787 #### [facility],[address] [place] [address] 38488 Urea nitrogen [Mass/Vol] 19 mg/dL High 7 - 18 [facility] Comment on above: Performed By: #### 2 82072 #### [facility],[address] [place] [address]10 LIPID PROFILEon 07-21-2022 Cholesterol [Mass/Vol] 185 mg/dL Normal 0 - 240 [facility] Comment on above: Performed By: #### 2 79608 #### [facility],[address] [place] [address] 30110 Cholesterol in HDL [Mass/Vol] 67 mg/dL High 40 - 60 [facility] Comment on above: Performed By: #### 2 69695 #### [facility],[address] [place] [address] 61239 Cholesterol in LDL [Mass/Vol] 107 mg/dL Normal 0 - 129 [facility] Comment on above: Performed By: #### 2 07227 #### [facility],[address] [place] [address] 67896 Cholesterol.total/Cholester ol in HDL [Mass ratio] 2.8 {ratio} Normal 0.0 - 5.0 [facility] Comment on above: Performed By: #### 2 91429 #### [facility],[address] [place] [address] 67436 Lipid 1996 panel Normal [facility] Comment on above: Result Comment: LIPI D PROFILE Performed By: #### 2 55641 #### [facility],[address] [place] [address] 65815 Triglyceride [Mass/Vol] 55 mg/dL Normal 0 - 150 [facility] Comment on above: Performed By: #### 2 47493 #### [facility],[address] [place] [address] 15084 T4-FREE (FREE THYROXINE)on 0 07-21-2022 Free T4 [Mass/Vol] 0.62 ng/dL Low 0.76 - 1.46 [facility] Comment on above: Result Comment: P otential of falsely elevated results when biotin concentrations are > 10 ng/mL. Performed By: #### 2 21834 #### [facility],[address] [place] [address] 13735 TSHon 07-21-2022 TSH Qn 10.50 m[IU]/L High 0.35 - 3.74 [facility] Comment on above: Performed By: #### 2 01808 #### [address] [address] VITAMIN D, 25 HYDROXYon 07-02 VitD 25.70 ng/mL Low 30.00 - 100 [facility] Comment on above: Result Comment: 25-O [...] D2 Not Established Performed By: #### 2 64428 #### [facility],[address] [place] [address] 14635 Vital Signs Date Time Vital Sign Value Performing Clinician Facility 11-05-2024 13:01-0400 Body height 172.72 cm Blanquita LOPEZ Work Phone: [facility] 11-05-2024 13:01-0400 Body mass index (BMI) [Ratio] 29.2 kg/m2 Blanquita LOPEZ Work Phone: [facility] 11-05-2024 13:01-0400 Body weight 87.08 kg Blanquita Rapahel [employer] Work Phone: 6(764)936-093820 [place] [address] 11-05-2024 13:01-0400 Diastolic blood pressure 76 mm[Hg] Blanquita Lim [employer] Work Phone: 6(647)006-807805 [place] [address] 11-05-2024 13:01-0400 Heart rate 109 /min Blanquita Lim [employer] Work Phone: 7(583)795-064205 [place] [address] 11-05-2024 13:01-0400 SaO2% (BldA) [Mass fraction] 93 % Blanquita Lim [employer] Work Phone: 4(845)235-082305 [place] [address] 11-05-2024 13:01-0400 Systolic blood pressure 112 mm[Hg] Blanquita Lim [employer] Work Phone: 3(052)969-589505 [place] [address] 10-17-2024 11:33-0400 Body height 172.72 cm Blanquita Lim [employer] Work Phone: 6(907)432-443305 [place] [address] 10-17-2024 11:33-0400 Body mass index (BMI) [Ratio] 30.3 kg/m2 Blanquita Lim [employer] Work Phone: 9(516)380-336705 [place] [address] 10-17-2024 11:33-0400 Body weight 90.43 kg Blanquita Lim [employer] Work Phone: 4(451)104-956105 [place] [address] 10-17-2024 11:33-0400 Diastolic blood pressure 75 mm[Hg] Blanquita Lim [employer] Work Phone: 3(666)237-375305 [place] [address] 10-17-2024 11:33-0400 Heart rate 101 /min Blanquita Lim [employer] Work Phone: 6(188)209-757305 [place] [address] 10-17-2024 11:33-0400 Respiratory rate 15 /min Blanquita Lim [employer] Work Phone: 2(985)279-127205 [place] [address] 10-17-2024 11:33-0400 SaO2% (BldA) [Mass fraction] 93 % Blanquita Lim [employer] Work Phone: 3(374)352-266705 [place] [address] 10-17-2024 11:33-0400 Systolic blood pressure 122 mm[Hg] Blanquita Lim [employer] Work Phone: 0(587)290-126320 [place] [address] 10-16-2024 15:51-0400 Body temperature 98.7 [degF] Blanquita Lim [employer] Work Phone: 0(210)548-219605 [place] [address] 10-16-2024 15:51-0400 Diastolic blood pressure 88 mm[Hg] Blanquita Lim [employer] Work Phone: 9(367)289-435005 [place] [address] 10-16-2024 15:51-0400 Heart rate 105 /min Blanquita Lim [employer] Work Phone: 6(074)032-537205 [place] [address] 10-16-2024 15:51-0400 Respiratory rate 18 /min Blanquita Lim [employer] Work Phone: 0(477)991-114405 [place] [address] 10-16-2024 15:51-0400 SaO2% (BldA) [Mass fraction] 97 % Blanquita Lim [employer] Work Phone: 3(290)185-631805 [place] [address] 10-16-2024 15:51-0400 Systolic blood pressure 135 mm[Hg] Blanquita Lim [employer] Work Phone: 7(321)729-696905 [place] [address] 10-16-2024 13:51-0400 Body height 172.72 cm Blanquita Lim [employer] Work Phone: 0(051)923-813305 [place] [address] 10-16-2024 13:51-0400 Body mass index (BMI) [Ratio] 31 kg/m2 Blanquita Lim [employer] Work Phone: 8(672)334-156405 [place] [address] 10-16-2024 13:51-0400 Body temperature 98.7 [degF] Blanquita Lim [employer] Work Phone: 9(775)983-663405 [place] [address] 10-16-2024 13:51-0400 Body weight 92.53 kg Blanquita Lim [employer] Work Phone: 5(830)710-123705 [place] [address] 10-16-2024 13:51-0400 Diastolic blood pressure 88 mm[Hg] Blanquita Lim [employer] Work Phone: 1(415)266-541505 [place] [address] 10-16-2024 13:51-0400 Heart rate 105 /min Blanquita Lim [employer] Work Phone: 4(196)985-875705 [place] [address] 10-16-2024 13:51-0400 Respiratory rate 18 /min Blanquita Lim [employer] Work Phone: 7(799)760-370305 [place] [address] 10-16-2024 13:51-0400 SaO2% (BldA) [Mass fraction] 97 % Blanquita Lim [employer] Work Phone: 8(069)742-380405 [place] [address] 10-16-2024 13:51-0400 Systolic blood pressure 135 mm[Hg] Blanquita Lim [employer] Work Phone: 4(873)960-341905 [place] [address] 10-08-2024 08:13-0400 Body temperature 98.5 [degF] Blanquita Lim [employer] Work Phone: 3(820)270-764505 [place] [address] 10-08-2024 08:13-0400 Diastolic blood pressure 92 mm[Hg] Blanquita Lim [employer] Work Phone: 3(549)349-349705 [place] [address] 10-08-2024 08:13-0400 Heart rate 99 /min Blanquita Lim [employer] Work Phone: 8(915)136-113205 [place] [address] 10-08-2024 08:13-0400 Respiratory rate 16 /min Blanquita Lim [employer] Work Phone: 6(333)986-579505 [place] [address] 10-08-2024 08:13-0400 SaO2% (BldA) [Mass fraction] 95 % Blanquita Lim [employer] Work Phone: 1(159)724-353805 [place] [address] 10-08-2024 08:13-0400 Systolic blood pressure 142 mm[Hg] Blanquita Lim [employer] Work Phone: 2(661)655-284605 [place] [address] 10-06-2024 18:44-0400 Body height 172.72 cm Blanquita Lim [employer] Work Phone: 8(127)301-630505 [place] [address] 10-06-2024 18:44-0400 Body mass index (BMI) [Ratio] 30 kg/m2 Blanquita Lim [employer] Work Phone: 5(019)129-920705 [place] [address] 10-06-2024 18:44-0400 Body weight 89.7 kg Blanquita Lim [employer] Work Phone: 9(251)315-327005 [place] [address] 10-06-2024 16:57-0400 Body temperature 98.1 [degF] Blanquita Lim [employer] Work Phone: 4(073)890-623520 [place] [address] 10-06-2024 16:57-0400 Diastolic blood pressure 74 mm[Hg] Blanquita Lim [employer] Work Phone: 2(761)614-428905 [place] [address] 10-06-2024 16:57-0400 Heart rate 78 /min Blanquita Lim [employer] Work Phone: 5(283)549-933605 [place] [address] 10-06-2024 16:57-0400 Respiratory rate 15 /min Blanquitaarsalan Lim [employer] Work Phone: 6(353)728-426005 [place] [address] 10-06-2024 16:57-0400 SaO2% (BldA) [Mass fraction] 99 % Blanquita Lim [employer] Work Phone: 8(902)384-690605 [place] [address] 10-06-2024 16:57-0400 Systolic blood pressure 112 mm[Hg] Blanquita Lim [employer] Work Phone: 1(552)104-128205 [place] [address] 10-06-2024 09:10-0400 Body height 172.72 cm Blanquita Lim [employer] Work Phone: 3(893)394-122605 [place] [address] 10-06-2024 09:10-0400 Body mass index (BMI) [Ratio] 30 kg/m2 Blanquita Lim [employer] Work Phone: 0(667)306-804305 [place] [address] 10-06-2024 09:10-0400 Body weight 89.72 kg Blanquita Lim [employer] Work Phone: 1(541)620-712505 [place] [address] 05-23-2024 13:02-0500 Body height 172.72 cm Blanquita Lim [employer] Work Phone: 2(851)580-943405 [place] [address] 05-23-2024 13:02-0500 Body mass index (BMI) [Ratio] 30.7 kg/m2 Blanquita Lim [employer] Work Phone: 2(584)304-047605 [place] [address] 05-23-2024 13:02-0500 Body weight 91.62 kg Blanquita Lim [employer] Work Phone: 3(296)554-056405 [place] [address] 05-23-2024 13:02-0500 Diastolic blood pressure 82 mm[Hg] Blanquita Lim [employer] Work Phone: [facility] 05-23-2024 13:02-0500 Heart rate 70 /min Blanquita Lim [employer] Work Phone: [facility] 05-23-2024 13:02-0500 Respiratory rate 18 /min Blanquita Raphael [employer] Work Phone: [facility] 05-23-2024 13:02-0500 SaO2% (BldA) [Mass fraction] 98 % Blanquita Lim [employer] Work Phone: [facility] 05-23-2024 13:02-0500 Systolic blood pressure 121 mm[Hg] Blanquita Lim [employer] Work Phone: [facility] 08-20-2023 16:48-0400 Body height 172.7 cm Stayci Natterer DO Work Phone: [employer] 08-20-2023 16:48-0400 Body mass index (BMI) [Ratio] 29.19 kg/m2 Stayci Natterer DO Work Phone: [employer] 08-20-2023 16:48-0400 Body temperature 98.2 [degF] Stayci Natterer DO Work Phone: [employer] 08-20-2023 16:48-0400 Body weight 87.09 kg Stayci Natterer DO Work Phone: [employer] 08-20-2023 16:48-0400 Diastolic blood pressure 105 mm[Hg] Stayci Natterer DO Work Phone: [employer] 08-20-2023 16:48-0400 Heart rate 86 /min Stayci Natterer DO Work Phone: [employer] 08-20-2023 16:48-0400 Respiratory rate 18 /min Stayci Natterer DO Work Phone: [employer] 08-20-2023 16:48-0400 SaO2% (BldA) [Mass fraction] 100 % Stayci Natterer DO Work Phone: [employer] 08-20-2023 16:48-0400 Systolic blood pressure 156 mm[Hg] Stayci Natterer DO Work Phone: [employer] 03-03-2023 17:24-0500 Body height 175.3 cm Christi Morgan MD Work Phone: [employer] 03-03-2023 17:24-0500 Body mass index (BMI) [Ratio] 28.35 kg/m2 Christi Morgan MD Work Phone: [employer] [employer] 03-03-2023 17:24-0500 Body temperature 97.39 [degF] Christi Morgan MD Work Phone: [employer] 03-03-2023 17:24-0500 Body weight 87.09 kg Christi Morgan MD Work Phone: [employer] 03-03-2023 17:24-0500 Diastolic blood pressure 94 mm[Hg] Christi Morgan MD Work Phone: [employer] 03-03-2023 17:24-0500 Heart rate 94 /min Christi Morgan MD Work Phone: [employer] 03-03-2023 17:24-0500 Respiratory rate 16 /min Christi Morgan MD Work Phone: [employer] 03-03-2023 17:24-0500 SaO2% (BldA) [Mass fraction] 97 % Christi Morgan MD Work Phone: [employer] 03-03-2023 17:24-0500 Systolic blood pressure 140 mm[Hg] Christi Morgan MD Work Phone: [employer] Encounters Encounter Date Encounter Type Care Provider Facility Start: 12-05-2024 ambulatory Blanquita Hoffman ty:[facility] Start: 12-04-2024 ambulatory Blanquita Hoffman ty:[facility] Start: 11-17-2024 Encounter for other preprocedural examination Alexx Castillo [facility] Start: 11-05-2024 End: 11-05-[address] Alexx Castillo MD -[facility] Work Phone: Start: 11-05-2024 End: 11-05-2024 ambulatory Blanquita Lim [employer] Work Phone: -[facility] Start: 10-30-2024 Patient encounter procedure Christi Shore [employer] -Laboratory Work Phone: Start: 10-30-2024 End: 10-30-2024 ambulatory [facility] Facility:[facility] Start: 10-28-2024 End: 10-28-2024 ambulatory Blanquita Raphael [employer] Work Phone: -Laboratory Breanna Mckeon Start: 10-28-2024 End: 10-28-2024 Patient encounter procedure Mahesh Stauffer [employer] -Laboratory [place] [facility] Start: 10-28-2024 End: 10-28-2024 ambulatory Blanquita Lim Facility:[facility] Start: 10-23-2024 End: 10-23-2024 ambulatory Blanquitaarsalan Lim [employer] Work Phone: -Laboratory [place] [facility] Start: 10-23-2024 End: 10-23-2024 Patient encounter procedure Mackenzie Hernandez [employer] -Laboratory Breanna Mckeon Start: 10-23-2024 End: 10-23-2024 ambulatory Blanquita Raphael Facility:[facility] Start: 10-17-2024 End: 10-17-2024 Patient encounter procedure Christi Shore [employer] -[facility] Work Phone: Start: 10-17-2024 End: 10-17-2024 ambulatory Blanquita Lim [employer] Work Phone: -[facility] Start: 10-16-2024 End: 10-16-2024 Emergency department patient visit Blanquita Raphael [employer] Work Phone: -Emergency Department Work Phone: Start: 10-13-2024 End: 10-13-2024 ambulatory Blanquita Lim [employer] Work Phone: -Laboratory Start: 10-13-2024 End: 10-13-2024 Patient encounter procedure Mackenzie Hernandez [employer] -Laboratory Work Phone: Start: 10-13-2024 End: 10-13-2024 ambulatory Blanquita Lim Facility:[facility] Start: 10-10-2024 End: 10-10-2024 ambulatory Blanquita Lim [employer] Work Phone: -Laboratory Start: 10-10-2024 End: 10-10-2024 Patient encounter procedure Mackenzie Hernandez [employer] -Laboratory Work Phone: Start: 10-10-2024 End: 10-10-2024 ambulatory Mackenzie Hernandez Facility:[facility] Start: 10-08-2024 Non-patient / Non-visit Dr. Barbara Leal -[facility] Work Phone: Start: 10-07-2024 Non-patient / Non-visit Dr. Barbara Leal [facility] Work Phone: Start: 10-06-2024 End: 10-08-2024 Evaluation and management of inpatient Dr. Estrella Gross MD -[facility] 3 Work Phone: Start: 10-06-2024 End: 10-08-2024 ambulatory Estrella Gross Facility:[facility] Start: 10-06-2024 Non-patient / Non-visit Dr. Estrella benavides MD -[facility] Work Phone: Start: 09-10-2024 End: 09-10-2024 ambulatory Blanquita Lim [employer] Work Phone: [facility] Work Phone: Start: 09-10-2024 End: 09-10-2024 Patient encounter procedure [facility] Blanquita Lim [employer] -Laboratory Breanna Mckeon Start: 09-10-2024 End: 09-10-2024 [facility] Facility:[facility] Start: 06-20-2024 End: 06-20-2024 ambulatory Blanquita Raphael [employer] Work Phone: [facility] Work Phone: Start: 06-20-2024 End: 06-20-2024 Patient encounter procedure [facility] Blanquita Lim [employer] -Outpatient Breast Imaging Work Phone: Start: 06-20-2024 End: 06-20-2024 ambulatory [facility] Facility:[facility] Start: 06-17-2024 ambulatory Javier Morales Facility :[facility] Start: 06-17-2024 Non-patient / Non-visit Dr. Geneva Mcclelland MD -[facility] Start: 06-13-2024 End: 06-13-2024 ambulatory [facility] Raphael [employer] Work Phone: [facility] Work Phone: Start: 06-13-2024 End: 06-13-[address] Javier Morales MD -Cardiovascular Services Work Phone: Start: 06-13-2024 End: 06-13-2024 ambulatory Javier Morales [facility] Facility:[facility] Start: 05-23-2024 End: 05-23-[address] Javier Morales MD -[facility] Work Phone: Start: 05-23-2024 End: 05-23-2024 ambulatory [facility] Facility:[facility] Start: 03-24-2024 ambulatory Blanquita Raphael Facili ty:[facility] Start: 03-24-2024 Non-patient / Non-visit Dr. Patricia LIM -[facility] Start: 03-24-2024 End: 03-24-2024 Patient encounter procedure [facility] Blanquita Lim [employer] -Cat Scan, [facility] Work Phone: Start: 03-24-2024 End: 03-24-2024 ambulatory [facility] Facility:[facility] Start: 03-03-2024 Encounter for gynecological examination (general) (routine) without abnormal findings [facility] Start: 01-17-2024 ambulatory Breanna Potter [facility] Facility:[facility] Start: 01-15-2024 End: 01-15-2024 ambulatory Blanquita Lim Facility:[facility] Start: 08-20-2023 End: 08-20-2023 Emergency department patient visit ADITHYAIvan SULLIVAN [facility] Start: 08-20-2023 End: 08-20-2023 Emergency department patient visit Lacie Malik DO Work Phone: [facility] Comment on above: Face pain (Primary D x) Start: 08-20-2023 End: 08-20-2023 Evaluation and management of inpatient Aubreysteph Bobbi SANCHEZ Work Phone: [facility] Start: 08-15-2023 ambulatory ADITHYA [facility] Start: 08-14-2023 End: 08-14-2023 Emergency department patient visit VITA POOLE [facility] Start: 06-18-2023 End: 06-18-2023 ambulatory [facility] Work Phone: Start: 06-18-2023 End: 06-18-2023 Patient encounter procedure [facility]-Outpatient Breast Imaging Work Phone: Start: 03-03-2023 End: 03-03-2023 Emergency department patient visit ADITHYA K NATE [facility] Start: 03-03-2023 End: 03-03-2023 Emergency department patient visit Christi Morgan MD Work Phone: [facility] Comment on above: Acute cystitis witho ut hematuria (Primary Dx) Start: 03-03-2023 End: 03-03-2023 Evaluation and management of inpatient Christi Morgan MD Work Phone: [facility] Start: 01-19-2023 End: 01-19-2023 ambulatory ADITHYA [facility] Start: 10-17-2022 End: 10-17-2022 ambulatory ADITHYA SULLIVAN [facility] Start: 07-21-2022 End: 07-21-2022 ambulatory [facility] Start: 07-21-2022 Encounter for gynecological examination (general) (routine) without abnormal findings [facility] Procedures Date Procedure Procedure Detail Performing Clinician Start: 10-30-2024 Procedure Blanquita sherwood [employer] Work Phone: Comment on above: Test Ordered: [id number] Enhanced Liver Fibrosis (ELF)ELF(TM) Score 12.75 [H ] Reference Range: <9.80ELF(TM) Score Interpretation:Risk cut-offs to assess the likelihood of progressionto cirrhosis and liver-related clinical events within3.9 years following baseline ELF score (IQR: 14.0-22.4months)*: Lower risk < 9.80 Mid risk 9.80 - 11.29 Higher risk >11.29Note: The ELF(TM) Score is a unitless numerical value.*Almas SA, Alireza VW, Elio T, et al. Selonsertibfor patients with bridging fibrosis or compensatedcirrhosis due to OSBORNE: Results from randomized phaseIII STELLAR trials. J Hepatol. 2020 Sep;73(1):26-39.Performed at: [facility] [address] [id number] Director: Last Thomson MD, Phone: [phone] at: [facility] [place] [address] [id number] Director: Kevin Prasad PhD, Phone: [phone] Start: 10-28-2024 Thyroglobulin antibo dy measurement Blanquita Lim [employer] Work Phone: Comment on above: Thyroglobulin Antibo dy measured by Son CoulterMethodologyIt should be noted that the presence of thyroglobulinantibodies may not be pathogenic nor diagnostic, especiallyat very low levels. The assay deck mechanic has found thatfour percent of individuals without evidence of thyroiddisease or autoimmunity will have positive TgAb levels upto 4 IU/mL.Performed at: [facility] [address] [place] [address] [id number] Director: Kevin Prasad PhD, Phone: [phone] Start: 10-23-2024 Measurement of Borre pb burgdorferi antibody Blanquita Lim [employer] Work Phone: Comment on above: Lyme antibodies not detected. Reflex testing is notindicated.No laboratory evidence of infection with B. burgdorferi(Lyme disease). Negative results may occur in patientsrecently infected (less than or equal to 14 days) with B.burgdorferi. If recent infection is suspected, repeattesting on a new sample collected in 7 to 14 days isrecommended. Start: 10-23-2024 FERMÍN measurement Blanquita Lim [employer] Work Phone: Comment on above: Performed at: [place] [id number] Director: Kevin Prasad PhD, Phone: [phone] Start: 10-23-2024 Antibody measurement Randall Lim [employer] Work Phone: Comment on above: The atypical pANCA p attern has been observed in asignificant percentage of patients with ulcerative colitis,primary sclerosing cholangitis and autoimmune hepatitis. Start: 10-23-2024 Antibody to centrome re measurement Blanquita Lim [employer] Work Phone: Comment on above: Test not performed Start: 10-23-2024 Antibody to extracta ble nuclear antigen measurement Blanquita Lim [employer] Work Phone: Comment on above: Test not performed Start: 10-23-2024 Antibody to MARLEN-1 measurement Blanquita Lim [employer] Work Phone: Comment on above: Test not performed Start: 10-23-2024 Antibody to lupus La protein measurement Blanquita Lim [employer] Work Phone: Comment on above: Test not performed Start: 10-23-2024 Antibody to SS-A measurement Blanquita Lim [employer] Work Phone: Comment on above: Test not performed Start: 10-23-2024 Autoantibody measurement Blanquita Lim [employer] Work Phone: Comment on above: Test not performed Start: 10-23-2024 Ceruloplasmin measurement Blanquita Lim [employer] Work Phone: Start: 10-23-2024 Hepatitis A virus an tibody, total measurement Blanquita Lim [employer] Work Phone: Comment on above: Comment: The HAV tot al antibody assay detects both IgG andIgM but does not differentiate between them. A negativeresult suggests susceptibility to infection. A positiveresult could be due to vaccination, previously resolvedinfection or active infection. Testing for HAV IgM shouldbe performed if active HAV infection is suspected. Labcorpoffers profiles that will automatically reflex positive HAVtotal antibody results to IgM (e.g., panel #[id number] HAVAntibody w/ Rfx).Performed at: [address] [id number] Director: Kevin Prasad PhD, Phone: [phone] Start: 10-23-2024 [employer] antibody measurement Blanquita Lim [employer] Work Phone: Comment on above: Test not performed Start: 10-23-2024 Total iron binding c apacity measurement Blanquita Lim [employer] Work Phone: Start: 10-16-2024 X-ray of chest, PA a nd lateral views Blanquita Lim [employer] Work Phone: Start: 10-16-2024 Estimated creatinine clearance Balnquita Lim [employer] Work Phone: Start: 10-10-2024 Creatine kinase MM i soenzyme measurement Blanquita Lim [employer] Work Phone: Start: 10-07-2024 Estimated creatinine clearance Blanquita Lim [employer] Work Phone: Start: 10-06-2024 Hepatitis A virus an tibody, IgM type Blanquita Lim [employer] Work Phone: Comment on above: A negative anti-HAV IgM result suggests no recent orcurrent HAV infection. Start: 10-06-2024 Hepatitis B core ant ibody measurement, IgM type Blanquita Lim [employer] Work Phone: Start: 10-06-2024 Hepatitis C antibody measurement Blanquita Lim [employer] Work Phone: Start: 10-06-2024 SARS-CoV-2, Influenz a & RSV (PCR) Blanquita Lim [employer] Work Phone: Start: 10-06-2024 Urine culture Blanquita keith [employer] Work Phone: Start: 10-06-2024 Ultrasonography of abdomen Blanquita Lim [employer] Work Phone: Start: 10-06-2024 Urnls dip stick/tabl et reagent auto microscopy Blanquita Lim [employer] Work Phone: Start: 10-06-2024 Estimated creatinine clearance Blanquita Lim [employer] Work Phone: Start: 10-06-2024 Computed tomography of abdomen and pelvis with intravenous contrast Blanquita Lim [employer] Work Phone: Start: 06-20-2024 Screening mammography Phani Lim [employer] Work Phone: Start: 05-23-2024 Evaluation of diagno stic study results Blanquita Lim [employer] Work Phone: Start: 03-24-2024 CT angiography of co ronary arteries Blanquita Lim [employer] Work Phone: Start: 06-18-2023 Screening mammography Start: 03-03-2023 Urnls dip stick/tabl et reagent auto microscopy Christi Morgan MD Work Phone: Plan of Treatment Date Care Activity Detail Author Start: 10-28-2024 [facility] Start: 10-23-2024 Measurement of Borrelia burgdorferi antibody [facility] Start: 10-16-2024 [facility] Start: 10-08-2024 Patient discharge [facility] Start: 10-08-2024 [facility] Start: 10-07-2024 Care planning and problem solving actions [facility] Start: 10-07-2024 Prothrombin time [facility] Start: 10-07-2024 Thyroid stimulating hormone measurement [facility] Start: 10-06-2024 Following clinical pathway protocol [facility] Start: 10-06-2024 Assessment of risk of venous thromboembolism [facility] Start: 10-06-2024 Inhalation therapy procedure [facility] Start: 10-06-2024 Insertion of catheter into peripheral vein [facility] Start: 10-06-2024 Measuring intake and output [facility] Start: 10-06-2024 Providing care according to standard [facility] Start: 10-06-2024 Provision of activity privileges [facility] Start: 10-06-2024 [facility] Start: 10-06-2024 Verification routine [facility] Start: 10-06-2024 Admission procedure [facility] Start: 10-06-2024 Bacteria identified in Urine by Culture Urine Culture [facility] Start: 10-06-2024 [facility] Start: 12-02-2023 Influenza vaccination Influenza Vaccine (Season Ended) [facility] Start: 08-20-2023 Hypertension/CHF/CAD Annual BMP Blood Test Hypertension/CHF/CAD Annual BMP Blood Test [facility] Start: 03-03-2023 Adolescent depression screening assessment Depression Screening [facility] Start: 03-03-2023 Hepatitis C screening Hepatitis C Screening [facility] Start: 03-03-2023 HIV screening HIV Screening [facility] Start: 03-03-2023 Lipid panel Cholesterol Screening (Lipid Panel) [facility] Start: 03-03-2023 Screening for malignant neoplasm of breast Breast Cancer Screening [facility] Start: 03-03-2023 Screening for malignant neoplasm of colon Colorectal Cancer Screening: Colonoscopy [facility] Start: 03-03-2023 Social Influencers of Health Screening Social Influencers of Health Screening [facility] Start: 12-01-2022 COVID-19 Vaccine ( season) COVID-19 Vaccine ( season) [facility] Start: 12-01-2022 Influenza vaccination Influenza Vaccine (#1) [facility] Start: 09-28-2019 Zoster Vaccines (1 of 2) Zoster Vaccines (1 of 2) [facility] Start: 1990 Screening for malignant neoplasm of cervix Cervical Cancer Screening: Pap Smear [facility] Start: 1988 DTaP,Tdap,and Td Vaccines (1 - Tdap) DTaP,Tdap,and Td Vaccines (1 - Tdap) [facility] Start: 1988 Hepatitis B Vaccines (1 of 3 - 19+ 3-dose series) Hepatitis B Vaccines (1 of 3 - 19+ 3-dose series) [facility] Start: 03-29-1970 COVID-19 Vaccine (#1) COVID-19 Vaccine (#1) [facility] Start: 1969 Hepatitis B Vaccines (1 of 3 - 3-dose series) Hepatitis B Vaccines (1 of 3 - 3-dose series) [facility] Start: 1969 Screening for malignant neoplasm of breast Breast Cancer Screening [facility] Alanine aminotransfe rase [Enzymatic activity/volume] in Serum or Plasma [facility] Albumin [Mass/volume ] in Serum or Plasma [facility] Alkaline phosphatase [Enzymatic activity/volume] in Serum or Plasma [facility] [id number]. tumor marker [Units/volume] in Serum or Plasma [facility] Anion gap in Serum o r Plasma [facility] Bilirubin, total measurement [facility] BUN/Creatinine ratio [facility] C reactive protein [Mass/volume] in Serum or Plasma [facility] Calcium [Mass/volume ] in Serum or Plasma [facility] Carbon dioxide, tota l [Moles/volume] in Central venous blood [facility] Ceruloplasmin [Mass/ volume] in Serum or Plasma [facility] Comprehensive metabo lic 2000 panel - Serum or Plasma [facility] Creatine kinase [Enz ymatic activity/volume] in Serum or Plasma [facility] Creatinine [Mass/vol ume] in Serum or Plasma [facility] Creatinine [Mass/vol ume] in Urine collected for unspecified duration [facility] Cytoplasmic ANCA Screen [facility] Drugs identified in Urine by Screen method [facility] Erythrocyte mean corpuscular volume determination [facility] Ferritin [Mass/volum e] in Serum or Plasma [facility] Folate [Moles/volume ] in Serum or Plasma [facility] Gamma glutamyl trans ferase measurement [facility] Glucose [Mass/volume ] in Serum or Plasma [facility] Hematocrit [Volume Fraction] of Blood [facility] Hemoglobin [Mass/vol ume] in Blood [facility] Hemoglobin A1c/Hemoglobin.total in Blood [facility] Hepatic function panel [facility] Hepatic function panel [facility] Hepatitis A virus Ab [Presence] in Serum [facility] Hepatitis A virus Ig M Ab [Presence] in Serum [facility] Hepatitis B core ant ibody measurement, IgM type [facility] Hepatitis B surface antigen measurement [facility] Hepatitis B virus co re Ab [Presence] in Serum [facility] Hepatitis B virus menchaca rface Ab [Presence] in Serum [facility] Hepatitis C antibody measurement [facility] Hepatitis C virus RNA assay [facility] IgA [Mass/volume] in Serum or Plasma [facility] Immunoglobulin measurement [facility] INR in Blood by Coag ulation assay [facility] Iron and Iron bindin g capacity panel - Serum or Plasma [facility] Lactate dehydrogenas e measurement [facility] Lactate dehydrogenas e measurement [facility] Lactic acid measurement [facility] Leukocytes [#/volume ] in Blood [facility] Lipid 1995 panel - S sara or Plasma [facility] Lipid 1995 panel - S sara or Plasma [facility] Liver stiffness by US.transient elastography [facility] Mean corpuscular hem oglobin concentration determination [facility] Mean corpuscular hem oglobin determination [facility] Measurement of renal function [facility] Microalbumin [Mass/v olume] in Urine [facility] Mitochondria Ab [Pre sence] in Serum [facility] Myoglobin [Mass/volu me] in Urine [facility] Neutrophil count [facility] Neutrophil percent differential count [facility] Osmolality of Urine [facility] Patient Education [facility] Work Phone: Patient referral [facility] Work Phone: Platelets [#/volume] in Blood [facility] Potassium measurement [facility] Procedure [facility] Protein/Creatinine [ Ratio] in Urine [facility] Prothrombin time [facility] Prothrombin time [facility] Red blood cell count [facility] Red cell distributio n width determination [facility] Serum chloride measurement [facility] Serum immunofixation [facility] Smooth muscle Ab [Pr esence] in Serum [facility] Smooth muscle Ab [Pr esence] in Serum [facility] Sodium measurement [facility] T4 free measurement [facility] Thyroglobulin antibo dy measurement [facility] Thyroid stimulating hormone measurement [facility] Thyroid stimulating hormone measurement [facility] Thyroperoxidase Ab [Units/volume] in Serum or Plasma [facility] Tissue transglutamin ase IgA Ab [Units/volume] in Serum [facility] Total protein measurement [facility] Urea nitrogen [Mass/ volume] in Serum or Plasma [facility] Urinalysis complete panel - Urine [facility] Urine culture [facility] Vitamin B12 measurement [facility] Vitamin D, 25-hydrox y measurement [facility] Payers Date Payer Category Payer Unknown [id number] 2024 Unknown [id number] 2024 Self-pay 2023 Medicaid [employer] [employer] [facility] [place] [id number] 2023-Present [address] [address] [place] [address] [id number]. [id number] 2023 Unknown [id number] 1970 Unknown [id number] 2.16.840.1.464935.3.579.2.651 1970 Unknown [id number] 2.16.840.1.406142.3.579.2.651 1969 Unknown [id number] 2.16.840.1.111105.3.579.2.651 1969 Unknown [id number] 2.16.840.1.766564.3.579.2.651 1969 Unknown [id number] 2.16.840.1.367719.3.579.2.651 1969 Unknown [id number] 2.16.840.1.863607.3.579.2.651 1969 Unknown [id number] 2.16.840.1.172011.3.579.2.1143 Unknown [id number] [facility] [id number] Unknown [id number] 2.16.840.1.942242.3.579.2.462 Unknown [id number] 2.16.840.1.694699.3.579.2.462 Unknown [id number] 2.16.840.1.528463.3.579.2.462 Unknown [id number] 2.16.840.1.980887.3.579.2.462 Unknown [id number] 2..840.1.810332.3.579.2.462 Unknown [id number] 2.16.840.1.271901.3.579.2.462 Unknown [id number] 2.840.1.600661.3.579.2.462 Unknown [id number] 2..840.1.846395.3.579.2.462 Unknown [id number] 2.16.840.1.199188.3.579.2.462 Unknown [id number] 2..840.1.377975.3.579.2.462 Unknown [id number] 2.16.840.1.279086.3.579.2.462 Unknown [id number] 2.840.1.863956.3.579.2.462 Unknown [id number] 2.16.840.1.390701.3.579.2.462 Unknown [id number] 2.16.840.1.023921.3.579.2.462 Unknown [id number] 2.16.840.1.964235.3.579.2.462 Unknown [id number] 2.16.840.1.886700.3.579.2.462 Unknown [id number] 2.16.840.1.139693.3.579.2.462 Unknown [id number] 2.16.840.1.879219.3.579.2.462 Unknown [id number] 2.16.840.1.270955.3.579.2.462 Unknown [id number] 2.16.840.1.704489.3.579.2.462 Unknown [id number] 2.16.840.1.890676.3.579.2.462 Unknown [id number] 2.16.840.1.948547.3.579.2.462 Unknown [id number] 2.16.840.1.427372.3.579.2.462 Unknown 1981 2.16.840.1.544859.3.579.2.462 Social History Date Type Detail Facility Start: 03-03-2023 End: 10-16-2024 Tobacco smoking status NHIS Never smoked tobacco [facility] Start: 03-03-2023 Tobacco use and exposure Smokeless tobacco non-user [facility] Start: 03-03-2023 End: 08-20-2023 Alcohol intake Current drinker of alcohol (finding) [facility] Start: 03-03-2023 Alcohol Comment occassionally [facility] Start: 1970 Sex Assigned At Not on file [facility] Gender identity Not on file [facility] Start: 1970 Sex Assigned At Female [facility] Start: 06-24-2024 End: 06-27-2024 Sex Female (finding) [facility] Medical Equipment Procedure Code Equipment Code Equipment Origin al Text Equipment Identifier Dates Colonoscopy Ligation clip, metallic ([id number] [facility] Start: 10-11-2023 Goals Date Patient Goal Desired Activity /State Functional Status Date Assessment Result Facility 10-08-2024 Functional status Ambulates [facility] Work Phone: Mental Status Date Assessment Result Facility 10-16-2024 Cognitive function Level Of Cons ciousness Awake;Alert;Appropriate;Follow s Commands [facility] Work Phone: 07-09-2025 Cognitive function Voice/Name [facility] Work Phone: Clinical Notes 03-03-2023 to 10-16-2024 Note Date & Type Note Facility 10-16-2024 Radiology Diagnostic study note [facility] Imaging Services [address] [place] [address] Chest PA and Lateral MR#: [id number] Acct: [id number] Name: TAMARA JOSE Rep #: [id number] : 1970 F 54 From: Mick Machado MD PCP: ALEXA Bob, [employer] Status: REG ER Study:Chest PA and Lateral Date of Exam: 10/16/24 Exam# [id number] Ordering Dr: uSzanna Calzada PROCEDURE: CHEST PA AND LATERAL 10/16/2024 REASON FOR EXAM: EDEMA TECHNIQUE: CHEST PA AND LATERAL COMPARISON: None FINDINGS: Hardware: None Heart: Heart size upper limits of normal. Mediastinum: The mediastinal contour is unremarkable. Lungs: Small left pleural effusion with left basilar infiltration and/or atelectasis. Mild atelectasis at the right lung base. Mild vascular congestion. Bones: Degenerative changes are identified within the thoracic spine. RAD/Chest PA and Lateral IMPRESSION: Heart size is upper limits of normal. Mild vascular congestion with the blunting of the left costophrenic angle and bibasilar atelectasis worse at the left lung base. Reading Location: [facility] CC: Bishnu [employer] Blanquita Lim; BRIAN Acosta ~ Library Assistant: Signed [facility] 10-08-2024 Discharge summary Note Date/Time October 08, 2024 8:21a m [facility] Medical Records Department [address] [place] [address] Instructions for Home/Discharge Instructions 10/08/24 0817 MR#: [id number] Acct: [id number] Name: SREE JOSEJANINE Love Rep #:[id number] : 1970 54 From: Bayron Leal DO PCP: ALEXA Bob, [employer] Statu s:ADM IN Discharge Instructions Diet Discharge [...] QHS Referrals / Follow Up: Blanquita Lim, [employer] [Primary Care Provider] - In 1 Week (You will need your liver function tests redrawn, a BMP, and a CPK drawn) Disposition Disposition (needs filled in before D/C Order can be placed): Home, Self Care 10/08/24820<Electronically signed by Bayron Leal DO>Bayron Leal DO CC: [facility] [employer] Blanquita Lim; Dr. Estrella Gross MD ~ Signed [facility] Work Phone: 1(140) 349-483507-09-2025 Discharge summary [facility] Medical Records Department [address] [place] [address] Instructions for Home/Discharge Instructions 10/08/24816 MR#: [id number] Acct: [id number] Name: TAMARA JOSE Rep #:[id number] : 1970 54 From: Bayron Leal DO PCP: ALEXA Bob, [employer] Statu s:ADM IN Discharge Instructions Diet Discharge [...] QHS Referrals / Follow Up: Blanquita Lim, [employer] [Primary Care Provider] - In 1 Week (You will need your liver function tests redrawn, a BMP, and a CPK drawn) Disposition Disposition (needs filled in before D/C Order can be placed): Home, Self Care 10/08/24 0821Bayron Leal DO CC: ALEXA [employer] Blanquita Lim; Dr. Estrella Gross MD ~ [facility]07-09-2025 [facility] Medical Records Department [address] [place] [address] Discharge Summary 10/08/24 08 MR#: [id number] Acct: [id number] Name: TAMARA JOSE Rep #: [id number] : 1970 54 From: Bayron Leal DO PCP: ALEXA Bob, [employer] Status:DIS IN Location: MS3 [id number] Providers Date of Admission: 10/06/24 Date of Discharge: 10/08/24 Primary Care Physician: ALEXA Bob, [employer] Reason For Visit: ELEVATED CK Diagnosis Discharge [...] was seen in the emergency room at [facility] with a chief complaint of abdominal [...] of the liver. Patient was admitted to [place] [address] for rhabdomyolysis and given IV fluids, liver [...] / Lab / M (more content not included)...[facility]07-08-2025 Progress note Author Bayron Leal [facility] Note Date/Time October 07, 2024 4:41p m [facility] Medical Records Department [address] [place] [address] Progress Note - Hospitalist 10/07/24 1633 MR#: [id number] Acct: [id number] Name: TAMARA JOSE Rep #:[id number] : 1970 54 From: Bayron Leal DO PCP: ALEXA Bob, [employer] Statu s:ADM IN Location: [facility] LM019-0 Reason for Visit Reason for Visit: Diagnoses [...] 10/07/24 16:00 10/07/24 16:00 10/07/24 16:00 10/07/24 16:10/07/24 16:00 Oxygen Delivery Method Room Air Weight: 89.7 kg Body Mass Index (BMI) 30.0 Intake & Output: Intake and Output for Last 24 Hours 07/06/25 07/07/25 07/08/25 23:59 23:59 23:59 Intake Total 2500 / [...] (Auto) 64.4, Lymph % (Auto) 12.4 L, [place] % (Auto) 6.9, Eos % (Auto) 15.2 [...] 102 H, Calcium 8.0, Total Bilirubin 0.50, YMR076 H, ALT 283 H, Alkaline Phosphatase 46, Lactate Dehydrogenase 963 H, Total Creatine Kinase 3084 H, Total Protein 4.9 L, Albumin 2.8 L, Globulin 2.1 L, Albumin/Globulin Ratio 1.3, TSH 7.560 H Micro: Microbiology 10/06/24 09:55 Urine, Clean Catch Urine Culture - Preliminary GNR lactose leather shaver 10/06/24 09:55 Mucosa - Nose SARS-CoV-2, Influenza [...] 35 minutes Charges/Coding Visit Charges Inpatient E&M: 86878 Subs Hosp L2 10/07/24 1641 <Electronically signed by Bayron Leal DO> Cosigner Signature (if applicable): CC: ~ Signed [facility] Work Phone: 1(281) 175-959107-08-2025 Progress note [facility] Medical Records Department [address] [place] [address] Progress Note - Hospitalist 10/07/24 1633 MR#: [id number] Acct: [id number] Name: TAMARA JOSE Rep #:[id number] : 1970 54 From: Bayron Leal DO PCP: ALEXA Bob, [employer] Statu s:ADM IN Location: MS3 [id number] Reason for Visit Reason for Visit: Diagnoses [...] (Auto) 64.4, Lymph % (Auto) 12.4 L, [place] % (Auto) 6.9, Eos % (Auto) 15.2 H, Baso % (Auto) 0.7, Absolute Neuts (auto)3.7, Absolute Lymphs (auto) 0.70 L, Nucleated RBC % 0, PT 15.7 H, INR 1.2, Ynkrtp327, Potassium 3.3, Chloride 108, Carbon Dioxide 23.0, Anion Gap 8, BUN 6, Creatinine 0.45 L, EstimCreat Clear Calc 165.51, Est GFR (MDRD) Non-Af 114, BUN/Creatinine Ratio 13.1, Glucose 102 H, Calcium 8.0, Total Bilirubin 0.50, MPL802 H, ALT 283 H, Alkaline Phosphatase 46, Lactate Dehydrogenase 963 H, Total Creatine Kinase 3084 H, Total Protein 4.9 L, Albumin 2.8 L, Globulin 2.1 L, Albumin/Globulin Ratio 1.3, TSH 7.560 H Micro: Microbiology 10/06/24 09:55 Urine, Clean Catch Urine Culture - Preliminary GNR lactose leather shaver 10/06/24 09:55 Mucosa - Nose SARS-CoV-2, Influenza [...] 35 minutes Charges/Coding Visit Charges Inpatient E&M: 10817 Subs Hosp L2 10/07/24 1641 Cosigner Signature (if applicable): CC: ~ Signed [facility]07-07-2025 Discharge summary Author Will Silveira [facility] Note Date/Time October 06, 2024 6:05p m [facility] Medical Records Department [address] [place] [address] Emergency Department Summary 10/06/24 MR#: [id number] Acct: [id number] Name: TAMARA JOSE Ivan Rep #:[id number] : 1970 54 From: Will carrasquillo DO PCP: ALEXA Bob, [employer] Statu s:REG ER Location: ED HPI History [...] intact Psych: Cooperative, appropriate mood and affect [facility] Medical History Hyperlipidemia Wears hearing [...] 75.3 H Lymph % (Auto) 7.6 L [place] % (Auto) 5.9 Eos % (Auto) 10.4 [...] Sl. Cloudy Urine pH 6.0 Ur Specific [place] 1.020 Urine Protein 30 H Urine Glucose [...] in the abdomen or pelvis. [facility] Abdomen Ultrasound 10/06/24 12:09 IMPRESSION: Multiple gallstones. Fatty infiltration of the liver. Reading Location: [facility]- Discharge Plan Triage Chief Complaint: Abd [...] Care Provider: Blanquita Lim Referrals: Blanquita Lim, [employer] [Primary Care Provider] - 3-5 Days Print Language: Mongolian Disposition Disposition: Home, Self Care What to do if you have Problems For any increased pain, shortness of breath, bleeding, nausea or vomiting, chestpain, or any unexpected problems, contact your Primary Care Provider. Call [facility] ([phone]) or report to the closest Emergency Room. Call 911 if necessary. 10/06/241804 <Electronically signed by Will Silveira DO> Cosigner Signature (if applicable): CC: ALEXA [employer] Blanquita Lim ~ Signed [facility] Work Phone: 1(450) 704-247007-07-2025 History and physical note Author Estrella Gross [facility] Note Date/Time October 06, 2024 5:48p m [facility] Medical Records Department [address] [place] [address] H&P Exam - Hospitalist 10/06/24 1727 MR#: [id number] Acct: [id number] Name: TAMARA JOSE Rep #:[id number] : 1970 54 From: Estrella Gross MD PCP: ALEXA Bob, [employer] Statu s:REG ER Location: ED HPI - General General Date of Admission: 10/06/24 Date of Service: 10/06/24 Chief Complaint: Weakness, fatigue, aching muscles HPI Narrative TAMARA JOSE, is a 54-year-old female history of GERD, hypertension, hyperlipidemia who presented to [facility] ED 10/06/2024 with abdominal pain and nausea. [...] at present actually feeling little bit better [facility] Medical History Hyperlipidemia Wears hearing aid Post-menopausal [...] 75.3 H, Lymph % (Auto) 7.6 L, [place] % (Auto) 5.9, Eos % (Auto) 10.4 [...] Sl. Cloudy, Urine pH 6.0, Ur Specific [place] 1.020, Urine Protein 30 H, Urine Glucose [...] in the abdomen or pelvis. Reading Location: [facility] Abdomen Ultrasound 10/06/24 12:09 IMPRESSION: Multiple gallstones. Fatty infiltration of the liver. Reading Location: [facility] Assessment & Plan Assessment/Plan (1) UTI [...] Gross MD Charges/Coding Visit Charges Inpatient E&M: 41471 Init Hosp L2 10/06/24 5845 <Electronically signed by Estrella Gross MD> Cosigner Signature (if applicable): CC: [facility] [employer] Blanquita Lim; Dr. Estrella Gross MD~ Signed [facility] Work Phone: 1([phone]) 502-535307-07-2025 Evaluation note* Diagnosis Onset Date Resolution Status Admit Date Elevated CPK acute October 06 5:28pm Elevated LFTs acute October 06 025 5:28pm UTI (urinary tract infection) acute October 06, 2024 5:28pm [facility] Work Phone: 1(695) 564-125907-07-2025 Evaluation note* Diagnosis Onset Date Resolution Status Admit Date Elevated CPK inactive October 06 5:28pm Elevated LFTs inactive October 06, 2 025 5:28pm UTI (urinary tract infection) inacti ve October 06, 2024 5:28pm [facility] Work Phone: 1(596) 267-572607-07-2025 Evaluation note* Diagnosis Onset Date Resolution Status Admit Date Elevated CPK inactive October 06 5:28pm Elevated LFTs inactive October 06, 2 025 5:28pm UTI (urinary tract infection) inacti ve October 06, 2024 5:28pm Bilateral edema of lower extremity acute October 17, 2024 11:14am Transaminitis acute October 17, 2024 11:14am [facility] Work Phone: [phone]) 632-640407-07-2025 Evaluation note* Diagnosis Onset Date Resolution Status Admit Date Elevated CPK inactive October 06 5:28pm Elevated LFTs inactive October 06, 025 5:28pm UTI (urinary tract infection) inacti ve October 06, 2024 5:28pm Bilateral edema of lower extremity inactive October 17, 2024 11:14am Transaminitis inactive October 17, 2024 11:14am [facility] Work Phone: 1(712) 402-965807-07-2025 Evaluation note* Diagnosis Onset Date Resolution Status Admit Date Elevated CPK chronic October 06 5:28pm Elevated LFTs inactive October 06, 025 5:28pm UTI (urinary tract infection) inacti ve October 06, 2024 5:28pm Bilateral edema of lower extremity inactive October 17, 2024 11:14am Transaminitis inactive October 17, 2024 11:14am [facility] Work Phone: 1(211) 637-402907-07-2025 Evaluation note* Diagnosis Onset Date Resolution Status Admit Date Elevated CPK chronic October 06 5:28pm Elevated LFTs inactive October 06, 025 5:28pm UTI (urinary tract infection) inacti ve October 06, 2024 5:28pm Bilateral edema of lower extremity inactive October 17, 2024 11:14am Transaminitis inactive October 17, 2024 11:14am Peripheral edema acute November 052024 12:51pm Elevated CPK chronic November 05, 2024 12:51pm Elevated liver enzymes chronic Au 2024 12:51pm [facility] Work Phone: 1(132) 262-592307-07-2025 Discharge summary [facility] Medical Records Department [address] [place] [address] Emergency Department Summary 10/06/24 MR#: [id number] Acct: [id number] Name: TAMARA JOSE Ivan Rep #:[id number] : 1970 54 From: Will carrasquillo DO PCP: Blanquita Raphael, VSC, [employer] Statu s:REG ER Location: ED HPI History [...] intact Psych: Cooperative, appropriate mood and affect [facility] Medical History Hyperlipidemia Wears hearing [...] On presentation, patient is no acute distress. June fontanez are stable. Differential diagnosis includes but is [...] ALT of 400. These have significantly increased fromJun2024 on chart review. Direct bilirubin mildly elevated [...] 75.3 H Lymph % (Auto) 7.6 L [place] % (Auto) 5.9 Eos % (Auto) 10.4 [...] Sl. Cloudy Urine pH 6.0 Ur Specific [place] 1.020 Urine Protein 30 H Urine Glucose [...] in the abdomen or pelvis. Reading Location: [facility] Abdomen Ultrasound 10/06/24 12:09 IMPRESSION: Multiple gallstones. Fatty infiltration of the liver. [facility] Dis[facility] Triage Chief Complaint: Abd Pain [...] Care Provider: Blanquita Lim Referrals: Blanquita Lim, [employer] [Primary Care Provider] - 3-5 Days Print Language: Mongolian Disposition Disposition: Home, Self Care What to do if you have Problems For any increased pain, shortness of breath, bleeding, nausea or vomiting, chestpain, or any unexpected problems, contact your Primary Care Provider. Call [facility] ([phone]) or report tothe closest Emergency Room. Call 911 if necessary. 10/06/24 1805 Cosigner Signature (if applicable): CC: ALEXA [employer] Blanquita Lim ~ Signed [facility]07-07-2025 History and physical note [facility] Medical Records Department [address] [place] [address] H&P Exam - Hospitalist 10/06/24 1727 MR#: [id number] Acct: [id number] Name: TAMARA JOSE Rep #:[id number] : 1970 54 From: Estrella Gross MD PCP: ALEXA Bob, [employer] Statu s:REG ER Location: ED HPI - General General Date of Admission: 10/06/24 Date of Service: 10/06/24 Chief Complaint: Weakness, fatigue, aching muscles HPI Narrative TAMARA JOSE, is a 54-year-old female history of GERD, hypertension, hyperlipidemia who presented to [facility] ED 10/06/2024 with abdominal pain and nausea. [...] at present actually feeling little bit better [facility] Medical History Hyperlipidemia Wears hearing aid Post-menopausal [...] 75.3 H, Lymph % (Auto) 7.6 L, [place] % (Auto) 5.9, Eos % (Auto) 10.4 [...] Sl. Cloudy, Urine pH 6.0, Ur Specific [place] 1.020, Urine Protein 30 H, Urine Glucose [...] in the abdomen or pelvis. Reading Location: [facility] Abdomen Ultrasound 10/06/24 12:09 IMPRESSION: Multiple gallstones. Fatty infiltration of the liver. [facility] Assessment & Plan Assessment/Plan (1) UTI [...] Gross MD Charges/Coding Visit Charges Inpatient E&M: 34087 Init Hosp L2 10/06/24 4025 Cosigner Signature (if applicable): CC: ALEXA [employer] Blanquita Lim; Dr. Estrella Gross MD~ Signed [facility]07-07-2025 Radiology Diagnostic study note [facility] Imaging Services [address] [place] [address] Abdomen Limited MR#: [id number] Acct: [id number] Name: TAMARA JOSE Rep #: [id number] : 1970 F 54 From: Mick Machado MD PCP: ALEXA Bob, [employer] Status: REG ER Study:Abdomen Limited Date of Exam: 10/24 Exam# [id number] Ordering Dr: Will Tinsley DO PROCEDURE: ABDOMEN LIMITED 10/06/2024 REASON FOR EXAM: ELEVATED LIVER ENZYMES, ASSESS FOR LIVER/GALLBLADD COMPARISON: Prior CT scan of the abdomen and pelvis done earlier in the day. FINDINGS: Liver: Fatty infiltration of the liver. The liver is not enlarged. It fslhhylg89.2 cm. Gallbladder: Multiple gallstones are seen. Gallbladder wall is not thickened. Common bile duct: Normal measuring 4 mm. . Pancreas: Normal Other: Visualized portions of the right kidney are unremarkable. No right upperquadrant ascites. US/Abdomen Limited IMPRESSION: Multiple gallstones. Fatty infiltration of the liver. [facility] CC: [facility] [employer] Blanquita Lim; Dr. Will Silveira DO ~ Library Assistant: Signed [facility]07-07-2025 Radiology Diagnostic study note [facility] Imaging Services [address] [place], [place] [address] Abdomen/Pelvis W IV Cont ONLY MR#: [id number] Acct: [id number] Name: TAMARA JOSE Rep #: [id number] : 1970 F 54 From: Pet er Peer DO PCP: ALEXA Bob, [employer] Status: REG ER Study:Abdomen/Pelvis W IV Cont ONLY Date of E xam: 10/06/24 Exam# [id number] Ordering Dr: Will Tinsley DO PROCEDURE: ABDOMEN/PELVIS [...] in the abdomen or pelvis. Reading [facility] CC: [facility] JESSICA Lim; Dr. Will Silveira, ~ Library Assistant: Signed [facility]02-21-2025 Evaluation note* Diagnosis Onset Date Resolution Status Admit Date CAD (coronary artery disease) acute May 23, 2024 12:57pm Hyperlipidemia acute May 042024 12:57pm Hypertension chronic May 12:57pm [facility] Work Phone: 1([phone]) 265-979705-20-2024 Hospital Discharge instructions* Discharge Instructions* Marion Wilson NP - 08/20/2023 5:40 PM EDT Have called in a prescription for Percocet to your pharmacy, please take this as directed pain relief. Medicine does contain Tylenol, do not take additional Tylenol when you are taking this medication. Return to the emergency department if you develop any new or worsening symptoms. [facility] [id number] History of Present illness Narrative* Kianna Juan RN - 08/20/2023 4:47 PM EDT Pt had 2 upper teeth extracted today. Now face swollen and having increased pain.pt has been rotating tylenol and ibuprofen with no relief. documented in this encounterRoxbury [facility] [id number] History of Present illness Narrative* Christi Morgan MD - 03/03/2023 5:16 PM EST [facility] Emergency Department Encounter Note Patient Name: Tamara Jose Initial Evaluation: 03/03/2023 : 1970 Patient's PCP: Adithya Sullivan NP Emergency Physician: Christi Morgan MD Chief [...] Yellow (*) Clarity, Urine Hazy (*) Specific [place], Urine 1.010 pH, Urine 7.5 Leukocytes, Urine [...] Christi Morgan MD 03/03/232157 [facility]* Diagnosis Acute cystitis without hematuria- Primary documented in this encounter [facility] noteNo assessment information availableWLicking [facility] Work Phone: Evaluation note* Diagnosis Face pain- Primary Headache documented in this encounter [facility] note* Diagnosis Onset Date Resolution Status Admit Date Elevated CPK acute October 06 5:28pm Elevated LFTs acute October 06 5:28pm UTI (urinary tract infection) acute October 06, 2024 5:28pm [facility] Work Phone: History and physical note Author Estrella Gross [facility] Note Date/Time October 06, 2024 5:48p m [facility] Medical Records Department [address] [place] [address] H&P Exam - Hospitalist 10/06/24 1727 MR#: [id number] Acct: [id number] Name: TAMARA JOSE Rep #:[id number] : 1970 54 From: Estrella Gross MD PCP: ALEXA Bob, [employer] Statu s:REG ER Location: ED HPI - General General Date of Admission: 10/06/24 Date of Service: 10/06/24 Chief Complaint: Weakness, fatigue, aching muscles HPI Narrative TAMARA JOSE, is a 54-year-old female history of GERD, hypertension, hyperlipidemia who presented to [facility] ED 10/06/2024 with abdominal pain and nausea. [...] at present actually feeling little bit better [facility] Medical History Hyperlipidemia Wears hearing aid Post-menopausal [...] 75.3 H, Lymph % (Auto) 7.6 L, [place] % (Auto) 5.9, Eos % (Auto) 10.4 [...] Sl. Cloudy, Urine pH 6.0, Ur Specific [place] 1.020, Urine Protein 30 H, Urine Glucose [...] in the abdomen or pelvis. Reading Location: [facility] Abdomen Ultrasound 10/06/24 12:09 IMPRESSION: Multiple gallstones. Fatty infiltration of the liver. [facility] & Plan Assessment/Plan (1) UTI [...] Gross MD Charges/Coding Visit Charges Inpatient E&M: 31168 Init Hosp L2 10/06/24 2940 <Electronically signed by Estrella Gross MD> Cosigner Signature (if applicable): CC: [facility]-[facility] Blanquita Lim; Dr. Estrella Gross MD~ Signed [facility] Work Phone: Hospital Discharge instructions* Attachments The following attachments cannot be sent through Care Everywhere. * UTI (Urinary Tract Infection): Female (Mongolian) [facility] Additional Instructions [facility]: [facility]: Hospital Discharge instructionsAdditional Instructions You were given a dose of IV Lasix 40 mg. Take the Lasix you have from the [place] clinic at home once daily. Call them for further instructions as they may need to increase it Travella frequently to help decrease the swelling. You also still have high liver enzymes and need to follow-up with a specialist for this.[facility] Work Phone: Reason for referral (narrative)No reason for referral information availableWLicking [facility] Work Phone: Summary Purpose Family History No Family History Records Found Relationship Condition Age at Onset Recorded Date/T ángel grandmother Malignant neoplasm of breast Unknown father Cardiac disease Unknown Myocardial infarction Unknown mother Pulmonary embolism Unknown Advance Directives No Advanced Directives Records Found Advance Directive Response Recorded Date/ Time Do you have a Healthcare Power of Cigar Making Machine Supervisor? No October 06, 2024 9:59am Advance Directive Response Recorded Date/ Time Do you have a Healthcare Power of Cigar Making Machine Supervisor? No October 06, 2024 6:44pm Advance Directive Response Recorded Date/ Time Do you have a Healthcare Power of Cigar Making Machine Supervisor? No October 16, 2024 3:32pm Do you have a Healthcare Power of Cigar Making Machine Supervisor? No October 06, 2024 6:44pm Chief Complaint and Reason for Visit Chief Complaint SCREENING Chief Complaint Admit Date HYPERTENSION March 24, 2024 6:51am HYPERTENSION March 24, 2024 8:10am Moderate Plaque Formation (Raphael) [facility]2024 12:57pm CAD/ASHD June 13, 2024 11: 06am CAD/ASHD June 17, 2024 2:4 2pm SCREENING June 20, 2024 9:3 3am Reason for Visit Admit Date CAD (coronary artery disease) May 042024 12:57pm Hyperlipidemia May 23, 2024 12:57pm Hypertension May 23, 2024 12:57pm Chief Complaint Admit Date Moderate Plaque Formation (Raphael) [facility] 2024 12:57pm CAD/ASHD June 13, 2024 11: [...] ELEVATED CK October 07, 2024 4:33p m Chief Complaint Admit Date SCREENING June 20, 2024 9:3 3am abdom October 06, 2024 5:27p m ELEVATED CK October 06, 2024 5:28p m ELEVATED CK October 07, 2024 4:33p m ELEVATED CK October 08, 2024 8:21a m LABS October 13, 2024 2:30 pm Edema October 16, 2024 1:51 pm Chief Complaint Admit Date SCREENING June 20, 2024 9:3 3am abdom October 06, 2024 5:27p m ELEVATED CK October 06, 2024 5:28p m ELEVATED CK October 07, 2024 4:33p m ELEVATED CK October 08, 2024 8:21a m LABS October 13, 2024 2:30 pm Edema October 16, 2024 1:51 pm ER F ELEVATED LIVER ENZYMES October 17, 2 025 11:14am Reason for Visit Admit Date Elevated CPK October 06, 2024 5:28p m Elevated LFTs October 06, 2024 5:28p m UTI (urinary tract infection) October 06, 2024 5:28pm Bilateral edema of lower extremity October 17, 2024 11:14am Transaminitis October 17, 2024 11:1 4am Chief Complaint Admit Date abdom October 06, 2024 5:27p m ELEVATED CK October 06, 2024 5:28p m ELEVATED CK October 07, 2024 4:33p m ELEVATED CK October 08, 2024 8:21a m LABS October 13, 2024 2:30 pm Edema October 16, 2024 1:51 pm ER F ELEVATED LIVER ENZYMES October 17, 2 025 11:14am Chief Complaint Admit Date abdom October 06, 2024 5:27p m ELEVATED CK October 06, 2024 5:28p m ELEVATED CK October 07, 2024 4:33p m ELEVATED CK October 08, 2024 8:21a m LABS October 13, 2024 2:30 pm Edema October 16, 2024 1:51 pm ER F ELEVATED LIVER ENZYMES October 17, 2 025 11:14am INT LAB ORDERS October 30, 2024 12:3 8pm FU November 05, 2024 12: 51pm Reason for Visit Admit Date Elevated CPK October 06, 2024 5:28p m Elevated LFTs October 06, 2024 5:28p m UTI (urinary tract infection) October 06, 2024 5:28pm Bilateral edema of lower extremity October 17, 2024 11:14am Transaminitis October 17, 2024 11:1 4am Peripheral edema November 05, 2024 12: 51pm Elevated CPK November 05, 2024 12: 51pm Elevated liver enzymes November 05, 2024 12:51pm Additional Source Comments INFORMATION SOURCE (unrecogn ized section and content) DATE CREATED AUTHOR 07/28/2022 [facility] ([place]) DATE CREATED AUTHOR AUTHOR'S ORGANIZ ATION 01/20/2023 [facility] DATE CREATED AUTHOR AUTHOR'S ORGANIZ ATION 08/16/2023 [facility] DATE CREATED AUTHOR AUTHOR'S ORGANIZ ATION 08/22/2023 [facility] DATE CREATED AUTHOR AUTHOR'S ORGANIZ ATION 11/21/2024 [facility] Reason for Visit (unrecogniz ed section and [...] 1758, For 1 dose, Indication: Urinary Tract/Genitourinary 180 (Given - Provid er: Ariel De Dios RN) HYDROcodone-acetaminophen (NORCO) 5-325 mg per tablet 1 tablet (COMPLETED) 1 tablet, oral, Once, On 03/03/23 at 1758, For 1 dose 1803 (Given - Provid er: Ariel De Dios RN) phenazopyridine (PYRIDIUM) tablet 190 mg (COMPLETED) 190 mg, oral, Once, On 03/03/23 at 1758, For 1 dose 1803 (Given - Provid er: Ariel De Dios RN) Scheduled Medication Order 08/18/2023 08/19/2023 08/20/2023 oxyCODONE-acetaminophen (PERCOCET) 5-325 mg per tablet 1 tablet (COMPLETED) 1 tablet, oral, Once, On 08/20/23 at 1715, For 1 dose 1722 (Given - Provid er: Solange Cheek RN) Care Teams (unrecognized sec tion and content) [place] Relationship Specialty Start Date End Date Adithya Sullivan NP [address] [place] [phone] PCP - General Nurse Practitioner 03/03/23 Team Status: Active Member Role Status Dates Dr. Nathanael Joyner MD Family Provider Active [facility] Primary Care Provider A ctive Team Status: Inactive Member Role Status Dates [facility] Primary Care Provider A ctive Blanquita Lim [employer], [employer] Attending Provider, Ant loza Provider Active [place] Relationship Specialty Start Date End Date Adithya Sullivan NP [address] [place] [phone] PCP - General Nurse Practitioner 03/03/23 Team Status: Active Member Role Status Dates Blanquita LIU, [employer] Primary Care Provider Activ e Team Status: Inactive Member Role Status Dates Blanquita SANTANAC, [employer] Primary Care Provider Activ e Start: March 24, 2024 End: March 24, 2024 Blanquita Raphael MAXC, [employer]-C Attending Provider Active Start: March 24, 2024 End: March 24, 2024 Blanquita Lim VSC, [employer] Referring Provider Active Start: March 24, 2024 End: March 24, 2024 Team Status: Active Member Role Status Dates Blanquita Lim VSC, [employer]-C Primary Care Provider Activ e Start: March 24, 2024 Blanquita Lim VSC, [employer]-C Referring Provider Active Start: March 24, 2024 Blanquita Lim VSC, [employer]-C Other Provider Active Start: March 24, 2024 Dr. Jhon Caldwell MD Attending Provider Active S tart: March 24, 2024 Team Status: Inactive Member Role Status Dates Blanquita Lim VSC, [employer] Primary Care Provider Activ e Start: May 23, 2024 End: May 23, 2024 Blanquita Lim VSC, [employer]-C Referring Provider Active Start: May 23, 2024 End: May 23, 2024 Dr. Javier Morales MD Attending Provider Active Start: May 23, 2024 End: May 23, 2024 Team Status: Inactive Member Role Status Dates Blanquita Raphael MAXC, [employer] Primary Care Provider Activ e Start: June 13, 2024 End: June 13, 2024 Dr. Javier Morales MD Attending Provider Active Start: June 13, 2024 End: June 13, 2024 Dr. Javier Morales MD Referring Provider Active Start: June 13, 2024 End: June 13, 2024 Team Status: Active Member Role Status Dates Blanquita SANTANAC, [employer] Primary Care Provider Activ e Start: June 17, 2024 Dr. Javier Morales MD Referring Provider Active Start: June 17, 2024 Dr. Javier Morales MD Other Provider Active St art: June 17, 2024 Dr. Vijay Mcclelland MD Attending Provider Activ e Start: June 17, 2024 Team Status: Active Member Role Status Dates Blanquita Lim VSC, [employer] Primary Care Provider Activ e Start: June 20, 2024 Blanquita SANTANAC, [employer]-C Attending Provider Active Start: June 20, 2024 Blanquita SANTANAC, [employer] Referring Provider Active Start: June 20, 2024 Team Status: Inactive Member Role Status Dates Blanquita LIU, [employer]-C Primary Care Provider Activ e Start: June 20, 2024 End: June 20, 2024 Blanquita LIU, [employer]-C Attending Provider Active Start: June 20, 2024 End: June 20, 2024 Blanquita LIU, [employer]-C Referring Provider Active Start: June 20, 2024 End: June 20, 2024 Team Status: Inactive Member Role Status Dates Blanquita LIU, [employer] Primary Care Provider Activ e Start: September 10, 2024 End: September 10, 2024 Blanquita LIU, [employer]-C Attending Provider Active Start: September 10, 2024 End: September 10, 2024 Team Status: Active Member Role/Relationship Status Dates Blanquita LIU, [employer] Primary Care Provider Activ e Team Status: Inactive Member Role/Relationship Status Dates Blanquita LIU, [employer] Primary Care Provider Activ e Start: June 13, 2024 End: June 13, 2024 Dr. Javier Morales MD Attending Provider Active Start: June 13, 2024 End: June 13, 2024 Dr. Javier Morales MD Referring Provider Active Start: June 13, 2024 End: June 13, 2024 Team Status: Active Member Role/Relationship Status Dates Blanquita LIU, [employer] Primary Care Provider Activ e Start: June 17, 2024 Dr. Javier Morales MD Referring Provider Active Start: June 17, 2024 Dr. Javier Morales MD Other Provider Active St art: June 17, 2024 Dr. Vijay Mcclelland MD Attending Provider Activ e Start: June 17, 2024 Team Status: Inactive Member Role/Relationship Status Dates Blanquita LIU, [employer] Primary Care Provider Activ e Start: June 20, 2024 End: June 20, 2024 Blanquita LIU, [employer]-C Attending Provider Active Start: June 20, 2024 End: June 20, 2024 Blanquita LIU, [employer]-C Referring Provider Active Start: June 20, 2024 End: June 20, 2024 Team Status: Inactive Member Role/Relationship Status Dates Blanquita LIU, [employer]-C Primary Care Provider Activ e Start: September 10, 2024 End: September 10, 2024 Blanquita Raphael VSC, [employer]-C Attending Provider Active Start: September 10, 2024 End: September 10, 2024 Team Status: Active Member Role/Relationship Status Dates Blanquita SANTANAC, [employer] Primary Care Provider Activ e Start: October 06, 2024 Dr. Will Silveira DO Emergency Provider Activ e Start: October 06, 2024 Dr. Estrella Gross MD Attending Provider Active Start: October 06, 2024 Team Status: Active Member Role/Relationship Status Dates Blanquita SANTANAC, [employer] Primary Care Provider Activ e Start: October 06, 2024 Dr. Will Silveira DO Emergency Provider Activ e Start: October 06, 2024 Dr. Estrella Gross MD Admit Provider Active Star t: October 06, 2024 Dr. Estrella Gross MD Attending Provider Active Start: October 06, 2024 Team Status: Inactive Member Role/Relationship Status Dates Blanquita SANTANAC, [employer]-C Primary Care Provider Activ e Start: October 06, 2024 End: October 08, 2024 Dr. Will Silveira , DO Emergency [...] Status: Active Member Role/Relationship Status Dates Blanquita LIU, [employer]-C Primary Care Provider Activ e Start: October 07, 2024 Dr. Will Silveira DO Emergency Provider Activ e Start: October 07, 2024 Dr. Estrella Gross MD Admit Provider Active Star t: October 07, 2024 Dr. Estrella Gross MD Other Provider Active Star t: October 07, 2024 Dr. Bayron Leal DO Attending Provider Active Start: October 07, 2024 Dr. Bayron Leal DO Other Provider Active S tart: October 07, 2024 Team Status: Inactive Member Role/Relationship Status Dates Blanquita SANTANAC, [employer] Primary Care Provider Activ e Start: June 20, 2024 End: June 20, 2024 Blanquita SANTANAC, [employer]-C Attending Provider Active Start: June 20, 2024 End: June 20, 2024 Blanquita LIU, [employer]-C Referring Provider Active Start: June 20, 2024 End: June 20, 2024 Team Status: Inactive Member Role/Relationship Status Dates Blanquita SANTANAC, [employer] Primary Care Provider Activ e Start: September 10, 2024 End: September 10, 2024 Blanquita SANTANAC, [employer]-C Attending Provider Active Start: September 10, 2024 End: September 10, 2024 Team Status: Active Member Role/Relationship Status Dates Blanquita SANTANAC, [employer] Primary Care Provider Activ e Start: October 06, 2024 Dr. Will Silveira , DO Emergency Provider Activ e Start: October 06, 2024 Dr. Estrella Gross MD Attending Provider Active Start: October 06, 2024 Team Status: Inactive Member Role/Relationship Status Dates Blanquita SANTANAC, [employer]-C Primary Care Provider Activ e Start: October 06, 2024 End: October 08, 2024 Dr. Will Silveira , DO Emergency Provider Activ e Start: October 06, 2024 End: October 08, 2024 Dr. Estrella Gross MD Admit Provider Active Star t: October 06, 2024 End: October 08, 2024 Dr. Estrella Gross MD Other Provider Active Star t: October 06, 2024 End: October 08, 2024 Dr. Bayron Leal , DO Attending Provider Active Start: October 06, 2024 End: October 08, 2024 Team Status: Active Member Role/Relationship Status Dates Blanquita SANTANAC, [employer] Primary Care Provider Activ e Start: October 07, 2024 Dr. Will Silveira , DO Emergency Provider Activ e Start: October 07, 2024 Dr. Estrella Gross MD Admit Provider Active Star t: October 07, 2024 Dr. Estrella Gross MD Other Provider Active Star t: October 07, 2024 Dr. Bayron Leal , DO Attending Provider Active Start: October 07, 2024 Dr. Bayron Leal , DO Other Provider Active S tart: October 07, 2024 Team Status: Active Member Role/Relationship Status Dates Blanquita SANTANAC, [employer] Primary Care Provider Activ e Start: October 08, 2024 Dr. Will Silveira , Emergency Provider Activ e Start: October 08, 2024 Dr. Estrella Gross MD Admit Provider Active Star t: October 08, 2024 Dr. Estrella Gross MD Other Provider Active Star t: October 08, 2024 Dr. Bayron Leal , Attending Provider Active Start: October 08, 2024 Dr. Bayron Leal , Other Provider Active S tart: October 08, 2024 Team Status: Inactive Member Role/Relationship Status Dates Blanquita Raphael VSC, [employer] Primary Care Provider Activ e Start: October 10, 2024 End: October 10, 2024 Mackenzie Hernandez , [employer]-C Attending Provider Active Start: October 10, 2024 End: October 10, 2024 Mackenzie Hernandez , [employer]-C Referring Provider Active Start: October 10, 2024 End: October 10, 2024 Team Status: Active Member Role/Relationship Status Dates Blanquita Lim VSC, [employer]-C Primary Care Provider Activ e Start: October 13, 2024 Mackenzie Hernandez , [employer]-C Attending Provider Active Start: October 13, 2024 Mackenzie Hernandez , [employer]-C Referring Provider Active Start: October 13, 2024 Team Status: Inactive Member Role/Relationship Status Dates Blanquita Lim VSC, [employer]-C Primary Care Provider Activ e Start: October 16, 2024 End: October 16, 2024 Dr. Mulugeta Chaney , Emergency Provider Active Start: October 16, 2024 End: October 16, 2024 Team Status: Inactive Member Role/Relationship Status Dates Blanquita Lim VSC, [employer]-C Primary Care Provider Activ e Start: October 17, 2024 End: October 17, 2024 Blanquitahelena Lim VSC, [employer]-C Referring Provider Active Start: October 17, 2024 End: October 17, 2024 Christi Shore P[employer]-C Attending Provider Active Start: October 17, 2024 End: October 17, 2024 Team Status: Inactive Member Role/Relationship Status Dates Blanquita Raphael VSC, [employer]-C Primary Care Provider Activ e Start: October 13, 2024 End: October 13, 2024 Mackenzie Hernandez [employer]-C Attending Provider Active Start: October 13, 2024 End: October 13, 2024 Mackenzie Hernandez [employer]-C Referring Provider Active Start: October 13, 2024 End: October 13, 2024 Team Status: Active Member Role/Relationship Status Dates Blanquita Lim VSC, [employer]-C Primary Care Provider Activ e Start: October 16, 2024 Dr. Mulugeta Chaney , DO Emergency Provider Active Start: October 16, 2024 Team Status: Inactive Member Role/Relationship Status Dates Blanquita Lim VSC, [employer]-C Primary Care Provider Activ e Start: September 10, 2024 End: September 10, 2024 Blanquita SANTANAC, [employer]-C Attending Provider Active Start: September 10, 2024 End: September 10, 2024 Team Status: Active Member Role/Relationship Status Dates Blanquita Lim VSC, [employer]-C Primary Care Provider Activ e Start: October 06, 2024 Dr. Will Silveira DO Emergency Provider Activ e Start: October 06, 2024 Dr. Estrella Gross MD Attending Provider Active Start: October 06, 2024 Team Status: Inactive Member Role/Relationship Status Dates Blanquita SANTANAC, [employer]-C Primary Care Provider Activ e Start: October [...] Status: Active Member Role/Relationship Status Dates Blanquita LIU, [employer]-C Primary Care Provider Activ e Start: October 07, 2024 Dr. Will Silveira DO Emergency Provider Activ e Start: October 07, 2024 Dr. Estrella Gross MD Admit Provider Active Star t: October 07, 2024 Dr. Estrella Gross MD Other Provider Active Star t: October 07, 2024 Dr. Bayron Leal , DO Attending Provider Active Start: October 07, 2024 Dr. Bayron Leal , DO Other Provider Active S tart: October 07, 2024 Team Status: Active Member Role/Relationship Status Dates Blanquita Raphael SANTANAC, [employer]-C Primary Care Provider Activ e Start: October 08, 2024 Dr. Will Silveira , DO Emergency Provider Activ e Start: October 08, 2024 Dr. Estrella Gross MD Admit Provider Active Star t: October 08, 2024 Dr. Estrella Gross MD Other Provider Active Star t: October 08, 2024 Dr. Bayron Leal , DO Attending Provider Active Start: October 08, 2024 Dr. Bayron Leal , DO Other Provider Active S tart: October 08, 2024 Team Status: Inactive Member Role/Relationship Status Dates Blanquita Raphael SANTANAC, [employer]-C Primary Care Provider Activ e Start: October 10, 2024 End: October 10, 2024 Mackenziejeison Hernandez , [employer]-C Attending Provider Active Start: October 10, 2024 End: October 10, 2024 Mcakenzie Tannhof , [employer]-C Referring Provider Active Start: October 10, 2024 End: October 10, 2024 Team Status: Inactive Member Role/Relationship Status Dates Blanquita Raphael VSC, [employer]-C Primary Care Provider Activ e Start: October 13, 2024 End: October 13, 2024 Mackenziejeison Cotohof , [employer]-C Attending Provider Active Start: October 13, 2024 End: October 13, 2024 Mackenziejeison Cotohof , [employer]-C Referring Provider Active Start: October 13, 2024 End: October 13, 2024 Team Status: Inactive Member Role/Relationship Status Dates Blanquita Raphael VSC, [employer]-C Primary Care Provider Activ e Start: October 16, 2024 End: October 16, 2024 Dr. Mulugeta Chaney , Attending Provider Active Start: October 16, 2024 End: October 16, 2024 Dr. Mulugeta Chaney , Emergency Provider Active Start: October 16, 2024 End: October 16, 2024 Team Status: Inactive Member Role/Relationship Status Dates Blanquitahelena Lim VSC, [employer]-C Primary Care Provider Activ e Start: October 17, 2024 End: October 17, 2024 Blanquita LIU, [employer]-C Referring Provider Active Start: October 17, 2024 End: October 17, 2024 Christi Shore NP-C Attending Provider Active Start: October 17, 2024 End: October 17, 2024 Team Status: Inactive Member Role/Relationship Status Dates Blanquita Raphael VSC, [employer]-C Primary Care Provider Activ e Start: October 23, 2024 End: October 23, 2024 Mackenzie Hernandez [employer]-C Attending Provider Active Start: October 23, 2024 End: October 23, 2024 Christi Shore NP-C Other Provider Active St art: October 23, 2024 End: October 23, 2024 Team Status: Active Member Role/Relationship Status Dates Blanquita Lim VSC, [employer]-C Primary Care Provider Activ e Start: October 28, 2024 Mahesh Stauffer VSC, [employer]-C Attending Provider Active Start: October 28, 2024 Team Status: Active Member Role/Relationship Status Dates Blanquita Lim VSC, [employer]-C Primary Care Provider Activ e Start: October 30, 2024 Christi Shore [employer]-C Attending Provider Active Start: October 30, 2024 Christi Shore [employer]-C Referring Provider Active Start: October 30, 2024 Team Status: Inactive Member Role/Relationship Status Dates Blanquitahelena Lim VSC, [employer]-C Primary Care Provider Activ e Start: November 05, 2024 End: November 05, 2024 Blanquita Lim VSC, [employer]-C Referring Provider Active Start: November 05, 2024 End: November 05, 2024 Dr. Alexx Castillo MD Attending Provider Active Start: November 05, 2024 End: November 05, 2024 Team Status: Inactive Member Role/Relationship Status Dates Blanquita Raphael VSC, [employer]-C Primary Care Provider Activ e Start: October 28, 2024 End: October 28, 2024 Mahesh Stauffer VSC, [employer]-C Attending Provider Active Start: October 28, 2024 End: October 28, 2024 Goals (unrecognized section and content) Goals [...] BE BASED ON THE PRIMARY CLINICAL RECORDS. [facility]. provides no warranty or guarantee of the accuracy or completeness of information in this document.
[2024-11-24 18:03] LABS: Hematocrit 42.7 % (37-47); Hemoglobin 14.3 g/dL (12.0-15.0); Immature Granulocytes Count 0.020 X10^3/uL (0.0-0.0); Mean Corp Hgb Conc 33.5 g/dL (32-36); Mean Corpuscular Volume 92.4 fL (81-99); Mean Platelet Vol. 12.0 fl (6.2-12.0); NRBC Flagged by Analyzer 0 % (0-5); Platelet Count 274 K/mm3 (150-450); RBC Distribution Width CV 14.6 % (11.6-14.6); RBC Distribution Width SD 49.9 fl (35.1-43.9); Red Blood Count 4.62 M/mm3 (4.2-5.4); White Blood Count 5.7 K/mm3 (4.4-11.0)
[2024-11-24 18:35] LABS: AST(SGOT) 356 U/L (<=31); Alanine Aminotransfer ALT/SGPT 319 U/L (<=34); Albumin, Serum 3.4 g/dL (3.5-5.0); Alkaline Phosphatase 49 U/L (35-104); Anion Gap 13 (5-15); BUN 12 mg/dL (4-19); BUN/Creat Ratio 29.1 RATIO (10-20); Calcium,Total 9.3 mg/dL (7.6-11.0); Carbon Dioxide 23.1 mmol/L (21.0-32.0); Chloride 99 mmol/L (98-108); Globulin 2.7 g/dL (2.2-4.2); Glucose 114 mg/dL (70-99); Potassium 4.4 mmol/L (3.3-5.1)
[2024-11-24 18:48] LABS: CPK Total, Creatine Kinase 5402 U/L (24-195)
== END | disposition home or self-care (01) ==
LOC: MTLAB 14:37
PROVIDERS: PCP Nurse Practitioner Family; Referring Provider Nurse Practitioner Family; Visit Provider Nurse Practitioner Family
DX: M62.82 Rhabdomyolysis (principal); E03.9 Hypothyroidism, unspecified; R22.43 Localized swelling, mass and lump, lower limb, bilateral
CPT/HCPCS: 36415; 80053; 82550; 84439; 84443; 85025

== ENCOUNTER 2024-12-04 07:38 | Outpatient (CLI) | payer MEDICAID, SELFPAY ==
[2024-12-04] VITALS (13 sets, daily range): BP systolic 81–117; BP diastolic 42–77; PULSE 86–99; RESP 12–18; TEMP 36.5; O2SAT 96–100; BMI 26.6
[2024-12-04 08:11] LABS: Hematocrit 44.9 % (37-47); Hemoglobin 15.0 g/dL (12.0-15.0); Immature Granulocytes Count 0.020 X10^3/uL (0.0-0.0); Mean Corp Hgb Conc 33.4 g/dL (32-36); Mean Corpuscular Volume 92.4 fL (81-99); Mean Platelet Vol. 11.2 fl (6.2-12.0); NRBC Flagged by Analyzer 0 % (0-5); Platelet Count 280 K/mm3 (150-450); RBC Distribution Width CV 14.5 % (11.6-14.6); RBC Distribution Width SD 49.2 fl (35.1-43.9); Red Blood Count 4.86 M/mm3 (4.2-5.4); White Blood Count 6.1 K/mm3 (4.4-11.0)
--- NOTE | 2024-12-04 08:14 | CT_ITS ---
EXAM: CT-guided liver biopsy. CLINICAL HISTORY: Elevated liver enzymes. COMPARISON: Prior CT scan dated October 06, 2024. TECHNIQUE: The procedure as well as the benefits and possible complications including infection and bleeding were explained to the patient. Informed consent was obtained. The patient was in the supine position. The overlying skin was prepped and draped in the usual sterile fashion. Conscious sedation was performed. The patient received 2 mg of Versed and 50 mcg of fentanyl intravenously. Conscious sedation was started at 9:46 a.m. and terminated at 10:02. The patient was independently monitored by the department nurse. Following local anesthetic application, an 18 gauge core biopsy needle system was placed into the anterior aspect of the right lobe of the liver. 4 core biopsies were obtained. The patient tolerated the procedure well. Dose report: CTDI L volume: 25.73. DLP: 365.26 FINDINGS: Successful CT-guided core biopsies of the right lobe of the liver. The patient tolerated the procedure well. CT/Biopsy/Inj or Needle Placement IMPRESSION: Successful CT-guided core biopsies of the right lobe of the liver as described. The patient tolerated the procedure well. No immediate complication was noted. Conscious sedation protocol was followed. Reading Location: [id number]
[2024-12-04 08:48] LABS: Prothrombin Time (Protime)PT. 14.1 SECONDS (11.7-14.9)
--- NOTE | 2024-12-04 08:49 | US_ITS ---
PROCEDURE: ABD LIMITED W/ ELASTOGRAPHY 12/04/2024 REASON FOR EXAM: LIVER FIBROSIS TECHNIQUE: Procedure Code: [id number] Modality: US Procedure: ABD LIMITED W/ ELASTOGRAPHY FINDINGS: LIVER: Size: Unremarkable Length: 16.4 cm Echotexture: Diffusely echogenic with loss of periportal echoes and decreased acoustic penetration. Portal vein is patent and hepatopetal on spectral and color Doppler. Contour: Normal Lesions: None identified Elastography: EQI Med: 9.1 kPa EQI Med Conner: 1.74 m/s IQR/Med: 9.8 %* GALLBLADDER: Normal COMMON BILE DUCT: Normal 5 mm PANCREAS: Normal KIDNEYS: The right kidney measures 7.9 x 4.8 x 3.2 cm. No hydronephrosis. SPLEEN: Normal echotexture measuring 13.3 x 5.5 x 4.4 cm . AORTA: Visualized abdominal aorta is of normal size. IVC: Visualized inferior vena cava is unremarkable. PERITONEAL FINDINGS: No ascites identified. US/ABD Limited w/ Elastography IMPRESSION: 1. Diffuse hepatocellular disease. No mass. No ascites. Borderline splenome breezy. Metavir score: 9.1 kPa - F3 Reference Values: SRU <1.37 m/s (5.7kPa): No to mild fibrosis 1.37 m/s - 2.2 m/s: Moderate to severe fibrosis >2.2 m/s (15kPa): Significant fibrosis / cirrhosis METAVIR Score F2 or higher: 1.34 m/s (5.7kPa) F3 or higher: 1.55 m/s (7.3kPa) F4: 1.80 m/s (10kPa) * If the IQR/Med is >30%, the variance in the measurements is a large and the a ccuracy of the measurement may be in question. Reading Location: [id number]
[2024-12-04 08:58] LABS: Cholesterol 182 mg/dL (<=200); Low Density Lipoprotein Calc. 114 mg/dL; Triglycerides 132 mg/dL; Very Low Density Lipoprotein 26 mg/dL (5-40); cholesterol:hdl ratio screen 4.32
[2024-12-04 09:24] LABS: AST(SGOT) 313 U/L (<=31); Alanine Aminotransfer ALT/SGPT 248 U/L (<=34); Albumin, Serum 3.7 g/dL (3.5-5.0); Alkaline Phosphatase 50 U/L (35-104); Anion Gap 14 (5-15); BUN 10 mg/dL (4-19); BUN/Creat Ratio 26.5 RATIO (10-20); CRP 3.74 mg/L (0.0-3.0); Calcium,Total 9.8 mg/dL (7.6-11.0); Carbon Dioxide 20.7 mmol/L (21.0-32.0); Chloride 101 mmol/L (98-108); Estimated Creatinine Clearance 186.23 ml/min (50-250); Globulin 2.9 g/dL (2.2-4.2); Glucose 106 mg/dL (70-99); LDH 857 U/L (84-246); Potassium 4.4 mmol/L (3.3-5.1); Vitamin B12 477 pg/mL (180-914); Vitamin D,25 Hydroxy 21.0 ng/mL (30-100)
[2024-12-04] MEDS: 0.9% Normal Saline (250mL Bag) 250 ML 15 ML IV (09:45)
[2024-12-04] MEDS: fentaNYL 100 MCG/2 ML Ampul IV (09:46)
[2024-12-04] MEDS: Midazolam 2 MG/2 ML Syringe IV ×2 (09:46→09:56)
[2024-12-04] MEDS: Lidocaine 2% (20 ml mdv) 20 ML Vial INFILT (09:58)
[2024-12-04 11:07] LABS: Pathology Sent to OSU SEE PATHOLOGY REPORT
[2024-12-04 13:14] LABS: Creatinine, Urine (random) 57.90 mg/dL (28.00-217.00); Microalbumin,Random Urine < 12.0 mg/L (<20 mg/L); Protein, Urine (Random) 27.8 mg/dL (0.0-12.0); Protein:Creat Ratio 480 mg/g CRE (0-200)
[2024-12-04 13:17] LABS: Barbiturate Urine NEGATIVE (< 200 ng/mL); Benzodiazepine Urine PRESUMPTIVE POSITIVE (< 200 ng/mL); PCP Urine NEGATIVE (< 25 ng/mL); THC Urine NEGATIVE (< 50 ng/mL)
[2024-12-04 13:31] LABS: Osmolality, Urine 512 mOsm/KG
[2024-12-06 15:08] LABS: Myoglobin, Urine 18 ng/mL (0-13)
[2024-12-09 10:09] LABS: Albumin 3.3 g/dL (2.9-4.4); Anti-Smooth Muscle ABS 15 Units (0-19); GGTP 26 IU/L (0-60); Gamma Globulin 1.1 g/dL (0.4-1.8); HCV Quant. RNA PCR HCV Not Detected IU/mL (.); Immunoglobulin A 245 mg/dL (87-352); Immunoglobulin G 1208 mg/dL (586-1602); Immunoglobulin M 66 mg/dL (26-217); PROEL- TOTAL PROTEIN 6.4 g/dL (6.0-8.5)
== END 2024-12-04 23:59 | disposition home or self-care (01) ==
PROVIDERS: PCP Nurse Practitioner Family; Referring Provider Internal Medicine; Visit Provider Internal Medicine
DX: R74.8 Abnormal levels of other serum enzymes (principal); E78.00 Pure hypercholesterolemia, unspecified; R53.1 Weakness; K74.00 Hepatic fibrosis, unspecified; R74.01 Elevation of levels of liver transaminase levels
CPT/HCPCS: 47000; 36415; 76705; 76981; 77012; 80053; 80061; 80307; 82043; 82105; 82306; 82570; 82607; 82784; 82785; 82977; 83036; 83516; 83605; 83615; 83874; 83935; 84156; 84165; 84439; 84443; 85025; 85610; 86140; 86334; 86706; 87522; 99156; A4216

== ENCOUNTER → 2025-01-29 | Outpatient (CLI) | payer MEDICAID, SELFPAY ==
[2025-01-29 11:34] LABS: Hematocrit 43.3 % (37-47); Hemoglobin 14.1 g/dL (12.0-15.0); Immature Granulocytes Count 0.020 X10^3/uL (0.0-0.0); Mean Corp Hgb Conc 32.6 g/dL (32-36); Mean Corpuscular Volume 91.5 fL (81-99); Mean Platelet Vol. 11.8 fl (6.2-12.0); NRBC Flagged by Analyzer 0 % (0-5); Platelet Count 248 K/mm3 (150-450); RBC Distribution Width CV 14.3 % (11.6-14.6); RBC Distribution Width SD 48.4 fl (35.1-43.9); Red Blood Count 4.73 M/mm3 (4.2-5.4); White Blood Count 6.1 K/mm3 (4.4-11.0)
[2025-01-29 12:44] LABS: Alanine Aminotransfer ALT/SGPT 103 U/L (<=34); Albumin, Serum 3.9 g/dL (3.5-5.0); Alkaline Phosphatase 48 U/L (35-104); Anion Gap 10 (5-15); BUN 9 mg/dL (4-19); Calcium,Total 10.0 mg/dL (7.6-11.0); Chloride 103 mmol/L (98-108); Potassium 4.3 mmol/L (3.3-5.1)
[2025-01-29 13:22] LABS: AST(SGOT) 151 U/L (<=31); BUN/Creat Ratio 15.4 RATIO (10-20); Carbon Dioxide 25.1 mmol/L (21.0-32.0); Globulin 2.7 g/dL (2.2-4.2); Glucose 100 mg/dL (70-99); Iron 141 ug/dL (50-170); Iron Binding Capacity,Total 267 ug/dL (250-450); Iron Binding Capacity,Unsat 126 ug/dL (228-428); Vitamin B12 411 pg/mL (180-914); Vitamin D,25 Hydroxy 21.2 ng/mL (30-100)
[2025-02-03 19:08] LABS: Zinc, Plasma or Serum 50 ug/dL (44-115)
== END | disposition home or self-care (01) ==
LOC: VSLAB 10:38 → LAB 10:42
PROVIDERS: PCP Nurse Practitioner Family; Referring Provider Nurse Practitioner Family; Visit Provider Nurse Practitioner Family
DX: E03.9 Hypothyroidism, unspecified (principal); L65.9 Nonscarring hair loss, unspecified
CPT/HCPCS: 36415; 80053; 82306; 82607; 83540; 83550; 84439; 84443; 84630; 85025

== ENCOUNTER 2025-02-11 13:30 | Outpatient (RCR) | payer MEDICAID, SELFPAY ==
--- NOTE | 2024-11-25 13:32 | HP.PTEVAL ---
Patient's Visit Information Visit Information Visit Information: ERI MEMBRENO is a 54 year old F referred to Physical Therapy by JESSICA Kauffman with a diagnosis of rhabdomyolysis wadesire. Date of Evaluation: 11/25/24 Physical Therapist: Mulugeta Lipscomb, DPT, OCS, CSCS Visit Plan Frequency: 3x /Week Duration: 4-6 Weeks Plan: 3/week for 4-6 weeks IE HEP: swelling mgmt, seated HR/TR 15x, LAQ 15x, seated march to ability 10x all throughout day, walk with assist frequent short distances. Please treat with slow progression of LE and core streength to HEP as safety allows, DF ROM stretch adn UE elevation ROM to HEP, gait training for balance and distance with walker at first, static and dynamic balance, eventual steps. Subjective Subjective: No use of legs due to rhabdomyolysis possibly from cholesterol meds although had been on that for yars. 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 October 03 weekend got really bad and no appetite. Stayed on couch all weekend in early September. Only could work 1 hr and then went to [place] as she was tired adn not able to move. Admitted for 3 days, flushed out liver. Lasix helped. For the last 7 weeks legs are getting weaker. Can only walk 5 feeet or so now, has walker that she uses, waddles. Breanna is taking care of bloodwork and meds. May see an autoimmune specialist or neurologist through [facility]. Home life is living with boyfriend with 3 kids adn mom, 25, 21 and 21. Mom with her all day. Has steps, one to get out and 2 [address] and goes down well, hard to lift legs to go up, needs help. Dresses needs helps due to hard to move arms.Bathroom help from mom to get theere. Needs help up from raised toilet seat. Can stand once she is up. showeer and bathe with help, sponge bath. 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 Hobbies: riding horse, not in a year ago due to selling snow horse. Objective Objective: Pushed back to PT in WC by mom. Sitting in chair leaning against back. Trasnfer out of chair to stand is Min A for FW weeight shift and weakness. Stands mod I with support once up, standing balance fair statically and poor dynamically. Neds assist to walk 30 fest with walker or 40 feet with OPERATIONS SUPPORT ANALYST, can take 2-3 steps without assist but unsafe adn unsteady. stand to sit I. bed trasnfer are challenging but able today with VC but no hands on assist. Some days unable. Hip strngth is 3/5 R adn 3- L flexion and 3 abduction. knee ext 3+ and flexion 3+ B, ankles 3+ B. limited DF to -5 degrees AROM B, PROM to -2 degrees, very tight gastroc. sensation LE to gross light touch is WFL. UE AROM flexion shldrs 100 Actively but WNL passively, weak. 3 in felxion abd. elbows 4- flexion adn ext, 3+ er and IR. ROM elbows and wrsits WFL. Unable to lift foot onto step 0 on 30 SSTS TUG is 29 seconds with wh walker Balance/Special Test Scores Lower Extremity Functional Score: 5 Goals Goal 1:: I appropriate home strength ex to limit future problems, LE strength and DF adn shoulder flexion ROM, core strength. Goal Time Frame: 4-6 Weeks Goal 2:: Exit chair I with UE without assist or VC consistently Goal Time Frame: 4-6 Weeks Goal 3:: Walk with walker 350 feet mod I Goal Time Frame: 4-6 Weeks Goal 4:: stand and take 6 steps without AD without LOB Goal Time Frame: 4-6 Weeks Goal 5:: up and down one flight steps with two rails reciprocally and safely Goal Time Frame: 4-6 Weeks Rehabilitation Potential Physical Therapy Diagnosis: weakness effecting ability to walk and mobilize limiting QOL Rehabilitation Potential: Fair Anticipated Interventions Patient/Client Instruction: Educate patient on: Condition For the Purpose of:: To increase ROM, To improve nutrient delivery to tissue, To improve muscle performance and motor function, To increase tolerance to activity/condition/position, To improve ability of physical actions for home/community/work/leisure and To improve gait and locomotor functions Therapeutic Exercise to Include: Strength training, Postural training, Flexibilty training, Gait and locomotor training, Passive ROM and Active ROM For the Purpose of:: To increase ROM, To improve nutrient delivery to tissue, To improve muscle performance and motor function, To increase tolerance to activity/condition/position, To improve ability of physical actions for home/community/work/leisure and To improve gait and locomotor functions Text: Thank you for the opportunity to evaluate your patient. For Medicare and Medicare HMO plans, please review the plan of care and approve it. It will need to be FAXED BACK to us at [phone] for Medicare purposes. For Medicare only, by signing this I certify the plan of care. Please let me know if there are questions or concerns regarding this plan of care. Physician Signature: Date:
--- NOTE | 2024-12-31 18:10 | HP.PTREVAL_ITS ---
Re-Evaluation Intro: Mackenzie Hernandez, VERA-Bishnu, It has been my pleasure to treat ERI MEMBRENO over the last 13 visits for rhabdomyolysis wakness. Please see the progress note below for an update on the physical therapy plan of care! Subjective Subjective: Pt. reports being 60% better overall. Pt. still having issues with her balance. She has tried some walking without a walker, but only a few steps. Pt. is not back to work yet. Pt. does not feel strong enough yet. Objective Objective/Function: 30 sec sit to stand: 8 with use of UEs. from 22inch height table Pt. is unable to rise without assistance from 18inch (standard chair) Eri has a lot of difficulty raising from a regular chair requiring mod A to complete with use of UEs. Pt. ambulated with CGA with out AD x14' but did have marked lateral postural s way. Pt. ambulated 1x355' with FWW, with 1 standing rest periods. Better stability noted with FWW. Stairs: Pt. was able to negotiate 1 flight of stairs with 2 HR and cGA. Pt. had difficulty with controlled movements with increased difficulty with eccentric lowering especially on the R side, tends to drop the final 1-2 inches due to leg weakness. Pt. continues to have marked globalized weakness effecting her ability to rise, walking, complete all functional mobility. She would benefit from PT to address the marked weakness. I still feel the goals are appropriate and her slow progression is due to the nature of her pathology. Plan Plan Plan: Progress BLE strengthening, especially glutes, hip strengthening and quad strengthening Add in gait progression with AD for endurance progressing to AD as safety allows. Stair negotiation to increase access in home. I am asking for x3 visits per week for 6 weeks to further increase her strengthening an safe functional mobility in order to return to work with increased [place]. Balance/Gait/Functional tests Balance/Special Test Scores Lower Extremity Functional Score: 21 Goals Goals Goal 1:: I appropriate home strength ex to limit future problems, LE strength and DF adn shoulder flexion ROM, core strength. Goal Time Frame: 4-6 Weeks Goal Progress: Progressing Goal 2:: Exit chair I with UE without assist or VC consistently Goal Time Frame: 4-6 Weeks Goal 3:: Walk with wh walker 350 feet mod I Goal Time Frame: 4-6 Weeks Goal Progress: Progressing Goal 4:: stand and take 6 steps without AD without LOB Goal Time Frame: 4-6 Weeks Goal Progress: Progressing Goal 5:: up and down one flight steps with two rails reciprocally and safely Goal Time Frame: 4-6 Weeks Goal Progress: Progressing Goal 6:: LTG: Pt to have Anticipated Interventions Anticipated Interventions Patient/Client Instruction: Educate patient on: Condition For the Purpose of:: To increase ROM, To improve nutrient delivery to tissue, To improve muscle performance and motor function, To increase tolerance to activity/condition/position, To improve ability of physical actions for home/community/work/leisure and To improve gait and locomotor functions Therapeutic Exercise to Include: Strength training, Postural training, Flexibilty training, Gait and locomotor training, Passive ROM and Active ROM For the Purpose of:: To increase ROM, To improve nutrient delivery to tissue, To improve muscle performance and motor function, To increase tolerance to activity/condition/position, To improve ability of physical actions for home/community/work/leisure and To improve gait and locomotor functions Re-Evaluation Ending Re-evaluation ending: Please do not hesitate to contact me at [phone] by phone or if you have questions or concerns regarding this new plan of care! Sincerely, Waqar Naik DPT
--- NOTE | 2025-02-11 15:00 | HP.PTREVAL ---
Re-Evaluation Intro: Mackenzie Hernandez, VERA-Bishnu, It has been my pleasure to treat ERI MEMBRENO over the last 21 visits for rhabdomyolysis wakness. Please see the progress note below for an update on the physical therapy plan of care! Subjective Subjective: Going the right way. I am able to do more. Can get in and out of bed I now, puts own shoes on, gets on and off toilet by self. Driving now. Walks 100 steps in some daysNo AD neeeded. No falls. Stairs at home I with one railing. Holds porch on other side. Up and down steps 2x the other day, tiring but able slowly. Knees and elbows ache. Sleepi is not great sometimes L kne hurts. does not go to basement to get in own bed. Can't use bathroom in basement as it is lower. Would be stuck on lower seat. Dresses self, bathroom I, can't get foot over tub to climb in. Objective Objective/Function: 50 # PF, 15 hip flexion, 28# abd Large L trendeleenberg gait but I with wide CANDIDA waddling without AD in PT today. No pushoff from heels today. Unable to heel raise and weakness in hip flexion, abd and PF limiting normal fucniton. Steps are reciprocal with two rails pulling adn L leg givs out today rescueed by PT from falling.(Vry tired today rechecking after tratment). Tolerated FGA without AD today adn 20 score . Unable to lift lg > 7 inches off floor to step over something, shallow squats and needs UE to exit chair today lacking FW weight shift and strength. Overall significatly bettr walking without AD and climbing steps. Still fucnitonally at deficit with home mobility and compared to normal gait. Fair prognosis for continued improvement. New goals. adn POC throughend year. Plan Plan Plan: 2x/wek for 6-8 more weeks for 1. gym ex progression focussing core, LE including PF and hip abd and postural mm to I as member. 2. Step over higher objects 3. Gait and stair training Balnace training with turns, and challenges. Balance/Gait/Functional tests Balance/Special Test Scores Functional Gait Assessment Score: 20 % Disability: 33.3400 Lower Extremity Functional Score: 21 Goals Goals Goal 1:: I appropriate home strength ex to limit future problems, LE strength and DF adn shoulder flexion ROM, core strength. Goal Time Frame: 4-6 Weeks Goal Progress: Goal Met Goal 2:: Exit chair I with UE without assist or VC consistently Goal Time Frame: 4-6 Weeks Goal Progress: one UE needed approp Goal 3:: Walk with wh walker 350 feet mod I Goal Time Frame: 4-6 Weeks Goal Progress: met no AD. Goal 4:: stand and take 6 steps without AD without LOB Goal Time Frame: 4-6 Weeks Goal Progress: Goal Met Goal 5:: up and down one flight steps with two rails reciprocally and safely Goal Time Frame: 4-6 Weeks Goal Progress: Goal Met Goal 6:: new goals: 1. FGA score 25/30 to limit fall risk 2. I appropriate gym based ex program for mmbership 3. step over 12 inch object with one hand assist to gt into tub. 4. exit chair without UE assist 3x to tolerate 30 SSTS test. Goal Time Frame: 6-8 Weeks Goal Progress: NEW GOALS Anticipated Interventions Anticipated Interventions Patient/Client Instruction: Educate patient on: Condition For the Purpose of:: To increase ROM, To improve nutrient delivery to tissue, To improve muscle performance and motor function, To increase tolerance to activity/condition/position, To improve ability of physical actions for home/community/work/leisure and To improve gait and locomotor functions Therapeutic Exercise to Include: Strength training, Postural training, Flexibilty training, Gait and locomotor training, Passive ROM and Active ROM For the Purpose of:: To increase ROM, To improve nutrient delivery to tissue, To improve muscle performance and motor function, To increase tolerance to activity/condition/position, To improve ability of physical actions for home/community/work/leisure and To improve gait and locomotor functions Re-Evaluation Ending Re-evaluation ending: Please do not hesitate to contact me at [phone] by phone or if you have questions or concerns regarding this new plan of care! Sincerely, Mulugeta Lipscomb, DPT, OCS, CSCS
--- NOTE | 2025-04-07 09:39 | HP.PT.NRP ---
Patient Information Patient Information: ERI MEMBRENO was seen in my office for initial evaluation on 11/25/24. The following Plan of Care was established for this patient: POC Established Initial Frequency: 3x /Week Initial Duration: 4-6 Weeks Anticipated Interventions Patient/Client Instruction: Educate patient on: Condition For the Purpose of:: To increase ROM, To improve nutrient delivery to tissue, To improve muscle performance and motor function, To increase tolerance to activity/condition/position, To improve ability of physical actions for home/community/work/leisure and To improve gait and locomotor functions Therapeutic Exercise to Include: Strength training, Postural training, Flexibilty training, Gait and locomotor training, Passive ROM and Active ROM For the Purpose of:: To increase ROM, To improve nutrient delivery to tissue, To improve muscle performance and motor function, To increase tolerance to activity/condition/position, To improve ability of physical actions for home/community/work/leisure and To improve gait and locomotor functions Last Seen Last Seen: This patient was last seen in our office 02/11/26. Pertinent comments regarding their Physical therapy will appear below: Pt seen 21 visits and new poc set at last visit. Pt was called and stated that she is seing a specialist and will not be returning soon. Will get a new script wheen ready to return. discontinue at this time. At this point I will be discontinuing this patient from physical therapy. I would be happy to see this patient again in the future if found appropriate by the physician. Thank you! Mulugeta Lipscomb, DPT, OCS, CSCS Balance/Gait/Functional tests Balance/Special Test Scores Functional Gait Assessment Score: 20 % Disability: 33.3400 Lower Extremity Functional Score: 21
== END 2025-02-11 19:00 | disposition home or self-care (01) ==
LOC: PT 13:30
PROVIDERS: PCP Nurse Practitioner Family; Referring Provider Nurse Practitioner Family; Visit Provider Nurse Practitioner Family
DX: M62.81 Muscle weakness (generalized) (principal); M62.82 Rhabdomyolysis
CPT/HCPCS: 97110; 97116; 97161; 97164; 97530

== ENCOUNTER 2025-03-01 07:45 | Emergency (ER) | payer MEDICAID, SELFPAY ==
[2025-03-01 07:47] VITALS: BP 126/82; PULSE 126; RESP 16; TEMP 37; O2SAT 100
--- OUTSIDE RECORDS SUMMARY | 2025-03-01 08:22 | XMS RPT_ITS | CCD ---
Author Organization [facility] Care Team Providers Care Pulp Screen Operator Name Role Phone NATE, ADITHYA Admitting Unavailable [...] Consulting Unavailable PROVIDER, UNKNOWN Consulting Unavailable Nate PUBLICITY EXPERT, Adithya K Primary Care Provider NATE, ADITHYA [...] Care Unavailable CHRISTI MORGAN Attending Unavailable Raphael PUBLICITY EXPERT-C, Blanquita Primary Care Provider [phone] Raphael PUBLICITY EXPERT-C, [place]quiat Attending Provider Raphael PUBLICITY EXPERT-C, Blanquita Referring Provider Raphael PUBLICITY EXPERT-C, Blanquita Other Provider Javi LIM, Dr. Ferreira Attending Provider Carmen LIM, Dr. Herrera Attending Provider Carmen LIM, Dr. Herrera Referring Provider Carmen LIM, Dr. Herrera Other Provider [phone] Krystin LIM, Dr. Linares Attending Provider Raphael PUBLICITY EXPERT-C, Blanquita Primary Care Provider Raphael PUBLICITY EXPERT-C, Blanquita Referring Provider Raphael PUBLICITY EXPERT-C, Blanquita Attending Provider Raphael PUBLICITY EXPERT-C, Blanquita Primary Care Provider Carmen LIM, Dr. Herrera Attending Provider Raphael PUBLICITY EXPERT-C, Blanquita Referring Provider Dr. Will Silveira DO Emergency Provider Renato LIM, Dr. De La Rosa Attending Provider Renato LIM, Dr. De La Rosa Admit Provider Renato LIM, Dr. De La Rosa Other Provider Dr. Leo Leal DO Attending Provider Elvis SANCHEZ, Dr. Verma Other Provider Raphael PUBLICITY EXPERT-C, Blanquita Primary Care Provider Tannhof PUBLICITY EXPERT-C, Mackenzie Attending Provider Tannhof PUBLICITY EXPERT-C, Mackenzie Referring Provider Dr. Mulugeta Chaney DO Emergency Provider [phone] Silviano PUBLICITY EXPERT-C, Christi Attending Provider Raphael PUBLICITY EXPERT-C, Blanquita Primary Care Provider Raphael PUBLICITY EXPERT-C, Blanquita Attending Provider Dr. Mulugeta Chaney DO Attending Provider Raphael PUBLICITY EXPERT-C, Blanquita Referring Provider Silviano PUBLICITY EXPERT-C, Christi Other Provider Beam PUBLICITY EXPERT-C, Mahesh Attending Provider Silviano PUBLICITY EXPERT-C, Chirsti Referring Provider Jonathan LIM, Dr. Coffey Attending Provider Raphael PUBLICITY EXPERT-C, Blanquita Primary Care Physician [phone] Raphael PUBLICITY EXPERT-C, Blanquita Attending [facility] Renato LIM, Dr. De La Rosa Attending Physician Renato LIM, Dr. De La Rosa Admitting Physician Renato LIM, Dr. De La Rosa Nurse Practitioner Elvis SANCHEZ, Dr. Verma Attending Physician Elvis SANCHEZ, Dr. Verma Nurse Practitioner David PUBLICITY EXPERT-C, Mackenzie Attending Physician David PUBLICITY EXPERT-C, Mackenzie Referring Provider Dr. Mulugeta Chaney DO Attending Physician Dr. Mulugeta Chaney DO Emergency Department [facility] oma Raphael PUBLICITY EXPERT-C, Blanquita Referring Provider Silviano PUBLICITY EXPERT-C, Christi Attending Physician Silviano PUBLICITY EXPERT-C, Christi Nurse Practitioner Beam PUBLICITY EXPERT-C, Zebususann Attending Physician Silviano PUBLICITY EXPERT-C, Christi Referring Provider Jonathan LIM, Dr. Coffey Attending Physician Jonathan LIM, Dr. Coffey Referring Provider Mulugeta Chaney Attending Unavailable Raphael VSC, Blanquita Primary Care Unavailabl e Raphael VSC, Blanquita Primary Care Unavailabl e Leo Leal Attending Unavailable Estrella Gross Admitting Unavailable Estrella Gross Consulting Unavailable Mackenzie Hernandez Referring Unavailable Raphael VSC, Blanquita Consulting Unavailabl e Mackenzie Hernandez Attending Unavailable [facility], [facility] Primary Care Unavailabl e Raphael VSC, [facility] Primary Care Unavailabl e Leo Leal Attending Unavailable Estrella Gross Admitting Unavailable Estrella Gross Consulting Unavailable Leo Leal Consulting Unavailable Raphael C, [facility] Primary Care Unavailabl Estrella Woodward Attending Unavailable [facility], [facility] Primary Care UnavailJavier Santoyo Attending Unavailable Javier Morales Referring Unavailable Raphael C, [facility] Referring Unavailabl e Raphael VSC, [facility] Primary Care Unavailabl e Alexx Castillo Attending Unavailable David, Mackenzie Attending Unavailable Chicaholawrence, Mackenzie Referring Unavailable Raphael [facility], [facility] Primary Care Unavailabl e David, Mackenzie Attending Unavailable [facility], [facility] Primary Care Unavailabl e Raphael VSC, [facility] Primary Care Unavailabl e Alexx Castillo Attending Unavailable Jonathan Alexx Referring Unavailable Raphael [facility], [facility] Referring Unavailabl e Raphael VSC, [facility] Primary Care UnavailJavier Santoyo Attending Unavailable [facility], [facility] Referring Unavailabl e Raphael VSC, [facility] Consulting Unavailabl e Jhon Caldwell Attending Unavailable [facility], [facility] Primary Care Unavailabl e Raphael C, [facility] Primary Care Unavailabl Vijay Gao Attending UnavailJavier Santoyo Consulting Unavailable Javier Morales Referring Unavailable Raphael C, [facility] Referring Unavailabl e Raphael VSC, [facility] Primary Care Unavailabl e Christi Shore Attending Unavailable [facility], [facility] Attending Unavailabl e Raphael VSC, [facility] Primary Care Unavailabl e Raphael VSC, [facility] Referring Unavailabl e Raphael VSC, [facility] Attending Unavailabl e Raphael VSC, [facility] Primary Care Unavailabl e Raphael VSC, [facility] Primary Care Unavailabl e Mackenzie Hernandez Attending Unavailable Christi Shore Consulting Unavailable Mackenzie Hernandez Referring Unavailable Raphael C, [facility] Primary Care Unavailabl e Chicaholawrence, Mackenzie Attending Unavailable TannhoMackenzie bravo Referring Unavailable Raphael [facility], [facility] Primary Care Unavailabl e Mackenzie Hernandez Attending Unavailable Raphael VSC, Blanquita Referring Unavailabl e Raphael VSC, [place] Primary Care Unavailabl e Jonathan, Alexx Attending Unavailable Tannhof, Mackenzie Attending Unavailable Tannhof, Mackenzie Referring Unavailable Raphael VSC, [place] Primary Care Unavailabl e Raphael VSC, [place] Primary Care Unavailabl e Jonathan, Alexx Attending Unavailable Jonathan, Alexx Referring Unavailable Raphael VSC, Blanquita Referring Unavailabl e Raphael VSC, Blanquita Attending Unavailabl e Raphael VSC, [place] Primary Care Unavailabl e Tannhof, Mackenzie Attending Unavailable Raphael VSC, [place] Primary Care Unavailabl e Tannhof, Mackenzie Referring Unavailable Raphael VSC, [place] Primary Care Unavailabl e SilvianoChristi devries Attending Unavailable Christi Shore Referring Unavailable Raphael [facility], [facility] Primary Care Unavailabl e Beam VS, Zebulun Attending Unavailable Allergies Allergy Classification Reported Allergen(s) Allergy Type Date of Onset Reaction(s) Facility (2 sources) bee venom Drug allergy (disorder) [facility] Repository (2 sources) Sulfonamides (Antibiotic) Drug allergy (disorder) [facility]ository (3 sources) Sulfonamides (Antibiotic); Translations: [SULFA (SULFONAMIDE ANTIBIOTICS)] Propensity to adverse reactions [address] [facility] (18 sources) Bee Venom Protein (Honey Bee); Translations: [BEE VENOM PROTEIN (HONEY BEE)] Propensity to adverse reactions 3 Anaphylaxis [facility] (15 sources) Sulfonamides (Antibiotic) Allergy to substance [address] [facility] (1 source) Sulfonamides (Antibiotic) Drug allergy (disorder) [address] [facility] Repository (1 source) bee venom protein (honey bee) Drug allergy (disorder) [address] [facility] Repository Medications Current Medications Medication Drug Class(es) Dates Sig (Normalized) Sig (Original) amLODIPine 10 mg oral tablet (20 sources) Dihydropyridine Calcium Channel Wyatt Start: 05-23-2024 Start: 07-13-2023 End: 05-23-2024 amLODIPine (NORV ASC) 10 mg tablet Take by mouth 1 (one) time each day. Active aspirin 81 mg oral tablet (20 sources) Platelet Aggregation Inhibitor, Nonsteroidal Anti-inflammatory Drug Start: 10-17-2024 Start: 10-02-2023 End: 10-08-2024 take 1 tablet by mouth once joslyn [...] 500 mg cholecalciferol 0.05 mg oral capsule (15 sources) Vitamin D Start: 07-13-2023 Cranberry (15 sources) Non-Standardized Food Allergenic Extract, Non-Standardized Plant Allergenic Extract Start: 10-02-2023 Start: 10-02-2023 take 1 capsule by mo uth once daily Cranberry 500 mg capsule Active 500 mg PO DAILY October 02, 2023 12:00am administer with a meal fluticasone propionate 0.05 mg/actuat metered dose nasal spray (20 sources) Corticosteroid Start: 07-13-2023 End: 04-29-2024 Start: 07-13-2023 End: 04-29-2024 Fluticasone Propionate 50 mc g/actuation spray,suspension Active 2 NMA INTRANASAL DAILY April 29, 2024 11:38am take 1 spray(s) nasa l route once daily fluticasone propionate (FLONASE) 50 mcg/actuation nasal spray Administer 1 spray into each nostril 1 (one) time each day. Shake gently. Before first use, prime pump. After use, clean tip and replace cap. Active furosemide 20 mg oral tablet (8 sources) Loop Diuretic Start: 10-17-2024 icosapent ethyl 1000 mg oral capsule (8 sources) Start: 10-17-2024 levothyroxine sodium 0.1 mg oral tablet (4 sources) l-Thyroxine Start: 12-04-2024 Start: 12-04-2024 End: 12-04-2024 lisinopril 40 mg oral tablet (17 sources) Angiotensin Converting Enzyme Inhibitor Start: 07-13-2023 take 1 tablet by mouth once joslyn y lisinopriL (PRINIVIL,ZESTRIL) 10 mg tablet Take 1 tablet (10 mg total) by mouth 1 (one) time each day. Active Completed/Discontinued Medications Medication Drug Class(es) Dates [...] 08/20/2023 08/23/2023 Active amoxicillin 500 mg oral caps ule (15 sources) Penicillin-class Antibacterial Start: 09-07-2023 End: 10-02-2023 atorvastatin 10 mg oral tabl et (20 sources) HMG-CoA Reductase Inhibitor Start: 10-06-2024 End: 10-08-2024 Start: 05-23-2024 End: 06-19-2024 Start: 07-13-2023 End: 05-23-2024 ibuprofen 400 mg oral tablet (15 sources) Nonsteroidal Anti-inflammatory Drug Start: 09-07-2023 End: 10-02-2023 loratadine 10 mg oral tablet (17 sources) Start: 07-13-2023 End: 05-23-2024 omeprazole 20 mg delayed release oral capsule (17 sources) Proton Pump Inhibitor Start: 07-13-2023 End: 12-04-2024 take 1 capsule by mouth once dmitriy ly omeprazole (PriLOSEC) [address] capsule Take 1 capsule (10 mg total) by mouth 1 (one) time each day. Do not crush or chew. Active phenazopyridine hydrochlorid e 95 mg oral tablet (2 sources) Start: 03-03-2023 End: 03-03-2023 phenazopyridine (PYRIDIUM) tablet 190 mg Start: 03-03-2023 End: 03-05-2023 take 1 tablet by mouth three times daily phenazopyridine (PYRIDIUM) 200 mg tablet Take 1 tablet (200 mg total) by mouth 3 (three) times a day for 2 days. 6 tablet 0 03/03/2023 03/05/2023 Active simvastatin 20 mg oral table t (20 sources) HMG-CoA Reductase Inhibitor Start: 10-06-2024 End: 10-08-2024 Start: 07-13-2023 End: 05-23-2024 take 1 tablet by nakia th at bedtime simvastatin (ZOCOR) 10 mg tablet Take 1 tablet (10 mg total) by mouth at bedtime. Active vitamin e 180 mg oral capsul e (15 sources) Start: 07-13-2023 End: 10-08-2024 Problems Active Problems Problem Classification Problem Date Documented Date Episodic/Chronic Allergic reactions (2 sources) Allergy status to sulfonamides status; Translations: [Latex allergy status] Onset: 08-14-2023 Episodic Coronary atherosclerosis and other heart disease (20 sources) Coronary arteriosclerosis; Translations: [Atherosclerotic heart disease of [place] coronary artery without angina pectoris] Onset: 05-23-2024 05-23-2024 Chronic Diabetes mellitus without complication (2 sources) Impaired fasting glucose; Translations: [Impaired fasting glucose] Onset: 10-17-2022 Episodic Disorders of lipid metabolism (20 sources) Hyperlipidemia; Translations: [Hyperlipidemia, unspecified] Onset: 05-23-2024 05-23-2024 Chronic Disorders of teeth and jaw (3 sources) Other specified disorders of teeth and supporting structures; Translations: [Other specified disorders of teeth and supporting structures] Onset: 08-14-2023 Episodic E Codes: Fall (1 source) Unspecified fall, initial encounter; Translations: [Unspecified fall, initial encounter] Onset: 02-11-2025 Episodic Esophageal disorders (15 sources) Gastroesophageal reflux disease; Translations: [Gastro-esophageal reflux [...] on above: ON MEDS Genitourinary congenital anomalies (15 sources) Congenital anomaly of the kidney; Translations: [...] [Headache, unspecified] Onset: 08-20-2023 Malaise and fatigue (5 sources) Asthenia; Translations: [Weakness] 10-29-2024 Episodic Other aftercare (1 source) [facility] [place] [facility] therapy; Translations: [Other [place] [facility] [place] ([place] drug therapy] Onset: 08-14-2023 Episodic Other connective tissue disease (2 sources) Rhabdomyolysis Episodic Other connective tissue disease (2 sources) Rhabdomyolysis; Translations: [Rhabdomyolysis] Onset: 11-28-2024 Episodic Other connective tissue disease (1 source) Muscle weakness (generalized); Translations: [Muscle weakness (generalized)] Onset: 02-11-2025 Episodic Other liver diseases (20 sources) Increased creatine kinase level; Translations: [Abnormal levels of other serum enzymes] 10-06-2024 Episodic Other liver diseases (20 sources) Enzyme level - finding; Translations: [Elevated transaminase measurement] 10-16-2024 Episodic Other liver diseases (10 sources) Elevated liver enzymes level; Translations: [Abnormal levels of other serum enzymes] 11-05-2024 Episodic Other liver diseases (2 sources) Abnormal levels of other serum enzymes; Translations: [Abnormal levels of other serum enzymes] Onset: 12-04-2024 Episodic Other skin disorders (1 source) Localized swelling, mass and lump, lower limb, bilateral; Translations: [Localized swelling, mass and lump, lower limb, bilateral] Onset: 01-30-2025 Episodic Residual codes; unclassified (18 sources) Bilateral lower limb edema; Translations: [Localized edema] 10-16-2024 Episodic Residual codes; unclassified (9 sources) Peripheral edema; Translations: [Localized edema] 10-29-2024 Episodic Thyroid disorders (3 sources) Hypothyroidism, unspecified; Translations: [Hypothyroidism, unspecified] Onset: 01-19-2023 Chronic Unclassified (9 sources) You will need your liver function tests redrawn, a BMP, and a CPK drawn Unclassified (2 sources) Elevation of levels of liver transaminase levels; Translations: [Elevation of levels of liver transaminase levels] Onset: 11-06-2024 Past or Other Problems Problem Classification Problem Date Documented Da te Episodic/Chronic Abdominal pain (1 source) Unspecified abdominal pain; Translations: [Unspecified abdominal pain] Onset: 10-30-2024 Episodic Other nutritional; endocrine; and metabolic disorders (1 source) Abnormal weight gain; Translations: [Abnormal weight gain] Onset: 10-28-2024 Episodic Other screening for suspected conditions (not mental disorders or infectious disease) (20 sources) Patient encounter status; Translations: [Encounter for screening for malignant neoplasm of colon] Onset: 06-27-2024 07-13-2023 Episodic Comment on above: Patient is [...] post procedure results reporting. Residual codes; unclassified (1 source) Localized edema; Translations: [Localized edema] Onset: 10-21-2024 Episodic Urinary tract infections (20 sources) Acute cystitis; Translations: [Acute cystitis without hematuria] Onset: 03-03-2023 03-03-2023 Episodic Results Test Name Value Interpretation Reference Range Facility Re-Evaluation - PT (1)on Re-Evaluation - PT (1) Normal [facility] Zinc, Plasma or Serumon 11- ZINC,PLASMA/SER 50 ug/dL Normal 44-[address] [facility] Comment on above: Order Comment: Test( s) [id number], Plasma or Serumwas developed and its performance characteristicsdetermined by [facility]. It has not been cleared or approvedby the Food and Drug Administration. Result Comment: Dete ction Limit = 5Performed at: [address] [id number] Director: Last Thomson MD, Phone: [phone] Performed By: #### L 503.6030, L506.1001, L500.4050, L503.0106, L100.0100, L3300.9900, L506.0400, L501.9520 ####[facility] [address] [place], [place], [phone]) CBC W/Diff, Automatedon 10-3 -2024 Absolute Lymph 0.92 X10 3/uL Normal 0.83-4.[address] [facility] Comment on above: Performed By: #### L 503.6030, L506.1001, L500.4050, L503.0106, L100.0100, L3300.9900, L506.0400, L501.9520 ####[facility] [address] [place], [place], [phone]) Absolute Neut 4.2 X10 3/uL Normal 2.0-7.[address] [facility] Comment on above: Performed By: #### L 503.6030, L506.1001, L500.4050, L503.0106, L100.0100, L3300.9900, L506.0400, L501.9520 ####[facility] [address] [place], [place], [phone] Basophils/100 WBC (Bld) 0.7 % Normal 0-1 [facility] Comment on above: Performed By: #### L 503.6030, L506.1001, L500.4050, L503.0106, L100.0100, L3300.9900, L506.0400, L501.9520 ####[facility] [address] [place], [address] Eosinophils/100 WBC (Bld) 5.8 % High 0-[address] [facility] Comment on above: Performed By: #### L 503.6030, L506.1001, L500.4050, L503.0106, L100.0100, L3300.9900, L506.0400, L501.9520 ####[facility] [address] [place], [address] Erythrocyte distribution width (RBC) [Ratio] 14.3 % Normal 11.6-14.[address] [facility] Comment on above: Performed By: #### L 503.6030, L506.1001, L500.4050, L503.0106, L100.0100, L3300.9900, L506.0400, L501.9520 ####[facility] [address] [place], [address] Hematocrit (Bld) [Volume fraction] 43.3 % Normal 37-[address] [facility] Comment on above: Performed By: #### L 503.6030, L506.1001, L500.4050, L503.0106, L100.0100, L3300.9900, L506.0400, L501.9520 ####[facility] [address] [place], [address] Hemoglobin (Bld) [Mass/Vol] 14.1 g/dL Normal 12.0-15.[address] [facility] Comment on above: Performed By: #### L 503.6030, L506.1001, L500.4050, L503.0106, L100.0100, L3300.9900, L506.0400, L501.9520 ####[facility] [address] [place], [address] IG% 0.300 Normal 0.0-0.[address] [facility] Comment on above: Result Comment: IG% - Immature Granulocytes (promyelocytes, myelocytes andmetamyelocytes) > 1% indicates that a LEFT SHIFT is Present. Performed By: #### L 503.6030, L506.1001, L500.4050, L503.0106, L100.0100, L3300.9900, L506.0400, L501.9520 ####[facility] [address] [place], [address] Lymphocytes/100 WBC (Bld) 15.2 % Low 19-[address] [facility] Comment on above: Performed By: #### L 503.6030, L506.1001, L500.4050, L503.0106, L100.0100, L3300.9900, L506.0400, L501.9520 ####[facility] [address] [place], [address] MCH (RBC) [Entitic mass] 29.8 pg Normal 27.0-32.[address] [facility] Comment on above: Performed By: #### L 503.6030, L506.1001, L500.4050, L503.0106, L100.0100, L3300.9900, L506.0400, L501.9520 ####[facility] [address] [place], [address] MCHC (RBC) [Mass/Vol] 32.6 g/dL Normal 32-36 [facility] Comment on above: Performed By: #### L 503.6030, L506.1001, L500.4050, L503.0106, L100.0100, L3300.9900, L506.0400, L501.9520 ####[facility] [address] [place], [address] MCV (RBC) [Entitic vol] 91.5 fL Normal 81-99 [facility] Comment on above: Performed By: #### L 503.6030, L506.1001, L500.4050, L503.0106, L100.0100, L3300.9900, L506.0400, L501.9520 ####[facility] [address] [place], [address] Monocytes/100 WBC (Bld) 9.1 % Normal 0-10 [facility] Comment on above: Performed By: #### L 503.6030, L506.1001, L500.4050, L503.0106, L100.0100, L3300.9900, L506.0400, L501.9520 ####[facility] [address] [place], [address] Neutrophils/100 WBC (Bld) 68.9 % Normal 47-[address] [facility] Comment on above: Performed By: #### L 503.6030, L506.1001, L500.4050, L503.0106, L100.0100, L3300.9900, L506.0400, L501.9520 ####[facility] [address] [place], [address] Nucleated RBC (Bld) [#/Vol] 0 10*3/uL Normal 0-[address] [facility] Comment on above: Performed By: #### L 503.6030, L506.1001, L500.4050, L503.0106, L100.0100, L3300.9900, L506.0400, L501.9520 ####[facility] [address] [place], [address] Platelet mean volume (Bld) [Entitic vol] 11.8 fL Normal 6.2-12.[address] [facility] Comment on above: Performed By: #### L 503.6030, L506.1001, L500.4050, L503.0106, L100.0100, L3300.9900, L506.0400, L501.9520 ####[facility] [address] [place], [address] Platelets (Bld) [#/Vol] 248 10*3/uL Normal 150-[address] [facility] Comment on above: Performed By: #### L 503.6030, L506.1001, L500.4050, L503.0106, L100.0100, L3300.9900, L506.0400, L501.9520 ####[facility] [address] [place], [address] RBC (Bld) [#/Vol] 4.73 10*6/uL Normal 4.2-5.4 [facility] Comment on above: Performed By: #### L 503.6030, L506.1001, L500.4050, L503.0106, L100.0100, L3300.9900, L506.0400, L501.9520 ####[facility] [address] [place], [address] RDW SD 48.4 fl High 35.1-43.[address] [facility] Comment on above: Performed By: #### L 503.6030, L506.1001, L500.4050, L503.0106, L100.0100, L3300.9900, L506.0400, L501.9520 ####[facility] [address] [place], [address] WBC (Bld) [#/Vol] 6.1 10*3/uL Normal 4.4-11.0 [facility] Comment on above: Performed By: #### L 503.6030, L506.1001, L500.4050, L503.0106, L100.0100, L3300.9900, L506.0400, L501.9520 ####[facility] [address] [place], [address] Comprehensive Metabolic Prof [facility] 01-29-2025 Albumin/Globulin [Mass ratio] 1.5 {ratio} Normal 0.9-2.[address] [facility] Comment on above: Result Comment: AMENDED REPORT 01/29/251321 A/G previously reported as: 1.3 RATIO Performed By: #### L 503.6030, L506.1001, L500.4050, L503.0106, L100.0100, L3300.9900, L506.0400, L501.9520 ####[facility] [address] [place], [place], [id number] AST [Catalytic activity/Vol] 151 U/L High <=[address] [facility] Comment on above: Result Comment: AMENDED REPORT 01/29/251321 AST previously reported as: 149 H U/L Performed By: #### L 503.6030, L506.1001, L500.4050, L503.0106, L100.0100, L3300.9900, L506.0400, L501.9520 ####[facility] [address] [place], [address] Bilirubin [Mass/Vol] 0.58 mg/dL Normal 0.00-1.30 [facility] Comment on above: Result Comment: AMENDED REPORT 01/29/251321 T BILI previously reported as: 0.56 mg/dL Performed By: #### L 503.6030, L506.1001, L500.4050, L503.0106, L100.0100, L3300.9900, L506.0400, L501.9520 ####[facility] [address] [place], [place], [id number] BUN/CRE 15.4 RATIO Normal - [facility] Comment on above: Result Comment: AMENDED REPORT 01/29/251321 BUN/CRE previously reported as: 23.0 H RATIO Performed By: #### L 503.6030, L506.1001, L500.4050, L503.0106, L100.0100, L3300.9900, L506.0400, L501.9520 ####[facility] [address] [place], [address] CO2 [Moles/Vol] 25.1 mmol/L Normal 21.0-32.[address] [facility] Comment on above: Result Comment: AMENDED REPORT 01/29/251321 CO2 previously reported as: 25.0 mmol/L Performed By: #### L 503.6030, L506.1001, L500.4050, L503.0106, L100.0100, L3300.9900, L506.0400, L501.9520 ####[facility] [address] [place], [place], [phone](769) Creatinine [Mass/Vol] 0.60 mg/dL Low 0.70-1.20 [facility] Comment on above: Result Comment: AMENDED REPORT 01/29/251321 CREAT,SERUM previously reported as: 0.40 L mg/dL Performed By: #### L 503.6030, L506.1001, L500.4050, L503.0106, L100.0100, L3300.9900, L506.0400, L501.9520 ####[facility] [address] [place], [place], [phone] Globulin (S) [Mass/Vol] 2.7 g/dL Normal 2.2-4.2 [facility] Comment on above: Result Comment: AMENDED REPORT 01/29/251321 GLOB previously reported as: 3.0 g/dL Performed By: #### L 503.6030, L506.1001, L500.4050, L503.0106, L100.0100, L3300.9900, L506.0400, L501.9520 ####[facility] [address] [place], [address] Glucose [Mass/Vol] 100 mg/dL High 70-99 [facility] Comment on above: Result Comment: AMENDED REPORT 01/29/251321 GLU previously reported as: 108 H mg/dL Performed By: #### L 503.6030, L506.1001, L500.4050, L503.0106, L100.0100, L3300.9900, L506.0400, L501.9520 ####[facility] [address] [place], [address] T PROT 6.5 g/dL Normal 5.9-8.[address] [facility] Comment on above: Result Comment: AMENDED REPORT 01/29/251321 T PROT previously reported as: 6.9 g/dL Performed By: #### L 503.6030, L506.1001, L500.4050, L503.0106, L100.0100, L3300.9900, L506.0400, L501.9520 ####[facility] [address] [place], [address] Iron+Iron Binding Capacityon 01-29-2025 Iron [Mass/Vol] 141 ug/dL Normal 50-[address] [facility] Comment on above: Performed By: #### L 503.6030, L506.1001, L500.4050, L503.0106, L100.0100, L3300.9900, L506.0400, L501.9520 ####[facility] [address] [place], [address] IRON SATURATION 52.8 Normal 13-[address] [facility] Comment on above: Performed By: #### L 503.6030, L506.1001, L500.4050, L503.0106, L100.0100, L3300.9900, L506.0400, L501.9520 ####[facility] [address] [place], [address] TIBC 267 ug/dL Normal 250-[address] [facility] Comment on above: Performed By: #### L 503.6030, L506.1001, L500.4050, L503.0106, L100.0100, L3300.9900, L506.0400, L501.9520 ####[facility] [address] [place], [address] UIBC 126 ug/dL Low 228-[address] [facility] Comment on above: Performed By: #### L 503.6030, L506.1001, L500.4050, L503.0106, L100.0100, L3300.9900, L506.0400, L501.9520 ####[facility] [address] [facility] [place], [address] T4 Free Directon 01-29-2025 T4 FREE DIRECT 1.40 ng/dL Normal 0.76-1.[address] [facility] Comment on above: Order Comment: N Performed By: #### L 503.6030, L506.1001, L500.4050, L503.0106, L100.0100, L3300.9900, L506.0400, L501.9520 ####[facility] [address] [facility] [place], [address] Thyroid Stim Hormone (TSH)on 01-29-2025 TSH 2.420 uIU/mL Normal 0.300-4.[address] [facility] Comment on above: Result Comment: AMENDED REPORT 01/29/25 1322 TSH previously reported as: 2.320 uIU/mL Performed By: #### L 503.6030, L506.1001, L500.4050, L503.0106, L100.0100, L3300.9900, L506.0400, L501.9520 ####[facility] [address] [place], [address] Vitamin B12on 01-29-2025 Cobalamin (Vitamin B12) [Mass/Vol] 411 pg/mL Normal 180-[address] [facility] Comment on above: Result Comment: AMENDED REPORT 01/29/252 Vitamin B12 previously reported as: 450 pg/mL Performed By: #### L 503.6030, L506.1001, L500.4050, L503.0106, L100.0100, L3300.9900, L506.0400, L501.9520 ####[facility] [address] [place], [address] Vitamin D,25 Hydroxyon 01-29 Vitamin D 25-OH 21.2 ng/mL Low 30-[address] [facility] Comment on above: Result Comment: Radha min D StatusDeficiency: <20 ng/mL (50nmol/L)Insufficiency: 20-30 ng/mL (50-75 nmol/L)Sufficiency: 30-100 ng/mL (75-250 nmol/L)Toxicity: >100 ng/mL (>250 nmol/L) AMENDED REPORT 01/29/252 Vitamin D 25-OH previously reported as: 20.7 L ng/mLVitamin D StatusDeficiency: <20 ng/mL (50nmol/L)Insufficiency: 20-30 ng/mL (50-75 nmol/L)Sufficiency: 30-100 ng/mL (75-250 nmol/L)Toxicity: >100 ng/mL (>250 nmol/L) Performed By: #### L 503.6030, L506.1001, L500.4050, L503.0106, L100.0100, L3300.9900, L506.0400, L501.9520 ####[facility] [address] [place], [address] Re-Evaluation - PT (1)on Re-Evaluation - PT (1) Normal [facility] Gastroenterology Visit Repor ton 12-24-2024 Gastroenterology Visit Report Normal [facility] L3410.9992on 12-24-2024 [facility] Misc. COMMENT Normal . [facility] Comment on above: Order Comment: [id number] 7Autoimmune hepatitis SERUM RF Result Comment: Test Ordered: [id number] Autoimmune Liver Profile (RDL)Test(s) 187443-Vjhf-Uejwx/Kidney Ab (RDL); 265662-Aejl-Gwlbwhcfhpqhe Ab by IFAwas developed and its performance characteristicsdetermined by [facility]. It has not been cleared or approvedby the Food and Drug Administration.Anti-Nuclear Ab by IFA (RDL) Negative ESECF Reference Range: NegativeANCA by IFA (RDL) Negative ESECF Reference Range: NegativeAnti-Chromatin Ab, IgG (RDL) <20 Units ESECF Reference Range: <20Anti-Liver/Kidney Ab (RDL) <20 Units ESECF Reference Range: <20 Negative: <20 Equivocal: 20 - 25 Positive: >25Anti-Mitochondrial M2 Ab (RDL) <20 Units ESECF Reference Range: <20 Negative: <20 Equivocal: 20 - 25 Positive: >25Anti-Soluble Liver Ag Ab (RDL) <9.0 Units ESECF Reference Range: 0.0 - 20.0 Negative: 0.0 - 20.0 Equivocal: 20.1 - 24.9 Positive: >24.9Anti-Smooth Muscle Ab by IFA <1:20 ESECF Reference Range: <1:20Anti-Mitochondrial Ab by IFA <1:20 ESECF Reference Range: <1:20 Interpretation for Anti-Chromatin: Negative: <20 Moderate Positive: 20 - 60 Strong Positive: >60Performed at: [facility] [address] [id number] Director: Kirt Farrar MD, Phone: [phone] at: [address] [id number] Director: Kevin Prasad PhD, Phone: [phone] Performed By: #### L 506.1001, L7000.7000, L506.0400, L503.0106, L3300.0700, L300.3900, L500.4050, L803.2200, L3410.9992, L3200.1100, L501.6710, L400.0001, L501.9985, L501.9520, L3100.3425, L500.4100, L3890.6202, L504.2610, L501.5101, L503.6005 ####[facility] [address] [place], [place], [phone] AFP, Tumor Markeron 12-10-19 AFP TUMOR LEO 4.3 ng/mL Normal 0.0-9.[address] [facility] Comment on above: Order Comment: N Result Comment: Authorea Electrochemiluminescence Immunoassay(ECLIA)Values obtained with different assay methods or kits cannotbe used interchangeably. Results cannot be interpreted asabsolute evidence of the presence or absence of malignantdisease.This test is not interpretable in females. Performed By: #### L 506.1001, L7000.7000, L506.0400, L503.0106, L3300.0700, L300.3900, L500.4050, L803.2200, L3410.9992, L3200.1100, L501.6710, L400.0001, L501.9985, L501.9520, L3100.3425, L500.4100, L3890.6202, L504.2610, L501.5101, L503.6005 ####[facility] [address] [place], [address] Anti-Smooth Muscle ABSon ANTISMOOTH MUSC 15 Units Normal 0-[address] [facility] Comment on above: Result Comment: Nega tive 0 - 19 Weak positive 20 - 30 Moderate to strong positive >30 Actin Antibodies are found in 52-85% of patients with autoimmune hepatitis or chronic active hepatitis and in 22% of patients with primary biliary cirrhosis. Performed By: #### L 506.1001, L7000.7000, L506.0400, L503.0106, L3300.0700, L300.3900, L500.4050, L803.2200, L3410.9992, L3200.1100, L501.6710, L400.0001, L501.9985, L501.9520, L3100.3425, L500.4100, L3890.6202, L504.2610, L501.5101, L503.6005 ####[facility] [address] [facility] 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 [facility] Comment on above: Performed By: #### L 506.1001, L7000.7000, L506.0400, L503.0106, L3300.0700, L300.3900, L500.4050, L803.2200, L3410.9992, L3200.1100, L501.6710, L400.0001, L501.9985, L501.9520, L3100.3425, L500.4100, L3890.6202, L504.2610, L501.5101, L503.6005 ####[facility] [address] [place], [address] HCV QT RNA PCR Not detected Normal . [facility] Comment on above: Performed By: #### L 506.1001, L7000.7000, L506.0400, L503.0106, L3300.0700, L300.3900, L500.4050, L803.2200, L3410.9992, L3200.1100, L501.6710, L400.0001, L501.9985, L501.9520, L3100.3425, L500.4100, L3890.6202, L504.2610, L501.5101, L503.6005 ####[facility] [address] [facility] [place], [address] TEST INFO: Comment Normal . [facility] Comment on above: Result Comment: The quantitative range of this assay is 15 IU/mL to 100million IU/mL. Performed By: #### L 506.1001, L7000.7000, L506.0400, L503.0106, L3300.0700, L300.3900, L500.4050, L803.2200, L3410.9992, L3200.1100, L501.6710, L400.0001, L501.9985, L501.9520, L3100.3425, L500.4100, L3890.6202, L504.2610, L501.5101, L503.6005 ####[facility] [address] [place], [place], [phone] HEATHER + Protein Elect, Serumon 12-09-2024 Albumin [Mass/Vol] 3.3 g/dL Normal 2.9-4.4 [facility] Comment on above: Order Comment: N Performed By: #### L 506.1001, L7000.7000, L506.0400, L503.0106, L3300.0700, L300.3900, L500.4050, L803.2200, L3410.9992, L3200.1100, L501.6710, L400.0001, L501.9985, L501.9520, L3100.3425, L500.4100, L3890.6202, L504.2610, L501.5101, L503.6005 ####[facility] [address] [facility] [address] [place], [place], [phone] Albumin/Globulin [Mass ratio] 1.1 {ratio} Normal 0.7-1.[address] [facility] Comment on above: Order Comment: N Performed By: #### L 506.1001, L7000.7000, L506.0400, L503.0106, L3300.0700, L300.3900, L500.4050, L803.2200, L3410.9992, L3200.1100, L501.6710, L400.0001, L501.9985, L501.9520, L3100.3425, L500.4100, L3890.6202, L504.2610, L501.5101, L503.6005 ####[facility] [address] [place], [place], [id number] EIVEI-1-EJHZ 0.3 g/dL Normal 0.0-0.[address] [facility] Comment on above: Order Comment: N Performed By: #### L 506.1001, L7000.7000, L506.0400, L503.0106, L3300.0700, L300.3900, L500.4050, L803.2200, L3410.9992, L3200.1100, L501.6710, L400.0001, L501.9985, L501.9520, L3100.3425, L500.4100, L3890.6202, L504.2610, L501.5101, L503.6005 ####[facility] [address] [place], [address] WWAHA-9-TMLV 0.8 g/dL Normal 0.4-1.[address] [facility] Comment on above: Order Comment: N Performed By: #### L 506.1001, L7000.7000, L506.0400, L503.0106, L3300.0700, L300.3900, L500.4050, L803.2200, L3410.9992, L3200.1100, L501.6710, L400.0001, L501.9985, L501.9520, L3100.3425, L500.4100, L3890.6202, L504.2610, L501.5101, L503.6005 ####[facility] [address] [place], [place], [address] BETA GLOBULIN 1.0 g/dL Normal 0.7-1.[address] [facility] Comment on above: Order Comment: N Performed By: #### L 506.1001, L7000.7000, L506.0400, L503.0106, L3300.0700, L300.3900, L500.4050, L803.2200, L3410.9992, L3200.1100, L501.6710, L400.0001, L501.9985, L501.9520, L3100.3425, L500.4100, L3890.6202, L504.2610, L501.5101, L503.6005 ####[facility] [address] [place], [place], [phone](835) GAMMA GLOBULIN 1.1 g/dL Normal 0.4-1.[address] [facility] Comment on above: Order Comment: N Performed By: #### L 506.1001, L7000.7000, L506.0400, L503.0106, L3300.0700, L300.3900, L500.4050, L803.2200, L3410.9992, L3200.1100, L501.6710, L400.0001, L501.9985, L501.9520, L3100.3425, L500.4100, L3890.6202, L504.2610, L501.5101, L503.6005 ####[facility] [address] [place], [place], [phone]) Globulin (S) [Mass/Vol] 3.1 g/dL Normal 2.2-3.9 [facility] Comment on above: Order Comment: N Performed By: #### L 506.1001, L7000.7000, L506.0400, L503.0106, L3300.0700, L300.3900, L500.4050, L803.2200, L3410.9992, L3200.1100, L501.6710, L400.0001, L501.9985, L501.9520, L3100.3425, L500.4100, L3890.6202, L504.2610, L501.5101, L503.6005 ####[facility] [address] [place], [place], [phone](829) HEATHER RESULT,S Comment Normal . [facility] Comment on above: Order Comment: N Result Comment: No m onoclonality detected. Performed By: #### L 506.1001, L7000.7000, L506.0400, L503.0106, L3300.0700, L300.3900, L500.4050, L803.2200, L3410.9992, L3200.1100, L501.6710, L400.0001, L501.9985, L501.9520, L3100.3425, L500.4100, L3890.6202, L504.2610, L501.5101, L503.6005 ####[facility] [address] [place], [place], [address] IMMUNOGLOB A QN 245 mg/dL Normal 87-[address] [facility] Comment on above: Order Comment: N Performed By: #### L 506.1001, L7000.7000, L506.0400, L503.0106, L3300.0700, L300.3900, L500.4050, L803.2200, L3410.9992, L3200.1100, L501.6710, L400.0001, L501.9985, L501.9520, L3100.3425, L500.4100, L3890.6202, L504.2610, L501.5101, L503.6005 ####[facility] [address] [place], [place], [address] IMMUNOGLOB G QN 1208 mg/dL Normal 586-[address] [facility] Comment on above: Order Comment: N Performed By: #### L 506.1001, L7000.7000, L506.0400, L503.0106, L3300.0700, L300.3900, L500.4050, L803.2200, L3410.9992, L3200.1100, L501.6710, L400.0001, L501.9985, L501.9520, L3100.3425, L500.4100, L3890.6202, L504.2610, L501.5101, L503.6005 ####[facility] [address] [place], [place], [address] IMMUNOGLOB M QN 66 mg/dL Normal 26-[address] [facility] Comment on above: Order Comment: N Performed By: #### L 506.1001, L7000.7000, L506.0400, L503.0106, L3300.0700, L300.3900, L500.4050, L803.2200, L3410.9992, L3200.1100, L501.6710, L400.0001, L501.9985, L501.9520, L3100.3425, L500.4100, L3890.6202, L504.2610, L501.5101, L503.6005 ####[facility] [address] [place], [place], [phone] M-Don Not Observed Normal Not Observed [facility] Comment on above: Order Comment: N Performed By: #### L 506.1001, L7000.7000, L506.0400, L503.0106, L3300.0700, L300.3900, L500.4050, L803.2200, L3410.9992, L3200.1100, L501.6710, L400.0001, L501.9985, L501.9520, L3100.3425, L500.4100, L3890.6202, L504.2610, L501.5101, L503.6005 ####[facility] [address] [place], [place], [id number] NOTE: Comment Normal . [facility] Comment on above: Order Comment: N Result Comment: Prot ein electrophoresis scan will follow via computer,mail, or basket hand weaver delivery. Performed By: #### L 506.1001, L7000.7000, L506.0400, L503.0106, L3300.0700, L300.3900, L500.4050, L803.2200, L3410.9992, L3200.1100, L501.6710, L400.0001, L501.9985, L501.9520, L3100.3425, L500.4100, L3890.6202, L504.2610, L501.5101, L503.6005 ####[facility] [address] [place], [place], [address](513) Protein [Mass/Vol] 6.4 g/dL Normal 6.0-8.5 [facility] Comment on above: Order Comment: N Performed By: #### L 506.1001, L7000.7000, L506.0400, L503.0106, L3300.0700, L300.3900, L500.4050, L803.2200, L3410.9992, L3200.1100, L501.6710, L400.0001, L501.9985, L501.9520, L3100.3425, L500.4100, L3890.6202, L504.2610, L501.5101, L503.6005 ####[facility] [address] [place], [address] Immunoglobulins G/A/M/Yong IMMUNOGLOB E QN 21 IU/mL Normal 6-[address] [facility] Comment on above: Order Comment: N Performed By: #### L 506.1001, L7000.7000, L506.0400, L503.0106, L3300.0700, L300.3900, L500.4050, L803.2200, L3410.9992, L3200.1100, L501.6710, L400.0001, L501.9985, L501.9520, L3100.3425, L500.4100, L3890.6202, L504.2610, L501.5101, L503.6005 ####[facility] [address] [place], [place], [address](741) L501.5101on 12-09-2024 GGTP 26 IU/L Normal 0-[address] [facility] Comment on above: Result Comment: Perf ormed at: [id number] [place], [place] [id number] Director: Kevin Prasad PhD, Phone: [phone] at: [address] [id number] Director: Last Thomson MD, Phone: [phone] Performed By: #### L 506.1001, L7000.7000, L506.0400, L503.0106, L3300.0700, L300.3900, L500.4050, L803.2200, L3410.9992, L3200.1100, L501.6710, L400.0001, L501.9985, L501.9520, L3100.3425, L500.4100, L3890.6202, L504.2610, L501.5101, L503.6005 ####[facility] [address] [place], [address] Myoglobin, Urineon 5 MYOGLOBIN,URINE 18 ng/mL High 0-[address] [facility] Comment on above: Order Comment: Test( s) 618187-Fzqeoypgs, Urinewas developed and its performance characteristicsdetermined by [facility]. It has not been cleared or approvedby the Food and Drug Administration. Result Comment: Perf ormed at: [address] [id number] Director: Last Thomson MD, Phone: [phone] Performed By: #### L 3600.5000, L501.0900, L501.7400, L505.5000, L502.0500 ####[facility] [address] [place], [address] ABD Limited w/ Elastographyo n 12-04-2024 ABD Limited w/ Elastography Normal [facility] Absolute lymphocyte countOrd ered By: Alexx Castillo on 12-04-2024 Lymphocytes Auto (Unsp spec) [#/Vol] 1.09 10*3/uL 0.83-4.[address] [facility] Albumin Elph [Mass/Vol]Order ed By: Alexx Castillo on 12-04-2024 Albumin [Mass/Vol] 3.3 g/dL 2.9-4.4 [facility] Amphetamine detection with 1 000 ng/mL as cutoffOrdered By: Alexx Castillo on 12-04-2024 Amphetamines Screen method >1000 ng/mL Ql (U) Negative < 200 ng/mL [facility] Anion gap in Serum or Plasma Ordered By: Alexx Castillo on 12-04-2024 Anion gap [Moles/Vol] 14 mmol/L 5-15 [facility] Automated lymphocyte count a s percentage of total leukocytesOrdered By: Alexx Castillo on 12-04-2024 Lymphocytes/100 WBC Auto (Unsp spec) 17.8 % Low 19-[address] [facility] BUN/creatinine ratioOrdered By: Alexx Castillo on 12-04-2024 Urea nitrogen/Creatinine [Mass ratio] 26.5 mg/mg High 10-[address] [facility] Basophil percentageOrdered B y: Alexx Castillo on 12-04-2024 Basophils/100 WBC (Bld) 1.1 % High 0-1 [facility] Bilirubin, totalOrdered By: Alexx Castillo on 12-04-2024 Bilirubin [Mass/Vol] 0.76 mg/dL 0.00-1.30 [facility] Biopsy/Inj or Needle Placeme nton 12-04-2024 Biopsy/Inj or Needle Placement Normal [facility] CBC W/Diff, Automatedon Absolute Lymph 1.09 X10 3/uL Normal 0.83-4.[address] [facility] Comment on above: Performed By: #### L 100.0100 ####[facility] [address] [place], [address] Absolute Neut 4.0 X10 3/uL Normal 2.0-7.[address] [facility] Comment on above: Performed By: #### L 100.0100 ####[facility] [id number] [place], [address] Basophils/100 WBC (Bld) 1.1 % High 0-1 [facility] Comment on above: Performed By: #### L 100.0100 ####[facility] [address] [place], [address] Eosinophils/100 WBC (Bld) 6.4 % High 0-[address] [facility] Comment on above: Performed By: #### L 100.0100 ####[facility] [address] [place], [address] Erythrocyte distribution width (RBC) [Ratio] 14.5 % Normal 11.6-14.[address] [facility] Comment on above: Performed By: #### L 100.0100 ####[facility] [address] [place], [address] Hematocrit (Bld) [Volume fraction] 44.9 % Normal 37-[address] [facility] Comment on above: Performed By: #### L 100.0100 ####[facility] [address] [place], [address] Hemoglobin (Bld) [Mass/Vol] 15.0 g/dL Normal 12.0-15.[address] [facility] Comment on above: Performed By: #### L 100.0100 ####[facility] [address] [place], [address] IG% 0.300 Normal 0.0-0.[address] [facility] Comment on above: Result Comment: IG% - Immature Granulocytes (promyelocytes, myelocytes andmetamyelocytes) > 1% indicates that a LEFT SHIFT is Present. Performed By: #### L 100.0100 ####[facility] [address] [place], [address] Lymphocytes/100 WBC (Bld) 17.8 % Low 19-[address] [facility] Comment on above: Performed By: #### L 100.0100 ####[facility] [address] [place], [address] MCH (RBC) [Entitic mass] 30.9 pg Normal 27.0-32.[address] [facility] Comment on above: Performed By: #### L 100.0100 ####[facility] [address] [place], [address] MCHC (RBC) [Mass/Vol] 33.4 g/dL Normal 32-36 [facility] [place] Comment on above: Performed By: #### L 100.0100 ####[facility] [address] [place], [address] MCV (RBC) [Entitic vol] 92.4 fL Normal 81-99 [facility] Comment on above: Performed By: #### L 100.0100 ####[facility] [address] [place], [address] Monocytes/100 WBC (Bld) 9.7 % Normal 0-10 [facility] Comment on above: Performed By: #### L 100.0100 ####[facility] [address] [place], [address] Neutrophils/100 WBC (Bld) 64.7 % Normal 47-[address] [facility] Comment on above: Performed By: #### L 100.0100 ####[facility] [address] [place], [address] Nucleated RBC (Bld) [#/Vol] 0 10*3/uL Normal 0-[address] [facility] Comment on above: Performed By: #### L 100.0100 ####[facility] [address] [place], [address] Platelet mean volume (Bld) [Entitic vol] 11.2 fL Normal 6.2-12.[address] [facility] Comment on above: Performed By: #### L 100.0100 ####[facility] [address] [place], [address] Platelets (Bld) [#/Vol] 280 10*3/uL Normal 150-[address] [facility] Comment on above: Performed By: #### L 100.0100 ####[facility] [address] [place], [address] RBC (Bld) [#/Vol] 4.86 10*6/uL Normal 4.2-5.4 [facility] Comment on above: Performed By: #### L 100.0100 ####[facility] [address] [place], [address] RDW SD 49.2 fl High 35.1-43.[address] [facility] Comment on above: Performed By: #### L 100.0100 ####[facility] [address] [place], [address] WBC (Bld) [#/Vol] 6.1 10*3/uL Normal 4.4-11.0 [facility] Comment on above: Performed By: #### L 100.0100 ####[facility] [address] [place], [address] CRPon 12-04-2024 C-REACTIVE PROT 3.74 mg/L High 0.0-3.[address] [facility] Comment on above: Performed By: #### L 506.1001, L7000.7000, L506.0400, L503.0106, L3300.0700, L300.3900, L500.4050, L803.2200, L3410.9992, L3200.1100, L501.6710, L400.0001, L501.9985, L501.9520, L3100.3425, L500.4100, L3890.6202, L504.2610, L501.5101, L503.6005 ####[facility] [address] [place], [address] Calculated very low density lipoprotein (VLDL) cholesterol measurementOrdered By: Alexx Castillo on 12-04-2024 Calculated very low density lipoprotein (VLDL) cholesterol measurement 26 mg/dL 5-[address] [facility] Carbon dioxide, total [Moles /volume] in Central venous bloodOrdered By: Alexx Castillo on 12-04-2024 CO2 [Moles/Vol] 20.7 mmol/L Low 21.0-32.[address] [facility] Chloride assayOrdered By: Luke Castillo on 12-04-2024 Chloride [Moles/Vol] 101 mmol/L 98-108 [facility] Comprehensive Metabolic Prof ilon 12-04-2024 Albumin [Mass/Vol] 3.7 g/dL Normal 3.5-5.0 [facility] Comment on above: Result Comment: AMENDED REPORT 12/04/24923 ALB previously reported as: 3.6 g/dL Performed By: #### L 506.1001, L7000.7000, L506.0400, L503.0106, L3300.0700, L300.3900, L500.4050, L803.2200, L3410.9992, L3200.1100, L501.6710, L400.0001, L501.9985, L501.9520, L3100.3425, L500.4100, L3890.6202, L504.2610, L501.5101, L503.6005 ####[facility] [address] [place], [place], [phone] Albumin/Globulin [Mass ratio] 1.3 {ratio} Normal 0.9-2.[address] [facility] Comment on above: Performed By: #### L 506.1001, L7000.7000, L506.0400, L503.0106, L3300.0700, L300.3900, L500.4050, L803.2200, L3410.9992, L3200.1100, L501.6710, L400.0001, L501.9985, L501.9520, L3100.3425, L500.4100, L3890.6202, L504.2610, L501.5101, L503.6005 ####[facility] [address] [place], [place], [phone] ALK PHOS 50 U/L Normal 35-[address] [facility] Comment on above: Result Comment: AMENDED REPORT 12/04/24923 ALK P previously reported as: 51 U/L Performed By: #### L 506.1001, L7000.7000, L506.0400, L503.0106, L3300.0700, L300.3900, L500.4050, L803.2200, L3410.9992, L3200.1100, L501.6710, L400.0001, L501.9985, L501.9520, L3100.3425, L500.4100, L3890.6202, L504.2610, L501.5101, L503.6005 ####[facility] [address] [place], [place], [phone] ALT [Catalytic activity/Vol] 248 U/L High <=[address] [facility] Comment on above: Result Comment: AMENDED REPORT 12/04/24923 ALT previously reported as: 261 H U/L Performed By: #### L 506.1001, L7000.7000, L506.0400, L503.0106, L3300.0700, L300.3900, L500.4050, L803.2200, L3410.9992, L3200.1100, L501.6710, L400.0001, L501.9985, L501.9520, L3100.3425, L500.4100, L3890.6202, L504.2610, L501.5101, L503.6005 ####[facility] [address] [place], [place], [phone] AST [Catalytic activity/Vol] 313 U/L High <=[address] [facility] Comment on above: Result Comment: AMENDED REPORT 12/04/24923 AST previously reported as: 309 H U/L Performed By: #### L 506.1001, L7000.7000, L506.0400, L503.0106, L3300.0700, L300.3900, L500.4050, L803.2200, L3410.9992, L3200.1100, L501.6710, L400.0001, L501.9985, L501.9520, L3100.3425, L500.4100, L3890.6202, L504.2610, L501.5101, L503.6005 ####[facility] [address] [facility] [place], [address] Bilirubin [Mass/Vol] 0.76 mg/dL Normal 0.00-1.30 [facility] Comment on above: Result Comment: AMENDED REPORT 12/04/24923 T BILI previously reported as: 0.72 mg/dL Performed By: #### L 506.1001, L7000.7000, L506.0400, L503.0106, L3300.0700, L300.3900, L500.4050, L803.2200, L3410.9992, L3200.1100, L501.6710, L400.0001, L501.9985, L501.9520, L3100.3425, L500.4100, L3890.6202, L504.2610, L501.5101, L503.6005 ####[facility] [address] [facility] [place], [place], [phone] BUN/CRE 26.5 RATIO High 10-[address] [facility] Comment on above: Result Comment: AMENDED REPORT 12/04/24923 BUN/CRE previously reported as: 27.2 H RATIO Performed By: #### L 506.1001, L7000.7000, L506.0400, L503.0106, L3300.0700, L300.3900, L500.4050, L803.2200, L3410.9992, L3200.1100, L501.6710, L400.0001, L501.9985, L501.9520, L3100.3425, L500.4100, L3890.6202, L504.2610, L501.5101, L503.6005 ####[facility] [address] [place], [place], [phone] Calcium [Mass/Vol] 9.8 mg/dL Normal 7.6-11.0 [facility] Comment on above: Result Comment: AMENDED REPORT 12/04/24923 CA previously reported as: 9.9 mg/dL Performed By: #### L 506.1001, L7000.7000, L506.0400, L503.0106, L3300.0700, L300.3900, L500.4050, L803.2200, L3410.9992, L3200.1100, L501.6710, L400.0001, L501.9985, L501.9520, L3100.3425, L500.4100, L3890.6202, L504.2610, L501.5101, L503.6005 ####[facility] [address] [facility] [place], [place], [phone] Chloride [Moles/Vol] 101 mmol/L Normal 98-108 [facility] Comment on above: Result Comment: AMENDED REPORT 12/04/24923 CL previously reported as: 102 mmol/L Performed By: #### L 506.1001, L7000.7000, L506.0400, L503.0106, L3300.0700, L300.3900, L500.4050, L803.2200, L3410.9992, L3200.1100, L501.6710, L400.0001, L501.9985, L501.9520, L3100.3425, L500.4100, L3890.6202, L504.2610, L501.5101, L503.6005 ####[facility] [address] [place], [place], [phone](304) CO2 [Moles/Vol] 20.7 mmol/L Low 21.0-32.[address] [facility] Comment on above: Result Comment: AMENDED REPORT 12/04/24923 CO2 previously reported as: 22.2 mmol/L Performed By: #### L 506.1001, L7000.7000, L506.0400, L503.0106, L3300.0700, L300.3900, L500.4050, L803.2200, L3410.9992, L3200.1100, L501.6710, L400.0001, L501.9985, L501.9520, L3100.3425, L500.4100, L3890.6202, L504.2610, L501.5101, L503.6005 ####[facility] [address] [facility] [address] [place], [place], [phone](113) Creatinine [Mass/Vol] 0.39 mg/dL Low 0.70-1.20 [facility] Comment on above: Result Comment: AMENDED REPORT 12/04/24923 CREAT,SERUM previously reported as: 0.38 L mg/dL Performed By: #### L 506.1001, L7000.7000, L506.0400, L503.0106, L3300.0700, L300.3900, L500.4050, L803.2200, L3410.9992, L3200.1100, L501.6710, L400.0001, L501.9985, L501.9520, L3100.3425, L500.4100, L3890.6202, L504.2610, L501.5101, L503.6005 ####[facility] [address] [place], [place], [phone](086) ECRCL 186.23 ml/min Normal 50-[address] [facility] Comment on above: Result Comment: AMENDED REPORT 12/04/24923 Estimated CRCL previously reported as: 191.13 ml/min Performed By: #### L 506.1001, L7000.7000, L506.0400, L503.0106, L3300.0700, L300.3900, L500.4050, L803.2200, L3410.9992, L3200.1100, L501.6710, L400.0001, L501.9985, L501.9520, L3100.3425, L500.4100, L3890.6202, L504.2610, L501.5101, L503.6005 ####[facility] [address] [place], [place], [phone] GAP 14 Normal 5-[address] [facility] Comment on above: Result Comment: AMENDED REPORT 12/04/24923 GAP previously reported as: 13 Performed By: #### L 506.1001, L7000.7000, L506.0400, L503.0106, L3300.0700, L300.3900, L500.4050, L803.2200, L3410.9992, L3200.1100, L501.6710, L400.0001, L501.9985, L501.9520, L3100.3425, L500.4100, L3890.6202, L504.2610, L501.5101, L503.6005 ####[facility] [address] [place], [place], [phone] Globulin (S) [Mass/Vol] 2.9 g/dL Normal 2.2-4.2 [facility] Comment on above: Result Comment: AMENDED REPORT 12/04/24923 GLOB previously reported as: 3.1 g/dL Performed By: #### L 506.1001, L7000.7000, L506.0400, L503.0106, L3300.0700, L300.3900, L500.4050, L803.2200, L3410.9992, L3200.1100, L501.6710, L400.0001, L501.9985, L501.9520, L3100.3425, L500.4100, L3890.6202, L504.2610, L501.5101, L503.6005 ####[facility] [address] [place], [place], [phone] Glucose [Mass/Vol] 106 mg/dL High 70-99 [facility] Comment on above: Result Comment: AMENDED REPORT 12/04/24923 GLU previously reported as: 108 H mg/dL Performed By: #### L 506.1001, L7000.7000, L506.0400, L503.0106, L3300.0700, L300.3900, L500.4050, L803.2200, L3410.9992, L3200.1100, L501.6710, L400.0001, L501.9985, L501.9520, L3100.3425, L500.4100, L3890.6202, L504.2610, L501.5101, L503.6005 ####[facility] [address] [place], [place], [address] Potassium [Moles/Vol] 4.4 mmol/L Normal 3.3-5.1 [facility] Comment on above: Result Comment: AMENDED REPORT 12/04/24923 K previously reported as: 4.5 mmol/L Performed By: #### L 506.1001, L7000.7000, L506.0400, L503.0106, L3300.0700, L300.3900, L500.4050, L803.2200, L3410.9992, L3200.1100, L501.6710, L400.0001, L501.9985, L501.9520, L3100.3425, L500.4100, L3890.6202, L504.2610, L501.5101, L503.6005 ####[facility] [address] [facility] [place], [place], [phone] Sodium [Moles/Vol] 136 mmol/L Normal 133-145 [facility] Comment on above: Performed By: #### L 506.1001, L7000.7000, L506.0400, L503.0106, L3300.0700, L300.3900, L500.4050, L803.2200, L3410.9992, L3200.1100, L501.6710, L400.0001, L501.9985, L501.9520, L3100.3425, L500.4100, L3890.6202, L504.2610, L501.5101, L503.6005 ####[facility] [address] [place], [place], [phone] T PROT 6.6 g/dL Normal 5.9-8.[address] [facility] Comment on above: Performed By: #### L 506.1001, L7000.7000, L506.0400, L503.0106, L3300.0700, L300.3900, L500.4050, L803.2200, L3410.9992, L3200.1100, L501.6710, L400.0001, L501.9985, L501.9520, L3100.3425, L500.4100, L3890.6202, L504.2610, L501.5101, L503.6005 ####[facility] [address] [place], [place], [phone] Urea nitrogen [Mass/Vol] 10 mg/dL Normal 4-[address] [facility] Comment on above: Performed By: #### L 506.1001, L7000.7000, L506.0400, L503.0106, L3300.0700, L300.3900, L500.4050, L803.2200, L3410.9992, L3200.1100, L501.6710, L400.0001, L501.9985, L501.9520, L3100.3425, L500.4100, L3890.6202, L504.2610, L501.5101, L503.6005 ####[facility] [address] [place], [address] Eosinophil percentageOrdered By: Alexx Castillo on 12-04-2024 Eosinophils/100 WBC (Bld) 6.4 % High 0-[address] [facility] Erythrocyte distribution wid th ratioOrdered By: Alexx Castillo on 12-04-2024 Erythrocyte distribution width (RBC) [Ratio] 14.5 % 11.6-14.[address] [facility] Erythrocyte distribution wid th standard deviationOrdered By: Alexx Castillo on 12-04-2024 Erythrocyte distribution width (RBC) [Ratio] 49.2 fl High 35.1-43.[address] [facility] Gamma glutamyl transferase ( GGT) measurementOrdered By: Alexx Castillo on 12-04-2024 Amylase [Catalytic activity/Vol] 26 U/L 0-[address] [facility] Glomerular filtration rate ( GFR) estimation/1.73 sq m using serum, plasma, or whole bOrdered By: Alexx Castillo on 12-04-2024 GFR/1.73 sq M.predicted among non-blacks MDRD (S/P/Bld) [Vol rate/Area] 118 mL/min/{1.73_m2} >[address] [facility] Hematocrit Auto (Bld) [Volum e fraction]Ordered By: Alexx Castillo on 12-04-2024 Hematocrit (Bld) [Volume fraction] 44.9 % 37-[address] [facility] Hemoglobin A1con 12-04-2024 HbA1c (Bld) [Mass fraction] 5.6 % Normal <=5.[address] [facility] Comment on above: Result Comment: Norm al < 5.7 % Prediabetic 5.7 - 6.4 % Diabetic >or= 6.5 % Please note range changes. Performed By: #### L 506.1001, L7000.7000, L506.0400, L503.0106, L3300.0700, L300.3900, L500.4050, L803.2200, L3410.9992, L3200.1100, L501.6710, L400.0001, L501.9985, L501.9520, L3100.3425, L500.4100, L3890.6202, L504.2610, L501.5101, L503.6005 ####[facility] [address] [place], [place], [phone] Hemoglobin A1c percentageOrd ered By: Alexx Castillo on 12-04-2024 HbA1c (Bld) [Mass fraction] 5.6 % <5.[address] [facility] Hemoglobin measurementOrdere d By: Alexx Castillo on 12-04-2024 Hemoglobin (Bld) [Mass/Vol] 15.0 g/dL 12.0-15.[address] [facility] Hepatitis B Surface Antibody on 12-04-2024 HEP B Surf Ab Non-Reactive Normal [facility] Comment on above: Result Comment: <8.5 mIU/mL: Non-Reactive8.5<= x <11.5 mIU/mL: Indeterminate>=11.5 mIU/mL: Reactive Non Reactive: Inconsistent with immunity less than <10 mIU/mL Reactive: Consistent with immunity greater than or equal to 10 mIU/mL Performed By: #### L 506.1001, L7000.7000, L506.0400, L503.0106, L3300.0700, L300.3900, L500.4050, L803.2200, L3410.9992, L3200.1100, L501.6710, L400.0001, L501.9985, L501.9520, L3100.3425, L500.4100, L3890.6202, L504.2610, L501.5101, L503.6005 ####[facility] [address] [place], [place], [phone] IgEOrdered By: Alexx Castillo on 12-04-2024 IgE 21 IU/mL 6-[address] [facility] Immature granulocytes/100 WB C Auto (Bld)Ordered By: Alexx Castillo on 12-04-2024 Immature granulocytes/100 WBC (Bld) 0.300 % 0.0-0.[address] [facility] Interpretation of serum or p lasma protein pattern by immunofixation (narrative resultOrdered By: Alexx Castillo on 12-04-2024 Protein Fractions Immunofixation Michael [Interp] Not Observed g/dL Not Observed [facility] L305.1805on 12-04-2024 Path [facility] Liver SEE PATHOLOGY REPORT Normal [facility] Comment on above: Order Comment: RESUL TS FAXED TO DR CASTILLO 12/11/24 1053 [address]. Result Comment: Spec imen sent to [facility] Pathology Department.Report available in EMR. Performed By: #### L 305.1805 ####[facility] [address] [place], [place], [id number] LDHon 12-04-2024 LDH 857 U/L High 84-[address] [facility] Comment on above: Order Comment: 1 Performed By: #### L 506.1001, L7000.7000, L506.0400, L503.0106, L3300.0700, L300.3900, L500.4050, L803.2200, L3410.9992, L3200.1100, L501.6710, L400.0001, L501.9985, L501.9520, L3100.3425, L500.4100, L3890.6202, L504.2610, L501.5101, L503.6005 ####[facility] [address] [place], [place], [phone] LDL calc ser/plasOrdered By: Alexx Castillo on 12-04-2024 Cholesterol in LDL [Mass/Vol] 114 mg/dL [facility] Lactic Acidon 12-04-2024 Lactate [Moles/Vol] 1.9 mmol/L Normal 0.0-2.0 [facility] Comment on above: Order Comment: N Performed By: #### L 506.1001, L7000.7000, L506.0400, L503.0106, L3300.0700, L300.3900, L500.4050, L803.2200, L3410.9992, L3200.1100, L501.6710, L400.0001, L501.9985, L501.9520, L3100.3425, L500.4100, L3890.6202, L504.2610, L501.5101, L503.6005 ####[facility] [address] [place], [place], [phone] Lipid Profileon 12-04-2024 CHOL:HDL 4.[address] [facility] Comment on above: Performed By: #### L 506.1001, L7000.7000, L506.0400, L503.0106, L3300.0700, L300.3900, L500.4050, L803.2200, L3410.9992, L3200.1100, L501.6710, L400.0001, L501.9985, L501.9520, L3100.3425, L500.4100, L3890.6202, L504.2610, L501.5101, L503.6005 ####[facility] [address] [facility] [place], [place], [phone] Cholesterol [Mass/Vol] 182 mg/dL Normal <=200 [facility] Comment on above: Result Comment: Chol esterol level, Desirable <200 mg/dLBorderline high cholesterol 200-239 mg/dLHigh cholesterol >=240 mg/dLRecommendations of the NCEP Adult Treatment Panel for thefollowing risk-cutoff thresholds for the [place] Americanpopulation. Performed By: #### L 506.1001, L7000.7000, L506.0400, L503.0106, L3300.0700, L300.3900, L500.4050, L803.2200, L3410.9992, L3200.1100, L501.6710, L400.0001, L501.9985, L501.9520, L3100.3425, L500.4100, L3890.6202, L504.2610, L501.5101, L503.6005 ####[facility] [address] [place], [place], [phone](848) Cholesterol in HDL [Mass/Vol] 42 mg/dL Normal [facility] Comment on above: Result Comment: Essence onal Cholesterol Education Program (NCEP) guidelines:<40 mg/dL: Low HDL-cholesterol (major risk factor for CHD)>= 60 mg/dL: High HDL-cholesterol (negative risk factor forCHD)HDL-cholesterol is affected by a number of factors, e.g.smoking, exercise, hormones, sex and age. Performed By: #### L 506.1001, L7000.7000, L506.0400, L503.0106, L3300.0700, L300.3900, L500.4050, L803.2200, L3410.9992, L3200.1100, L501.6710, L400.0001, L501.9985, L501.9520, L3100.3425, L500.4100, L3890.6202, L504.2610, L501.5101, L503.6005 ####[facility] [address] [place], [address](081) Cholesterol in LDL [Mass/Vol] 114 mg/dL Normal [facility] Comment on above: Result Comment: Bord wkjrni=969-354 mg/dL Higher Ruvc=361 mg/dL or greaterFriedwald Equation for LDL-C Performed By: #### L 506.1001, L7000.7000, L506.0400, L503.0106, L3300.0700, L300.3900, L500.4050, L803.2200, L3410.9992, L3200.1100, L501.6710, L400.0001, L501.9985, L501.9520, L3100.3425, L500.4100, L3890.6202, L504.2610, L501.5101, L503.6005 ####[facility] [address] [place], [address](844) Cholesterol in VLDL [Mass/Vol] 26 mg/dL Normal 5-[address] [facility] Comment on above: Performed By: #### L 506.1001, L7000.7000, L506.0400, L503.0106, L3300.0700, L300.3900, L500.4050, L803.2200, L3410.9992, L3200.1100, L501.6710, L400.0001, L501.9985, L501.9520, L3100.3425, L500.4100, L3890.6202, L504.2610, L501.5101, L503.6005 ####[facility] [address] [place], [address] Triglyceride [Mass/Vol] 132 mg/dL Normal [facility] Comment on above: Result Comment: The drugs N-Acetylcysteine and Metamizole may falselydepress this assay.Normal range: <150 mg/dLBorderline High: 150-199 mg/dLHigh: 200-499 mg/dLVery High: >500 mg/dL Performed By: #### L 506.1001, L7000.7000, L506.0400, L503.0106, L3300.0700, L300.3900, L500.4050, L803.2200, L3410.9992, L3200.1100, L501.6710, L400.0001, L501.9985, L501.9520, L3100.3425, L500.4100, L3890.6202, L504.2610, L501.5101, L503.6005 ####[facility] [id number] [place], [address] MCV (mean corpuscular volume ) determinationOrdered By: Alexx Castillo on 12-04-2024 MCV (RBC) [Entitic vol] 92.4 fL 81-99 [facility] Mean corpuscular hemoglobin (MCH) determinationOrdered By: Alexx Castillo on 12-04-2024 MCH (RBC) [Entitic mass] 30.9 pg 27.0-32.[address] [facility] Microalbumin,Random Urineon 12-04-2024 MICROALBUMIN,UR < 12.0 Normal <20 mg/L [facility] Comment on above: Performed By: #### L 3600.5000, L501.0900, L501.7400, L505.5000, L502.0500 ####[facility] [id number] [place], [place], [id number] Monocyte percentageOrdered B y: Alexx Castillo on 12-04-2024 Monocytes/100 WBC (Bld) 9.7 % 0-10 [facility] Neutrophil percentageOrdered By: Alexx Castillo on 12-04-2024 Neutrophils/100 WBC (Bld) 64.7 % 47-[address] [facility] No Panel InformationOrdered By: Alexx Castillo on 12-04-2024 Negative < 200 ng/mL [facility] Addendum Document Comment . [facility] 313 U/L High <[address] [facility] Osmolality urOrdered By: Pamela Castillo on 12-04-2024 Osmolality (U) [Osmolality] 512 mOsm/KG >[address] [facility] Osmolality, Urineon 12-05-19 25 OSMOLALITY,UR 512 mOsm/KG Normal [facility] Comment on above: Result Comment: Norm al Urine Reference Ranges Random: 50 - 1200 mOsm/kg H20 depending on fluid intake Random: >850 mOsm/kg after 12 hour fluid restriction 24 hour: 300 - 900 mOsm/kg H2O Performed By: #### L 3600.5000, L501.0900, L501.7400, L505.5000, L502.0500 ####[facility] [id number] [place], [place], [id number] Platelet countOrdered By: Luke Castillo on 12-04-2024 Platelets (Bld) [#/Vol] 280 10*3/uL 150-[address] [facility] Potassium measurement (mass/ volume)Ordered By: Alexx Castillo on 12-04-2024 Potassium (Unsp spec) [Mass/Vol] 4.4 mmol/L 3.3-5.[address] [facility] Protein+Creatinine Ratio,Uri neon 12-04-2024 PROT:CRE RATIO 480 mg/g CRE High 0-[address] [facility] Comment on above: Performed By: #### L 3600.5000, L501.0900, L501.7400, L505.5000, L502.0500 ####[facility] [id number] [place], [address] Protein (U) [Mass/Vol] 27.8 mg/dL High 0.0-12.0 [facility] System Comment on above: Performed By: #### L 3600.5000, L501.0900, L501.7400, L505.5000, L502.0500 ####[facility] [address] [place], [address] UR CREAT 57.90 mg/dL Normal 28.00-217. [address] [facility] Comment on above: Performed By: #### L 3600.5000, L501.0900, L501.7400, L505.5000, L502.0500 ####[facility] [address] [place], [address] Prothrombin Time w/INRon INR Coag (PPP) [Relative time] 1.1 {INR} Normal [facility] Comment on above: Performed By: #### L 506.1001, L7000.7000, L506.0400, L503.0106, L3300.0700, L300.3900, L500.4050, L803.2200, L3410.9992, L3200.1100, L501.6710, L400.0001, L501.9985, L501.9520, L3100.3425, L500.4100, L3890.6202, L504.2610, L501.5101, L503.6005 ####[facility] [address] [place], [address] PT Coag (PPP) [Time] 14.1 s Normal 11.7-14.9 [facility] Comment on above: Performed By: #### L 506.1001, L7000.7000, L506.0400, L503.0106, L3300.0700, L300.3900, L500.4050, L803.2200, L3410.9992, L3200.1100, L501.6710, L400.0001, L501.9985, L501.9520, L3100.3425, L500.4100, L3890.6202, L504.2610, L501.5101, L503.6005 ####[facility] [address] [place], [place], [phone] Prothrombin timeOrdered By: Alexx Castillo on 12-04-2024 PT Coag (PPP) [Time] 14.1 s 11.7-14.9 [facility] RBC Auto (Bld) [#/Vol]Ordere d By: Alexx Castillo on 12-04-2024 RBC (Bld) [#/Vol] 4.86 10*6/uL 4.2-5.4 [facility] Random urine creatinine anish urement (mass/volume)Ordered By: Alexx Castillo on 12-04-2024 Creatinine Unsp time (U) [Mass/Vol] 57.90 mg/dL 28.00-217. [address] [facility] Screening urine fentanyl alex surementOrdered By: Alexx Castillo on 12-04-2024 fentaNYL Screen Ql (U) Negative <5 ng/mL [facility] Serum creatinine measurement (mass/volume)Ordered By: Alexx Castillo on 12-04-2024 Creatinine [Mass/Vol] 0.39 mg/dL Low 0.70-1.20 [facility] Serum globulin measurement ( mass/volume)Ordered By: Alexx Castillo on 12-04-2024 Globulin (S) [Mass/Vol] 3.1 g/dL 2.2-3.9 [facility] Serum glucose measurement (m ass/volume)Ordered By: Alexx Castillo on 12-04-2024 Glucose [Mass/Vol] 106 mg/dL High 70-99 [facility] Serum hepatitis B virus surf wintson antibody detectionOrdered By: Alexx Castillo on 12-04-2024 HBV surface Ab Ql (S) Non-Reactive W [facility] Serum or plasma C reactive p rotein measurement (mass/volume)Ordered By: Alexx Castillo on 12-04-2024 CRP [Mass/Vol] 3.74 mg/L High 0.0-3.[address] [facility] Serum or plasma IgA measurem ent (mass/volume)Ordered By: Alexx Castillo on 12-04-2024 IgA [Mass/Vol] 245 mg/dL 87-[address] [facility] Serum or plasma IgG measurem ent (mass/volume)Ordered By: Alexx Castillo on 12-04-2024 IgG [Mass/Vol] 1208 mg/dL 586-[address] [facility] Serum or plasma actin IgG an tibody assay (units/volume)Ordered By: Alexx Castillo on 12-04-2024 Actin IgG Qn 15 Units 0-[address] [facility] Serum or plasma alanine reynoso otransferase (ALT) measurementOrdered By: Alexx Castillo on 12-04-2024 ALT [Catalytic activity/Vol] 248 U/L High <[address] [facility] Serum or plasma albumin anish urement (mass/volume)Ordered By: Alexx Castillo on 12-04-2024 Albumin [Mass/Vol] 3.7 g/dL 3.5-5.0 [facility] Serum or plasma albumin/glob ulin mass ratioOrdered By: Alexx Castillo on 12-04-2024 Albumin/Globulin [Mass ratio] 1.3 {ratio} 0.9-2.[address] [facility] Serum or plasma alkaline brian sphatase measurementOrdered By: Alexx Castillo on 12-04-2024 ALP [Catalytic activity/Vol] 50 U/L 35-[address] [facility] Serum or plasma alpha 1 glob ulin measurement by electrophoresis (mass/volume)Ordered By: Alexx Castillo on 12-04-2024 Alpha 1 globulin Elph [Mass/Vol] 0.3 g/dL 0.0-0.[address] [facility] Alpha 1 globulin Elph [Mass/Vol] 0.8 g/dL 0.4-1.[address] [facility] Serum or plasma beta globuli n measurement by electrophoresis (mass/volume)Ordered By: Alexx Castillo on 12-04-2024 Beta globulin Elph [Mass/Vol] 1.0 g/dL 0.7-1.[address] [facility] Serum or plasma calcium anish urement (mass/volume)Ordered By: Alexx Castillo on 12-04-2024 Calcium [Mass/Vol] 9.8 mg/dL 7.6-11.0 [facility] Serum or plasma cholesterol in HDL measurement (mass/volume)Ordered By: Alexx Castillo on 12-04-2024 Cholesterol in HDL [Mass/Vol] 42 mg/dL >[address] [facility] Serum or plasma cholesterol measurement (mass/volume)Ordered By: Alexx Castillo on 12-04-2024 Cholesterol [Mass/Vol] 182 mg/dL <201 [facility] Serum or plasma gamma globul in measurement by electrophoresis (mass/volume)Ordered By: Alexx Castillo on 12-04-2024 Gamma globulin Elph [Mass/Vol] 1.1 g/dL 0.4-1.[address] [facility] Serum or plasma hepatitis C virus RNA measurement by probe and target amplification mOrdered By: Alexx Castillo on 12-04-2024 HCV RNA ALISON+probe Qn Not detected . [facility] Serum or plasma immunoelectr ophoresis interpretation (nominal result)Ordered By: Alexx Castillo on 12-04-2024 Interpretation IEP [Interp] Comment . [facility] Serum or plasma protein anish urement (mass/volume)Ordered By: Alexx Castillo on 12-04-2024 Protein [Mass/Vol] 6.4 g/dL 6.0-8.5 [facility] Serum or plasma urea nitroge n measurement (mass/volume)Ordered By: Alexx Castillo on 12-04-2024 Urea nitrogen [Mass/Vol] 10 mg/dL 4-[address] [facility] Sodium levelOrdered By: Gaby Castillo on 12-04-2024 Sodium [Moles/Vol] 136 mmol/L 133-145 [facility] T4 Free Directon 12-04-2024 T4 FREE DIRECT 1.30 ng/dL Normal 0.76-1.[address] [facility] Comment on above: Performed By: #### L 506.1001, L7000.7000, L506.0400, L503.0106, L3300.0700, L300.3900, L500.4050, L803.2200, L3410.9992, L3200.1100, L501.6710, L400.0001, L501.9985, L501.9520, L3100.3425, L500.4100, L3890.6202, L504.2610, L501.5101, L503.6005 ####[facility] [address] [place], [place], [phone] T4 freeOrdered By: Alexx marques on 12-04-2024 Free T4 [Mass/Vol] 1.30 ng/dL 0.76-1.46 [facility] TSH DL <= 0.005 mIU/L QnOrde red By: Alexx Castillo on 12-04-2024 TSH Qn 6.940 uIU/mL High 0.300-4.[address] [facility] Thyroid Stim Hormone (TSH)on 12-04-2024 TSH 6.940 uIU/mL High 0.300-4.[address] [facility] Comment on above: Performed By: #### L 506.1001, L7000.7000, L506.0400, L503.0106, L3300.0700, L300.3900, L500.4050, L803.2200, L3410.9992, L3200.1100, L501.6710, L400.0001, L501.9985, L501.9520, L3100.3425, L500.4100, L3890.6202, L504.2610, L501.5101, L503.6005 ####[facility] [address] [place], [address] Total proteinOrdered By: Pamela Castillo on 12-04-2024 Protein [Mass/Vol] 6.6 g/dL 5.9-8.4 [facility] Urinalysis, Completeon 12-04 BACTERIA 0 SEEN Normal None Seen [facility] Comment on above: Order Comment: COLLE CTOR TO SPECIFY Result Comment: UTO Performed By: #### L 506.1001, L7000.7000, L506.0400, L503.0106, L3300.0700, L300.3900, L500.4050, L803.2200, L3410.9992, L3200.1100, L501.6710, L400.0001, L501.9985, L501.9520, L3100.3425, L500.4100, L3890.6202, L504.2610, L501.5101, L503.6005 ####[facility] [address] [facility] [place], [place], [phone] BILIRUBIN URINE Normal Negative [facility] Comment on above: Order Comment: GAVIOTA CTOR TO SPECIFY Result Comment: UTO Performed By: #### L 506.1001, L7000.7000, L506.0400, L503.0106, L3300.0700, L300.3900, L500.4050, L803.2200, L3410.9992, L3200.1100, L501.6710, L400.0001, L501.9985, L501.9520, L3100.3425, L500.4100, L3890.6202, L504.2610, L501.5101, L503.6005 ####[facility] [address] [facility] [place], [place], [phone] Clarity (U) Normal Clear [facility] Comment on above: Order Comment: GAVIOTA CTOR TO SPECIFY Result Comment: UTO Performed By: #### L 506.1001, L7000.7000, L506.0400, L503.0106, L3300.0700, L300.3900, L500.4050, L803.2200, L3410.9992, L3200.1100, L501.6710, L400.0001, L501.9985, L501.9520, L3100.3425, L500.4100, L3890.6202, L504.2610, L501.5101, L503.6005 ####[facility] [address] [place], [place], [phone] Color (U) Normal Yellow [facility] Comment on above: Order Comment: COLLE CTOR TO SPECIFY Result Comment: UTO Performed By: #### L 506.1001, L7000.7000, L506.0400, L503.0106, L3300.0700, L300.3900, L500.4050, L803.2200, L3410.9992, L3200.1100, L501.6710, L400.0001, L501.9985, L501.9520, L3100.3425, L500.4100, L3890.6202, L504.2610, L501.5101, L503.6005 ####[facility] [address] [place], [place], [phone]) EPI,SQUAMOUS 0 SEEN Normal 5-[address] [facility] Comment on above: Order Comment: GAVIOTA CTOR TO SPECIFY Result Comment: UTO Performed By: #### L 506.1001, L7000.7000, L506.0400, L503.0106, L3300.0700, L300.3900, L500.4050, L803.2200, L3410.9992, L3200.1100, L501.6710, L400.0001, L501.9985, L501.9520, L3100.3425, L500.4100, L3890.6202, L504.2610, L501.5101, L503.6005 ####[facility] [address] [place], [place], [phone] GLUCOSE, UR Normal Normal [facility] Comment on above: Order Comment: COLLE CTOR TO SPECIFY Result Comment: UTO Performed By: #### L 506.1001, L7000.7000, L506.0400, L503.0106, L3300.0700, L300.3900, L500.4050, L803.2200, L3410.9992, L3200.1100, L501.6710, L400.0001, L501.9985, L501.9520, L3100.3425, L500.4100, L3890.6202, L504.2610, L501.5101, L503.6005 ####[facility] [address] [place], [address] KETONE UR Normal Negative [facility] Comment on above: Order Comment: COLLE CTOR TO SPECIFY Result Comment: UTO Performed By: #### L 506.1001, L7000.7000, L506.0400, L503.0106, L3300.0700, L300.3900, L500.4050, L803.2200, L3410.9992, L3200.1100, L501.6710, L400.0001, L501.9985, L501.9520, L3100.3425, L500.4100, L3890.6202, L504.2610, L501.5101, L503.6005 ####[facility] [address] [place], [place], [phone] LEUK ESTERASE Normal Negative [facility] Comment on above: Order Comment: COLLE CTOR TO SPECIFY Result Comment: UTO Performed By: #### L 506.1001, L7000.7000, L506.0400, L503.0106, L3300.0700, L300.3900, L500.4050, L803.2200, L3410.9992, L3200.1100, L501.6710, L400.0001, L501.9985, L501.9520, L3100.3425, L500.4100, L3890.6202, L504.2610, L501.5101, L503.6005 ####[facility] [address] [place], [place], [address] Mucus Ql (Urine sed) 0 SEEN Normal [facility] Comment on above: Order Comment: COLLE CTOR TO SPECIFY Result Comment: UTO Performed By: #### L 506.1001, L7000.7000, L506.0400, L503.0106, L3300.0700, L300.3900, L500.4050, L803.2200, L3410.9992, L3200.1100, L501.6710, L400.0001, L501.9985, L501.9520, L3100.3425, L500.4100, L3890.6202, L504.2610, L501.5101, L503.6005 ####[facility] [address] [facility] [place], [place], [phone] Nitrite Ql (U) Normal Negative [facility] Comment on above: Order Comment: COLLE CTOR TO SPECIFY Result Comment: UTO Performed By: #### L 506.1001, L7000.7000, L506.0400, L503.0106, L3300.0700, L300.3900, L500.4050, L803.2200, L3410.9992, L3200.1100, L501.6710, L400.0001, L501.9985, L501.9520, L3100.3425, L500.4100, L3890.6202, L504.2610, L501.5101, L503.6005 ####[facility] [address] [facility] [place], [place], [phone] OCCULT BLOOD-UR Normal Negative [facility] Comment on above: Order Comment: GAVIOTA CTOR TO SPECIFY Result Comment: UTO Performed By: #### L 506.1001, L7000.7000, L506.0400, L503.0106, L3300.0700, L300.3900, L500.4050, L803.2200, L3410.9992, L3200.1100, L501.6710, L400.0001, L501.9985, L501.9520, L3100.3425, L500.4100, L3890.6202, L504.2610, L501.5101, L503.6005 ####[facility] [address] [place], [place], [phone] pH UR Normal 5.0 - 8.[address] [facility] Comment on above: Order Comment: GAVIOTA CTOR TO SPECIFY Result Comment: UTO Performed By: #### L 506.1001, L7000.7000, L506.0400, L503.0106, L3300.0700, L300.3900, L500.4050, L803.2200, L3410.9992, L3200.1100, L501.6710, L400.0001, L501.9985, L501.9520, L3100.3425, L500.4100, L3890.6202, L504.2610, L501.5101, L503.6005 ####[facility] [address] [place], [place], [phone] PROT DIPSTX Normal Negative [facility] Comment on above: Order Comment: GAVIOTA CTOR TO SPECIFY Result Comment: UTO Performed By: #### L 506.1001, L7000.7000, L506.0400, L503.0106, L3300.0700, L300.3900, L500.4050, L803.2200, L3410.9992, L3200.1100, L501.6710, L400.0001, L501.9985, L501.9520, L3100.3425, L500.4100, L3890.6202, L504.2610, L501.5101, L503.6005 ####[facility] [address] [place], [place], [phone] RBC 0 SEEN Normal 0-[address] [facility] Comment on above: Order Comment: GAVIOTA CTOR TO SPECIFY Result Comment: UTO Performed By: #### L 506.1001, L7000.7000, L506.0400, L503.0106, L3300.0700, L300.3900, L500.4050, L803.2200, L3410.9992, L3200.1100, L501.6710, L400.0001, L501.9985, L501.9520, L3100.3425, L500.4100, L3890.6202, L504.2610, L501.5101, L503.6005 ####[facility] [address] [place], [place], [phone] SP.GR. DIPSTX Normal 1.002-1.[address] [facility] Comment on above: Order Comment: COLLE CTOR TO SPECIFY Result Comment: UTO Performed By: #### L 506.1001, L7000.7000, L506.0400, L503.0106, L3300.0700, L300.3900, L500.4050, L803.2200, L3410.9992, L3200.1100, L501.6710, L400.0001, L501.9985, L501.9520, L3100.3425, L500.4100, L3890.6202, L504.2610, L501.5101, L503.6005 ####[facility] [address] [place], [address] UR Preservative Normal [facility] Comment on above: Order Comment: COLLE CTOR TO SPECIFY Result Comment: UTO Performed By: #### L 506.1001, L7000.7000, L506.0400, L503.0106, L3300.0700, L300.3900, L500.4050, L803.2200, L3410.9992, L3200.1100, L501.6710, L400.0001, L501.9985, L501.9520, L3100.3425, L500.4100, L3890.6202, L504.2610, L501.5101, L503.6005 ####[facility] [address] [place], [place], [phone] UROBILI Normal Normal [facility] Comment on above: Order Comment: COLLE CTOR TO SPECIFY Result Comment: UTO Performed By: #### L 506.1001, L7000.7000, L506.0400, L503.0106, L3300.0700, L300.3900, L500.4050, L803.2200, L3410.9992, L3200.1100, L501.6710, L400.0001, L501.9985, L501.9520, L3100.3425, L500.4100, L3890.6202, L504.2610, L501.5101, L503.6005 ####[facility] [address] [place], [place], [phone] WBC 0 SEEN Normal 0-[address] [facility] Comment on above: Order Comment: COLLE CTOR TO SPECIFY Result Comment: UTO Performed By: #### L 506.1001, L7000.7000, L506.0400, L503.0106, L3300.0700, L300.3900, L500.4050, L803.2200, L3410.9992, L3200.1100, L501.6710, L400.0001, L501.9985, L501.9520, L3100.3425, L500.4100, L3890.6202, L504.2610, L501.5101, L503.6005 ####[facility] [address] [facility] [place], [place], [phone] Urine Drug Screen (VISTA)on 12-04-2024 AMPHETAMINES Negative Normal <1000 ng/mL [facility] Comment on above: Order Comment: UNK Performed By: #### L 3600.5000, L501.0900, L501.7400, L505.5000, L502.0500 ####[facility] [address] [place], [place], [phone] BARBITIURATES Negative Normal < 200 ng/mL [facility] Comment on above: Order Comment: UNK Performed By: #### L 3600.5000, L501.0900, L501.7400, L505.5000, L502.0500 ####[facility] [address] [place], [address] BENZODIAZIPINE Positive Normal < 200 ng/mL [facility] Comment on above: Order Comment: UNK Result Comment: If c onfirmation testing is needed, a separate order will berequired to send out testing to the reference laboratory. Performed By: #### L 3600.5000, L501.0900, L501.7400, L505.5000, L502.0500 ####[facility] [address] [place], [address] BUP Ur Drug Scr Negative Normal < 200 ng/mL [facility] Comment on above: Order Comment: UNK Performed By: #### L 3600.5000, L501.0900, L501.7400, L505.5000, L502.0500 ####[facility] [address] [place], [address] COCAINE Negative Normal < 300 ng/mL [facility] Comment on above: Order Comment: UNK Performed By: #### L 3600.5000, L501.0900, L501.7400, L505.5000, L502.0500 ####[facility] [address] [place], [address] Fentanyl Negative Normal <5 ng/mL [facility] Comment on above: Order Comment: UNK Result Comment: CONF IRMATORY TESTING FOR ALL POSITIVE URINE DRUG SCREENRESULTS WILL ONLY BE SENT OUT UPON PHYSICIAN ORDER.Ortega Pro Urine Drug Screen methods provide only preliminaryanalytical test results. A more specific alternate chemicalmethod must be used in order to obtain a confirmedanalytical result. Gas chromatography/mass spectrometery(GC/MS) is the preferred confirmatory method. Clinicalconsideration and professional judgement should be appliedto any drug of abuse test result, particularly whenpreliminary positive results are used.Urine TCA testing must be ordered separately. Use testmnemonic: UTCA Performed By: #### L 3600.5000, L501.0900, L501.7400, L505.5000, L502.0500 ####[facility] [address] [place], [address] METHADONE Negative Normal < 300 ng/mL [facility] Comment on above: Order Comment: UNK Performed By: #### L 3600.5000, L501.0900, L501.7400, L505.5000, L502.0500 ####[facility] [address] [place], [address] OPIATES Negative Normal < 300 ng/mL [facility] Comment on above: Order Comment: UNK Performed By: #### L 3600.5000, L501.0900, L501.7400, L505.5000, L502.0500 ####[facility] [address] [place], [address] OXYCODONE Negative Normal < 100 ng/mL [facility] Comment on above: Order Comment: UNK Performed By: #### L 3600.5000, L501.0900, L501.7400, L505.5000, L502.0500 ####[facility] [address] [place], [address] PCP Negative Normal < 25 ng/mL [facility] Comment on above: Order Comment: UNK Performed By: #### L 3600.5000, L501.0900, L501.7400, L505.5000, L502.0500 ####[facility] [address] [place], [address] THC Negative Normal < 50 ng/mL [facility] Comment on above: Order Comment: UNK Performed By: #### L 3600.5000, L501.0900, L501.7400, L505.5000, L502.0500 ####[facility] [address] [place], [address] Urine albumin measurement wi detection limit of 20 mg/L or less (mass/volume)Ordered By: Alexx Castillo on 12-04-2024 Albumin DL <= 20 mg/L (U) [Mass/Vol] < 12.0 mg/L <20 mg/L [facility] Urine phencyclidine (PCP) de tectionOrdered By: Alexx Castillo on 12-04-2024 Phencyclidine Ql (U) Negative < 25 ng/mL [facility] Urine protein measurement (m ass/volume)Ordered By: Alexx Castillo on 12-04-2024 Protein (U) [Mass/Vol] 27.8 mg/dL High 0.0-12.0 [facility] Urine protein/creatinine mas s ratioOrdered By: Alexx Castillo on 12-04-2024 Protein/Creatinine (U) [Mass ratio] 480 mg/g CRE High 0-[address] [facility] Vitamin B12on 12-04-2024 Cobalamin (Vitamin B12) [Mass/Vol] 477 pg/mL Normal 180-[address] [facility] Comment on above: Performed By: #### L 506.1001, L7000.7000, L506.0400, L503.0106, L3300.0700, L300.3900, L500.4050, L803.2200, L3410.9992, L3200.1100, L501.6710, L400.0001, L501.9985, L501.9520, L3100.3425, L500.4100, L3890.6202, L504.2610, L501.5101, L503.6005 ####[facility] [address] [place], [place], [phone] Vitamin B12 ser/plasOrdered By: Alexx Castillo on 12-04-2024 Cobalamin (Vitamin B12) [Mass/Vol] 477 pg/mL 180-[address] [facility] Vitamin D,25 Hydroxyon 12-04 Vitamin D 25-OH 21.0 ng/mL Low 30-[address] [facility] Comment on above: Result Comment: Radha min D StatusDeficiency: <20 ng/mL (50nmol/L)Insufficiency: 20-30 ng/mL (50-75 nmol/L)Sufficiency: 30-100 ng/mL (75-250 nmol/L)Toxicity: >100 ng/mL (>250 nmol/L) Performed By: #### L 506.1001, L7000.7000, L506.0400, L503.0106, L3300.0700, L300.3900, L500.4050, L803.2200, L3410.9992, L3200.1100, L501.6710, L400.0001, L501.9985, L501.9520, L3100.3425, L500.4100, L3890.6202, L504.2610, L501.5101, L503.6005 ####[facility] [id number] [place], [address] White blood cell (WBC) count Ordered By: Alexx Castillo on 12-04-2024 WBC (Bld) [#/Vol] 6.1 10*3/uL 4.4-11.0 [facility] Inital Evaluation (1) - PTon 11-25-2024 Inital Evaluation (1) - PT Normal [facility] Absolute lymphocyte countOrd ered By: Mackenzie Hernandez on 11-24-2024 Lymphocytes Auto (Unsp spec) [#/Vol] 0.81 10*3/uL Low 0.83-4.[address] [facility] Absolute neutrophil countOrd ered By: Mackenzie Hernandez on 11-24-2024 Neutrophils (Bld) [#/Vol] 4.0 10*3/uL 2.0-7.[address] [facility] Anion gap in Serum or Plasma Ordered By: Mackenzie Hernandez on 11-24-2024 Anion gap [Moles/Vol] 13 mmol/L 5-15 [facility] Automated lymphocyte count a s percentage of total leukocytesOrdered By: Mackenzie Hernandez on 11-24-2024 Lymphocytes/100 WBC Auto (Unsp spec) 14.2 % Low 19-[address] [facility] BUN/creatinine ratioOrdered By: Mackenzie Hernandez on 11-24-2024 Urea nitrogen/Creatinine [Mass ratio] 29.1 mg/mg High 10-[address] [facility] Basophil percentageOrdered B y: Mackenzie Hernandez on 11-24-2024 Basophils/100 WBC (Bld) 0.9 % 0-1 [facility] Bilirubin, totalOrdered By: Mackenzie Hernandez on 11-24-2024 Bilirubin [Mass/Vol] 0.45 mg/dL 0.00-1.30 [facility] CBC W/Diff, Automatedon 11-01 Absolute Lymph 0.81 X10 3/uL Low 0.83-4.[address] [facility] Comment on above: Performed By: #### L 501.9520, L500.4050, L506.0400, L100.0100, L501.3620 ####[facility] [address] [place], [address] Absolute Neut 4.0 X10 3/uL Normal 2.0-7.[address] [facility] Comment on above: Performed By: #### L 501.9520, L500.4050, L506.0400, L100.0100, L501.3620 ####[facility] [address] [place], [address] Basophils/100 WBC (Bld) 0.9 % Normal 0-1 [facility] Comment on above: Performed By: #### L 501.9520, L500.4050, L506.0400, L100.0100, L501.3620 ####[facility] [address] [place], [address] Eosinophils/100 WBC (Bld) 5.6 % High 0-[address] [facility] Comment on above: Performed By: #### L 501.9520, L500.4050, L506.0400, L100.0100, L501.3620 ####[facility] [address] [place], [address] Erythrocyte distribution width (RBC) [Ratio] 14.6 % Normal 11.6-14.[address] [facility] Comment on above: Performed By: #### L 501.9520, L500.4050, L506.0400, L100.0100, L501.3620 ####[facility] [address] [place], [address] Hematocrit (Bld) [Volume fraction] 42.7 % Normal 37-[address] [facility] Comment on above: Performed By: #### L 501.9520, L500.4050, L506.0400, L100.0100, L501.3620 ####[facility] [address] [place], [address] Hemoglobin (Bld) [Mass/Vol] 14.3 g/dL Normal 12.0-15.[address] [facility] Comment on above: Performed By: #### L 501.9520, L500.4050, L506.0400, L100.0100, L501.3620 ####[facility] [address] [place], [address] IG% 0.400 Normal 0.0-0.[address] [facility] Comment on above: Result Comment: IG% - Immature Granulocytes (promyelocytes, myelocytes andmetamyelocytes) > 1% indicates that a LEFT SHIFT is Present. Performed By: #### L 501.9520, L500.4050, L506.0400, L100.0100, L501.3620 ####[facility] [address] [place], [address] Lymphocytes/100 WBC (Bld) 14.2 % Low 19-[address] [facility] Comment on above: Performed By: #### L 501.9520, L500.4050, L506.0400, L100.0100, L501.3620 ####[facility] [address] [place], [address] MCH (RBC) [Entitic mass] 31.0 pg Normal 27.0-32.[address] [facility] Comment on above: Performed By: #### L 501.9520, L500.4050, L506.0400, L100.0100, L501.3620 ####[facility] [address] [place], [address] MCHC (RBC) [Mass/Vol] 33.5 g/dL Normal 32-36 [facility] Comment on above: Performed By: #### L 501.9520, L500.4050, L506.0400, L100.0100, L501.3620 ####[facility] [address] [place], [address] MCV (RBC) [Entitic vol] 92.4 fL Normal 81-99 [facility] Comment on above: Performed By: #### L 501.9520, L500.4050, L506.0400, L100.0100, L501.3620 ####[facility] [address] [place], [address] Monocytes/100 WBC (Bld) 9.5 % Normal 0-10 [facility] Comment on above: Performed By: #### L 501.9520, L500.4050, L506.0400, L100.0100, L501.3620 ####[facility] [address] [place], [address] Neutrophils/100 WBC (Bld) 69.4 % Normal 47-[address] [facility] Comment on above: Performed By: #### L 501.9520, L500.4050, L506.0400, L100.0100, L501.3620 ####[facility] [address] [place], [address] Nucleated RBC (Bld) [#/Vol] 0 10*3/uL Normal 0-[address] [facility] Comment on above: Performed By: #### L 501.9520, L500.4050, L506.0400, L100.0100, L501.3620 ####[facility] [address] [place], [address] Platelet mean volume (Bld) [Entitic vol] 12.0 fL Normal 6.2-12.[address] [facility] Comment on above: Performed By: #### L 501.9520, L500.4050, L506.0400, L100.0100, L501.3620 ####[facility] [address] [place], [address] Platelets (Bld) [#/Vol] 274 10*3/uL Normal 150-[address] [facility] Comment on above: Performed By: #### L 501.9520, L500.4050, L506.0400, L100.0100, L501.3620 ####[facility] [address] [place], [address] RBC (Bld) [#/Vol] 4.62 10*6/uL Normal 4.2-5.4 [facility] Comment on above: Performed By: #### L 501.9520, L500.4050, L506.0400, L100.0100, L501.3620 ####[facility] [address] [place], [address] RDW SD 49.9 fl High 35.1-43.[address] [facility] Comment on above: Performed By: #### L 501.9520, L500.4050, L506.0400, L100.0100, L501.3620 ####[facility] [address] [place], [address] WBC (Bld) [#/Vol] 5.7 10*3/uL Normal 4.4-11.0 [facility] Comment on above: Performed By: #### L 501.9520, L500.4050, L506.0400, L100.0100, L501.3620 ####[facility] [address] [place], [address] CPK Total, Creatine Kinaseon 11-24-2024 CPK TOTAL 5402 U/L High 24-[address] [facility] Comment on above: Performed By: #### L 501.9520, L500.4050, L506.0400, L100.0100, L501.3620 ####[facility] [address] [place], [address] Carbon dioxide, total [Moles /volume] in Central venous bloodOrdered By: Mackenzie Hernandez on 11-24-2024 CO2 [Moles/Vol] 23.1 mmol/L 21.0-32.[address] [facility] Chloride assayOrdered By: Wiliam Hernandez on 11-24-2024 Chloride [Moles/Vol] 99 mmol/L 98-108 [facility] Comprehensive Metabolic Prof ilon 11-24-2024 Albumin [Mass/Vol] 3.4 g/dL Low 3.5-5.0 [facility] Comment on above: Performed By: #### L 501.9520, L500.4050, L506.0400, L100.0100, L501.3620 ####[facility] [address] [place], [address] Albumin/Globulin [Mass ratio] 1.3 {ratio} Normal 0.9-2.[address] [facility] Comment on above: Performed By: #### L 501.9520, L500.4050, L506.0400, L100.0100, L501.3620 ####[facility] [address] [place], [address] ALK PHOS 49 U/L Normal 35-[address] [facility] Comment on above: Performed By: #### L 501.9520, L500.4050, L506.0400, L100.0100, L501.3620 ####[facility] [address] [place], [address] ALT [Catalytic activity/Vol] 319 U/L High <=[address] [facility] Comment on above: Performed By: #### L 501.9520, L500.4050, L506.0400, L100.0100, L501.3620 ####[facility] [address] [place], [address] AST [Catalytic activity/Vol] 356 U/L High <=[address] [facility] Comment on above: Performed By: #### L 501.9520, L500.4050, L506.0400, L100.0100, L501.3620 ####[facility] [address] [place], [address] Bilirubin [Mass/Vol] 0.45 mg/dL Normal 0.00-1.30 [facility] Comment on above: Performed By: #### L 501.9520, L500.4050, L506.0400, L100.0100, L501.3620 ####[facility] [address] [place], [address] BUN/CRE 29.1 RATIO High 10-[address] [facility] Comment on above: Performed By: #### L 501.9520, L500.4050, L506.0400, L100.0100, L501.3620 ####[facility] [address] [place], [address] Calcium [Mass/Vol] 9.3 mg/dL Normal 7.6-11.0 [facility] Comment on above: Performed By: #### L 501.9520, L500.4050, L506.0400, L100.0100, L501.3620 ####[facility] [address] [place], [address] Chloride [Moles/Vol] 99 mmol/L Normal 98-108 [facility] Comment on above: Performed By: #### L 501.9520, L500.4050, L506.0400, L100.0100, L501.3620 ####[facility] [address] [place], [address] CO2 [Moles/Vol] 23.1 mmol/L Normal 21.0-32.[address] [facility] Comment on above: Performed By: #### L 501.9520, L500.4050, L506.0400, L100.0100, L501.3620 ####[facility] [address] [place], [address] Creatinine [Mass/Vol] 0.40 mg/dL Low 0.70-1.20 [facility] Comment on above: Performed By: #### L 501.9520, L500.4050, L506.0400, L100.0100, L501.3620 ####[facility] [address] [place], [address] GAP 13 Normal 5-[address] [facility] Comment on above: Performed By: #### L 501.9520, L500.4050, L506.0400, L100.0100, L501.3620 ####[facility] [address] [place], [address] GFR/1.73 sq M.predicted among non-blacks MDRD (S/P/Bld) [Vol rate/Area] 117 mL/min/{1.73_m2} Normal >[address] [facility] Comment on above: Result Comment: mL/m in/1.73m2 CKD-EPI Creatinine Equation (2020) Performed By: #### L 501.9520, L500.4050, L506.0400, L100.0100, L501.3620 ####[facility] [address] [place], [address] Globulin (S) [Mass/Vol] 2.7 g/dL Normal 2.2-4.2 [facility] Comment on above: Performed By: #### L 501.9520, L500.4050, L506.0400, L100.0100, L501.3620 ####[facility] [address] [place], [address] Glucose [Mass/Vol] 114 mg/dL High 70-99 [facility] Comment on above: Performed By: #### L 501.9520, L500.4050, L506.0400, L100.0100, L501.3620 ####[facility] [address] [place], [address] Potassium [Moles/Vol] 4.4 mmol/L Normal 3.3-5.1 [facility] Comment on above: Performed By: #### L 501.9520, L500.4050, L506.0400, L100.0100, L501.3620 ####[facility] [address] [place], [address] Sodium [Moles/Vol] 135 mmol/L Normal 133-145 [facility] Comment on above: Performed By: #### L 501.9520, L500.4050, L506.0400, L100.0100, L501.3620 ####[facility] [address] [place], [address] T PROT 6.1 g/dL Normal 5.9-8.[address] [facility] Comment on above: Performed By: #### L 501.9520, L500.4050, L506.0400, L100.0100, L501.3620 ####[facility] [address] [place], [address] Urea nitrogen [Mass/Vol] 12 mg/dL Normal 4-[address] [facility] Comment on above: Performed By: #### L 501.9520, L500.4050, L506.0400, L100.0100, L501.3620 ####[facility] [address] [place], [address] Eosinophil percentageOrdered By: Mackenzie Hernandez on 11-24-2024 Eosinophils/100 WBC (Bld) 5.6 % High 0-[address] [facility] Erythrocyte distribution wid th ratioOrdered By: Mackenziejeison Hernandez on 11-24-2024 Erythrocyte distribution width (RBC) [Ratio] 14.6 % 11.6-14.[address] [facility] Erythrocyte distribution wid th standard deviationOrdered By: Mackenzie Hernandez on 11-24-2024 Erythrocyte distribution width (RBC) [Ratio] 49.9 fl High 35.1-43.[address] [facility] Glomerular filtration rate ( GFR) estimation/1.73 sq m using serum, plasma, or whole bOrdered By: Mackenziejeison Hernandez on 11-24-2024 GFR/1.73 sq M.predicted among non-blacks MDRD (S/P/Bld) [Vol rate/Area] 117 mL/min/{1.73_m2} >[address] [facility] Comment on above: mL/min/1.73m2 CKD-EP I Creatinine Equation (2020) Hematocrit Auto (Bld) [Volum e fraction]Ordered By: Mackenziejeison Hernandez on 11-24-2024 Hematocrit (Bld) [Volume fraction] 42.7 % 37-[address] [facility] Hemoglobin measurementOrdere d By: Mackenzie Hernandez on 11-24-2024 Hemoglobin (Bld) [Mass/Vol] 14.3 g/dL 12.0-15.[address] [facility] Immature granulocytes/100 WB C Auto (Bld)Ordered By: Mackenzie Hernandez on 11-24-2024 Immature granulocytes/100 WBC (Bld) 0.400 % 0.0-0.[address] [facility] Comment on above: IG% - Immature Granu locytes (promyelocytes, myelocytes and metamyelocytes) > 1% indicates that a LEFT SHIFT is Present. Laboratory - Chemistry and C hemistry - challengeOrdered By: Mackenzie Hernandez on 11-24-2024 AST [Catalytic activity/Vol] 356 U/L High <[address] [facility] MCV (mean corpuscular volume ) determinationOrdered By: Mackenzie Hernandez 11-24-2024 MCV (RBC) [Entitic vol] 92.4 fL 81-99 [facility] Mean corpuscular hemoglobin (MCH) determinationOrdered By: Mackenzie Hernandez on 11-24-2024 MCH (RBC) [Entitic mass] 31.0 pg 27.0-32.[address] [facility] Mean corpuscular hemoglobin concentration (MCHC) determinationOrdered By: Mackenzie Hernandez on 11-24-2024 MCHC (RBC) [Mass/Vol] 33.5 g/dL 32-36 [facility] Mean platelet volume determi nationOrdered By: Mackenzie Hernandez on 11-24-2024 Platelet mean volume (Bld) [Entitic vol] 12.0 fL 6.2-12.[address] [facility] Monocyte percentageOrdered B y: Mackenzie Hernandez on 11-24-2024 Monocytes/100 WBC (Bld) 9.5 % 0-10 [facility] Neutrophil percentageOrdered By: Mackenzie Hernandez on 11-24-2024 Neutrophils/100 WBC (Bld) 69.4 % 47-[address] [facility] No Panel InformationOrdered By: Mackenzie Hernandez on 11-24-2024 356 U/L High <[address] [facility] Nucleated red blood cell per centageOrdered By: Mackenzie Hernandez on 11-24-2024 Nucleated RBC/100 WBC (Bld) [Ratio] 0 % 0-[address] [facility] Platelet countOrdered By: Wiliam Hernandez on 11-24-2024 Platelets (Bld) [#/Vol] 274 10*3/uL 150-[address] [facility] Potassium measurement (mass/ volume)Ordered By: Mackenzie Hernandez on 11-24-2024 Potassium (Unsp spec) [Mass/Vol] 4.4 mmol/L 3.3-5.[address] [facility] RBC Auto (Bld) [#/Vol]Ordere d By: Mackenzie Hernandez on 11-24-2024 RBC (Bld) [#/Vol] 4.62 10*6/uL 4.2-5.4 [facility] Serum creatinine measurement (mass/volume)Ordered By: Mackenzie Hernandez on 11-24-2024 Creatinine [Mass/Vol] 0.40 mg/dL Low 0.70-1.20 [facility] Serum globulin measurementOr dered By: Mackenzie Hernandez on 11-24-2024 Globulin (S) [Mass/Vol] 2.7 g/dL 2.2-4.2 [facility] Serum glucose measurement (m ass/volume)Ordered By: Mackenzie Hernandez on 11-24-2024 Glucose [Mass/Vol] 114 mg/dL High 70-99 [facility] Serum or plasma alanine reynoso otransferase (ALT) measurementOrdered By: Macknezie Hernandez on 11-24-2024 ALT [Catalytic activity/Vol] 319 U/L High <[address] [facility] Serum or plasma albumin anish urement (mass/volume)Ordered By: Mackenzie Hernandez on 11-24-2024 Albumin [Mass/Vol] 3.4 g/dL Low 3.5-5.0 [facility] Serum or plasma albumin/glob ulin mass ratioOrdered By: Mackenzie Hernandez on 11-24-2024 Albumin/Globulin [Mass ratio] 1.3 {ratio} 0.9-2.[address] [facility] Serum or plasma alkaline brian sphatase measurementOrdered By: Mackenzie Hernandez on 11-24-2024 ALP [Catalytic activity/Vol] 49 U/L 35-[address] [facility] Serum or plasma calcium anish urement (mass/volume)Ordered By: Mackenzie Hernandez on 11-24-2024 Calcium [Mass/Vol] 9.3 mg/dL 7.6-11.0 [facility] Serum or plasma creatine kin ase activityOrdered By: Mackenzie Hernandez on 11-24-2024 CK [Catalytic activity/Vol] 5402 U/L High 24-[address] [facility] Serum or plasma urea nitroge n measurement (mass/volume)Ordered By: Mackenzie Hernandez on 11-24-2024 Urea nitrogen [Mass/Vol] 12 mg/dL 4-[address] [facility] Sodium levelOrdered By: Nicole Hernandez on 11-24-2024 Sodium [Moles/Vol] 135 mmol/L 133-145 [facility] T4 Free Directon 11-24-2024 T4 FREE DIRECT 1.20 ng/dL Normal 0.76-1.[address] [facility] Comment on above: Performed By: #### L 501.9520, L500.4050, L506.0400, L100.0100, L501.3620 ####[facility] [address] [place], [place], [address] T4 freeOrdered By: Mackenzie ramesh on 11-24-2024 Free T4 [Mass/Vol] 1.20 ng/dL 0.76-1.46 [facility] TSH DL <= 0.005 mIU/L QnOrde red By: Mackenzie Hernandez on 11-24-2024 TSH Qn 6.280 uIU/mL High 0.300-4.[address] [facility] Thyroid Stim Hormone (TSH)on 11-24-2024 TSH 6.280 uIU/mL High 0.300-4.[address] [facility] Comment on above: Performed By: #### L 501.9520, L500.4050, L506.0400, L100.0100, L501.3620 ####[facility] [address] [place], [place], [id number] Total proteinOrdered By: Arian Hernandez on 11-24-2024 Protein [Mass/Vol] 6.1 g/dL 5.9-8.4 [facility] White blood cell (WBC) count Ordered By: Mackenzie Hernandez on 11-24-2024 WBC (Bld) [#/Vol] 5.7 10*3/uL 4.4-11.0 [facility] Gastroenterology Visit Repor ton 11-05-2024 Gastroenterology Visit Report Normal [facility] [id number] 11-04-2024 [facility] Misc. COMMENT Normal . [facility] Comment on above: Order Comment: [id number] 9ELF SERUM RF Result Comment: Test Ordered: [id number] Enhanced Liver Fibrosis (ELF)ELF(TM) Score 12.75 [H ] BN Reference Range: <9.80ELF(TM) Score Interpretation:Risk cut-offs to [...] STELLAR trials. J Hepatol. 2020 Sep;73(1):26-39.Performed at: [facility] [facility] [address] [place], [place] [id number] Director: Last Thomson MD, Phone: [phone] at: [employer] [address] [id number] Director: Kevin Prasad PhD, Phone: [phone] Performed By: #### L 3100.7000, L3410.9992 ####[facility] [address] [place], [place], [id number] Aldolaseon 11-03-2024 ALDOLASE > 56.0 High 3.3-10.[address] [facility] Comment on above: Result Comment: Perf ormed at: [employer] [id number] Director: Kevin Prasad PhD, Phone: [phone] Performed By: #### L 3100.7000, L3410.9992 ####[facility] [address] [place], [place], [id number] Aldolase ser/plasOrdered By: Christi Shore on 10-30-2024 Aldolase [Catalytic activity/Vol] mU/mL High 3.3-10.[address] [facility] Comment on above: Performed at: [employer] [address] [id number] Director: Kevin Prasad PhD, Phone: [phone] Thyroid Antibodieson 025 TG AB < 1.0 Normal 0.0-0.[address] [facility] Comment on above: Result Comment: Thyr oglobulin Antibody measured by Son BracketzMethodologyIt should be noted that the presence of thyroglobulinantibodies may not be pathogenic nor diagnostic, especiallyat very low levels. The assay delineator has found thatfour percent of individuals without evidence of thyroiddisease or autoimmunity will have positive TgAb levels upto 4 IU/mL.Performed at: [address] [id number] Director: Kevin Prasad PhD, Phone: [phone] Performed By: #### L 506.0400, L501.9310, L501.61618, L501.9520, L3300.6750 ####[facility] [address] [place], [address] THYR PEROX AB 275 IU/mL High 0-[address] [facility] Comment on above: Performed By: #### L 506.0400, L501.9310, L501.59255, L501.9520, L3300.6750 ####[facility] [address] [place], [address] Lyme Screen W/Reflex WBon LYME SCREEN Ab Negative Normal Negative [facility] Comment on above: Order Comment: ADDED ON AT [facility] FOR [facility]ICKER RESULTS Result Comment: Lyme antibodies not detected. Reflex testing is notindicated.No laboratory evidence of infection with B. burgdorferi(Lyme disease). Negative results may occur in patientsrecently infected (less than or equal to 14 days) with B.burgdorferi. If recent infection is suspected, repeattesting on a new sample collected in 7 to 14 days isrecommended. Performed By: #### L 7000.5300 ####[facility] [address] [place], [place], [id number] FERMÍN w/ Reflex Mult Confirmon 10-28-2024 ANTI-DNA (DS)AB TNP Normal [facility] Comment on above: Performed By: #### L 300.3900, L3400.0700, L3100.5450, L3100.0300, L500.3400, L800.1280, L803.2200, L3410.2920, L3100.0460, L3200.1400, L3300.1200 ####[facility] [address] [facility] [place], [place], [id number] ANTI-SS-A TNP Normal [facility] Comment on above: Performed By: #### L 300.3900, L3400.0700, L3100.5450, L3100.0300, L500.3400, L800.1280, L803.2200, L3410.2920, L3100.0460, L3200.1400, L3300.1200 ####[facility] [address] [facility] [place], [place], [address] ANTI-SS-B TNP Normal [facility] Comment on above: Performed By: #### L 300.3900, L3400.0700, L3100.5450, L3100.0300, L500.3400, L800.1280, L803.2200, L3410.2920, L3100.0460, L3200.1400, L3300.1200 ####[facility] [address] [facility] [place], [place], [address] ANCAon 10-28-2024 Atypical pANCA <1:20 Normal Neg:<1:[address] [facility] Comment on above: Result Comment: The atypical pANCA pattern has been observed in asignificant percentage of patients with ulcerative colitis,primary sclerosing cholangitis and autoimmune hepatitis. Performed By: #### L 300.3900, L3400.0700, L3100.5450, L3100.0300, L500.3400, L800.1280, L803.2200, L3410.2920, L3100.0460, L3200.1400, L3300.1200 ####[facility] [address] [facility] [address] [place], [place], [id number] Cytoplasmic Ab <1:20 Normal Neg:<1:[address] [facility] Comment on above: Performed By: #### L 300.3900, L3400.0700, L3100.5450, L3100.0300, L500.3400, L800.1280, L803.2200, L3410.2920, L3100.0460, L3200.1400, L3300.1200 ####[facility] [address] [place], [place], [address] Perinuclear Ab. <1:20 Normal Neg:<1:[address] [facility] Comment on above: Result Comment: The presence of positive fluorescence exhibiting P-ANCA orC-ANCA patterns alone is not specific for the diagnosis ofWegener's Granulomatosis (WG) or microscopic polyangiitis.Decisions about treatment should not be based solely onANCA IFA results. The [employer] ANCA Group Consensusrecommends follow up testing of positive sera with both MD-3 and MPO-ANCA enzyme immunoassays. As many as 5% serumsamples are positive only by EIA. Ref. AM J Clin [id number];111:507-513. Performed By: #### L 300.3900, L3400.0700, L3100.5450, L3100.0300, L500.3400, L800.1280, L803.2200, L3410.2920, L3100.0460, L3200.1400, L3300.1200 ####[facility] [address] [place], [place], [phone] Anti-Smooth Muscle ABSon ANTISMOOTH MUSC 22 Units Abnormal 0-[address] [facility] Comment on above: Result Comment: Nega tive 0 - 19 Weak positive 20 - 30 Moderate to strong positive >30 Actin Antibodies are found in 52-85% of patients with autoimmune hepatitis or chronic active hepatitis and in 22% of patients with primary biliary cirrhosis. Performed By: #### L 300.3900, L3400.0700, L3100.5450, L3100.0300, L500.3400, L800.1280, L803.2200, L3410.2920, L3100.0460, L3200.1400, L3300.1200 ####[facility] [address] [place], [address] Ceruloplasminon 10-28-2024 CERULOPLASMIN 21.8 mg/dL Normal 19.0-39.[address] [facility] Comment on above: Performed By: #### L 300.3900, L3400.0700, L3100.5450, L3100.0300, L500.3400, L800.1280, L803.2200, L3410.2920, L3100.0460, L3200.1400, L3300.1200 ####[facility] [address] [place], [address] Free T3on 10-28-2024 Free T3 [Mass/Vol] 2.7 pg/mL Normal 2.18-3.98 [facility] Comment on above: Performed By: #### L 506.0400, L501.9310, L501.68610, L501.9520, L3300.6750 ####[facility] [address] [place], [address] Free M7Itvphjp By: Mahesh mcfarlane on 10-28-2024 Free T3 [Mass/Vol] 2.7 pg/mL 2.18-3.98 [facility] Hepatitis A AB, Totalon - HEPATITIS A,TOT Negative Normal Negative [facility] Comment on above: Result Comment: Comm ent: The HAV total antibody assay detects both IgG andIgM but does not differentiate between them. A negativeresult suggests susceptibility to infection. A positiveresult could be due to vaccination, previously resolvedinfection or active infection. Testing for HAV IgM shouldbe performed if active HAV infection is suspected. Labcorpoffers profiles that will automatically reflex positive HAVtotal antibody results to IgM (e.g., panel #[id number] HAVAntibody w/ Rfx).Performed at: [address] [id number] Director: Kevin Prasad PhD, Phone: [phone] Performed By: #### L 300.3900, L3400.0700, L3100.5450, L3100.0300, L500.3400, L800.1280, L803.2200, L3410.2920, L3100.0460, L3200.1400, L3300.1200 ####[facility] [address] [place], [place], [phone] Hepatitis B Core Ab Totalon 10-28-2024 HEP B CORE,TOT Negative Normal Negative [facility] Comment on above: Performed By: #### L 300.3900, L3400.0700, L3100.5450, L3100.0300, L500.3400, L800.1280, L803.2200, L3410.2920, L3100.0460, L3200.1400, L3300.1200 ####[facility] [address] [place], [place], [phone] Immunoglobulin Aon IMMUNOGLOB A QN 248 mg/dL Normal 87-[address] [facility] Comment on above: Order Comment: N Performed By: #### L 300.3900, L3400.0700, L3100.5450, L3100.0300, L500.3400, L800.1280, L803.2200, L3410.2920, L3100.0460, L3200.1400, L3300.1200 ####[facility] [address] [place], [place], [address] Serum or plasma thyroperoxid ase antibody assay (units/volume)Ordered By: Mahesh Stauffer on 10-28-2024 TPO Ab Qn 275 [IU]/mL High 0-[address] [facility] T4 Free Directon 10-28-2024 T4 FREE DIRECT 0.90 ng/dL Normal 0.76-1.[address] [facility] Comment on above: Performed By: #### L 506.0400, L501.9310, L501.22764, L501.9520, L3300.6750 ####[facility] [address] [place], [place], [phone] T4 Total, Thyroxinon 025 T4 [Mass/Vol] 7.8 ug/dL Normal 4.8-13.[address] [facility] Comment on above: Performed By: #### L 506.0400, L501.9310, L501.26277, L501.9520, L3300.6750 ####[facility] [address] [place], [address] T4 freeOrdered By: Mahesh B eam on 10-28-2024 Free T4 [Mass/Vol] 0.90 ng/dL 0.76-1.46 [facility] TSH DL <= 0.005 mIU/L QnOrde red By: Zebulun Beam on 10-28-2024 TSH Qn 12.100 uIU/mL High 0.300-4.[address] [facility] Thyroid Stim Hormone (TSH)on 10-28-2024 TSH 12.100 uIU/mL High 0.300-4.[address] [facility] Comment on above: Performed By: #### L 506.0400, L501.9310, L501.08874, L501.9520, L3300.6750 ####[facility] [address] [place], [address] ThyroxineOrdered By: Zebulun Beam on 10-28-2024 T4 [Mass/Vol] 7.8 ug/dL 4.8-13.[address] [facility] t-Transglutaminase IgAon tTG IGA <2 Normal 0-[address] [facility] Comment on above: Result Comment: Nega tive 0 - 3 Weak Positive 4 - 10 Positive >10 Tissue Transglutaminase (tTG) has been identified as the endomysial antigen. Studies have demonstr- ated that endomysial IgA antibodies have over 99% specificity for gluten sensitive enteropathy. Performed By: #### L 300.3900, L3400.0700, L3100.5450, L3100.0300, L500.3400, L800.1280, L803.2200, L3410.2920, L3100.0460, L3200.1400, L3300.1200 ####[facility] [address] [place], [place], [phone] Anti-Mitochondrial ABon 10-01 ANTIMITOCHON AB <20.0 Normal 0.0-20.[address] [facility] Comment on above: Result Comment: Nega tive 0.0 - 20.0 Equivocal 20.1 - 24.9 Positive >24.9Mitochondrial (M2) Antibodies are found in 90-96% ofpatients with primary biliary cirrhosis. Performed By: #### L 300.3900, L3400.0700, L3100.5450, L3100.0300, L500.3400, L800.1280, L803.2200, L3410.2920, L3100.0460, L3200.1400, L3300.1200 ####[facility] [address] [place], [address] CPK Total, Creatine Kinaseon 10-27-2024 CPK TOTAL 5826 U/L High [facility] Comment on above: Order Comment: THY1 4 HNP.HEMA ORDERED CMP,CRP,CPK AND LDHINTERNAL ORDERS FROM ANURADHA AND Performed By: #### L 501.3620, L501.9520, L504.2610, L500.2500, L503.6550, L501.6710, L500.3400, L503.6030 ####[facility] [address] [place], [place], [phone] Anion gap in Serum or Plasma Ordered By: Christi Shore on 10-23-2024 Anion gap [Moles/Vol] 12 mmol/L 08-14 [facility] BUN/creatinine ratioOrdered By: Christi Shore on 10-23-2024 Urea nitrogen/Creatinine [Mass ratio] 27.7 mg/mg High 01-[address] [facility] Basic Metabolic Profile (BMP )on 10-23-2024 BUN/CRE 27.7 RATIO High 01-[address] [facility] Comment on above: Order Comment: PUBLICITY EXPERT.AT [facility] ORDERED CMP,CRP,AND LDH.INTERNAL ORDERS FROM ANURADHA AND Performed By: #### L 501.3620, L501.9520, L504.2610, L500.2500, L503.6550, L501.6710, L500.3400, L503.6030 ####[facility] [address] [place], [address] Calcium [Mass/Vol] 9.3 mg/dL Normal 7.6-11.0 [facility] Comment on above: Order Comment: PUBLICITY EXPERT.AT [facility] ORDERED CMP,CRP,AND LDH.INTERNAL ORDERS FROM ANURADHA AND Performed By: #### L 501.3620, L501.9520, L504.2610, L500.2500, L503.6550, L501.6710, L500.3400, L503.6030 ####[facility] [address] [place], [address] Chloride [Moles/Vol] 100 mmol/L Normal 98-108 [facility] Comment on above: Order Comment: PUBLICITY EXPERT.AT [facility] ORDERED CMP,CRP,AND LDH.INTERNAL ORDERS FROM ANURADHA AND Performed By: #### L 501.3620, L501.9520, L504.2610, L500.2500, L503.6550, L501.6710, L500.3400, L503.6030 ####[facility] [address] [place], [address] CO2 [Moles/Vol] 21.2 mmol/L Normal 21.0-32.[address] [facility] Comment on above: Order Comment: PUBLICITY EXPERT.AT [facility] ORDERED CMP,CRP,AND LDH.INTERNAL ORDERS FROM ANURADHA AND Performed By: #### L 501.3620, L501.9520, L504.2610, L500.2500, L503.6550, L501.6710, L500.3400, L503.6030 ####[facility] [address] [place], [address] Creatinine [Mass/Vol] 0.46 mg/dL Low 0.70-1.20 [facility] Comment on above: Order Comment: PUBLICITY EXPERT.AT [facility] ORDERED CMP,CRP,AND LDH.INTERNAL ORDERS FROM ANURADHA AND Performed By: #### L 501.3620, L501.9520, L504.2610, L500.2500, L503.6550, L501.6710, L500.3400, L503.6030 ####[facility] [address] [place], [place], [phone] GAP 12 Normal 5-[address] [facility] Comment on above: Order Comment: PUBLICITY EXPERT.AT [facility] ORDERED CMP,CRP,AND LDH.INTERNAL ORDERS FROM ANURADHA AND Performed By: #### L 501.3620, L501.9520, L504.2610, L500.2500, L503.6550, L501.6710, L500.3400, L503.6030 ####[facility] [address] [place], [place], [phone] GFR/1.73 sq M.predicted among non-blacks MDRD (S/P/Bld) [Vol rate/Area] 113 mL/min/{1.73_m2} Normal >[address] [facility] Comment on above: Order Comment: PUBLICITY EXPERT.AT [facility] ORDERED CMP,CRP,AND LDH.INTERNAL ORDERS FROM ANURADHA AND Result Comment: mL/m in/1.73m2 CKD-EPI Creatinine Equation (2020) Performed By: #### L 501.3620, L501.9520, L504.2610, L500.2500, L503.6550, L501.6710, L500.3400, L503.6030 ####[facility] [address] [facility] [address] Glucose [Mass/Vol] 131 mg/dL High 70-99 [facility] Comment on above: Order Comment: PUBLICITY EXPERT.AT [facility] ORDERED CMP,CRP,AND LDH.INTERNAL ORDERS FROM ANURADHA AND Performed By: #### L 501.3620, L501.9520, L504.2610, L500.2500, L503.6550, L501.6710, L500.3400, L503.6030 ####[facility] [address] [place], [address] Potassium [Moles/Vol] 4.6 mmol/L Normal 3.3-5.1 [facility] Comment on above: Order Comment: PUBLICITY EXPERT.AT [facility] ORDERED CMP,CRP,AND LDH.INTERNAL ORDERS FROM ANURADHA AND Performed By: #### L 501.3620, L501.9520, L504.2610, L500.2500, L503.6550, L501.6710, L500.3400, L503.6030 ####[facility] [address] [place], [address] Sodium [Moles/Vol] 134 mmol/L Normal 133-145 [facility] Comment on above: Order Comment: PUBLICITY EXPERT.AT [facility] ORDERED CMP,CRP,AND LDH.INTERNAL ORDERS FROM ANURADHA AND Performed By: #### L 501.3620, L501.9520, L504.2610, L500.2500, L503.6550, L501.6710, L500.3400, L503.6030 ####[facility] [address] [place], [address] Urea nitrogen [Mass/Vol] 13 mg/dL Normal 4-[address] [facility] Comment on above: Order Comment: PUBLICITY EXPERT.AT [facility] ORDERED CMP,CRP,AND LDH.INTERNAL ORDERS FROM ANURADHA AND Performed By: #### L 501.3620, L501.9520, L504.2610, L500.2500, L503.6550, L501.6710, L500.3400, L503.6030 ####[facility] [address] [place], [place], [phone] Bilirubin directOrdered By: Christi Shore on 10-23-2024 Bilirubin.direct [Mass/Vol] 0.19 mg/dL 0.00-0.[address] [facility] Bilirubin, totalOrdered By: Christi Shore on 10-23-2024 Bilirubin [Mass/Vol] 0.44 mg/dL 0.00-1.30 [facility] CRPon 10-23-2024 C-REACTIVE PROT 8.85 mg/L High 0.0-3.[address] [facility] Comment on above: Order Comment: PUBLICITY EXPERT.AT [facility] ORDERED CMP,CRP,AND LDH.INTERNAL ORDERS FROM ANURADHA AND Performed By: #### L 501.3620, L501.9520, L504.2610, L500.2500, L503.6550, L501.6710, L500.3400, L503.6030 ####[facility] [address] [place], [place], [address] Carbon dioxide, total [Moles /volume] in Central venous bloodOrdered By: Christi Shore on 10-23-2024 CO2 [Moles/Vol] 21.2 mmol/L 21.0-32.[address] [facility] Chloride assayOrdered By: Randall Shore on 10-23-2024 Chloride [Moles/Vol] 100 mmol/L 98-108 [facility] Ferritinon 10-23-2024 Ferritin [Mass/Vol] 280 ng/mL Normal 22-378 [facility] Comment on above: Order Comment: PUBLICITY EXPERT.AT [facility] ORDERED CMP,CRP,AND LDH.INTERNAL ORDERS FROM ANURADHA AND Performed By: #### L 501.3620, L501.9520, L504.2610, L500.2500, L503.6550, L501.6710, L500.3400, L503.6030 ####[facility] [address] [place], [place], [id number] Glomerular filtration rate ( GFR) estimation/1.73 sq m using serum, plasma, or whole bOrdered By: Christi Shore on 10-23-2024 GFR/1.73 sq M.predicted among non-blacks MDRD (S/P/Bld) [Vol rate/Area] 113 mL/min/{1.73_m2} >[address] [facility] Comment on above: mL/min/1.73m2 CKD-EP I Creatinine Equation (2020) International normalized rat io (INR) calculationOrdered By: Christi Shore on 10-23-2024 INR Coag (Bld) [Relative time] 1.1 {INR} [facility] Iron measurement (mass/mass) Ordered By: Christi Shore on 10-23-2024 Iron (Unsp spec) [Mass/Mass] 63 ug/dL 50-[address] [facility] Iron+Iron Binding Capacityon 10-23-2024 Iron [Mass/Vol] 63 ug/dL Normal 50-[address] [facility] Comment on above: Order Comment: [facility] CMP,CRP,AND LDH.INTERNAL ORDERS FROM ANURADHA AND Performed By: #### L 501.3620, L501.9520, L504.2610, L500.2500, L503.6550, L501.6710, L500.3400, L503.6030 ####[facility] [address] [place], [place], [phone] UIBC 200 ug/dL Low 228-[address] [facility] Comment on above: Order Comment: [facility] ORDERED CMP,CRP,AND LDH.INTERNAL ORDERS FROM ANURADHA AND Performed By: #### L 501.3620, L501.9520, L504.2610, L500.2500, L503.6550, L501.6710, L500.3400, L503.6030 ####[facility] [address] [place], [address] LDHon 10-23-2024 LDH 1179 U/L High 84-[address] [facility] Comment on above: Order Comment: PUBLICITY EXPERT.AT [facility] ORDERED CMP,CRP,AND LDH.INTERNAL ORDERS FROM ANURADHA AND Performed By: #### L 501.3620, L501.9520, L504.2610, L500.2500, L503.6550, L501.6710, L500.3400, L503.6030 ####[facility] [address] [facility] [address] [place], [place], [phone] Laboratory - Chemistry and C hemistry - challengeOrdered By: Christi Shore on 10-23-2024 AST [Catalytic activity/Vol] 472 U/L High <[address] [facility] Lactate dehydrogenase (LDH) measurementOrdered By: Christi Shore on 10-23-2024 LDH [Catalytic activity/Vol] 1179 U/L High 84-[address] [facility] Liver Profileon 10-23-2024 Albumin [Mass/Vol] 3.3 g/dL Low 3.5-5.0 [facility] Comment on above: Order Comment: PUBLICITY EXPERT.AT [facility] ORDERED CMP,CRP,AND LDH.INTERNAL ORDERS FROM ANURADHA AND Performed By: #### L 501.3620, L501.9520, L504.2610, L500.2500, L503.6550, L501.6710, L500.3400, L503.6030 ####[facility] [address] [place], [address] ALK PHOS 54 U/L Normal 35-[address] [facility] Comment on above: Order Comment: PUBLICITY EXPERT.AT [facility] ORDERED CMP,CRP,AND LDH.INTERNAL ORDERS FROM ANURADHA AND Performed By: #### L 501.3620, L501.9520, L504.2610, L500.2500, L503.6550, L501.6710, L500.3400, L503.6030 ####[facility] [address] [place], [address] ALT [Catalytic activity/Vol] 415 U/L High <=[address] [facility] Comment on above: Order Comment: PUBLICITY EXPERT.AT [facility] ORDERED CMP,CRP,AND LDH.INTERNAL ORDERS FROM ANURADHA AND Performed By: #### L 501.3620, L501.9520, L504.2610, L500.2500, L503.6550, L501.6710, L500.3400, L503.6030 ####[facility] [address] [place], [address] AST [Catalytic activity/Vol] 472 U/L High <=[address] [facility] Comment on above: Order Comment: PUBLICITY EXPERT.AT [facility] ORDERED CMP,CRP,AND LDH.INTERNAL ORDERS FROM ANURADHA AND Performed By: #### L 501.3620, L501.9520, L504.2610, L500.2500, L503.6550, L501.6710, L500.3400, L503.6030 ####[facility] [address] [place], [address] Bilirubin [Mass/Vol] 0.44 mg/dL Normal 0.00-1.30 [facility] Comment on above: Order Comment: PUBLICITY EXPERT.AT [facility] ORDERED CMP,CRP,AND LDH.INTERNAL ORDERS FROM ANURADHA AND Performed By: #### L 501.3620, L501.9520, L504.2610, L500.2500, L503.6550, L501.6710, L500.3400, L503.6030 ####[facility] [address] [place], [address] Bilirubin.direct [Mass/Vol] 0.19 mg/dL Normal 0.00-0.[address] [facility] Comment on above: Order Comment: PUBLICITY EXPERT.AT [facility] ORDERED CMP,CRP,AND LDH.INTERNAL ORDERS FROM ANURADHA AND Performed By: #### L 501.3620, L501.9520, L504.2610, L500.2500, L503.6550, L501.6710, L500.3400, L503.6030 ####[facility] [address] [place], [address] Globulin (S) [Mass/Vol] 2.4 g/dL Normal 2.2-4.2 [facility] Comment on above: Order Comment: PUBLICITY EXPERT.AT [facility] ORDERED CMP,CRP,AND LDH.INTERNAL ORDERS FROM ANURADHA AND Performed By: #### L 501.3620, L501.9520, L504.2610, L500.2500, L503.6550, L501.6710, L500.3400, L503.6030 ####[facility] [address] [place], [address] T PROT 5.7 g/dL Low 5.9-8.[address] [facility] Comment on above: Order Comment: PUBLICITY EXPERT.AT [facility] ORDERED CMP,CRP,AND LDH.INTERNAL ORDERS FROM ANURADHA AND Performed By: #### L 501.3620, L501.9520, L504.2610, L500.2500, L503.6550, L501.6710, L500.3400, L503.6030 ####[facility] [address] [place], [address] ALB Normal 3.5-5.[address] [facility] Comment on above: Result Comment: ADDE D TO C439 Performed By: #### L 300.3900, L3400.0700, L3100.5450, L3100.0300, L500.3400, L800.1280, L803.2200, L3410.2920, L3100.0460, L3200.1400, L3300.1200 ####[facility] [address] [place], [address] ALK PHOS Normal 35-[address] [facility] Comment on above: Result Comment: ADDE D TO C439 Performed By: #### L 300.3900, L3400.0700, L3100.5450, L3100.0300, L500.3400, L800.1280, L803.2200, L3410.2920, L3100.0460, L3200.1400, L3300.1200 ####[facility] [address] [place], [address] ALT Normal <=[address] [facility] Comment on above: Result Comment: ADDE D TO C439 Performed By: #### L 300.3900, L3400.0700, L3100.5450, L3100.0300, L500.3400, L800.1280, L803.2200, L3410.2920, L3100.0460, L3200.1400, L3300.1200 ####[facility] [address] [place], [address] AST Normal <=[address] [facility] Comment on above: Result Comment: ADDE D TO C439 Performed By: #### L 300.3900, L3400.0700, L3100.5450, L3100.0300, L500.3400, L800.1280, L803.2200, L3410.2920, L3100.0460, L3200.1400, L3300.1200 ####[facility] [address] [place], [address] D BILI Normal 0.00-0.[address] [facility] Comment on above: Result Comment: ADDE D TO C439 Performed By: #### L 300.3900, L3400.0700, L3100.5450, L3100.0300, L500.3400, L800.1280, L803.2200, L3410.2920, L3100.0460, L3200.1400, L3300.1200 ####[facility] [address] [place], [address] T BILI Normal 0.00-1.[address] [facility] Comment on above: Result Comment: ADDE D TO C439 Performed By: #### L 300.3900, L3400.0700, L3100.5450, L3100.0300, L500.3400, L800.1280, L803.2200, L3410.2920, L3100.0460, L3200.1400, L3300.1200 ####[facility] [address] [place], [address] T PROT Normal 5.9-8.[address] [facility] Comment on above: Result Comment: ADDE D TO C439 Performed By: #### L 300.3900, L3400.0700, L3100.5450, L3100.0300, L500.3400, L800.1280, L803.2200, L3410.2920, L3100.0460, L3200.1400, L3300.1200 ####[facility] [address] [place], [place], [phone] No Panel InformationOrdered By: Christi Shore on 10-23-2024 Unsaturated Iron Binding Capacity 200 ug/dL Low 228-[address] [facility] 472 U/L High <[address] [facility] 200 ug/dL Low 228-[address] [facility] Potassium measurement (mass/ volume)Ordered By: Christi Shore on 10-23-2024 Potassium (Unsp spec) [Mass/Vol] 4.6 mmol/L 3.3-5.[address] [facility] Prothrombin Time w/INRon INR Coag (PPP) [Relative time] 1.1 {INR} Normal [facility] Comment on above: Performed By: #### L 300.3900, L3400.0700, L3100.5450, L3100.0300, L500.3400, L800.1280, L803.2200, L3410.2920, L3100.0460, L3200.1400, L3300.1200 ####[facility] [address] [place], [address] PT Coag (PPP) [Time] 14.2 s Normal 11.7-14.9 [facility] Comment on above: Performed By: #### L 300.3900, L3400.0700, L3100.5450, L3100.0300, L500.3400, L800.1280, L803.2200, L3410.2920, L3100.0460, L3200.1400, L3300.1200 ####[facility] [address] [place], [place], [phone] Prothrombin timeOrdered By: Christi Shore on 10-23-2024 PT Coag (PPP) [Time] 14.2 s 11.7-14.9 [facility] Serum DNA double strand anti body assay (units/volume)Ordered By: Christi Shore on 10-23-2024 DNA double strand Ab Qn (S) [facility] Comment on above: Test not performed Serum Scl-70 antibody assay (units/volume)Ordered By: Christi Shore on 10-23-2024 SCL-70 extractable nuclear Ab Qn (S) [facility] Comment on above: Test not performed Serum classic neutrophil cyt oplasmic antibody assay (units/volume)Ordered By: Christi Shore on 10-23-2024 Neutrophil cytoplasmic Ab.classic Qn (S) <1:20 titer Neg:<1:[address] [facility] Serum creatinine measurement (mass/volume)Ordered By: Christi Shore on 10-23-2024 Creatinine [Mass/Vol] 0.46 mg/dL Low 0.70-1.20 [facility] Serum globulin measurementOr dered By: Christi Shore on 10-23-2024 Globulin (S) [Mass/Vol] 2.4 g/dL 2.2-4.2 [facility] Serum glucose measurement (m ass/volume)Ordered By: Christi Shore on 10-23-2024 Glucose [Mass/Vol] 131 mg/dL High 70-99 [facility] Serum hepatitis B virus core antibody detectionOrdered By: Christi Shore on 10-23-2024 HBV core Ab Ql (S) Negative Negative [facility] Serum mitochondria antibody detectionOrdered By: Christi Shore on 10-23-2024 Mitochondria Ab Ql (S) <20.0 Units 0.0-20.0 [facility] Comment on above: Negative 0.0 - 20.0 Equivocal 20.1 - 24.9 Positive >24.9Mitochondrial (M2) Antibodies are found in 90-96% ofpatients with primary biliary cirrhosis. Serum or plasma C reactive p rotein measurement (mass/volume)Ordered By: Christi Shore on 10-23-2024 CRP [Mass/Vol] 8.85 mg/L High 0.0-3.[address] [facility] Serum or plasma IgA measurem ent (mass/volume)Ordered By: Christi Shore on 10-23-2024 IgA [Mass/Vol] 248 mg/dL 87-[address] [facility] Serum or plasma actin IgG an tibody assay (units/volume)Ordered By: Christi Shore on 10-23-2024 Actin IgG Qn 22 Units High 0-[address] [facility] Comment on above: Negative 0 - 19 Weak positive 20 - 30 Moderate to strong positive >30 Actin Antibodies are found in 52-85% of patients with autoimmune hepatitis or chronic active hepatitis and in 22% of patients with primary biliary cirrhosis. Serum or plasma alanine reynoso otransferase (ALT) measurementOrdered By: Christi Shore on 10-23-2024 ALT [Catalytic activity/Vol] 415 U/L High <[address] [facility] Serum or plasma albumin anish urement (mass/volume)Ordered By: Christi Shore on 10-23-2024 Albumin [Mass/Vol] 3.3 g/dL Low 3.5-5.0 [facility] Serum or plasma alkaline brian sphatase measurementOrdered By: Christi Shore on 10-23-2024 ALP [Catalytic activity/Vol] 54 U/L 35-[address] [facility] Serum or plasma calcium anish urement (mass/volume)Ordered By: Christi Shore on 10-23-2024 Calcium [Mass/Vol] 9.3 mg/dL 7.6-11.0 [facility] Serum or plasma creatine kin ase activityOrdered By: Christi Shore on 10-23-2024 CK [Catalytic activity/Vol] 5826 U/L High 24-[address] [facility] Serum or plasma ferritin alex surement (mass/volume)Ordered By: Christi Shore on 10-23-2024 Ferritin [Mass/Vol] 280 ng/mL 22-378 [facility] Serum or plasma iron saturat ion measurement (mass fraction)Ordered By: Christi Shore on 10-23-2024 Iron saturation [Mass fraction] 24.0 % 13-[address] [facility] Serum or plasma urea nitroge n measurement (mass/volume)Ordered By: Christi Shore on 10-23-2024 Urea nitrogen [Mass/Vol] 13 mg/dL 4-[address] [facility] Serum perinuclear neutrophil cytoplasmic antibody titer by immunofluorescenceOrdered By: Christi Shore on 10-23-2024 Neutrophil cytoplasmic Ab.perinuclear IF (S) [Titer] <1:20 titer Neg:<1:[address] [facility] Comment on above: The presence of posi tive fluorescence exhibiting P-ANCA orC-ANCA patterns alone is not specific for the diagnosis ofWegener's Granulomatosis (WG) or microscopic polyangiitis.Decisions about treatment should not be based solely onANCA IFA results. The [employer] ANCA [employer] Consensusrecommends follow up testing of positive sera with both MD-3 and MPO-ANCA enzyme immunoassays. As many as 5% serumsamples are positive only by EIA. Ref. AM J Clin [id number];111:507-513. Serum tissue transglutaminas e (tTG) IgA antibody assay (units/volume)Ordered By: Christi Shore on 10-23-2024 tTG IgA Qn (S) <2 U/mL 0-[address] [facility] Comment on above: Negative 0 - 3 Weak Positive 4 - 10 Positive >10 Tissue Transglutaminase (tTG) has been identified as the endomysial antigen. Studies have demonstr- ated that endomysial IgA antibodies have over 99% specificity for gluten sensitive enteropathy. Sodium levelOrdered By: Moni Shore on 10-23-2024 Sodium [Moles/Vol] 134 mmol/L 133-145 [facility] TSH DL <= 0.005 mIU/L QnOrde red By: Christi Shore on 10-23-2024 TSH Qn 11.200 uIU/mL High 0.300-4.[address] [facility] Thyroid Stim Hormone (TSH)on 10-23-2024 TSH 11.200 uIU/mL High 0.300-4.[address] [facility] Comment on above: Order Comment: [facility] ORDERED CMP,CRP,AND LDH.INTERNAL ORDERS FROM ANURADHA AND Performed By: #### L 501.3620, L501.9520, L504.2610, L500.2500, L503.6550, L501.6710, L500.3400, L503.6030 ####[facility] [address] [place], [address] Total proteinOrdered By: Cele Shore on 10-23-2024 Protein [Mass/Vol] 5.7 g/dL Low 5.9-8.4 [facility] Gastroenterology Visit Repor ton 10-17-2024 Gastroenterology Visit Report Normal [facility] Absolute lymphocyte countOrd ered By: Suzanna Jordan on 10-16-2024 Lymphocytes Auto (Unsp spec) [#/Vol] 0.75 10*3/uL Low 0.83-4.[address] [facility] Absolute neutrophil countOrd ered By: Suzanna Jordan on 10-16-2024 Neutrophils (Bld) [#/Vol] 4.4 10*3/uL 2.0-7.[address] [facility] Anion gap in Serum or Plasma Ordered By: Suzanna Jordan on 10-16-2024 Anion gap [Moles/Vol] 10 mmol/L 5-15 [facility] Automated lymphocyte count a s percentage of total leukocytesOrdered By: Suzanna Jordan on 10-16-2024 Lymphocytes/100 WBC Auto (Unsp spec) 12.5 % Low 19-[address] [facility] BUN/creatinine ratioOrdered By: Suzanna Jordan on 10-16-2024 Urea nitrogen/Creatinine [Mass ratio] 18.2 mg/mg 10-[address] [facility] Basophil percentageOrdered B y: Suzanna Jordan on 10-16-2024 Basophils/100 WBC (Bld) 0.7 % 0-1 [facility] Bilirubin, totalOrdered By: Suzanna Jordan on 10-16-2024 Bilirubin [Mass/Vol] 0.55 mg/dL 0.00-1.30 [facility] CBC W/Diff, Automatedon 09-30 Absolute Lymph 0.75 X10 3/uL Low 0.83-4.[address] [facility] Comment on above: Performed By: #### L 503.7505, L500.4050, L100.0100 ####[facility] [address] [place], [address] Absolute Neut 4.4 X10 3/uL Normal 2.0-7.[address] [facility] Comment on above: Performed By: #### L 503.7505, L500.4050, L100.0100 ####[facility] [address] [place], [address] Basophils/100 WBC (Bld) 0.7 % Normal 0-1 [facility] Comment on above: Performed By: #### L 503.7505, L500.4050, L100.0100 ####[facility] [address] [place], [address] Eosinophils/100 WBC (Bld) 7.2 % High 0-[address] [facility] Comment on above: Performed By: #### L 503.7505, L500.4050, L100.0100 ####[facility] [address] [place], [address] Erythrocyte distribution width (RBC) [Ratio] 15.7 % High 11.6-14.[address] [facility] Comment on above: Performed By: #### L 503.7505, L500.4050, L100.0100 ####[facility] [address] [place], [address] Hematocrit (Bld) [Volume fraction] 41.7 % Normal 37-[address] [facility] Comment on above: Performed By: #### L 503.7505, L500.4050, L100.0100 ####[facility] [address] [place], [address] Hemoglobin (Bld) [Mass/Vol] 14.0 g/dL Normal 12.0-15.[address] [facility] Comment on above: Performed By: #### L 503.7505, L500.4050, L100.0100 ####[facility] [address] [place], [address] IG% 0.200 Normal 0.0-0.[address] [facility] Comment on above: Result Comment: IG% - Immature Granulocytes (promyelocytes, myelocytes andmetamyelocytes) > 1% indicates that a LEFT SHIFT is Present. Performed By: #### L 503.7505, L500.4050, L100.0100 ####[facility] [address] [place], [address] Lymphocytes/100 WBC (Bld) 12.5 % Low 19-[address] [facility] Comment on above: Performed By: #### L 503.7505, L500.4050, L100.0100 ####[facility] [address] [place], [address] MCH (RBC) [Entitic mass] 31.3 pg Normal 27.0-32.[address] [facility] Comment on above: Performed By: #### L 503.7505, L500.4050, L100.0100 ####[facility] [address] [place], [address] MCHC (RBC) [Mass/Vol] 33.6 g/dL Normal 32-36 [facility] Comment on above: Performed By: #### L 503.7505, L500.4050, L100.0100 ####[facility] [address] [place], [address] MCV (RBC) [Entitic vol] 93.1 fL Normal 81-99 [facility] Comment on above: Performed By: #### L 503.7505, L500.4050, L100.0100 ####[facility] [address] [place], [address] Monocytes/100 WBC (Bld) 5.5 % Normal 0-10 [facility] Comment on above: Performed By: #### L 503.7505, L500.4050, L100.0100 ####[facility] [address] [place], [address] Neutrophils/100 WBC (Bld) 73.9 % High 47-[address] [facility] Comment on above: Performed By: #### L 503.7505, L500.4050, L100.0100 ####[facility] [address] [place], [address] Nucleated RBC (Bld) [#/Vol] 0 10*3/uL Normal 0-[address] [facility] Comment on above: Performed By: #### L 503.7505, L500.4050, L100.0100 ####[facility] [address] [place], [address] Platelet mean volume (Bld) [Entitic vol] 11.3 fL Normal 6.2-12.[address] [facility] Comment on above: Performed By: #### L 503.7505, L500.4050, L100.0100 ####[facility] [address] [place], [address] Platelets (Bld) [#/Vol] 264 10*3/uL Normal 150-[address] [facility] Comment on above: Performed By: #### L 503.7505, L500.4050, L100.0100 ####[facility] [address] [place], [address] RBC (Bld) [#/Vol] 4.48 10*6/uL Normal 4.2-5.4 [facility] Comment on above: Performed By: #### L 503.7505, L500.4050, L100.0100 ####[facility] [address] [place], [address] RDW SD 54.0 fl High 35.1-43.[address] [facility] Comment on above: Performed By: #### L 503.7505, L500.4050, L100.0100 ####[facility] [address] [place], [address] WBC (Bld) [#/Vol] 6.0 10*3/uL Normal 4.4-11.0 [facility] Comment on above: Performed By: #### L 503.7505, L500.4050, L100.0100 ####[facility] [address] [place], [address] Carbon dioxide, total [Moles /volume] in Central venous bloodOrdered By: Suzanna Jordan on 10-16-2024 CO2 [Moles/Vol] 25.8 mmol/L 21.0-32.[address] [facility] Chest PA and Lateralon 10-16 Chest PA and Lateral Normal [facility] Chloride assayOrdered By: Rose Jordan on 10-16-2024 Chloride [Moles/Vol] 102 mmol/L 98-108 [facility] Comprehensive Metabolic Prof ilon 10-16-2024 Albumin [Mass/Vol] 3.1 g/dL Low 3.5-5.0 [facility] Comment on above: Performed By: #### L 503.7505, L500.4050, L100.0100 ####[facility] [address] [place], [address] Albumin/Globulin [Mass ratio] 1.2 {ratio} Normal 0.9-2.[address] [facility] Comment on above: Performed By: #### L 503.7505, L500.4050, L100.0100 ####[facility] [address] [place], [address] ALK PHOS 54 U/L Normal 35-[address] [facility] Comment on above: Performed By: #### L 503.7505, L500.4050, L100.0100 ####[facility] [address] [place], [address] ALT [Catalytic activity/Vol] 390 U/L High <=[address] [facility] Comment on above: Performed By: #### L 503.7505, L500.4050, L100.0100 ####[facility] [address] [place], [address] AST [Catalytic activity/Vol] 438 U/L High <=[address] [facility] Comment on above: Performed By: #### L 503.7505, L500.4050, L100.0100 ####[facility] [address] [place], [address] Bilirubin [Mass/Vol] 0.55 mg/dL Normal 0.00-1.30 [facility] Comment on above: Performed By: #### L 503.7505, L500.4050, L100.0100 ####[facility] [address] [place], [address] BUN/CRE 18.2 RATIO Normal 10-[address] [facility] Comment on above: Performed By: #### L 503.7505, L500.4050, L100.0100 ####[facility] [address] [place], [address] Calcium [Mass/Vol] 9.1 mg/dL Normal 7.6-11.0 [facility] Comment on above: Performed By: #### L 503.7505, L500.4050, L100.0100 ####[facility] [address] [place], [address] Chloride [Moles/Vol] 102 mmol/L Normal 98-108 [facility] Comment on above: Performed By: #### L 503.7505, L500.4050, L100.0100 ####[facility] [address] [place], [address] CO2 [Moles/Vol] 25.8 mmol/L Normal 21.0-32.[address] [facility] Comment on above: Performed By: #### L 503.7505, L500.4050, L100.0100 ####[facility] [address] [place], [address] Creatinine [Mass/Vol] 0.44 mg/dL Low 0.70-1.20 [facility] Comment on above: Performed By: #### L 503.7505, L500.4050, L100.0100 ####[facility] [address] [place], [address] ECRCL 171.85 ml/min Normal 50-[address] [facility] Comment on above: Performed By: #### L 503.7505, L500.4050, L100.0100 ####[facility] [address] [place], [address] GAP 10 Normal 5-[address] [facility] Comment on above: Performed By: #### L 503.7505, L500.4050, L100.0100 ####[facility] [address] [place], [address] GFR/1.73 sq M.predicted among non-blacks MDRD (S/P/Bld) [Vol rate/Area] 114 mL/min/{1.73_m2} Normal >[address] [facility] Comment on above: Result Comment: mL/m in/1.73m2 CKD-EPI Creatinine Equation (2020) Performed By: #### L 503.7505, L500.4050, L100.0100 ####[facility] [address] [place], [address] Globulin (S) [Mass/Vol] 2.5 g/dL Normal 2.2-4.2 [facility] Comment on above: Performed By: #### L 503.7505, L500.4050, L100.0100 ####[facility] [address] [place], [address] Glucose [Mass/Vol] 114 mg/dL High 70-99 [facility] Comment on above: Performed By: #### L 503.7505, L500.4050, L100.0100 ####[facility] [address] [place], [address] Potassium [Moles/Vol] 3.8 mmol/L Normal 3.3-5.1 [facility] Comment on above: Performed By: #### L 503.7505, L500.4050, L100.0100 ####[facility] [address] [place], [address] Sodium [Moles/Vol] 138 mmol/L Normal 133-145 [facility] Comment on above: Performed By: #### L 503.7505, L500.4050, L100.0100 ####[facility] [address] [place], [address] T PROT 5.5 g/dL Low 5.9-8.[address] [facility] Comment on above: Performed By: #### L 503.7505, L500.4050, L100.0100 ####[facility] [address] [place], [address] Urea nitrogen [Mass/Vol] 8 mg/dL Normal 4-[address] [facility] Comment on above: Performed By: #### L 503.7505, L500.4050, L100.0100 ####[facility] [address] [place], [address] Emergency Department Summary on 10-16-2024 Emergency Department Summary Normal [facility] Eosinophil percentageOrdered By: Suzanna Jordan on 10-16-2024 Eosinophils/100 WBC (Bld) 7.2 % High 0-[address] [facility] Erythrocyte distribution wid th ratioOrdered By: Suzanna Jordan on 10-16-2024 Erythrocyte distribution width (RBC) [Ratio] 15.7 % High 11.6-14.[address] [facility] Erythrocyte distribution wid th standard deviationOrdered By: Suzanna Jordan on 10-16-2024 Erythrocyte distribution width (RBC) [Ratio] 54.0 fl High 35.1-43.[address] [facility] Glomerular filtration rate ( GFR) estimation/1.73 sq m using serum, plasma, or whole bOrdered By: Suzanna Jordan on 10-16-2024 GFR/1.73 sq M.predicted among non-blacks MDRD (S/P/Bld) [Vol rate/Area] 114 mL/min/{1.73_m2} >[address] [facility] Comment on above: mL/min/1.73m2 CKD-EP I Creatinine Equation (2020) Hematocrit Auto (Bld) [Volum e fraction]Ordered By: Suzanna Jordan on 10-16-2024 Hematocrit (Bld) [Volume fraction] 41.7 % 37-[address] [facility] Hemoglobin measurementOrdere d By: Suzanna Jordan on 10-16-2024 Hemoglobin (Bld) [Mass/Vol] 14.0 g/dL 12.0-15.[address] [facility] Immature granulocytes/100 WB C Auto (Bld)Ordered By: Suzanna Jordan on 10-16-2024 Immature granulocytes/100 WBC (Bld) 0.200 % 0.0-0.[address] [facility] Comment on above: IG% - Immature Granu locytes (promyelocytes, myelocytes and metamyelocytes) > 1% indicates that a LEFT SHIFT is Present. L503.7505on 10-16-2024 Natriuretic peptide B (Bld) [Mass/Vol] 74 pg/mL Normal <=[address] [facility] Comment on above: Result Comment: Hear t Failure Unlikely: < 300 pg/mLHeart Failure Likely< 50 Years: > 450 pg/mL50-75 Years: > 900 pg/mL>75 Years: > 1800 pg/mL Performed By: #### L 503.7505, L500.4050, L100.0100 ####[facility] [address] [place], [address] Laboratory - Chemistry and C hemistry - challengeOrdered By: Suzanna Jordan on 10-16-2024 AST [Catalytic activity/Vol] 438 U/L High <[address] [facility] MCV (mean corpuscular volume ) determinationOrdered By: Suzanna Jordan on 10-16-2024 MCV (RBC) [Entitic vol] 93.1 fL 81-99 [facility] Mean corpuscular hemoglobin (MCH) determinationOrdered By: Suzanna Jordan on 10-16-2024 MCH (RBC) [Entitic mass] 31.3 pg 27.0-32.[address] [facility] Mean corpuscular hemoglobin concentration (MCHC) determinationOrdered By: Suzanna Jordan on 10-16-2024 MCHC (RBC) [Mass/Vol] 33.6 g/dL 32-36 [facility] Mean platelet volume determi nationOrdered By: Suzanna Jordan on 10-16-2024 Platelet mean volume (Bld) [Entitic vol] 11.3 fL 6.2-12.[address] [facility] Monocyte percentageOrdered B y: Suzanna Jordan on 10-16-2024 Monocytes/100 WBC (Bld) 5.5 % 0-10 [facility] Natriuretic peptide.B prohor jane N-Terminal [Mass/volume] in Serum or PlasmaOrdered By: Suzanna Jordan on 10-16-2024 Natriuretic peptide.B prohormone N-Terminal [Mass/Vol] 74 pg/mL <[address] [facility] Comment on above: Heart Failure Unlike ly: < 300 pg/mLHeart Failure Likely< 50 Years: > 450 pg/mL50-75 Years: > 900 pg/mL>75 Years: > 1800 pg/mL Neutrophil percentageOrdered By: Suzanna Jordan on 10-16-2024 Neutrophils/100 WBC (Bld) 73.9 % High 47-[address] [facility] No Panel InformationOrdered By: Suzanna Jordan on 10-16-2024 438 U/L High <[address] [facility] Nucleated red blood cell per centageOrdered By: Suzanna Jordan on 10-16-2024 Nucleated RBC/100 WBC (Bld) [Ratio] 0 % 0-[address] [facility] Platelet countOrdered By: Rose Jordan on 10-16-2024 Platelets (Bld) [#/Vol] 264 10*3/uL 150-[address] [facility] Potassium measurement (mass/ volume)Ordered By: Suzanna Jordan on 10-16-2024 Potassium (Unsp spec) [Mass/Vol] 3.8 mmol/L 3.3-5.[address] [facility] RBC Auto (Bld) [#/Vol]Ordere d By: Suzanna Jordan on 10-16-2024 RBC (Bld) [#/Vol] 4.48 10*6/uL 4.2-5.4 [facility] Serum creatinine measurement (mass/volume)Ordered By: Suzanna Jordan on 10-16-2024 Creatinine [Mass/Vol] 0.44 mg/dL Low 0.70-1.20 [facility] Serum globulin measurementOr dered By: Suzanna Jordan on 10-16-2024 Globulin (S) [Mass/Vol] 2.5 g/dL 2.2-4.2 [facility] Serum glucose measurement (m ass/volume)Ordered By: Suzanna Jordan on 10-16-2024 Glucose [Mass/Vol] 114 mg/dL High 70-99 [facility] Serum or plasma alanine reynoso otransferase (ALT) measurementOrdered By: Suzanna Jordan on 10-16-2024 ALT [Catalytic activity/Vol] 390 U/L High <[address] [facility] Serum or plasma albumin anish urement (mass/volume)Ordered By: Suzanna Jordan on 10-16-2024 Albumin [Mass/Vol] 3.1 g/dL Low 3.5-5.0 [facility] Serum or plasma albumin/glob ulin mass ratioOrdered By: Suzannaivan Jordan on 10-16-2024 Albumin/Globulin [Mass ratio] 1.2 {ratio} 0.9-2.[address] [facility] Serum or plasma alkaline brian sphatase measurementOrdered By: Suzannaivan Jordan on 10-16-2024 ALP [Catalytic activity/Vol] 54 U/L 35-[address] [facility] Serum or plasma calcium anish urement (mass/volume)Ordered By: Suzanna Jordan on 10-16-2024 Calcium [Mass/Vol] 9.1 mg/dL 7.6-11.0 [facility] Serum or plasma urea nitroge n measurement (mass/volume)Ordered By: Suzanna Jordan on 10-16-2024 Urea nitrogen [Mass/Vol] 8 mg/dL 4-[address] [facility] Sodium levelOrdered By: Suzannaivan Jordan on 10-16-2024 Sodium [Moles/Vol] 138 mmol/L 133-145 [facility] Total proteinOrdered By: Dee Dee flores Nikki on 10-16-2024 Protein [Mass/Vol] 5.5 g/dL Low 5.9-8.4 [facility] White blood cell (WBC) count Ordered By: Suzannaivan Jordan on 10-16-2024 WBC (Bld) [#/Vol] 6.0 10*3/uL 4.4-11.0 [facility] CPK Isoenzyme (Ref. Lab)on 0 10-15-2024 CK-BB 0 Normal [address] [facility] Comment on above: Result Comment: Perf ormed at: [facility] - [facility] [address] [id number] Director: Kevin Prasad PhD, Phone: [phone] Performed By: #### L 3900.2850, L500.3400, L504.2610, L501.3620, L503.7505, L500.2500 ####[facility] [address] [place], [address] CK-MM 76 Low 97-[address] [facility] Comment on above: Performed By: #### L 3900.2850, L500.3400, L504.2610, L501.3620, L503.7505, L500.2500 ####[facility] [address] [place], [address] CK.MB [Mass/Vol] 7 ng/mL High 0-[address] [facility] Comment on above: Performed By: #### L 3900.2850, L500.3400, L504.2610, L501.3620, L503.7505, L500.2500 ####[facility] [address] [place], [address] CPK,TOTAL,SERUM 5834 U/L High 32-[address] [facility] Comment on above: Result Comment: Resu lts confirmed ondilution. Performed By: #### L 3900.2850, L500.3400, L504.2610, L501.3620, L503.7505, L500.2500 ####[facility] [address] [place], [place], [phone] Macro I 17 High Not Observed [facility] Comment on above: Result Comment: Macr o [...] CK Type 1. Performed By: #### L 3900.2850, L500.3400, L504.2610, L501.3620, L503.7505, L500.2500 ####[facility] [address] [place], [address] Macro II 0 Normal Not Observed [facility] Comment on above: Performed By: #### L 3900.2850, L500.3400, L504.2610, L501.3620, L503.7505, L500.2500 ####[facility] [address] [place], [address] Anion gap in Serum or Plasma Ordered By: Mackenzie Hernandez on 10-13-2024 Anion gap [Moles/Vol] 11 mmol/L 5-15 [facility] BUN/creatinine ratioOrdered By: Mackenzie Hernandez on 10-13-2024 Urea nitrogen/Creatinine [Mass ratio] 15.6 mg/mg 10-[address] [facility] Bilirubin, totalOrdered By: Mackenzie Hernandez on 10-13-2024 Bilirubin [Mass/Vol] 0.61 mg/dL 0.00-1.30 [facility] CPK Total, Creatine Kinaseon 10-13-2024 CPK TOTAL 5541 U/L High 24-[address] [facility] Comment on above: Performed By: #### L 500.4050, L501.3620, L504.2610 ####[facility] [address] [place], [address] Carbon dioxide, total [Moles /volume] in Central venous bloodOrdered By: Mackenzie Hernandez on 10-13-2024 CO2 [Moles/Vol] 24.6 mmol/L 21.0-32.[address] [facility] Chloride assayOrdered By: Wiliam Hernandez on 10-13-2024 Chloride [Moles/Vol] 104 mmol/L 98-108 [facility] Comprehensive Metabolic Prof ilon 10-13-2024 Albumin [Mass/Vol] 3.0 g/dL Low 3.5-5.0 [facility] Comment on above: Performed By: #### L 500.4050, L501.3620, L504.2610 ####[facility] [address] [place], [address] Albumin/Globulin [Mass ratio] 1.2 {ratio} Normal 0.9-2.[address] [facility] Comment on above: Performed By: #### L 500.4050, L501.3620, L504.2610 ####[facility] [address] [place], [address] ALK PHOS 58 U/L Normal 35-[address] [facility] Comment on above: Performed By: #### L 500.4050, L501.3620, L504.2610 ####[facility] [address] [place], [address] ALT [Catalytic activity/Vol] 416 U/L High <=[address] [facility] Comment on above: Performed By: #### L 500.4050, L501.3620, L504.2610 ####[facility] [address] [place], [address] AST [Catalytic activity/Vol] 432 U/L High <=[address] [facility] Comment on above: Performed By: #### L 500.4050, L501.3620, L504.2610 ####[facility] [address] [place], [address] Bilirubin [Mass/Vol] 0.61 mg/dL Normal 0.00-1.30 [facility] Comment on above: Performed By: #### L 500.4050, L501.3620, L504.2610 ####[facility] [address] [place], [address] BUN/CRE 15.6 RATIO Normal 10-[address] [facility] Comment on above: Performed By: #### L 500.4050, L501.3620, L504.2610 ####[facility] [address] [place], [address] Calcium [Mass/Vol] 8.8 mg/dL Normal 7.6-11.0 [facility] Comment on above: Performed By: #### L 500.4050, L501.3620, L504.2610 ####[facility] [address] [place], [address] Chloride [Moles/Vol] 104 mmol/L Normal 98-108 [facility] Comment on above: Performed By: #### L 500.4050, L501.3620, L504.2610 ####[facility] [address] [place], [address] CO2 [Moles/Vol] 24.6 mmol/L Normal 21.0-32.[address] [facility] Comment on above: Performed By: #### L 500.4050, L501.3620, L504.2610 ####[facility] [address] [place], [address] Creatinine [Mass/Vol] 0.48 mg/dL Low 0.70-1.20 [facility] Comment on above: Performed By: #### L 500.4050, L501.3620, L504.2610 ####[facility] [address] [place], [address] GAP 11 Normal 5-[address] [facility] Comment on above: Performed By: #### L 500.4050, L501.3620, L504.2610 ####[facility] [address] [place], [address] GFR/1.73 sq M.predicted among non-blacks MDRD (S/P/Bld) [Vol rate/Area] 112 mL/min/{1.73_m2} Normal >[address] [facility] Comment on above: Result Comment: mL/m in/1.73m2 CKD-EPI Creatinine Equation (2020) Performed By: #### L 500.4050, L501.3620, L504.2610 ####[facility] [address] [place], [address] Globulin (S) [Mass/Vol] 2.6 g/dL Normal 2.2-4.2 [facility] Comment on above: Performed By: #### L 500.4050, L501.3620, L504.2610 ####[facility] [address] [place], [address] Glucose [Mass/Vol] 147 mg/dL High 70-99 [facility] Comment on above: Performed By: #### L 500.4050, L501.3620, L504.2610 ####[facility] [address] [place], [address] Potassium [Moles/Vol] 3.5 mmol/L Normal 3.3-5.1 [facility] Comment on above: Performed By: #### L 500.4050, L501.3620, L504.2610 ####[facility] [address] [place], [address] Sodium [Moles/Vol] 140 mmol/L Normal 133-145 [facility] Comment on above: Performed By: #### L 500.4050, L501.3620, L504.2610 ####[facility] [address] [place], [address] T PROT 5.5 g/dL Low 5.9-8.[address] [facility] Comment on above: Performed By: #### L 500.4050, L501.3620, L504.2610 ####[facility] [address] [place], [address] Urea nitrogen [Mass/Vol] 7 mg/dL Normal 4-[address] [facility] Comment on above: Performed By: #### L 500.4050, L501.3620, L504.2610 ####[facility] [address] [place], [address] Glomerular filtration rate ( GFR) estimation/1.73 sq m using serum, plasma, or whole bOrdered By: Mackenzie Hernandez on 10-13-2024 GFR/1.73 sq M.predicted among non-blacks MDRD (S/P/Bld) [Vol rate/Area] 112 mL/min/{1.73_m2} >[address] [facility] Comment on above: mL/min/1.73m2 CKD-EP I Creatinine Equation (2020) LDHon 10-13-2024 LDH 1301 U/L High 84-[address] [facility] Comment on above: Order Comment: 1 Performed By: #### L 500.4050, L501.3620, L504.2610 ####[facility] [address] [place], [place], [id number] Laboratory - Chemistry and C hemistry - challengeOrdered By: Mackenzie Hernandez on 10-13-2024 AST [Catalytic activity/Vol] 432 U/L High <[address] [facility] Lactate dehydrogenase (LDH) measurementOrdered By: Mackenzie Hernandez on 10-13-2024 LDH [Catalytic activity/Vol] 1301 U/L High 84-[address] [facility] No Panel InformationOrdered By: Mackenzie Hernandez on 10-13-2024 432 U/L High <[address] [facility] Potassium measurement (mass/ volume)Ordered By: Mackenzie Hernandez on 10-13-2024 Potassium (Unsp spec) [Mass/Vol] 3.5 mmol/L 3.3-5.[address] [facility] Serum creatinine measurement (mass/volume)Ordered By: Mackenzie Hernandez on 10-13-2024 Creatinine [Mass/Vol] 0.48 mg/dL Low 0.70-1.20 [facility] Serum globulin measurementOr dered By: Mackenzie Hernandez on 10-13-2024 Globulin (S) [Mass/Vol] 2.6 g/dL 2.2-4.2 [facility] Serum glucose measurement (m ass/volume)Ordered By: Mackenzie Hernandez on 10-13-2024 Glucose [Mass/Vol] 147 mg/dL High 70-99 [facility] Serum or plasma alanine reynoso otransferase (ALT) measurementOrdered By: Mackenzie Hernandez on 10-13-2024 ALT [Catalytic activity/Vol] 416 U/L High <[address] [facility] Serum or plasma albumin anish urement (mass/volume)Ordered By: Mackenzie Hernandez on 10-13-2024 Albumin [Mass/Vol] 3.0 g/dL Low 3.5-5.0 [facility] Serum or plasma albumin/glob ulin mass ratioOrdered By: Mackenzie Hernandez on 10-13-2024 Albumin/Globulin [Mass ratio] 1.2 {ratio} 0.9-2.[address] [facility] Serum or plasma alkaline brian sphatase measurementOrdered By: Mackenzie Hernandez on 10-13-2024 ALP [Catalytic activity/Vol] 58 U/L 35-[address] [facility] Serum or plasma calcium anish urement (mass/volume)Ordered By: Mackenzie Hernandez on 10-13-2024 Calcium [Mass/Vol] 8.8 mg/dL 7.6-11.0 [facility] Serum or plasma creatine kin ase activityOrdered By: Mackenzie Hernandez on 10-13-2024 CK [Catalytic activity/Vol] 5541 U/L High [facility] Serum or plasma urea nitroge n measurement (mass/volume)Ordered By: Mackenzie Hernandez on 10-13-2024 Urea nitrogen [Mass/Vol] 7 mg/dL 4-[address] [facility] Sodium levelOrdered By: Nicole Hernandez on 10-13-2024 Sodium [Moles/Vol] 140 mmol/L 133-145 [facility] Total proteinOrdered By: Arian Hernandez on 10-13-2024 Protein [Mass/Vol] 5.5 g/dL Low 5.9-8.4 [facility] CPK Total, Creatine Kinaseon 10-11-2024 CPK TOTAL 6231 U/L High [facility] Comment on above: Performed By: #### L 3900.2850, L500.3400, L504.2610, L501.3620, L503.7505, L500.2500 ####[facility] [address] [place], [place], [id number] Anion gap in Serum or Plasma Ordered By: Mackenzie Hernandez on 10-10-2024 Anion gap [Moles/Vol] 11 mmol/L 5-15 [facility] BUN/creatinine ratioOrdered By: Mackenzie Hernandez on 10-10-2024 Urea nitrogen/Creatinine [Mass ratio] 13.1 mg/mg 10-[address] [facility] Basic Metabolic Profile (BMP )on 10-10-2024 BUN/CRE 13.1 RATIO Normal - [facility] Comment on above: Performed By: #### L 3900.2850, L500.3400, L504.2610, L501.3620, L503.7505, L500.2500 ####[facility] [address] [place], [address] Calcium [Mass/Vol] 8.9 mg/dL Normal 7.6-11.0 [facility] Comment on above: Performed By: #### L 3900.2850, L500.3400, L504.2610, L501.3620, L503.7505, L500.2500 ####[facility] [address] [place], [address] Chloride [Moles/Vol] 105 mmol/L Normal 98-108 [facility] Comment on above: Performed By: #### L 3900.2850, L500.3400, L504.2610, L501.3620, L503.7505, L500.2500 ####[facility] [address] [place], [address] CO2 [Moles/Vol] 23.5 mmol/L Normal 21.0-32.[address] [facility] Comment on above: Performed By: #### L 3900.2850, L500.3400, L504.2610, L501.3620, L503.7505, L500.2500 ####[facility] [address] [place], [address] Creatinine [Mass/Vol] 0.45 mg/dL Low 0.70-1.20 [facility] Comment on above: Performed By: #### L 3900.2850, L500.3400, L504.2610, L501.3620, L503.7505, L500.2500 ####[facility] [address] [place], [address] GAP 11 Normal 5-[address] [facility] Comment on above: Performed By: #### L 3900.2850, L500.3400, L504.2610, L501.3620, L503.7505, L500.2500 ####[facility] [address] [place], [address] GFR/1.73 sq M.predicted among non-blacks MDRD (S/P/Bld) [Vol rate/Area] 114 mL/min/{1.73_m2} Normal >[address] [facility] Comment on above: Result Comment: mL/m in/1.73m2 CKD-EPI Creatinine Equation (2020) Performed By: #### L 3900.2850, L500.3400, L504.2610, L501.3620, L503.7505, L500.2500 ####[facility] [address] [place], [address] Glucose [Mass/Vol] 93 mg/dL Normal 70-99 [facility] Comment on above: Performed By: #### L 3900.2850, L500.3400, L504.2610, L501.3620, L503.7505, L500.2500 ####[facility] [address] [place], [address] Potassium [Moles/Vol] 3.5 mmol/L Normal 3.3-5.1 [facility] Comment on above: Performed By: #### L 3900.2850, L500.3400, L504.2610, L501.3620, L503.7505, L500.2500 ####[facility] [address] [place], [place], [address] Sodium [Moles/Vol] 140 mmol/L Normal 133-145 [facility] Comment on above: Performed By: #### L 3900.2850, L500.3400, L504.2610, L501.3620, L503.7505, L500.2500 ####[facility] [address] [place], [place], [address] Urea nitrogen [Mass/Vol] 6 mg/dL Normal 4-[address] [facility] Comment on above: Performed By: #### L 3900.2850, L500.3400, L504.2610, L501.3620, L503.7505, L500.2500 ####[facility] [address] [place], [place], [id number] Bilirubin directOrdered By: Mackenzie Hernandez on 10-10-2024 Bilirubin.direct [Mass/Vol] 0.29 mg/dL 0.00-0.[address] [facility] Bilirubin, totalOrdered By: Mackenzie Hernandez on 10-10-2024 Bilirubin [Mass/Vol] 0.64 mg/dL 0.00-1.30 [facility] Carbon dioxide, total [Moles /volume] in Central venous bloodOrdered By: Mackenzie Hernandez on 10-10-2024 CO2 [Moles/Vol] 23.5 mmol/L 21.0-32.[address] [facility] Chloride assayOrdered By: Wiliam Hernandez on 10-10-2024 Chloride [Moles/Vol] 105 mmol/L 98-108 [facility] Glomerular filtration rate ( GFR) estimation/1.73 sq m using serum, plasma, or whole bOrdered By: Mackenzie Hernandez on 10-10-2024 GFR/1.73 sq M.predicted among non-blacks MDRD (S/P/Bld) [Vol rate/Area] 114 mL/min/{1.73_m2} >[address] [facility] Comment on above: mL/min/1.73m2 CKD-EP I Creatinine Equation (2020) L503.7505on 10-10-2024 Natriuretic peptide B (Bld) [Mass/Vol] 312 pg/mL Normal <=[address] [facility] Comment on above: Result Comment: Hear t Failure Unlikely: < 300 pg/mLHeart Failure Likely< 50 Years: > 450 pg/mL50-75 Years: > 900 pg/mL>75 Years: > 1800 pg/mL Performed By: #### L 3900.2850, L500.3400, L504.2610, L501.3620, L503.7505, L500.2500 ####[facility] [address] [place], [place], [id number] LDHon 10-10-2024 LDH 1317 U/L High 84-[address] [facility] Comment on above: Order Comment: 1 Performed By: #### L 3900.2850, L500.3400, L504.2610, L501.3620, L503.7505, L500.2500 ####[facility] [address] [place], [place], [id number] Laboratory - Chemistry and C hemistry - challengeOrdered By: Mackenzie [facility] 10-[facility]-2024 AST [Catalytic activity/Vol] 478 U/L High <[address] [facility] Lactate dehydrogenase (LDH) measurementOrdered By: Mackenzie [facility] on 10-10-2024 LDH [Catalytic activity/Vol] 1317 U/L High 84-[address] [facility] Liver Profileon 10-10-2024 Albumin [Mass/Vol] 3.0 g/dL Low 3.5-5.0 [facility] Comment on above: Performed By: #### L 3900.2850, L500.3400, L504.2610, L501.3620, L503.7505, L500.2500 ####[facility] [address] [place], [place], [address] ALK PHOS 53 U/L Normal 35-[address] [facility] Comment on above: Performed By: #### L 3900.2850, L500.3400, L504.2610, L501.3620, L503.7505, L500.2500 ####[facility] [address] [place], [address] ALT [Catalytic activity/Vol] 411 U/L High <=[address] [facility] Comment on above: Performed By: #### L 3900.2850, L500.3400, L504.2610, L501.3620, L503.7505, L500.2500 ####[facility] [address] [place], [address] AST [Catalytic activity/Vol] 478 U/L High <=[address] [facility] Comment on above: Performed By: #### L 3900.2850, L500.3400, L504.2610, L501.3620, L503.7505, L500.2500 ####[facility] [address] [place], [address] Bilirubin [Mass/Vol] 0.64 mg/dL Normal 0.00-1.30 [facility] Comment on above: Performed By: #### L 3900.2850, L500.3400, L504.2610, L501.3620, L503.7505, L500.2500 ####[facility] [address] [place], [address] Bilirubin.direct [Mass/Vol] 0.29 mg/dL Normal 0.00-0.[address] [facility] Comment on above: Performed By: #### L 3900.2850, L500.3400, L504.2610, L501.3620, L503.7505, L500.2500 ####[facility] [address] [place], [address] Globulin (S) [Mass/Vol] 2.5 g/dL Normal 2.2-4.2 [facility] Comment on above: Performed By: #### L 3900.2850, L500.3400, L504.2610, L501.3620, L503.7505, L500.2500 ####[facility] [address] [place], [address] T PROT 5.5 g/dL Low 5.9-8.[address] [facility] Comment on above: Performed By: #### L 3900.2850, L500.3400, L504.2610, L501.3620, L503.7505, L500.2500 ####[facility] [address] [place], [address] Natriuretic peptide.B prohor jane N-Terminal [Mass/volume] in Serum or PlasmaOrdered By: Mackenzie Hernandez on 10-10-2024 Natriuretic peptide.B prohormone N-Terminal [Mass/Vol] 312 pg/mL <[address] [facility] Comment on above: Heart Failure Unlike ly: < 300 pg/mLHeart Failure Likely< 50 Years: > 450 pg/mL50-75 Years: > 900 pg/mL>75 Years: > 1800 pg/mL No Panel InformationOrdered By: Mackenzie Hernandez on 10-10-2024 478 U/L High <[address] [facility] Potassium measurement (mass/ volume)Ordered By: Mackenzie Hernandez on 10-10-2024 Potassium (Unsp spec) [Mass/Vol] 3.5 mmol/L 3.3-5.[address] [facility] Serum creatinine measurement (mass/volume)Ordered By: Mackenzie Hernandez on 10-10-2024 Creatinine [Mass/Vol] 0.45 mg/dL Low 0.70-1.20 [facility] Serum globulin measurementOr dered By: Mackenzie Hernandez on 10-10-2024 Globulin (S) [Mass/Vol] 2.5 g/dL 2.2-4.2 [facility] Serum glucose measurement (m ass/volume)Ordered By: Mackenzie Hernandez on 10-10-2024 Glucose [Mass/Vol] 93 mg/dL 70-99 [facility] Serum or plasma alanine reynoso otransferase (ALT) measurementOrdered By: Mackenzie Hernandez on 10-10-2024 ALT [Catalytic activity/Vol] 411 U/L High <[address] [facility] Serum or plasma albumin anish urement (mass/volume)Ordered By: Mackenzie Hernandez on 10-10-2024 Albumin [Mass/Vol] 3.0 g/dL Low 3.5-5.0 [facility] Serum or plasma alkaline brian sphatase measurementOrdered By: Mackenzie Hernandze on 10-10-2024 ALP [Catalytic activity/Vol] 53 U/L 35-[address] [facility] Serum or plasma calcium anish urement (mass/volume)Ordered By: Mackenzie Hernandez on 10-10-2024 Calcium [Mass/Vol] 8.9 mg/dL 7.6-11.0 [facility] Serum or plasma creatine kin ase BB/total creatine kinase enzymatic activity ratio byOrdered By: Mackenzie Hernandez on 10-10-2024 CK.BB Elph [Catalytic fraction] 0 % [address] [facility] Comment on above: Performed at: [address] [id number] Director: Kevin Prasad PhD, Phone: [phone] Serum or plasma creatine kin ase MB/total creatine kinase enzymatic activity ratio byOrdered By: Mackenzie Hernandez on 10-10-2024 CK.MB Elph [Catalytic fraction] 7 % High 0-[address] [facility] Serum or plasma creatine kin ase activityOrdered By: Mackenzie Hernandez on 10-10-2024 CK [Catalytic activity/Vol] 6231 U/L High 24-[address] [facility] Serum or plasma macromolecul ar type 1 creatine kinase/total creatine kinase enzymaticOrdered By: Mackenzie Hernandez on 10-10-2024 CK.macromolecular type 1 [Catalytic fraction] 17 % High Not Observed [facility] Comment on above: Macro CK Type 1 [...] 2 [Catalytic fraction] 0 % Not Observed [facility] Serum or plasma urea nitroge n measurement (mass/volume)Ordered By: Mackenzie Hernandez on 10-10-2024 Urea nitrogen [Mass/Vol] 6 mg/dL 4-[address] [facility] Serum total creatine kinase measurementOrdered By: Mackenzie Hernandez on 10-10-2024 CK [Catalytic activity/Vol] 5834 U/L High 32-[address] [facility] Comment on above: Results confirmed on dilution. Sodium levelOrdered By: Nicole Hernandez on 10-10-2024 Sodium [Moles/Vol] 140 mmol/L 133-145 [facility] Total proteinOrdered By: Arian Hernandez on 10-10-2024 Protein [Mass/Vol] 5.5 g/dL Low 5.9-8.4 [facility] Bilirubin directOrdered By: Leo Leal on 10-08-2024 Bilirubin.direct [Mass/Vol] 0.21 mg/dL 0.00-0.[address] [facility] Bilirubin, totalOrdered By: Leo Leal on 10-08-2024 Bilirubin [Mass/Vol] 0.44 mg/dL 0.00-1.30 [facility] CPK Total, Creatine Kinaseon 10-08-2024 CPK TOTAL 3464 U/L High 24-[address] [facility] Comment on above: Performed By: #### L 501.3620, L500.3400 ####[facility] [address] [place], [place], [id number] Discharge Instructionon Discharge Instruction Normal [facility] Hepatitis Panel Acuteon COMMENT Comment Normal . [facility] Comment on above: Result Comment: Not infected with HCV unless early or acute infection issuspected (which may be delayed in an immunocompromisedindividual), or other evidence exists to indicate HCVinfection.Performed at: [facility] [id number] [place], [place] [id number] Director: Kevin Prasad PhD, Phone: [phone] Performed By: #### L 3000.0375 ####[facility] [address] [place], [place], [address] HEP B CORE,IgM Negative Normal Negative [facility] Comment on above: Performed By: #### L 3000.0375 ####[facility] [address] [place], [place], [address] HEP B SURF AG Negative Normal Negative [facility] Comment on above: Performed By: #### L 3000.0375 ####[facility] [address] [place], [place], [address] HEP C VIRUS AB Non-Reactive Normal Non Reactive [facility] Comment on above: Performed By: #### L 3000.0375 ####[facility] [address] [place], [place], [address] HEPATITIS A-IgM Negative Normal Negative [facility] [facility] Comment on above: Result Comment: A ne gative anti-HAV IgM result suggests no recent orcurrent HAV infection. Performed By: #### L 3000.0375 ####[facility] [address] [place], [place], [id number] Laboratory - Chemistry and C hemistry - challengeOrdered By: Leo Leal on 10-08-2024 AST [Catalytic activity/Vol] 316 U/L High <[address] [facility] Liver Profileon 10-08-2024 Albumin [Mass/Vol] 2.7 g/dL Low 3.5-5.0 [facility] Comment on above: Performed By: #### L 501.3620, L500.3400 ####[facility] [address] [place], [place], [id number] ALK PHOS 47 U/L Normal 35-[address] [facility] Comment on above: Performed By: #### L 501.3620, L500.3400 ####[facility] [address] [place], [address] ALT [Catalytic activity/Vol] 295 U/L High <=[address] [facility] Comment on above: Performed By: #### L 501.3620, L500.3400 ####[facility] [address] [place], [address] AST [Catalytic activity/Vol] 316 U/L High <=[address] [facility] Comment on above: Performed By: #### L 501.3620, L500.3400 ####[facility] [address] [place], [address] Bilirubin [Mass/Vol] 0.44 mg/dL Normal 0.00-1.30 [facility] Comment on above: Performed By: #### L 501.3620, L500.3400 ####[facility] [address] [place], [address] Bilirubin.direct [Mass/Vol] 0.21 mg/dL Normal 0.00-0.[address] [facility] Comment on above: Performed By: #### L 501.3620, L500.3400 ####[facility] [address] [place], [address] Globulin (S) [Mass/Vol] 2.3 g/dL Normal 2.2-4.2 [facility] Comment on above: Performed By: #### L 501.3620, L500.3400 ####[facility] [address] [place], [address] T PROT 5.0 g/dL Low 5.9-8.[address] [facility] Comment on above: Performed By: #### L 501.3620, L500.3400 ####[facility] [address] [place], [address] No Panel InformationOrdered By: Leo Leal on 10-08-2024 316 U/L High <[address] [facility] Serum globulin measurementOr dered By: Leo Leal on 10-08-2024 Globulin (S) [Mass/Vol] 2.3 g/dL 2.2-4.2 [facility] Serum or plasma alanine reynoso otransferase (ALT) measurementOrdered By: Leo Leal on 10-08-2024 ALT [Catalytic activity/Vol] 295 U/L High <[address] [facility] Serum or plasma albumin anish urement (mass/volume)Ordered By: Leo Leal on 10-08-2024 Albumin [Mass/Vol] 2.7 g/dL Low 3.5-5.0 [facility] Serum or plasma alkaline brian sphatase measurementOrdered By: Leo Leal on 10-08-2024 ALP [Catalytic activity/Vol] 47 U/L 35-[address] [facility] Serum or plasma creatine kin ase activityOrdered By: Leo Leal on 10-08-2024 CK [Catalytic activity/Vol] 3464 U/L High 24-[address] [facility] Total proteinOrdered By: Kristen Leal on 10-08-2024 Protein [Mass/Vol] 5.0 g/dL Low 5.9-8.4 [facility] Urine Cultureon 10-08-2024 URC [address] [facility] Comment on above: Performed By: #### M 100.2200 ####[facility] [address] [place], [place], [id number] Absolute lymphocyte countOrd ered By: Estrella Gross on 10-07-2024 Lymphocytes Auto (Unsp spec) [#/Vol] 0.70 10*3/uL Low 0.83-4.[address] [facility] Absolute neutrophil countOrd ered By: Estrella Gross on 10-07-2024 Neutrophils (Bld) [#/Vol] 3.7 10*3/uL 2.0-7.[address] [facility] Anion gap in Serum or Plasma Ordered By: Estrella Gross on 10-07-2024 Anion gap [Moles/Vol] 8 mmol/L 5-15 [facility] Automated lymphocyte count a s percentage of total leukocytesOrdered By: Estrella Gross on 10-07-2024 Lymphocytes/100 WBC Auto (Unsp spec) 12.4 % Low 19-[address] [facility] BUN/creatinine ratioOrdered By: Estrella Gross on 10-07-2024 Urea nitrogen/Creatinine [Mass ratio] 13.1 mg/mg 10-[address] [facility] Basophil percentageOrdered B y: Estrella Gross on 10-07-2024 Basophils/100 WBC (Bld) 0.7 % 0-1 W [facility] CBC W/Diff, Automatedon Absolute Lymph 0.70 X10 3/uL Low 0.83-4.[address] [facility] Comment on above: Performed By: #### L 501.9520, L500.4050, L100.0100, L501.3620, L300.3900, L504.2610 ####[facility] [address] [place], [address] Absolute Neut 3.7 X10 3/uL Normal 2.0-7.[address] [facility] Comment on above: Performed By: #### L 501.9520, L500.4050, L100.0100, L501.3620, L300.3900, L504.2610 ####[facility] [address] [place], [address] Basophils/100 WBC (Bld) 0.7 % Normal 0-1 [facility] Comment on above: Performed By: #### L 501.9520, L500.4050, L100.0100, L501.3620, L300.3900, L504.2610 ####[facility] [address] [place], [address] Eosinophils/100 WBC (Bld) 15.2 % High 0-[address] [facility] Comment on above: Performed By: #### L 501.9520, L500.4050, L100.0100, L501.3620, L300.3900, L504.2610 ####[facility] [address] [place], [address] Erythrocyte distribution width (RBC) [Ratio] 15.2 % High 11.6-14.[address] [facility] Comment on above: Performed By: #### L 501.9520, L500.4050, L100.0100, L501.3620, L300.3900, L504.2610 ####[facility] [address] [place], [address] Hematocrit (Bld) [Volume fraction] 36.3 % Low 37-[address] [facility] Comment on above: Performed By: #### L 501.9520, L500.4050, L100.0100, L501.3620, L300.3900, L504.2610 ####[facility] [address] [place], [address] Hemoglobin (Bld) [Mass/Vol] 12.0 g/dL Normal 12.0-15.[address] [facility] Comment on above: Performed By: #### L 501.9520, L500.4050, L100.0100, L501.3620, L300.3900, L504.2610 ####[facility] [address] [place], [address] IG% 0.400 Normal 0.0-0.[address] [facility] Comment on above: Result Comment: IG% - Immature Granulocytes (promyelocytes, myelocytes andmetamyelocytes) > 1% indicates that a LEFT SHIFT is Present. Performed By: #### L 501.9520, L500.4050, L100.0100, L501.3620, L300.3900, L504.2610 ####[facility] [address] [place], [address] Lymphocytes/100 WBC (Bld) 12.4 % Low 19-[address] [facility] Comment on above: Performed By: #### L 501.9520, L500.4050, L100.0100, L501.3620, L300.3900, L504.2610 ####[facility] [address] [place], [address] MCH (RBC) [Entitic mass] 31.3 pg Normal 27.0-32.[address] [facility] Comment on above: Performed By: #### L 501.9520, L500.4050, L100.0100, L501.3620, L300.3900, L504.2610 ####[facility] [address] [place], [address] MCHC (RBC) [Mass/Vol] 33.1 g/dL Normal 32-36 [facility] Comment on above: Performed By: #### L 501.9520, L500.4050, L100.0100, L501.3620, L300.3900, L504.2610 ####[facility] [address] [place], [address] MCV (RBC) [Entitic vol] 94.8 fL Normal 81-99 [facility] Comment on above: Performed By: #### L 501.9520, L500.4050, L100.0100, L501.3620, L300.3900, L504.2610 ####[facility] [address] [place], [address] Monocytes/100 WBC (Bld) 6.9 % Normal 0-10 [facility] Comment on above: Performed By: #### L 501.9520, L500.4050, L100.0100, L501.3620, L300.3900, L504.2610 ####[facility] [address] [place], [address] Neutrophils/100 WBC (Bld) 64.4 % Normal 47-[address] [facility] Comment on above: Performed By: #### L 501.9520, L500.4050, L100.0100, L501.3620, L300.3900, L504.2610 ####[facility] [address] [place], [address] Nucleated RBC (Bld) [#/Vol] 0 10*3/uL Normal 0-[address] [facility] Comment on above: Performed By: #### L 501.9520, L500.4050, L100.0100, L501.3620, L300.3900, L504.2610 ####[facility] [address] [place], [address] Platelet mean volume (Bld) [Entitic vol] 11.9 fL Normal 6.2-12.[address] [facility] Comment on above: Performed By: #### L 501.9520, L500.4050, L100.0100, L501.3620, L300.3900, L504.2610 ####[facility] [address] [place], [address] Platelets (Bld) [#/Vol] 222 10*3/uL Normal 150-[address] [facility] Comment on above: Performed By: #### L 501.9520, L500.4050, L100.0100, L501.3620, L300.3900, L504.2610 ####[facility] [address] [place], [address] RBC (Bld) [#/Vol] 3.83 10*6/uL Low 4.2-5.4 [facility] Comment on above: Performed By: #### L 501.9520, L500.4050, L100.0100, L501.3620, L300.3900, L504.2610 ####[facility] [address] [place], [address] RDW SD 52.6 fl High 35.1-43.[address] [facility] Comment on above: Performed By: #### L 501.9520, L500.4050, L100.0100, L501.3620, L300.3900, L504.2610 ####[facility] [address] [place], [address] WBC (Bld) [#/Vol] 5.7 10*3/uL Normal 4.4-11.0 [facility] Comment on above: Performed By: #### L 501.9520, L500.4050, L100.0100, L501.3620, L300.3900, L504.2610 ####[facility] [address] [place], [address] CPK Total, Creatine Kinaseon 10-07-2024 CPK TOTAL 3084 U/L High 24-[address] [facility] Comment on above: Performed By: #### L 501.9520, L500.4050, L100.0100, L501.3620, L300.3900, L504.2610 ####[facility] [address] [place], [address] Carbon dioxide, total [Moles /volume] in Central venous bloodOrdered By: Estrella Gross on 10-07-2024 CO2 [Moles/Vol] 23.0 mmol/L 21.0-32.[address] [facility] Chloride assayOrdered By: Brian Gross on 10-07-2024 Chloride [Moles/Vol] 108 mmol/L 98-108 [facility] Comprehensive Metabolic Prof ilon 10-07-2024 Albumin [Mass/Vol] 2.8 g/dL Low 3.5-5.0 [facility] Comment on above: Performed By: #### L 501.9520, L500.4050, L100.0100, L501.3620, L300.3900, L504.2610 ####[facility] [address] [place], [address] Albumin/Globulin [Mass ratio] 1.3 {ratio} Normal 0.9-2.[address] [facility] Comment on above: Performed By: #### L 501.9520, L500.4050, L100.0100, L501.3620, L300.3900, L504.2610 ####[facility] [address] [place], [address] ALK PHOS 46 U/L Normal 35-[address] [facility] Comment on above: Performed By: #### L 501.9520, L500.4050, L100.0100, L501.3620, L300.3900, L504.2610 ####[facility] [address] [place], [address] ALT [Catalytic activity/Vol] 283 U/L High <=[address] [facility] Comment on above: Performed By: #### L 501.9520, L500.4050, L100.0100, L501.3620, L300.3900, L504.2610 ####[facility] [address] [place], [address] AST [Catalytic activity/Vol] 325 U/L High <=[address] [facility] Comment on above: Performed By: #### L 501.9520, L500.4050, L100.0100, L501.3620, L300.3900, L504.2610 ####[facility] [address] [place], [address] Bilirubin [Mass/Vol] 0.50 mg/dL Normal 0.00-1.30 [facility] Comment on above: Performed By: #### L 501.9520, L500.4050, L100.0100, L501.3620, L300.3900, L504.2610 ####[facility] [address] [place], [address] BUN/CRE 13.1 RATIO Normal 10-[address] [facility] Comment on above: Performed By: #### L 501.9520, L500.4050, L100.0100, L501.3620, L300.3900, L504.2610 ####[facility] [address] [place], [address] Calcium [Mass/Vol] 8.0 mg/dL Normal 7.6-11.0 [facility] Comment on above: Performed By: #### L 501.9520, L500.4050, L100.0100, L501.3620, L300.3900, L504.2610 ####[facility] [address] [place], [address] Chloride [Moles/Vol] 108 mmol/L Normal 98-108 [facility] Comment on above: Performed By: #### L 501.9520, L500.4050, L100.0100, L501.3620, L300.3900, L504.2610 ####[facility] [address] [place], [address] CO2 [Moles/Vol] 23.0 mmol/L Normal 21.0-32.[address] [facility] Comment on above: Performed By: #### L 501.9520, L500.4050, L100.0100, L501.3620, L300.3900, L504.2610 ####[facility] [address] [place], [address] Creatinine [Mass/Vol] 0.45 mg/dL Low 0.70-1.20 [facility] Comment on above: Performed By: #### L 501.9520, L500.4050, L100.0100, L501.3620, L300.3900, L504.2610 ####[facility] [address] [place], [address] ECRCL 165.51 ml/min Normal 50-[address] [facility] Comment on above: Performed By: #### L 501.9520, L500.4050, L100.0100, L501.3620, L300.3900, L504.2610 ####[facility] [address] [place], [address] GAP 8 Normal 5-[address] [facility] Comment on above: Performed By: #### L 501.9520, L500.4050, L100.0100, L501.3620, L300.3900, L504.2610 ####[facility] [address] [place], [address] GFR/1.73 sq M.predicted among non-blacks MDRD (S/P/Bld) [Vol rate/Area] 114 mL/min/{1.73_m2} Normal >[address] [facility] Comment on above: Result Comment: mL/m in/1.73m2 CKD-EPI Creatinine Equation (2020) Performed By: #### L 501.9520, L500.4050, L100.0100, L501.3620, L300.3900, L504.2610 ####[facility] [address] [place], [address] Globulin (S) [Mass/Vol] 2.1 g/dL Low 2.2-4.2 [facility] Comment on above: Performed By: #### L 501.9520, L500.4050, L100.0100, L501.3620, L300.3900, L504.2610 ####[facility] [address] [place], [address] Glucose [Mass/Vol] 102 mg/dL High 70-99 [facility] Comment on above: Performed By: #### L 501.9520, L500.4050, L100.0100, L501.3620, L300.3900, L504.2610 ####[facility] [address] [place], [address] Potassium [Moles/Vol] 3.3 mmol/L Normal 3.3-5.1 [facility] Comment on above: Performed By: #### L 501.9520, L500.4050, L100.0100, L501.3620, L300.3900, L504.2610 ####[facility] [address] [place], [address] Sodium [Moles/Vol] 139 mmol/L Normal 133-145 [facility] Comment on above: Performed By: #### L 501.9520, L500.4050, L100.0100, L501.3620, L300.3900, L504.2610 ####[facility] [address] [place], [address] T PROT 4.9 g/dL Low 5.9-8.[address] [facility] Comment on above: Performed By: #### L 501.9520, L500.4050, L100.0100, L501.3620, L300.3900, L504.2610 ####[facility] [address] [place], [address] Urea nitrogen [Mass/Vol] 6 mg/dL Normal 4-[address] [facility] Comment on above: Performed By: #### L 501.9520, L500.4050, L100.0100, L501.3620, L300.3900, L504.2610 ####[facility] [address] [place], [address] Eosinophil percentageOrdered By: Estrella Gross on 10-07-2024 Eosinophils/100 WBC (Bld) 15.2 % High 0-[address] [facility] Erythrocyte distribution wid th ratioOrdered By: Estrella Gross on 10-07-2024 Erythrocyte distribution width (RBC) [Ratio] 15.2 % High 11.6-14.[address] [facility] Erythrocyte distribution wid th standard deviationOrdered By: Estrella Gross on 10-07-2024 Erythrocyte distribution width (RBC) [Ratio] 52.6 fl High 35.1-43.[address] [facility] Glomerular filtration rate ( GFR) estimation/1.73 sq m using serum, plasma, or whole bOrdered By: Estrella Gross on 10-07-2024 GFR/1.73 sq M.predicted among non-blacks MDRD (S/P/Bld) [Vol rate/Area] 114 mL/min/{1.73_m2} >[address] [facility] Comment on above: mL/min/1.73m2 CKD-EP I Creatinine Equation (2020) Hematocrit Auto (Bld) [Volum e fraction]Ordered By: Estrella Gross on 10-07-2024 Hematocrit (Bld) [Volume fraction] 36.3 % Low 37-[address] [facility] Hemoglobin measurementOrdere d By: Estrella Gross on 10-07-2024 Hemoglobin (Bld) [Mass/Vol] 12.0 g/dL 12.0-15.[address] [facility] Immature granulocytes/100 WB C Auto (Bld)Ordered By: Estrella Gross on 10-07-2024 Immature granulocytes/100 WBC (Bld) 0.400 % 0.0-0.[address] [facility] Comment on above: IG% - Immature Granu locytes (promyelocytes, myelocytes and metamyelocytes) > 1% indicates that a LEFT SHIFT is Present. International normalized rat io (INR) calculationOrdered By: Estrella Gross on 10-07-2024 INR Coag (Bld) [Relative time] 1.2 {INR} [facility] LDHon 10-07-2024 LDH 963 U/L High [address] [facility] Comment on above: Performed By: #### L 501.9520, L500.4050, L100.0100, L501.3620, L300.3900, L504.2610 ####[facility] [address] [place], [address] Lactate dehydrogenase (LDH) measurementOrdered By: Estrella Gross on 10-07-2024 LDH [Catalytic activity/Vol] 963 U/L High 84-[address] [facility] MCV (mean corpuscular volume ) determinationOrdered By: Estrella Gross on 10-07-2024 MCV (RBC) [Entitic vol] 94.8 fL 81-99 [facility] Mean corpuscular hemoglobin (MCH) determinationOrdered By: Estrella Gross on 10-07-2024 MCH (RBC) [Entitic mass] 31.3 pg 27.0-32.[address] [facility] Mean corpuscular hemoglobin concentration (MCHC) determinationOrdered By: Estrella Gross on 10-07-2024 MCHC (RBC) [Mass/Vol] 33.1 g/dL 32-36 [facility] Mean platelet volume determi nationOrdered By: Estrella Gross on 10-07-2024 Platelet mean volume (Bld) [Entitic vol] 11.9 fL 6.2-12.[address] [facility] Monocyte percentageOrdered B y: Estrella Gross on 10-07-2024 Monocytes/100 WBC (Bld) 6.9 % 0-10 [facility] Neutrophil percentageOrdered By: Estrella Gross on 10-07-2024 Neutrophils/100 WBC (Bld) 64.4 % 47-[address] [facility] Nucleated red blood cell per centageOrdered By: Estrella Gross on 10-07-2024 Nucleated RBC/100 WBC (Bld) [Ratio] 0 % 0-[address] [facility] Platelet countOrdered By: Brian Gross on 10-07-2024 Platelets (Bld) [#/Vol] 222 10*3/uL 150-[address] [facility] Potassium measurement (mass/ volume)Ordered By: Estrella Gross on 10-07-2024 Potassium (Unsp spec) [Mass/Vol] 3.3 mmol/L 3.3-5.[address] [facility] Prothrombin Time w/INRon INR Coag (PPP) [Relative time] 1.2 {INR} Normal [facility] Comment on above: Performed By: #### L 501.9520, L500.4050, L100.0100, L501.3620, L300.3900, L504.2610 ####[facility] [address] [place], [place], [address] PT Coag (PPP) [Time] 15.7 s High 11.7-14.9 [facility] Comment on above: Performed By: #### L 501.9520, L500.4050, L100.0100, L501.3620, L300.3900, L504.2610 ####[facility] [address] [place], [address] Prothrombin timeOrdered By: Estrella Gross on 10-07-2024 PT Coag (PPP) [Time] 15.7 s High 11.7-14.9 [facility] RBC Auto (Bld) [#/Vol]Ordere d By: Estrella Gross on 10-07-2024 RBC (Bld) [#/Vol] 3.83 10*6/uL Low 4.2-5.4 [facility] Serum creatinine measurement (mass/volume)Ordered By: Estrella Gross on 10-07-2024 Creatinine [Mass/Vol] 0.45 mg/dL Low 0.70-1.20 [facility] Serum glucose measurement (m ass/volume)Ordered By: Estrella Gross on 10-07-2024 Glucose [Mass/Vol] 102 mg/dL High 70-99 [facility] Serum or plasma albumin/glob ulin mass ratioOrdered By: Estrella Gross on 10-07-2024 Albumin/Globulin [Mass ratio] 1.3 {ratio} 0.9-2.[address] [facility] Serum or plasma calcium anish urement (mass/volume)Ordered By: Estrella Gross on 10-07-2024 Calcium [Mass/Vol] 8.0 mg/dL 7.6-11.0 [facility] Serum or plasma urea nitroge n measurement (mass/volume)Ordered By: Estrella Gross on 10-07-2024 Urea nitrogen [Mass/Vol] 6 mg/dL 4-[address] [facility] Sodium levelOrdered By: Sharon Gross on 10-07-2024 Sodium [Moles/Vol] 139 mmol/L 133-145 [facility] TSH DL <= 0.005 mIU/L QnOrde red By: Estrella Gross on 10-07-2024 TSH Qn 7.560 uIU/mL High 0.300-4.[address] [facility] Thyroid Stim Hormone (TSH)on 10-07-2024 TSH 7.560 uIU/mL High 0.300-4.[address] [facility] Comment on above: Performed By: #### L 501.9520, L500.4050, L100.0100, L501.3620, L300.3900, L504.2610 ####[facility] [address] [place], [address] White blood cell (WBC) count Ordered By: Estrella Gross on 10-07-2024 WBC (Bld) [#/Vol] 5.7 10*3/uL 4.4-11.0 [facility] Abdomen Limitedon 10-06-2024 Abdomen Limited Normal [facility] Abdomen/Pelvis W IV Cont ONL Yon 10-06-2024 Abdomen/Pelvis W IV Cont ONLY Normal [facility] Absolute lymphocyte countOrd ered By: Willmadison Silveira on 10-06-2024 Lymphocytes Auto (Unsp spec) [#/Vol] 0.49 10*3/uL Low 0.83-4.[address] [facility] Absolute neutrophil countOrd ered By: Will Silveira on 10-06-2024 Neutrophils (Bld) [#/Vol] 4.9 10*3/uL 2.0-7.[address] [facility] Anion gap in Serum or Plasma Ordered By: Will Silveira on 10-06-2024 Anion gap [Moles/Vol] 11 mmol/L 5-15 [facility] Automated lymphocyte count a s percentage of total leukocytesOrdered By: Will Silveira on 10-06-2024 Lymphocytes/100 WBC Auto (Unsp spec) 7.6 % Low 19-[address] [facility] [facility] BUN/creatinine ratioOrdered By: Will Silveira on 10-06-2024 Urea nitrogen/Creatinine [Mass ratio] 15.1 mg/mg 10- [facility] Basic Metabolic Profile (BMP )on 10-06-2024 BUN/CRE 15.1 RATIO Normal - [facility] Comment on above: Performed By: #### L 100.0100, L500.3400, L501.2450, L500.2500 ####[facility] [address] [place], [address] Calcium [Mass/Vol] 8.9 mg/dL Normal 7.6-11.0 [facility] Comment on above: Performed By: #### L 100.0100, L500.3400, L501.2450, L500.2500 ####[facility] [address] [place], [address] Chloride [Moles/Vol] 103 mmol/L Normal 98-108 [facility] Comment on above: Performed By: #### L 100.0100, L500.3400, L501.2450, L500.2500 ####[facility] [address] [place], [address] CO2 [Moles/Vol] 24.7 mmol/L Normal 21.0-32.[address] [facility] Comment on above: Performed By: #### L 100.0100, L500.3400, L501.2450, L500.2500 ####[facility] [address] [place], [address] Creatinine [Mass/Vol] 0.51 mg/dL Low 0.70-1.20 [facility] Comment on above: Performed By: #### L 100.0100, L500.3400, L501.2450, L500.2500 ####[facility] [address] [place], [address] ECRCL 146.05 ml/min Normal 50-[address] [facility] Comment on above: Performed By: #### L 100.0100, L500.3400, L501.2450, L500.2500 ####[facility] [address] [place], [address] GAP 11 Normal 5-[address] [facility] Comment on above: Performed By: #### L 100.0100, L500.3400, L501.2450, L500.2500 ####[facility] [address] [place], [address] GFR/1.73 sq M.predicted among non-blacks MDRD (S/P/Bld) [Vol rate/Area] 110 mL/min/{1.73_m2} Normal >[address] [facility] Comment on above: Result Comment: mL/m in/1.73m2 CKD-EPI Creatinine Equation (2020) Performed By: #### L 100.0100, L500.3400, L501.2450, L500.2500 ####[facility] [address] [place], [address] Glucose [Mass/Vol] 110 mg/dL High 70-99 [facility] Comment on above: Performed By: #### L 100.0100, L500.3400, L501.2450, L500.2500 ####[facility] [address] [place], [address] Potassium [Moles/Vol] 3.6 mmol/L Normal 3.3-5.1 [facility] Comment on above: Performed By: #### L 100.0100, L500.3400, L501.2450, L500.2500 ####[facility] [address] [place], [address] Sodium [Moles/Vol] 139 mmol/L Normal 133-145 [facility] Comment on above: Performed By: #### L 100.0100, L500.3400, L501.2450, L500.2500 ####[facility] [address] [place], [address] Urea nitrogen [Mass/Vol] 8 mg/dL Normal 4-[address] [facility] Comment on above: Performed By: #### L 100.0100, L500.3400, L501.2450, L500.2500 ####[facility] [address] [place], [address] Basophil percentageOrdered B y: Will Silveira on 10-06-2024 Basophils/100 WBC (Bld) 0.6 % 0-1 [facility] Bilirubin Test strip Ql (U)O rdered By: Will Silveira on 10-06-2024 Bilirubin Ql (U) Negative Negative [facility] Bilirubin directOrdered By: Will Silveira on 10-06-2024 Bilirubin.direct [Mass/Vol] 0.36 mg/dL High 0.00-0.[address] [facility] Bilirubin, totalOrdered By: Will Silveira on 10-06-2024 Bilirubin [Mass/Vol] 0.75 mg/dL 0.00-1.30 [facility] CBC W/Diff, Automatedon Absolute Lymph 0.49 X10 3/uL Low 0.83-4.[address] [facility] Comment on above: Performed By: #### L 100.0100, L500.3400, L501.2450, L500.2500 ####[facility] [address] [place], [address] Absolute Neut 4.9 X10 3/uL Normal 2.0-7.[address] [facility] Comment on above: Performed By: #### L 100.0100, L500.3400, L501.2450, L500.2500 ####[facility] [address] [place], [address] Basophils/100 WBC (Bld) 0.6 % Normal 0-1 [facility] Comment on above: Performed By: #### L 100.0100, L500.3400, L501.2450, L500.2500 ####[facility] [address] [place], [address] Eosinophils/100 WBC (Bld) 10.4 % High 0-[address] [facility] Comment on above: Performed By: #### L 100.0100, L500.3400, L501.2450, L500.2500 ####[facility] [address] [place], [address] Erythrocyte distribution width (RBC) [Ratio] 15.0 % High 11.6-14.[address] [facility] Comment on above: Performed By: #### L 100.0100, L500.3400, L501.2450, L500.2500 ####[facility] [address] [place], [address] Hematocrit (Bld) [Volume fraction] 41.7 % Normal 37-[address] [facility] Comment on above: Performed By: #### L 100.0100, L500.3400, L501.2450, L500.2500 ####[facility] [address] [place], [address] Hemoglobin (Bld) [Mass/Vol] 13.7 g/dL Normal 12.0-15.[address] [facility] Comment on above: Performed By: #### L 100.0100, L500.3400, L501.2450, L500.2500 ####[facility] [address] [place], [address] IG% 0.200 Normal 0.0-0.[address] [facility] Comment on above: Result Comment: IG% - Immature Granulocytes (promyelocytes, myelocytes andmetamyelocytes) > 1% indicates that a LEFT SHIFT is Present. Performed By: #### L 100.0100, L500.3400, L501.2450, L500.2500 ####[facility] [address] [place], [address] Lymphocytes/100 WBC (Bld) 7.6 % Low 19-[address] [facility] Comment on above: Performed By: #### L 100.0100, L500.3400, L501.2450, L500.2500 ####[facility] [address] [place], [address] MCH (RBC) [Entitic mass] 30.7 pg Normal 27.0-32.[address] [facility] Comment on above: Performed By: #### L 100.0100, L500.3400, L501.2450, L500.2500 ####[facility] [address] [place], [address] MCHC (RBC) [Mass/Vol] 32.9 g/dL Normal 32-36 [facility] Comment on above: Performed By: #### L 100.0100, L500.3400, L501.2450, L500.2500 ####[facility] [address] [place], [address] MCV (RBC) [Entitic vol] 93.5 fL Normal 81-99 [facility] Comment on above: Performed By: #### L 100.0100, L500.3400, L501.2450, L500.2500 ####[facility] [address] [place], [address] Monocytes/100 WBC (Bld) 5.9 % Normal 0-10 [facility] Comment on above: Performed By: #### L 100.0100, L500.3400, L501.2450, L500.2500 ####[facility] [address] [place], [address] Neutrophils/100 WBC (Bld) 75.3 % High 47-[address] [facility] Comment on above: Performed By: #### L 100.0100, L500.3400, L501.2450, L500.2500 ####[facility] [address] [place], [address] Nucleated RBC (Bld) [#/Vol] 0 10*3/uL Normal 0-[address] [facility] Comment on above: Performed By: #### L 100.0100, L500.3400, L501.2450, L500.2500 ####[facility] [address] [place], [address] Platelet mean volume (Bld) [Entitic vol] 11.6 fL Normal 6.2-12.[address] [facility] Comment on above: Performed By: #### L 100.0100, L500.3400, L501.2450, L500.2500 ####[facility] [address] [place], [address] Platelets (Bld) [#/Vol] 247 10*3/uL Normal 150-[address] [facility] Comment on above: Performed By: #### L 100.0100, L500.3400, L501.2450, L500.2500 ####[facility] [address] [place], [address] RBC (Bld) [#/Vol] 4.46 10*6/uL Normal 4.2-5.4 [facility] Comment on above: Performed By: #### L 100.0100, L500.3400, L501.2450, L500.2500 ####[facility] [address] [place], [address] RDW SD 52.3 fl High 35.1-43.[address] [facility] Comment on above: Performed By: #### L 100.0100, L500.3400, L501.2450, L500.2500 ####[facility] [address] [place], [address] WBC (Bld) [#/Vol] 6.4 10*3/uL Normal 4.4-11.0 [facility] Comment on above: Performed By: #### L 100.0100, L500.3400, L501.2450, L500.2500 ####[facility] [address] [place], [address] CPK Total, Creatine Kinaseon 10-06-2024 CPK TOTAL 5727 U/L High 24-[address] [facility] Comment on above: Performed By: #### L 504.2610, L501.3620 ####[facility] [address] [place], [address] Carbon dioxide, total [Moles /volume] in Central venous bloodOrdered By: Will Silveira on 10-06-2024 CO2 [Moles/Vol] 24.7 mmol/L 21.0-32.[address] [facility] Chloride assayOrdered By: Du Silveira on 10-06-2024 Chloride [Moles/Vol] 103 mmol/L 98-108 [facility] Emergency Department Summary on 10-06-2024 Emergency Department Summary Normal [facility] Eosinophil percentageOrdered By: Will Silveira on 10-06-2024 Eosinophils/100 WBC (Bld) 10.4 % High 0-[address] [facility] Erythrocyte distribution wid th ratioOrdered By: Will Silveira on 10-06-2024 Erythrocyte distribution width (RBC) [Ratio] 15.0 % High 11.6-14.[address] [facility] Erythrocyte distribution wid th standard deviationOrdered By: Will Atwood on 10-06-2024 Erythrocyte distribution width (RBC) [Ratio] 52.3 fl High 35.1-43.[address] [facility] Glomerular filtration rate ( GFR) estimation/1.73 sq m using serum, plasma, or whole bOrdered By: Will Silveira on 10-06-2024 GFR/1.73 sq M.predicted among non-blacks MDRD (S/P/Bld) [Vol rate/Area] 110 mL/min/{1.73_m2} >[address] [facility] Comment on above: mL/min/1.73m2 CKD-EP I Creatinine Equation (2020) H AND P Exam - Hospitaliston 10-06-2024 H&P Exam - Hospitalist Normal [facility] Hematocrit Auto (Bld) [Volum e fraction]Ordered By: Will Silveira on 10-06-2024 Hematocrit (Bld) [Volume fraction] 41.7 % 37-[address] [facility] Hemoglobin measurementOrdere d By: Will Silveira on 10-06-2024 Hemoglobin (Bld) [Mass/Vol] 13.7 g/dL 12.0-15.[address] [facility] Hyaline casts LM.LPF (Urine sed) [#/Area]Ordered By: Willmadison Silveira on 10-06-2024 Hyaline casts (Urine sed) [#/Area] 0 /[LPF] 0-[address] [facility] Immature granulocytes/100 WB C Auto (Bld)Ordered By: Willmadison Silveira on 10-06-2024 Immature granulocytes/100 WBC (Bld) 0.200 % 0.0-0.[address] [facility] Comment on above: IG% - Immature Granu locytes (promyelocytes, myelocytes and metamyelocytes) > 1% indicates that a LEFT SHIFT is Present. Influenza virus A and B and SARS-CoV-2 (COVID-19) and Respiratory syncytial virus RNAOrdered By: Will Silveira on 10-06-2024 SARS-CoV-2 (COVID-19) RNA ALISON+probe Ql (Unsp spec) [facility] Ketones Test strip Ql (U)Ord ered By: Willmadison Silveira on 10-06-2024 Ketones Ql (U) Negative Negative [facility] LDHon 10-06-2024 LDH 1314 U/L High 84-[address] [facility] Comment on above: Performed By: #### L 504.2610, L501.3620 ####[facility] [address] [place], [place], [id number] Laboratory - Chemistry and C hemistry - challengeOrdered By: Will Raoul on 10-06-2024 AST [Catalytic activity/Vol] 458 U/L High <[address] [facility] Lactate dehydrogenase (LDH) measurementOrdered By: Will Pankaj on 10-06-2024 LDH [Catalytic activity/Vol] 1314 U/L High 84-[address] [facility] Lipaseon 10-06-2024 Lipase [Catalytic activity/Vol] 28 U/L Normal 13-[address] [facility] Comment on above: Result Comment: Cornelius ace note:LIPASE revised reference range effective 22.New Lipase methodology. Expected to produce lower valuesthan the previous assay method.NEW Reference Range: 13 - 75 U/L Performed By: #### L 100.0100, L500.3400, L501.2450, L500.2500 ####[facility] [address] [place], [address] Lipase measurementOrdered By : Will Silveira on 10-06-2024 Lipase [Catalytic activity/Vol] 28 U/L 13-[address] [facility] Comment on above: Please note:LIPASE r evised reference range effective 22. New Lipase methodology. Expected to produce lower values than the previous assay method. NEW Reference Range: 13 - 75 U/L Liver Profileon 10-06-2024 Albumin [Mass/Vol] 3.5 g/dL Normal 3.5-5.0 [facility] Comment on above: Performed By: #### L 100.0100, L500.3400, L501.2450, L500.2500 ####[facility] [address] [place], [address] ALK PHOS 56 U/L Normal 35-[address] [facility] Comment on above: Performed By: #### L 100.0100, L500.3400, L501.2450, L500.2500 ####[facility] [address] [place], [address] ALT [Catalytic activity/Vol] 404 U/L High <=[address] [facility] Comment on above: Performed By: #### L 100.0100, L500.3400, L501.2450, L500.2500 ####[facility] [address] [place], [address] AST [Catalytic activity/Vol] 458 U/L High <=[address] [facility] Comment on above: Performed By: #### L 100.0100, L500.3400, L501.2450, L500.2500 ####[facility] [address] [place], [address] Bilirubin [Mass/Vol] 0.75 mg/dL Normal 0.00-1.30 [facility] Comment on above: Performed By: #### L 100.0100, L500.3400, L501.2450, L500.2500 ####[facility] [address] [place], [address] Bilirubin.direct [Mass/Vol] 0.36 mg/dL High 0.00-0.[address] [facility] Comment on above: Performed By: #### L 100.0100, L500.3400, L501.2450, L500.2500 ####[facility] [address] [place], [address] Globulin (S) [Mass/Vol] 2.6 g/dL Normal 2.2-4.2 [facility] Comment on above: Performed By: #### L 100.0100, L500.3400, L501.2450, L500.2500 ####[facility] [address] [place], [address] T PROT 6.1 g/dL Normal 5.9-8.[address] [facility] Comment on above: Performed By: #### L 100.0100, L500.3400, L501.2450, L500.2500 ####[facility] [address] [place], [address] M100.678on 10-06-2024 M100.678 Pending SARS-CoV-2 (COVID 19) Negative INFLUENZA A Negative INFLUENZA B Negative RSV PCR Negative Normal [facility] Comment on above: Performed By: #### M 100.678 ####[facility] [address] [place], [address] MCV (mean corpuscular volume ) determinationOrdered By: Will Silveira on 10-06-2024 MCV (RBC) [Entitic vol] 93.5 fL 81-99 [facility] Mean corpuscular hemoglobin (MCH) determinationOrdered By: Will Silveira on 10-06-2024 MCH (RBC) [Entitic mass] 30.7 pg 27.0-32.[address] [facility] Mean corpuscular hemoglobin concentration (MCHC) determinationOrdered By: Will Silveira on 10-06-2024 MCHC (RBC) [Mass/Vol] 32.9 g/dL 32-36 [facility] Mean platelet volume determi nationOrdered By: Will Silveira on 10-06-2024 Platelet mean volume (Bld) [Entitic vol] 11.6 fL 6.2-12.[address] [facility] Microscopic analysis of urin e for red blood cells (RBC)Ordered By: Will Silveira on 10-06-2024 Microscopic analysis of urine for red blood cells (RBC) 5-10 SEEN /hpf 0-[address] [facility] Monocyte percentageOrdered B y: Will Silveira on 10-06-2024 Monocytes/100 WBC (Bld) 5.9 % 0-10 [facility] Mucus LM Ql (Urine sed)Order ed By: Will Silveira on 10-06-2024 Mucus Ql (Urine sed) 0 SEEN /hpf [facility] Neutrophil percentageOrdered By: Will Silveira on 10-06-2024 Neutrophils/100 WBC (Bld) 75.3 % High 47-[address] [facility] Nitrite Test strip Ql (U)Ord ered By: Will Silveira on 10-06-2024 Nitrite Ql (U) Positive High Negative [facility] No Panel InformationOrdered By: Estrella Gross on 10-06-2024 Hepatitis C Antibody Comment Comment . [facility] Comment on above: Not infected with HC V unless early or acute infection issuspected (which may be delayed in an immunocompromisedindividual), or other evidence exists to indicate HCVinfection.Performed at: [facility] [place] [id number] Director: Kevin Prasad PhD, Phone: [phone] Comment . [facility] Nucleated red blood cell per centageOrdered By: Will Silveira on 10-06-2024 Nucleated RBC/100 WBC (Bld) [Ratio] 0 % 0-[address] [facility] Platelet countOrdered By: Du Silveira on 10-06-2024 Platelets (Bld) [#/Vol] 247 10*3/uL 150-[address] [facility] Potassium measurement (mass/ volume)Ordered By: Will Silveira on 10-06-2024 Potassium (Unsp spec) [Mass/Vol] 3.6 mmol/L 3.3-5.[address] [facility] Protein Test strip Ql (U)Ord ered By: Will Silveira on 10-06-2024 Protein Ql (U) 30 mg/dl High Negative [facility] RBC Auto (Bld) [#/Vol]Ordere d By: Will Silveira on 10-06-2024 RBC (Bld) [#/Vol] 4.46 10*6/uL 4.2-5.4 [facility] Serum creatinine measurement (mass/volume)Ordered By: Will Silveira on 10-06-2024 Creatinine [Mass/Vol] 0.51 mg/dL Low 0.70-1.20 [facility] Serum globulin measurementOr dered By: Will Silveira on 10-06-2024 Globulin (S) [Mass/Vol] 2.6 g/dL 2.2-4.2 [facility] Serum glucose measurement (m ass/volume)Ordered By: Will Silveira on 10-06-2024 Glucose [Mass/Vol] 110 mg/dL High 70-99 [facility] Serum or plasma alanine reynoso otransferase (ALT) measurementOrdered By: Will Silveira on 10-06-2024 ALT [Catalytic activity/Vol] 404 U/L High <[address] [facility] Serum or plasma albumin anish urement (mass/volume)Ordered By: Will Atwood on 10-06-2024 Albumin [Mass/Vol] 3.5 g/dL 3.5-5.0 [facility] Serum or plasma alkaline brian sphatase measurementOrdered By: Will Silveira on 10-06-2024 ALP [Catalytic activity/Vol] 56 U/L 35-[address] [facility] Serum or plasma calcium anish urement (mass/volume)Ordered By: Will Atwood on 10-06-2024 Calcium [Mass/Vol] 8.9 mg/dL 7.6-11.0 [facility] Serum or plasma creatine kin ase activityOrdered By: Will Silveira on 10-06-2024 CK [Catalytic activity/Vol] 5727 U/L High 24-[address] [facility] Serum or plasma hepatitis B virus surface antigen detection by immunoassayOrdered By: Estrella Gross on 10-06-2024 HBV surface Ag IA Ql Negative Negative [facility] Serum or plasma urea nitroge n measurement (mass/volume)Ordered By: Will Silveira on 10-06-2024 Urea nitrogen [Mass/Vol] 8 mg/dL 4-[address] [facility] Sodium levelOrdered By: Beka Silveira on 10-06-2024 Sodium [Moles/Vol] 139 mmol/L 133-145 [facility] Squamous epithelial cells de tection in urine sediment by light microscopyOrdered By: Will Silveira on 10-06-2024 Epithelial cells.squamous LM Ql (Urine sed) 5-10 SEEN /hpf 5-[address] [facility] Total proteinOrdered By: Mg Silveira on 10-06-2024 Protein [Mass/Vol] 6.1 g/dL 5.9-8.4 [facility] Urinalysis, Completeon 10-06 CAST,HYALINE 0-5 SEEN Normal 0-[address] [facility] Comment on above: Order Comment: COLOR OF URINE MAY AFFECT DIPSTICK RESULTS.CLEAN CATCH Performed By: #### L 400.0001 ####[facility] [address] [place], [address] BACTERIA 3+ /hpf Normal None Seen [facility] Comment on above: Order Comment: COLOR OF URINE MAY AFFECT DIPSTICK RESULTS.CLEAN CATCH Performed By: #### L 400.0001 ####[facility] [address] [place], [address] EPI,SQUAMOUS 5-10 SEEN Normal 5-[address] [facility] Comment on above: Order Comment: COLOR OF URINE MAY AFFECT DIPSTICK RESULTS.CLEAN CATCH Performed By: #### L 400.0001 ####[facility] [address] [place], [address] RBC 5-10 SEEN Normal 0-[address] [facility] Comment on above: Order Comment: COLOR OF URINE MAY AFFECT DIPSTICK RESULTS.CLEAN CATCH Performed By: #### L 400.0001 ####[facility] [address] [place], [address] WBC 10-25 SEEN Normal 0-[address] [facility] Comment on above: Order Comment: COLOR OF URINE MAY AFFECT DIPSTICK RESULTS.CLEAN CATCH Performed By: #### L 400.0001 ####[facility] [address] [place], [address] Mucus Ql (Urine sed) 0 SEEN Normal [facility] Comment on above: Order Comment: COLOR OF URINE MAY AFFECT DIPSTICK RESULTS.CLEAN CATCH Performed By: #### L 400.0001 ####[facility] [address] [place], [address] Urine clarityOrdered By: Mg Silveira on 10-06-2024 Clarity (U) Sl. Cloudy Clear [facility] Urine color determinationOrd ered By: Will Silveira on 10-06-2024 Color (U) Olga Lidia Yellow [facility] Urine cultureOrdered By: Mg Silveira on 10-06-2024 Bacteria identified Cx Nom (U) Escherichia coli Abnormal [facility] Urine glucose detectionOrder ed By: Will Silveira on 10-06-2024 Glucose Ql (U) Normal mg/dl Normal [facility] Urine leukocyte esterase det ection by dipstickOrdered By: Will Silveira on 10-06-2024 Leukocyte esterase Test strip Ql (U) 100 /ul High Negative [facility] Urine pHOrdered By: Will Lira on 10-06-2024 pH (U) 6.0 [pH] 5.0 - 8.[address] [facility] Urine sediment bacteria coun t by microscopy (number/high power field)Ordered By: Will Silveira on 10-06-2024 Bacteria LM.HPF (Urine sed) [#/Area] 3 /[HPF] None Seen [facility] Urine specific gravity measu rementOrdered By: Will Silveira on 10-06-2024 Specific gravity (U) [Rel density] 1.020 1.002-1.[address] [facility] Urine urobilinogen measureme ntOrdered By: Will Silveira on 10-06-2024 Urobilinogen Ql (U) 1 mg/dl High Normal [facility] White blood cell (WBC) count Ordered By: Will Silveira on 10-06-2024 WBC (Bld) [#/Vol] 6.4 10*3/uL 4.4-11.0 [facility] White blood cell countOrdere d By: Will Silveira on 10-06-2024 White blood cell count 10-25 SEEN /hpf 0-[address] [facility] Absolute lymphocyte countOrd ered By: Javier Morales on 09-10-2024 Lymphocytes Auto (Unsp spec) [#/Vol] 0.77 10*3/uL Low 0.83-4.[address] [facility] Absolute neutrophil countOrd ered By: Javier Morales on 09-10-2024 Neutrophils (Bld) [#/Vol] 5.2 10*3/uL 2.0-7.[address] [facility] Anion gap in Serum or Plasma Ordered By: Javier Morales on 09-10-2024 Anion gap [Moles/Vol] 11 mmol/L 5-15 [facility] Automated lymphocyte count a s percentage of total leukocytesOrdered By: Javier Morales on 09-10-2024 Lymphocytes/100 WBC Auto (Unsp spec) 11.4 % Low 19-[address] [facility] BUN/creatinine ratioOrdered By: Javier Morales on 09-10-2024 Urea nitrogen/Creatinine [Mass ratio] 11.9 mg/mg 10-[address] [facility] Basophil percentageOrdered B y: Javier Moralse on 09-10-2024 Basophils/100 WBC (Bld) 0.4 % 0-1 [facility] Bilirubin directOrdered By: Javier Morales on 09-10-2024 Bilirubin.direct [Mass/Vol] 0.27 mg/dL 0.00-0.[address] [facility] Bilirubin, Directon 09-11-19 25 Bilirubin.direct [Mass/Vol] 0.27 mg/dL Normal 0.00-0.[address] [facility] Comment on above: Order Comment: DR.MH ALVAREZ ORDERED LIPID AND LIVERNP.MICHAEL ORDERED LIPID,CMP,CBCD,A1C,TSH,AND T4F Performed By: #### L 100.0100, L501.9985, L500.4050, L506.0400, L500.4100, L501.4700, L501.9520 ####[facility] [address] [place], [address] Bilirubin, totalOrdered By: Javier Morales on 09-10-2024 Bilirubin [Mass/Vol] 0.63 mg/dL 0.00-1.30 [facility] CBC W/Diff, Automatedon 08-31 Absolute Lymph 0.77 X10 3/uL Low 0.83-4.[address] [facility] Comment on above: Order Comment: DR.MH ALVAREZ ORDERED LIPID AND LIVERNP.MICHAEL ORDERED LIPID,CMP,CBCD,A1C,TSH,AND T4F Performed By: #### L 100.0100, L501.9985, L500.4050, L506.0400, L500.4100, L501.4700, L501.9520 ####[facility] [address] [place], [address] Absolute Neut 5.2 X10 3/uL Normal 2.0-7.[address] [facility] Comment on above: Order Comment: DR.MH ALVAREZ ORDERED LIPID AND LIVERNP.JFRANKLIN ORDERED LIPID,CMP,CBCD,A1C,TSH,AND T4F Performed By: #### L 100.0100, L501.9985, L500.4050, L506.0400, L500.4100, L501.4700, L501.9520 ####[facility] [address] [place], [address] Basophils/100 WBC (Bld) 0.4 % Normal 0-1 [facility] Comment on above: Order Comment: DR.MH ALVAREZ ORDERED LIPID AND LIVERNP.JFRANKLIN ORDERED LIPID,CMP,CBCD,A1C,TSH,AND T4F Performed By: #### L 100.0100, L501.9985, L500.4050, L506.0400, L500.4100, L501.4700, L501.9520 ####[facility] [address] [place], [address] Eosinophils/100 WBC (Bld) 6.9 % High 0-[address] [facility] Comment on above: Order Comment: DR.MH ALVAREZ ORDERED LIPID AND LIVERNP.JFRANKLIN ORDERED LIPID,CMP,CBCD,A1C,TSH,AND T4F Performed By: #### L 100.0100, L501.9985, L500.4050, L506.0400, L500.4100, L501.4700, L501.9520 ####[facility] [address] [place], [address] Erythrocyte distribution width (RBC) [Ratio] 13.5 % Normal 11.6-14.[address] [facility] Comment on above: Order Comment: DR.MH ALVAREZ ORDERED LIPID AND LIVERNP.JFRANKLIN ORDERED LIPID,CMP,CBCD,A1C,TSH,AND T4F Performed By: #### L 100.0100, L501.9985, L500.4050, L506.0400, L500.4100, L501.4700, L501.9520 ####[facility] [address] [place], [address] Hematocrit (Bld) [Volume fraction] 41.7 % Normal 37-[address] [facility] Comment on above: Order Comment: DR.MH ALVAREZ ORDERED LIPID AND LIVERNP.KDRANKLIN ORDERED LIPID,CMP,CBCD,A1C,TSH,AND T4F Performed By: #### L 100.0100, L501.9985, L500.4050, L506.0400, L500.4100, L501.4700, L501.9520 ####[facility] [address] [place], [address] Hemoglobin (Bld) [Mass/Vol] 13.8 g/dL Normal 12.0-15.[address] [facility] Comment on above: Order Comment: DR.MH ALVAREZ ORDERED LIPID AND LIVERNP.MICHAEL ORDERED LIPID,CMP,CBCD,A1C,TSH,AND T4F Performed By: #### L 100.0100, L501.9985, L500.4050, L506.0400, L500.4100, L501.4700, L501.9520 ####[facility] [address] [place], [address] IG% 0.400 Normal 0.0-0.[address] [facility] Comment on above: Order Comment: DR.MH ALVAREZ ORDERED LIPID AND LIVERNP.MICHAEL ORDERED LIPID,CMP,CBCD,A1C,TSH,AND T4F Result Comment: IG% - Immature Granulocytes (promyelocytes, myelocytes andmetamyelocytes) > 1% indicates that a LEFT SHIFT is Present. Performed By: #### L 100.0100, L501.9985, L500.4050, L506.0400, L500.4100, L501.4700, L501.9520 ####[facility] [address] [place], [address] Lymphocytes/100 WBC (Bld) 11.4 % Low 19-[address] [facility] Comment on above: Order Comment: DR.MH ALVAREZ ORDERED LIPID AND LIVERNP.MICHAEL ORDERED LIPID,CMP,CBCD,A1C,TSH,AND T4F Performed By: #### L 100.0100, L501.9985, L500.4050, L506.0400, L500.4100, L501.4700, L501.9520 ####[facility] [address] [place], [address] MCH (RBC) [Entitic mass] 30.9 pg Normal 27.0-32.[address] [facility] Comment on above: Order Comment: DR.MH ALVAREZ ORDERED LIPID AND LIVERNP.MICHAEL ORDERED LIPID,CMP,CBCD,A1C,TSH,AND T4F Performed By: #### L 100.0100, L501.9985, L500.4050, L506.0400, L500.4100, L501.4700, L501.9520 ####[facility] [address] [place], [address] MCHC (RBC) [Mass/Vol] 33.1 g/dL Normal 32-36 [facility] Comment on above: Order Comment: DR.MH ALVAREZ ORDERED LIPID AND LIVERNP.MICHAEL ORDERED LIPID,CMP,CBCD,A1C,TSH,AND T4F Performed By: #### L 100.0100, L501.9985, L500.4050, L506.0400, L500.4100, L501.4700, L501.9520 ####[facility] [address] [place], [address] MCV (RBC) [Entitic vol] 93.3 fL Normal 81-99 [facility] Comment on above: Order Comment: DR.MH ALVAREZ ORDERED LIPID AND LIVERNP.MICHAEL ORDERED LIPID,CMP,CBCD,A1C,TSH,AND T4F Performed By: #### L 100.0100, L501.9985, L500.4050, L506.0400, L500.4100, L501.4700, L501.9520 ####[facility] [address] [place], [address] Monocytes/100 WBC (Bld) 4.0 % Normal 0-10 [facility] Comment on above: Order Comment: DR.MH ALVAREZ ORDERED LIPID AND LIVERNP.KDRANAPOLINAR ORDERED LIPID,CMP,CBCD,A1C,TSH,AND T4F Performed By: #### L 100.0100, L501.9985, L500.4050, L506.0400, L500.4100, L501.4700, L501.9520 ####[facility] [address] [place], [address] Neutrophils/100 WBC (Bld) 76.9 % High 47-[address] [facility] Comment on above: Order Comment: DR.MH ALVAREZ ORDERED LIPID AND LIVERNP.KDRANAPOLINAR ORDERED LIPID,CMP,CBCD,A1C,TSH,AND T4F Performed By: #### L 100.0100, L501.9985, L500.4050, L506.0400, L500.4100, L501.4700, L501.9520 ####[facility] [address] [place], [address] Nucleated RBC (Bld) [#/Vol] 0 10*3/uL Normal 0-[address] [facility] Comment on above: Order Comment: DR.MH ALVAREZ ORDERED LIPID AND LIVERNP.MICHAEL ORDERED LIPID,CMP,CBCD,A1C,TSH,AND T4F Performed By: #### L 100.0100, L501.9985, L500.4050, L506.0400, L500.4100, L501.4700, L501.9520 ####[facility] [address] [place], [address] Platelet mean volume (Bld) [Entitic vol] 11.9 fL Normal 6.2-12.[address] [facility] Comment on above: Order Comment: DR.MH ALVAREZ ORDERED LIPID AND LIVERNP.JFRANKLIN ORDERED LIPID,CMP,CBCD,A1C,TSH,AND T4F Performed By: #### L 100.0100, L501.9985, L500.4050, L506.0400, L500.4100, L501.4700, L501.9520 ####[facility] [address] [place], [address] Platelets (Bld) [#/Vol] 216 10*3/uL Normal 150-[address] [facility] Comment on above: Order Comment: DR.MH ALVAREZ ORDERED LIPID AND LIVERNP.JFRANKLIN ORDERED LIPID,CMP,CBCD,A1C,TSH,AND T4F Performed By: #### L 100.0100, L501.9985, L500.4050, L506.0400, L500.4100, L501.4700, L501.9520 ####[facility] [address] [place], [address] RBC (Bld) [#/Vol] 4.47 10*6/uL Normal 4.2-5.4 [facility] Comment on above: Order Comment: DR.MH ALVAREZ ORDERED LIPID AND LIVERNP.JFRANKLIN ORDERED LIPID,CMP,CBCD,A1C,TSH,AND T4F Performed By: #### L 100.0100, L501.9985, L500.4050, L506.0400, L500.4100, L501.4700, L501.9520 ####[facility] [address] [place], [address] RDW SD 45.9 fl High 35.1-43.[address] [facility] Comment on above: Order Comment: DR.MH ALVAREZ ORDERED LIPID AND LIVERNP.JFRANKLIN ORDERED LIPID,CMP,CBCD,A1C,TSH,AND T4F Performed By: #### L 100.0100, L501.9985, L500.4050, L506.0400, L500.4100, L501.4700, L501.9520 ####[facility] [address] [place], [address] WBC (Bld) [#/Vol] 6.8 10*3/uL Normal 4.4-11.0 [facility] Comment on above: Order Comment: DR.MH ALVAREZ ORDERED LIPID AND LIVERNP.MICHAEL ORDERED LIPID,CMP,CBCD,A1C,TSH,AND T4F Performed By: #### L 100.0100, L501.9985, L500.4050, L506.0400, L500.4100, L501.4700, L501.9520 ####[facility] [address] [place], [address] Calculated very low density lipoprotein (VLDL) cholesterol measurementOrdered By: Javier Morales on 09-10-2024 Calculated very low density lipoprotein (VLDL) cholesterol measurement 15 mg/dL 5-[address] [facility] Carbon dioxide, total [Moles /volume] in Central venous bloodOrdered By: Javier Morales on 09-10-2024 CO2 [Moles/Vol] 24.4 mmol/L 21.0-32.[address] [facility] Chloride assayOrdered By: Ann-Marie Morales on 09-10-2024 Chloride [Moles/Vol] 104 mmol/L 98-108 [facility] Comprehensive Metabolic Prof ilon 09-10-2024 Albumin [Mass/Vol] 3.8 g/dL Normal 3.5-5.0 [facility] Comment on above: Order Comment: DR.MH ALVAREZ ORDERED LIPID AND LIVERNP.MICHAEL ORDERED LIPID,CMP,CBCD,A1C,TSH,AND T4F Performed By: #### L 100.0100, L501.9985, L500.4050, L506.0400, L500.4100, L501.4700, L501.9520 ####[facility] [address] [place], [address] Albumin/Globulin [Mass ratio] 1.3 {ratio} Normal 0.9-2.[address] [facility] Comment on above: Order Comment: DR.MH ALVAREZ ORDERED LIPID AND LIVERNP.JFRANKLIN ORDERED LIPID,CMP,CBCD,A1C,TSH,AND T4F Performed By: #### L 100.0100, L501.9985, L500.4050, L506.0400, L500.4100, L501.4700, L501.9520 ####[facility] [address] [place], [address] ALK PHOS 74 U/L Normal 35-[address] [facility] Comment on above: Order Comment: DR.MH ALVAREZ ORDERED LIPID AND LIVERNP.JFRANKLIN ORDERED LIPID,CMP,CBCD,A1C,TSH,AND T4F Performed By: #### L 100.0100, L501.9985, L500.4050, L506.0400, L500.4100, L501.4700, L501.9520 ####[facility] [address] [place], [address] ALT [Catalytic activity/Vol] 100 U/L High <=[address] [facility] Comment on above: Order Comment: DR.MH ALVAREZ ORDERED LIPID AND LIVERNP.JFRANKLIN ORDERED LIPID,CMP,CBCD,A1C,TSH,AND T4F Performed By: #### L 100.0100, L501.9985, L500.4050, L506.0400, L500.4100, L501.4700, L501.9520 ####[facility] [address] [place], [address] AST [Catalytic activity/Vol] 98 U/L High <=[address] [facility] Comment on above: Order Comment: DR.MH ALVAREZ ORDERED LIPID AND LIVERNP.JFRANKLIN ORDERED LIPID,CMP,CBCD,A1C,TSH,AND T4F Performed By: #### L 100.0100, L501.9985, L500.4050, L506.0400, L500.4100, L501.4700, L501.9520 ####[facility] [address] [place], [address] Bilirubin [Mass/Vol] 0.63 mg/dL Normal 0.00-1.30 [facility] Comment on above: Order Comment: DR.MH ALVAREZ ORDERED LIPID AND LIVERNP.KDRANKLIN ORDERED LIPID,CMP,CBCD,A1C,TSH,AND T4F Performed By: #### L 100.0100, L501.9985, L500.4050, L506.0400, L500.4100, L501.4700, L501.9520 ####[facility] [address] [place], [address] BUN/CRE 11.9 RATIO Normal 10-[address] [facility] Comment on above: Order Comment: DR.MH ALVAREZ ORDERED LIPID AND LIVERNP.KDRANKLIN ORDERED LIPID,CMP,CBCD,A1C,TSH,AND T4F Performed By: #### L 100.0100, L501.9985, L500.4050, L506.0400, L500.4100, L501.4700, L501.9520 ####[facility] [address] [place], [address] Calcium [Mass/Vol] 9.4 mg/dL Normal 7.6-11.0 [facility] Comment on above: Order Comment: DR.MH ALVAREZ ORDERED LIPID AND LIVERNP.JFRANKLIN ORDERED LIPID,CMP,CBCD,A1C,TSH,AND T4F Performed By: #### L 100.0100, L501.9985, L500.4050, L506.0400, L500.4100, L501.4700, L501.9520 ####[facility] [address] [place], [address] Chloride [Moles/Vol] 104 mmol/L Normal 98-108 [facility] Comment on above: Order Comment: DR.MH ALVAREZ ORDERED LIPID AND LIVERNP.JFRANKLIN ORDERED LIPID,CMP,CBCD,A1C,TSH,AND T4F Performed By: #### L 100.0100, L501.9985, L500.4050, L506.0400, L500.4100, L501.4700, L501.9520 ####[facility] [address] [place], [place], [phone] CO2 [Moles/Vol] 24.4 mmol/L Normal 21.0-32.[address] [facility] Comment on above: Order Comment: DR.MH ALVAREZ ORDERED LIPID AND LIVERNP.MICHAEL ORDERED LIPID,CMP,CBCD,A1C,TSH,AND T4F Performed By: #### L 100.0100, L501.9985, L500.4050, L506.0400, L500.4100, L501.4700, L501.9520 ####[facility] [address] [place], [place], [phone] Creatinine [Mass/Vol] 0.68 mg/dL Low 0.70-1.20 [facility] Comment on above: Order Comment: DR.MH ALVAREZ ORDERED LIPID AND LIVERNP.MICHAEL ORDERED LIPID,CMP,CBCD,A1C,TSH,AND T4F Performed By: #### L 100.0100, L501.9985, L500.4050, L506.0400, L500.4100, L501.4700, L501.9520 ####[facility] [address] [place], [place], [phone] GAP 11 Normal 5-[address] [facility] Comment on above: Order Comment: DR.MH ALVAREZ ORDERED LIPID AND LIVERNP.MICHAEL ORDERED LIPID,CMP,CBCD,A1C,TSH,AND T4F Performed By: #### L 100.0100, L501.9985, L500.4050, L506.0400, L500.4100, L501.4700, L501.9520 ####[facility] [address] [place], [address] GFR/1.73 sq M.predicted among non-blacks MDRD (S/P/Bld) [Vol rate/Area] 103 mL/min/{1.73_m2} Normal >[address] [facility] Comment on above: Order Comment: DR.MH ALVAREZ ORDERED LIPID AND LIVERNP.MICHAEL ORDERED LIPID,CMP,CBCD,A1C,TSH,AND T4F Result Comment: mL/m in/1.73m2 CKD-EPI Creatinine Equation (2020) Performed By: #### L 100.0100, L501.9985, L500.4050, L506.0400, L500.4100, L501.4700, L501.9520 ####[facility] [address] [place], [address] Globulin (S) [Mass/Vol] 2.9 g/dL Normal 2.2-4.2 [facility] Comment on above: Order Comment: DR.MH ALVAREZ ORDERED LIPID AND LIVERNP.MICHAEL ORDERED LIPID,CMP,CBCD,A1C,TSH,AND T4F Performed By: #### L 100.0100, L501.9985, L500.4050, L506.0400, L500.4100, L501.4700, L501.9520 ####[facility] [address] [place], [address] Glucose [Mass/Vol] 106 mg/dL High 70-99 [facility] Comment on above: Order Comment: DR.MH ALVAREZ ORDERED LIPID AND LIVERNP.MICHAEL ORDERED LIPID,CMP,CBCD,A1C,TSH,AND T4F Performed By: #### L 100.0100, L501.9985, L500.4050, L506.0400, L500.4100, L501.4700, L501.9520 ####[facility] [address] [place], [address] Potassium [Moles/Vol] 3.8 mmol/L Normal 3.3-5.1 [facility] Comment on above: Order Comment: DR.MH ALVAREZ ORDERED LIPID AND LIVERNP.MICHAEL ORDERED LIPID,CMP,CBCD,A1C,TSH,AND T4F Performed By: #### L 100.0100, L501.9985, L500.4050, L506.0400, L500.4100, L501.4700, L501.9520 ####[facility] [address] [place], [address] Sodium [Moles/Vol] 139 mmol/L Normal 133-145 [facility] Comment on above: Order Comment: DR.MH ALVAREZ ORDERED LIPID AND LIVERNP.MICHAEL ORDERED LIPID,CMP,CBCD,A1C,TSH,AND T4F Performed By: #### L 100.0100, L501.9985, L500.4050, L506.0400, L500.4100, L501.4700, L501.9520 ####[facility] [address] [place], [address] T PROT 6.7 g/dL Normal 5.9-8.[address] [facility] Comment on above: Order Comment: DR.MH ALVAREZ ORDERED LIPID AND LIVERNP.MICHAEL ORDERED LIPID,CMP,CBCD,A1C,TSH,AND T4F Performed By: #### L 100.0100, L501.9985, L500.4050, L506.0400, L500.4100, L501.4700, L501.9520 ####[facility] [address] [place], [address] Urea nitrogen [Mass/Vol] 8 mg/dL Normal 4-[address] [facility] Comment on above: Order Comment: DR.MH ALVAREZ ORDERED LIPID AND LIVERNP.MICHAEL ORDERED LIPID,CMP,CBCD,A1C,TSH,AND T4F Performed By: #### L 100.0100, L501.9985, L500.4050, L506.0400, L500.4100, L501.4700, L501.9520 ####[facility] [address] [place], [address] Eosinophil percentageOrdered By: Javier Morales on 09-10-2024 Eosinophils/100 WBC (Bld) 6.9 % High 0-[address] [facility] Erythrocyte distribution wid th ratioOrdered By: Javier Morales on 09-10-2024 Erythrocyte distribution width (RBC) [Ratio] 13.5 % 11.6-14.[address] [facility] Erythrocyte distribution wid th standard deviationOrdered By: Javier Morales on 09-10-2024 Erythrocyte distribution width (RBC) [Ratio] 45.9 fl High 35.1-43.[address] [facility] Glomerular filtration rate ( GFR) estimation/1.73 sq m using serum, plasma, or whole bOrdered By: Javier Morales on 09-10-2024 GFR/1.73 sq M.predicted among non-blacks MDRD (S/P/Bld) [Vol rate/Area] 103 mL/min/{1.73_m2} >[address] [facility] Comment on above: mL/min/1.73m2 CKD-EP I Creatinine Equation (2020) Hematocrit Auto (Bld) [Volum e fraction]Ordered By: Javier Morales on 09-10-2024 Hematocrit (Bld) [Volume fraction] 41.7 % 37-[address] [facility] Hemoglobin A1con 09-10-2024 HbA1c (Bld) [Mass fraction] 6.0 % High <=5.[address] [facility] Comment on above: Order Comment: DR.MH ALVAREZ ORDERED LIPID AND LIVERNP.MICHAEL ORDERED LIPID,CMP,CBCD,A1C,TSH,AND T4F Result Comment: Norm al < 5.7 % Prediabetic 5.7 - 6.4 % Diabetic >or= 6.5 % Please note range changes. Performed By: #### L 100.0100, L501.9985, L500.4050, L506.0400, L500.4100, L501.4700, L501.9520 ####[facility] [address] [place], [place], [phone] Hemoglobin A1c percentageOrd ered By: Javier Morales on 09-10-2024 HbA1c (Bld) [Mass fraction] 6.0 % High <5.[address] [facility] Comment on above: Normal < 5.7 % Predi abetic 5.7 - 6.4 % Diabetic >or= 6.5 % Please note range changes. Hemoglobin measurementOrdere d By: Javier Morales on 09-10-2024 Hemoglobin (Bld) [Mass/Vol] 13.8 g/dL 12.0-15.[address] [facility] Immature granulocytes/100 WB C Auto (Bld)Ordered By: Javier Morales on 09-10-2024 Immature granulocytes/100 WBC (Bld) 0.400 % 0.0-0.[address] [facility] Comment on above: IG% - Immature Granu locytes (promyelocytes, myelocytes and metamyelocytes) > 1% indicates that a LEFT SHIFT is Present. LDL calc ser/plasOrdered By: Javier Morales on 09-10-2024 Cholesterol in LDL [Mass/Vol] 75 mg/dL [facility] Comment on above: Jixlggsbes=614-044 m g/dL & Higher Hsyx=977 mg/dL or greater Laboratory - Chemistry and C hemistry - challengeOrdered By: Javier Morales on 09-10-2024 AST [Catalytic activity/Vol] 98 U/L High <[address] [facility] Lipid Profileon 09-10-2024 CHOL:HDL 3.[address] [facility] Comment on above: Order Comment: DR.MH ALVAREZ ORDERED LIPID AND LIVERNP.MICHAEL ORDERED LIPID,CMP,CBCD,A1C,TSH,AND T4F Performed By: #### L 100.0100, L501.9985, L500.4050, L506.0400, L500.4100, L501.4700, L501.9520 ####[facility] [address] [place], [place], [id number] Cholesterol [Mass/Vol] 125 mg/dL Normal <=200 [facility] Comment on above: Order Comment: DR.MH ALVAREZ ORDERED LIPID AND LIVERNP.MICHAEL ORDERED LIPID,CMP,CBCD,A1C,TSH,AND T4F Result Comment: Chol esterol level, Desirable <200 mg/dLBorderline high cholesterol 200-239 mg/dLHigh cholesterol >=240 mg/dLRecommendations of the NCEP Adult Treatment Panel for thefollowing risk-cutoff thresholds for the [place] Americanpopulation. Performed By: #### L 100.0100, L501.9985, L500.4050, L506.0400, L500.4100, L501.4700, L501.9520 ####[facility] [address] [place], [address] Cholesterol in HDL [Mass/Vol] 35 mg/dL Low [facility] Comment on above: Order Comment: DR.MH ALVAREZ ORDERED LIPID AND LIVERNP.JFRANKLIN ORDERED LIPID,CMP,CBCD,A1C,TSH,AND T4F Result Comment: [facility] Cholesterol Education Program (NCEP) guidelines:<40 mg/dL: Low HDL-cholesterol (major risk factor for CHD)>= 60 mg/dL: High HDL-cholesterol (negative risk factor forCHD)HDL-cholesterol is affected by a number of factors, e.g.smoking, exercise, hormones, sex and age. Performed By: #### L 100.0100, L501.9985, L500.4050, L506.0400, L500.4100, L501.4700, L501.9520 ####[facility] [address] [place], [address] Cholesterol in LDL [Mass/Vol] 75 mg/dL Normal [facility] Comment on above: Order Comment: DR.MH ALVAREZ ORDERED LIPID AND LIVERNP.KDRANKLDULCE ORDERED LIPID,CMP,CBCD,A1C,TSH,AND T4F Result Comment: Bord gfuief=230-461 mg/dL Higher Slaq=558 mg/dL or greater Performed By: #### L 100.0100, L501.9985, L500.4050, L506.0400, L500.4100, L501.4700, L501.9520 ####[facility] [address] [place], [address] Cholesterol in VLDL [Mass/Vol] 15 mg/dL Normal 5-[address] [facility] Comment on above: Order Comment: DR.MH ALVAREZ ORDERED LIPID AND LIVERNP.JFRANKLIN ORDERED LIPID,CMP,CBCD,A1C,TSH,AND T4F Performed By: #### L 100.0100, L501.9985, L500.4050, L506.0400, L500.4100, L501.4700, L501.9520 ####[facility] [id number] [place], [place], [id number] Triglyceride [Mass/Vol] 76 mg/dL Normal [facility] Comment on above: Order Comment: DR.MH ALVAREZ ORDERED LIPID AND LIVERNP.MICHAEL ORDERED LIPID,CMP,CBCD,A1C,TSH,AND T4F Result Comment: The drugs N-Acetylcysteine and Metamizole may falselydepress this assay.Normal range: <150 mg/dLBorderline High: 150-199 mg/dLHigh: 200-499 mg/dLVery High: >500 mg/dL Performed By: #### L 100.0100, L501.9985, L500.4050, L506.0400, L500.4100, L501.4700, L501.9520 ####[facility] [id number] [place], [place], [id number] MCV (mean corpuscular volume ) determinationOrdered By: Javier Morales on 09-10-2024 MCV (RBC) [Entitic vol] 93.3 fL 81-99 [facility] Mean corpuscular hemoglobin (MCH) determinationOrdered By: Javier Morales on 09-10-2024 MCH (RBC) [Entitic mass] 30.9 pg 27.0-32.[address] [facility] Mean corpuscular hemoglobin concentration (MCHC) determinationOrdered By: Javier Morales on 09-10-2024 MCHC (RBC) [Mass/Vol] 33.1 g/dL 32-36 [facility] Mean platelet volume determi nationOrdered By: Javier Morales on 09-10-2024 Platelet mean volume (Bld) [Entitic vol] 11.9 fL 6.2-12.[address] [facility] Monocyte percentageOrdered B y: Javier Morales on 09-10-2024 Monocytes/100 WBC (Bld) 4.0 % 0-10 [facility] Neutrophil percentageOrdered By: Javier Morales on 09-10-2024 Neutrophils/100 WBC (Bld) 76.9 % High 47-[address] [facility] No Panel InformationOrdered By: Javier Morales on 09-10-2024 98 U/L High <[address] [facility] Nucleated red blood cell per centageOrdered By: Javier Morales on 09-10-2024 Nucleated RBC/100 WBC (Bld) [Ratio] 0 % 0-[address] [facility] Platelet countOrdered By: Ann-Marie Morales on 09-10-2024 Platelets (Bld) [#/Vol] 216 10*3/uL 150-[address] [facility] Potassium measurement (mass/ volume)Ordered By: Javier Morales on 09-10-2024 Potassium (Unsp spec) [Mass/Vol] 3.8 mmol/L 3.3-5.[address] [facility] RBC Auto (Bld) [#/Vol]Ordere d By: Javier Morales on 09-10-2024 RBC (Bld) [#/Vol] 4.47 10*6/uL 4.2-5.4 [facility] Screening total cholesterol/ high density lipoprotein (HDL) cholesterol ratioOrdered By: Javier Morales on 09-10-2024 Cholesterol.total/Choles terol in HDL [Mass ratio] 3.60 {ratio} [facility] Serum creatinine measurement (mass/volume)Ordered By: Javier Morales on 09-10-2024 Creatinine [Mass/Vol] 0.68 mg/dL Low 0.70-1.20 [facility] Serum globulin measurementOr dered By: Javier Morales on 09-10-2024 Globulin (S) [Mass/Vol] 2.9 g/dL 2.2-4.2 [facility] Serum glucose measurement (m ass/volume)Ordered By: Javier Morales on 09-10-2024 Glucose [Mass/Vol] 106 mg/dL High 70-99 [facility] Serum or plasma alanine reynoso otransferase (ALT) measurementOrdered By: Javier Morales on 09-10-2024 ALT [Catalytic activity/Vol] 100 U/L High <[address] [facility] Serum or plasma albumin anish urement (mass/volume)Ordered By: Javier Morales on 09-10-2024 Albumin [Mass/Vol] 3.8 g/dL 3.5-5.0 [facility] Serum or plasma albumin/glob ulin mass ratioOrdered By: Javier Morales on 09-10-2024 Albumin/Globulin [Mass ratio] 1.3 {ratio} 0.9-2.[address] [facility] Serum or plasma alkaline brian sphatase measurementOrdered By: Javier Morales on 09-10-2024 ALP [Catalytic activity/Vol] 74 U/L 35-[address] [facility] Serum or plasma calcium anish urement (mass/volume)Ordered By: Javier Morales on 09-10-2024 Calcium [Mass/Vol] 9.4 mg/dL 7.6-11.0 [facility] Serum or plasma cholesterol in HDL measurement (mass/volume)Ordered By: Javier Morales on 09-10-2024 Cholesterol in HDL [Mass/Vol] 35 mg/dL Low >[address] [facility] Comment on above: National Cholesterol Education Program (NCEP) guidelines:<40 mg/dL: Low HDL-cholesterol (major risk factor for CHD)>= 60 mg/dL: High HDL-cholesterol (negative risk factor for CHD)HDL-cholesterol is affected by a number of factors, e.g. smoking, exercise, hormones, sex and age. Serum or plasma cholesterol measurement (mass/volume)Ordered By: Javier Morales on 09-10-2024 Cholesterol [Mass/Vol] 125 mg/dL <201 [facility] Comment on above: Cholesterol level, D esirable <200 mg/dLBorderline high cholesterol 200-239 mg/dLHigh cholesterol >=240 mg/dLRecommendations of the NCEP Adult Treatment Panel for the following risk-cutoff thresholds for the [place] population. Serum or plasma urea nitroge n measurement (mass/volume)Ordered By: Javier Morales on 09-10-2024 Urea nitrogen [Mass/Vol] 8 mg/dL 4-[address] [facility] Sodium levelOrdered By: Ethan Morales on 09-10-2024 Sodium [Moles/Vol] 139 mmol/L 133-145 [facility] T4 Free Directon 09-10-2024 T4 FREE DIRECT 0.80 ng/dL Normal 0.76-1.[address] [facility] Comment on above: Order Comment: DR.MH ALVAREZ ORDERED LIPID AND LIVERNP.MICHAEL ORDERED LIPID,CMP,CBCD,A1C,TSH,AND T4F Performed By: #### L 100.0100, L501.9985, L500.4050, L506.0400, L500.4100, L501.4700, L501.9520 ####[facility] [address] [place], [place], [id number] T4 freeOrdered By: Javier alvarez on 09-10-2024 Free T4 [Mass/Vol] 0.80 ng/dL 0.76-1.46 [facility] TSH DL <= 0.005 mIU/L QnOrde red By: Javier Morales on 09-10-2024 TSH Qn 7.450 uIU/mL High 0.300-4.[address] [facility] Thyroid Stim Hormone (TSH)on 09-10-2024 TSH 7.450 uIU/mL High 0.300-4.[address] [facility] Comment on above: Order Comment: DR.MH ALVAREZ ORDERED LIPID AND LIVERNP.MICHAEL ORDERED LIPID,CMP,CBCD,A1C,TSH,AND T4F Performed By: #### L 100.0100, L501.9985, L500.4050, L506.0400, L500.4100, L501.4700, L501.9520 ####[facility] [address] [place], [place], [address] Total proteinOrdered By: Lukasz Morales on 09-10-2024 Protein [Mass/Vol] 6.7 g/dL 5.9-8.4 [facility] Triglycerides measurementOrd ered By: Javier Morales on 09-10-2024 Triglyceride [Mass/Vol] 76 mg/dL <199 [facility] Comment on above: The drugs N-Acetylcy steine and Metamizole may falsely depress this assay. Normal range: <150 mg/dLBorderline High: 150-199 mg/dLHigh: 200-499 mg/dLVery High: >500 mg/dL White blood cell (WBC) count Ordered By: Javier Morales on 09-10-2024 WBC (Bld) [#/Vol] 6.8 10*3/uL 4.4-11.0 [facility] Breast imaging reportOrdered By: Melony Oscar on 06-20-2024 Study report [facility] Imaging Services [address] [place] [address] SCRN MAMM (CAD)W/SHANNAN BILAT MR#: [id number] Acct: [id number] Name: TAMARA JOSE Rep #: [id number] : 1970 F 53 From: Heather Oscar MD PCP: Blanquita Lim, ALEXA, PUBLICITY EXPERT-C Status: REG CLI Study:SCRN MAMM (CAD)W/SHANNAN BILAT Date of Exa m: 06/20/24 Exam# [id number] Ordering Dr: Blanquita Lim PUBLICITY EXPERT-C EXAM: SCRN MAMM (CAD)W/SHANNAN BILAT 06/20/2024 CLINICAL [...] be mailed to the patient. Reading Location: [id number] CC: [facility] PUBLICITY EXPERT-C Blanquita Lim ~ Customer Program Specialist: Signed [facility] SCRN MAMM (CAD)W/SHANNAN BILATo n 06-20-2024 SCRN MAMM (CAD)W/SHANNAN BILAT Normal [facility] Cardiovascular stress test r eportOrdered By: Vijay Mcclelland on 06-17-2024 Study report [facility] Cardiovascular Services [address] [place] [address] MR#: [id number] Acct: [id number] Name: TAMARA JOSE Rep #: [id number] : 1970 53 From: Vijay jiménez MD Primary Care: ALEXA Bob, PUBLICITY EXPERT-C Status: REG CLI Referring Dr: Javier Morales [...] for age This note was generated with [employer] software. It may contain incorrectwords, spelling, and punctuation that were not noted in checking the note beforesigning. 06/17/241444 Date _ Vijay Mcclelland MD CC: [facility] PUBLICITY EXPERT-C Blanquita Lim; Dr. Javier Morales MD ~ Date Dictated: 06/17/241441 Date Transcribed: 06/17/241441 Customer Program Specialist: NORA Signed [facility] Work Phone: Stress Reporton 06-17-2024 Stress Report Normal [facility] 12 Lead EKG performed by [facility] on 05-23-2024 12 Lead EKG performed by [facility] Normal [facility] Cardiology Visit Reporton Cardiology Visit Report Normal [facility] Coronary Angiography CTon Coronary Angiography CT Normal [facility] Limited Chest CT Cardiac Onl yon 03-24-[address] Cardiac Only Normal [facility] Microscopic method Nom (U)Or dered By: Zoraida Gaspar on 03-03-2023 Bacteria LM.HPF (Urine sed) [#/Area] Few Abnormal None /[facility] Interpretation and review of laboratory results Abnormal [facility] Leukocyte clumps LM.HPF (Urine sed) [#/Area] Few Abnormal None /HPF [facility] RBC LM.HPF (Urine sed) [#/Area] 51-100 Abnormal [facility] WBC LM.HPF (Urine sed) [#/Area] 51-100 Abnormal [facility] Urinalysis dipstick W Reflex Microscopic panel (U)on 03-03-2023 Bacteria, Urine Few Abnormal None [facility] Comment on above: Performed By: #### 5 7020-0 #### [facility] [address] [place] [address] RBC, Urine 51-100 Abnormal 0-5 [facility] Comment on above: Performed By: #### 5 7020-0 #### [facility] [address] [place] [address] WBC Clumps, Urine Few Abnormal None [facility] Comment on above: Performed By: #### 5 7020-0 #### [facility] [address] [place] [address] WBC, Urine 51-100 Abnormal 0-5 [facility] Comment on above: Performed By: #### 5 7020-0 #### [facility] ([facility] [address] [place] [address] Bilirubin Ql (U) Negative Negative mg/dL [facility] Clarity (U) Hazy Abnormal Clear [facility] Color (U) Light Yellow Abnormal Yellow [facility] Glucose Ql (U) Normal Normal mg/dL [facility] Hemoglobin Ql (U) 3+ Abnormal Negative eryth/mcL [facility] Interpretation and review of laboratory results Abnormal [facility] Ketones (U) [Mass/Vol] Negative Negat madyson mg/dL [facility] Leukocyte esterase Test strip Ql (U) 500 Abnormal Negative WBCs/mcL [facility] Nitrite Ql (U) Negative Negative [facility] pH (U) 7.5 [pH] 5.0 - 8.0 pH [facility] Protein (U) [Mass/Vol] 30 mg/dL Abnormal Negative Tr [facility] Specific gravity (U) [Rel density] 1.010 1.002 - 1.030 [facility] Urobilinogen (U) [Mass/Vol] Normal Normal mg/dL [facility] CMP with eGFRon 01-19-2023 AGE 52 years Normal [facility] Comment on above: Performed By: #### 2 88768 #### [facility],[address] [place] [address] Albumin [Mass/Vol] 3.6 g/dL Normal 3.4 - 5.0 [facility] Comment on above: Performed By: #### 2 45660 #### [facility],[address] [place] [address] Albumin/Globulin [Mass ratio] 1.0 {ratio} Normal 0.9 - 1.6 [facility] Comment on above: Performed By: #### 2 53389 #### [facility],[address] [place] [address] ALK PHOS 96 U/L Normal 46 - 116 [facility] Comment on above: Performed By: #### 2 27859 #### [facility],[address] [place] [address] 016[address] ALT [Catalytic activity/Vol] 54 U/L Normal 14 - 59 [facility] Comment on above: Performed By: #### 2 45024 #### [facility],[address] [place] [address] Anion gap [Moles/Vol] 13 mmol/L Normal 10 - 20 [facility] Comment on above: Performed By: #### 2 10700 #### [facility],[address] [place] [address]78 AST [Catalytic activity/Vol] 38 U/L Normal 13 - 39 [facility] Comment on above: Performed By: #### 2 48599 #### [facility],[address] [place] [address] B/C RATIO 12 ratio Normal 0 - 30 [facility] Comment on above: Performed By: #### 2 34295 #### [facility],[address] [place] [address]759 Bilirubin [Mass/Vol] 0.3 mg/dL Normal 0.2 - 1.0 [facility] Comment on above: Performed By: #### 2 40315 #### [facility],[address] [place] [address] Calcium [Mass/Vol] 8.8 mg/dL Normal 8.5 - 10.1 [facility] Comment on above: Performed By: #### 2 55348 #### [facility],[address] [place] [address]015 Chloride [Moles/Vol] 104 mmol/L Normal 98 - 107 [facility] Comment on above: Performed By: #### 2 30632 #### [facility],[address] [place] [address] CMP with eGFR Normal [facility] Comment on above: Result Comment: COMP REHENSIVE METABOLIC PANEL Performed By: #### 2 83882 #### [facility],[address] [place] [address] 42473 CO2 [Moles/Vol] 27.9 mmol/L Normal 21.0 - 32.0 [facility] Comment on above: Performed By: #### 2 24821 #### [facility],[address] [place] [address] Creatinine [Mass/Vol] 0.75 mg/dL Normal 0.55 - 1.02 [facility] Comment on above: Performed By: #### 2 13984 #### [facility],[address] [place] [address] 84265 GFR/1.73 sq M.predicted among non-blacks MDRD (S/P/Bld) [Vol rate/Area] mL/min/{1.73_m2} Normal 60 - 999 [facility] Comment on above: Performed By: #### 2 97078 #### [facility],[address] [place] [address] Result Comment: ACCO RDING TO THE NATIONAL KIDNEY DISEASE EDUCATION PROGRAM(NKDE), A NORMAL eGFR IS A VALUE GREATER THAN OR EQUAL TO 60 ML/MIN/1.73 SQ METERS. CHRONIC KIDNEY DISEASE: <60mL/MIN/1.73 SQ METERS KIDNEY FAILURE: <15mL/MIN/1.73 SQ METERS THIS TEST SHOULD ONLY BE USED FOR PATIENTS 18 YEARS OF AGE AND OLDER. Globulin (S) [Mass/Vol] 3.5 g/dL Normal 1.5 - 3.8 [facility] Comment on above: Performed By: #### 2 32458 #### [facility],[address] [place] [address]51 Glucose [Mass/Vol] 147 mg/dL High 74 - 106 [facility] Comment on above: Performed By: #### 2 69363 #### [facility],[address] [place] [address]276 Potassium [Moles/Vol] 3.7 mmol/L Normal 3.5 - 5.1 [facility] Comment on above: Performed By: #### 2 50351 #### [facility],[address] [place] [address]93 Protein [Mass/Vol] 7.1 g/dL Normal 6.4 - 8.2 [facility] Comment on above: Performed By: #### 2 64691 #### [facility],[address] [place] [address] 20839 Sodium [Moles/Vol] 141 mmol/L Normal 136 - 145 [facility] Comment on above: Performed By: #### 2 84363 #### [facility],[address] [place] [address] 04160 Urea nitrogen [Mass/Vol] 9 mg/dL Normal 7 - 18 [facility] Comment on above: Performed By: #### 2 08738 #### [facility],[address] [place] [address] 12808 T4-FREE (FREE THYROXINE)on Free T4 [Mass/Vol] 0.90 ng/dL Normal 0.76 - 1.46 [facility] Comment on above: Result Comment: P otential of falsely elevated results when biotin concentrations are > 10 ng/mL. Performed By: #### 2 06780 #### [facility],[address] [place] [address] 35787 TSHon 01-19-2023 TSH Qn 4.05 m[IU]/L High 0.35 - 3.74 [facility] Comment on above: Performed By: #### 2 58414 #### [facility],[address] [place] [address] 88599 HGB A1C [CCL]on 10-18-2022 HbA1c (Bld) [Mass fraction] 5.6 % Normal 4.3-5.6 [facility] Comment on above: Result Comment: Amer [place] Diabetes Association guidelines indicate that patients with HgbA1c in the range 5.7-6.4% are at increased risk for development of diabetes, and intervention by lifestyle modification may be beneficial. HgbA1c greater or equal to 6.5% is considered diagnostic of diabetes. Performed By: #### 2 54060 #### [facility],[address] [place] [address] 07280 Hemoglobin A0 114 mg/dL Normal [facility] Comment on above: Result Comment: eAG: (Estimated average glucose) is a calculated value from HgbA1c and is farm loan representative of the average blood glucose level in the last 2-3 month period. [facility] [employer] [address] [place] [address] Chris Hinojosa III, M.D. [id number] Performed By: #### 2 56975 #### [address] [address] T4-FREE (FREE THYROXINE)on 0 10-17-2022 Free T4 [Mass/Vol] 0.79 ng/dL Normal 0.76 - 1.46 [facility] Comment on above: Result Comment: P otential of falsely elevated results when biotin concentrations are > 10 ng/mL. Performed By: #### 2 44578 #### [address] [address] TSHon 10-17-2022 TSH Qn 5.46 m[IU]/L High 0.35 - 3.74 [facility] Comment on above: Performed By: #### 2 81001 #### [address] [address] [facility] Cytology Reporton 2022 [facility] Cytology Report . Pathology Reports Accession: Collected Date/Time: Received Date/Time: Pathologist: [id number] 07/21/2022 09:53 EDT 07/21/2022 18:00 EDT JOCY REA MD [facility] Cytology Report SPECIMEN: Specimen Description: Liquid Prep w/ HPV Specimen: Cervical/Endocervical Screening or Diagnostic: Screening RELEVANT HISTORY: LMP: menopausal [id number] SPECIMEN ADEQUACY: SATISFACTORY FOR EVALUATION Endocervical/Transformati onal zone component present INTERPRETATION/RESULTS: EPITHELIAL CELL ABNORMALITIES, [...] and evaluated with the assistance of the [employer] Test Imaging System. Pathology Reports Accession: Collected Date/Time: Received Date/Time: Pathologist: [id number] 07/21/2022 09:53 EDT 07/21/2022 18:00 EDT JOCY REA MD Electronically Signed by Pathology report verified by [facility] Screened by: PANTERA GRIFFIN Electronically signed by JOCY REA Sign-Out Date: 07/27/2022 11:59 Performing Lab: [facility], [address] [place] [address] Pathology Dept Disclaimer The Pap test is a screening test for cervical cancer. As evidenced by published data, it is subject to both inherent false negative and false positive results. Your patient's results should be interpreted in context with pertinent clinical history including gynecological examination. Normal [facility] ([place] HPVon 07-26-2022 HPV Interp Normal See Interp HPVN [facility] ([place] Comment on above: Order Comment: Order placed by AP_HPV_ORDER rule from [id number] Result Comment: High Risk HPV Typing: NEGATIVE [...] HPVN Performed By: #### H PV #### [place] [address] HPV Source Cervix Normal [facility] ([place]) Comment on above: Order Comment: Order placed by AP_HPV_ORDER rule from [id number] Performed By: #### H PV #### [place] [address] CBC + DIFFon 07-21-2022 Baso # 0.00 x10EE3/UL Normal 0.00 - 0.10 [facility] Comment on above: Performed By: #### 2 93764 #### [address] [address] Basophils/100 WBC (Bld) 0.9 % Normal 0.0 - 2.0 [facility] Comment on above: Performed By: #### 2 40616 #### [facility],[address] [place] [address]7668 CBC + DIFF Normal [facility] Comment on above: Result Comment: CBC- COMPLETE BLOOD COUNT Performed By: #### 2 73442 #### [address] [address] EO # 0.20 x10EE3/UL Normal 0.00 - 0.50 [facility] Comment on above: Performed By: #### 2 96676 #### [facility],[address] [place] [address] 28336 Eosinophils/100 WBC (Bld) 4.4 % Normal 0.0 - 7.0 [facility] Comment on above: Performed By: #### 2 36377 #### [address] [address] Erythrocyte distribution width (RBC) [Ratio] 13.3 % Normal 12.0 - 15.6 [facility] Comment on above: Performed By: #### 2 45125 #### [facility],[address] [place] [address] Hematocrit (Bld) [Volume fraction] 41.2 % Normal 34.0 - 46.0 [facility] Comment on above: Performed By: #### 2 82676 #### [facility],[address] [place] [address] Hemoglobin (Bld) [Mass/Vol] 14.1 g/dL Normal 12.0 - 16.0 [facility] Comment on above: Performed By: #### 2 08351 #### [facility],[address] [place] [address] Lymph # 1.50 x10EE3/UL Normal 0.80 - 2.80 [facility] Comment on above: Performed By: #### 2 89796 #### [facility],[address] [place] [address] Lymphocytes/100 WBC (Bld) 28.9 % Normal 20.0 - 45.0 [facility] Comment on above: Performed By: #### 2 61792 #### [facility],[address] [place], [place] [id number] MANUAL DIFF N/A Normal [facility] Comment on above: Performed By: #### 2 45578 #### [facility],[address] [place], [place] [id number] MCH (RBC) [Entitic mass] 31 pg Normal 27 - 33 [facility] Comment on above: Performed By: #### 2 60833 #### [facility],[address] [place], [place] [id number] MCHC 34 X10 3 Normal 32 - 36 [facility] Comment on above: Performed By: #### 2 41611 #### [facility],[address] [place], [place] [id number] MCV (RBC) [Entitic vol] 91 fL Normal 80 - 99 [facility] Comment on above: Performed By: #### 2 52181 #### [facility],[address] [place] [address] [place] # 0.50 x10EE3/UL Normal 0.20 - 1.00 [facility] Comment on above: Performed By: #### 2 43550 #### [facility],[address] [place] [address] 43705 MONOS % 9.5 % Normal 0.0 - 10.0 [facility] Comment on above: Performed By: #### 2 77847 #### [facility],[address] [place] [address] Morphology Michael (Bld) [Interp] N/A Normal [facility] Comment on above: Performed By: #### 2 24557 #### [facility],[address] [place] [address] Neut # 2.80 x10EE3/UL Normal 1.50 - 7.10 [facility] Comment on above: Performed By: #### 2 48314 #### [facility],[address] [place] [address] Neutrophils/100 WBC (Bld) 56.3 % Normal 46.0 - 76.0 [facility] Comment on above: Performed By: #### 2 87032 #### [facility],[address] [place] [address] PLATELET 242 x10EE3/UL Normal 150 - 450 [facility] Comment on above: Performed By: #### 2 41368 #### [facility],[address] [place] [address] Platelet mean volume (Bld) [Entitic vol] 9.8 fL Normal 6.6 - 10.5 [facility] Comment on above: Result Comment: AUTO MATED DIFFERENTIAL Performed By: #### 2 35390 #### [facility],[address] [place] [address] 06083 RBC 4.51 x 10EE6/UL Normal 4.10 - 5.30 [facility] Comment on above: Performed By: #### 2 77783 #### [facility],[address] [place] [address] 67821 WBC 5.1 x 10EE3/UL Normal 4.5 - 10.8 [facility] Comment on above: Performed By: #### 2 27917 #### [facility],[address] [place] [address] 63118 CMP with eGFRon 07-21-2022 AGE 51 years Normal [facility] Comment on above: Performed By: #### 2 41911 #### [facility],[address] [place] [address] 14878 Albumin [Mass/Vol] 4.3 g/dL Normal 3.4 - 5.0 [facility] Comment on above: Performed By: #### 2 42290 #### [facility],[address] [place] [address] 91002 Albumin/Globulin [Mass ratio] 1.3 {ratio} Normal 0.9 - 1.6 [facility] Comment on above: Performed By: #### 2 80238 #### [facility],[address] [place] [address] 57530 ALK PHOS 103 U/L Normal 46 - 116 [facility] Comment on above: Performed By: #### 2 10590 #### [facility],[address] [place] [address] 79049 ALT [Catalytic activity/Vol] 71 U/L High 14 - 59 [facility] Comment on above: Performed By: #### 2 54618 #### [facility],[address] [place] [address] 80223 Anion gap [Moles/Vol] 14 mmol/L Normal 10 - 20 [facility] Comment on above: Performed By: #### 2 [id number] #### [facility],[address] [place] [address] 59535 AST [Catalytic activity/Vol] 50 U/L High 13 - 39 [facility] Comment on above: Performed By: #### 2 [id number] #### [facility],[address] [place] [address] 36587 B/C RATIO 22 ratio Normal 0 - 30 [facility] Comment on above: Performed By: #### 2 92981 #### [facility],[address] [place] [address] 02681 Bilirubin [Mass/Vol] 0.4 mg/dL Normal 0.2 - 1.0 [facility] Comment on above: Performed By: #### 2 15449 #### [facility],[address] [place] [address] 39785 Calcium [Mass/Vol] 9.5 mg/dL Normal 8.5 - 10.1 [facility] Comment on above: Performed By: #### 2 26462 #### [facility],[address] [place] [address] 70194 Chloride [Moles/Vol] 106 mmol/L Normal 98 - 107 [facility] Comment on above: Performed By: #### 2 23723 #### [facility],[address] [place] [address] 40787 CMP with eGFR Normal [facility] Comment on above: Result Comment: COMP REHENSIVE METABOLIC PANEL Performed By: #### 2 05984 #### [facility],[address] [place] [address] 28746 CO2 [Moles/Vol] 30.3 mmol/L Normal 21.0 - 32.0 [facility] Comment on above: Performed By: #### 2 76273 #### [facility],[address] [place] [address] 97366 Creatinine [Mass/Vol] 0.87 mg/dL Normal 0.55 - 1.02 [facility] Comment on above: Performed By: #### 2 74417 #### [facility],[address] [place] [address] 28313 GFR/1.73 sq M.predicted among non-blacks MDRD (S/P/Bld) [Vol rate/Area] mL/min/{1.73_m2} Normal 60 - 999 [facility] Comment on above: Performed By: #### 2 25828 #### [facility],[address] [place] [address] 79934 Result Comment: ACCO RDING TO THE NATIONAL KIDNEY DISEASE EDUCATION PROGRAM(NKDE), A NORMAL eGFR IS A VALUE GREATER THAN OR EQUAL TO 60 ML/MIN/1.73 SQ METERS. CHRONIC KIDNEY DISEASE: <60mL/MIN/1.73 SQ METERS KIDNEY FAILURE: <15mL/MIN/1.73 SQ METERS THIS TEST SHOULD ONLY BE USED FOR PATIENTS 18 YEARS OF AGE AND OLDER. Globulin (S) [Mass/Vol] 3.3 g/dL Normal 1.5 - 3.8 [facility] Comment on above: Performed By: #### 2 73843 #### [address] [address] Glucose [Mass/Vol] 109 mg/dL High 74 - 106 [facility] Comment on above: Performed By: #### 2 67551 #### [facility],[address] [place] [address] 79799 Potassium [Moles/Vol] 4.1 mmol/L Normal 3.5 - 5.1 [facility] Comment on above: Performed By: #### 2 29204 #### [facility],[address] [place] [address] 67979 Protein [Mass/Vol] 7.6 g/dL Normal 6.4 - 8.2 [facility] Comment on above: Performed By: #### 2 60405 #### [facility],[address] [place] [address] 57590 Sodium [Moles/Vol] 146 mmol/L High 136 - 145 [facility] Comment on above: Performed By: #### 2 12083 #### [facility],[address] [place] [address] 99875 Urea nitrogen [Mass/Vol] 19 mg/dL High 7 - 18 [facility] Comment on above: Performed By: #### 2 36109 #### [facility],[address] [place] [address] 43304 LIPID PROFILEon 07-21-2022 Cholesterol [Mass/Vol] 185 mg/dL Normal 0 - 240 [facility] Comment on above: Performed By: #### 2 70705 #### [facility],[address] [place] [address] 25196 Cholesterol in HDL [Mass/Vol] 67 mg/dL High 40 - 60 [facility] Comment on above: Performed By: #### 2 49714 #### [facility],[address] [place] [address] 71315 Cholesterol in LDL [Mass/Vol] 107 mg/dL Normal 0 - 129 [facility] Comment on above: Performed By: #### 2 48551 #### [facility],[address] [place] [address] 93092 Cholesterol.total/Choles terol in HDL [Mass ratio] 2.8 {ratio} Normal 0.0 - 5.0 [facility] Comment on above: Performed By: #### 2 86065 #### [facility],[address] [place] [address] 16376 Lipid 1996 panel Normal [facility] Comment on above: Result Comment: LIPI D PROFILE Performed By: #### 2 69901 #### [facility],[address] [place] [address] 97381 Triglyceride [Mass/Vol] 55 mg/dL Normal 0 - 150 [facility] Comment on above: Performed By: #### 2 25431 #### [facility],[address] [place] [address] 20415 T4-FREE (FREE THYROXINE)on 0 07-21-2022 Free T4 [Mass/Vol] 0.62 ng/dL Low 0.76 - 1.46 [facility] Comment on above: Result Comment: P otential of falsely elevated results when biotin concentrations are > 10 ng/mL. Performed By: #### 2 78947 #### [facility],[address] [place] [address] 04462 TSHon 07-21-2022 TSH Qn 10.50 m[IU]/L High 0.35 - 3.74 [facility] Comment on above: Performed By: #### 2 12605 #### [facility],[address] [place], [place] [id number] VITAMIN D, 25 HYDROXYon 07-02 VitD 25.70 ng/mL Low 30.00 - 100 [facility] Comment on above: Result Comment: 25-O [...] D2 Not Established Performed By: #### 2 37089 #### [facility],[address] [place] [address] 07878 Vital Signs Date Time Vital Sign Value Performing Clinician Facility 12-24-2024 11:19040 Body height 175.26 cm Blanquita LOPEZ Work Phone: [facility] 12-24-2024 11:19040 Body mass index (BMI) [Ratio] 25.4 kg/m2 Blanquita FREEDMANC Work Phone: [facility] 12-24-2024 11:19040 Body weight 78.01 kg Blanquita FREEDMANC Work Phone: [facility] 12-24-2024 11:19-040 Diastolic blood pressure 80 mm[Hg] Blanquita FREEDMANC Work Phone: 2(566)072-198407 [place] [address] 12-24-2024 11:19-040 Heart rate 111 /min Blanquita FREEDMANC Work Phone: 7(782)330-558607 [place] [address] 12-24-2024 11:19-0400 SaO2% (BldA) [Mass fraction] 96 % Blanquita Lim [employer] Work Phone: 2(027)284-502220 [place] [address] 12-24-2024 11:19-0400 Systolic blood pressure 117 mm[Hg] Blanquita Lim [employer] Work Phone: 4(835)241-250920 [place] [address] 12-04-2024 11:05-0400 Diastolic blood pressure 75 mm[Hg] Blanquita Lim [employer] Work Phone: 9(455)299-422920 [place] [address] 12-04-2024 11:05-0400 Heart rate 99 /min Blanquita Lim [employer] Work Phone: 2(684)730-060620 [place] [address] 12-04-2024 11:05-0400 Respiratory rate 18 /min Blanquita Lim [employer] Work Phone: 4(988)062-161320 [place] [address] 12-04-2024 11:05-0400 SaO2% (BldA) [Mass fraction] 96 % Blanquita Lim [employer] Work Phone: 8(887)138-943320 [place] [address] 12-04-2024 11:05-0400 Systolic blood pressure 100 mm[Hg] Blanquita Lim [employer] Work Phone: 1(973)134-879420 [place] [address] 12-04-2024 08:52-0400 Body mass index (BMI) [Ratio] 26.6 kg/m2 Blanquita Lim [employer] Work Phone: 7(874)768-017620 [place] [address] 12-04-2024 08:52-0400 Body temperature 97.7 [degF] Blanquita Lim [employer] Work Phone: 5(050)490-285920 [place] [address] 12-04-2024 08:52-0400 Body weight 81.64 kg Blanquita Lim [employer] Work Phone: 7(350)430-964920 [place] [address] 11-05-2024 13:01-0400 Body height 172.72 cm Blanquita Lim [employer] Work Phone: 9(459)849-414020 [place] [address] 11-05-2024 13:01-0400 Body mass index (BMI) [Ratio] 29.2 kg/m2 Blanquita Lim [employer] Work Phone: 5(443)964-076120 [place] [address] 11-05-2024 13:01-0400 Body weight 87.08 kg Blanquita Lim [employer] Work Phone: 6(217)886-144320 [place] [address] 11-05-2024 13:01-0400 Diastolic blood pressure 76 mm[Hg] Blanquita Lim [employer] Work Phone: 7(222)260-341220 [place] [address] 11-05-2024 13:01-0400 Heart rate 109 /min Blanquita Lim [employer] Work Phone: 6(688)345-713420 [place] [address] 11-05-2024 13:01-0400 SaO2% (BldA) [Mass fraction] 93 % Blanquita Lim [employer] Work Phone: 8(768)791-956420 [place] [address] 11-05-2024 13:01-0400 Systolic blood pressure 112 mm[Hg] Blanquita Lim [employer] Work Phone: 4(247)981-520320 [place] [address] 10-17-2024 11:33-0400 Body height 172.72 cm Blanquita Lim [employer] Work Phone: 4(813)608-175020 [place] [address] 10-17-2024 11:33-0400 Body mass index (BMI) [Ratio] 30.3 kg/m2 Blanquita Lim [employer] Work Phone: 4(961)520-709220 [place] [address] 10-17-2024 11:33-0400 Body weight 90.43 kg Blanquita Lim [employer] Work Phone: 9(926)035-455920 [place] [address] 10-17-2024 11:33-0400 Diastolic blood pressure 75 mm[Hg] Blanquita Lim [employer] Work Phone: 9(785)499-472720 [place] [address] 10-17-2024 11:33-0400 Heart rate 101 /min Blanquita Lim [employer] Work Phone: 6(898)352-250920 [place] [address] 10-17-2024 11:33-0400 Respiratory rate 15 /min Blanquita Lim [employer] Work Phone: 8(652)994-967120 [place] [address] 10-17-2024 11:33-0400 SaO2% (BldA) [Mass fraction] 93 % Blanquita Lim [employer] Work Phone: 2(570)780-253420 [place] [address] 10-17-2024 11:33-0400 Systolic blood pressure 122 mm[Hg] Blanquita Lim [employer] Work Phone: 0(771)251-543320 [place] [address] 10-16-2024 15:51-0400 Body temperature 98.7 [degF] Blanquita Lim [employer] Work Phone: 5(491)046-664720 [place] [address] 10-16-2024 15:51-0400 Diastolic blood pressure 88 mm[Hg] Blanquita Lim [employer] Work Phone: 2(884)062-539420 [place] [address] 10-16-2024 15:51-0400 Heart rate 105 /min Blanquita Lim [employer] Work Phone: 8(532)990-520320 [place] [address] 10-16-2024 15:51-0400 Respiratory rate 18 /min Blanquita Lim [employer] Work Phone: 3(631)008-761220 [place] [address] 10-16-2024 15:51-0400 SaO2% (BldA) [Mass fraction] 97 % Blanquita Lim [employer] Work Phone: 9(167)489-345720 [place] [address] 10-16-2024 15:51-0400 Systolic blood pressure 135 mm[Hg] Blanquita Lim [employer] Work Phone: 4(625)084-134520 [place] [address] 10-16-2024 13:51-0400 Body height 172.72 cm Blanquita Lim [employer] Work Phone: 0(491)915-121120 [place] [address] 10-16-2024 13:51-0400 Body mass index (BMI) [Ratio] 31 kg/m2 Blanquita Lim [employer] Work Phone: 2(555)348-932920 [place] [address] 10-16-2024 13:51-0400 Body temperature 98.7 [degF] Blanquita Lim [employer] Work Phone: 2(369)546-435720 [place] [address] 10-16-2024 13:51-0400 Body weight 92.53 kg Blanquita Lim [employer] Work Phone: 0(289)944-274020 [place] [address] 10-16-2024 13:51-0400 Diastolic blood pressure 88 mm[Hg] Blanquita Lim [employer] Work Phone: 5(576)241-018720 [place] [address] 10-16-2024 13:51-0400 Heart rate 105 /min Blanquita Lim [employer] Work Phone: 3(873)315-769707 [place] [address] 10-16-2024 13:51-0400 Respiratory rate 18 /min Blanquita Lim [employer] Work Phone: 9(026)223-795920 [place] [address] 10-16-2024 13:51-0400 SaO2% (BldA) [Mass fraction] 97 % Blanquita Lim [employer] Work Phone: 9(900)677-278720 [place] [address] 10-16-2024 13:51-0400 Systolic blood pressure 135 mm[Hg] Blanquita Lim [employer] Work Phone: 4(587)307-295520 [place] [address] 10-08-2024 08:13-0400 Body temperature 98.5 [degF] Blanquita Lim [employer] Work Phone: 7(329)264-550620 [place] [address] 10-08-2024 08:13-0400 Diastolic blood pressure 92 mm[Hg] Blanquita Lim [employer] Work Phone: 8(991)899-198920 [place] [address] 10-08-2024 08:13-0400 Heart rate 99 /min Blanquita Lim [employer] Work Phone: 7(830)257-006420 [place] [address] 10-08-2024 08:13-0400 Respiratory rate 16 /min Blanquita Lim [employer] Work Phone: 9(588)903-154720 [place] [address] 10-08-2024 08:13-0400 SaO2% (BldA) [Mass fraction] 95 % Blanquita Lim [employer] Work Phone: 9(832)263-403320 [place] [address] 10-08-2024 08:13-0400 Systolic blood pressure 142 mm[Hg] Blanquita Lim [employer] Work Phone: 2(330)406-194920 [place] [address] 10-06-2024 18:44-0400 Body height 172.72 cm Blanquita Lim [employer] Work Phone: 3(456)588-588120 [place] [address] 10-06-2024 18:44-0400 Body mass index (BMI) [Ratio] 30 kg/m2 Blanquita Lim [employer] Work Phone: 7(415)442-091020 [place] [address] 10-06-2024 18:44-0400 Body weight 89.7 kg Blanquita Lim [employer] Work Phone: 6(761)159-544307 [place] [address] 10-06-2024 16:57-0400 Body temperature 98.1 [degF] Blanquita Lim [employer] Work Phone: 4(169)997-762920 [place] [address] 10-06-2024 16:57-0400 Diastolic blood pressure 74 mm[Hg] Blanquita Lim [employer] Work Phone: 8(624)956-304120 [place] [address] 10-06-2024 16:57-0400 Heart rate 78 /min Blanquita Lim [employer] Work Phone: 0(556)082-378020 [place] [address] 10-06-2024 16:57-0400 Respiratory rate 15 /min Blanquita Lim [employer] Work Phone: 7(539)619-108420 [place] [address] 10-06-2024 16:57-0400 SaO2% (BldA) [Mass fraction] 99 % Blanquita Lim [employer] Work Phone: 7(034)447-181020 [place] [address] 10-06-2024 16:57-0400 Systolic blood pressure 112 mm[Hg] Blanquita Lim [employer] Work Phone: 8(667)674-555220 [place] [address] 10-06-2024 09:10-0400 Body height 172.72 cm Blanquita Lim [employer] Work Phone: 5(586)584-989420 [place] [address] 10-06-2024 09:10-0400 Body mass index (BMI) [Ratio] 30 kg/m2 Blanquita Lim [employer] Work Phone: 2(938)607-397220 [place] [address] 10-06-2024 09:10-0400 Body weight 89.72 kg Blanquita Lim [employer] Work Phone: 7(101)517-848420 [place] [address] 05-23-2024 13:02-0500 Body height 172.72 cm Blanquita Lim [employer] Work Phone: 4(707)797-769620 [place] [address] 05-23-2024 13:02-0500 Body mass index (BMI) [Ratio] 30.7 kg/m2 Blanquita Lim [employer] Work Phone: 3(425)502-072920 [place] [address] 05-23-2024 13:02-0500 Body weight 91.62 kg Blanquita Raphael [employer]ERT[employer]C Work Phone: [facility] 05-23-2024 13:02-0500 Diastolic blood pressure 82 mm[Hg] Blanquita Raphael [employer] EX[employer]ERT[employer]C Work Phone: [facility] 05-23-2024 13:02-0500 Heart rate 70 /min Blanquita Raphael [employer]C Work Phone: [facility] 05-23-2024 13:02-0500 Respiratory rate 18 /min Blanquita Raphael [employer]C Work Phone: [facility] 05-23-2024 13:02-0500 SaO2% (BldA) [Mass fraction] 98 % Blanquita Raphael [employer]C Work Phone: [facility] 05-23-2024 13:02-0500 Systolic blood pressure 121 mm[Hg] Blanquitahelena Lim [employer] EXPERT-C Work Phone: [facility] 08-20-2023 16:48-0400 Body height 172.7 cm Stayci Natterer DO Work Phone: [employer] 08-20-2023 16:48-0400 Body mass index (BMI) [Ratio] 29.19 kg/m2 Stayci Natterer DO Work Phone: [facility] 08-20-2023 16:48-0400 Body temperature 98.2 [degF] Stayci Natterer DO Work Phone: [employer] 08-20-2023 16:48-0400 Body weight 87.09 kg Stayci Natterer DO Work Phone: [employer] 08-20-2023 16:48-0400 Diastolic blood pressure 105 mm[Hg] Stayci Natterer DO Work Phone: [employer] 08-20-2023 16:48-0400 Heart rate 86 /min Stayci Natterer DO Work Phone: [employer] 08-20-2023 16:48-0400 Respiratory rate 18 /min Stayci Natterer DO Work Phone: [employer] 08-20-2023 16:48-0400 SaO2% (BldA) [Mass fraction] 100 % Stayci Natterer DO Work Phone: [employer] 08-20-2023 16:48-0400 Systolic blood pressure 156 mm[Hg] Stayci Natterer DO Work Phone: [employer] 03-03-2023 17:24-0500 Body height 175.3 cm Christi Morgan MD Work Phone: [employer] 03-03-2023 17:24-0500 Body mass index (BMI) [Ratio] 28.35 kg/m2 Christi Morgan MD Work Phone: [employer] 03-03-2023 17:24-0500 Body temperature 97.39 [degF] Christi Morgan MD Work Phone: [employer] 03-03-2023 17:24-0500 Body weight 87.09 kg Christi Morgan MD Work Phone: [employer] 03-03-2023 17:24-0500 Diastolic blood pressure 94 mm[Hg] Christi Morgan MD Work Phone: [employer] 03-03-2023 17:24-0500 Heart rate 94 /min Christi Morgan MD Work Phone: [employer] 03-03-2023 17:24-0500 Respiratory rate 16 /min Christi Morgan MD Work Phone: [employer] 03-03-2023 17:24-0500 SaO2% (BldA) [Mass fraction] 97 % Christi Morgan MD Work Phone: [employer] 03-03-2023 17:24-0500 Systolic blood pressure 140 mm[Hg] Christi Morgan MD Work Phone: [employer] Encounters Encounter Date Encounter Type Care Provider Facility Start: 02-11-2025 [facility] [place] Facility :[facility] Start: 02-09-2025 ambulatory Mackenzie Cotof Facility :[facility] Start: 01-29-2025 ambulatory [facility] Facility :[facility] Start: 12-24-2024 End: 12-24-2024 Dr. Alexx Castillo MD -[facility] Work Phone: Start: 12-24-2024 End: 12-24-2024 ambulatory Blanquita Raphael [employer]C Work Phone: -[facility] Start: 12-05-2024 ambulatory Blanquita Balderrama in [facility] Facility:[facility] Start: 12-04-2024 End: 12-04-2024 ambulatory Blanquita Raphael [employer]C Work Phone: -Cat Scan [facility] Start: 12-04-2024 End: 12-04-2024 Dr. Alexx Castillo MD -Cat Scan [facility] Work Phone: Start: 12-04-2024 End: 12-04-2024 ambulatory Blanquita Lim [facility] Facility:[facility] Start: 11-28-2024 Registered Recurring Mackenzie Hernandez PUBLICITY EXPERT-C -Physical Therapy Work Phone: Start: 11-24-2024 End: 11-24-2024 ambulatory Blanquita Lim [employer]C Work Phone: -[facility] [place] Start: 11-24-2024 End: 11-24-2024 Patient encounter procedure Mackenzie Hernandez PUBLIC[employer] EXPERT-C -[facility] [place] Work Phone: Start: 11-24-2024 End: 11-24-2024 Mackenzie Chicalisa PUBLICITY EXPERT-C -[facility] [place] Work Phone: Start: 11-24-2024 End: 11-24-2024 ambulatory Mackenzie Hernandez Facility:[facility] Start: 11-05-2024 End: 11-05-[address] Alexx Castillo MD -[facility] Work Phone: Start: 11-05-2024 End: 11-05-2024 Dr. Alexx Castillo MD -[facility] Work Phone: Start: 11-05-2024 End: 11-05-2024 ambulatory Blanquita Raphael [employer] EXPERT-C Work Phone: -[facility] Start: 10-30-2024 End: 10-30-2024 Patient encounter procedure Christi Shore PUBLICITY EXPERT-C -Laboratory Work Phone: Start: 10-30-2024 End: 10-30-2024 Christi Shore PUBLICITY EXPERT-C -Laboratory Work Phone: Start: 10-30-2024 End: 10-30-2024 ambulatory [facility] Facility:[facility] Start: 10-28-2024 End: 10-28-2024 ambulatory Blanquita Lim [employer]C Work Phone: -[facility] Start: 10-28-2024 End: 10-28-2024 Patient encounter procedure Mahesh Stauffer PUBLICITY EXPERT-C -[facility] Start: 10-28-2024 End: 10-28-2024 Mahesh Stauffer PUBLICITY EXPERT-C -[facility] Start: 10-28-2024 End: 10-28-2024 ambulatory [facility] Facility:[facility] Start: 10-23-2024 End: 10-23-2024 ambulatory Blanquita Lim [employer]C Work Phone: -[facility] Start: 10-23-2024 End: 10-23-2024 Patient encounter procedure Mackenzie Hernandez PUBLICITY EXPERT-C -[facility] Start: 10-23-2024 End: 10-23-2024 Mackenzie Hernandez PUBLICITY EXPERT-C -[facility] Start: 10-23-2024 End: 10-23-2024 ambulatory [facility] Facility:[facility] Start: 10-17-2024 End: 10-17-2024 Patient encounter procedure Christi Shore PUBLICITY EXPERT-C -[facility] Work Phone: Start: 10-17-2024 End: 10-17-2024 Christi hSore PUBLICITY EXPERT-C -[facility] Work Phone: Start: 10-17-2024 End: 10-17-2024 ambulatory Blanquita Lim [employer]C Work Phone: -[facility] Start: 10-16-2024 End: 10-16-2024 Dr. Mulugeta Chaney DO -Emergency Department Work Phone: Start: 10-16-2024 End: 10-16-2024 Emergency department patient visit Blanquita Lim [employer]C Work Phone: -Emergency Department Work Phone: Start: 10-13-2024 End: 10-13-2024 ambulatory Blanquita Lim [employer]C Work Phone: -Laboratory Start: 10-13-2024 End: 10-13-2024 Patient encounter procedure Mackenzie Hernandez PUBLICITY EXPERT-C -Laboratory Work Phone: Start: 10-13-2024 End: 10-13-2024 Mackenzie Hernandez PUBLICITY EXPERT-C -Laboratory Work Phone: Start: 10-13-2024 End: 10-13-2024 ambulatory [facility] Facility:[facility] Start: 10-10-2024 End: 10-10-2024 ambulatory Blanquita Lim [employer]-C Work Phone: -Laboratory Start: 10-10-2024 End: 10-10-2024 Patient encounter procedure Mackenzie Hernandez PUBLICITY EXPERT-C -Laboratory Work Phone: Start: 10-10-2024 End: 10-10-2024 Mackenzie Hernandez PUBLICITY EXPERT-C -Laboratory Work Phone: Start: 10-10-2024 End: 10-10-2024 ambulatory [facility] Facility:[facility] Start: 10-08-2024 Non-patient / Non-visit Dr. Barbara Leal [facility] Work Phone: Start: 10-08-2024 Dr. Leo frank [facility] Work Phone: Start: 10-07-2024 Non-patient / Non-visit Dr. Barbara Leal -[place] [facility] Work Phone: Start: 10-07-2024 Dr. Leo frank DO [facility] Work Phone: Start: 10-06-2024 End: 10-08-2024 Evaluation and management of inpatient Dr. Estrella Gross MD -Medical Surgical 3 Work Phone: Start: 10-06-2024 End: 10-08-2024 ambulatory Blanquita Lim [facility] Facility:[facility] Start: 10-06-2024 Non-patient / Non-visit Dr. Estrella benavides MD -[place] [facility] Work Phone: Start: 10-06-2024 End: 10-08-2024 Dr. Leo Leal DO -[facility] Surgical 3 Work Phone: Start: 09-10-2024 End: 09-10-2024 ambulatory Blanquita Lim [employer]C Work Phone: [facility] Work Phone: Start: 09-10-2024 End: 09-10-2024 Patient encounter procedure [facility] Blanquita Lim PUBLICITY EXPERT-C -[facility] [place] Start: 09-10-2024 End: 09-10-2024 [facility] Blanquita Lim PUBLICITY EXPERT-C -[facility] [place] Start: 09-10-2024 End: 09-10-2024 ambulatory Blanquita Lim C Facility:[facility] Start: 06-20-2024 End: 06-20-2024 ambulatory Blanquitahelena Lim [employer] EXPERT-C Work Phone: [facility] Work Phone: Start: 06-20-2024 End: 06-20-2024 Patient encounter procedure [facility] Blanquita Lim PUBLICITY EXPERT-C -Outpatient Breast Imaging Work Phone: Start: 06-20-2024 End: 06-20-2024 ambulatory Blanquita Lim C Facility:[facility] Start: 06-17-2024 ambulatory [facility]anquita Balderrama [facility] [facility] Start: 06-17-2024 Non-patient / Non-visit Dr. Geneva Mcclelland MD -[facility] Start: 06-13-2024 End: 06-13-2024 ambulatory Blanquita Lim [employer] Work Phone: [facility] Work Phone: Start: 06-13-2024 End: 06-13-[address] Javier Morales MD -[facility] Work Phone: Start: 06-13-2024 End: 06-13-2024 ambulatory Blanquitahelena Lim [facility] Facility:[facility] Start: 05-23-2024 End: 05-23-[address] Javier Morales MD -[facility] Work Phone: Start: 05-23-2024 End: 05-23-2024 ambulatory Blanquitahelena Lim [facility] Facility:[facility] Start: 03-24-2024 ambulatory Blanquita Balderrama in [facility] Facility:[facility] Start: 03-24-2024 Non-patient / Non-visit Dr. Patricia LIM -[facility] Start: 03-24-2024 End: 03-24-2024 Patient encounter procedure [facility] Blanquita Lim PUBLICITY EXPERT-C -Cat Scan, [facility] Work Phone: Start: 03-24-2024 End: 03-24-[facility] Start: 08-20-2023 End: 08-20-2023 Emergency department patient visit ADITHYA SULLIVAN [facility] Start: 08-20-2023 End: 08-20-2023 Emergency department patient visit [employer] Work Phone: [facility] Emergency Room Comment on above: Face pain (Primary D x) Start: 08-20-2023 End: 08-20-2023 Evaluation and management of inpatient [employer] Nat[employer] DO Work Phone: [facility] Start: 08-15-2023 ambulatory ADITHYA SULLIVAN [facility] Start: 08-14-2023 End: 08-14-2023 Emergency department patient visit VITA POOLE [facility] Start: 06-18-2023 End: 06-18-[address] [facility] Work Phone: Start: 06-18-2023 End: 06-18-2023 Patient encounter procedure [facility]-Outpatient Breast Imaging Work Phone: Start: 03-03-2023 End: 03-03-2023 Emergency department patient visit ADITHYA SULLIVAN [facility] Start: 03-03-2023 End: 03-03-2023 Emergency department patient visit Christi Morgan MD Work Phone: [facility] Comment on above: Acute cystitis witho ut hematuria (Primary Dx) Start: 03-03-2023 End: 03-03-2023 Evaluation and management of inpatient Christi Morgan MD Work Phone: [facility] Start: 01-19-2023 End: 01-19-2023 ambulatory [facility] Start: 10-17-2022 End: 10-17-2022 ambulatory [facility] Start: 07-21-2022 End: 07-21-2022 ambulatory [facility] Start: 07-21-2022 Encounter for gynecological examination (general) (routine) without abnormal findings [facility] Procedures Date Procedure Procedure Detail Performing Clinician Start: 12-04-2024 Benzodiazepine measu rement, urine Blanquita Lim [employer]C Work Phone: Start: 12-04-2024 Cocaine measurement, urine Blanquita Lim [employer] Work Phone: Start: 12-04-2024 Methadone measurement, urine Blanquita Lim [employer]C Work Phone: Start: 12-04-2024 Myoglobin measurement, urine Blanquita Lim [employer] Work Phone: Start: 09-04-2025 Urine cannabinoid measurement Blanquita Lim [employer] Work Phone: Start: 12-04-2024 Urine opiate measurement Blanquita Lim [employer] Work Phone: Start: 12-04-2024 Ultrasound elastography of liver Blanquita Lim [employer]C Work Phone: Start: 12-04-2024 Blanquita sherwood PUBLIC[employer] EXPERT-C Work Phone: Start: 12-04-2024 Albumin/Globulin ratio Blanquita Lim [employer]C Work Phone: Start: 12-04-2024 [id number] measurement Blanquita Lim [employer] EX[employer]ERT-C Work Phone: Start: 12-04-2024 Blood count smear mc rscp w/mnl difrntl wbc count Blanquita Lim [employer]C Work Phone: Start: 12-04-2024 Calculation of inter national normalized ratio Blanquita Lim [employer]C Work Phone: Start: 12-04-2024 Estimated creatinine clearance Blanquita Lim [employer] EX[employer]C Work Phone: Start: 12-04-2024 Iadna hepatitis c qu ant [employer] legal secretary Blanquita Lim [employer] EXP[employer]C Work Phone: Start: 12-04-2024 Immunoglobulin M measurement Blanquita Lim [employer] EXP[employer]C Work Phone: Start: 12-04-2024 Mean corpuscular hem oglobin concentration determination Blanquita Lim [employer] Work Phone: Start: 12-04-2024 Nucleated red blood cell count procedure Blanquita Lim [employer]C Work Phone: Start: 12-04-2024 Platelet mean volume determination Blanquita Lim [employer] Work Phone: Start: 12-04-2024 Procedure Blanquita sherwood [employer]-C Work Phone: Start: 12-04-2024 Total cholesterol:HD L ratio measurement Blanquita Lim [employer] Work Phone: Start: 12-04-2024 Vitamin D, 25-hydrox y measurement Blanquita Lim [employer] EXP[employer]-C Work Phone: Start: 11-24-2024 Blood count smear mc rscp w/mnl difrntl wbc count Blanquita Lim [employer] EXP[employer]C Work Phone: Start: 11-24-2024 Mean corpuscular hem oglobin concentration determination Blanquita Lim [employer] EXP[employer]-C Work Phone: Start: 11-24-2024 Nucleated red blood cell count procedure Blanquita Lim [employer] EXP[employer]C Work Phone: Start: 11-24-2024 Platelet mean volume determination Blanquita Lim [employer] EXP[employer]-C Work Phone: Start: 10-30-2024 Procedure Blanquita sherwood PUBLIC[employer] EXPERT-C Work Phone: Comment on above: Test Ordered: [id number] Enhanced Liver Fibrosis (ELF)ELF(TM) Score 12.75 [H ] BN Reference Range: <9.80ELF(TM) Score Interpretation:Risk cut-offs to assess the likelihood of progressionto cirrhosis and liver-related clinical events within3.9 years following baseline ELF score (IQR: 14.0-22.4months)*: Lower risk < 9.80 Mid risk 9.80 - 11.29 Higher risk >11.29Note: The ELF(TM) Score is a unitless numerical value.*Almas SA, Alireza CABRALES, Elio T, et al. Selonsertibfor patients with bridging fibrosis or compensatedcirrhosis due to OSBORNE: Results from randomized phaseIII STELLAR trials. J Hepatol. 2020 Sep;73(1):26-39.Performed at: - [facility] [id number] Director: Last Thomson MD, Phone: [phone] at: - [facility] [id number] Director: Kevin Prasad PhD, Phone: [phone] Start: 10-28-2024 Thyroglobulin antibo dy measurement Blanquita Lim PUBLICITY EXPERT-C Work Phone: Comment on above: Thyroglobulin Antibo dy measured by [employer] MarketsMethodologyIt should be noted that the presence of thyroglobulinantibodies may not be pathogenic nor diagnostic, especiallyat very low levels. The assay delineator has found thatfour percent of individuals without evidence of thyroiddisease or autoimmunity will have positive TgAb levels upto 4 IU/mL.Performed at: [facility] [address] [id number] Director: Kevin Prasad PhD, Phone: [phone] Start: 10-23-2024 Measurement of Borre pb burgdorferi antibody Blanquita Lim PUBLICITY EXPERT-C Work Phone: Comment on above: Lyme antibodies not detected. Reflex testing is notindicated.No laboratory evidence of infection with B. burgdorferi(Lyme disease). Negative results may occur in patientsrecently infected (less than or equal to 14 days) with B.burgdorferi. If recent infection is suspected, repeattesting on a new sample collected in 7 to 14 days isrecommended. Start: 10-23-2024 FERMÍN measurement Blanquita Lim PUBLICITY EXPERT-C Work Phone: Comment on above: Performed at: [facility] [address] [id number] Director: Kevin Prasad PhD, Phone: [phone] Start: 10-23-2024 Antibody measurement Randall Lim PUBLICITY EXPERT-C Work Phone: Comment on above: The atypical pANCA p attern has been observed in asignificant percentage of patients with ulcerative colitis,primary sclerosing cholangitis and autoimmune hepatitis. Start: 10-23-2024 Antibody to centrome re measurement Blanquita Lim PUBLICITY EXPERT-C Work Phone: Comment on above: Test not performed Start: 10-23-2024 Antibody to extracta ble nuclear antigen measurement Blanquita Lim PUBLIC[employer] EXPERT-C Work Phone: Comment on above: Test not performed Start: 10-23-2024 Antibody to MARLEN-1 measurement Blanquita Lim PUBLICITY EXPERT-C Work Phone: Comment on above: Test not performed Start: 10-23-2024 Antibody to lupus La protein measurement Blanquita Lim PUBLICITY EXPERT-C Work Phone: Comment on above: Test not performed Start: 10-23-2024 Antibody to SS-A measurement Blanquita Lim PUBLIC[employer] EXPERT-C Work Phone: Comment on above: Test not performed Start: 10-23-2024 Autoantibody measurement Blanquita Lim [employer] EXP[employer]-C Work Phone: Comment on above: Test not performed Start: 10-23-2024 Calculation of inter national normalized ratio Blanquita Lim [employer] EXPERT-C Work Phone: Start: 10-23-2024 Ceruloplasmin measurement Blanquita Lim PUBLICITY EXPERT-C Work Phone: Start: 10-23-2024 Hepatitis A virus an tibody, total measurement Blanquita Lim PUBLIC[employer] EXPERT-C Work Phone: Comment on above: Comment: The [...] HAVtotal antibody results to IgM (e.g., panel #[id number] HAVAntibody w/ Rfx).Performed at: [facility] [place] [id number] Director: Kevin Prasad PhD, Phone: [phone] Start: 10-23-2024 PAIL BAILER antibody measurement Blanquita Lim PUBLICITY EXPERT-C Work Phone: Comment on above: Test not performed Start: 10-23-2024 Lactate dehydrogenase ldh Blanquita Lim PUBLICITY EXPERT-C Work Phone: Start: 10-23-2024 Total iron binding c apacity measurement Blanquita Lim [employer] EXP[employer]-C Work Phone: Start: 10-16-2024 X-ray of chest, PA a nd lateral views Blanquita Lim PUBLICITY EXPERT-C Work Phone: Start: 10-16-2024 Blood count smear mc rscp w/mnl difrntl wbc count Blanquita Lim [employer] EXP[employer]C Work Phone: Start: 10-16-2024 Estimated creatinine clearance Blanquita Lim [employer] EXPERT-C Work Phone: Start: 10-16-2024 Mean corpuscular hem oglobin concentration determination Blanquita Lim [employer] EXPERT-C Work Phone: Start: 10-16-2024 Nucleated red blood cell count procedure Blanquita FREEDMANC Work Phone: Start: 10-16-2024 Platelet mean volume determination Blanquita FREEDMANC Work Phone: Start: 10-13-2024 Lactate dehydrogenase ldh Blanquita FREEDMANC Work Phone: Start: 10-10-2024 Creatine kinase MM i soenzyme measurement Blanquita Lim [employer] EXPERT-C Work Phone: Start: 10-10-2024 Lactate dehydrogenase ldh Blanquita FREEDMANC Work Phone: Start: 10-07-2024 Blood count smear mc rscp w/mnl difrntl wbc count Blanquita Lim NP-C Work Phone: Start: 10-07-2024 Calculation of inter national normalized ratio Blanquita FREEDMANC Work Phone: Start: 10-07-2024 Estimated creatinine clearance Blanquita Lim NP-C Work Phone: Start: 10-07-2024 Mean corpuscular hem oglobin concentration determination Blaqnuita LOPEZ Work Phone: Start: 10-07-2024 Nucleated red blood cell count procedure Blanquita Lim NP-C Work Phone: Start: 10-07-2024 Platelet mean volume determination Blanquita LOPEZ Work Phone: Start: 10-06-2024 Hepatitis A virus an tibody, IgM type Blanquita LOPEZ Work Phone: Comment on above: A negative anti-HAV IgM result suggests no recent orcurrent HAV infection. Start: 10-06-2024 Hepatitis B core ant ibody measurement, IgM type Blanquita FREEDMANC Work Phone: Start: 10-06-2024 Hepatitis C antibody measurement Blanquita LOPEZ Work Phone: Start: 10-06-2024 SARS-CoV-2, Influenz a & RSV (PCR) Blanquita Lim PUBLICITY EXPERT-C Work Phone: Start: 10-06-2024 Urine culture Blanquita keith [employer] EXPERT-C Work Phone: Start: 10-06-2024 Blanquita sherwood PUBLICITY EXPERT-C Work Phone: Start: 10-06-2024 Ultrasonography of abdomen Blanquita Lim [employer] EXPERT-C Work Phone: Start: 10-06-2024 Urine microscopy: red cells Blanquita Lim [employer] EXP[employer]-C Work Phone: Start: 10-06-2024 Urnls dip stick/tabl et reagent auto microscopy Blanquita Lim [employer] EXPERT-C Work Phone: Start: 10-06-2024 Estimated creatinine clearance Blanquita Lim PUBLICITY EXPERT-C Work Phone: Start: 10-06-2024 Triacylglycerol lipa se measurement Blanquita Lim [employer] EXP[employer]-C Work Phone: Start: 10-06-2024 Computed tomography of abdomen and pelvis with intravenous contrast Blanquita Lim PUBLIC[employer] EXPERT-C Work Phone: Start: 09-10-2024 Blood count smear mc rscp w/mnl difrntl wbc count Blanquita Lim [employer] EXPERT-C Work Phone: Start: 09-10-2024 Mean corpuscular hem oglobin concentration determination Blanquita Lim [employer] EXPERT-C Work Phone: Start: 09-10-2024 Nucleated red blood cell count procedure Blanquita Lim PUBLICITY EXPERT-C Work Phone: Start: 09-10-2024 Platelet mean volume determination Blanquita Lim [employer] EXP[employer]-C Work Phone: Start: 09-10-2024 Total cholesterol:HD L ratio measurement Blanquita Lim [employer] EXPERT-C Work Phone: Start: 06-20-2024 Screening mammography Phani Lim PUBLICITY EXPERT-C Work Phone: Start: 05-23-2024 Evaluation of diagno stic study results Blanquita Lim [employer] EXPERT-C Work Phone: Start: 03-24-2024 CT angiography of co ronary arteries Blanquita Lim NP-C Work Phone: Start: 06-18-2023 Screening mammography Start: 03-03-2023 Urnls dip stick/tabl et reagent auto microscopy Christi Morgan MD Work Phone: Plan of Treatment Date Care Activity Detail Author Start: 12-29-2024 -Physical Therapy Work Phone: Start: 12-24-2024 End: 12-24-2024 -[facility] Work Phone: Start: 12-04-2024 Biopsy liver needle percutaneous [facility] Start: 12-04-2024 Catheterization of vein [facility] Start: 12-04-2024 Oxygen therapy [facility] Start: 12-04-2024 Patient discharge [facility] Start: 12-04-2024 Vital signs measurements [facility] Start: 12-04-2024 Following clinical pathway protocol [facility] Start: 10-28-[address] [facility] Start: 10-23-2024 Measurement of Borrelia burgdorferi antibody [facility] Start: 10-16-[address] [facility] Start: 10-08-2024 Patient discharge [facility] Start: 10-08-[address] [facility] Start: 10-07-2024 Care planning and problem solving actions [facility] Start: 10-07-2024 Prothrombin time [facility] Start: 10-07-2024 Thyroid stimulating hormone measurement [facility] Start: 10-06-2024 Following clinical pathway protocol [facility] Start: 10-06-2024 Assessment of risk of venous thromboembolism [facility] Start: 10-06-2024 Inhalation therapy procedure [facility] Start: 10-06-2024 Insertion of catheter into peripheral vein [facility] Start: 10-06-2024 Measuring intake and output [facility] Start: 10-06-2024 Providing care according to standard [facility] Start: 10-06-2024 Provision of activity privileges [facility] Start: 10-06-[address] [facility] Start: 10-06-2024 Verification routine [facility] Start: 10-06-2024 Admission procedure [facility] Start: 10-06-2024 Bacteria identified in Urine by Culture Urine Culture [facility] Start: 10-06-[address] [facility] Start: 12-02-2023 Influenza vaccination Influenza Vaccine (Season Ended) [facility] Start: 08-20-2023 Hypertension/CHF/CAD Annual BMP Blood Test Hypertension/CHF/CAD Annual BMP Blood Test [facility] Start: 03-03-2023 Adolescent depression screening assessment Depression Screening [facility] Start: 03-03-2023 Hepatitis C screening Hepatitis C Screening [facility] Start: 03-03-2023 HIV screening HIV Screening [facility] Start: 03-03-2023 Lipid panel Cholesterol Screening (Lipid Panel) [facility] Start: 03-03-2023 Screening for malignant neoplasm of breast Breast Cancer Screening [facility] Start: 03-03-2023 Screening for malignant neoplasm of colon Colorectal Cancer Screening: Colonoscopy [facility] Start: 03-03-2023 Social Influencers of Health Screening Social Influencers of Health Screening [facility] Start: 12-01-2022 COVID-19 Vaccine ( season) COVID-19 Vaccine ( season) [facility] Start: 12-01-2022 Influenza vaccination Influenza Vaccine (#1) [facility] Start: 09-28-2019 Zoster Vaccines (1 of 2) Zoster Vaccines (1 of 2) [facility] Start: 1990 Screening for malignant neoplasm of cervix Cervical Cancer Screening: Pap Smear [facility] Start: 1988 DTaP,Tdap,and Td Vaccines (1 - Tdap) DTaP,Tdap,and Td Vaccines (1 - Tdap) [facility] Start: 1988 Hepatitis B Vaccines (1 of 3 - 19+ 3-dose series) Hepatitis B Vaccines (1 of 3 - 19+ 3-dose series) [facility] Start: 03-29-1970 COVID-19 Vaccine (#1) COVID-19 Vaccine (#1) [facility] Start: 1969 Hepatitis B Vaccines (1 of 3 - 3-dose series) Hepatitis B Vaccines (1 of 3 - 3-dose series) [facility] Start: 1969 Screening for malignant neoplasm of breast Breast Cancer Screening [facility] Alanine aminotransfe rase [Enzymatic activity/volume] in Serum or Plasma [facility] Albumin [Mass/volume ] in Serum or Plasma [facility] Alkaline phosphatase [Enzymatic activity/volume] in Serum or Plasma [facility] [id number]. tumor marker [Units/volume] in Serum or Plasma [facility] Anion gap in Serum o r Plasma [facility] Bilirubin, total measurement [facility] BUN/Creatinine ratio [facility] C reactive protein [Mass/volume] in Serum or Plasma [facility] C reactive protein [Mass/volume] in Serum or Plasma [facility] Calcium [Mass/volume ] in Serum or Plasma [facility] Carbon dioxide, tota l [Moles/volume] in Central venous blood [facility] Ceruloplasmin [Mass/volume] in Serum or Plasma [facility] Comprehensive metabo lic 1999 panel - Serum or Plasma [facility] metabo lic 1999 panel - Serum or Plasma [facility] Creatine kinase [Enz ymatic activity/volume] in Serum or Plasma [facility] Creatinine [Mass/vol ume] in Serum or Plasma [facility] Creatinine [Mass/vol ume] in Urine collected for unspecified duration [facility] Cytoplasmic ANCA Screen [facility] Drugs identified in Urine by Screen method [facility] Erythrocyte mean corpuscular volume determination [facility] Ferritin [Mass/volum e] in Serum or Plasma [facility] Folate [Moles/volume ] in Serum or Plasma [facility] Gamma glutamyl trans ferase measurement [facility] Glucose [Mass/volume ] in Serum or Plasma [facility] Hematocrit [Volume Fraction] of Blood [facility] Hemoglobin [Mass/vol ume] in Blood [facility] Hemoglobin A1c/Hemoglobin.total in Blood [facility] Hepatic function panel [facility] Hepatic function panel [facility] Hepatitis A virus Ab [Presence] in Serum [facility] Hepatitis A virus Ig M Ab [Presence] in Serum [facility] Hepatitis B core ant ibody measurement, IgM type [facility] Hepatitis B surface antigen measurement [facility] Hepatitis B virus co re Ab [Presence] in Serum [facility] Hepatitis B virus menchaca rface Ab [Presence] in Serum [facility] Hepatitis C antibody measurement [facility] Hepatitis C virus RN A assay [facility] IgA [Mass/volume] in Serum or Plasma [facility] Immunoglobulin measurement [facility] INR in Blood by Coagulation assay [facility] Iron and Iron bindin g capacity panel - Serum or Plasma [facility] Lactate dehydrogenas e measurement [facility] Lactate dehydrogenas e measurement [facility] Lactate dehydrogenas e measurement [facility] Lactic acid measurement [facility] Leukocytes [#/volume ] in Blood [facility] Lipid 1995 panel - S sara or Plasma [facility] Lipid 1995 panel - S sara or Plasma [facility] Liver stiffness by US.transient elastography [facility] Mean corpuscular hemoglobin concentration determination [facility] Mean corpuscular hemoglobin determination [facility] Measurement of renal function [facility] Microalbumin [Mass/v olume] in Urine [facility] Mitochondria Ab [Pre sence] in Serum [facility] Myoglobin [Mass/volu me] in Urine [facility] Neutrophil count [facility] Neutrophil percent differential count [facility] Osmolality of Urine [facility] Patient Education [facility] Work Phone: Patient referral [facility] Work Phone: Platelets [#/volume] in Blood [facility] Potassium measurement [facility] Procedure [facility] Protein/Creatinine [ Ratio] in Urine [facility] Prothrombin time [facility] Prothrombin time [facility] Prothrombin time [facility] Red blood cell count [facility] Red cell distributio n width determination [facility] Serum chloride measurement [facility] Serum immunofixation [facility] Smooth muscle Ab [Presence] in Serum [facility] Smooth muscle Ab [Presence] in Serum [facility] Sodium measurement [facility] T4 free measurement [facility] Thyroglobulin antibo dy measurement [facility] Thyroid stimulating hormone measurement [facility] Thyroid stimulating hormone measurement [facility] Thyroperoxidase Ab [Units/volume] in Serum or Plasma [facility] Tissue transglutamin ase IgA Ab [Units/volume] in Serum [facility] Total protein measurement [facility] Urea nitrogen [Mass/volume] in Serum or Plasma [facility] Urinalysis complete panel - Urine [facility] Urine culture [facility] Vitamin B12 measurement [facility] Vitamin D, 25-hydrox y measurement [facility] Payers Date Payer Category Payer Self-pay 2024 Unknown [id number] 2023 Medicaid [employer] [employer] [facility] [place] [id number] 2023-Present [address] [address] [place] [address] [id number]. [id number] 2023 Unknown [id number] 1970 Unknown [id number] 2.16.840.1.619790.3.579.2.651 1970 Unknown [id number] 2.16.840.1.302356.3.579.2.651 1969 Unknown [id number] 2.16.840.1.280694.3.579.2.651 1969 Unknown [id number] 2.16.840.1.468290.3.579.2.651 1969 Unknown [id number] 2.16.840.1.947490.3.579.2.651 1969 Unknown [id number] 2.16.840.1.599496.3.579.2.651 1969 Unknown [id number] 2.16.840.1.390223.3.579.2.1143 Unknown [id number] Unknown [id number] Unknown [employer] [id number] Unknown [id number] 2.16.840.1.633872.3.579.2.462 Unknown [id number] 2.16.840.1.988736.3.579.2.462 Unknown [id number] 2.16.840.1.829720.3.579.2.462 Unknown [id number] 2.16.840.1.974273.3.579.2.462 Unknown [id number] 2.16.840.1.964003.3.579.2.462 Unknown [id number] 2.16.840.1.695532.3.579.2.462 Unknown [id number] 2.16840.1.238870.3.579.2.462 Unknown [id number] 2.16840.1.065673.3.579.2.462 Unknown [id number] 2.840.1.269572.3.579.2.462 Unknown [id number] 2.840.1.429329.3.579.2.462 Unknown [id number] 2.840.1.312198.3.579.2.462 Unknown [id number] 2.840.1.270647.3.579.2.462 Unknown [id number] 2.840.1.989430.3.579.2.462 Unknown [id number] 2.16840.1.750162.3.579.2.462 Unknown [id number] 2.16840.1.381759.3.579.2.462 Unknown [id number] 2.16840.1.146012.3.579.2.462 Unknown [id number] 2.16840.1.786711.3.579.2.462 Unknown [id number] 2.16840.1.600641.3.579.2.462 Unknown [id number] 2.16.840.1.087443.3.579.2.462 Unknown [id number] 2.16840.1.059906.3.579.2.462 Unknown [id number] 2.16.840.1.452741.3.579.2.462 Unknown [id number] 2.16.840.1.601828.3.579.2.462 Unknown [id number] 2.16.840.1.090672.3.579.2.462 Unknown [id number] 2.16.840.1.808454.3.579.2.462 Unknown [id number] 2.16.840.1.277370.3.579.2.462 Unknown [id number] 2.16.840.1.829898.3.579.2.462 Unknown [id number] 2.16.840.1.485997.3.579.2.462 Unknown [id number] 2.16.840.1.654649.3.579.2.462 Social History Date Type Detail Facility Start: 03-03-2023 End: 12-04-2024 Tobacco smoking status UTIS Never smoked tobacco [facility] Start: 03-03-2023 Tobacco use and exposure Smokeless tobacco non-user [facility] Start: 03-03-2023 End: 08-20-2023 Alcohol intake Current drinker of alcohol (finding) [facility] Start: 03-03-2023 Alcohol Comment occassionally [facility] Start: 1970 Sex Assigned At Not on file [facility] Gender identity Not on file [facility] Start: 1970 Sex Assigned At Female W [facility] Start: 06-24-2024 End: 06-27-2024 Sex Female (finding) [facility] Medical Equipment Procedure Code Equipment Code Equipment Origin al Text Equipment Identifier Dates Colonoscopy ()[id number] [facility] Start: 10-11-2023 Goals Date Patient Goal Desired Activity /State Functional Status Date Assessment Result Facility 10-08-2024 Functional status Ambulates [facility] Work Phone: Mental Status Date Assessment Result Facility 12-04-2024 Cognitive function Awake [facility] Work Phone: 10-16-2024 Cognitive function Awake;Alert;A ppropriate;Fol lows Commands [facility] Work Phone: 10-08-2024 Cognitive function Voice/Name [facility] Work Phone: Clinical Notes 03-03-2023 to 12-08-2024 Note Date & Type Note Facility 12-08-2024 Radiology Diagnostic study note [facility] 12-04-2024 Radiology Diagnostic study note [facility] 10-16-2024 Radiology Diagnostic study note [facility] Imaging Services [address] [place] [address] Chest PA and Lateral MR#: [id number] Acct: [id number] Name: TAMARA JOSE Rep #: [id number] : 1970 F 54 From: Mick Machado MD PCP: ALEXA Bob, PUBLICITY EXPERT-C Status: REG ER Study:Chest PA and Lateral Date of Exam: 10/16/24 Exam# [id number] Ordering Dr: Suzanna Calzada PROCEDURE: CHEST PA AND LATERAL 10/16/2024 [...] at the left lung base. Reading Location: [facility] CC: Bishnu PUBLICITY EXPERT-C Blanquita Lim; BRIAN Acosta ~ Customer Program Specialist: Signed [facility] 10-08-2024 Discharge summary Note Date/Time October 08, 2024 8:21a m [facility] Medical Records Department [address] [place] [address] Instructions for Home/Discharge Instructions 10/08/24816 MR#: [id number] Acct: [id number] Name: TAMARA JOSE Rep #:[id number] : 1970 54 From: Leo Leal DO PCP: ALEXA Bob, PUBLICITY EXPERT-C Statu s:ADM IN Discharge Instructions Diet Discharge [...] Reason for Your Visit: Rhabdomyolysis Attending Provider: Leo Leal Primary Care Provider: Blanquita Lim Consulting [...] QHS Referrals / Follow Up: Blanquita Lim, PUBLICITY EXPERT-C [Primary Care Provider] - In 1 Week (You will need your liver function tests redrawn, a BMP, and a CPK drawn) Disposition Disposition (needs filled in before D/C Order can be placed): Home, Self Care 10/08/24 08<Electronically signed by Leo Leal DO>Leo Leal DO CC: ALEXA PUBLICITY EXPERT-C Blanquita Lim; Dr. Estrella Gross MD ~ Signed [facility] Work Phone: 1(238) 374-576307-09-2025 Discharge summary [facility] Medical Records Department [address] [place] [address] Instructions for Home/Discharge Instructions 10/08/2417 MR#: [id number] Acct: [id number] Name: TAMARA JOSE Rep #:[id number] : 1970 54 From: Leo Leal DO PCP: ALEXA Bob, PUBLICITY EXPERT-C Statu s:ADM IN Discharge Instructions Diet Discharge [...] Reason for Your Visit: Rhabdomyolysis Attending Provider: Leo Leal Primary Care Provider: Blanquita Lim Consulting [...] QHS Referrals / Follow Up: Blanquita Lim, PUBLICITY EXPERT-C [Primary Care Provider] - In 1 Week (You will need your liver function tests redrawn, a BMP, and a CPK drawn) Disposition Disposition (needs filled in before D/C Order can be placed): Home, Self Care 10/08/24 Eli21Leo Leal DO CC: ALEXA PUBLICITY EXPERT-C Blanquita Lim; Dr. Estrella Gross MD ~ Signed [facility]07-09-2025 [facility] Progress note Author Leo Leal [facility] Note Date/Time October 07, 2024 4:41p m [facility] Medical Records Department [address] [place] [address] Progress Note - Hospitalist 10/07/24 1633 MR#: [id number] Acct: [id number] Name: TAMARA JOSE Rep #:[id number] : 1970 54 From: Leo Leal DO PCP: ALEXA Bob, PUBLICITY EXPERTJasvir Statu s:ADM IN Location: [facility] [id number] Reason for Visit Reason for Visit: Diagnoses [...] 16:00 10/07/24 16:00 10/07/24 16:00 10/07/24 16:10/07/24 16:10/07/24 16:00 Oxygen Delivery Method Room Air [...] (Auto) 64.4, Lymph % (Auto) 12.4 L, [place] % (Auto) 6.9, Eos % (Auto) 15.2 [...] 102 H, Calcium 8.0, Total Bilirubin 0.50, CIV181 H, ALT 283 H, Alkaline Phosphatase 46, Lactate Dehydrogenase 963 H, Total Creatine Kinase 3084 H, Total Protein 4.9 L, Albumin 2.8 L, Globulin 2.1 L, Albumin/Globulin Ratio 1.3, TSH 7.560 H Micro: Microbiology 10/06/24 09:55 Urine, Clean Catch Urine Culture - Preliminary GNR lactose underwriting consultant 10/06/24 09:55 Mucosa - Nose SARS-CoV-2, Influenza [...] 35 minutes Charges/Coding Visit Charges Inpatient E&M: 14100 Subs Hosp L2 10/07/24 1641 <Electronically signed by Leo Leal DO> Cosigner Signature (if applicable): CC: ~ Signed [facility] Work Phone: 1(225) 572-378307-08-2025 Progress note [facility] Medical Records Department [address] [place] [address] Progress Note - Hospitalist 10/07/24 1633 MR#: [id number] Acct: [id number] Name: TAMARA JOSE Rep #:[id number] : 1970 54 From: Leo Leal DO PCP: Blanquita Lim Bishnu, PUBLICITY EXPERT-C Statu s:ADM IN Location: [facility] [id number] Reason for Visit Reason for Visit: Diagnoses [...] (Auto) 64.4, Lymph % (Auto) 12.4 L, [place] % (Auto) 6.9, Eos % (Auto) 15.2 H, Baso % (Auto) 0.7, Absolute Neuts (auto)3.7, Absolute Lymphs (auto) 0.70 L, Nucleated RBC % 0, PT 15.7 H, INR 1.2, Olwpsf005, Potassium 3.3, Chloride 108, Carbon Dioxide 23.0, Anion Gap 8, BUN 6, Creatinine 0.45 L, EstimCreat Clear Calc 165.51, Est GFR (MDRD) Non-Af 114, BUN/Creatinine Ratio 13.1, Glucose 102 H, Calcium 8.0, Total Bilirubin 0.50, RUM172 H, ALT 283 H, Alkaline Phosphatase 46, Lactate Dehydrogenase 963 H, Total Creatine Kinase 3084 H, Total Protein 4.9 L, Albumin 2.8 L, Globulin 2.1 L, Albumin/Globulin Ratio 1.3, TSH 7.560 H Micro: Microbiology 10/06/24 09:55 Urine, Clean Catch Urine Culture - Preliminary GNR lactose underwriting consultant 10/06/24 09:55 Mucosa - Nose SARS-CoV-2, Influenza [...] 35 minutes Charges/Coding Visit Charges Inpatient E&M: 68259 Subs Hosp L2 10/07/24 1641 Cosigner Signature (if applicable): CC: ~ Signed [facility]07-07-2025 Discharge summary Author Will Silveira [facility] Note Date/Time October 06, 2024 6:05p m [facility] Medical Records Department [address] [place] [address] Emergency Department Summary 10/06/24 MR#: [id number] Acct: [id number] Name: TAMARA JOSE Ivan Rep #:[id number] : 1970 54 From: Will carrasquillo DO PCP: ALEXA Bob, PUBLICITY EXPERT-C Statu s:REG ER Location: ED HPI History [...] intact Psych: Cooperative, appropriate mood and affect [facility] Medical History Hyperlipidemia Wears hearing [...] 75.3 H Lymph % (Auto) 7.6 L [place] % (Auto) 5.9 Eos % (Auto) 10.4 [...] Sl. Cloudy Urine pH 6.0 Ur Specific [place] 1.020 Urine Protein 30 H Urine Glucose [...] in the abdomen or pelvis. Reading Location: [facility] Abdomen Ultrasound 10/06/24 12:09 IMPRESSION: Multiple gallstones. Fatty infiltration of the liver. Reading Location: [place] [address] Discharge Plan Triage Chief Complaint: Abd Pain [...] Care Provider: Blanquita Lim Referrals: Blanquita Lim, PUBLICITY EXPERT-C [Primary Care Provider] - 3-5 Days Print Language: [place] Citizen Disposition Disposition: Home, Self Care What to do if you have Problems For any increased pain, shortness of breath, bleeding, nausea or vomiting, chestpain, or any unexpected problems, contact your Primary Care Provider. Call [facility] ([phone]) or report to the closest Emergency Room. Call 911 if necessary. 10/06/241804 <Electronically signed by Will Silveira DO> Cosigner Signature (if applicable): CC: LAEXA PUBLICITY EXPERT-C Blanquita Lim ~ Signed [facility] Work Phone: 1(552) 472-190407-07-2025 History and physical note Author Estrella Gross [facility] Note Date/Time October 06, 2024 5:48p m [facility] Medical Records Department [address] [place] [address] H&P Exam - Hospitalist 10/06/24 1727 MR#: [id number] Acct: [id number] Name: TAMARA JOSE Rep #:[id number] : 1970 54 From: Estrella Gross MD PCP: ALEXA Bob, PUBLICITY EXPERT-C Statu s:REG ER Location: ED HPI - General General Date of Admission: 10/06/24 Date of Service: 10/06/24 Chief Complaint: Weakness, fatigue, aching muscles HPI Narrative TAMARA JOSE, is a 54-year-old female history of GERD, hypertension, hyperlipidemia who presented to [facility] ED 10/06/2024 with abdominal pain and [...] at present actually feeling little bit better [facility] Medical History Hyperlipidemia Wears hearing aid Post-menopausal [...] 75.3 H, Lymph % (Auto) 7.6 L, [place] % (Auto) 5.9, Eos % (Auto) 10.4 [...] Sl. Cloudy, Urine pH 6.0, Ur Specific [place] 1.020, Urine Protein 30 H, Urine Glucose [...] in the abdomen or pelvis. Reading Location: [facility] Abdomen Ultrasound 10/06/24 12:09 IMPRESSION: Multiple gallstones. Fatty infiltration of the liver. Reading Location: [facility] Assessment & Plan Assessment/Plan (1) UTI (urinary [...] Gross MD Charges/Coding Visit Charges Inpatient E&M: 56656 Init Hosp L2 10/06/24 1247 <Electronically signed by Estrella Gross MD> Cosigner Signature (if applicable): CC: Bishnu PUBLICITY EXPERT-C Blanquita Lim; Dr. Estrella Gross MD~ Signed [facility] Work Phone: 1(211) 141-653307-07-2025 Evaluation note* Diagnosis Onset Date Resolution Status Admit Date Elevated CPK acute October 06 5:28pm Elevated LFTs acute October 06, 025 5:28pm UTI (urinary tract infection) acute October 06, 2024 5:28pm [facility] Work Phone: 1(432) 728-330407-07-2025 Evaluation note* Diagnosis Onset Date Resolution Status Admit Date Elevated CPK inactive October 06 5:28pm Elevated LFTs inactive October 06, 2 025 5:28pm UTI (urinary tract infection) inacti ve October 06, 2024 5:28pm [facility] Work Phone: 1(660) 965-398507-07-2025 Evaluation note* Diagnosis Onset Date Resolution Status Admit Date Elevated CPK inactive October 06 5:28pm Elevated LFTs inactive October 06, 2 025 5:28pm UTI (urinary tract infection) inacti ve October 06, 2024 5:28pm Bilateral edema of lower extremity acute October 17, 2024 11:14am Transaminitis acute October 17, 2024 11:14am [facility] Work Phone: 1(532) 437-379307-07-2025 Evaluation note* Diagnosis Onset Date Resolution Status Admit Date Elevated CPK inactive October 06 5:28pm Elevated LFTs inactive October 06, 025 5:28pm UTI (urinary tract infection) inacti ve October 06, 2024 5:28pm Bilateral edema of lower extremity inactive October 17, 2024 11:14am Transaminitis inactive October 17, 2024 11:14am [facility] Work Phone: 1(449) 609-420107-07-2025 Evaluation note* Diagnosis Onset Date Resolution Status Admit Date Elevated CPK chronic October 06 5:28pm Elevated LFTs inactive October 06 025 5:28pm UTI (urinary tract infection) inacti ve October 06, 2024 5:28pm Bilateral edema of lower extremity inactive October 17, 2024 11:14am Transaminitis inactive October 17, 2024 11:14am [facility] Work Phone: 1([phone]) 533-581307-07-2025 Evaluation note* Diagnosis Onset Date Resolution Status Admit Date Elevated CPK chronic October 06 5:28pm Elevated LFTs inactive October 06 025 5:28pm UTI (urinary tract infection) inacti ve October 06, 2024 5:28pm Bilateral edema of lower extremity inactive October 17, 2024 11:14am Transaminitis inactive October 17, 2024 11:14am Peripheral edema acute November 052024 12:51pm Elevated CPK chronic November 05, 2024 12:51pm Elevated liver enzymes chronic Au 2024 12:51pm [facility] Work Phone: 1(802) 312-455107-07-2025 Evaluation note* Diagnosis Onset Date Resolution Status Admit Date Elevated CPK chronic October 06 5:28pm Elevated LFTs inactive October 06 025 5:28pm UTI (urinary tract infection) inacti ve October 06, 2024 5:28pm Bilateral edema of lower extremity inactive October 17, 2024 11:14am Transaminitis inactive October 17, 2024 11:14am Peripheral edema acute November 052024 12:51pm Elevated CPK chronic November 05, 2024 12:51pm Elevated liver enzymes chronic Au ramin 2024 12:51pm Elevated liver enzymes chronic Se ptember 2024 11:06am [facility] Work Phone: 1([phone]) 724-308907-07-2025 Discharge summary [facility] Medical Records Department [address] [place] [address] Emergency Department Summary 10/06/24 MR#: [id number] Acct: [id number] Name: TAMARA JOSE Rep #:[id number] : 1970 54 From: Will easleyett DO PCP: ALEXA Bob, PUBLICITY EXPERT-C Statu s:REG ER Location: ED HPI History [...] intact Psych: Cooperative, appropriate mood and affect [facility] Medical History Hyperlipidemia Wears hearing [...] ALT of 400. These have significantly increased fromJune 2024 on chart review. Direct bilirubin mildly [...] 75.3 H Lymph % (Auto) 7.6 L [place] % (Auto) 5.9 Eos % (Auto) 10.4 [...] Sl. Cloudy Urine pH 6.0 Ur Specific [place] 1.020 Urine Protein 30 H Urine Glucose [...] in the abdomen or pelvis. Reading Location: [facility] Abdomen Ultrasound 10/06/24 12:09 IMPRESSION: Multiple gallstones. Fatty infiltration of the liver. Reading Location: [place] [address] Discharge Plan Triage Chief Complaint: Abd Pain [...] Care Provider: Blanquita Lim Referrals: Blanquita Lim, PUBLICITY EXPERT-C [Primary Care Provider] - 3-5 Days Print Language: [place] Citizen Disposition Disposition: Home, Self Care What to do if you have Problems For any increased pain, shortness of breath, bleeding, nausea or vomiting, chestpain, or any unexpected problems, contact your Primary Care Provider. Call [facility] ([phone]) or report tothe closest Emergency Room. Call 911 if necessary. 10/06/24 1805 Cosigner Signature (if applicable): CC: ALEXA PUBLICITY EXPERT-C Blanquita Lim ~ Signed [facility]07-07-2025 History and physical note [facility] Medical Records Department [address] [facility] [place] [address] H&P Exam - Hospitalist 10/06/24 1727 MR#: [id number] Acct: [id number] Name: TAMARA JOSE Rep #:[id number] : 1970 54 From: Estrella Gross MD PCP: Blanquita Lim [facility], PUBLICITY EXPERT-C Statu s:REG ER Location: ED HPI - General General Date of Admission: 10/06/24 Date of Service: 10/06/24 Chief Complaint: Weakness, fatigue, aching muscles HPI Narrative TAMARA JOSE, is a 54-year-old female history of GERD, hypertension, hyperlipidemia who presented to [facility] ED 10/06/2024 with abdominal pain and [...] at present actually feeling little bit better [facility] Medical History Hyperlipidemia Wears hearing aid Post-menopausal [...] 75.3 H, Lymph % (Auto) 7.6 L, [place] % (Auto) 5.9, Eos % (Auto) 10.4 [...] Sl. Cloudy, Urine pH 6.0, Ur Specific [place] 1.020, Urine Protein 30 H, Urine Glucose [...] abdomen or pelvis. Reading [facility] Abdomen Ultrasound 10/06/24 12:09 IMPRESSION: Multiple gallstones. Fatty infiltration of the liver. Reading Location: [facility] Assessment & Plan Assessment/Plan (1) UTI (urinary [...] Gross MD Charges/Coding Visit Charges Inpatient E&M: 24765 Init Hosp L2 10/06/24 1748 Cosigner Signature (if applicable): CC: [facility] PUBLICITY EXPERT-C Blanquita Lim; Dr. Estrella Gross MD~ Signed [facility]07-07-2025 Radiology Diagnostic study note [facility] Imaging Services [address] [place], [place] [id number] Abdomen Limited MR#: [id number] Acct: [id number] Name: TAMARA JOSE Rep #: [id number] : 1970 F 54 From: Mick Machado MD PCP: ALEXA Bob, PUBLICITY EXPERT-C Status: REG ER Study:Abdomen Limited Date of Exam: 10/24 Exam# [id number] Ordering Dr: Will Tinsley DO PROCEDURE: ABDOMEN LIMITED 10/06/2024 REASON FOR EXAM: ELEVATED LIVER ENZYMES, ASSESS FOR LIVER/GALLBLADD COMPARISON: Prior CT scan of the abdomen and pelvis done earlier in the day. FINDINGS: Liver: Fatty infiltration of the liver. The liver is not enlarged. It rbrygacr22.2 cm. Gallbladder: Multiple gallstones are seen. Gallbladder wall is not thickened. Common bile duct: Normal measuring 4 mm. . Pancreas: Normal Other: Visualized portions of the right kidney are unremarkable. No right upperquadrant ascites. US/Abdomen Limited IMPRESSION: Multiple gallstones. Fatty infiltration of the liver. Reading Location: [place] [address] CC: [facility] PUBLICITY EXPERT-C Blanquita Lim; Dr. Will Silveira DO ~ Customer Program Specialist: Signed [facility]07-07-2025 Radiology Diagnostic study note [facility] Imaging Services [address] [place] [address] Abdomen/Pelvis W IV Cont ONLY MR#: [id number] Acct: [id number] Name: TAMARA JOSE Rep #: [id number] : 1970 F 54 From: Pet er Peer DO PCP: ALEXA Bob, PUBLICITY EXPERT-C Status: REG ER Study:Abdomen/Pelvis W IV Cont ONLY Date of E xam: 10/06/24 Exam# [id number] Ordering Dr: Will Tinsley DO PROCEDURE: ABDOMEN/PELVIS [...] abdomen or pelvis. Reading Location[facility] CC: [facility] JESSICA Lim; Dr. Will Zuniga-Angelic, ~ Customer Program Specialist: Signed [facility]02-21-2025 Evaluation note* Diagnosis Onset Date Resolution Status Admit Date CAD (coronary artery disease) acute May 23, 2024 12:57pm Hyperlipidemia acute May 042024 12:57pm Hypertension chronic May 12:57pm [facility] Work Phone: 1([phone]) 293-274305-20-2024 Hospital Discharge instructions* Discharge Instructions* Marion Wilson NP - 08/20/2023 5:40 PM EDT Have called in a prescription for Percocet to your pharmacy, please take this as directed pain relief. Medicine does contain Tylenol, do not take additional Tylenol when you are taking this medication. Return to the emergency department if you develop any new or worsening symptoms. documented in this encounterSaint [facility] [id number] History of Present illness Narrative* Kianna Juan RN - 08/20/2023 4:47 PM EDT Pt had 2 upper teeth extracted today. Now face swollen and having increased pain.pt has been rotating tylenol and ibuprofen with no relief. documented in this encounterSaint John Vianney [id number] History of Present illness Narrative* Christi Morgan MD - 03/03/2023 5:16 PM EST [facility] Emergency Department Encounter Note Patient Name: [...] Yellow (*) Clarity, Urine Hazy (*) Specific [place], Urine 1.010 pH, Urine 7.5 Leukocytes, Urine [...] tablet 1 tablet (1 tablet oral Given 03/03/23 1803) phenazopyridine (PYRIDIUM) tablet 190 mg (190 mg oral Given 03/03/23 1803) ED Pre-Disposition Vitals: Vitals: 03/03/23 1724 BP: [...] Christi Morgan MD 03/03/232157 [facility]* Diagnosis Acute cystitis without hematuria- Primary documented in this encounter [facility] noteNo assessment [facility] Work Phone: Evaluation note* Diagnosis Face pain- Primary Headache documented in this encounter [facility] note* Diagnosis Onset Date Resolution Status Admit Date Elevated CPK acute October 06 5:28pm Elevated LFTs acute October 06 025 5:28pm UTI (urinary tract infection) acute October 06, 2024 5:28pm [facility] Work Phone: History and physical note Author Estrella Gross [facility] Note Date/Time October 06, 2024 5:48p m [facility] Medical Records Department [address] [place] [address] H&P Exam - Hospitalist 10/06/24 1727 MR#: [id number] Acct: [id number] Name: TAMARA JOSE Rep #:[id number] : 1970 54 From: Estrella Gross MD PCP: Blanquita iLm [facility], PUBLICITY EXPERT-C Statu s:REG ER Location: ED HPI - General General Date of Admission: 10/06/24 Date of Service: 10/06/24 Chief Complaint: Weakness, fatigue, aching muscles HPI Narrative TAMARA JOSE, is a 54-year-old female history of GERD, hypertension, hyperlipidemia who presented to [facility] ED 10/06/2024 with abdominal pain and [...] at present actually feeling little bit better [facility] Medical History Hyperlipidemia Wears hearing aid Post-menopausal [...] 75.3 H, Lymph % (Auto) 7.6 L, [place] % (Auto) 5.9, Eos % (Auto) 10.4 [...] Sl. Cloudy, Urine pH 6.0, Ur Specific [place] 1.020, Urine Protein 30 H, Urine Glucose [...] abdomen or pelvis. [facility] Abdomen Ultrasound 10/06/24 12:09 IMPRESSION: Multiple gallstones. Fatty infiltration of the liver. Reading Location: [facility] Assessment & Plan Assessment/Plan (1) UTI (urinary [...] Gross MD Charges/Coding Visit Charges Inpatient E&M: 59836 Init Hosp L2 10/06/24 5488 <Electronically signed by Estrella Gross MD> Cosigner Signature (if applicable): CC: Bishnu PUBLICITY EXPERT-C Blanquita Lim; Dr. Estrella Gross MD~ Signed [facility] Work Phone: Hospital Discharge instructions* Attachments The following attachments cannot be sent through Care Everywhere. * UTI (Urinary Tract Infection): Female ([place] Citizen) [facility] Additional Inst[facility]: [facility] Work Phone: Hospital Discharge instructionsAdditional Instructions You were given a dose of IV Lasix 40 mg. Take the Lasix you have from the [facility] at home once daily. Call them for further instructions as they may need to increase it Travella frequently to help decrease the swelling. You also still have high liver enzymes and need to follow-up with a specialist for this.[facility] Work Phone: Hospital Discharge instructionsAmbulatory Orders* Rheumatology Location: None Selected [facility] Work Phone: Progress note Author Alexx Castillo [facility] Note Date/Time December 24, 2024 11:54am [facility] [address] [place] [address] OFFICE VISIT Date of Service: 12/24/24 MR#: [id number] Acct: [id number] Name: TAMARA JOSE Rep #: [id number] : 1970 Provider: Dr. Gaby Castillo MD Age/Sex: 54/F Location: [email or web address] Status: Signed Intake Vital Signs 12/04/24 08:52 12/24/24 11:19 Height 5 ft 9 in 5 ft 9 in Weight: 172 lb BMI 25.4 BP 117/80 Blood Pressure Location Rt brachial Position Sitting Pulse 111 H Pulse Oximetry (%) 96 Oxygen Delivery Method room air Intake Visit Reasons: F/u liver bx Allergies bee venom protein (honey bee) Allergy (Severe, Verified 12/24/24 11:13) Anaphylaxis Sulfa (Sulfonamide Antibiotics) Allergy (Severe, Verified 12/24/24 11:13) Anaphylaxis Medications ?Medication ?Instructions ?Recorded ?Confirmed ?Type cholecalciferol (vitamin D3) 50 100 mcg PO QDAY 12/24/24 History mcg (2,000 unit) capsule (Vitamin D3) lisinopril 40 mg tablet 40 mg PO QDAY 07/13/2312/24 History Held on 12/04/24. Instructions: Order Changed cranberry 500 mg capsule 500 mg PO DAILY 10/02/23 History fluticasone propionate 50 2 spray intranasal DAILY 12/24/24 History mcg/actuation nasal spray,suspension amlodipine 10 mg tablet 5 mg PO QDAY 05/23/24 History aspirin 81 mg tablet 81 mg PO QDAY 10/17/2412/24 History furosemide 20 mg tablet (Lasix) 20 mg PO QDAY 10/17/24 12/24/24 History icosapent ethyl 1 gram capsule 2 g PO BID 10/17/24 History levothyroxine 100 mcg tablet 100 mcg PO DAILY 1 month #30 tabs 12/04/24 12/24/24 Rx PFSH Medical History Elevated CPK UTI (urinary tract infection) Elevated LFTs Hyperlipidemia Wears hearing aid Post-menopausal History of steroid therapy Gastric reflux Non-smoker History of edema History of stress test Hypertension History of broken leg Kidney anomaly, congenital (~09/10/23) History of kidney problems delivery delivered Family History Grandmother Breast cancer Father Heart disease Myocardial infarction Mother Pulmonary embolism Social History Smoking Status: Never smoker alcohol intake: never substance use type: does not use HPI HPI Details: TAMARA JOSE, is a 54 F who presents to the office today for follow up. OV 8.6.25- hepatology consult for fatty liver and elevated LFTs. [facility] inpatient 7.7 -7.9 for rhabdomyolysis secondary to statin use and elevated liver enzymes. PHM includes HTN, HLD, CAD, GERD. TSH is elevated and recently started on levothyroxine 75 mcg by PCP, Blanquita Lim. She has been on statins for last couple years but from the beginning of this year she was feeling generalized weakness/fatigue and had to exert her for normal walking butshe thought she is working 2 jobs that [...] Never been a alcoholic. Denies substance use US abd/ elastography 9.4.25- Liver measures 16.4cm, Stiffness 9.1 kPa 9.4.25 Fib-4 3.90 OV 9.24.25- Pt well since last visit. Has been regaining strength. She is undergoing physical therapy. Some swelling in legs but has been wearing compression stockings. Denies abdominal pain or changes in bowel movements. Sheis also drinking heavy protein shake. ROS Const Constitutional: No fatigue, fever(s), weakness or weight change ENT ENT: No difficulty swallowing Resp Respiratory: No shortness of breath or wheezing Cardio Cardiology: No chest pain at rest or dyspnea on exertion Gastro GI: No abdominal pain, belching, bloating, change in bowel habits, change in stool character, coffee ground emesis, constipation, cramping, diarrhea, heartburn, difficulty swallowing, feeling full early, excessive flatus, incontinent of stools, Vomiting blood/hematemesis, Blood in stool, loose stools,Black,tarry stools, nausea/dyspepsia, pain with swallowing, vomiting or other Genitourinary-Female: No difficulty urinating or burning urination Musc Musculoskeletal: Positive for muscle weakness and stiffness; No joint pain Skin Skin: No yellowing of the eye or itchy eyes Neuro Neurology: No abnormal movements, behavioral changes, weakness or lack of coordination Psych Psychiatric: Positive for anxiety, No behavioral changes and No depression Endo Endocrine: No fatigue or weight change Aller/Imm Allergy/Immunologic: No itchy eyes or wheezing Terry/Lymp Hematologic/Lymphatic: No easy bleeding or easy bruising Exam Const General: cooperative, no acute distress and well developed Nutritional Appearance: average body habitus and overweight Orientation: alert, awake and oriented x3 Other: October 2024: Mainly fluid weight. 29.2 kg/m?, body weight 192 pounds Lost 20 pounds mainly the fluid weight from October 2024. Current 172 pound, BMI25.4 kg/m? [facility] Head: normocephalic and atraumatic Nose: external nose normal Face and sinus: normal facial exam Mouth: moist mucous membranes Eyes Pupils: PERRL EOM: EOM intact bilaterally Neck Neck: normal visual inspection, no meningeal signs and trachea midline Carotids: no bruits Chest Chest palpation & inspection: normal inspection of the chest Resp Effort & Inspection: normal respiratory effort and symmetric chest movement Auscultation: Bilateral: Clear to Auscultation Cardio Palpation: normal PMI Rate: regular rate Rhythm: regular rhythm Heart Sounds: S1 normal and S2 normal GI Auscultation: normal bowel sounds Percussion: normal to percussion Palpation: soft, no hepatosplenomegaly and no guarding Other: No ascites. No tenderness/guarding/rigidity. No palpable mass. General: bimanual renal exam normal bilaterally, bladder normal to inspection and bladder normal to palpation Bimanual Exam- Vagina & Uterus: bladder normal to palpation Musc Musculoskeletal: No joint tenderness, joint redness, joint warmth or decreased range of motion Thoracic/Lumbar Spine: thor and lumb spine abnorm to inspection Other: Noticeable muscle weakness of quadriceps muscles of thigh and calf. Bilateral weakness. Difficulty in getting up from chair, sitting up from supine position and cannot get up without pressing down arms. Imbalance and disequilibrium. Skin General: rashes and/or lesions noted, turgor normal and no erythema Wounds: wound noted Neuro General: patient alert, patient awake, patient oriented x3 and no focal motor deficits Speech: speech normal Motor: muscle tone normal throughout Extrem General: normal exam except as noted Other: No significant pedal edema Psych Appearance: grossly normal Mood: congruent mood Affect: normal affect Attitude: cooperative Assessment and Plan Assessment and Plan (1) Elevated liver enzymes: Status: Chronic Plan: ELF 12.7 which is more than 9.8 which is-related advanced fibrosis//early cirrhosis. [facility] lab work reviewed. She has elevated ALT in September 10, 2024 even before admission in October 06 for rhabdomyolysis. Her liver enzymes was getting better attime of discharge on 10/08 but again went up, the most recent 415 on October 23, improving 248 on 12/04. LDH elevated 857 Similarly,AST was also elevated since August 2024, 95, went up 458 on 10/06, 316 on 10/08, 478 on 10/10, 438 on 10/16, improving 313 on 12/04. ALP is normal. T. bili normal. CPK very elevated, about 5700: 10/06, highest 6231 on 10/10 and then 5826 on , slight improvement 5402 on 11/24. No good improvement in last 2 months as per CK. CK isoenzymes, CK MM elevated, which raise primarily from skeletal muscle. CRP elevated 0.85. Aldolase elevated. TSH high 11.2, 12.1 but free T4and free T4 normal 0.9, low normal Is recently started on levothyroxine 75 mcg daily by PCP. Liver ultrasound shows fatty infiltration, not enlarged, 16.2 cm. Multiple GB stones but GB wall not thickened. CBD 4 mm. Pancreas normal. Earlier abdominal CT done 10/06/2024 also shows liver spleen pancreas kidneys unremarkable. Normal ALP rules out liver disease due to cholestatic disease Liver ultrasound with elastography on 12/04 reported diffusely echogenic with lossof periportal echoes and decreased acoustic penetration. Portal vein patent, hepatopetal on spectral and Doppler Doppler. Control normal. No lesions identified. Elastography 9.1 kPa, median velocity 1.74 m/s, mainly F2/F3. Spleen normal. No ascites. Liver biopsy reviewed with the patient and her mother. Chronic hepatitis with portal lymphoid aggregates raising concern of drug-induced liver injury or concurrent viral hepatitis, mild steatosis 30% with active steatohepatitis. Periportal to bridging fibrosis. Trichrome stain shows patchy pericellular/perisinusoidal fibrosis and periportal to bridging fibrosis. Iron stain negative. PAS-D is negative for intracytoplasmic globules , Grade 2/4 and stage II-III/IV. Therefore, avoid hepatotoxic medication. Patient advised to stop unnecessary [id number] medications including cranberry. She is also drinking a lot ofprotein shake advised that she only needs 1 g up per kilo body weight of protein. Plan: Exact etiology of elevated liver enzymes unclear but suspected related torhabdomyolysis/myopathy. 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 Continue to hold statin/triglyceride. Hepatitis A, B and C are negative. Advised immunization against hepatitis A and B. Refer to chip washer Dr. Higgins. Follow-up labs ordered. Autoimmune hepatitis profile pending. Follow-up in 4 months after chip washer consultation Orders: Orders Comprehensive Metabolic Profil 6 Weeks R53.1 - Weakness, R74.8 - Abnormal levels of other serum enzymes Prothrombin Time w/INR 6 Weeks R53.1 - Weakness, R74.8 - Abnormal levels of other serum enzymes LDH 6 Weeks R53.1 - Weakness, R74.8 - Abnormal levels of other serum enzymes CRP 6 Weeks R53.1 - Weakness, R74.8 - Abnormal levels of other serum enzymes Coding Level of Care Code Off vis,est,level 4 History Detailed Exam Detailed Medical Decision Making High Complexity Diagnoses Elevated liver enzymes R74.8 12/24/24 1209 <Electronically signed by Alexx Castillo MD> Date _ Alexx Castillo MD Cosigner Signature: Date (if applicable) CC: VSC PUBLICITY EXPERT-C Blanquita Lim ~ [facility] Work Phone: Reason for referral (narrative)No reason for referral information availableWK[facility] Work Phone: Summary Purpose Family History No Family History Records Found Relationship Condition Age at Onset Recorded Date/T ángel grandmother Malignant neoplasm of breast Unknown father Cardiac disease Unknown Myocardial infarction Unknown mother Pulmonary embolism Unknown Advance Directives No Advanced Directives Records Found Advance Directive Response Recorded Date/ Time Do you have a Healthcare Power of Frame Aligner? No October 06, 2024 9:59am Advance Directive Response Recorded Date/ Time Do you have a Healthcare Power of Frame Aligner? No October 06, 2024 6:44pm Advance Directive Response Recorded Date/ Time Do you have a Healthcare Power of Frame Aligner? No October 16, 2024 3:32pm Do you have a Healthcare Power of Frame Aligner? No October 06, 2024 6:44pm Chief Complaint and Reason for Visit Chief Complaint SCREENING Chief Complaint Admit Date HYPERTENSION March 24, 2024 6:51am HYPERTENSION March 24, 2024 8:10am Moderate Plaque Formation (Raphael) Feb ru2024 12:57pm CAD/ASHD June 13, 2024 11: [...] ER F ELEVATED LIVER ENZYMES October 17, 025 11:14am INT LAB ORDERS October 30, [...] Elevated liver enzymes November 05, 2024 12:51pm Chief Complaint Admit Date abdom October 06, [...] 8pm FU November 05, 2024 12: 51pm HX OF RHABDO,LOWER LEG MUSCLE WEAKNESS,R X HERE November 28, 2024 1:00pm Chief Complaint Admit Date abdom October 06, [...] 8pm FU November 05, 2024 12: 51pm Abnormal levels of other serum enzymes S eptember 2024 7:38am F/u liver bx December 24, 2024 11:06am HX OF RHABDO,LOWER LEG MUSCLE WEAKNESS,R X HERE December 29, 2024 1:00pm Reason for Visit Admit Date Elevated CPK October 06, 2024 5:28p m Elevated LFTs October 06, 2024 5:28p m UTI (urinary tract infection) October 06, 2024 5:28pm Bilateral edema of lower extremity October 17, 2024 11:14am Transaminitis October 17, 2024 11:1 4am Peripheral edema November 05, 2024 12: 51pm Elevated CPK November 05, 2024 12: 51pm Elevated liver enzymes November 05, 2024 12:51pm Elevated liver enzymes December 24, 025 11:06am Additional Source Comments INFORMATION SOURCE (unrecogn ized section and content) DATE CREATED AUTHOR 07/28/2022 [facility] ([place]) DATE CREATED AUTHOR AUTHOR'S ORGANIZ ATION 01/20/2023 [facility] DATE CREATED AUTHOR AUTHOR'S ORGANIZ ATION 08/16/2023 [facility] DATE CREATED AUTHOR AUTHOR'S ORGANIZ ATION 08/22/2023 [facility] DATE CREATED AUTHOR AUTHOR'S ORGANIZ ATION 02/11/2025 [facility] Reason for Visit (unrecogniz ed section and [...] Care Teams (unrecognized sec tion and content) Pulp Screen Operator Relationship Specialty Start Date End Date Adithya Sullivan NP [address] [facility] [address] [place] [id number] PCP - General Nurse Practitioner 03/03/23 Team Status: Active Member Role Status Dates Dr. Nathanael Joyner MD Family Provider Active [facility] Primary Care Provider A ctive Team Status: Inactive Member Role Status Dates [facility] Primary Care Provider A ctive Blanquita Lim PUBLICITY EXPERT, PUBLICITY EXPERT-C Attending Provider, Ant loza Provider Active Pulp Screen Operator Relationship Specialty Start Date End Date Adithya Sullivan, PUBLICITY EXPERT [address] [place] [id number] PCP - General Nurse Practitioner 03/03/23 Team Status: Active Member Role Status Dates Blanquita Lim VSC, PUBLICITY EXPERT-C Primary Care Provider Activ e Team Status: Inactive Member Role Status Dates Blanquita Lim VSC, PUBLICITY EXPERT-C Primary Care Provider Activ e Start: March 24, 2024 End: March 24, 2024 Blanquita Lim VSC, PUBLICITY EXPERT-C Attending Provider Active Start: March 24, 2024 End: March 24, 2024 Blanquita Lim VSC, PUBLICITY EXPERT-C Referring Provider Active Start: March 24, 2024 End: March 24, 2024 Team Status: Active Member Role Status Dates Blanuqita Lim VSC, PUBLICITY EXPERT-C Primary Care Provider Activ e Start: March 24, 2024 Blanquita Lim VSC, PUBLICITY EXPERT-C Referring Provider Active Start: March 24, 2024 Blanquita Lim VSC, PUBLICITY EXPERT-C Other Provider Active Start: March 24, 2024 Dr. Jhon Caldwell MD Attending Provider Active S tart: March 24, 2024 Team Status: Inactive Member Role Status Dates Blanquita Lim VSC, PUBLICITY EXPERT-C Primary Care Provider Activ e Start: May 23, 2024 End: May 23, 2024 Blanquita Lim VSC, PUBLICITY EXPERT-C Referring Provider Active Start: May 23, 2024 End: May 23, 2024 Dr. Javier Morales MD Attending Provider Active Start: May 23, 2024 End: May 23, 2024 Team Status: Inactive Member Role Status Dates Blanquita Lim VSC, PUBLICITY EXPERT-C Primary Care Provider Activ e Start: June 13, 2024 End: June 13, 2024 Dr. Javier Morales MD Attending Provider Active Start: June 13, 2024 End: June 13, 2024 Dr. Javier Morales MD Referring Provider Active Start: June 13, 2024 End: June 13, 2024 Team Status: Active Member Role Status Dates Blanquita Raphael VSC, PUBLICITY EXPERT-C Primary Care Provider Activ e Start: June 17, 2024 Dr. Javier Morales MD Referring Provider Active Start: June 17, 2024 Dr. Javier Morales MD Other Provider Active St art: June 17, 2024 Dr. Vijay Mcclelland MD Attending Provider Activ e Start: June 17, 2024 Team Status: Active Member Role Status Dates Blanquita Lim VSC, PUBLICITY EXPERT-C Primary Care Provider Activ e Start: June 20, 2024 Blanquita Lim VSC, PUBLICITY EXPERT-C Attending Provider Active Start: June 20, 2024 Blanquitaarsalan Lim VSC, PUBLICITY EXPERT-C Referring Provider Active Start: June 20, 2024 Team Status: Inactive Member Role Status Dates Blanquita Lim VSC, PUBLICITY EXPERT-C Primary Care Provider Activ e Start: June 20, 2024 End: June 20, 2024 Blanquita Lim VSC, PUBLICITY EXPERT-C Attending Provider Active Start: June 20, 2024 End: June 20, 2024 Blanquita Lim VSC, PUBLICITY EXPERT-C Referring Provider Active Start: June 20, 2024 End: June 20, 2024 Team Status: Inactive Member Role Status Dates Blanquita Lim VSC, PUBLICITY EXPERT-C Primary Care Provider Activ e Start: September 10, 2024 End: September 10, 2024 Blanquita Lim VSC, PUBLICITY EXPERT-C Attending Provider Active Start: September 10, 2024 End: September 10, 2024 Team Status: Active Member Role/Relationship Status Dates Blanquita Lim VSC, PUBLICITY EXPERT-C Primary Care Provider Activ e Team Status: Inactive Member Role/Relationship Status Dates Blanquita Lim VSC, PUBLICITY EXPERT-C Primary Care Provider Activ e Start: June 13, 2024 End: June 13, 2024 Dr. Javier Morales MD Attending Provider Active Start: June 13, 2024 End: June 13, 2024 Dr. Javier Morales MD Referring Provider Active Start: June 13, 2024 End: June 13, 2024 Team Status: Active Member Role/Relationship Status Dates Blanquita SANTANAC, PUBLICITY EXPERT-C Primary Care Provider Activ e Start: June 17, 2024 Dr. Javier Morales MD Referring Provider Active Start: June 17, 2024 Dr. Javier Morales MD Other Provider Active St art: June 17, 2024 Dr. Vijay Mcclelland MD Attending Provider Activ e Start: June 17, 2024 Team Status: Inactive Member Role/Relationship Status Dates Blanquita Lim VSC, PUBLICITY EXPERT-C Primary Care Provider Activ e Start: June 20, 2024 End: June 20, 2024 Blanquita Lim VSC, PUBLICITY EXPERT-C Attending Provider Active Start: June 20, 2024 End: June 20, 2024 Blanquita Lim VSC, PUBLICITY EXPERT-C Referring Provider Active Start: June 20, 2024 End: June 20, 2024 Team Status: Inactive Member Role/Relationship Status Dates Blanquita Lim VSC, PUBLICITY EXPERT-C Primary Care Provider Activ e Start: September 10, 2024 End: September 10, 2024 Blanquita Lim VSC, PUBLICITY EXPERT-C Attending Provider Active Start: September 10, 2024 End: September 10, 2024 Team Status: Active Member Role/Relationship Status Dates Blanquita Lim VSC, PUBLICITY EXPERT-C Primary Care Provider Activ e Start: October 06, 2024 Dr. Will Silveira , DO Emergency Provider Activ e Start: October 06, 2024 Dr. Estrella Gross MD Attending Provider Active Start: October 06, 2024 Team Status: Active Member Role/Relationship Status Dates Blanquita SANTANAC, PUBLICITY EXPERT-C Primary Care Provider Activ e Start: October 06, 2024 Dr. Will Silveira DO Emergency Provider Activ e Start: October 06, 2024 Dr. Estrella Gross MD Admit Provider Active Star t: October 06, 2024 Dr. Estrella Gross MD Attending Provider Active Start: October 06, 2024 Team Status: Inactive Member Role/Relationship Status Dates Blanquita Lim VSC, PUBLICITY EXPERT-C Primary Care Provider Activ e Start: October 06, 2024 End: October 08, 2024 Dr. Will Silveira DO Emergency Provider Activ e Start: October 06, 2024 End: October 08, 2024 Dr. Estrella Gross MD Admit Provider Active Star t: October 06, 2024 End: October 08, 2024 Dr. Estrella Gross MD Other Provider Active Star t: October 06, 2024 End: October 08, 2024 Dr. Leo Leal , DO Attending Provider Active Start: October 06, 2024 End: October 08, 2024 Team Status: Active Member Role/Relationship Status Dates Blanquita Lim VSC, PUBLICITY EXPERT-C Primary Care Provider Activ e Start: October 07, 2024 Dr. Will Silveira , DO Emergency Provider Activ e Start: October 07, 2024 Dr. Estrella Gross MD Admit Provider Active Star t: October 07, 2024 Dr. Estrella Gross MD Other Provider Active Star t: October 07, 2024 Dr. Leo Leal , DO Attending Provider Active Start: October 07, 2024 Dr. Leo Leal , DO Other Provider Active S tart: October 07, 2024 Team Status: Inactive Member Role/Relationship Status Dates Blanquita Lim VSC, PUBLICITY EXPERT-C Primary Care Provider Activ e Start: June 20, 2024 End: June 20, 2024 Blanquita Lim VSC, PUBLICITY EXPERT-C Attending Provider Active Start: June 20, 2024 End: June 20, 2024 Blanquita Lim VSC, PUBLICITY EXPERT-C Referring Provider Active Start: June 20, 2024 End: June 20, 2024 Team Status: Inactive Member Role/Relationship Status Dates Blanquita Lim VSC, PUBLICITY EXPERT-C Primary Care Provider Activ e Start: September 10, 2024 End: September 10, 2024 Blanquita Lim VSC, PUBLICITY EXPERT-C Attending Provider Active Start: September 10, 2024 End: September 10, 2024 Team Status: Active Member Role/Relationship Status Dates Blanquita Lim VSC, PUBLICITY EXPERT-C Primary Care Provider Activ e Start: October 06, 2024 Dr. Will Silveira , DO Emergency Provider Activ e Start: October 06, 2024 Dr. Estrella Gross MD Attending Provider Active Start: October 06, 2024 Team Status: Inactive Member Role/Relationship Status Dates Blanquita Raphael VSC, PUBLICITY EXPERT-C Primary Care Provider Activ e Start: October 06, 2024 End: October 08, 2024 Dr. Will Silveira DO Emergency Provider Activ e Start: October 06, 2024 End: October 08, 2024 Dr. Estrella Gross MD Admit Provider Active Star t: October 06, 2024 End: October 08, 2024 Dr. Estrella Gross MD Other Provider Active Star t: October 06, 2024 End: October 08, 2024 Dr. Leo Leal , Attending Provider Active Start: October 06, 2024 End: October 08, 2024 Team Status: Active Member Role/Relationship Status Dates Blanquitahelena SANTANAC, PUBLICITY EXPERT-C Primary Care Provider Activ e Start: October 07, 2024 Dr. Will Silveira , Emergency Provider Activ e Start: October 07, 2024 Dr. Estrella Gross MD Admit Provider Active Star t: October 07, 2024 Dr. Estrella Gross MD Other Provider Active Star t: October 07, 2024 Dr. Leo Leal , Attending Provider Active Start: October 07, 2024 Dr. Leo Leal , DO Other Provider Active S tart: October 07, 2024 Team Status: Active Member Role/Relationship Status Dates Blanquitahelena SANTANAC, PUBLICITY EXPERT-C Primary Care Provider Activ e Start: October 08, 2024 Dr. Will Silveira , Emergency Provider Activ e Start: October 08, 2024 Dr. Estrella Gross MD Admit Provider Active Star t: October 08, 2024 Dr. Estrella Gross MD Other Provider Active Star t: October 08, 2024 Dr. Leo Leal , Attending Provider Active Start: October 08, 2024 Dr. Leo Leal , Other Provider Active S tart: October 08, 2024 Team Status: Inactive Member Role/Relationship Status Dates Blanquita Raphael SANTANAC, PUBLICITY EXPERT-C Primary Care Provider Activ e Start: October 10, 2024 End: October 10, 2024 Mackenzie Hernandez PUBLICITY EXPERT-C Attending Provider Active Start: October 10, 2024 End: October 10, 2024 Mackenzie Hernandez , PUBLICITY EXPERT-C Referring Provider Active Start: October 10, 2024 End: October 10, 2024 Team Status: Active Member Role/Relationship Status Dates Blanquita Lim VSC, PUBLICITY EXPERT-C Primary Care Provider Activ e Start: October 13, 2024 Mackenzie Hernandez PUBLICITY EXPERT-C Attending Provider Active Start: October 13, 2024 Mackenzie Hernandez , PUBLICITY EXPERT-C Referring Provider Active Start: October 13, 2024 Team Status: Inactive Member Role/Relationship Status Dates Blanquita Lim VSC, PUBLICITY EXPERT-C Primary Care Provider Activ e Start: October 16, 2024 End: October 16, 2024 Dr. Mulugeta Chaney , DO Emergency Provider Active Start: October 16, 2024 End: October 16, 2024 Team Status: Inactive Member Role/Relationship Status Dates Blanquita SANTANAC, PUBLICITY EXPERT-C Primary Care Provider Activ e Start: October 17, 2024 End: October 17, 2024 Blanquita Lim VSC, PUBLICITY EXPERT-C Referring Provider Active Start: October 17, 2024 End: October 17, 2024 Christi Shore PUBLICITY EXPERT-C Attending Provider Active Start: October 17, 2024 End: October 17, 2024 Team Status: Inactive Member Role/Relationship Status Dates Blanquita SANTANAC, PUBLICITY EXPERT-C Primary Care Provider Activ e Start: October 13, 2024 End: October 13, 2024 Mackenzie Hernandez PUBLICITY EXPERT-C Attending Provider Active Start: October 13, 2024 End: October 13, 2024 Mackenzie Hernandez PUBLICITY EXPERT-C Referring Provider Active Start: October 13, 2024 End: October 13, 2024 Team Status: Active Member Role/Relationship Status Dates Blanquita Lim VSC, PUBLICITY EXPERT-C Primary Care Provider Activ e Start: October 16, 2024 Dr. Mulugeta Chaney , DO Emergency Provider Active Start: October 16, 2024 Team Status: Inactive Member Role/Relationship Status Dates Blanquita Lim VSC, PUBLICITY EXPERT-C Primary Care Provider Activ e Start: September 10, 2024 End: September 10, 2024 Blanquita Lim VSC, PUBLICITY EXPERT-C Attending Provider Active Start: September 10, 2024 End: September 10, 2024 Team Status: Active Member Role/Relationship Status Dates Blanquita Lim VSC, PUBLICITY EXPERT-C Primary Care Provider Activ e Start: October 06, 2024 Dr. Will Silveira DO Emergency Provider Activ e Start: October 06, 2024 Dr. Estrella Gross MD Attending Provider Active Start: October 06, 2024 Team Status: Inactive Member Role/Relationship Status Dates Blanquita Lim VSC, PUBLICITY EXPERT-C Primary Care Provider Activ e Start: October 06, 2024 End: October 08, 2024 Dr. Will Silveira DO Emergency Provider Activ e Start: October 06, 2024 End: October 08, 2024 Dr. Estrella Gross MD Admit Provider Active Star t: October 06, 2024 End: October 08, 2024 Dr. Estrella Gross MD Other Provider Active Star t: October 06, 2024 End: October 08, 2024 Dr. Leo Leal , Attending Provider Active Start: October 06, 2024 End: October 08, 2024 Team Status: Active Member Role/Relationship Status Dates Blanquita LIU, PUBLICITY EXPERT-C Primary Care Provider Activ e Start: October 07, 2024 Dr. Will Silveira , Emergency Provider Activ e Start: October 07, 2024 Dr. Estrella Gross MD Admit Provider Active Star t: October 07, 2024 Dr. Estrella Gross MD Other Provider Active Star t: October 07, 2024 Dr. Leo Leal , Attending Provider Active Start: October 07, 2024 Dr. Leo Leal , DO Other Provider Active S tart: October 07, 2024 Team Status: Active Member Role/Relationship Status Dates Blanquita LIU, PUBLICITY EXPERT-C Primary Care Provider Activ e Start: October 08, 2024 Dr. Will Silveira , Emergency Provider Activ e Start: October 08, 2024 Dr. Estrella Gross MD Admit Provider Active Star t: October 08, 2024 Dr. Estrella Gross MD Other Provider Active Star t: October 08, 2024 Dr. Leo Leal , Attending Provider Active Start: October 08, 2024 Dr. Leo Leal , Other Provider Active S tart: October 08, 2024 Team Status: Inactive Member Role/Relationship Status Dates Blanquita LIU, PUBLICITY EXPERT-C Primary Care Provider Activ e Start: October 10, 2024 End: October 10, 2024 JESSICA Kauffman Attending Provider Active Start: October 10, 2024 End: October 10, 2024 JESSICA Kauffman Referring Provider Active Start: October 10, 2024 End: October 10, 2024 Team Status: Inactive Member Role/Relationship Status Dates Blanquita SANTANAC, PUBLICITY EXPERT-C Primary Care Provider Activ e Start: October 13, 2024 End: October 13, 2024 JESSICA Kauffman Attending Provider Active Start: October 13, 2024 End: October 13, 2024 Mackenzie Hernandez PUBLICITY EXPERT-C Referring Provider Active Start: October 13, 2024 End: October 13, 2024 Team Status: Inactive Member Role/Relationship Status Dates Blanquita SANTANAC, PUBLICITY EXPERT-C Primary Care Provider Activ e Start: October 16, 2024 End: October 16, 2024 Dr. Mulugeta Chaney , Attending Provider Active Start: October 16, 2024 End: October 16, 2024 Dr. Mulugeta Chaney , DO Emergency Provider Active Start: October 16, 2024 End: October 16, 2024 Team Status: Inactive Member Role/Relationship Status Dates Blanquita Lim VSC, PUBLICITY EXPERT-C Primary Care Provider Activ e Start: October 17, 2024 End: October 17, 2024 Blanquita SANTANAC, PUBLICITY EXPERT-C Referring Provider Active Start: October 17, 2024 End: October 17, 2024 Christi Shore NP-C Attending Provider Active Start: October 17, 2024 End: October 17, 2024 Team Status: Inactive Member Role/Relationship Status Dates Blanquita Raphael VSC, PUBLICITY EXPERT-C Primary Care Provider Activ e Start: October 23, 2024 End: October 23, 2024 Mackenzie Hernandez PUBLICITY EXPERT-C Attending Provider Active Start: October 23, 2024 End: October 23, 2024 JASMINA JulesC Other Provider Active St art: October 23, 2024 End: October 23, 2024 Team Status: Active Member Role/Relationship Status Dates Blanquita Lim VSC, PUBLICITY EXPERT-C Primary Care Provider Activ e Start: October 28, 2024 Mahesh Stauffer VSBishnu, PUBLICITY EXPERT-C Attending Provider Active Start: October 28, 2024 Team Status: Active Member Role/Relationship Status Dates Blanquita SANTANAC, PUBLICITY EXPERT-C Primary Care Provider Activ e Start: October 30, 2024 Christi Shore NP-C Attending Provider Active Start: October 30, 2024 Christi Shore PUBLICITY EXPERT-C Referring Provider Active Start: October 30, 2024 Team Status: Inactive Member Role/Relationship Status Dates Blanquita Lim VSC, PUBLICITY EXPERT-C Primary Care Provider Activ e Start: November 05, 2024 End: November 05, 2024 Blanquita Raphael VSC, PUBLICITY EXPERT-C Referring Provider Active Start: November 05, 2024 End: November 05, 2024 Dr. Alexx Castillo MD Attending Provider Active Start: November 05, 2024 End: November 05, 2024 Team Status: Inactive Member Role/Relationship Status Dates Blanquita Lim VSC, PUBLICITY EXPERT-C Primary Care Provider Activ e Start: October 28, 2024 End: October 28, 2024 Mahesh Stauffer VSC, PUBLICITY EXPERT-C Attending Provider Active Start: October 28, 2024 End: October 28, 2024 Team Status: Inactive Member Role/Relationship Status Dates Blanquita Raphael VSC, PUBLICITY EXPERT-C Primary Care Provider Activ e Start: October 30, 2024 End: October 30, 2024 Christi Shore PUBLICITY EXPERT-C Attending Provider Active Start: October 30, 2024 End: October 30, 2024 Christi Shore PUBLICITY EXPERT-C Referring Provider Active Start: October 30, 2024 End: October 30, 2024 Team Status: Inactive Member Role/Relationship Status Dates Blanquita Lim VSC, PUBLICITY EXPERT-C Primary Care Provider Activ e Start: November 24, 2024 End: November 24, 2024 Mackenzie Hernandez PUBLICITY EXPERT-C Attending Provider Active Start: November 24, 2024 End: November 24, 2024 Mackenzie Hernandez PUBLICITY EXPERT-C Referring Provider Active Start: November 24, 2024 End: November 24, 2024 Team Status: Active Member Role/Relationship Status Dates Blanquita Raphael VSC, PUBLICITY EXPERT-C Primary Care Provider Activ e Start: November 28, 2024 Mackenzie Hernandez PUBLICITY EXPERT-C Attending Provider Active Start: November 28, 2024 Mackenzie Hernandez PUBLICITY EXPERT-C Referring Provider Active Start: November 28, 2024 Team Status: Active Member Role/Relationship Status Dates Blanquita SANTANAC, PUBLICITY EXPERT-C Primary care physician Acti ve Team Status: Inactive Member Role/Relationship Status Dates Blanquita SANTANAC, PUBLICITY EXPERT-C Primary care physician Acti ve Start: September 10, 2024 End: September 10, 2024 Blanquita LIU, PUBLICITY EXPERT-C Attending physician Active Start: September 10, 2024 End: September 10, 2024 Team Status: Active Member Role/Relationship Status Dates Blanquita Lim VSC, PUBLICITY EXPERT-C Primary care physician Acti ve Start: October 06, 2024 Dr. Will Silveira DO Emergency Department Physician Active Start: October 06, 2024 Dr. Estrella Gross MD Attending physician Active Start: October 06, 2024 Team Status: Inactive Member Role/Relationship Status Dates Blanquita SANTANAC, PUBLICITY EXPERT-C Primary care physician Acti ve Start: October 06, 2024 End: October 08, 2024 Dr. Will Silveira DO Emergency Department Physician Active Start: October 06, 2024 End: October 08, 2024 Dr. Estrella Gross MD Admitting physician Active Start: October 06, 2024 End: October 08, 2024 Dr. Estrella Gross MD Nurse Practitioner Active Start: October 06, 2024 End: October 08, 2024 Dr. Leo Leal DO Attending physician Active Start: October 06, 2024 End: October 08, 2024 Team Status: Active Member Role/Relationship Status Dates Blanquita Lim MAX, PUBLICITY EXPERT-C Primary care physician Acti ve Start: October 07, 2024 Dr. Will Silveira DO Emergency Department Physician Active Start: October 07, 2024 Dr. Estrella Gross MD Admitting physician Active Start: October 07, 2024 Dr. Estrella Gross MD Nurse Practitioner Active Start: October 07, 2024 Dr. Leo Leal DO Attending physician Active Start: October 07, 2024 Dr. Leo Leal , Nurse Practitioner Active Start: October 07, 2024 Team Status: Active Member Role/Relationship Status Dates Blanquita SANTANA, PUBLICITY EXPERT-C Primary care physician Acti ve Start: October 08, 2024 Dr. Will Silveira DO Emergency Department Physician Active Start: October 08, 2024 Dr. Estrella Gross MD Admitting physician Active Start: October 08, 2024 Dr. Estrella Gross MD Nurse Practitioner Active Start: October 08, 2024 Dr. Leo Leal DO Attending physician Active Start: October 08, 2024 Dr. Leo Leal DO Nurse Practitioner Active Start: October 08, 2024 Team Status: Inactive Member Role/Relationship Status Dates Blanquita Lim MAX, PUBLICITY EXPERT-C Primary care physician Acti ve Start: October 10, 2024 End: October 10, 2024 Mackenzie Hernandez NP-C Attending physician Active Start: October 10, 2024 End: October 10, 2024 Mackenzie Hernandez PUBLICITY EXPERT-C Referring Provider Active Start: October 10, 2024 End: October 10, 2024 Team Status: Inactive Member Role/Relationship Status Dates Blanquita LIU, PUBLICITY EXPERT-C Primary care physician Acti ve Start: October 13, 2024 End: October 13, 2024 Mackenzie Hernandez PUBLICITY EXPERT-C Attending physician Active Start: October 13, 2024 End: October 13, 2024 Mackenzie Hernandez , PUBLICITY EXPERT-C Referring Provider Active Start: October 13, 2024 End: October 13, 2024 Team Status: Inactive Member Role/Relationship Status Dates Blanquita LIU, PUBLICITY EXPERT-C Primary care physician Acti ve Start: October 16, 2024 End: October 16, 2024 Dr. Mulugeta Chaney DO Attending physician Active Start: October 16, 2024 End: October 16, 2024 Dr. Mulugeta Chaney DO Emergency Depart ent Physician Active Start: October 16, 2024 End: October 16, 2024 Team Status: Inactive Member Role/Relationship Status Dates Blanquita LIU, PUBLICITY EXPERT-C Primary care physician Acti ve Start: October 17, 2024 End: October 17, 2024 Blanquita LIU, PUBLICITY EXPERT-C Referring Provider Active Start: October 17, 2024 End: October 17, 2024 JASMINA JulesC Attending physician Active Start: October 17, 2024 End: October 17, 2024 Team Status: Inactive Member Role/Relationship Status Dates Blanquita LIU, PUBLICITY EXPERT-C Primary care physician Acti ve Start: October 23, 2024 End: October 23, 2024 Mackenzie Hernandez NP-C Attending physician Active Start: October 23, 2024 End: October 23, 2024 JESSICA Jules Nurse Practitioner Active Start: October 23, 2024 End: October 23, 2024 Team Status: Inactive Member Role/Relationship Status Dates Blanquita LIU, PUBLICITY EXPERT-C Primary care physician Acti ve Start: October 28, 2024 End: October 28, 2024 Mahesh LIU, PUBLICITY EXPERT-C Attending physician Active Start: October 28, 2024 End: October 28, 2024 Team Status: Inactive Member Role/Relationship Status Dates Blanquita Raphael LIU, PUBLICITY EXPERT-C Primary care physician Acti ve Start: October 30, 2024 End: October 30, 2024 Christi Shore PUBLICITY EXPERT-C Attending physician Active Start: October 30, 2024 End: October 30, 2024 Christi Shore PUBLICITY EXPERT-C Referring Provider Active Start: October 30, 2024 End: October 30, 2024 Team Status: Inactive Member Role/Relationship Status Dates Blanquitahelena LIU, PUBLICITY EXPERT-C Primary care physician Acti ve Start: November 05, 2024 End: November 05, 2024 Blanquita LIU, PUBLICITY EXPERT-C Referring Provider Active Start: November 05, 2024 End: November 05, 2024 Dr. Alexx Castillo MD Attending physician Active Start: November 05, 2024 End: November 05, 2024 Team Status: Inactive Member Role/Relationship Status Dates Blanquita LIU, PUBLICITY EXPERT-C Primary care physician Acti ve Start: November 24, 2024 End: November 24, 2024 Mackenzie Hernandez PUBLICITY EXPERT-C Attending physician Active Start: November 24, 2024 End: November 24, 2024 Mackenzie Hernandez PUBLICITY EXPERT-C Referring Provider Active Start: November 24, 2024 End: November 24, 2024 Team Status: Inactive Member Role/Relationship Status Dates Blanquita LIU, PUBLICITY EXPERT-C Primary care physician Acti ve Start: December 04, 2024 End: December 04, 2024 Dr. Alexx Castillo MD Attending physician Active Start: December 04, 2024 End: December 04, 2024 Dr. Alexx Castillo MD Referring Provider Active Start: December 04, 2024 End: December 04, 2024 Team Status: Inactive Member Role/Relationship Status Dates Blanquita LIU, PUBLICITY EXPERT-C Primary care physician Acti ve Start: December 24, 2024 End: December 24, 2024 Blanquita LIU, PUBLICITY EXPERT-C Referring Provider Active Start: December 24, 2024 End: December 24, 2024 Dr. Alexx Castillo MD Attending physician Active Start: December 24, 2024 End: December 24, 2024 Team Status: Active Member Role/Relationship Status Dates Blanquita JESSICA Corcoran Primary care physician Acti ve Start: December 29, 2024 JESSICA Kauffman Attending physician Active Start: December 29, 2024 JESSICA Kauffman Referring Provider Active Start: December 29, 2024 Goals (unrecognized section and content) Goals [...] BE BASED ON THE PRIMARY CLINICAL RECORDS. [facility] [employer] provides no warranty or guarantee of the accuracy or completeness of information in this document.
--- NOTE | 2025-03-01 08:41 | EDS_ITS ---
HPI History of Present Illness Chief Complaint: Lower Extremity Injury Informant: patient and family Narrative Narrative: Patient is 54-year-old female with history of hypertension, hypothyroidism as well as rhabdomyolysis with associated transaminitis in September of this year (ultimately had liver biopsy was referred to rheumatology for concern of possible autoimmune process). She is presenting today with atraumatic right foot pain. Patient states 2 days ago she was black Sunday shopping and as a day went on she felt that she maybe stubbed her great toe and started to bother her as the day went on. Yesterday she had worsening pain and swelling to the foot and into the ankle. Seems to be centralized along the base of her great toe. Her foot is quite swollen. She states that she has been having nausea secondary to the pain. She notes that since September she been having intermittent chills and hot flashes which is not new. She denies any fever over the past few days. States that she did not have much appetite yesterday and only ate 2 slices of pizza the whole day. Did not take anything for pain as she is afraid to take any medication that she does not explicitly need. Denies any history of gout. [facility] Medical History Elevated CPK UTI (urinary tract infection) Elevated LFTs Hyperlipidemia Wears hearing aid Post-menopausal History of steroid therapy Gastric reflux Non-smoker History of edema History of stress test Hypertension History of broken leg Kidney anomaly, congenital (~09/10/23) History of kidney problems delivery delivered Home Medications ?Medication ?Instructions ?Recorded ?Last Taken ?Type cholecalciferol (vitamin D3) 50 100 mcg PO QDAY 10/10/23 History mcg (2,000 unit) capsule (Vitamin D3) lisinopril 40 mg tablet 40 mg PO QDAY 07/13/2310/10 History Held on 12/04/24. Instructions: Order Changed cranberry 500 mg capsule 500 mg PO DAILY 10/02/2301/23 History fluticasone propionate 50 2 spray intranasal DAILY Unknown History mcg/actuation nasal spray,suspension amlodipine 10 mg tablet 5 mg PO QDAY 05/23/24 Unknow n History aspirin 81 mg tablet 81 mg PO QDAY 10/17/24 Unkno wn History furosemide 20 mg tablet (Lasix) 20 mg PO QDAY 10/17/24 Unknown History icosapent ethyl 1 gram capsule 2 g PO BID 10/17/24 Unk nown History levothyroxine 100 mcg tablet 100 mcg PO DAILY 1 month #30 tabs 12/04/24 Unknown Rx colchicine 0.6 mg tablet 0.6 mg PO BID #14 tabs 03/01 Unknown Rx prednisone 20 mg tablet 40 mg (2 x 20 mg) PO DAILY # 8 tabs 03/01/25 Unknown Rx Allergy/AdvReac Type Severity Reaction Status Date / Time bee venom protein (honey bee) Allergy Severe Anaphylaxis Verified 03/01/25 07:47 Sulfa (Sulfonamide Allergy Severe Anaphylaxis Verified 03/01/25 07:47 Antibiotics) Family History Grandmother Breast cancer Father Heart disease Myocardial infarction Mother Pulmonary embolism Social History Smoking Status: Never smoker alcohol intake: never substance use type: does not use ROS ROS ED Constitutional Constitutional ED: Reports chills and sweats; Denies fever(s) Respiratory/Chest Respiratory/Chest: Denies cough Gastrointestinal Gastrointestinal: Reports nausea; Denies vomiting Musculoskeletal Musculoskeletal: Reports other Details: Right foot and great toe pain/swelling Integumentary Denies rash Neurologic Neurologic: Denies paresthesias or weakness Hematologic/Lymphatic Hematologic/Lymphatic: Denies easy bleeding or easy bruising EXAM Physical Exam Const Vital Signs: 03/01/25 07:47 03/01/25 09:53 03/01/25 11:00 Temperature 98.6 F Temperature Source Temporal Pulse Rate 126 H 105 H 101 H Respiratory Rate 16 20 H Blood Pressure 126/82 H 104/68 102/64 Blood Pressure Mean 96 80 76 Pulse Ox 100 95 97 Oxygen Delivery Method Room Air Room Air Room Air Positive well nourished and well developed General Appearance ED: well developed and NAD HEENT Reports moist mucous membranes Chest Wall inspection of chest normal Resp normal respiratory effort and clear to auscultation bilaterally Cardio regular rate and regular rhythm Cardio Narrative: 2+ DP pulses GI non-tender Inspection: Negative for abdominal distention Auscultation: normoactive bowel sounds Palpation: soft; Negative for tender or guarding Extremity Extremity Narrative: No obvious deformity present. Of the right lower extremity compartments are soft. She has soft tissue swelling most pronounced over the dorsum of the right foot. Significant tenderness to palpation with even very light touch at the first MCP and the medial distal foot. Pain with range of motion of the great toe. Minimal tenderness to palpation of the right ankle. No tenderness palpation along the lower leg. Normal left lower extremity. Neuro oriented x3, moves all extremities and no sensory deficits noted Psych Mood & Affect: anxious Skin Skin Narrative: Warmth that is asymmetric to the right foot and some mild erythema over the right MCP. No petechia present. MDM MDM MDM Narrative Medical decision making narrative: Patient is evaluated for atraumatic right foot pain swelling and warmth. She does have history of this profound muscle weakness requiring months of physical therapy in the setting of rhabdomyolysis. She has been referred to rheumatology but unfortunately she was out of network. Workup looking for cause of the swelling performed including recurrent rhabdomyolysis, uric acid to check level as gout is on the differential, inflammatory markers and signs of infection. She does not have an overlying rash consistent with shingles. Lower suspicion for overlying cellulitis based on the physical exam. She has a mild leukocytosis of 12.7 which is nonspecific however her immature granulocytes are normal. She has a baseline transaminitis which is stable and actually downtrending. She does have a continued elevation of her CPK at 1716 however it is down from where it was this summer (around 5000). CRP is elevated at 28 which is nonspecific. X-ray viewed by myself as well as radiology shows soft tissue swelling but no acute process otherwise. I highly suspect she has some type of underlying myositis or inflammatory condition. Will treat empirically for gout with colchicine and steroids. Counseled that this time I have a low suspicion for septic joint. At this time the pain is not distinctly localized to 1 joint as it includes the 1st and 2nd MCP joints. Will defer arthrocentesis at this time however is given strict return precautions including developing fever, worsening pain or redness overlying it concerning for cellulitis. Is started on colchicine in the ER as well as prednisone. I did discuss the case with podiatry call, Dr. Waterman to help facilitate close outpatient follow-up. Again stressed the importance with patient and her mother about outpatient follow-up with PCP and further referral to rheumatology as she needs further workup for this continued rhabdomyolysis/myositis. On repeat evaluation patient does feel improved with ibuprofen. Does not have short arc range of motion pain of the toe now. Swelling seems slightly improved. Given a postop shoe. Patient does report to me that she drinks around a gallon of milk a day. Unsure if this could be related to her presentation. Her calcium level however is normal. She denied any fevers or urinary symptoms concerning for central cord process as the cause of her ongoing weakness. She feels that her strength actually slowly been improving with physical therapy over the past few months. Lab Data Attestation: I reviewed the patient's lab results. Labs: Laboratory Results - last 24 hr 03/01/25 08:55 WBC 12.7 H RBC 4.52 Hgb 13.9 Hct 41.2 MCV 91.2 MCH 30.8 MCHC 33.7 RDW Std Deviation 46.2 H RDW Coeff of Micheal 13.8 Plt Count 272 MPV 11.2 Immature Gran % (Auto) 0.600 Neut % (Auto) 83.8 H Lymph % (Auto) 7.7 L Dundy % (Auto) 6.8 Eos % (Auto) 0.8 Baso % (Auto) 0.3 Absolute Neuts (auto) 10.6 H Absolute Lymphs (auto) 0.98 Nucleated RBC % 0 ESR 28 Sodium 133 Potassium 4.7 Chloride 98 Carbon Dioxide 22.8 Anion Gap 12 BUN 14 Creatinine 0.45 L Est GFR (MDRD) Non-Af 114 BUN/Creatinine Ratio 30.8 H Glucose 116 H Uric Acid 6.3 H Calcium 9.7 Total Bilirubin 0.74 AST 105 H ALT 68 H Alkaline Phosphatase 52 Total Creatine Kinase 1716 H C-React Prot Ext Range 28.00 H Total Protein 6.8 Albumin 3.7 Globulin 3.1 Albumin/Globulin Ratio 1.2 Radiography Diagnostic Testing: Clinical Impression(s) from Imaging Studies Foot X-Ray 03/01/25 08:55 IMPRESSION: Soft tissue swelling without acute bony abnormality. No definite erosive change. Bunion and hallux valgus as above. If concern persists, consider MRI. Reading [facility] X-ray reviewed by myself as well as radiology. No acute fracture noted Management Discussion w/another healthcare provider: Finishing Department Supervisor (Podiatry-Dr. Gonzalez) Discharge Plan Triage Chief Complaint: Lower Extremity Injury ED Provider: Camille Harris Dx/Rx/DC Orders Clinical Impression: Gout attack, Elevated CPK, Acute pain of right foot Instructions: ED Gout Prescriptions: New prednisone 20 mg tablet 40 mg PO DAILY Qty: 8 0RF colchicine 0.6 mg tablet 0.6 mg PO BID Qty: 14 0RF Rx Instructions: can stop when pain/flair improves No Action lisinopril 40 mg tablet 40 mg PO QDAY cholecalciferol (vitamin D3) [Vitamin D3] 50 mcg (2,000 unit) capsule 100 mcg PO QDAY fluticasone propionate 50 mcg/actuation spray,suspension 2 spray intranasal DAILY amlodipine 10 mg tablet 5 mg PO QDAY icosapent ethyl 1 gram capsule 2 g PO BID furosemide [Lasix] 20 mg tablet 20 mg PO QDAY aspirin 81 mg tablet 81 mg PO QDAY cranberry 500 mg capsule 500 mg PO DAILY Rx Instructions: administer with a meal levothyroxine 100 mcg tablet 100 mcg PO DAILY 30 Days Qty: 30 2RF Primary Care Provider: Mackenzie Hernandez Referrals: Mackenzie Hernandez, VERA[facility]C [Primary Care Provider, Family Practice] Mary Gonzalez DPM [Med Staff - Active Staff, Podiatry] Activity Restrictions/Additional Instructions: I suspect you have inflammation in your foot, likely from gout, that is causing your pain. You have been given prescription medications to help calm down this inflammation which will also help with the pain. Please take the entire course of steroids. If the pain has improved significantly you can stop the other medi cation (colchicine). Please follow-up closely with podiatry. As we discussed I do think you also would benefit from outpatient follow-up with rheumatology for further evaluation of this ongoing elevation of your CPK as well as your muscle weakness. If you develop fever, worsening redness or pain to the foot please do not hesitate to return the emergency room. Print Language: Chinese Disposition Disposition: Home, Self Care
--- NOTE | 2025-03-01 08:55 | RAD_ITS ---
PROCEDURE: Foot minimum three views right 03/01/2025 REASON FOR EXAM: INJURY/PAIN TECHNIQUE: Procedure Code: RADFO Modality: DX Procedure: FOOT MIN 3 VIEWS Laterality: Right COMPARISON: None FINDINGS: There is a small bunion along the 1st metatarsal head with mild hallux valgus. There is soft tissue swelling around the metatarsal region. No acute fracture or dislocation. RAD/Foot min 3 Views IMPRESSION: Soft tissue swelling without acute bony abnormality. No definite erosive change . Bunion and hallux valgus as above. If concern persists, consider MRI. Reading [facility]
[2025-03-01 09:02] LABS: Hematocrit 41.2 % (37-47); Hemoglobin 13.9 g/dL (12.0-15.0); Immature Granulocytes Count 0.070 X10^3/uL (0.0-0.0); Mean Corp Hgb Conc 33.7 g/dL (32-36); Mean Corpuscular Volume 91.2 fL (81-99); Mean Platelet Vol. 11.2 fl (6.2-12.0); NRBC Flagged by Analyzer 0 % (0-5); Platelet Count 272 K/mm3 (150-450); RBC Distribution Width CV 13.8 % (11.6-14.6); RBC Distribution Width SD 46.2 fl (35.1-43.9); Red Blood Count 4.52 M/mm3 (4.2-5.4); White Blood Count 12.7 K/mm3 (4.4-11.0)
[2025-03-01 09:38] LABS: AST(SGOT) 105 U/L (<=31); Alanine Aminotransfer ALT/SGPT 68 U/L (<=34); Albumin, Serum 3.7 g/dL (3.5-5.0); Alkaline Phosphatase 52 U/L (35-104); Anion Gap 12 (5-15); BUN 14 mg/dL (4-19); BUN/Creat Ratio 30.8 RATIO (10-20); CPK Total, Creatine Kinase 1716 U/L (24-195); CRP 28.00 mg/L (0.0-3.0); Calcium,Total 9.7 mg/dL (7.6-11.0); Carbon Dioxide 22.8 mmol/L (21.0-32.0); Chloride 98 mmol/L (98-108); Globulin 3.1 g/dL (2.2-4.2); Glucose 116 mg/dL (70-99); Potassium 4.7 mmol/L (3.3-5.1); Uric Acid 6.3 mg/dL (2.6-6.0)
[2025-03-01 09:53] VITALS: BP 104/68; PULSE 105; O2SAT 95
[2025-03-01 11:00] VITALS: BP 102/64; PULSE 101; RESP 20; O2SAT 97
[2025-03-01 11:19] VITALS: BP 108/62; PULSE 93; RESP 18; TEMP 36.6; O2SAT 97
== END 2025-03-01 11:32 | disposition home or self-care (01) ==
PROVIDERS: Emergency Provider Emergency Medicine; PCP Nurse Practitioner Family; Visit Provider Emergency Medicine
DX: M79.671 Pain in right foot (principal); R53.1 Weakness; Z82.49 Family history of ischemic heart disease and other diseases of the circulatory system; R79.82 Elevated C-reactive protein (CRP); I10 Essential (primary) hypertension; R11.0 Nausea; E78.5 Hyperlipidemia, unspecified; M10.9 Gout, unspecified; K21.9 Gastro-esophageal reflux disease without esophagitis; E03.9 Hypothyroidism, unspecified
CPT/HCPCS: 73630; 80053; 82550; 84550; 85025; 85652; 86140; 96374; 99283; A4216